=== PATIENT | female | born 1940 | race Caucasian/White ===

== ENCOUNTER 2018-07-13 19:51 | Inpatient (IN) | payer MEDICAID, OTHER ==
[~2018-07-13] VITALS: Ht 157.5 cm; Wt 61.7 kg
[2018-07-13] MEDS ORDERED: ONDANSETRON 4 MG INJ IV STA (20:16)
[2018-07-13] MEDS ORDERED: morphine 4 MG/ML VIAL IV STA (20:16)
[2018-07-13] MEDS ORDERED: SODIUM POLYSTYRENE 15 GM KIT (POWDER + SORBITOL) PO ONE ×2 (21:00→23:30)
--- NOTE | 2018-07-13 21:41 | ERD ---
ER Documentation Chief Complaint Chief Complaint NV W/ COOPER X 3 DAYS; X3 MISSED HD SESSIONS D/T TRANSPORTATION ISSUES HPI 78-year-old female history of end-stage renal disease on dialysis who is now missed the last 3 dialysis sessions. There is an issue because the last transport apparently dropped the patient who suffered a tib-fib fracture on the right and a stump contusion on the left treated at an outside hospital. The family has not been able to arrange transfer to dialysis center. The patient is complaining of a mild headache, generalized malaise weakness and discomfort. During the patient's encounter translation services were utilized Language: Yi Source: In person ROS All systems reviewed and are negative except as per history of present illness. Allergies Allergies: Coded Allergies: No Known Allergy (Unverified , 07/13/18) PMhx/Soc History of Surgery: Yes (BTK,BYPASS) Hx Cardiac Disorders: Yes (HTN) Hx Miscellaneous Medical Probl: Yes (DM,CKF) Hx Alcohol Use: No Hx Substance Use: No Hx Tobacco Use: No Smoking Status: Never smoker FmHx Family History: No diabetes Physical Exam Vitals Vital Signs Date Temp Pulse Resp B/P (MAP) Pulse Ox O2 O2 Flow FiO2 Time Delivery Rate 07/13/18 98.0 63 18 164/63 100 Room Air 20:25 (96) 07/13/18 98.0 75 12 162/78 99 19:58 (106) Physical Exam General: Well developed, well nourished, no acute distress Head: Normocephalic, atraumatic. Eyes: Pupils equally reactive, EOM intact ENT: Moist mucous membranes Neck: Supple, no lymphadenopathy Respiratory: Lungs clear bilaterally, no distress Cardiovascular: RRR, no murmurs, rubs, or gallops Abdominal: Soft, non-tender, non-distended, no peritoneal signs : Deferred MSK: Right lower extremity in a splint appropriately perfused distally. Contusion to the left stump of the lower extremity. Neurologic: Alert and oriented, moving all extremities, normal speech, no focal weakness, no cerebellar signs Skin: No rash Psych: Normal mood Result Diagram: 07/13/18200907/13/182009 Results 24 hrs Laboratory Tests Test 07/13/18 20:10 07/13/18 20:14 White Blood Count 6.6 10^3/ul Red Blood Count 3.54 10^6/ul Hemoglobin 10.9 g/dl Hematocrit 34.1 % Mean Corpuscular Volume 96.3 fl Mean Corpuscular Hemoglobin 30.8 pg Mean Corpuscular Hemoglobin Concent 32.0 g/dl Red Cell Distribution Width 14.9 % Platelet Count 344 10^3/UL Mean Platelet Volume 9.7 fl Immature Granulocytes % 0.500 % Neutrophils % 70.3 % Lymphocytes % 19.2 % Monocytes % 8.5 % Eosinophils % 1.2 % Basophils % 0.3 % Nucleated Red Blood Cells % 0.0 /100WBC Immature Granulocytes # 0.030 10^3/ul Neutrophils # 4.7 10^3/ul Lymphocytes # 1.3 10^3/ul Monocytes # 0.6 10^3/ul Eosinophils # 0.1 10^3/ul Basophils # 0.0 10^3/ul Nucleated Red Blood Cells # 0.0 10^3/ul Prothrombin Time 13.6 Sec Prothrombin Time Ratio 1.1 INR International Normalized Ratio 1.03 Activated Partial Thromboplast Time 41.2 Sec Sodium Level 130 mmol/L Potassium Level 5.6 mmol/L Chloride Level 96 mmol/L Carbon Dioxide Level 17 mmol/L Anion Gap 17 Blood Urea Nitrogen 66 mg/dl Creatinine 5.66 mg/dl Est Glomerular Filtrat Rate mL/min mL/min Glucose Level 93 mg/dl Calcium Level 8.2 mg/dl Troponin I < 0.012 ng/ml POC Venous Lactate 1.6 mmol/L Current Medications Medications Dose Sig/Tamera Start Time Status Last (Trade) Ordered Route PRN Stop Time Admin Dose Reason Admin Morphine 4 mg ONCE STAT 07/13/18 DC 07/13/18 Sulfate IV 20:16 07/13/18 20:20 (morphine) 20:17 Ondansetron 4 mg ONCE STAT 07/13/18 DC 07/13/18 HCl (Zofran IV 20:16 07/13/18 20:20 Inj) 20:17 Sodium 15 gm ONCE ONCE 07/13/18 DC 07/13/18 Polystyrene PO 21:00 07/13/18 21:15 Sulfonate 21:01 (Kayexelate 15 Gm Kit (Powder+Sorbi steven)) Ondansetron 4 mg ER BRIDGE 07/13/18 HCl (Zofran PRN IV 22:00 07/14/18 Inj) NAUSEA/VOMITI 21:59 NG 650 mg ER BRIDGE 07/13/18 Acetaminophen PRN PO 22:00 07/14/18 (Tylenol .MILD PAIN 21:59 Tab) 1-3 OR TEMP Procedures/MDM EKG, MONITORS, & DIAGNOSTIC IMAGING: EKG: I reviewed and interpreted a 12-lead EKG. Rhythm: Normal sinus rhythm ST Changes: No contiguous ST segment elevations T waves: No contiguous T wave inversions Impression: [No evidence of acute cardiac ischemia] CXR IMPRESSION: 1. Cardiomegaly and pulmonary edema with right pleural effusion. 2. Aortic atherosclerosis. 3. Previous median sternotomy. RPTAT:AAJJ CT brain IMPRESSION: 1. No acute intracranial pathology. 2. Mild to moderate diffuse volume loss and mild chronic microvascular ischemic changes. 3. Small right posterior frontal cortical infarct near the vertex. 4. Air-fluid levels in the bilateral sphenoid sinuses which may represent acute sinusitis in the correct clinical setting. RPTAT: HPNM LAB INTERPRETATION: * No evidence of infection with a normal hemoglobin and normal white count * Chemistry with only subtle hyper kalemia 5.6. BUN 66 creatinine 5.66, normal lactate, negative troponin MEDICAL DECISION MAKING: Patient presents with generalized malaise and weakness. She has missed 3 episodes of dialysis. The patient needs to be evaluated for Location such as volume overload and hyperkalemia. She is complaining of a mild headache and warrant CT imaging of the brain. ER COURSE: * Slight hyperkalemia without EKG changes. Written for Kayexalate. The patient vomited the Kayexalate. No indication to rapidly lower the potassium. Dialysis will be appropriate. * Patient was given pain control medication and will be admitted for further management. CONSULTATION: [None] DISPOSITION PLAN: Telemetry admission Accepting care team and consultations: I discussed the current laboratory data, diagnostic imaging and emergency care provided. Admitting team: Dr. Guy Parada Diagnosis: Primary Impression: Hyperkalemia Additional Impressions: End stage renal disease on dialysis Hyponatremia Condition: Stable FADUMO SUE MD Jul 13, 2018 21:41
[2018-07-13] MEDS ORDERED: ASPI81TA50 PO (22:00)
[2018-07-13] MEDS ORDERED: ACETAMINOPHEN 325 MG TAB PO PRN ×2 (22:00→23:30)
[2018-07-13] MEDS ORDERED: ONDANSETRON 4 MG INJ IV PRN (22:00)
[2018-07-13] MEDS ORDERED: CARV3.1260 PO (22:03)
[2018-07-13] MEDS ORDERED: ATOR40TA68 PO (22:03)
[2018-07-13] MEDS ORDERED: PANT20TA2 PO (22:03)
[2018-07-13] MEDS ORDERED: TRAM50TA2 PO (22:03)
[2018-07-13] MEDS ORDERED: NEPH PO (22:03)
[2018-07-13] MEDS ORDERED: CLON-379 PO (22:03)
[2018-07-13] MEDS ORDERED: ISOS60TA PO (22:03)
[2018-07-13 22:16] VITALS: PULSE 80
[2018-07-13 22:27] VITALS: Ht 157.5 cm; Wt 61.7 kg
[2018-07-13] MEDS ORDERED: GLUCOSE GEL 15 GRAM TUBE BUCCAL PRN (23:30)
[2018-07-13] MEDS ORDERED: DEXTROSE 50% 50 ML SYRINGE IV PRN (23:30)
[2018-07-13] MEDS ORDERED: GLUCOSE GEL 15 GRAM TUBE PO PRN ×2 (23:30)
[2018-07-13] MEDS ORDERED: GLUCAGON 1 MG INJ IM PRN (23:30)
[2018-07-14] VITALS (25 sets, daily range): BP systolic 119–197; BP diastolic 50–85; PULSE 62–137; RESP 18–20
[2018-07-14] MEDS: ONDANSETRON 4 MG INJ IV PRN ×4 (00:41→23:30)
[2018-07-14] MEDS: traMADol 50 MG TAB PO PRN (02:00)
[2018-07-14] MEDS ORDERED: PENDING SANTYL ORDER FOR WOUND CARE XX PRN (04:30)
[2018-07-14] MEDS: PANTOPRAZOLE SODIUM 20 MG TABEC PO SCH (05:50)
[2018-07-14] MEDS: HYDROCODONE/APAP (5/325) TAB PO PRN ×2 (06:34→13:03)
[2018-07-14] MEDS ORDERED: HYDROmorphONE 0.5 MG/0.5 ML SYG IV PRN ×2 (07:30→15:30)
[2018-07-14] MEDS: INSULIN ASPART [NOVOLOG] 3 ML PEN SC SCH ×3 (07:48→17:36)
[2018-07-14] MEDS: MULTIVIT/CA CARB/B CMPLX/FA TAB PO SCH (08:08)
[2018-07-14] MEDS: ISOSORBIDE MONONITRATE(SR)60 MG TAB PO SCH (08:08)
[2018-07-14] MEDS: ASPIRIN (EC) 81 MG TAB PO SCH (08:08)
[2018-07-14] MEDS: hydrALAzine 20 MG INJ IV PRN (11:56)
[2018-07-14] MEDS: HYDROmorphONE 0.5 MG/0.5 ML SYG IV PRN (14:25)
--- NOTE | 2018-07-14 14:44 | QN ---
Documentation Comment [id number] SAM KRUEGER MD Jul 14, 2018 14:44
--- NOTE | 2018-07-14 15:12 | HP ---
DATE OF ADMISSION: 07/13/2018 HISTORY OF PRESENT ILLNESS: The patient is with history of ESRD, hypertension, diabetes mellitus, CA D, CHF. The patient has diabetic neuropathy, left eye blindness, has a left below the knee amputatio n. The patient is a poor historian. Denies any fall, but has missed dialysis because of transportat ion issue. She has right lower extremity brace. It is not clear which hospital it was placed in. T he patient does not remember. She presented to this hospital with missing dialysis. The patient was also complaining of pain. The patient's blood pressure was 164/63 in the ER. Potassium was 5.6, BU N 66 and creatinine 5.66. The patient's chest x-ray shows cardiomegaly and pulmonary edema, right pl eural effusion, aortic atherosclerosis, previous median sternotomy. CT brain: No acute intracranial pathology, mild to moderate diffuse volume loss and mild chronic microvascular ischemic changes, sma ll right posterior frontal cortical infarct in the vertex, air fluid levels in the bilateral sphenoid sinuses which may represent acute sinusitis in the correct clinical setting. The patient is complai dustin of pain. Denies any fall or trauma recently. PAST MEDICAL HISTORY: ESRD, hypertension, diabetes mellitus, left BKA, left eye blindness, diabetic retinopathy, CHF, CAD as per patient, history of heart surgery. ALLERGY HISTORY: NEGATIVE. FAMILY HISTORY: Noncontributory. SOCIAL HISTORY: Negative. MEDICATION HISTORY OF PATIENT AT HOME: Listed as: 1. Aspirin. 2. Lipitor. 3. Coreg. 4. Clonidine. 5. Isosorbide. 6. Multiple vitamins. 7. Protonix. 8. Tramadol. 9. Tylenol. 10. Aspirin. 11. Catapres. 12. Hydralazine. 13. Insulin. 14. Zofran. 15. Dilaudid. REVIEW OF SYSTEMS HEENT: Diabetic retinopathy. RESPIRATORY: No shortness of breath or chest pain. ABDOMEN: Unremarkable. EXTREMITIES: Pain in the left stump area. CENTRAL NERVOUS SYSTEM: Unremarkable. PHYSICAL EXAMINATION: GENERAL: The patient is anxious looking female, awake, alert. VITAL SIGNS: Pulse 87, blood pressure 196/85. HEENT: Head is atraumatic, normocephalic. Pupils: Left eye is cloudy, mild conjunctival icterus. NECK: Supple. No JVD. LUNGS: Clear with few basilar rales bilaterally. HEART: The patient has a systolic murmur noted, III/. Component of diastolic murmur also noted at the apex and left sternal border. ABDOMEN: Soft. Bowel sounds are present. No palpable mass or hepatosplenomegaly. Bowel sounds are heard. No palpable. EXTREMITIES: No cyanosis, clubbing. The patient has right lower extremity brace noted. Left stump has bruise. Range of motion is restricted because of the pain. IMPRESSION: 1. Hyperkalemia due to missed hemodialysis. 2. Hyponatremia. 3. Metabolic acidosis. 4. Cardiomegaly and pulmonary edema. 5. Aortic atherosclerosis. 6. History of congestive heart failure. 7. History of diabetic retinopathy, nephropathy. 8. Hypoalbuminemia. 9. The patient has right lower extremity brace. 10. Left stump bruise. PLAN: To obtain x-ray of the right ankle as well as left stump. Continue blood pressure control. C ontinue on Kayexalate, diabetic renal diet, sliding scale, pain medication, hemodialysis. Orders wer e done. Dictated By: SAM KRUEGER MD BS/NTS Conf#: [id number] DID#: [id number]
[2018-07-14] MEDS ORDERED: HEPARIN 1000 UNITS/ML 10 ML INJ CATHETER SCH (20:30)
[2018-07-14] MEDS: ATORVASTATIN 40 MG TAB PO SCH (23:30)
[2018-07-14] MEDS: LOSARTAN 25 MG TAB PO SCH (23:30)
[2018-07-15] VITALS (9 sets, daily range): BP systolic 111–161; BP diastolic 53–84; PULSE 72–101; RESP 16–19
[2018-07-15] MEDS: HYDROmorphONE 0.5 MG/0.5 ML SYG IV PRN ×3 (00:16→20:57)
[2018-07-15] MEDS: INSULIN ASPART [NOVOLOG] 3 ML PEN SC SCH ×3 (08:00→17:18)
[2018-07-15] MEDS: ONDANSETRON 4 MG INJ IV PRN (08:34)
[2018-07-15] MEDS: MULTIVIT/CA CARB/B CMPLX/FA TAB PO SCH (09:27)
[2018-07-15] MEDS: ASPIRIN (EC) 81 MG TAB PO SCH (09:28)
[2018-07-15] MEDS: LOSARTAN 25 MG TAB PO SCH ×2 (09:28→20:56)
[2018-07-15] MEDS: ISOSORBIDE MONONITRATE(SR)60 MG TAB PO SCH (09:28)
[2018-07-15] MEDS: PANTOPRAZOLE SODIUM 20 MG TABEC PO SCH (09:29)
--- NOTE | 2018-07-15 11:12 | PN ---
Date/Time of Note Date/Time of Note DATE: 07/15/18 TIME: 11:12 Assessment/Plan VTE Prophylaxis Risk score (from [facility])>0 risk: 8 SCD applied (from [place]): No SCD contraindicated: low risk/ambulating Pharmacological prophylaxis: NA/contraindicated Pharm contraindication: low risk/ambulating Lines/Catheters IV [facility]from [facility] Urinary Cath still in place: No Assessment/Plan Hospital Course 78 y/o with IMPRESSION: 1. Hyperkalemia due to missed hemodialysis.due to fall 2. Hyponatremia. 3. Metabolic acidosis. 4. Cardiomegaly and pulmonary edema. 5. Aortic atherosclerosis. 6. History of congestive heart failure. 7. History of diabetic retinopathy, nephropathy. 8. Hypoalbuminemia. 9. The patient has right lower extremity brace.with fracture 10. Left stump bruise 11 ? AFIB. Plan - ortho consult - Pain control - cards consult - ASA? - Monitor for afib - CW Coreg/losartan - Pain control Result Diagram: 07/15/18 0456 07/15/18 0456 Results 24hrs Laboratory Tests Test 07/14/18 11:51 07/14/18 17:32 07/15/18 04:56 07/15/18 07:54 Bedside Glucose 90 109 97 White Blood Count 7.5 Red Blood Count 3.27 L Hemoglobin 10.2 L Hematocrit 31.1 L Mean Corpuscular Volume 95.1 Mean Corpuscular 31.2 Hemoglobin Mean Corpuscular 32.8 Hemoglobin Concent Red Cell Distribution 15.6 H Width Platelet Count 293 Mean Platelet Volume 9.7 Immature Granulocytes % 0.500 H Neutrophils % 79.2 H Lymphocytes % 10.1 L Monocytes % 9.9 Eosinophils % 0.0 Basophils % 0.3 Nucleated Red Blood 0.0 Cells % Immature Granulocytes # 0.040 H Neutrophils # 5.9 Lymphocytes # 0.8 Monocytes # 0.7 Eosinophils # 0.0 Basophils # 0.0 Nucleated Red Blood 0.0 Cells # Sodium Level 140 Potassium Level 3.9 Chloride Level 103 Carbon Dioxide Level 27 # Anion Gap 10 # Blood Urea Nitrogen 23 #H Creatinine 3.20 #H Est Glomerular Filtrat Rate mL/min Glucose Level 94 Calcium Level 8.7 Total Bilirubin 0.3 Direct Bilirubin 0.00 Indirect Bilirubin 0.3 Aspartate Amino 35 Transf (AST/SGOT) Alanine 24 Aminotransferase (ALT/SG PT) Alkaline Phosphatase 185 H Total Protein 6.7 Albumin 2.8 L Globulin 3.90 H Albumin/Globulin Ratio 0.71 Subjective 24 Hr Interval Summary Free Text/Dictation AFIB ? Pain in rt ankle Exam/Review of Systems Exam Vitals Vital Signs Date Temp Pulse Resp B/P (MAP) Pulse Ox O2 O2 Flow FiO2 Time Delivery Rate 07/15/18 87 08:00 07/15/18 98.1 16 146/65 98 Room Air 07:59 (92) Intake and Output 07/14/18 07/14/18 07/15/18 1515:00 23:00 07:00 IntakeIntake Total 310 ml 100 ml OutputOutput Total 200 ml 961 ml BalanceBalance 110 ml -861 ml Exam HEENT: Head is atraumatic, normocephalic. Pupils: Left eye is cloudy, mild conjunctival icterus. NECK: Supple. No JVD. LUNGS: Clear with few basilar rales bilaterally. HEART: The patient has a systolic murmur noted, III/. Component of diastolic murmur also noted at the apex and left sternal border. ABDOMEN: Soft. Bowel sounds are present. No palpable mass or hepatosplenomegaly. Bowel sounds are heard. No palpable. EXTREMITIES: No cyanosis, clubbing. The patient has right lower extremity brace noted. Left stump has bruise. Range of motion is restricted because of the pain. Results Results 24hrs Laboratory Tests Test 07/14/18 11:51 07/14/18 17:32 07/15/18 04:56 07/15/18 07:54 Bedside Glucose 90 109 97 White Blood Count 7.5 Red Blood Count 3.27 L Hemoglobin 10.2 L Hematocrit 31.1 L Mean Corpuscular Volume 95.1 Mean Corpuscular 31.2 Hemoglobin Mean Corpuscular 32.8 Hemoglobin Concent Red Cell Distribution 15.6 H Width Platelet Count 293 Mean Platelet Volume 9.7 Immature Granulocytes % 0.500 H Neutrophils % 79.2 H Lymphocytes % 10.1 L Monocytes % 9.9 Eosinophils % 0.0 Basophils % 0.3 Nucleated Red Blood 0.0 Cells % Immature Granulocytes # 0.040 H Neutrophils # 5.9 Lymphocytes # 0.8 Monocytes # 0.7 Eosinophils # 0.0 Basophils # 0.0 Nucleated Red Blood 0.0 Cells # Sodium Level 140 Potassium Level 3.9 Chloride Level 103 Carbon Dioxide Level 27 # Anion Gap 10 # Blood Urea Nitrogen 23 #H Creatinine 3.20 #H Est Glomerular Filtrat Rate mL/min Glucose Level 94 Calcium Level 8.7 Total Bilirubin 0.3 Direct Bilirubin 0.00 Indirect Bilirubin 0.3 Aspartate Amino 35 Transf (AST/SGOT) Alanine 24 Aminotransferase (ALT/SG PT) Alkaline Phosphatase 185 H Total Protein 6.7 Albumin 2.8 L Globulin 3.90 H Albumin/Globulin Ratio 0.71 Medications Medication Current Medications Atorvastatin Calcium (Lipitor) 40 mg QHS PO Last administered on 07/14/18 23:30; Admin Dose 40 MG; Start 07/14/18 at 21:00 Isosorbide Mononitrate (Imdur) 60 mg DAILY PO Last administered on 07/15/18 09:28; Admin Dose 60 MG; Start 07/14/18 at 09:00 Multivit/Ca Carb/ B Cmplx/FA/Prenat (Shyann-Raj) 1 tab DAILY PO Last administered on 07/15/18 09:27; Admin Dose 1 TAB; Start 07/14/18 at 09:00 Pantoprazole Sodium (Protonix) 20 mg DAILY@0600 PO Last administered on 07/15/18 09:29; Admin Dose 20 MG; Start 07/14/18 at 06:00 Tramadol HCl (Ultram) 50 mg TID PRN PO PAIN LEVEL 6-10 Last administered on 07/14/18 02:00; Admin Dose 50 MG; Start 07/13/18 at 23:30 Acetaminophen (Tylenol Tab) 650 mg Q6H PRN PO MILD PAIN(1-3)OR ELEVATED TEMP; Start 07/13/18 at 23:30 Clonidine (Catapres) 0.1 mg Q6H PRN PO sbp over 170; Start 07/13/18 at 23:30 Hydralazine HCl (Apresoline) 20 mg Q6H PRN IV sbp over 170 Last administered on 07/14/18 11:56; Admin Dose 20 MG; Start 07/13/18 at 23:30 Insulin Aspart (Novolog Insulin Pen) 3 unit WITH MEALS SC Last administered on 07/14/18 17:36; Admin Dose 3 UNIT; Start 07/14/18 at 08:00 Miscellaneous Information 1 ea NOTE XX ; Start 07/13/18 at 23:30 Glucose (Glutose) 15 gm Q15M PRN PO DECREASED GLUCOSE; Start 07/13/18 at 23:30 Glucose (Glutose) 22.5 gm Q15M PRN PO DECREASED GLUCOSE; Start 07/13/18 at 23:30 Dextrose (D50w Syringe) 25 ml Q15M PRN IV DECREASED GLUCOSE; Start 07/13/18 at 23:30 Dextrose (D50w Syringe) 50 ml Q15M PRN IV DECREASED GLUCOSE; Start 07/13/18 at 23:30 Glucagon (Glucagen) 1 mg Q15M PRN IM DECREASED GLUCOSE; Start 07/13/18 at 23:30 Glucose (Glutose) 15 gm Q15M PRN BUCCAL DECREASED GLUCOSE; Start 07/13/18 at 23:30 Ondansetron HCl (Zofran Inj) 4 mg Q4H PRN IV NAUSEA AND/OR VOMITING Last administered on 07/15/18at 08:34; Admin Dose 4 MG; Start 07/14/18 at 00:30 Miscellaneous Information (Pending Santyl Order For Wound Care) This patient easley... PRN PRN XX WOUND CARE; Start 07/14/18 at 04:30 Hydromorphone HCl (Dilaudid) 1 mg Q4H PRN IV SEVERE PAIN LEVEL 7-10 Last administered on 07/15/18at 00:16; Admin Dose 1 MG; Start 07/14/18 at 14:15 Clonidine (Catapres) 0.2 mg TID PO Last administered on 07/15/18 09:28; Admin Dose 0.2 MG; Start 07/14/18 at 15:00 Losartan Potassium (Cozaar) 25 mg BID PO Last administered on 07/15/18at 09:28; Admin Dose 25 MG; Start 07/14/18 at 21:00 Heparin Sodium (Porcine) (Heparin (1000 Units/ml)) 3,400 unit ONCE CATHETER Last administered on 07/14/18at 23:36; Admin Dose 3,400 UNIT; Start 07/14/18 at 20:30; Stop 07/15/18 at 20:29 Heparin Sodium (Porcine) (Heparin (5000 Units/1ml)) 5,000 unit BID SC ; Start 07/15/18 at 09:00 Aspirin (Ecotrin) 325 mg DAILY PO ; Start 07/16/18 at 09:00 Carvedilol (Coreg) 6.25 mg BID PO ; Start 07/15/18 at 21:00 ADAM DUARTE MD Jul 15, 2018 11:12
[2018-07-15] MEDS ORDERED: METOPROLOL 5 MG INJ IV PRN (11:30)
--- NOTE | 2018-07-15 13:11 | CONS ---
DATE OF ADMISSION: 07/13/2018 DATE OF CONSULTATION: 07/15/2018 TYPE OF CONSULTATION: Cardiology. REASON FOR CONSULTATION: Cardiac arrhythmia. REQUESTING PHYSICIAN: Pro Krueger MD HISTORY OF PRESENT ILLNESS: Ms. Lanza is a 78-year-old female with history of end-stage renal dise ase on hemodialysis, hypertension, diabetes mellitus, coronary artery disease, congestive heart failu re, left BKA, who presented after missing dialysis. Upon arrival, temperature of 98, blood pressure 162/78, pulse 75, respiratory rate 12, satting 99%. The patient's labs showed white blood cell count 6.6, hemoglobin 10.9, platelet count 344. Sodium 138, potassium 5.6, creatinine 5.66, BUN 66. Trop onin negative. INR of 1.0. The patient underwent a chest x-ray revealing cardiomegaly and pulmonary edema with right pleural effusion, previous median sternotomy. A head CT that revealed no acute int racranial pathology, mild to moderate diffuse volume loss and mild chronic microvascular ischemic lorrie nges and ankle x-ray that revealed slightly displaced fracture in distal tibia and fibula. The patie nt was subsequently admitted to the floor and since admit to the floor, has undergone hemodialysis an d was monitored on telemetry. During telemetry monitoring, the patient was noted to have a cardiac a rrhythmia concerning for possible atrial fibrillation. Given these findings, cardiac consultation easley s been requested. The patient at this time denies chest pain, shortness of breath, palpitations. PAST MEDICAL HISTORY: As above in HPI. MEDICATIONS CURRENTLY IN HOSPITAL: 1. Heparin 5000 subcutaneous b.i.d. 2. Lipitor 40 mg at bedtime. 3. Losartan 25 mg q.i.d. 4. Clonidine 0.2 mg t.i.d. 5. Aspirin 81 mg daily. 6. Imdur 60 mg daily. 7. Shyann-Raj. 8. Insulin. 9. Carvedilol 3.125 mg p.o. b.i.d. 10. Ultram p.r.n. 11. Tylenol p.r.n. 12. Clonidine p.r.n. 13. Hydralazine p.r.n. ALLERGIES: NO KNOWN DRUG ALLERGIES. SOCIAL HISTORY: No current tobacco, EtOH or illicit drug use. FAMILY HISTORY: No history of sudden cardiac or early CAD. REVIEW OF SYSTEMS: As above in HPI. CONSTITUTIONAL: No fevers, chills. PULMONARY: No current shortness of breath. CARDIOVASCULAR: No current chest pain. Possible atrial fibrillation. GASTROINTESTINAL: No vomiting. GENITOURINARY: No hematuria. End-stage renal disease. PSYCHIATRIC: No documented psych history. NEUROLOGIC: No documented history of CVA. ENDOCRINE: Diabetes mellitus. PHYSICAL EXAMINATION: VITAL SIGNS: Temperature of 98.1, blood pressure 146/65, pulse 93, respiratory rate 16, satting 98%. GENERAL: The patient is alert, awake, in no acute distress. NECK: JVP is approximately 8 to 9 cm of water. CHEST: Fair air movement throughout. HEART: Regular rate and rhythm. Normal S1, S2, I/ systolic murmur, frequent PACs. ABDOMEN: Positive bowel sounds, soft. EXTREMITIES: Left lower extremity status post BKA. Right lower extremity trace edema. LABORATORY DATA: Most recently from today, sodium 140, potassium 3.9, creatinine 3.2, BUN of 23. T 35, ALT 24. INR 1.0. White blood cell count 7.5, hemoglobin 10.2, platelet count 293. IMAGING STUDIES: As above in HPI. No further imaging studies for my review at this time. ELECTROCARDIOGRAM: As above in HPI. No further electrocardiogram for my review at this time. IMPRESSION: 1. Cardiac arrhythmia concerning for possible atrial fibrillation but on review of screen likely mor e consistent with sinus rhythm with frequent premature atrial contractions, possible very short run o f paroxysmal atrial fibrillation. We will follow. 2. Abnormal electrocardiogram, assess for acute coronary syndrome. 3. Hypertension, uncontrolled. 4. History of open heart surgery. 5. End-stage renal disease on hemodialysis. 6. Shortness of breath. 7. Congestive heart failure by x-ray, question systolic versus diastolic, likely acute on chronic gi nora presentation. 8. Diabetes mellitus. 9. Ankle fracture. 10. Anemia. RECOMMENDATIONS: 1. At this time, we would maintain the patient on telemetry monitoring to follow rhythm and rates cl osely. 2. Continue the patient's current carvedilol for future bouts of cardiac rhythm, but we will increas e dose and then follow blood pressure. 3. We will continue the patient's subcutaneous heparin and aspirin at this time for prophylaxis agai nst possible thromboembolic events in setting of questionable atrial fibrillation versus sinus rhythm , PACs. 4. Check TSH to be sure subclinical hyperthyroidism is not contributing to any bouts of cardiac arrh ythmia. 5. Continue the patient's clonidine and losartan additionally for blood pressure control with furthe r up titration as necessary to improve overall systolic blood pressure control along with carvedilol. 6. Continue hemodialysis for volume removal. 7. Continue the patient's statin and adjust it according to a fasting lipid panel checked and we eda l check a 2D echo to further assess patient's ejection fraction, wall motion, rule any major valve ab normalities. Thank you for allowing me to take part in the care of this patient. I will continue to follow very c losely with you with further recommendations to be made as the patient progresses through her [facility] clinical course. Dictated By: JUSTICE MOSLEY/NTS Conf#: [id number] DID#: [id number] CC: PRO KRUEGER MD; ADAM DUARTE; SCHUYLER DARNELL MD;*EndCC*
--- NOTE | 2018-07-15 13:57 | RADRPT ---
Echocardiogram Report Patient Name: Lauryn GUSMAN ID: [id number] : 1940 (78y 5m)Study Date: 07/15/2018 11:03:30 AM Gender: FAccession #: [id number] Tech: Luis A [facility] Location: [facility] Ref.Physician: JUSTICE VILLANUEVA Height(Cm): BSA: Weight(Kg): Quality: Technically Difficult StudyAccount #: Procedures: Echocardiographic Report: Transthoracic echocardiogram with complete 2D, M-Mode, and doppler examination. Indications: Atrial Flutter. Measurements: 2D/M Mode Doppler Measurement Value Normal Range Measurement Value Normal Range LVIDd 2D 4.1 [ 3.8 - 5.2 ] cm REUBEN Vmax 1.8 [ 2.0 - 4.0 ] cm2 LVIDs 2D 2.5 [ 2.2 - 3.5 ] cm AV Mean Jameson 1.2 [ 70.0 - 90.0 ] cm/sec LVPWd 2D 1.0 [ 0.6 - 0.9 ] cm AV Mean PG 8.0 [ 2.0 - 4.0 ] mmHg IVSd 2D 1.2 [ 0.6 - 0.9 ] cm AV Peak Jameson 2.0 [ 100.0 - 170.0 ] cm/sec IVS/LVPW 2D 1.2 ratio AV Peak PG 17.0 [ 2.0 - 9.0 ] mmHg AoR Diam 2D 2.6 [ 2.3 - 3.1 ] cm AV VTI 39.3 cm LA/Ao 2D 2 ratio LVOT Peak Jameson 1.3 [ 70.0 - 110.0 ] cm/sec LA Dimen 2D 4.1 [ 2.7 - 3.8 ] cm LVOT Peak PG 7.0 [ 2.0 - 6.0 ] mmHg LVOT Diam 1.9 [ 2.1 - 2.5 ] cm MV E Peak Jameson 1.2 [ 60.0 - 130.0 ] cm/sec LVOT Area 2.8 cm2 MV A Peak Jameson 0.7 [ 100.0 - 120.0 ] cm/sec MV E/A 1.7 [ 0.8 - 1.5 ] ratio MV Decel Time 243 [ 104 - 258 ] msec Lat E` Jameson 0.1 [ 10.0 - 15.0 ] cm/sec Med E` Jameson 0.0 cm/sec MV E/A 1.7 [ 0.8 - 1.5 ] ratio TR Peak Jameson 4.9 [ 100.0 - 280.0 ] cm/sec TR Peak PG 96.0 mmHg RVSP 99.0 [ 10.0 - 36.0 ] mmHg Findings: Left Ventricle: Normal left ventricular systolic function. Normal left ventricular cavity size. Sigmoid septum. Ejection fraction is visually estimated at 55-60 %. Tissue Doppler/Mitral Doppler indices are consistent with impaired relaxation (Stage I diastolic dysfunction). Right Ventricle: Normal right ventricular size. Normal right ventricular systolic function. Left Atrium: There is mild enlargement of left atrium. Right Atrium: The right atrium is normal in size. Mitral Valve: Mild mitral leaflet calcification. Mild mitral annular calcification. Mild to moderate mitral valve regurgitation. The regurgitation jet is eccentrically directed which may underestimate the severity of mitral regurgitation. Aortic Valve: Mild aortic stenosis. Aortic valve Max velocity 2.05 m/sec. Max PG 17.00 mmHg. Mean PG 8.00 mmHg. Aortic valve area 1.80 cm2. Aortic cusps appear mildly calcified. Tricuspid Valve: Normal appearance of the tricuspid valve. Estimated peak PA systolic pressure 99 mmHg. There is moderate to severe tricuspid regurgitation. Pericardium: Normal pericardium with no significant pericardial effusion. Aorta: Normal aortic root. IVC: Normal size and normal respiratory collapse consistent with normal right atrial pressure. Conclusions: Normal left ventricular systolic function. Normal left ventricular cavity size. Sigmoid septum. Ejection fraction is visually estimated at 55-60 %. Tissue Doppler/Mitral Doppler indices are consistent with impaired relaxation (Stage I diastolic dysfunction). There is mild enlargement of left atrium. Mild mitral leaflet calcification. Mild mitral annular calcification. Mild to moderate mitral valve regurgitation. The regurgitation jet is eccentrically directed which may underestimate the severity of mitral regurgitation. Mild aortic stenosis. Aortic valve Max velocity 2.05 m/sec. Max PG 17.00 mmHg. Mean PG 8.00 mmHg. Aortic valve area 1.80 cm2. Aortic cusps appear mildly calcified. Normal appearance of the tricuspid valve. Estimated peak PA systolic pressure 99 mmHg. There is moderate to severe tricuspid regurgitation. Electronically Signed By: Justice Villanueva 2018-07-15 13:56:45 PST
[2018-07-15] MEDS: traMADol 50 MG TAB PO PRN ×2 (14:33→23:07)
--- NOTE | 2018-07-15 16:14 | CONS ---
DATE OF ADMISSION: 07/13/2018 DATE OF CONSULTATION: 07/15/2018 TYPE OF CONSULTATION: Orthopedic surgery. 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 She obviously had a ground-level fall about 2 weeks ago and was initially taken to [facility]. She obviously was evaluated in the emergency room and she was found to have a fracture inv olving the right ankle and was discharged following the immobilization of the right ankle in a short leg cast. She was advised to seek further care as an outpatient from an orthopedic surgeon; however she was not able to see an orthopedic surgeon because of her social condition. PHYSICAL EXAMINATION: My examination revealed a 78-year-old female who was not in any acute distress . Her right lower extremity was immobilized in a short leg posterior splint. There was no obvious n eurovascular compromise in the limited examination because of the splint. DIAGNOSTIC STUDIES: X-rays of the right ankle revealed a tibial plafond fracture of the right ankle which is displaced. It was also noted that there is an extensive osteopenia because of her kidney co ndition. DIAGNOSTIC IMPRESSION: Tibial plafond fracture, 2 weeks' old, initially treated nonsurgically with t he splint immobilization. TREATMENT PLAN: 1. Obtain CT scan of the right ankle to assess the fracture better. 2. Possible manipulative reduction under anesthesia and under fluoroscopic monitoring followed by im mobilization in a short leg cast. It may be better to avoid open reduction and internal fixation at this time because of the delay in proper treatment and because of the severe osteoporosis arising fro m her kidney condition. Dictated By: SCHUYLER DARNELL MD IK/NTS Conf#: [id number] DID#: [id number] CC: SAM KRUEGER MD;*EndCC*
[2018-07-15] MEDS ORDERED: HEPARIN 1000 UNITS/ML 10 ML INJ CATHETER SCH (17:00)
[2018-07-15] MEDS: HEPARIN 5,000 UNIT/1 ML VIAL SC SCH ×2 (20:19→21:01)
[2018-07-15] MEDS: ATORVASTATIN 40 MG TAB PO SCH (20:55)
[2018-07-16] VITALS (26 sets, daily range): BP systolic 108–140; BP diastolic 44–70; PULSE 63–82; RESP 16–18
[2018-07-16] MEDS: HYDROmorphONE 0.5 MG/0.5 ML SYG IV PRN ×4 (01:03→21:26)
[2018-07-16] MEDS: PANTOPRAZOLE SODIUM 20 MG TABEC PO SCH (07:45)
[2018-07-16] MEDS: MULTIVIT/CA CARB/B CMPLX/FA TAB PO SCH (08:15)
[2018-07-16] MEDS: ASPIRIN (EC) 325 MG TAB PO SCH (08:16)
[2018-07-16] MEDS: ISOSORBIDE MONONITRATE(SR)60 MG TAB PO SCH (08:17)
[2018-07-16] MEDS: LOSARTAN 25 MG TAB PO SCH ×2 (08:17→21:25)
[2018-07-16] MEDS: INSULIN ASPART [NOVOLOG] 3 ML PEN SC SCH ×3 (08:37→17:21)
[2018-07-16] MEDS: HEPARIN 5,000 UNIT/1 ML VIAL SC SCH ×2 (08:37→21:36)
--- NOTE | 2018-07-16 09:03 | CONS ---
Consult Date/Type/Reason Admit Date/Time Jul 13, 2018 at 21:32 Initial Consult Date Date/Time of Note DATE: 07/16/18 TIME: 09:00 Subjective No acute events - no significant ectopy on telemetry. ROS: No fever, no chills, no nausea, no vomiting, no diarrhea/constipation No recent weight changes No chest pain, no PND, no orthopnea - mild SOB No dizziness, blurred vision No thirst, no heat or cold intolerance Objective Vitals Vital Signs Date Temp Pulse Resp B/P (MAP) Pulse Ox O2 O2 Flow FiO2 Time Delivery Rate 07/16/18 81 08:54 07/16/18 97.8 16 134/56 98 07:37 (82) 07/15/18 Room Air 15:15 Intake and Output 07/15/18 07/15/18 07/16/18 1414:59 22:59 06:59 IntakeIntake Total 360 ml 200 ml OutputOutput Total 50 ml BalanceBalance 310 ml 200 ml Exam General: WN/WD/NAD, AOx comfortbale, sleepy HEENT: Unicetric/atraumatic/EOMI (does not follow commands) NECK: JVD elevated, no thyromegaly Lymph: no lymphadenopathy HEART: regular with no S3, II/ systolic murmur at apex, PMI L LUNGS: Coarse sounds, HD catheter on right chest ABD: soft, NT, ND, +BS : Intact Neuro: non focal SKIN: chronic changes EXT: amput Results/Medications Result Diagram: 07/15/18 0456 07/16/18 0641 Results 24 hrs Laboratory Tests Test 07/15/18 10:45 07/15/18 11:46 07/15/18 12:15 07/15/18 17:09 Creatine Kinase 82 73 Creatine Kinase Index 3.5 3.6 Creatinine Kinase MB 2.91 H 2.60 H (Mass) Troponin I 0.229 *H 0.274 *H Bedside Glucose 106 141 Test 07/15/18 18:27 07/16/18 00:41 07/16/18 06:41 07/16/18 08:13 Troponin I 0.307 *H 0.273 *H Creatine Kinase 74 Creatine Kinase Index 2.5 Creatinine Kinase MB 1.88 (Mass) Sodium Level 137 Potassium Level 3.3 L Chloride Level 102 Carbon Dioxide Level 26 Anion Gap 9 Blood Urea Nitrogen 29 H Creatinine 3.98 H Est Glomerular Filtrat Rate mL/min Glucose Level 115 Calcium Level 8.4 Triglycerides Level 103 Cholesterol Level 71 L LDL Cholesterol, 19 Calculated HDL Cholesterol 31 L Cholesterol/HDL Ratio 2.2 Bedside Glucose 210 Home Meds Reported Medications Atorvastatin* (Atorvastatin*) 40 Mg Tablet, 40 MG PO QHS, #30 TAB 07/13/18 Carvedilol* (Carvedilol*) 3.125 Mg Tablet, 3.125 MG PO BID, #60 TAB 07/13/18 Tramadol HCl (Tramadol HCl) 50 Mg Tablet, 50 MG PO TID PRN for PAIN LEVEL 6-10, #90 TAB 07/13/18 Multivit/Ca Carb/B Cmplx/Fa* (Shyann-Raj*) 1 Tab Tab, 1 TAB PO DAILY, TAB 07/13/18 Isosorbide Mononitrate* (Isosorbide Mononitrate*) 60 Mg Tab.er.24h, 60 MG PO DAILY, TAB 07/13/18 Pantoprazole* (Protonix*) 20 Mg Tablet.dr, 20 MG PO DAILY, TAB 07/13/18 Clonidine Hcl* (Clonidine Hcl*) 0.1 Mg Tab, 0.1 MG PO BID, TAB 07/13/18 Aspirin (Aspir-Low) 81 Mg Tablet.dr, 81 MG PO DAILY 07/13/18 Medications Current Medications Atorvastatin Calcium (Lipitor) 40 mg QHS PO Last administered on 07/15/18at 20:55; Admin Dose 40 MG; Start 07/14/18 at 21:00 Isosorbide Mononitrate (Imdur) 60 mg DAILY PO Last administered on 07/15/18at 09:28; Admin Dose 60 MG; Start 07/14/18 at 09:00 Multivit/Ca Carb/ B Cmplx/FA/Prenat (Shyann-Raj) 1 tab DAILY PO Last administered on 07/16/18at 08:15; Admin Dose 1 TAB; Start 07/14/18 at 09:00 Pantoprazole Sodium (Protonix) 20 mg DAILY@0600 PO Last administered on 07/15/18at 09:29; Admin Dose 20 MG; Start 07/14/18 at 06:00 Tramadol HCl (Ultram) 50 mg TID PRN PO PAIN LEVEL 6-10 Last administered on 07/15/18at 23:07; Admin Dose 50 MG; Start 07/13/18 at 23:30 Acetaminophen (Tylenol Tab) 650 mg Q6H PRN PO MILD PAIN(1-3)OR ELEVATED TEMP; Start 07/13/18 at 23:30 Clonidine (Catapres) 0.1 mg Q6H PRN PO sbp over 170; Start 07/13/18 at 23:30 Hydralazine HCl (Apresoline) 20 mg Q6H PRN IV sbp over 170 Last administered on 07/14/18at 11:56; Admin Dose 20 MG; Start 07/13/18 at 23:30 Insulin Aspart (Novolog Insulin Pen) 3 unit WITH MEALS SC Last administered on 07/16/18at 08:37; Admin Dose 3 UNIT; Start 07/14/18 at 08:00 Miscellaneous Information 1 ea NOTE XX ; Start 07/13/18 at 23:30 Glucose (Glutose) 15 gm Q15M PRN PO DECREASED GLUCOSE; Start 07/13/18 at 23:30 Glucose (Glutose) 22.5 gm Q15M PRN PO DECREASED GLUCOSE; Start 07/13/18 at 23:30 Dextrose (D50w Syringe) 25 ml Q15M PRN IV DECREASED GLUCOSE; Start 07/13/18 at 23:30 Dextrose (D50w Syringe) 50 ml Q15M PRN IV DECREASED GLUCOSE; Start 07/13/18 at 23:30 Glucagon (Glucagen) 1 mg Q15M PRN IM DECREASED GLUCOSE; Start 07/13/18 at 23:30 Glucose (Glutose) 15 gm Q15M PRN BUCCAL DECREASED GLUCOSE; Start 07/13/18 at 23:30 Ondansetron HCl (Zofran Inj) 4 mg Q4H PRN IV NAUSEA AND/OR VOMITING Last administered on 07/15/18at 08:34; Admin Dose 4 MG; Start 07/14/18 at 00:30 Miscellaneous Information (Pending [facility] Order For Wound Care) This patient easley... PRN PRN XX WOUND CARE; Start 07/14/18 at 04:30 Hydromorphone HCl (Dilaudid) 1 mg Q4H PRN IV SEVERE PAIN LEVEL 7-10 Last administered on 07/16/18at 06:10; Admin Dose 1 MG; Start 07/14/18 at 14:15 Clonidine (Catapres) 0.2 mg TID PO Last administered on 07/15/18 20:57; Admin Dose 0.2 MG; Start 07/14/18 at 15:00 Losartan Potassium (Cozaar) 25 mg BID PO Last administered on 07/15/18 20:56; Admin Dose 25 MG; Start 07/14/18 at 21:00 Heparin Sodium (Porcine) (Heparin (5000 Units/1ml)) 5,000 unit BID SC Last administered on 07/16/18 08:37; Admin Dose 5,000 UNIT; Start 07/15/18 at 09:00 Aspirin (Ecotrin) 325 mg DAILY PO Last administered on 07/16/18 08:16; Admin Dose 325 MG; Start 07/16/18 at 09:00 Carvedilol (Coreg) 6.25 mg BID PO Last administered on 07/16/18 08:17; Admin Dose 6.25 MG; Start 07/15/18 at 21:00 Metoprolol Tartrate (Lopressor) 5 mg Q4H PRN IV HR>110 Hold SBP<100; Start 07/15/18 at 11:30 Heparin Sodium (Porcine) (Heparin (1000 Units/ml)) 4,000 unit AFTER DIALYSIS CATHETER ; Start 07/15/18 at 17:00 Assessment/Plan Hospital Course (Demo Recall) 1. Cardiac arrhythmia concerning for possible atrial fibrillation but on review of screen likely more consistent with sinus rhythm with frequent premature atrial contractions, possible very short run of paroxysmal atrial fibrillation. We will follow. Pt had a short episode of a. fib - bach to sinus now. 2. Abnormal electrocardiogram, assess for acute coronary syndrome - r/o Mi. 3. Hypertension, uncontrolled - con't to adjust Rx and HD. 4. History of open heart surgery - no CP now. 5. End-stage renal disease on hemodialysis. 6. Shortness of breath. 7. Congestive heart failure by x-ray, question systolic versus diastolic, likely acute on chronic given presentation. Con't to remove fluid as tolerated. 8. Diabetes mellitus- on meds, keep euglycemic. 9. Ankle fracture.- awaiting CT results. 10. Anemia. AMY GRIDER MD Jul 16, 2018 09:03
[2018-07-16] MEDS ORDERED: POTASSIUM CHLORIDE (SR) 20 MEQ TAB PO STA (11:08)
[2018-07-16] MEDS: ONDANSETRON 4 MG INJ IV PRN (11:09)
--- NOTE | 2018-07-16 11:16 | PN ---
Date/Time of Note Date/Time of Note DATE: 07/16/18 TIME: 11:10 Assessment/Plan VTE Prophylaxis Risk score (from Ns)>0 risk: 13 SCD applied (from Ns): No SCD contraindicated: low risk/ambulating Pharmacological prophylaxis: NA/contraindicated Pharm contraindication: low risk/ambulating Lines/Catheters IV [facility] Urinary Cath still in place: No Assessment/Plan Hospital Course 78 y/o with IMPRESSION: 1. Hyperkalemia due to missed hemodialysis.due to fall 2 Acute comminuted fractures of the distal tibia and fibula that involve the distal tibiofibular joint. Distal tibia fracture extends to within 0.3 cm of the tibial plafond but does not involve the articular surface. The appearance is in keeping with an extra-articular Pilon fracture. 2. Hyponatremia. resolved 3. Metabolic acidosis. 4. Cardiomegaly and pulmonary edema. 5. Aortic atherosclerosis. 6. History of congestive heart failure. 7. History of diabetic retinopathy, nephropathy. 8. Hypoalbuminemia. 9. The patient has right lower extremity brace.with fracture 10. Left stump bruise 11 ? AFIB. 12 Congestive heart failure by x-ray, question systolic versus diastolic, likely acute on chronic given presentation. 13 elevated troponin in the setting of end-stage kidney disease Plan -Patient has elevated troponin echo reviewed spoke to Dr. Boston, she will need possible manipulative reduction under anesthesia and under fluoroscopic monitoring followed by immobilization in a short leg cast, spoke to Dr Cruz will do cardiac clearance - Pain control, dilaudid/[place] -Potassium repletion -hd today - Monitor for afib - CW Coreg/losartan/imdur - Pain control Result Diagram: 07/15/18 0456 07/16/18 0641 Results 24hrs Laboratory Tests Test 07/15/18 11:46 07/15/18 12:15 07/15/18 17:09 07/15/18 18:27 Bedside Glucose 106 141 Creatine Kinase 73 Creatine Kinase Index 3.6 Creatinine Kinase MB 2.60 H (Mass) Troponin I 0.274 *H 0.307 *H Test 07/16/18 00:41 07/16/18 06:41 07/16/18 08:13 Creatine Kinase 74 Creatine Kinase Index 2.5 Creatinine Kinase MB 1.88 (Mass) Troponin I 0.273 *H Sodium Level 137 Potassium Level 3.3 L Chloride Level 102 Carbon Dioxide Level 26 Anion Gap 9 Blood Urea Nitrogen 29 H Creatinine 3.98 H Est Glomerular Filtrat Rate mL/min Glucose Level 115 Calcium Level 8.4 Triglycerides Level 103 Cholesterol Level 71 L LDL Cholesterol, 19 Calculated HDL Cholesterol 31 L Cholesterol/HDL Ratio 2.2 Bedside Glucose 210 Subjective 24 Hr Interval Summary Free Text/Dictation Pain in the left stump site Potassium 3.2 Exam/Review of Systems Exam Vitals Vital Signs Date Temp Pulse Resp B/P (MAP) Pulse Ox O2 O2 Flow FiO2 Time Delivery Rate 07/16/18 81 08:54 07/16/18 97.8 16 134/56 98 07:37 (82) 07/15/18 Room Air 15:15 Intake and Output 07/15/18 07/15/18 07/16/18 1515:00 23:00 07:00 IntakeIntake Total 360 ml 200 ml OutputOutput Total 50 ml BalanceBalance 310 ml 200 ml Exam HEENT: Head is atraumatic, normocephalic. Pupils: Left eye is cloudy, mild conjunctival icterus. NECK: Supple. No JVD. LUNGS: Clear with few basilar rales bilaterally. HEART: The patient has a systolic murmur noted, III/. Component of diastolic murmur also noted at the apex and left sternal border. ABDOMEN: Soft. Bowel sounds are present. No palpable mass or hepatosplenomegaly. Bowel sounds are heard. No palpable. EXTREMITIES: No cyanosis, clubbing. The patient has right lower extremity brace noted. Left stump has bruise. Range of motion is restricted because of the pain. Results Results 24hrs Laboratory Tests Test 07/15/18 11:46 07/15/18 12:15 07/15/18 17:09 07/15/18 18:27 Bedside Glucose 106 141 Creatine Kinase 73 Creatine Kinase Index 3.6 Creatinine Kinase MB 2.60 H (Mass) Troponin I 0.274 *H 0.307 *H Test 07/16/18 00:41 07/16/18 06:41 07/16/18 08:13 Creatine Kinase 74 Creatine Kinase Index 2.5 Creatinine Kinase MB 1.88 (Mass) Troponin I 0.273 *H Sodium Level 137 Potassium Level 3.3 L Chloride Level 102 Carbon Dioxide Level 26 Anion Gap 9 Blood Urea Nitrogen 29 H Creatinine 3.98 H Est Glomerular Filtrat Rate mL/min Glucose Level 115 Calcium Level 8.4 Triglycerides Level 103 Cholesterol Level 71 L LDL Cholesterol, 19 Calculated HDL Cholesterol 31 L Cholesterol/HDL Ratio 2.2 Bedside Glucose 210 Medications Medication Current Medications Atorvastatin Calcium (Lipitor) 40 mg QHS PO Last administered on 07/15/18 20:55; Admin Dose 40 MG; Start 07/14/18 at 21:00 Isosorbide Mononitrate (Imdur) 60 mg DAILY PO Last administered on 07/15/18 09:28; Admin Dose 60 MG; Start 07/14/18 at 09:00 Multivit/Ca Carb/ B Cmplx/FA/Prenat (Shyann-Raj) 1 tab DAILY PO Last administered on 07/16/18 08:15; Admin Dose 1 TAB; Start 07/14/18 at 09:00 Pantoprazole Sodium (Protonix) 20 mg DAILY@0600 PO Last administered on 07/15/18 09:29; Admin Dose 20 MG; Start 07/14/18 at 06:00 Tramadol HCl (Ultram) 50 mg TID PRN PO PAIN LEVEL 6-10 Last administered on 07/15/18 23:07; Admin Dose 50 MG; Start 07/13/18 at 23:30 Acetaminophen (Tylenol Tab) 650 mg Q6H PRN PO MILD PAIN(1-3)OR ELEVATED TEMP; Start 07/13/18 at 23:30 Clonidine (Catapres) 0.1 mg Q6H PRN PO sbp over 170; Start 07/13/18 at 23:30 Hydralazine HCl (Apresoline) 20 mg Q6H PRN IV sbp over 170 Last administered on 07/14/18 11:56; Admin Dose 20 MG; Start 07/13/18 at 23:30 Insulin Aspart (Novolog Insulin Pen) 3 unit WITH MEALS SC Last administered on 07/16/18 08:37; Admin Dose 3 UNIT; Start 07/14/18 at 08:00 Miscellaneous Information 1 ea NOTE XX ; Start 07/13/18 at 23:30 Glucose (Glutose) 15 gm Q15M PRN PO DECREASED GLUCOSE; Start 07/13/18 at 23:30 Glucose (Glutose) 22.5 gm Q15M PRN PO DECREASED GLUCOSE; Start 07/13/18 at 23:30 Dextrose (D50w Syringe) 25 ml Q15M PRN IV DECREASED GLUCOSE; Start 07/13/18 at 23:30 Dextrose (D50w Syringe) 50 ml Q15M PRN IV DECREASED GLUCOSE; Start 07/13/18 at 23:30 Glucagon (Glucagen) 1 mg Q15M PRN IM DECREASED GLUCOSE; Start 07/13/18 at 23:30 Glucose (Glutose) 15 gm Q15M PRN BUCCAL DECREASED GLUCOSE; Start 07/13/18 at 23:30 Ondansetron HCl (Zofran Inj) 4 mg Q4H PRN IV NAUSEA AND/OR VOMITING Last administered on 07/16/18 11:09; Admin Dose 4 MG; Start 07/14/18 at 00:30 Miscellaneous Information (Pending [facility] Order For Wound Care) This patient easley... PRN PRN XX WOUND CARE; Start 07/14/18 at 04:30 Hydromorphone HCl (Dilaudid) 1 mg Q4H PRN IV SEVERE PAIN LEVEL 7-10 Last administered on 07/16/18 11:09; Admin Dose 1 MG; Start 07/14/18 at 14:15 Clonidine (Catapres) 0.2 mg TID PO Last administered on 07/15/18 20:57; Admin Dose 0.2 MG; Start 07/14/18 at 15:00 Losartan Potassium (Cozaar) 25 mg BID PO Last administered on 07/15/18 20:56; Admin Dose 25 MG; Start 07/14/18 at 21:00 Heparin Sodium (Porcine) (Heparin (5000 Units/1ml)) 5,000 unit BID SC Last administered on 07/16/18 08:37; Admin Dose 5,000 UNIT; Start 07/15/18 at 09:00 Aspirin (Ecotrin) 325 mg DAILY PO Last administered on 07/16/18 08:16; Admin Dose 325 MG; Start 07/16/18 at 09:00 Carvedilol (Coreg) 6.25 mg BID PO Last administered on 07/16/18 08:17; Admin Dose 6.25 MG; Start 07/15/18 at 21:00 Metoprolol Tartrate (Lopressor) 5 mg Q4H PRN IV HR>110 Hold SBP<100; Start 07/15/18 at 11:30 Heparin Sodium (Porcine) (Heparin (1000 Units/ml)) 4,000 unit AFTER DIALYSIS CATHETER ; Start 07/15/18 at 17:00 Potassium Chloride (Klor-Con 20) 20 meq ONCE STAT PO ; Start 07/16/18 at 11:08; Stop 07/16/18 at 11:09; Status UNV ADAM DUARTE MD Jul 16, 2018 11:16
[2018-07-16] MEDS: traMADol 50 MG TAB PO PRN (17:39)
[2018-07-16] MEDS: HYDROCODONE/APAP (5/325) TAB PO PRN (19:48)
[2018-07-16] MEDS: ATORVASTATIN 40 MG TAB PO SCH (21:24)
[2018-07-16] MEDS: BALSAM PERU/CASTOR OIL 60 GM TUBE TOP SCH (21:26)
[2018-07-16] MEDS: MUPIROCIN 2% 22 GM OINT TOP SCH (21:26)
[2018-07-17] VITALS (10 sets, daily range): BP systolic 116–167; BP diastolic 51–68; PULSE 47–119; RESP 16–18
[2018-07-17] MEDS: HYDROCODONE/APAP (5/325) TAB PO PRN ×3 (06:56→21:18)
[2018-07-17] MEDS: PANTOPRAZOLE SODIUM 20 MG TABEC PO SCH (06:56)
[2018-07-17] MEDS: INSULIN ASPART [NOVOLOG] 3 ML PEN SC SCH ×3 (07:47→17:07)
[2018-07-17] MEDS: MULTIVIT/CA CARB/B CMPLX/FA TAB PO SCH (08:34)
[2018-07-17] MEDS: ASPIRIN (EC) 325 MG TAB PO SCH (08:34)
[2018-07-17] MEDS: ISOSORBIDE MONONITRATE(SR)60 MG TAB PO SCH (08:37)
[2018-07-17] MEDS: LOSARTAN 25 MG TAB PO SCH ×2 (08:37→21:18)
[2018-07-17] MEDS: MUPIROCIN 2% 22 GM OINT TOP SCH ×2 (08:38→21:18)
[2018-07-17] MEDS: BALSAM PERU/CASTOR OIL 60 GM TUBE TOP SCH ×2 (08:38→21:18)
[2018-07-17] MEDS: HEPARIN 5,000 UNIT/1 ML VIAL SC SCH ×2 (08:45→21:25)
--- NOTE | 2018-07-17 12:05 | PN ---
Date/Time of Note Date/Time of Note DATE: 07/17/18 TIME: 11:59 Assessment/Plan VTE Prophylaxis Risk score (from Ns)>0 risk: 14 SCD applied (from Ns): No SCD contraindicated: low risk/ambulating Pharmacological prophylaxis: NA/contraindicated Pharm contraindication: low risk/ambulating Lines/Catheters [facility]from [facility] Saline Lock Urinary Cath still in place: No Assessment/Plan Hospital Course 78 y/o with IMPRESSION: 1. Hyperkalemia due to missed hemodialysis.due to fall 2 Acute comminuted fractures of the distal tibia and fibula that involve the distal tibiofibular joint. Distal tibia fracture extends to within 0.3 cm of the tibial plafond but does not involve the articular surface. The appearance is in keeping with an extra-articular Pilon fracture. 2. Hyponatremia. resolved 3. Metabolic acidosis. 4. Cardiomegaly and pulmonary edema. 5. Aortic atherosclerosis. 6. History of congestive heart failure. 7. History of diabetic retinopathy, nephropathy. 8. Hypoalbuminemia. 9. The patient has right lower extremity brace.with fracture 10. Left stump bruise 11 ? AFIB. 12 Congestive heart failure by x-ray, question systolic versus diastolic, likely acute on chronic given presentation. 13 elevated troponin in the setting of end-stage kidney disease Plan -Patient has elevated troponin echo reviewed spoke to Dr. Boston, she will need possible manipulative reduction under anesthesia and under fluoroscopic monitoring followed by immobilization in a short leg cast, heart rate was in 40s last night hold beta-mario titrate down the doseof clonidine -We will start on low-dose hydralazine for BP control -Spoke to Dr. Villanueva will wait for cardiac clearance - Pain control, dilaudid/ -hd TTS, Next HD tomorrow - Monitor for afib - CW /losartan/imdur - Pain control -GI/DVT prophylaxis Result Diagram: 07/15/18 0456 07/17/18 0521 Results 24hrs Laboratory Tests Test 07/16/18 16:50 07/17/18 05:21 07/17/18 07:38 07/17/18 11:48 Bedside Glucose 115 98 140 Sodium Level 137 Potassium Level 4.3 Chloride Level 105 Carbon Dioxide Level 28 Anion Gap 4 L Blood Urea Nitrogen 11 # Creatinine 2.22 #H Est Glomerular Filtrat Rate mL/min Glucose Level 92 Calcium Level 8.2 L Phosphorus Level 3.4 Magnesium Level 1.9 Subjective 24 Hr Interval Summary Free Text/Dictation Heart rate in 40s last night pain is pain still there in the right leg waiting For cardiac clearance. Exam/Review of Systems Exam Vitals Vital Signs Date Temp Pulse Resp B/P (MAP) Pulse Ox O2 O2 Flow FiO2 Time Delivery Rate 07/17/18 97.8 53 17 118/51 100 11:58 (73) 07/16/18 Room Air 21:22 Intake and Output 07/16/18 07/16/18 07/17/18 1515:00 23:00 07:00 IntakeIntake Total 350 ml 200 ml OutputOutput Total 1400 ml BalanceBalance -1050 ml 200 ml Exam Exam HEENT: Head is atraumatic, normocephalic. Pupils: Left eye is cloudy, mild c onjunctival icterus. NECK: Supple. No JVD. LUNGS: Clear with few basilar rales bilaterally. HEART: The patient has a systolic murmur noted, III/. Component of diastolic murmur also noted at the apex and left sternal border. ABDOMEN: Soft. Bowel sounds are present. No palpable mass or hepat osplenomegaly. Bowel sounds are heard. No palpable. EXTREMITIES: No cyanosis, clubbing. The patient has right lower extremity brace noted. Left stump has bruise. Range of motion is restricted because of the pain. Results Results 24hrs Laboratory Tests Test 07/16/18 16:50 07/17/18 05:21 07/17/18 07:38 07/17/18 11:48 Bedside Glucose 115 98 140 Sodium Level 137 Potassium Level 4.3 Chloride Level 105 Carbon Dioxide Level 28 Anion Gap 4 L Blood Urea Nitrogen 11 # Creatinine 2.22 #H Est Glomerular Filtrat Rate mL/min Glucose Level 92 Calcium Level 8.2 L Phosphorus Level 3.4 Magnesium Level 1.9 Medications Medication Current Medications Atorvastatin Calcium (Lipitor) 40 mg QHS PO Last administered on 07/16/18at 21:24; Admin Dose 40 MG; Start 07/14/18 at 21:00 Isosorbide Mononitrate (Imdur) 60 mg DAILY PO Last administered on 07/17/18at 08:37; Admin Dose 60 MG; Start 07/14/18 at 09:00 Multivit/Ca Carb/ B Cmplx/FA/Prenat (Shyann-Raj) 1 tab DAILY PO Last administered on 07/17/18at 08:34; Admin Dose 1 TAB; Start 07/14/18 at 09:00 Pantoprazole Sodium (Protonix) 20 mg DAILY@0600 PO Last administered on 07/17/18at 06:56; Admin Dose 20 MG; Start 07/14/18 at 06:00 Tramadol HCl (Ultram) 50 mg TID PRN PO PAIN LEVEL 6-10 Last administered on 07/16/18at 17:39; Admin Dose 50 MG; Start 07/13/18 at 23:30 Acetaminophen (Tylenol Tab) 650 mg Q6H PRN PO MILD PAIN(1-3)OR ELEVATED TEMP; Start 07/13/18 at 23:30 Clonidine (Catapres) 0.1 mg Q6H PRN PO sbp over 170; Start 07/13/18 at 23:30 Hydralazine HCl (Apresoline) 20 mg Q6H PRN IV sbp over 170 Last administered on 07/14/18at 11:56; Admin Dose 20 MG; Start 07/13/18 at 23:30 Insulin Aspart (Novolog Insulin Pen) 3 unit WITH MEALS SC Last administered on 07/17/18at 11:52; Admin Dose 3 UNIT; Start 07/14/18 at 08:00 Miscellaneous Information 1 ea NOTE XX ; Start 07/13/18 at 23:30 Glucose (Glutose) 15 gm Q15M PRN PO DECREASED GLUCOSE; Start 07/13/18 at 23:30 Glucose (Glutose) 22.5 gm Q15M PRN PO DECREASED GLUCOSE; Start 07/13/18 at 23:30 Dextrose (D50w Syringe) 25 ml Q15M PRN IV DECREASED GLUCOSE; Start 07/13/18 at 23:30 Dextrose (D50w Syringe) 50 ml Q15M PRN IV DECREASED GLUCOSE; Start 07/13/18 at 23:30 Glucagon (Glucagen) 1 mg Q15M PRN IM DECREASED GLUCOSE; Start 07/13/18 at 23:30 Glucose (Glutose) 15 gm Q15M PRN BUCCAL DECREASED GLUCOSE; Start 07/13/18 at 23:30 Ondansetron HCl (Zofran Inj) 4 mg Q4H PRN IV NAUSEA AND/OR VOMITING Last administered on 07/16/18 11:09; Admin Dose 4 MG; Start 07/14/18 at 00:30 Miscellaneous Information (Pending [facility] Order For Wound Care) This patient easley... PRN PRN XX WOUND CARE; Start 07/14/18 at 04:30 Hydromorphone HCl (Dilaudid) 1 mg Q4H PRN IV SEVERE PAIN LEVEL 7-10 Last administered on 07/16/18 21:26; Admin Dose 1 MG; Start 07/14/18 at 14:15 Clonidine (Catapres) 0.2 mg TID PO Last administered on 07/17/18 08:38; Admin Dose 0.2 MG; Start 07/14/18 at 15:00; Status Hold Losartan Potassium (Cozaar) 25 mg BID PO Last administered on 07/17/18 08:37; Admin Dose 25 MG; Start 07/14/18 at 21:00 Heparin Sodium (Porcine) (Heparin (5000 Units/1ml)) 5,000 unit BID SC Last administered on 07/17/18 08:45; Admin Dose 5,000 UNIT; Start 07/15/18 at 09:00 Aspirin (Ecotrin) 325 mg DAILY PO Last administered on 07/17/18 08:34; Admin Dose 325 MG; Start 07/16/18 at 09:00 Carvedilol (Coreg) 6.25 mg BID PO Last administered on 07/17/18 08:37; Admin Dose 6.25 MG; Start 07/15/18 at 21:00; Status Hold Metoprolol Tartrate (Lopressor) 5 mg Q4H PRN IV HR>110 Hold SBP<100; Start 07/15/18 at 11:30 Heparin Sodium (Porcine) (Heparin (1000 Units/ml)) 4,000 unit AFTER DIALYSIS CATHETER Last administered on 07/16/18 21:38; Admin Dose 3,400 UNIT; Start 07/15/18 at 17:00 Acetaminophen/ Hydrocodone Bitart ([place] (5/325)) 1 tab Q3H PRN PO MODERATE PAIN LEVEL 4-6 Last administered on 07/17/18 06:56; Admin Dose 1 TAB; Start 07/16/18 at 11:30 Mupirocin (Bactroban) 1 applic BID TOP Last administered on 07/17/18at 08:38; Admin Dose 1 APPLIC; Start 07/16/18 at 21:00; Stop 07/23/18 at 09:01 Hydralazine HCl (Apresoline) 25 mg TID PO ; Start 07/17/18 at 13:00; Status UNADAM WALKER MD Jul 17, 2018 12:04
--- NOTE | 2018-07-17 14:53 | CONS ---
Assessment/Plan Assessment/Plan Hospital Course (Demo Recall) IMP: 1. Preoperative for LE ORIF-NL EF by echo with mod-sev TR 2.Positive troponin 3.BRadycardia to 40's/stable BP. S Misael 4.HTN-currently borderline hypotension 5.ankle fracture 6.ESRD on HD 7. TR-mod-sev Recc -check FRee T4 -trend cardiac enzymes -Continue losartan/imdur/hydralazine as tolerated -coreg held due to bradycardia -wean clonidine off as possible as possible contributer to bradycardia -AM lexiscan to assess significance of positive troponins. Consultation Date/Type/Reason Admit Date/Time Jul 13, 2018 at 21:32 Initial Consult Date 07/16/18 Type of Consult Cardiology Reason for Consultation Bradycardia Date/Time of Note DATE: 07/17/18 TIME: 14:45 Exam/Review of Systems Vital Signs Vitals Vital Signs Date Temp Pulse Resp B/P (MAP) Pulse Ox O2 O2 Flow FiO2 Time Delivery Rate 07/17/18 53 12:21 07/17/18 97.8 17 118/51 100 11:58 (73) 07/16/18 Room Air 21:22 Intake and Output 07/16/18 07/16/18 07/17/18 1515:00 23:00 07:00 IntakeIntake Total 350 ml 200 ml OutputOutput Total 1400 ml BalanceBalance -1050 ml 200 ml Exam Exam Review of Systems: CONSTITUTIONAL: No fevers, chills. PULMONARY: No sob CARDIOVASCULAR: No chest pain/palpitations GASTROINTESTINAL: No nausea/vomiting. GENITOURINARY: No hematuria/dysuria. MUSCULOSKELETAL: No myagias/arthalgias. PSYCHIATRIC: The patient denies depression. NEUROLOGIC: No weakness Constitutional: alert Psych: no complaints Head: normocephalic ENMT: mucosa pink and moist Neck: supple, jvd (9 cm water) Respiratory: diminished breath sounds Cardiovascular: other (bradycardia, RR) Gastrointestinal: soft, non-tender Musculoskeletal: muscle weakness (generalized) Extremities: edema Labs Result Diagram: 07/15/18 0456 07/17/18 0521 Results 24hrs Laboratory Tests Test 07/16/18 16:50 07/17/18 05:21 07/17/18 07:38 07/17/18 11:48 Bedside Glucose 115 98 140 Sodium Level 137 Potassium Level 4.3 Chloride Level 105 Carbon Dioxide Level 28 Anion Gap 4 L Blood Urea Nitrogen 11 # Creatinine 2.22 #H Est Glomerular Filtrat Rate mL/min Glucose Level 92 Calcium Level 8.2 L Phosphorus Level 3.4 Magnesium Level 1.9 Medications Medications Current Medications Atorvastatin Calcium (Lipitor) 40 mg QHS PO Last administered on 07/16/18 21:24; Admin Dose 40 MG; Start 07/14/18 at 21:00 Isosorbide Mononitrate (Imdur) 60 mg DAILY PO Last administered on 07/17/18 08:37; Admin Dose 60 MG; Start 07/14/18 at 09:00 Multivit/Ca Carb/ B Cmplx/FA/Prenat (Shyann-Raj) 1 tab DAILY PO Last administered on 07/17/18 08:34; Admin Dose 1 TAB; Start 07/14/18 at 09:00 Pantoprazole Sodium (Protonix) 20 mg DAILY@0600 PO Last administered on 07/17/18 06:56; Admin Dose 20 MG; Start 07/14/18 at 06:00 Tramadol HCl (Ultram) 50 mg TID PRN PO PAIN LEVEL 6-10 Last administered on 07/16/18 17:39; Admin Dose 50 MG; Start 07/13/18 at 23:30 Acetaminophen (Tylenol Tab) 650 mg Q6H PRN PO MILD PAIN(1-3)OR ELEVATED TEMP; Start 07/13/18 at 23:30 Clonidine (Catapres) 0.1 mg Q6H PRN PO sbp over 170; Start 07/13/18 at 23:30 Hydralazine HCl (Apresoline) 20 mg Q6H PRN IV sbp over 170 Last administered on 07/14/18 11:56; Admin Dose 20 MG; Start 07/13/18 at 23:30 Insulin Aspart (Novolog Insulin Pen) 3 unit WITH MEALS SC Last administered on 07/17/18 11:52; Admin Dose 3 UNIT; Start 07/14/18 at 08:00 Miscellaneous Information 1 ea NOTE XX ; Start 07/13/18 at 23:30 Glucose (Glutose) 15 gm Q15M PRN PO DECREASED GLUCOSE; Start 07/13/18 at 23:30 Glucose (Glutose) 22.5 gm Q15M PRN PO DECREASED GLUCOSE; Start 07/13/18 at 23:30 Dextrose (D50w Syringe) 25 ml Q15M PRN IV DECREASED GLUCOSE; Start 07/13/18 at 23:30 Dextrose (D50w Syringe) 50 ml Q15M PRN IV DECREASED GLUCOSE; Start 07/13/18 at 23:30 Glucagon (Glucagen) 1 mg Q15M PRN IM DECREASED GLUCOSE; Start 07/13/18 at 23:30 Glucose (Glutose) 15 gm Q15M PRN BUCCAL DECREASED GLUCOSE; Start 07/13/18 at 23:30 Ondansetron HCl (Zofran Inj) 4 mg Q4H PRN IV NAUSEA AND/OR VOMITING Last administered on 07/16/18 11:09; Admin Dose 4 MG; Start 07/14/18 at 00:30 Miscellaneous Information ([facility] This patient easley... PRN PRN XX WOUND CARE; Start 07/14/18 at 04:30 Hydromorphone HCl (Dilaudid) 1 mg Q4H PRN IV SEVERE PAIN LEVEL 7-10 Last administered on 07/16/18 21:26; Admin Dose 1 MG; Start 07/14/18 at 14:15 Losartan Potassium (Cozaar) 25 mg BID PO Last administered on 07/17/18 08:37; Admin Dose 25 MG; Start 07/14/18 at 21:00 Heparin Sodium (Porcine) (Heparin (5000 Units/1ml)) 5,000 unit BID SC Last administered on 07/17/18 08:45; Admin Dose 5,000 UNIT; Start 07/15/18 at 09:00 Aspirin (Ecotrin) 325 mg DAILY PO Last administered on 07/17/18 08:34; Admin Dose 325 MG; Start 07/16/18 at 09:00 Carvedilol (Coreg) 6.25 mg BID PO Last administered on 07/17/18 08:37; Admin Dose 6.25 MG; Start 07/15/18 at 21:00; Status Hold Metoprolol Tartrate (Lopressor) 5 mg Q4H PRN IV HR>110 Hold SBP<100; Start 07/15/18 at 11:30 Acetaminophen/ Hydrocodone Bitart ([place] (5/325)) 1 tab Q3H PRN PO MODERATE PAIN LEVEL 4-6 Last administered on 2/6/19at 12:45; Admin Dose 1 TAB; Start 07/16/18 at 11:30 Mupirocin (Bactroban) 1 applic BID TOP Last administered on 07/17/18at 08:38; Admin Dose 1 APPLIC; Start 07/16/18 at 21:00; Stop 07/23/18 at 09:01 Hydralazine HCl (Apresoline) 25 mg TID PO ; Start 07/17/18 at 13:00 Clonidine (Catapres) 0.1 mg BID PO ; Start 07/17/18 at 21:00 Heparin Sodium (Porcine) (Heparin (1000 Units/ml)) 4,000 unit AFTER DIALYSIS CATHETER ; Start 07/17/18 at 12:30 JUSTICE HARRISON Jul 17, 2018 14:53
[2018-07-17] MEDS: HYDROmorphONE 0.5 MG/0.5 ML SYG IV PRN (15:09)
[2018-07-17] MEDS: ATORVASTATIN 40 MG TAB PO SCH (21:16)
[2018-07-18] VITALS (27 sets, daily range): BP systolic 113–198; BP diastolic 47–79; PULSE 46–88; RESP 17–19
[2018-07-18] MEDS ORDERED: DEXTROSE 5%-0.45% NACL 1,000 ML IV SCH (00:05)
[2018-07-18] MEDS ORDERED: ACCU-CHEK XX SCH (02:00)
[2018-07-18] MEDS: traMADol 50 MG TAB PO PRN (02:17)
[2018-07-18] MEDS: INSULIN ASPART [NOVOLOG] 3 ML PEN SC SCH ×6 (05:00→18:21)
[2018-07-18] MEDS: PANTOPRAZOLE SODIUM 20 MG TABEC PO SCH ×2 (06:00→06:55)
[2018-07-18] MEDS: HYDROCODONE/APAP (5/325) TAB PO PRN ×3 (06:55→21:00)
[2018-07-18] MEDS: MUPIROCIN 2% 22 GM OINT TOP SCH ×2 (08:48→20:51)
[2018-07-18] MEDS: BALSAM PERU/CASTOR OIL 60 GM TUBE TOP SCH ×2 (08:48→20:51)
[2018-07-18] MEDS: HEPARIN 5,000 UNIT/1 ML VIAL SC SCH ×2 (08:58→20:50)
[2018-07-18] MEDS: ASPIRIN (EC) 325 MG TAB PO SCH (08:59)
[2018-07-18] MEDS: LOSARTAN 25 MG TAB PO SCH ×2 (08:59→20:50)
[2018-07-18] MEDS: ISOSORBIDE MONONITRATE(SR)30 MG TAB PO SCH (09:00)
[2018-07-18] MEDS: MULTIVIT/CA CARB/B CMPLX/FA TAB PO SCH (09:00)
--- NOTE | 2018-07-18 10:33 | PN ---
Date/Time of Note Date/Time of Note DATE: 07/18/18 TIME: 10:33 Assessment/Plan VTE Prophylaxis Risk score (from Ns)>0 risk: 14 SCD applied (from Ns): No SCD contraindicated: low risk/ambulating Pharmacological prophylaxis: NA/contraindicated Pharm contraindication: low risk/ambulating Lines/Catheters IV [facility] (from [facility] Saline Lock Urinary Cath still in place: No Assessment/Plan Hospital Course 78 y/o with IMPRESSION: 1. Hyperkalemia due to missed hemodialysis.due to fall 2 Acute comminuted fractures of the distal tibia and fibula that involve the distal tibiofibular joint. Distal tibia fracture extends to within 0.3 cm of the tibial plafond but does not involve the articular surface. The appearance is in keeping with an extra-articular Pilon fracture. 2. Hyponatremia. resolved 3. Metabolic acidosis. 4. Cardiomegaly and pulmonary edema. 5. Aortic atherosclerosis. 6. History of congestive heart failure. 7. History of diabetic retinopathy, nephropathy. 8. Hypoalbuminemia. 9. The patient has right lower extremity brace.with fracture 10. Left stump bruise 11 ? AFIB. 12 Congestive heart failure by x-ray, question systolic versus diastolic, likely acute on chronic given presentation. 13 elevated troponin in the setting of end-stage kidney disease Plan -Patient has elevated troponin echo reviewed spoke to Dr. Boston, she will need possible manipulative reduction under anesthesia and under fluoroscopic monitoring followed by immobilization in a short leg cast, pt needs cardiac clearence, stress test today - titrate down clonidine - hd today - Pain control, dilaudid/ -hd TTS, - Monitor for afib - CW /losartan/imdur - Pain control -GI/DVT prophylaxis Result Diagram: 07/18/1852607/18/18526 Results 24hrs Laboratory Tests Test 07/17/18 11:48 07/17/18 17:02 07/18/18 02:10 07/18/18 05:27 Bedside Glucose 140 129 80 White Blood Count 5.5 # Red Blood Count 2.79 L Hemoglobin 9.0 L Hematocrit 27.8 L Mean Corpuscular Volume 99.6 Mean Corpuscular 32.3 Hemoglobin Mean Corpuscular 32.4 Hemoglobin Concent Red Cell Distribution 16.0 H Width Platelet Count 207 # Mean Platelet Volume 10.1 Immature Granulocytes % 0.400 Neutrophils % 68.9 Lymphocytes % 17.8 Monocytes % 10.0 Eosinophils % 2.5 Basophils % 0.4 Nucleated Red Blood 0.0 Cells % Immature Granulocytes # 0.020 Neutrophils # 3.8 Lymphocytes # 1.0 Monocytes # 0.6 Eosinophils # 0.1 Basophils # 0.0 Nucleated Red Blood 0.0 Cells # Sodium Level 135 Potassium Level 4.3 Chloride Level 102 Carbon Dioxide Level 26 Anion Gap 7 Blood Urea Nitrogen 20 Creatinine 3.07 H Est Glomerular Filtrat Rate mL/min Glucose Level 103 Calcium Level 8.0 L Phosphorus Level 4.2 Magnesium Level 1.8 Test 07/18/18 05:31 07/18/18 08:46 Bedside Glucose 99 113 Subjective 24 Hr Interval Summary Free Text/Dictation stress test scheduled today pain is better Exam/Review of Systems Exam Vitals Vital Signs Date Temp Pulse Resp B/P (MAP) Pulse Ox O2 O2 Flow FiO2 Time Delivery Rate 07/18/18 53 08:29 07/18/18 97.8 18 167/70 100 07:11 (102) 07/16/18 Room Air 21:22 Intake and Output 07/17/18 07/17/18 07/18/18 1515:00 23:00 07:00 IntakeIntake Total 450 ml 300 ml BalanceBalance 450 ml 300 ml Exam Exam HEENT: Head is atraumatic, normocephalic. Pupils: Left eye is cloudy NECK: Supple. No JVD. LUNGS: Clear HEART: The patient has a systolic murmur noted, III/. Component of diastolic murmur also noted at the apex and left sternal border. ABDOMEN: Soft. Bowel sounds are present. No palpable mass or hepatosplenomegaly. Bowel sounds are heard. No palpable. EXTREMITIES: No cyanosis, clubbing. The patient has right lower extremity brace noted. Left stump has bruise. Range of motion is restricted because of the pain. Results Results 24hrs Laboratory Tests Test 07/17/18 11:48 07/17/18 17:02 07/18/18 02:10 07/18/18 05:27 Bedside Glucose 140 129 80 White Blood Count 5.5 # Red Blood Count 2.79 L Hemoglobin 9.0 L Hematocrit 27.8 L Mean Corpuscular Volume 99.6 Mean Corpuscular 32.3 Hemoglobin Mean Corpuscular 32.4 Hemoglobin Concent Red Cell Distribution 16.0 H Width Platelet Count 207 # Mean Platelet Volume 10.1 Immature Granulocytes % 0.400 Neutrophils % 68.9 Lymphocytes % 17.8 Monocytes % 10.0 Eosinophils % 2.5 Basophils % 0.4 Nucleated Red Blood 0.0 Cells % Immature Granulocytes # 0.020 Neutrophils # 3.8 Lymphocytes # 1.0 Monocytes # 0.6 Eosinophils # 0.1 Basophils # 0.0 Nucleated Red Blood 0.0 Cells # Sodium Level 135 Potassium Level 4.3 Chloride Level 102 Carbon Dioxide Level 26 Anion Gap 7 Blood Urea Nitrogen 20 Creatinine 3.07 H Est Glomerular Filtrat Rate mL/min Glucose Level 103 Calcium Level 8.0 L Phosphorus Level 4.2 Magnesium Level 1.8 Test 07/18/18 05:31 07/18/18 08:46 Bedside Glucose 99 113 Medications Medication Current Medications Atorvastatin Calcium (Lipitor) 40 mg QHS PO Last administered on 07/17/18at 21:16; Admin Dose 40 MG; Start 07/14/18 at 21:00 Multivit/Ca Carb/ B Cmplx/FA/Prenat (Shyann-Raj) 1 tab DAILY PO Last administered on 07/17/18at 08:34; Admin Dose 1 TAB; Start 07/14/18 at 09:00 Pantoprazole Sodium (Protonix) 20 mg DAILY@0600 PO Last administered on 07/17/18at 06:56; Admin Dose 20 MG; Start 07/14/18 at 06:00 Tramadol HCl (Ultram) 50 mg TID PRN PO PAIN LEVEL 6-10 Last administered on 07/18/18at 02:17; Admin Dose 50 MG; Start 07/13/18 at 23:30 Acetaminophen (Tylenol Tab) 650 mg Q6H PRN PO MILD PAIN(1-3)OR ELEVATED TEMP; Start 07/13/18 at 23:30 Clonidine (Catapres) 0.1 mg Q6H PRN PO sbp over 170; Start 07/13/18 at 23:30 Hydralazine HCl (Apresoline) 20 mg Q6H PRN IV sbp over 170 Last administered on 07/14/18at 11:56; Admin Dose 20 MG; Start 07/13/18 at 23:30 Insulin Aspart (Novolog Insulin Pen) 3 unit WITH MEALS SC Last administered on 07/17/18 17:07; Admin Dose 3 UNIT; Start 07/14/18 at 08:00 Miscellaneous Information 1 ea NOTE XX ; Start 07/13/18 at 23:30 Glucose (Glutose) 15 gm Q15M PRN PO DECREASED GLUCOSE; Start 07/13/18 at 23:30 Glucose (Glutose) 22.5 gm Q15M PRN PO DECREASED GLUCOSE; Start 07/13/18 at 23:30 Dextrose (D50w Syringe) 25 ml Q15M PRN IV DECREASED GLUCOSE; Start 07/13/18 at 23:30 Dextrose (D50w Syringe) 50 ml Q15M PRN IV DECREASED GLUCOSE; Start 07/13/18 at 23:30 Glucagon (Glucagen) 1 mg Q15M PRN IM DECREASED GLUCOSE; Start 07/13/18 at 23:30 Glucose (Glutose) 15 gm Q15M PRN BUCCAL DECREASED GLUCOSE; Start 07/13/18 at 23:30 Ondansetron HCl (Zofran Inj) 4 mg Q4H PRN IV NAUSEA AND/OR VOMITING Last administered on 07/16/18 11:09; Admin Dose 4 MG; Start 07/14/18 at 00:30 Miscellaneous Information (Pending [facility] Order For Wound Care) This patient easley... PRN PRN XX WOUND CARE; Start 07/14/18 at 04:30 Hydromorphone HCl (Dilaudid) 1 mg Q4H PRN IV SEVERE PAIN LEVEL 7-10 Last administered on 07/17/18 15:09; Admin Dose 1 MG; Start 07/14/18 at 14:15 Losartan Potassium (Cozaar) 25 mg BID PO Last administered on 07/17/18 21:18; Admin Dose 25 MG; Start 07/14/18 at 21:00 Heparin Sodium (Porcine) (Heparin (5000 Units/1ml)) 5,000 unit BID SC Last administered on 07/18/18 08:58; Admin Dose 5,000 UNIT; Start 07/15/18 at 09:00 Aspirin (Ecotrin) 325 mg DAILY PO Last administered on 07/17/18 08:34; Admin Dose 325 MG; Start 07/16/18 at 09:00 Carvedilol (Coreg) 6.25 mg BID PO Last administered on 2/6/19at 08:37; Admin Dose 6.25 MG; Start 07/15/18 at 21:00; Status Hold Metoprolol Tartrate (Lopressor) 5 mg Q4H PRN IV HR>110 Hold SBP<100; Start 07/15/18 at 11:30 Acetaminophen/ Hydrocodone Bitart ([place] (5/325)) 1 tab Q3H PRN PO MODERATE PAIN LEVEL 4-6 Last administered on 07/17/18at 21:18; Admin Dose 1 TAB; Start 07/16/18 at 11:30 Mupirocin (Bactroban) 1 applic BID TOP Last administered on 07/18/18at 08:48; Admin Dose 1 APPLIC; Start 07/16/18 at 21:00; Stop 07/23/18 at 09:01 Hydralazine HCl (Apresoline) 25 mg TID PO Last administered on 07/17/18at 21:17; Admin Dose 25 MG; Start 07/17/18 at 13:00 Clonidine (Catapres) 0.1 mg BID PO ; Start 07/17/18 at 21:00 Heparin Sodium (Porcine) (Heparin (1000 Units/ml)) 4,000 unit AFTER DIALYSIS CATHETER ; Start 07/17/18 at 12:30 Isosorbide Mononitrate (Imdur) 30 mg DAILY PO ; Start 07/18/18 at 09:00 Dextrose/Sodium Chloride 1,000 ml @ 40 mls/hr Q24H IV Last administered on 07/18/18at 00:49; Admin Dose 40 MLS/HR; Start 07/18/18 at 00:05 Insulin Aspart (Novolog Insulin Pen) NOVOLOG *MILD* ALGORI... Q4 SC ; Start 07/18/18 at 05:00 ADAM DUARTE MD Jul 18, 2018 10:33
[2018-07-18] MEDS: HYDROmorphONE 0.5 MG/0.5 ML SYG IV PRN ×2 (11:25→18:45)
[2018-07-18] MEDS ORDERED: REGADENOSON 0.4 MG/5 ML SYG ONE (12:29)
--- NOTE | 2018-07-18 12:40 | CONS ---
Assessment/Plan Assessment/Plan Hospital Course (Demo Recall) IMP: 1. Preoperative for LE ORIF-NL EF by echo with mod-sev TR 2.Positive troponin 3.BRadycardia to 40's/stable BP. S Misael 4.HTN-currently borderline hypotension 5.ankle fracture 6.ESRD on HD 7. TR-mod-sev 8. ? sick euthyroid-elevated TSH and Free t4 Recc -trend cardiac enzymes -Continue losartan/imdur/hydralazine as tolerated -coreg held due to bradycardia -wean clonidine off as possible as possible contributer to bradycardia -Lexiscan to assess significance of positive troponins today Consultation Date/Type/Reason Admit Date/Time Jul 13, 2018 at 21:32 Initial Consult Date 07/16/18 Type of Consult Cardiology Reason for Consultation preop/positive troponin Requesting Provider: ADAM DUARTE MD Date/Time of Note DATE: 07/18/18 TIME: 12:37 Exam/Review of Systems Vital Signs Vitals Vital Signs Date Temp Pulse Resp B/P (MAP) Pulse Ox O2 O2 Flow FiO2 Time Delivery Rate 07/18/18 98.1 61 18 198/79 100 11:05 (118) 07/16/18 Room Air 21:22 Intake and Output 07/17/18 07/17/18 07/18/18 1515:00 23:00 07:00 IntakeIntake Total 450 ml 300 ml BalanceBalance 450 ml 300 ml Exam Exam Review of Systems: CONSTITUTIONAL: No fevers, chills. PULMONARY: No sob CARDIOVASCULAR: No chest pain/palpitations GASTROINTESTINAL: No nausea/vomiting. GENITOURINARY: No hematuria/dysuria. MUSCULOSKELETAL: No myagias/arthalgias. PSYCHIATRIC: The patient denies depression. NEUROLOGIC: No weakness Constitutional: alert Psych: no complaints Head: normocephalic ENMT: mucosa pink and moist Neck: supple, jvd (9 cm water) Respiratory: clear to auscultation Cardiovascular: regular rate and rhythm Gastrointestinal: soft, non-tender Musculoskeletal: muscle tone (normal) Extremities: edema (none) Neurological: other (No focal deficits) Labs Result Diagram: 07/18/1827 07/18/1827 Results 24hrs Laboratory Tests Test 07/17/18 17:02 07/18/18 02:10 07/18/18 05:27 07/18/18 05:31 Bedside Glucose 129 80 99 White Blood Count 5.5 # Red Blood Count 2.79 L Hemoglobin 9.0 L Hematocrit 27.8 L Mean Corpuscular Volume 99.6 Mean Corpuscular 32.3 Hemoglobin Mean Corpuscular 32.4 Hemoglobin Concent Red Cell Distribution 16.0 H Width Platelet Count 207 # Mean Platelet Volume 10.1 Immature Granulocytes % 0.400 Neutrophils % 68.9 Lymphocytes % 17.8 Monocytes % 10.0 Eosinophils % 2.5 Basophils % 0.4 Nucleated Red Blood 0.0 Cells % Immature Granulocytes # 0.020 Neutrophils # 3.8 Lymphocytes # 1.0 Monocytes # 0.6 Eosinophils # 0.1 Basophils # 0.0 Nucleated Red Blood 0.0 Cells # Sodium Level 135 Potassium Level 4.3 Chloride Level 102 Carbon Dioxide Level 26 Anion Gap 7 Blood Urea Nitrogen 20 Creatinine 3.07 H Est Glomerular Filtrat Rate mL/min Glucose Level 103 Calcium Level 8.0 L Phosphorus Level 4.2 Magnesium Level 1.8 Test 07/18/18 08:46 Bedside Glucose 113 Medications Medications Current Medications Atorvastatin Calcium (Lipitor) 40 mg QHS PO Last administered on 07/17/18at 21:16; Admin Dose 40 MG; Start 07/14/18 at 21:00 Multivit/Ca Carb/ B Cmplx/FA/Prenat (Shyann-Raj) 1 tab DAILY PO Last ad ministered on 07/17/18at 08:34; Admin Dose 1 TAB; Start 07/14/18 at 09:00 Pantoprazole Sodium (Protonix) 20 mg DAILY@0600 PO Last administered on 07/17/18at 06:56; Admin Dose 20 MG; Start 07/14/18 at 06:00 Tramadol HCl (Ultram) 50 mg TID PRN PO PAIN LEVEL 6-10 Last administered on 07/18/18at 02:17; Admin Dose 50 MG; Start 07/13/18 at 23:30 Acetaminophen (Tylenol Tab) 650 mg Q6H PRN PO MILD PAIN(1-3)OR ELEVATED TEMP; Start 07/13/18 at 23:30 Clonidine (Catapres) 0.1 mg Q6H PRN PO sbp over 170; Start 07/13/18 at 23:30 Hydralazine HCl (Apresoline) 20 mg Q6H PRN IV sbp over 170 Last administered on 07/14/18 11:56; Admin Dose 20 MG; Start 07/13/18 at 23:30 Insulin Aspart (Novolog Insulin Pen) 3 unit WITH MEALS SC Last administered on 07/17/18 17:07; Admin Dose 3 UNIT; Start 07/14/18 at 08:00 Miscellaneous Information 1 ea NOTE XX ; Start 07/13/18 at 23:30 Glucose (Glutose) 15 gm Q15M PRN PO DECREASED GLUCOSE; Start 07/13/18 at 23:30 Glucose (Glutose) 22.5 gm Q15M PRN PO DECREASED GLUCOSE; Start 07/13/18 at 23:30 Dextrose (D50w Syringe) 25 ml Q15M PRN IV DECREASED GLUCOSE; Start 07/13/18 at 23:30 Dextrose (D50w Syringe) 50 ml Q15M PRN IV DECREASED GLUCOSE; Start 07/13/18 at 23:30 Glucagon (Glucagen) 1 mg Q15M PRN IM DECREASED GLUCOSE; Start 07/13/18 at 23:30 Glucose (Glutose) 15 gm Q15M PRN BUCCAL DECREASED GLUCOSE; Start 07/13/18 at 23:30 Ondansetron HCl (Zofran Inj) 4 mg Q4H PRN IV NAUSEA AND/OR VOMITING Last administered on 07/16/18 11:09; Admin Dose 4 MG; Start 07/14/18 at 00:30 Miscellaneous Information (Pending [facility] Order For Wound Care) This patient easley... PRN PRN XX WOUND CARE; Start 07/14/18 at 04:30 Hydromorphone HCl (Dilaudid) 1 mg Q4H PRN IV SEVERE PAIN LEVEL 7-10 Last ad ministered on 07/18/18 11:25; Admin Dose 1 MG; Start 07/14/18 at 14:15 Losartan Potassium (Cozaar) 25 mg BID PO Last administered on 07/17/18 21:18; Admin Dose 25 MG; Start 07/14/18 at 21:00 Heparin Sodium (Porcine) (Heparin (5000 Units/1ml)) 5,000 unit BID SC Last administered on 07/18/18 08:58; Admin Dose 5,000 UNIT; Start 07/15/18 at 09:00 Aspirin (Ecotrin) 325 mg DAILY PO Last administered on 07/17/18 08:34; Admin Dose 325 MG; Start 07/16/18 at 09:00 Carvedilol (Coreg) 6.25 mg BID PO Last administered on 07/17/18 08:37; Admin Dose 6.25 MG; Start 07/15/18 at 21:00; Status Hold Metoprolol Tartrate (Lopressor) 5 mg Q4H PRN IV HR>110 Hold SBP<100; Start 07/15/18 at 11:30 Acetaminophen/ Hydrocodone Bitart ([place] (5/325)) 1 tab Q3H PRN PO MODERATE PAIN LEVEL 4-6 Last administered on 07/17/18 21:18; Admin Dose 1 TAB; Start 07/16/18 at 11:30 Mupirocin (Bactroban) 1 applic BID TOP Last administered on 07/18/18 08:48; Admin Dose 1 APPLIC; Start 07/16/18 at 21:00; Stop 07/23/18 at 09:01 Hydralazine HCl (Apresoline) 25 mg TID PO Last administered on 07/17/18 21:17; Admin Dose 25 MG; Start 07/17/18 at 13:00 Clonidine (Catapres) 0.1 mg BID PO ; Start 07/17/18 at 21:00 Heparin Sodium (Porcine) (Heparin (1000 Units/ml)) 4,000 unit AFTER DIALYSIS CATHETER ; Start 07/17/18 at 12:30 Isosorbide Mononitrate (Imdur) 30 mg DAILY PO ; Start 07/18/18 at 09:00 Dextrose/Sodium Chloride 1,000 ml @ 40 mls/hr Q24H IV Last administered on 07/18/18 00:49; Admin Dose 40 MLS/HR; Start 07/18/18 at 00:05 Insulin Aspart (Novolog Insulin Pen) NOVOLOG *MILD* ALGORI... Q4 SC ; Start 07/18/18 at 05:00 JUSTICE HARRISON Jul 18, 2018 12:40
--- NOTE | 2018-07-18 15:17 | CARRPT ---
DATE OF PROCEDURE: 07/18/2018 TYPE OF PROCEDURE: Lexiscan Cardiolite stress test, electrocardiogram portion. BASELINE VITAL SIGNS AND ELECTROCARDIOGRAM: Pulse 60, blood pressure 164/60. Electrocardiogram reve als normal sinus rhythm, rate 77, normal axis, normal intervals, inferior and anterior T-wave inversi on. PROCEDURE IN DETAILS: The patient underwent standard Lexiscan infusion over 10 seconds followed by a radiolabeled tracer. The patient's test was stopped due to completion of protocol. Maximal achieve d blood pressure during the test was 164/60. Maximal heart rate during the test was 87. ELECTROCARDIOGRAM FINDINGS: The patient did not develop any new Lexiscan-induced ST or T-wave change s from baseline abnormalities. No documented PVCs. SYMPTOMS: The patient had slight complaints of chest pain during stress test that resolved in recove ry. IMPRESSION: 1. No Lexiscan-induced ST or T-wave changes from baseline abnormalities diagnostic for ischemia. 2. Complaints of chest pain which resolved in recovery. 3. No documented premature ventricular contractions during stress testing. 4. Report of nuclear images to follow in a separate dictation. Dictated By: JUSTICE MOSLEY/RENETTA Conf#: [id number] DID#: [id number] CC: SCHUYLER DARNELL MD; SAM KRUEGER MD; ADAM DUARTE;*End*
[2018-07-18] MEDS: HEPARIN 1000 UNITS/ML 10 ML INJ CATHETER SCH (20:17)
[2018-07-18] MEDS: ATORVASTATIN 40 MG TAB PO SCH (20:50)
[2018-07-19] VITALS (11 sets, daily range): BP systolic 120–197; BP diastolic 56–78; PULSE 66–91; RESP 17–19
[2018-07-19] MEDS: HYDROmorphONE 0.5 MG/0.5 ML SYG IV PRN ×4 (01:11→21:06)
[2018-07-19] MEDS: ACCU-CHEK XX SCH (02:00)
[2018-07-19] MEDS: PANTOPRAZOLE SODIUM 20 MG TABEC PO SCH (06:00)
[2018-07-19] MEDS: INSULIN ASPART [NOVOLOG] 3 ML PEN SC SCH ×3 (08:53→18:00)
[2018-07-19] MEDS: ISOSORBIDE MONONITRATE(SR)30 MG TAB PO SCH (09:07)
[2018-07-19] MEDS: ASPIRIN (EC) 325 MG TAB PO SCH (09:07)
[2018-07-19] MEDS: LOSARTAN 25 MG TAB PO SCH ×2 (09:08→20:14)
[2018-07-19] MEDS: MULTIVIT/CA CARB/B CMPLX/FA TAB PO SCH (09:08)
[2018-07-19] MEDS: MUPIROCIN 2% 22 GM OINT TOP SCH ×2 (09:09→20:18)
[2018-07-19] MEDS: BALSAM PERU/CASTOR OIL 60 GM TUBE TOP SCH ×2 (09:10→20:20)
[2018-07-19] MEDS: HEPARIN 5,000 UNIT/1 ML VIAL SC SCH ×2 (09:19→21:05)
--- NOTE | 2018-07-19 12:07 | PN ---
Date/Time of Note Date/Time of Note DATE: 07/19/18 TIME: 12:05 Assessment/Plan VTE Prophylaxis Risk score (from Ns)>0 risk: 11 SCD applied (from Ns): No SCD contraindicated: bilateral amputee Pharmacological prophylaxis: NA/contraindicated Pharm contraindication: surgical contra Lines/Catheters IV Catheter Type (from [facility] [place] Urinary Cath still in place: No Assessment/Plan Hospital Course 1. Hyperkalemia due to missed hemodialysis.due to fall 2 Acute comminuted fractures of the distal tibia and fibula that involve the distal tibiofibular joint. Distal tibia fracture extends to within 0.3 cm of the tibial plafond but does not involve the articular surface. The appearance is in keeping with an extra-articular Pilon fracture. 2. Hyponatremia. resolved 3. Metabolic acidosis. 4. Cardiomegaly and pulmonary edema. 5. Aortic atherosclerosis. 6. History of congestive heart failure. 7. History of diabetic retinopathy, nephropathy. 8. Hypoalbuminemia. 9. The patient has right lower extremity brace.with fracture 10. Left stump bruise 11 ? AFIB. 12 Congestive heart failure by x-ray, question systolic versus diastolic, likely acute on chronic given presentation. 13 elevated troponin in the setting of end-stage kidney disease 14. Anemia Assessment/Plan -Patient has elevated troponin, echo reviewed spoke to Dr. [place], she will need possible manipulative reduction under anesthesia and under fluoroscopic monitoring followed by immobilization in a short leg cast, pt needs cardiac clearance, stress test done - titrate down clonidine - HD - Pain control, dilaudid -hd TTS, - Monitor for afib - CW /losartan/imdur - Pain control -GI/DVT prophylaxis Result Diagram: 07/19/18 0539 07/19/18 0539 Results 24hrs Laboratory Tests Test 07/18/18 17:02 07/18/18 20:45 07/19/18 05:39 07/19/18 08:32 Bedside Glucose 111 70 93 White Blood Count 7.9 # Red Blood Count 3.37 #L Hemoglobin 10.7 L Hematocrit 33.4 #L Mean Corpuscular Volume 99.1 Mean Corpuscular 31.8 Hemoglobin Mean Corpuscular 32.0 Hemoglobin Concent Red Cell Distribution 16.2 H Width Platelet Count 283 # Mean Platelet Volume 9.9 Immature Granulocytes % 0.400 Neutrophils % 73.2 Lymphocytes % 14.4 L Monocytes % 10.4 Eosinophils % 1.3 Basophils % 0.3 Nucleated Red Blood 0.0 Cells % Immature Granulocytes # 0.030 Neutrophils # 5.8 Lymphocytes # 1.1 Monocytes # 0.8 Eosinophils # 0.1 Basophils # 0.0 Nucleated Red Blood 0.0 Cells # Sodium Level 137 Potassium Level 4.0 Chloride Level 101 Carbon Dioxide Level 30 Anion Gap 6 Blood Urea Nitrogen 10 # Creatinine 1.88 #H Est Glomerular Filtrat Rate mL/min Glucose Level 93 Calcium Level 8.5 Phosphorus Level 3.3 Magnesium Level 1.9 Subjective 24 Hr Interval Summary Musculoskeletal: bone/joint pain Exam/Review of Systems Exam Vitals Vital Signs Date Temp Pulse Resp B/P (MAP) Pulse Ox O2 O2 Flow FiO2 Time Delivery Rate 07/19/18 98.1 80 18 120/56 98 11:35 (77) 07/18/18 Room Air 20:44 Intake and Output 07/18/18 07/18/18 07/19/18 1414:59 22:59 06:59 IntakeIntake Total 300 ml OutputOutput Total 1400 ml BalanceBalance -1100 ml Exam right Permchest Constitutional: alert, oriented Head: normocephalic Eyes: other (left eye cataract) Respiratory: clear to auscultation Cardiovascular: regular rate and rhythm Gastrointestinal: soft Extremities: other (BKA left) Results Results 24hrs Laboratory Tests Test 07/18/18 17:02 07/18/18 20:45 07/19/18 05:39 07/19/18 08:32 Bedside Glucose 111 70 93 White Blood Count 7.9 # Red Blood Count 3.37 #L Hemoglobin 10.7 L Hematocrit 33.4 #L Mean Corpuscular Volume 99.1 Mean Corpuscular 31.8 Hemoglobin Mean Corpuscular 32.0 Hemoglobin Concent Red Cell Distribution 16.2 H Width Platelet Count 283 # Mean Platelet Volume 9.9 Immature Granulocytes % 0.400 Neutrophils % 73.2 Lymphocytes % 14.4 L Monocytes % 10.4 Eosinophils % 1.3 Basophils % 0.3 Nucleated Red Blood 0.0 Cells % Immature Granulocytes # 0.030 Neutrophils # 5.8 Lymphocytes # 1.1 Monocytes # 0.8 Eosinophils # 0.1 Basophils # 0.0 Nucleated Red Blood 0.0 Cells # Sodium Level 137 Potassium Level 4.0 Chloride Level 101 Carbon Dioxide Level 30 Anion Gap 6 Blood Urea Nitrogen 10 # Creatinine 1.88 #H Est Glomerular Filtrat Rate mL/min Glucose Level 93 Calcium Level 8.5 Phosphorus Level 3.3 Magnesium Level 1.9 Medications Medication Current Medications Atorvastatin Calcium (Lipitor) 40 mg QHS PO Last administered on 07/18/18 20:50; Admin Dose 40 MG; Start 07/14/18 at 21:00 Multivit/Ca Carb/ B Cmplx/FA/Prenat (Shyann-Raj) 1 tab DAILY PO Last administered on 07/19/18 09:08; Admin Dose 1 TAB; Start 07/14/18 at 09:00 Pantoprazole Sodium (Protonix) 20 mg DAILY@0600 PO Last administered on 07/17/18 06:56; Admin Dose 20 MG; Start 07/14/18 at 06:00 Tramadol HCl (Ultram) 50 mg TID PRN PO PAIN LEVEL 6-10 Last administered on 07/18/18 02:17; Admin Dose 50 MG; Start 07/13/18 at 23:30 Acetaminophen (Tylenol Tab) 650 mg Q6H PRN PO MILD PAIN(1-3)OR ELEVATED TEMP; Start 07/13/18 at 23:30 Hydralazine HCl (Apresoline) 20 mg Q6H PRN IV sbp over 170 Last administered on 07/14/18 11:56; Admin Dose 20 MG; Start 07/13/18 at 23:30 Insulin Aspart (Novolog Insulin Pen) 3 unit WITH MEALS SC Last administered on 07/19/18 08:53; Admin Dose 3 UNIT; Start 07/14/18 at 08:00 Miscellaneous Information 1 ea NOTE XX ; Start 07/13/18 at 23:30 Glucose (Glutose) 15 gm Q15M PRN PO DECREASED GLUCOSE; Start 07/13/18 at 23:30 Glucose (Glutose) 22.5 gm Q15M PRN PO DECREASED GLUCOSE; Start 07/13/18 at 23:30 Dextrose (D50w Syringe) 25 ml Q15M PRN IV DECREASED GLUCOSE; Start 07/13/18 at 23:30 Dextrose (D50w Syringe) 50 ml Q15M PRN IV DECREASED GLUCOSE; Start 07/13/18 at 23:30 Glucagon (Glucagen) 1 mg Q15M PRN IM DECREASED GLUCOSE; Start 07/13/18 at 23:30 Glucose (Glutose) 15 gm Q15M PRN BUCCAL DECREASED GLUCOSE; Start 07/13/18 at 23:30 Ondansetron HCl (Zofran Inj) 4 mg Q4H PRN IV NAUSEA AND/OR VOMITING Last administered on 07/16/18 11:09; Admin Dose 4 MG; Start 07/14/18 at 00:30 Miscellaneous Information (Pending [facility] Order For Wound Care) This patient easley... PRN PRN XX WOUND CARE; Start 07/14/18 at 04:30 Hydromorphone HCl (Dilaudid) 1 mg Q4H PRN IV SEVERE PAIN LEVEL 7-10 Last administered on 07/19/18 01:11; Admin Dose 1 MG; Start 07/14/18 at 14:15 Losartan Potassium (Cozaar) 25 mg BID PO Last administered on 07/19/18 09:08; Admin Dose 25 MG; Start 07/14/18 at 21:00 Heparin Sodium (Porcine) (Heparin (5000 Units/1ml)) 5,000 unit BID SC Last administered on 07/19/18 09:19; Admin Dose 5,000 UNIT; Start 07/15/18 at 09:00 Aspirin (Ecotrin) 325 mg DAILY PO Last administered on 07/19/18 09:07; Admin Dose 325 MG; Start 07/16/18 at 09:00 Carvedilol (Coreg) 6.25 mg BID PO Last administered on 07/17/18 08:37; Admin Dose 6.25 MG; Start 07/15/18 at 21:00; Status Hold Acetaminophen/ Hydrocodone Bitart ([place] (5/325)) 1 tab Q3H PRN PO MODERATE PAIN LEVEL 4-6 Last administered on 07/18/18 21:00; Admin Dose 1 TAB; Start 07/16/18 at 11:30 Mupirocin (Bactroban) 1 applic BID TOP Last administered on 07/19/18 09:09; Admin Dose 1 APPLIC; Start 07/16/18 at 21:00; Stop 07/23/18 at 09:01 Hydralazine HCl (Apresoline) 25 mg TID PO Last administered on 07/19/18 09:08; Admin Dose 25 MG; Start 07/17/18 at 13:00 Heparin Sodium (Porcine) (Heparin (1000 Units/ml)) 4,000 unit AFTER DIALYSIS CATHETER Last administered on 07/18/18at 20:17; Admin Dose 3,400 UNIT; Start 07/17/18 at 12:30 Isosorbide Mononitrate (Imdur) 30 mg DAILY PO Last administered on 07/19/18at 09:07; Admin Dose 30 MG; Start 07/18/18 at 09:00 Diagnostic Test (Pha) (Accu-Chek) 1 ea 02 XX ; Start 07/19/18 at 02:00 Clonidine (Catapres) 0.1 mg DAILY PO Last administered on 07/19/18 09:08; Admin Dose 0.1 MG; Start 07/19/18 at 09:00 ANAYELI KEYES Jul 19, 2018 12:07
--- NOTE | 2018-07-19 13:18 | CONS ---
Assessment/Plan Assessment/Plan Hospital Course (Demo Recall) IMP: 1. Preoperative for LE ORIF-NL EF by echo with mod-sev TR. Lexiscan with NL EF and partially reversible inferior wall defect. Thus patient has no cardiac contraindication to proceeding to OR on current medications but at moderate to high risk 2.Positive troponin 3.BRadycardia to 40's/stable BP. S Misael- now improved with decrease in dose of clonidine 4.HTN-currently borderline hypotension 5.ankle fracture 6.ESRD on HD 7. TR-mod-sev 8. ? sick euthyroid-elevated TSH and Free t4 Recc -trend cardiac enzymes -Continue losartan/imdur/hydralazine as tolerated -coreg held due to bradycardia -Clonidine dose reduced with improved HR overall and reasonable BP control Consultation Date/Type/Reason Admit Date/Time Jul 13, 2018 at 21:32 Initial Consult Date 07/16/18 Type of Consult Cardiology Reason for Consultation positive troponin/preop Requesting Provider: ADAM DUARTE MD Date/Time of Note DATE: 07/19/18 TIME: 13:13 Exam/Review of Systems Vital Signs Vitals Vital Signs Date Temp Pulse Resp B/P (MAP) Pulse Ox O2 O2 Flow FiO2 Time Delivery Rate 07/19/18 98.1 80 18 120/56 98 11:35 (77) 07/18/18 Room Air 20:44 Intake and Output 07/18/18 07/18/18 07/19/18 1515:00 23:00 07:00 IntakeIntake Total 300 ml OutputOutput Total 1400 ml BalanceBalance -1100 ml Exam Exam Review of Systems: CONSTITUTIONAL: No fevers, chills. PULMONARY: No sob CARDIOVASCULAR: No chest pain/palpitations GASTROINTESTINAL: No nausea/vomiting. GENITOURINARY: No hematuria/dysuria. MUSCULOSKELETAL: No myagias/arthalgias. PSYCHIATRIC: The patient denies depression. NEUROLOGIC: No weakness Constitutional: alert, oriented Psych: no complaints Head: normocephalic ENMT: mucosa pink and moist Neck: supple, jvd (9 cm water) Respiratory: diminished breath sounds (at bases/B) Cardiovascular: regular rate and rhythm Gastrointestinal: soft, non-tender Musculoskeletal: muscle weakness (mild generalized) Extremities: edema (none) Neurological: other (No focal deficits) Labs Result Diagram: 07/19/1839 07/19/1839 Results 24hrs Laboratory Tests Test 07/18/18 17:02 07/18/18 20:45 07/19/18 05:39 07/19/18 08:32 Bedside Glucose 111 70 93 White Blood Count 7.9 # Red Blood Count 3.37 #L Hemoglobin 10.7 L Hematocrit 33.4 #L Mean Corpuscular Volume 99.1 Mean Corpuscular 31.8 Hemoglobin Mean Corpuscular 32.0 Hemoglobin Concent Red Cell Distribution 16.2 H Width Platelet Count 283 # Mean Platelet Volume 9.9 Immature Granulocytes % 0.400 Neutrophils % 73.2 Lymphocytes % 14.4 L Monocytes % 10.4 Eosinophils % 1.3 Basophils % 0.3 Nucleated Red Blood 0.0 Cells % Immature Granulocytes # 0.030 Neutrophils # 5.8 Lymphocytes # 1.1 Monocytes # 0.8 Eosinophils # 0.1 Basophils # 0.0 Nucleated Red Blood 0.0 Cells # Sodium Level 137 Potassium Level 4.0 Chloride Level 101 Carbon Dioxide Level 30 Anion Gap 6 Blood Urea Nitrogen 10 # Creatinine 1.88 #H Est Glomerular Filtrat Rate mL/min Glucose Level 93 Calcium Level 8.5 Phosphorus Level 3.3 Magnesium Level 1.9 Test 07/19/18 12:13 Bedside Glucose 94 Medications Medications Current Medications Atorvastatin Calcium (Lipitor) 40 mg QHS PO Last administered on 07/18/18at 20:50; Admin Dose 40 MG; Start 07/14/18 at 21:00 Multivit/Ca Carb/ B Cmplx/FA/Prenat (Shyann-Raj) 1 tab DAILY PO Last administered on 07/19/18at 09:08; Admin Dose 1 TAB; Start 07/14/18 at 09:00 Pantoprazole Sodium (Protonix) 20 mg DAILY@0600 PO Last administered on 07/17/18at 06:56; Admin Dose 20 MG; Start 07/14/18 at 06:00 Tramadol HCl (Ultram) 50 mg TID PRN PO PAIN LEVEL 6-10 Last administered on 07/18/18at 02:17; Admin Dose 50 MG; Start 07/13/18 at 23:30 Acetaminophen (Tylenol Tab) 650 mg Q6H PRN PO MILD PAIN(1-3)OR ELEVATED TEMP; Start 07/13/18 at 23:30 Hydralazine HCl (Apresoline) 20 mg Q6H PRN IV sbp over 170 Last administered on 07/14/18 11:56; Admin Dose 20 MG; Start 07/13/18 at 23:30 Insulin Aspart (Novolog Insulin Pen) 3 unit WITH MEALS SC Last administered on 07/19/18 12:18; Admin Dose 3 UNIT; Start 07/14/18 at 08:00 Miscellaneous Information 1 ea NOTE XX ; Start 07/13/18 at 23:30 Glucose (Glutose) 15 gm Q15M PRN PO DECREASED GLUCOSE; Start 07/13/18 at 23:30 Glucose (Glutose) 22.5 gm Q15M PRN PO DECREASED GLUCOSE; Start 07/13/18 at 23:30 Dextrose (D50w Syringe) 25 ml Q15M PRN IV DECREASED GLUCOSE; Start 07/13/18 at 23:30 Dextrose (D50w Syringe) 50 ml Q15M PRN IV DECREASED GLUCOSE; Start 07/13/18 at 23:30 Glucagon (Glucagen) 1 mg Q15M PRN IM DECREASED GLUCOSE; Start 07/13/18 at 23:30 Glucose (Glutose) 15 gm Q15M PRN BUCCAL DECREASED GLUCOSE; Start 07/13/18 at 23: 30 Ondansetron HCl (Zofran Inj) 4 mg Q4H PRN IV NAUSEA AND/OR VOMITING Last administered on 07/16/18 11:09; Admin Dose 4 MG; Start 07/14/18 at 00:30 Miscellaneous Information (Pending [facility] Order For Wound Care) This patient easley... PRN PRN XX WOUND CARE; Start 07/14/18 at 04:30 Hydromorphone HCl (Dilaudid) 1 mg Q4H PRN IV SEVERE PAIN LEVEL 7-10 Last administered on 07/19/18 12:06; Admin Dose 1 MG; Start 07/14/18 at 14:15 Losartan Potassium (Cozaar) 25 mg BID PO Last administered on 07/19/18 09:08; Admin Dose 25 MG; Start 07/14/18 at 21:00 Heparin Sodium (Porcine) (Heparin (5000 Units/1ml)) 5,000 unit BID SC Last administered on 07/19/18 09:19; Admin Dose 5,000 UNIT; Start 07/15/18 at 09:00 Aspirin (Ecotrin) 325 mg DAILY PO Last administered on 07/19/18 09:07; Admin Dose 325 MG; Start 07/16/18 at 09:00 Carvedilol (Coreg) 6.25 mg BID PO Last administered on 07/17/18 08:37; Admin Dose 6.25 MG; Start 07/15/18 at 21:00; Status Hold Acetaminophen/ Hydrocodone Bitart ([place] (5/325)) 1 tab Q3H PRN PO MODERATE PAIN LEVEL 4-6 Last administered on 07/18/18 21:00; Admin Dose 1 TAB; Start 07/16 at 11:30 Mupirocin (Bactroban) 1 applic BID TOP Last administered on 07/19/18 09:09; Admin Dose 1 APPLIC; Start 07/16/18 at 21:00; Stop 07/23/18 at 09:01 Hydralazine HCl (Apresoline) 25 mg TID PO Last administered on 07/19/18 12:06; Admin Dose 25 MG; Start 07/17/18 at 13:00 Heparin Sodium (Porcine) (Heparin (1000 Units/ml)) 4,000 unit AFTER DIALYSIS CATHETER Last administered on 07/18/18 20:17; Admin Dose 3,400 UNIT; Start 07/17/18 at 12:30 Isosorbide Mononitrate (Imdur) 30 mg DAILY PO Last administered on 07/19/18 09:07; Admin Dose 30 MG; Start 07/18/18 at 09:00 Diagnostic Test (Pha) (Accu-Chek) 1 ea 02 XX ; Start 07/19/18 at 02:00 Clonidine (Catapres) 0.1 mg DAILY PO Last administered on 07/19/18 09:08; Admin Dose 0.1 MG; Start 07/19/18 at 09:00 JUSTICE HARRISON Jul 19, 2018 13:18
[2018-07-19] MEDS: ATORVASTATIN 40 MG TAB PO SCH (20:15)
[2018-07-19] MEDS: HYDROCODONE/APAP (5/325) TAB PO PRN (22:47)
[2018-07-19] MEDS: ONDANSETRON 4 MG INJ IV PRN (22:52)
[2018-07-20] VITALS (42 sets, daily range): BP systolic 111–174; BP diastolic 54–85; PULSE 65–113; RESP 16–25
[2018-07-20] MEDS: ACCU-CHEK XX SCH (02:20)
[2018-07-20] MEDS: HYDROmorphONE 0.5 MG/0.5 ML SYG IV PRN ×3 (03:07→20:47)
[2018-07-20] MEDS: HYDROCODONE/APAP (5/325) TAB PO PRN (05:34)
[2018-07-20] MEDS: PANTOPRAZOLE SODIUM 20 MG TABEC PO SCH (06:00)
[2018-07-20] MEDS ORDERED: CLINDAMYCIN 600 MG/50 ML D5W IVPB IVPB ONE (07:00)
[2018-07-20] MEDS: INSULIN ASPART [NOVOLOG] 3 ML PEN SC SCH ×3 (08:00→17:30)
[2018-07-20] MEDS: MULTIVIT/CA CARB/B CMPLX/FA TAB PO SCH (08:01)
[2018-07-20] MEDS: ISOSORBIDE MONONITRATE(SR)30 MG TAB PO SCH (08:01)
[2018-07-20] MEDS: LOSARTAN 25 MG TAB PO SCH ×2 (08:01→20:46)
[2018-07-20] MEDS: ASPIRIN (EC) 325 MG TAB PO SCH (08:01)
--- NOTE | 2018-07-20 09:33 | PREAC ---
Date/Time of Note Date/Time of Note DATE: 07/20/18 TIME: 09:31 Anesthesia Eval and Record Evaluation Time Pre-Procedure Interview DATE: 07/20/18 TIME: 09:31 Age 78 Sex female NPO: 8 hrs Preoperative diagnosis left ankle fracture Planned procedure closed reduction Past Medical History Past Medical History: Includes Cardio: HTN, CAD, CABG, CHF Endo: Diabetes Renal: ESRD on dialysis Surgery & Anesthesia Issues No known issue Meds Anticoagulation: No Beta Kaitlin within 24 hr: Yes Reported Medications Atorvastatin* (Atorvastatin*) 40 Mg Tablet, 40 MG PO QHS, #30 TAB 07/13/18 Carvedilol* (Carvedilol*) 3.125 Mg Tablet, 3.125 MG PO BID, #60 TAB 07/13/18 Tramadol HCl (Tramadol HCl) 50 Mg Tablet, 50 MG PO TID PRN for PAIN LEVEL 6-10, #90 TAB 07/13/18 Multivit/Ca Carb/B Cmplx/Fa* (Shyann-Raj*) 1 Tab Tab, 1 TAB PO DAILY, TAB 07/13/18 Isosorbide Mononitrate* (Isosorbide Mononitrate*) 60 Mg Tab.er.24h, 60 MG PO DAILY, TAB 07/13/18 Pantoprazole* (Protonix*) 20 Mg Tablet.dr, 20 MG PO DAILY, TAB 07/13/18 Clonidine Hcl* (Clonidine Hcl*) 0.1 Mg Tab, 0.1 MG PO BID, TAB 07/13/18 Aspirin (Aspir-Low) 81 Mg Tablet.dr, 81 MG PO DAILY 07/13/18 Current Medications Atorvastatin Calcium (Lipitor) 40 mg QHS PO Last administered on 07/19/18at 20:15; Admin Dose 40 MG; Start 07/14/18 at 21:00 Multivit/Ca Carb/ B Cmplx/FA/Prenat (Shyann-Raj) 1 tab DAILY PO Last admini stered on 07/19/18at 09:08; Admin Dose 1 TAB; Start 07/14/18 at 09:00 Pantoprazole Sodium (Protonix) 20 mg DAILY@0600 PO Last administered on 07/17/18at 06:56; Admin Dose 20 MG; Start 07/14/18 at 06:00 Tramadol HCl (Ultram) 50 mg TID PRN PO PAIN LEVEL 6-10 Last administered on 07/18/18 02:17; Admin Dose 50 MG; Start 07/13/18 at 23:30 Acetaminophen (Tylenol Tab) 650 mg Q6H PRN PO MILD PAIN(1-3)OR ELEVATED TEMP; Start 07/13/18 at 23:30 Hydralazine HCl (Apresoline) 20 mg Q6H PRN IV sbp over 170 Last administered on 07/14/18at 11:56; Admin Dose 20 MG; Start 07/13/18 at 23:30 Insulin Aspart (Novolog Insulin Pen) 3 unit WITH MEALS SC Last administered on 07/19/18 18:00; Admin Dose 3 UNIT; Start 07/14/18 at 08:00 Miscellaneous Information 1 ea NOTE XX ; Start 07/13/18 at 23:30 Glucose (Glutose) 15 gm Q15M PRN PO DECREASED GLUCOSE; Start 07/13/18 at 23:30 Glucose (Glutose) 22.5 gm Q15M PRN PO DECREASED GLUCOSE; Start 07/13/18 at 23:30 Dextrose (D50w Syringe) 25 ml Q15M PRN IV DECREASED GLUCOSE; Start 07/13/18 at 23:30 Dextrose (D50w Syringe) 50 ml Q15M PRN IV DECREASED GLUCOSE; Start 07/13/18 at 23:30 Glucagon (Glucagen) 1 mg Q15M PRN IM DECREASED GLUCOSE; Start 07/13/18 at 23:30 Glucose (Glutose) 15 gm Q15M PRN BUCCAL DECREASED GLUCOSE; Start 07/13/18 at 23:30 Ondansetron HCl (Zofran Inj) 4 mg Q4H PRN IV NAUSEA AND/OR VOMITING Last administered on 07/19/18at 22:52; Admin Dose 4 MG; Start 07/14/18 at 00:30 Miscellaneous Information [facility] This patient easley... PRN PRN XX WOUND CARE; Start 07/14/18 at 04:30 Hydromorphone HCl (Dilaudid) 1 mg Q4H PRN IV SEVERE PAIN LEVEL 7-10 Last administered on 07/20/18 09:22; Admin Dose 1 MG; Start 07/14/18 at 14:15 Losartan Potassium (Cozaar) 25 mg BID PO Last administered on 2/8/19at 20:14; Admin Dose 25 MG; Start 07/14/18 at 21:00 Heparin Sodium (Porcine) (Heparin (5000 Units/1ml)) 5,000 unit BID SC Last administered on 07/19/18 21:05; Admin Dose 5,000 UNIT; Start 07/15/18 at 09:00 Aspirin (Ecotrin) 325 mg DAILY PO Last administered on 07/19/18 09:07; Admin Dose 325 MG; Start 07/16/18 at 09:00 Carvedilol (Coreg) 6.25 mg BID PO Last administered on 07/17/18 08:37; Admin Dose 6.25 MG; Start 07/15/18 at 21:00; Status Hold Acetaminophen/ Hydrocodone Bitart ([place] (5/325)) 1 tab Q3H PRN PO MODERATE PAIN LEVEL 4-6 Last administered on 07/20/18 05:34; Admin Dose 1 TAB; Start 07/16/18 at 11:30 Mupirocin (Bactroban) 1 applic BID TOP Last administered on 07/19/18 20:18; Admin Dose 1 APPLIC; Start 07/16/18 at 21:00; Stop 07/23/18 at 09:01 Hydralazine HCl (Apresoline) 25 mg TID PO Last administered on 07/19/18 20:15; Admin Dose 25 MG; Start 07/17/18 at 13:00 Heparin Sodium (Porcine) (Heparin (1000 Units/ml)) 4,000 unit AFTER DIALYSIS CATHETER Last administered on 07/18/18 20:17; Admin Dose 3,400 UNIT; Start 07/17/18 at 12:30 Isosorbide Mononitrate (Imdur) 30 mg DAILY PO Last administered on 07/19/18 09:07; Admin Dose 30 MG; Start 07/18/18 at 09:00 Diagnostic Test (Pha) (Accu-Chek) 1 ea 02 XX Last administered on 07/20/18 02:20; Admin Dose 1 EA; Start 07/19/18 at 02:00 Clonidine (Catapres) 0.1 mg DAILY PO Last administered on 07/19/18 09:08; Admin Dose 0.1 MG; Start 07/19/18 at 09:00 Meds reviewed: Yes Allergies Coded Allergies: No Known Allergy (Unverified , 07/13/18) Allergies Reviewed: Yes Labs/Studies Labs Reviewed: Reviewed by anesthesiologist Result Diagram: 07/19/18 0539 07/19/18 0539 Blood Bank Test 07/19/18 19:42 Antibody Screen NEGATIVE Blood Product Summary Counts Blood Type AB POSITIVE Crossmatch Red Blood Cells test: N/A Pre-procedure Exam Last vitals Vital Signs Date Temp Pulse Resp B/P (MAP) Pulse Ox O2 O2 Flow FiO2 Time Delivery Rate 07/20/18 84 08:01 07/20/18 97.6 16 164/72 100 Room Air 07:40 (102) Airway: Adequate mouth opening, Adequate thyromental dist Mallampati: Mallampati IV Teeth: Normal Lung: Normal Heart: Normal ASA Physical Status ASA physical status: 4 Emergency: None Pre-operative Attestations Prior to commencing anesthesia and surgery, the patient was re-evaluated, there was verification of: *The patient's identity *The results of appropriate recent lab work and preoperative vital signs *The above evaluation not changing prior to induction *Anesthetic plan, risk benefits, alternative and complications discussed with patient/family; questions answered; patient/family understands, accepts and wishes to proceed. BECCA ANDERSON DO Jul 20, 2018 09:33
[2018-07-20] MEDS ORDERED: FENTAnyl 50 MCG/ML VIAL ONE (09:57)
[2018-07-20] MEDS ORDERED: MIDAZOLAM 1 MG/ML 2 ML INJ ONE (09:57)
[2018-07-20] MEDS ORDERED: ETOMIDATE 20 MG INJ ONE (09:58)
[2018-07-20] MEDS ORDERED: ROPIVACAINE 0.5 % 30 ML VIAL ONE (10:00)
--- NOTE | 2018-07-20 10:32 | HPN ---
Date/Time of Note Date/Time of Note DATE: 07/20/18 TIME: 10:31 Interval H&P Admission Note Pt. seen H&P reviewed: No system changes HOME DARNELL MD Jul 20, 2018 10:32
--- NOTE | 2018-07-20 11:26 | CONS ---
Assessment/Plan Assessment/Plan Hospital Course (Demo Recall) IMP: 1. Preoperative for LE ORIF-NL EF by echo with mod-sev TR. Lexiscan with NL EF and partially reversible inferior wall defect. Thus patient has no cardiac contraindication to proceeding to OR on current medications but at moderate to high risk 2.Positive troponin 3.BRadycardia to 40's/stable BP. S Misael- now improved with decrease in dose of clonidine 4.HTN-currently borderline hypotension 5.ankle fracture 6.ESRD on HD 7. TR-mod-sev 8. ? sick euthyroid-elevated TSH and Free t4 Recc -Continue losartan/imdur/hydralazine as tolerated -coreg held due to bradycardia -Clonidine dose reduced with improved HR overall and reasonable BP control -to OR today Consultation Date/Type/Reason Admit Date/Time Jul 13, 2018 at 21:32 Initial Consult Date 07/16/18 Type of Consult Cardiology Reason for Consultation arrythmia Requesting Provider: ADAM DUARTE MD Date/Time of Note DATE: 07/20/18 TIME: 11:25 Exam/Review of Systems Vital Signs Vitals Vital Signs Date Temp Pulse Resp B/P (MAP) Pulse Ox O2 O2 Flow FiO2 Time Delivery Rate 07/20/18 84 08:01 07/20/18 97.6 16 164/72 100 Room Air 07:40 (102) Intake and Output 07/19/18 07/19/18 07/20/18 1515:00 23:00 07:00 IntakeIntake Total 360 ml 50 ml BalanceBalance 360 ml 50 ml Exam Exam Review of Systems: CONSTITUTIONAL: No fevers, chills. PULMONARY: No sob CARDIOVASCULAR: No chest pain/palpitations GASTROINTESTINAL: No nausea/vomiting. GENITOURINARY: No hematuria/dysuria. MUSCULOSKELETAL: No myagias/arthalgias. PSYCHIATRIC: The patient denies depression. NEUROLOGIC: No weakness Constitutional: alert, oriented Psych: no complaints Head: normocephalic Eyes: nl conjunctiva ENMT: mucosa pink and moist Neck: supple, jvd (9 cm water) Respiratory: clear to auscultation Cardiovascular: regular rate and rhythm Gastrointestinal: soft, non-tender Musculoskeletal: muscle tone Extremities: edema (none) Neurological: other (No focal deficits) Labs Result Diagram: 07/19/1839 07/19/1839 Results 24hrs Laboratory Tests Test 07/19/18 12:13 07/19/18 18:06 07/20/18 02:19 07/20/18 07:58 Bedside Glucose 94 115 85 100 Medications Medications Current Medications Atorvastatin Calcium (Lipitor) 40 mg QHS PO Last administered on 07/19/18at 20:15; Admin Dose 40 MG; Start 07/14/18 at 21:00 Multivit/Ca Carb/ B Cmplx/FA/Prenat (Shyann-Raj) 1 tab DAILY PO Last administered on 07/19/18 09:08; Admin Dose 1 TAB; Start 07/14/18 at 09:00 Pantoprazole Sodium (Protonix) 20 mg DAILY@0600 PO Last administered on 07/17/18 06:56; Admin Dose 20 MG; Start 07/14/18 at 06:00 Tramadol HCl (Ultram) 50 mg TID PRN PO PAIN LEVEL 6-10 Last administered on 07/18/18 02:17; Admin Dose 50 MG; Start 07/13/18 at 23:30 Acetaminophen (Tylenol Tab) 650 mg Q6H PRN PO MILD PAIN(1-3)OR ELEVATED TEMP; Start 07/13/18 at 23:30 Hydralazine HCl (Apresoline) 20 mg Q6H PRN IV sbp over 170 Last administered on 07/14/18at 11:56; Admin Dose 20 MG; Start 07/13/18 at 23:30 Insulin Aspart (Novolog Insulin Pen) 3 unit WITH MEALS SC Last administered on 07/19/18at 18:00; Admin Dose 3 UNIT; Start 07/14/18 at 08:00 Miscellaneous Information 1 ea NOTE XX ; Start 07/13/18 at 23:30 Glucose (Glutose) 15 gm Q15M PRN PO DECREASED GLUCOSE; Start 07/13/18 at 23:30 Glucose (Glutose) 22.5 gm Q15M PRN PO DECREASED GLUCOSE; Start 07/13/18 at 23:30 Dextrose (D50w Syringe) 25 ml Q15M PRN IV DECREASED GLUCOSE; Start 07/13/18 at 23:30 Dextrose (D50w Syringe) 50 ml Q15M PRN IV DECREASED GLUCOSE; Start 07/13/18 at 23:30 Glucagon (Glucagen) 1 mg Q15M PRN IM DECREASED GLUCOSE; Start 07/13/18 at 23:30 Glucose (Glutose) 15 gm Q15M PRN BUCCAL DECREASED GLUCOSE; Start 07/13/18 at 23:30 Ondansetron HCl (Zofran Inj) 4 mg Q4H PRN IV NAUSEA AND/OR VOMITING Last administered on 07/19/18 22:52; Admin Dose 4 MG; Start 07/14/18 at 00:30 Miscellaneous Information [facility] This patient easley... PRN PRN XX WOUND CARE; Start 07/14/18 at 04:30 Hydromorphone HCl (Dilaudid) 1 mg Q4H PRN IV SEVERE PAIN LEVEL 7-10 Last administered on 07/20/18 09:22; Admin Dose 1 MG; Start 07/14/18 at 14:15 Losartan Potassium (Cozaar) 25 mg BID PO Last administered on 07/19/18 20:14; Admin Dose 25 MG; Start 07/14/18 at 21:00 Heparin Sodium (Porcine) (Heparin (5000 Units/1ml)) 5,000 unit BID SC Last administered on 07/19/18 21:05; Admin Dose 5,000 UNIT; Start 07/15/18 at 09:00 Aspirin (Ecotrin) 325 mg DAILY PO Last administered on 07/19/18 09:07; Admin Dose 325 MG; Start 07/16/18 at 09:00 Carvedilol (Coreg) 6.25 mg BID PO Last administered on 07/17/18 08:37; Admin Dose 6.25 MG; Start 07/15/18 at 21:00; Status Hold Acetaminophen/ Hydrocodone Bitart ([place] (5/325)) 1 tab Q3H PRN PO MODERATE PAIN LEVEL 4-6 Last administered on 07/20/18 05:34; Admin Dose 1 TAB; Start 07/16/18 at 11:30 Mupirocin (Bactroban) 1 applic BID TOP Last administered on 07/19/18 20:18; Admin Dose 1 APPLIC; Start 07/16/18 at 21:00; Stop 07/23/18 at 09:01 Hydralazine HCl (Apresoline) 25 mg TID PO Last administered on 07/19/18 20:15; Admin Dose 25 MG; Start 07/17/18 at 13:00 Heparin Sodium (Porcine) (Heparin (1000 Units/ml)) 4,000 unit AFTER DIALYSIS CATHETER Last administered on 07/18/18at 20:17; Admin Dose 3,400 UNIT; Start 07/17/18 at 12:30 Isosorbide Mononitrate (Imdur) 30 mg DAILY PO Last administered on 07/19/18at 09:07; Admin Dose 30 MG; Start 07/18/18 at 09:00 Diagnostic Test (Pha) (Accu-Chek) 1 ea 02 XX Last administered on 07/20/18at 0 2:20; Admin Dose 1 EA; Start 07/19/18 at 02:00 Clonidine (Catapres) 0.1 mg DAILY PO Last administered on 07/19/18at 09:08; Admin Dose 0.1 MG; Start 07/19/18 at 09:00 Hydromorphone HCl (Dilaudid) 0.2 mg PACU PRN IV MILD PAIN 1-3; Start 07/20/18 at 11:30; Stop 07/20/18 at 18:00 Hydromorphone HCl (Dilaudid) 0.4 mg PACU PRN IV MOD PAIN 4-6; Start 07/20/18 at 11:30; Stop 07/20/18 at 18:00 Ondansetron HCl (Zofran Inj) 4 mg PACU ORDER PRN IV NAUSEA/VOMITING; Start 07/20/18 at 11:30; Stop 07/20/18 at 18:00 Labetalol HCl (Labetalol) 5 mg PACU ORDER PRN IV HIGH BLOOD PRESSURE; Start 07/20/18 at 11:30; Stop 07/20/18 at 18:00 Hydralazine HCl (Apresoline) 5 mg PACU ORDER PRN IV HIGH BLOOD PRESSURE; Start 07/20/18 at 11:30; Stop 07/20/18 at 18:00 JUSTICE HARRISON Jul 20, 2018 11:26
[2018-07-20] MEDS ORDERED: ONDANSETRON 4 MG INJ IV PRN (11:30)
[2018-07-20] MEDS ORDERED: LABETALOL HCL 20MG INJ IV PRN (11:30)
[2018-07-20] MEDS ORDERED: HYDROmorphONE 1 MG/5 ML IV SYRINGE IV PRN ×2 (11:30)
[2018-07-20] MEDS ORDERED: hydrALAzine 20 MG INJ IV PRN (11:30)
[2018-07-20] MEDS ORDERED: NACL 0.9% 3 ML SYG IV SCH (11:30)
[2018-07-20] MEDS ORDERED: HYDROCODONE/APAP (5/325) TAB PO PRN (11:30)
--- NOTE | 2018-07-20 11:35 | PAC ---
Date/Time of Note Date/Time of Note DATE: 07/20/18 TIME: 11:34 Post-Anesthesia Notes Post-Anesthesia Note Last documented vital signs Vital Signs Date Temp Pulse Resp B/P (MAP) Pulse Ox O2 O2 Flow FiO2 Time Delivery Rate 07/20/18 98 65 16 150/65 100 1135 07/20/18 97.6 16 164/72 100 Room Air 07:40 (102) Activity: WNL Respiratory function: WNL Cardiovascular function: WNL Mental status: Baseline Pain reasonably controlled: Yes Hydration appropriate: Yes Nausea/Vomiting absent: Yes BECCA ANDERSON DO Jul 20, 2018 11:35
--- NOTE | 2018-07-20 11:53 | SIPON ---
Date/Time of Note Date/Time of Note DATE: 07/20/18 TIME: 11:47 Operative Report Preoperative Diagnosis pylon fracture of right ankle Postoperative Diagnosis same Operation/Procedure Performed manipulative reduction under anethesia & immobilization in a short leg cast Surgeon see signature line assistant editor none Anesthesia: general Estimated blood loss: none Transfusion Required none Specimen none Grafts/Implants none Complications none HOME DARNELL MD Jul 20, 2018 11:53
[2018-07-20] MEDS: hydrALAzine 20 MG INJ IV PRN (12:15)
[2018-07-20] MEDS: BALSAM PERU/CASTOR OIL 60 GM TUBE TOP SCH ×2 (13:11→21:00)
[2018-07-20] MEDS: MUPIROCIN 2% 22 GM OINT TOP SCH ×2 (13:11→20:47)
--- NOTE | 2018-07-20 13:14 | PN ---
Date/Time of Note Date/Time of Note DATE: 07/20/18 TIME: 13:13 Assessment/Plan VTE Prophylaxis Risk score (from Ns)>0 risk: 12 SCD applied (from Ns): No SCD contraindicated: bilateral amputee Pharmacological prophylaxis: NA/contraindicated Pharm contraindication: surgical contra Lines/Catheters IV Catheter Type (from Nrs): Peripheral IV Urinary Cath still in place: No Assessment/Plan Hospital Course 1. Hyperkalemia due to missed hemodialysis.due to fall 2 Acute comminuted fractures of the distal tibia and fibula that involve the distal tibiofibular joint. Distal tibia fracture extends to within 0.3 cm of the tibial plafond but does not involve the articular surface. The appearance is in keeping with an extra-articular Pilon fracture. S/p manipulative reduction under anesthesia & immobilization in a short leg cast by dr Stafford 07/20/2018 2. Hyponatremia. resolved 3. Metabolic acidosis. 4. Cardiomegaly and pulmonary edema. 5. Aortic atherosclerosis. 6. History of congestive heart failure. 7. History of diabetic retinopathy, nephropathy. 8. Hypoalbuminemia. 9. The patient has right lower extremity brace.with fracture 10. Left stump bruise 11 ? AFIB. 12 Congestive heart failure by x-ray, question systolic versus diastolic, likely acute on chronic given presentation. 13 elevated troponin in the setting of end-stage kidney disease 14. Anemia 15. Osteoporosis Assessment/Plan - titrate down clonidine - HD -calcium supplements fro osteoporosis - Pain control, dilaudid HD TTS, one today - Monitor for afib - CW /losartan/imdur - Pain control -GI/DVT prophylaxis Result Diagram: 07/19/18 0539 07/19/18 0539 Results 24hrs Laboratory Tests Test 07/19/18 18:06 07/20/18 02:19 07/20/18 07:58 Bedside Glucose 115 85 100 Subjective 24 Hr Interval Summary Free Text/Dictation in PACU Musculoskeletal: bone/joint pain Exam/Review of Systems Exam Vitals Vital Signs Date Temp Pulse Resp B/P (MAP) Pulse Ox O2 O2 Flow FiO2 Time Delivery Rate 07/20/18 81 12:35 07/20/18 21 172/77 99 Room Air 11:59 (108) 07/20/18 98.0 11:29 Intake and Output 2/01/2707/19/18 07/20/18 1515:00 23:00 07:00 IntakeIntake Total 360 ml 50 ml BalanceBalance 360 ml 50 ml Exam right chest Permcath Head: normocephalic Neck: supple Respiratory: clear to auscultation Cardiovascular: regular rate and rhythm Gastrointestinal: soft Musculoskeletal: other (right ) Results Results 24hrs Laboratory Tests Test 07/19/18 18:06 07/20/18 02:19 07/20/18 07:58 Bedside Glucose 115 85 100 Medications Medication Current Medications Atorvastatin Calcium (Lipitor) 40 mg QHS PO Last administered on 07/19/18 20:1 5; Admin Dose 40 MG; Start 07/14/18 at 21:00 Multivit/Ca Carb/ B Cmplx/FA/Prenat (Shyann-Raj) 1 tab DAILY PO Last administered on 07/19/18 09:08; Admin Dose 1 TAB; Start 07/14/18 at 09:00 Pantoprazole Sodium (Protonix) 20 mg DAILY@0600 PO Last administered on 07/17/18 06:56; Admin Dose 20 MG; Start 07/14/18 at 06:00 Tramadol HCl (Ultram) 50 mg TID PRN PO PAIN LEVEL 6-10 Last administered on 07/18/18 02:17; Admin Dose 50 MG; Start 07/13/18 at 23:30 Acetaminophen (Tylenol Tab) 650 mg Q6H PRN PO MILD PAIN(1-3)OR ELEVATED TEMP; Start 07/13/18 at 23:30 Hydralazine HCl (Apresoline) 20 mg Q6H PRN IV sbp over 170 Last administered on 07/14/18at 11:56; Admin Dose 20 MG; Start 07/13/18 at 23:30 Insulin Aspart (Novolog Insulin Pen) 3 unit WITH MEALS SC Last administered on 07/19/18 18:00; Admin Dose 3 UNIT; Start 07/14/18 at 08:00 Miscellaneous Information 1 ea NOTE XX ; Start 07/13/18 at 23:30 Glucose (Glutose) 15 gm Q15M PRN PO DECREASED GLUCOSE; Start 07/13/18 at 23:30 Glucose (Glutose) 22.5 gm Q15M PRN PO DECREASED GLUCOSE; Start 07/13/18 at 23:30 Dextrose (D50w Syringe) 25 ml Q15M PRN IV DECREASED GLUCOSE; Start 07/13/18 at 23:30 Dextrose (D50w Syringe) 50 ml Q15M PRN IV DECREASED GLUCOSE; Start 07/13/18 at 23:30 Glucagon (Glucagen) 1 mg Q15M PRN IM DECREASED GLUCOSE; Start 07/13/18 at 23:30 Glucose (Glutose) 15 gm Q15M PRN BUCCAL DECREASED GLUCOSE; Start 07/13/18 at 23:30 Ondansetron HCl (Zofran Inj) 4 mg Q4H PRN IV NAUSEA AND/OR VOMITING Last administered on 07/19/18 22:52; Admin Dose 4 MG; Start 07/14/18 at 00:30 Miscellaneous Information (Pending [facility] Order For Wound Care) This patient easley... PRN PRN XX WOUND CARE; Start 07/14/18 at 04:30 Hydromorphone HCl (Dilaudid) 1 mg Q4H PRN IV SEVERE PAIN LEVEL 7-10 Last administered on 07/20/18 09:22; Admin Dose 1 MG; Start 07/14/18 at 14:15 Losartan Potassium (Cozaar) 25 mg BID PO Last administered on 07/19/18 20:14; Admin Dose 25 MG; Start 07/14/18 at 21:00 Heparin Sodium (Porcine) (Heparin (5000 Units/1ml)) 5,000 unit BID SC Last administered on 07/19/18 21:05; Admin Dose 5,000 UNIT; Start 07/15/18 at 09:00 Aspirin (Ecotrin) 325 mg DAILY PO Last administered on 07/19/18 09:07; Admin Dose 325 MG; Start 07/16/18 at 09:00 Carvedilol (Coreg) 6.25 mg BID PO Last administered on 07/17/18 08:37; Admin Dose 6.25 MG; Start 07/15/18 at 21:00; Status Hold Mupirocin (Bactroban) 1 applic BID TOP Last administered on 07/19/18 20:18; Admin Dose 1 APPLIC; Start 07/16/18 at 21:00; Stop 07/23/18 at 09:01 Hydralazine HCl (Apresoline) 25 mg TID PO Last administered on 07/19/18 20:15; Admin Dose 25 MG; Start 07/17/18 at 13:00 Heparin Sodium (Porcine) (Heparin (1000 Units/ml)) 4,000 unit AFTER DIALYSIS CATHETER Last administered on 07/18/18at 20:17; Admin Dose 3,400 UNIT; Start 07/17/18 at 12:30 Isosorbide Mononitrate (Imdur) 30 mg DAILY PO Last administered on 07/19/18at 09:07; Admin Dose 30 MG; Start 07/18/18 at 09:00 Diagnostic Test (Pha) (Accu-Chek) 1 ea 02 XX Last administered on 07/20/18at 02:20; Admin Dose 1 EA; Start 07/19/18 at 02:00 Clonidine (Catapres) 0.1 mg DAILY PO Last administered on 07/19/18at 09:08; Admin Dose 0.1 MG; Start 07/19/18 at 09:00 Hydromorphone HCl (Dilaudid) 0.2 mg PACU PRN IV MILD PAIN 1-3; Start 07/20/18 at 11:30; Stop 07/20/18 at 18:00 Hydromorphone HCl (Dilaudid) 0.4 mg PACU PRN IV MOD PAIN 4-6; Start 07/20/18 at 11:30; Stop 07/20/18 at 18:00 Ondansetron HCl (Zofran Inj) 4 mg PACU ORDER PRN IV NAUSEA/VOMITING; Start 07/20/18 at 11:30; Stop 07/20/18 at 18:00 Labetalol HCl (Labetalol) 5 mg PACU ORDER PRN IV HIGH BLOOD PRESSURE; Start 07/20/18 at 11:30; Stop 07/20/18 at 18:00 Hydralazine HCl (Apresoline) 5 mg PACU ORDER PRN IV HIGH BLOOD PRESSURE Last administered on 07/20/18at 12:16; Admin Dose 5 MG; Start 07/20/18 at 11:30; Stop 07/20/18 at 18:00 Cefazolin Sodium 50 ml @ 100 mls/hr Q12H IVPB ; Start 07/20/18 at 11:30; Stop 07/20/18 at 23:59 IV Flush (NS 3 ml) 3 ml PER PROTOCOL IV ; Start 07/20/18 at 11:30 Sodium Chloride 1,000 ml @ 100 mls/hr Q10H IV ; Start 07/20/18 at 11:16 Morphine Sulfate (morphine) 2 mg Q2H PRN IV SEVERE PAIN LEVEL 7-10; Start 07/20/18 at 11:30 Acetaminophen/ Hydrocodone Bitart ([place] (5/325)) 1 tab Q3H PRN PO MODERATE PAIN LEVEL 4-6; Start 07/20/18 at 11:30 ANAYELI KEYES Jul 20, 2018 13:14
[2018-07-20] MEDS: SOD CHLORIDE 0.9% 1,000 ML IV SCH ×2 (13:32→21:16)
[2018-07-20] MEDS: CEFAZOLIN 1 GM/50 ML (PMX) 50 ML IVPB SCH (13:32)
[2018-07-20] MEDS: HEPARIN 5,000 UNIT/1 ML VIAL SC SCH ×2 (13:46→22:25)
--- NOTE | 2018-07-20 15:10 | OPR ---
DATE OF OPERATION: 07/20/2018 PREOPERATIVE DIAGNOSIS: Pilon fracture of the right ankle, severely comminuted and osteoporotic. POSTOPERATIVE DIAGNOSES: Pilon fracture of the right ankle, severely comminuted and osteoporotic plu s extensive soft tissue injuries with extensive edema and blister formation around the right ankle. PROCEDURE PERFORMED: Manipulative reduction of the pilon fracture of the right ankle under general a nesthesia and immobilization in a short leg cast plus initial care of the soft tissue damages with th e application of the dressings. ANESTHESIA: General anesthesia. SURGEON: Schuyler Darnell MD PROCEDURE AND FINDINGS: Under anesthesia, the splint around the right ankle was removed and the cond ition was assessed. It was noted that there was an extensive soft tissue damages around the right an kle with extensive blister formation. There are some signs of superficial soft tissue necrosis. Bec ause of these findings and because of the severe comminution and poor quality of bony structures incl uding osteoporosis, it was decided to carry out the manipulative reduction under anesthesia followed by application of dressings around the right ankle and immobilization in a short leg cast. First, limited debridement was carried out and wound dressings around the right ankle was applied. N ext, under the anesthesia, manipulative reduction was carried out lining up the bone as best as possi ble. Finally, right lower extremity was immobilized in a short leg cast and while the cast is gettin g solidified, further adjustment was achieved lining up the bone as much as possible. The patient tolerated the entire procedure very well and was sent to the recovery room in good condit ion. Dictated By: SCHUYLER DARNELL MD IK/NTS Conf#: [id number] DID#: [id number]
[2018-07-20] MEDS: HEPARIN 1000 UNITS/ML 10 ML INJ CATHETER SCH (17:15)
[2018-07-20] MEDS: CALCIUM/VITAMIN D (500/200) TAB PO SCH (20:46)
[2018-07-20] MEDS: ATORVASTATIN 40 MG TAB PO SCH (20:46)
[2018-07-21] VITALS (13 sets, daily range): BP systolic 115–180; BP diastolic 53–70; PULSE 69–104; RESP 15–20
[2018-07-21] MEDS: ONDANSETRON 4 MG INJ IV PRN ×2 (00:18→09:07)
[2018-07-21] MEDS: CEFAZOLIN 1 GM/50 ML (PMX) 50 ML IVPB SCH (00:48)
[2018-07-21] MEDS: ACCU-CHEK XX SCH (01:54)
[2018-07-21] MEDS ORDERED: METOPROLOL 5 MG INJ IV PRN (02:00)
[2018-07-21] MEDS: morphine 2 MG INJ IV PRN ×3 (04:24→09:07)
[2018-07-21] MEDS: PANTOPRAZOLE SODIUM 20 MG TABEC PO SCH (06:43)
[2018-07-21] MEDS: SOD CHLORIDE 0.9% 1,000 ML IV SCH ×2 (07:52→17:48)
[2018-07-21] MEDS: MULTIVIT/CA CARB/B CMPLX/FA TAB PO SCH (08:20)
[2018-07-21] MEDS: CALCIUM/VITAMIN D (500/200) TAB PO SCH ×2 (08:20→20:41)
[2018-07-21] MEDS: ASPIRIN (EC) 325 MG TAB PO SCH (08:20)
[2018-07-21] MEDS: ISOSORBIDE MONONITRATE(SR)30 MG TAB PO SCH (08:21)
[2018-07-21] MEDS: LOSARTAN 25 MG TAB PO SCH ×2 (08:21→20:40)
[2018-07-21] MEDS: BALSAM PERU/CASTOR OIL 60 GM TUBE TOP SCH ×2 (08:22→20:41)
[2018-07-21] MEDS: MUPIROCIN 2% 22 GM OINT TOP SCH ×2 (08:22→20:41)
[2018-07-21] MEDS: INSULIN ASPART [NOVOLOG] 3 ML PEN SC SCH ×3 (08:24→17:52)
[2018-07-21] MEDS: HEPARIN 5,000 UNIT/1 ML VIAL SC SCH ×2 (08:25→20:48)
[2018-07-21] MEDS ORDERED: ENOXAPARIN 40 MG/0.4 ML SYG SC SCH (09:00)
[2018-07-21] MEDS ORDERED: KETOROLAC 15 MG INJ IV STA (09:30)
[2018-07-21] MEDS: traMADol 50 MG TAB PO PRN ×2 (09:31→16:19)
--- NOTE | 2018-07-21 09:34 | PN ---
Date/Time of Note Date/Time of Note DATE: 07/21/18 TIME: 09:31 Assessment/Plan VTE Prophylaxis Risk score (from Nsg)>0 risk: 11 SCD applied (from Ns): No SCD contraindicated: bilateral amputee Pharmacological prophylaxis: heparin Lines/Catheters IV Catheter Type (from Nrs): Peripheral IV Urinary Cath still in place: No Assessment/Plan Hospital Course 1. Hyperkalemia due to missed hemodialysis.due to fall 2 Acute comminuted fractures of the distal tibia and fibula that involve the distal tibiofibular joint. Distal tibia fracture extends to within 0.3 cm of the tibial plafond but does not involve the articular surface. The appearance is in keeping with an extra-articular Pilon fracture. S/p manipulative reduction under anesthesia & immobilization in a short leg cast by dr Stafford 07/20/2018 2. Hyponatremia. resolved 3. Metabolic acidosis. 4. Cardiomegaly and pulmonary edema. 5. Aortic atherosclerosis. 6. History of congestive heart failure. 7. History of diabetic retinopathy, nephropathy. 8. Hypoalbuminemia. 9. The patient has right lower extremity brace.with fracture 10. Left stump bruise, resolving 11 ? AFIB. 12 Congestive heart failure by x-ray, question systolic versus diastolic, likely acute on chronic given presentation. 13 elevated troponin in the setting of end-stage kidney disease 14. Anemia 15. Osteoporosis Assessment/Plan -PT eval - c/w clonidine -titrate down Hydromorphone - HD -calcium supplements fro osteoporosis - Pain control, [place]/dilaudid -HD TTS, - Monitor for afib - CW /losartan/imdur - Pain control -GI/DVT prophylaxis Result Diagram: 07/19/18 0539 07/19/18 0539 Results 24hrs Laboratory Tests Test 07/20/18 13:09 07/20/18 17:22 07/21/18 01:55 07/21/18 07:50 Bedside Glucose 105 78 101 105 Subjective 24 Hr Interval Summary Musculoskeletal: bone/joint pain (right foot severer pain) Exam/Review of Systems Exam Vitals Vital Signs Date Temp Pulse Resp B/P (MAP) Pulse Ox O2 O2 Flow FiO2 Time Delivery Rate 07/21/18 86 08:01 07/21/18 98.7 16 180/70 98 Room Air 07:56 (106) Intake and Output 07/20/18 07/20/18 07/21/18 1515:00 23:00 07:00 IntakeIntake Total 100 ml 240 ml OutputOutput Total 2400 ml BalanceBalance 100 ml -2160 ml Constitutional: alert Head: normocephalic Eyes: nl conjunctiva, other (left eye defect) Neck: supple Respiratory: clear to auscultation Gastrointestinal: soft Results Results 24hrs Laboratory Tests Test 07/20/18 13:09 07/20/18 17:22 07/21/18 01:55 07/21/18 07:50 Bedside Glucose 105 78 101 105 Medications Medication Current Medications Atorvastatin Calcium (Lipitor) 40 mg QHS PO Last administered on 07/20/18at 20:46; Admin Dose 40 MG; Start 07/14/18 at 21:00 Multivit/Ca Carb/ B Cmplx/FA/Prenat (Shyann-Raj) 1 tab DAILY PO Last administered on 07/21/18at 08:20; Admin Dose 1 TAB; Start 07/14/18 at 09:00 Pantoprazole Sodium (Protonix) 20 mg DAILY@0600 PO Last administered on 07/21/18 06:43; Admin Dose 20 MG; Start 07/14/18 at 06:00 Tramadol HCl (Ultram) 50 mg TID PRN PO PAIN LEVEL 6-10 Last administered on 07/18/18at 02:17; Admin Dose 50 MG; Start 07/13/18 at 23:30 Acetaminophen (Tylenol Tab) 650 mg Q6H PRN PO MILD PAIN(1-3)OR ELEVATED TEMP; Start 07/13/18 at 23:30 Hydralazine HCl (Apresoline) 20 mg Q6H PRN IV sbp over 170 Last administered on 07/14/18at 11:56; Admin Dose 20 MG; Start 07/13/18 at 23:30 Insulin Aspart (Novolog Insulin Pen) 3 unit WITH MEALS SC Last administered on 07/21/18at 08:24; Admin Dose 3 UNIT; Start 07/14/18 at 08:00 Miscellaneous Information 1 ea NOTE XX ; Start 07/13/18 at 23:30 Glucose (Glutose) 15 gm Q15M PRN PO DECREASED GLUCOSE; Start 07/13/18 at 23:30 Glucose (Glutose) 22.5 gm Q15M PRN PO DECREASED GLUCOSE; Start 07/13/18 at 23:30 Dextrose (D50w Syringe) 25 ml Q15M PRN IV DECREASED GLUCOSE; Start 07/13/18 at 23:30 Dextrose (D50w Syringe) 50 ml Q15M PRN IV DECREASED GLUCOSE; Start 07/13/18 at 23:30 Glucagon (Glucagen) 1 mg Q15M PRN IM DECREASED GLUCOSE; Start 07/13/18 at 23:30 Glucose (Glutose) 15 gm Q15M PRN BUCCAL DECREASED GLUCOSE; Start 07/13/18 at 23:30 Ondansetron HCl (Zofran Inj) 4 mg Q4H PRN IV NAUSEA AND/OR VOMITING Last administered on 07/21/18 09:07; Admin Dose 4 MG; Start 07/14/18 at 00:30 Miscellaneous Information ([facility]) This patient easley... PRN PRN XX WOUND CARE; Start 07/14/18 at 04:30 Hydromorphone HCl (Dilaudid) 1 mg Q4H PRN IV SEVERE PAIN LEVEL 7-10 Last administered on 07/20/18 20:47; Admin Dose 1 MG; Start 07/14/18 at 14:15 Losartan Potassium (Cozaar) 25 mg BID PO Last administered on 07/21/18 08:21; Admin Dose 25 MG; Start 07/14/18 at 21:00 Heparin Sodium (Porcine) (Heparin (5000 Units/1ml)) 5,000 unit BID SC Last administered on 07/21/18 08:25; Admin Dose 5,000 UNIT; Start 07/15/18 at 09:00 Aspirin (Ecotrin) 325 mg DAILY PO Last administered on 07/21/18 08:20; Admin Dose 325 MG; Start 07/16/18 at 09:00 Carvedilol (Coreg) 6.25 mg BID PO Last administered on 07/17/18 08:37; Admin Dose 6.25 MG; Start 07/15/18 at 21:00; Status Hold Mupirocin (Bactroban) 1 applic BID TOP Last administered on 07/21/18 08:22; Admin Dose 1 APPLIC; Start 07/16/18 at 21:00; Stop 07/23/18 at 09:01 Hydralazine HCl (Apresoline) 25 mg TID PO Last administered on 07/21/18 08:21; Admin Dose 25 MG; Start 07/17/18 at 13:00 Heparin Sodium (Porcine) (Heparin (1000 Units/ml)) 4,000 unit AFTER DIALYSIS CATHETER Last administered on 07/20/18 17:15; Admin Dose 3,400 UNIT; Start at 12:30 Isosorbide Mononitrate (Imdur) 30 mg DAILY PO Last administered on 07/21/18 08:21; Admin Dose 30 MG; Start 07/18/18 at 09:00 Diagnostic Test (Pha) (Accu-Chek) 1 ea 02 XX Last administered on 07/21/18 01:54; Admin Dose 1 EA; Start 07/19/18 at 02:00 Clonidine (Catapres) 0.1 mg DAILY PO Last administered on 07/21/18 08:21; Admin Dose 0.1 MG; Start 07/19/18 at 09:00 IV Flush (NS 3 ml) 3 ml PER PROTOCOL IV ; Start 07/20/18 at 11:30 Sodium Chloride 1,000 ml @ 100 mls/hr Q10H IV Last administered on 07/21/18 07:52; Admin Dose 100 MLS/HR; Start 07/20/18 at 11:16 Morphine Sulfate (morphine) 2 mg Q2H PRN IV SEVERE PAIN LEVEL 7-10 Last administered on 07/21/18 09:07; Admin Dose 2 MG; Start 07/20/18 at 11:30 Acetaminophen/ Hydrocodone Bitart ([place] (5/325)) 1 tab Q3H PRN PO MODERATE PAIN LEVEL 4-6; Start 07/20/18 at 11:30 Calcium/Vitamin D (Oyster Shell/ Vit-D (500/200)) 1 tab BID PO Last administered on 07/21/18 08:20; Admin Dose 1 TAB; Start 07/20/18 at 21:00 Metoprolol Tartrate (Lopressor) 5 mg Q4H PRN IV HR > 110; Hold if SBP < 100 Last administered on 07/21/18 01:52; Admin Dose 5 MG; Start 07/21/18 at 02:00 ANAYELI KEYES Jul 21, 2018 09:34
--- NOTE | 2018-07-21 11:22 | CONS ---
Assessment/Plan Assessment/Plan Hospital Course (Demo Recall) IMP: 1. Preoperative for LE ORIF-NL EF by echo with mod-sev TR. Lexiscan with NL EF and partially reversible inferior wall defect. Thus patient has no cardiac contraindication to proceeding to OR on current medications but at moderate to high risk. Now post-op s/p ORIF 2.Positive troponin 3.BRadycardia to 40's/stable BP. S Misael- now improved with decrease in dose of clonidine and having short runs of tachycardia/SVT. ? SSS/tachy-misael 4.HTN-uncontrolled at this time 5.ankle fracture 6.ESRD on HD 7. TR-mod-sev 8. ? sick euthyroid-elevated TSH and Free t4 Recc -Continue losartan/imdur/hydralazine as tolerated -will resume low dose coreg and follow HR/rhythm clsoely -HD for volume removal -pain control Consultation Date/Type/Reason Admit Date/Time Jul 13, 2018 at 21:32 Initial Consult Date 07/16/18 Type of Consult Cardiology Reason for Consultation tachycardia Requesting Provider: ADAM DUARTE MD Date/Time of Note DATE: 07/21/18 TIME: 11:19 Exam/Review of Systems Vital Signs Vitals Vital Signs Date Temp Pulse Resp B/P (MAP) Pulse Ox O2 O2 Flow FiO2 Time Delivery Rate 07/21/18 86 08:01 07/21/18 98.7 16 180/70 98 Room Air 07:56 (106) Intake and Output 07/20/18 07/20/18 07/21/18 1515:00 23:00 07:00 IntakeIntake Total 100 ml 240 ml OutputOutput Total 2400 ml BalanceBalance 100 ml -2160 ml Exam Exam Review of Systems: CONSTITUTIONAL: No fevers, chills. PULMONARY: No sob CARDIOVASCULAR: No chest pain/palpitations GASTROINTESTINAL: No nausea/vomiting. GENITOURINARY: No hematuria/dysuria. MUSCULOSKELETAL: No myagias/arthalgias. PSYCHIATRIC: The patient denies depression. NEUROLOGIC: No weakness Constitutional: alert Psych: no complaints Head: normocephalic ENMT: mucosa pink and moist Neck: supple, jvd (9 cm water) Respiratory: clear to auscultation Cardiovascular: regular rate and rhythm Gastrointestinal: soft, non-tender Musculoskeletal: muscle weakness (generalized) Extremities: edema (none) Neurological: other (No focal defiicts) Labs Result Diagram: 07/19/18 0539 07/19/18 0539 Results 24hrs Laboratory Tests Test 07/20/18 13:09 07/20/18 17:22 07/21/18 01:55 07/21/18 07:50 Bedside Glucose 105 78 101 105 Medications Medications Current Medications Atorvastatin Calcium (Lipitor) 40 mg QHS PO Last administered on 07/20/18at 20:46; Admin Dose 40 MG; Start 07/14/18 at 21:00 Multivit/Ca Carb/ B Cmplx/FA/Prenat (Shyann-Raj) 1 tab DAILY PO Last administered on 07/21/18 08:20; Admin Dose 1 TAB; Start 07/14/18 at 09:00 Pantoprazole Sodium (Protonix) 20 mg DAILY@0600 PO Last administered on 07/21/18at 06:43; Admin Dose 20 MG; Start 07/14/18 at 06:00 Tramadol HCl (Ultram) 50 mg TID PRN PO PAIN LEVEL 6-10 Last administered on 07/21/18at 09:31; Admin Dose 50 MG; Start 07/13/18 at 23:30 Acetaminophen (Tylenol Tab) 650 mg Q6H PRN PO MILD PAIN(1-3)OR ELEVATED TEMP; Start 07/13/18 at 23:30 Hydralazine HCl (Apresoline) 20 mg Q6H PRN IV sbp over 170 Last administered on 07/14/18at 11:56; Admin Dose 20 MG; Start 07/13/18 at 23:30 Insulin Aspart (Novolog Insulin Pen) 3 unit WITH MEALS SC Last administered on 07/21/18at 08:24; Admin Dose 3 UNIT; Start 07/14/18 at 08:00 Miscellaneous Information 1 ea NOTE XX ; Start 07/13/18 at 23:30 Glucose (Glutose) 15 gm Q15M PRN PO DECREASED GLUCOSE; Start 07/13/18 at 23:30 Glucose (Glutose) 22.5 gm Q15M PRN PO DECREASED GLUCOSE; Start 07/13/18 at 23:30 Dextrose (D50w Syringe) 25 ml Q15M PRN IV DECREASED GLUCOSE; Start 07/13/18 at 23:30 Dextrose (D50w Syringe) 50 ml Q15M PRN IV DECREASED GLUCOSE; Start 07/13/18 at 23:30 Glucagon (Glucagen) 1 mg Q15M PRN IM DECREASED GLUCOSE; Start 07/13/18 at 23:30 Glucose (Glutose) 15 gm Q15M PRN BUCCAL DECREASED GLUCOSE; Start 07/13/18 at 23:30 Ondansetron HCl (Zofran Inj) 4 mg Q4H PRN IV NAUSEA AND/OR VOMITING Last administered on 07/21/18 09:07; Admin Dose 4 MG; Start 07/14/18 at 00:30 Miscellaneous Information (Pending [facility]yl Order For Wound Care) This patient easley... PRN PRN XX WOUND CARE; Start 07/14/18 at 04:30 Losartan Potassium (Cozaar) 25 mg BID PO Last administered on 07/21/18 08:21; Admin Dose 25 MG; Start 07/14/18 at 21:00 Heparin Sodium (Porcine) (Heparin (5000 Units/1ml)) 5,000 unit BID SC Last administered on 07/21/18 08:25; Admin Dose 5,000 UNIT; Start 07/15/18 at 09:00 Aspirin (Ecotrin) 325 mg DAILY PO Last administered on 07/21/18 08:20; Admin Dose 325 MG; Start 07/16/18 at 09:00 Carvedilol (Coreg) 6.25 mg BID PO Last administered on 07/17/18 08:37; Admin Dose 6.25 MG; Start 07/15/18 at 21:00; Status Hold Mupirocin (Bactroban) 1 applic BID TOP Last administered on 07/21/18 08:22; Admin Dose 1 APPLIC; Start 07/16/18 at 21:00; Stop 07/23/18 at 09:01 Hydralazine HCl (Apresoline) 25 mg TID PO Last administered on 07/21/18 08:21; Admin Dose 25 MG; Start 07/17/18 at 13:00 Heparin Sodium (Porcine) (Heparin (1000 Units/ml)) 4,000 unit AFTER DIALYSIS CATHETER Last administered on 07/20/18 17:15; Admin Dose 3,400 UNIT; Start 07/17/18 at 12:30 Isosorbide Mononitrate (Imdur) 30 mg DAILY PO Last administered on 07/21/18 08:21; Admin Dose 30 MG; Start 07/18/18 at 09:00 Diagnostic Test (Pha) (Accu-Chek) 1 ea 02 XX Last administered on 07/21/18 01:54; Admin Dose 1 EA; Start 07/19/18 at 02:00 Clonidine (Catapres) 0.1 mg DAILY PO Last administered on 07/21/18 08:21; Admin Dose 0.1 MG; Start 07/19/18 at 09:00 IV Flush (NS 3 ml) 3 ml PER PROTOCOL IV ; Start 07/20/18 at 11:30 Sodium Chloride 1,000 ml @ 100 mls/hr Q10H IV Last administered on 07/21/18 07:52; Admin Dose 100 MLS/HR; Start 07/20/18 at 11:16 Morphine Sulfate (morphine) 2 mg Q2H PRN IV SEVERE PAIN LEVEL 7-10 Last administered on 07/21/18 09:07; Admin Dose 2 MG; Start 07/20/18 at 11:30 Acetaminophen/ Hydrocodone Bitart ([place] (5/325)) 1 tab Q3H PRN PO MODERATE PAIN LEVEL 4-6; Start 07/20/18 at 11:30 Calcium/Vitamin D (Oyster Shell/ Vit-D (500/200)) 1 tab BID PO Last administered on 07/21/18 08:20; Admin Dose 1 TAB; Start 07/20/18 at 21:00 Metoprolol Tartrate (Lopressor) 5 mg Q4H PRN IV HR > 110; Hold if SBP < 100 Last administered on 07/21/18 01:52; Admin Dose 5 MG; Start 07/21/18 at 02:00 Hydromorphone HCl (Dilaudid) 1 mg Q6H PRN IV SEVERE PAIN LEVEL 7-10; Start 07/21/18 at 10:00 JUSTICE HARRISON Jul 21, 2018 11:22
[2018-07-21] MEDS: ATORVASTATIN 40 MG TAB PO SCH (20:40)
[2018-07-22] VITALS (13 sets, daily range): BP systolic 136–145; BP diastolic 63–78; PULSE 70–95; RESP 17–18
[2018-07-22] MEDS: ACCU-CHEK XX SCH (02:17)
[2018-07-22] MEDS: SOD CHLORIDE 0.9% 1,000 ML IV SCH ×2 (02:53→12:17)
[2018-07-22] MEDS: PANTOPRAZOLE SODIUM 20 MG TABEC PO SCH (06:00)
[2018-07-22] MEDS: BALSAM PERU/CASTOR OIL 60 GM TUBE TOP SCH ×2 (08:07→21:08)
[2018-07-22] MEDS: ASPIRIN (EC) 325 MG TAB PO SCH (08:08)
[2018-07-22] MEDS: MUPIROCIN 2% 22 GM OINT TOP SCH ×2 (08:08→21:08)
[2018-07-22] MEDS: ISOSORBIDE MONONITRATE(SR)30 MG TAB PO SCH (08:08)
[2018-07-22] MEDS: LOSARTAN 25 MG TAB PO SCH ×2 (08:09→21:06)
[2018-07-22] MEDS: CALCIUM/VITAMIN D (500/200) TAB PO SCH ×2 (08:09→21:13)
[2018-07-22] MEDS: MULTIVIT/CA CARB/B CMPLX/FA TAB PO SCH (08:09)
[2018-07-22] MEDS: INSULIN ASPART [NOVOLOG] 3 ML PEN SC SCH ×3 (08:15→17:22)
[2018-07-22] MEDS: traMADol 50 MG TAB PO PRN (08:22)
[2018-07-22] MEDS: HEPARIN 5,000 UNIT/1 ML VIAL SC SCH ×2 (08:26→21:20)
--- NOTE | 2018-07-22 11:04 | CONS ---
Assessment/Plan Assessment/Plan Hospital Course (Demo Recall) IMP: 1. Preoperative for LE ORIF-NL EF by echo with mod-sev TR. Lexiscan with NL EF and partially reversible inferior wall defect. Thus patient has no cardiac contraindication to proceeding to OR on current medications but at moderate to high risk. Now post-op s/p ORIF 2.Positive troponin 3.BRadycardia to 40's/stable BP. S Misael- now improved with decrease in dose of clonidine and having short runs of tachycardia/SVT. ? SSS/tachy-misael, xurrently stable HR 4.HTN-uncontrolled at this time 5.ankle fracture 6.ESRD on HD 7. TR-mod-sev 8. ? sick euthyroid-elevated TSH and Free t4 Recc -Continue losartan/imdur/hydralazine as tolerated -Continue coreg -HD for volume removal -pain control Consultation Date/Type/Reason Admit Date/Time Jul 13, 2018 at 21:32 Initial Consult Date 07/16/18 Type of Consult Cardiology Reason for Consultation HTN Requesting Provider: ADAM DUARTE MD Date/Time of Note DATE: 07/22/18 TIME: 11:01 Exam/Review of Systems Vital Signs Vitals Vital Signs Date Temp Pulse Resp B/P (MAP) Pulse Ox O2 O2 Flow FiO2 Time Delivery Rate 07/22/18 85 08:01 07/22/18 98.3 18 136/63 98 07:44 (87) 07/21/18 Room Air 19:20 Intake and Output 07/21/18 07/21/18 07/22/18 1515:00 23:00 07:00 IntakeIntake Total 1150 ml 1700 ml 650 ml OutputOutput Total 1 ml BalanceBalance 1150 ml 1699 ml 650 ml Exam Exam Review of Systems: CONSTITUTIONAL: No fevers, chills. PULMONARY: No sob CARDIOVASCULAR: No chest pain/palpitations GASTROINTESTINAL: No nausea/vomiting. GENITOURINARY: No hematuria/dysuria. MUSCULOSKELETAL: No myagias/arthalgias. PSYCHIATRIC: The patient denies depression. NEUROLOGIC: No weakness Constitutional: alert Psych: no complaints Head: normocephalic ENMT: mucosa pink and moist Neck: supple, jvd (9 cm water) Respiratory: clear to auscultation Cardiovascular: regular rate and rhythm Gastrointestinal: soft, non-tender Musculoskeletal: muscle tone (normAL) Extremities: edema (NONE) Labs Result Diagram: 07/19/1839 07/19/1839 Results 24hrs Laboratory Tests Test 07/21/18 12:04 07/21/18 17:45 07/22/18 02:12 07/22/18 07:52 Bedside Glucose 87 172 144 86 Medications Medications Current Medications Atorvastatin Calcium (Lipitor) 40 mg QHS PO Last administered on 07/21/18at 20:40; Admin Dose 40 MG; Start 07/14/18 at 21:00 Multivit/Ca Carb/ B Cmplx/FA/Prenat (Shyann-Raj) 1 tab DAILY PO Last administered on 07/22/18at 08:09; Admin Dose 1 TAB; Start 07/14/18 at 09:00 Pantoprazole Sodium (Protonix) 20 mg DAILY@0600 PO Last administered on 07/21/18at 06:43; Admin Dose 20 MG; Start 07/14/18 at 06:00 Tramadol HCl (Ultram) 50 mg TID PRN PO PAIN LEVEL 6-10 Last administered on 07/22/18at 08:22; Admin Dose 50 MG; Start 07/13/18 at 23:30 Acetaminophen (Tylenol Tab) 650 mg Q6H PRN PO MILD PAIN(1-3)OR ELEVATED TEMP; Start 07/13/18 at 23:30 Hydralazine HCl (Apresoline) 20 mg Q6H PRN IV sbp over 170 Last administered on 07/14/18at 11:56; Admin Dose 20 MG; Start 07/13/18 at 23:30 Insulin Aspart (Novolog Insulin Pen) 3 unit WITH MEALS SC Last administered on 07/22/18at 08:15; Admin Dose 3 UNIT; Start 07/14/18 at 08:00 Miscellaneous Information 1 ea NOTE XX ; Start 07/13/18 at 23:30 Glucose (Glutose) 15 gm Q15M PRN PO DECREASED GLUCOSE; Start 07/13/18 at 23:30 Glucose (Glutose) 22.5 gm Q15M PRN PO DECREASED GLUCOSE; Start 07/13/18 at 23:30 Dextrose (D50w Syringe) 25 ml Q15M PRN IV DECREASED GLUCOSE; Start 07/13/18 at 23:30 Dextrose (D50w Syringe) 50 ml Q15M PRN IV DECREASED GLUCOSE; Start 07/13/18 at 23:30 Glucagon (Glucagen) 1 mg Q15M PRN IM DECREASED GLUCOSE; Start 07/13/18 at 23:30 Glucose (Glutose) 15 gm Q15M PRN BUCCAL DECREASED GLUCOSE; Start 07/13/18 at 23:30 Ondansetron HCl (Zofran Inj) 4 mg Q4H PRN IV NAUSEA AND/OR VOMITING Last administered on 07/21/18 09:07; Admin Dose 4 MG; Start 07/14/18 at 00:30 Miscellaneous Information (Pending [facility] Order For Wound Care) This patient easley... PRN PRN XX WOUND CARE; Start 07/14/18 at 04:30 Losartan Potassium (Cozaar) 25 mg BID PO Last administered on 07/22/18 08:09; Admin Dose 25 MG; Start 07/14/18 at 21:00 Heparin Sodium (Porcine) (Heparin (5000 Units/1ml)) 5,000 unit BID SC Last administered on 07/22/18 08:26; Admin Dose 5,000 UNIT; Start 07/15/18 at 09:00 Aspirin (Ecotrin) 325 mg DAILY PO Last administered on 07/22/18 08:08; Admin Dose 325 MG; Start 07/16/18 at 09:00 Mupirocin (Bactroban) 1 applic BID TOP Last administered on 07/22/18 08:08; Admin Dose 1 APPLIC; Start 07/16/18 at 21:00; Stop 07/23/18 at 09:01 Heparin Sodium (Porcine) (Heparin (1000 Units/ml)) 4,000 unit AFTER DIALYSIS CATHETER Last administered on 07/20/18 17:15; Admin Dose 3,400 UNIT; Start 07/17/18 at 12:30 Isosorbide Mononitrate (Imdur) 30 mg DAILY PO Last administered on 07/22/18 08:08; Admin Dose 30 MG; Start 07/18/18 at 09:00 Diagnostic Test (Pha) (Accu-Chek) 1 ea 02 XX Last administered on 07/22/18 02:17; Admin Dose 1 EA; Start 07/19/18 at 02:00 Clonidine (Catapres) 0.1 mg DAILY PO Last administered on 07/22/18 08:08; Admin Dose 0.1 MG; Start 07/19/18 at 09:00 IV Flush (NS 3 ml) 3 ml PER PROTOCOL IV ; Start 07/20/18 at 11:30 Sodium Chloride 1,000 ml @ 100 mls/hr Q10H IV Last administered on 07/22/18 02:53; Admin Dose 100 MLS/HR; Start 07/20/18 at 11:16 Morphine Sulfate (morphine) 2 mg Q2H PRN IV SEVERE PAIN LEVEL 7-10 Last administered on 07/21/18 09:07; Admin Dose 2 MG; Start 07/20/18 at 11:30 Acetaminophen/ Hydrocodone Bitart ([place] (5/325)) 1 tab Q3H PRN PO MODERATE PAIN LEVEL 4-6 Last administered on 07/21/18 12:47; Admin Dose 1 TAB; Start 07/20/18 at 11:30 Calcium/Vitamin D (Oyster Shell/ Vit-D (500/200)) 1 tab BID PO Last administered on 07/22/18 08:09; Admin Dose 1 TAB; Start 07/20/18 at 21:00 Metoprolol Tartrate (Lopressor) 5 mg Q4H PRN IV HR > 110; Hold if SBP < 100 Last administered on 07/21/18 01:52; Admin Dose 5 MG; Start 07/21/18 at 02:00 Hydromorphone HCl (Dilaudid) 1 mg Q6H PRN IV SEVERE PAIN LEVEL 7-10; Start 07/21/18 at 10:00 Carvedilol (Coreg) 3.125 mg BID PO Last administered on 07/22/18 08:09; Admin Dose 3.125 MG; Start 07/21/18 at 21:00 Hydralazine HCl (Apresoline) 50 mg TID PO Last administered on 07/22/18 08:09; Admin Dose 50 MG; Start 07/21/18 at 13:00 JUSTICE HARRISON Jul 22, 2018 11:04
--- NOTE | 2018-07-22 11:30 | CONS ---
DATE OF ADMISSION: 07/13/2018 DATE OF CONSULTATION: 07/22/2018 REFERRING PHYSICIAN: Dr. Ramila Duarte REASON FOR CONSULTATION: To evaluate left stump pain. HISTORY OF PRESENT ILLNESS: This is a 78-year-old woman. She has end-stage renal disease, diabetes, hypertension, cardiomegaly. She was admitted with a right distal tibia-fibula fracture. She is now in a cast. She was taken to the operating room by Dr. Boston and had a reduction and casting. No surg laure was done. She is having pain in the left BKA stump. It looks like she probably fell on it when she broke her right ankle, and I was asked to evaluate the stump for pain. PAST MEDICAL HISTORY: Significant for end-stage renal disease, CHF, diabetes, peripheral arterial di sease, AFib, osteoporosis. PAST SURGICAL HISTORY: Significant for left BKA. She has had a CABG. She has a right IJ Perm-A-Cat h. It does not look like she has ever had any arm accesses. MEDICATIONS: Consist of: 1. Atorvastatin. 2. Vitamins. 3. Protonix. 4. Ultram. 5. Tylenol. 6. Apresoline. 7. NovoLog. 8. Zofran. 9. Dilaudid. 10. Cozaar. 11. Subcutaneous heparin. 12. Losartan. 13. Aspirin. 14. Coreg. 15. [place]. 16. Bactroban. 17. Apresoline. 18. Imdur. 19. Clonidine. ALLERGIES: SHE HAS NO KNOWN DRUG ALLERGIES. SOCIAL HISTORY: She is a nonsmoker. She does not drink or use any illicit drugs. REVIEW OF SYSTEMS: Currently, she complains of pain in the left BKA stump and in the right ankle. S he denies any chest pain, shortness of breath, nausea, vomiting or diarrhea. No fevers, no chills, n o recent weight gain or weight loss. PHYSICAL EXAMINATION GENERAL: She is an elderly woman. She appears comfortable. She is not in any distress. VITAL SIGNS: She has been afebrile. Blood pressure is 136/63, heart rate 74, respiratory rate is 18 . She is 98% sat on room air. NECK: She has 2+ carotid, radial and brachial pulses bilaterally. she has got some moderate arm aneudy ma bilaterally. She has 2+ radial and brachial pulses bilaterally. ABDOMEN: Soft, nontender, nondistended. EXTREMITIES: She has 2+ femoral pulses bilaterally. There is a left below-knee amputation that is w ell healed. There is ecchymosis all over the stump. It looks like she fell on it. There are no ulc erations or breakdown. It is not ischemic. It is warm, and there are no signs of ischemia. The righ t leg, she has got the knee contracted. She is keeping it that way. She has a cast from the knee al l the way down to covering the toes. You can see the distal toes. The toes have good color. There are no ulcerations on the toes. They do not appear ischemic, and she underwent a recent reduction an d casting just 2 days ago of that right ankle. LABORATORY DATA: Hemoglobin is stable at 10.7. Creatinine today is 1.8. When she came in, it was 5. 6. She has not had any imaging studies of the lower extremities to check the circulation, so I am go ing to order an arterial duplex of bilateral lower extremities. I am also going to order a vein ange ing. She is going to stay on dialysis. She should have an access at some point, so I am going to ch rupert and see if she has decent upper extremity veins, and I will follow her along with you. The pain in the stump is clearly traumatic. It is not ischemic. She probably has some ischemia in the right lower extremity, but the leg is casted presently and I cannot really examine it very well. I will fo llow her along with you. Dictated By: JUSTICE JEFFREY/RENETTA Conf#: [id number] DID#: [id number] CC: RAMILA DUARTE; SAM KRUEGER MD; SCHUYLER BOSTON MD;*EndCC*
--- NOTE | 2018-07-22 12:16 | CONS ---
Assessment/Plan Assessment/Plan Hospital Course (Demo Recall) IMP: 1. Preoperative for LE ORIF-NL EF by echo with mod-sev TR. Lexiscan with NL EF and partially reversible inferior wall defect. Thus patient has no cardiac contraindication to proceeding to OR on current medications but at moderate to high risk. Now post-op s/p ORIF 2.Positive troponin 3.BRadycardia to 40's/stable BP. S Misael- now improved with decrease in dose of clonidine and having short runs of tachycardia/SVT. ? SSS/tachy-misael, xurrently stable HR 4.HTN-uncontrolled at this time 5.ankle fracture 6.ESRD on HD 7. TR-mod-sev 8. ? sick euthyroid-elevated TSH and Free t4 Recc -Continue losartan/imdur/hydralazine and change clonidine to BID and follow-up- BP closely -Continue coreg -HD for volume removal -pain control Consultation Date/Type/Reason Admit Date/Time Jul 13, 2018 at 21:32 Initial Consult Date 07/16/18 Type of Consult Cardiology Reason for Consultation HTN Requesting Provider: ADAM DUARTE MD Date/Time of Note DATE: 07/22/18 TIME: 12:12 Exam/Review of Systems Vital Signs Vitals Vital Signs Date Temp Pulse Resp B/P (MAP) Pulse Ox O2 O2 Flow FiO2 Time Delivery Rate 07/22/18 98.3 77 18 145/65 100 11:26 (91) 07/21/18 Room Air 19:20 Intake and Output 07/21/18 07/21/18 07/22/18 1515:00 23:00 07:00 IntakeIntake Total 1150 ml 1700 ml 650 ml OutputOutput Total 1 ml BalanceBalance 1150 ml 1699 ml 650 ml Exam Exam Review of Systems: CONSTITUTIONAL: No fevers, chills. PULMONARY: No sob CARDIOVASCULAR: No chest pain/palpitations GASTROINTESTINAL: No nausea/vomiting. GENITOURINARY: No hematuria/dysuria. MUSCULOSKELETAL: No myagias/arthalgias. PSYCHIATRIC: The patient denies depression. NEUROLOGIC: No weakness Constitutional: alert, oriented Psych: no complaints Head: normocephalic ENMT: mucosa pink and moist Neck: supple, jvd (9 cm water) Respiratory: diminished breath sounds (at bases/B) Cardiovascular: regular rate and rhythm Gastrointestinal: soft, non-tender Musculoskeletal: muscle tone (normal) Extremities: edema (none) Neurological: other (No focal deficits) Labs Result Diagram: 07/19/1839 07/19/18 0539 Results 24hrs Laboratory Tests Test 07/21/18 17:45 07/22/18 02:12 07/22/18 07:52 07/22/18 11:57 Bedside Glucose 172 144 86 96 Medications Medications Current Medications Atorvastatin Calcium (Lipitor) 40 mg QHS PO Last administered on 07/21/18 20:40; Admin Dose 40 MG; Start 07/14/18 at 21:00 Multivit/Ca Carb/ B Cmplx/FA/Prenat (Shyann-Raj) 1 tab DAILY PO Last administered on 07/22/18 08:09; Admin Dose 1 TAB; Start 07/14/18 at 09:00 Pantoprazole Sodium (Protonix) 20 mg DAILY@0600 PO Last administered on 07/21/18 06:43; Admin Dose 20 MG; Start 07/14/18 at 06:00 Tramadol HCl (Ultram) 50 mg TID PRN PO PAIN LEVEL 6-10 Last administered on 07/22/18 08:22; Admin Dose 50 MG; Start 07/13/18 at 23:30 Acetaminophen (Tylenol Tab) 650 mg Q6H PRN PO MILD PAIN(1-3)OR ELEVATED TEMP; Start 07/13/18 at 23:30 Hydralazine HCl (Apresoline) 20 mg Q6H PRN IV sbp over 170 Last administered on 07/14/18at 11:56; Admin Dose 20 MG; Start 07/13/18 at 23:30 Insulin Aspart (Novolog Insulin Pen) 3 unit WITH MEALS SC Last administered on 07/22/18 08:15; Admin Dose 3 UNIT; Start 07/14/18 at 08:00 Miscellaneous Information 1 ea NOTE XX ; Start 07/13/18 at 23:30 Glucose (Glutose) 15 gm Q15M PRN PO DECREASED GLUCOSE; Start 07/13/18 at 23:30 Glucose (Glutose) 22.5 gm Q15M PRN PO DECREASED GLUCOSE; Start 07/13/18 at 23:30 Dextrose (D50w Syringe) 25 ml Q15M PRN IV DECREASED GLUCOSE; Start 07/13/18 at 23:30 Dextrose (D50w Syringe) 50 ml Q15M PRN IV DECREASED GLUCOSE; Start 07/13/18 at 23:30 Glucagon (Glucagen) 1 mg Q15M PRN IM DECREASED GLUCOSE; Start 07/13/18 at 23:30 Glucose (Glutose) 15 gm Q15M PRN BUCCAL DECREASED GLUCOSE; Start 07/13/18 at 23:30 Ondansetron HCl (Zofran Inj) 4 mg Q4H PRN IV NAUSEA AND/OR VOMITING Last administered on 07/21/18 09:07; Admin Dose 4 MG; Start 07/14/18 at 00:30 Miscellaneous Information (Pending Santyl Order For Wound Care) This patient easley... PRN PRN XX WOUND CARE; Start 07/14/18 at 04:30 Losartan Potassium (Cozaar) 25 mg BID PO Last administered on 07/22/18 08:09; Admin Dose 25 MG; Start 07/14/18 at 21:00 Heparin Sodium (Porcine) (Heparin (5000 Units/1ml)) 5,000 unit BID SC Last administered on 07/22/18 08:26; Admin Dose 5,000 UNIT; Start 07/15/18 at 09:00 Aspirin (Ecotrin) 325 mg DAILY PO Last administered on 07/22/18 08:08; Admin Dose 325 MG; Start 07/16/18 at 09:00 Mupirocin (Bactroban) 1 applic BID TOP Last administered on 07/22/18 08:08; A dmin Dose 1 APPLIC; Start 07/16/18 at 21:00; Stop 07/23/18 at 09:01 Heparin Sodium (Porcine) (Heparin (1000 Units/ml)) 4,000 unit AFTER DIALYSIS CATHETER Last administered on 07/20/18 17:15; Admin Dose 3,400 UNIT; Start 07/17/18 at 12:30 Isosorbide Mononitrate (Imdur) 30 mg DAILY PO Last administered on 07/22/18 08:08; Admin Dose 30 MG; Start 07/18/18 at 09:00 Diagnostic Test (Pha) (Accu-Chek) 1 ea 02 XX Last administered on 07/22/18 02:17; Admin Dose 1 EA; Start 07/19/18 at 02:00 Clonidine (Catapres) 0.1 mg DAILY PO Last administered on 07/22/18 08:08; Admin Dose 0.1 MG; Start 07/19/18 at 09:00 IV Flush (NS 3 ml) 3 ml PER PROTOCOL IV ; Start 07/20/18 at 11:30 Sodium Chloride 1,000 ml @ 100 mls/hr Q10H IV Last administered on 07/22/18 02:53; Admin Dose 100 MLS/HR; Start 07/20/18 at 11:16 Morphine Sulfate (morphine) 2 mg Q2H PRN IV SEVERE PAIN LEVEL 7-10 Last administered on 07/21/18 09:07; Admin Dose 2 MG; Start 07/20/18 at 11:30 Acetaminophen/ Hydrocodone Bitart ([place] (5/325)) 1 tab Q3H PRN PO MODERATE PAIN LEVEL 4-6 Last administered on 07/21/18 12:47; Admin Dose 1 TAB; Start 07/20/18 at 11:30 Calcium/Vitamin D (Oyster Shell/ Vit-D (500/200)) 1 tab BID PO Last administere d on 07/22/18 08:09; Admin Dose 1 TAB; Start 07/20/18 at 21:00 Metoprolol Tartrate (Lopressor) 5 mg Q4H PRN IV HR > 110; Hold if SBP < 100 Last administered on 07/21/18 01:52; Admin Dose 5 MG; Start 07/21/18 at 02:00 Hydromorphone HCl (Dilaudid) 1 mg Q6H PRN IV SEVERE PAIN LEVEL 7-10; Start 07/21/18 at 10:00 Carvedilol (Coreg) 3.125 mg BID PO Last administered on 07/22/18 08:09; Admin Dose 3.125 MG; Start 07/21/18 at 21:00 Hydralazine HCl (Apresoline) 50 mg TID PO Last administered on 07/22/18 08:09; Admin Dose 50 MG; Start 07/21/18 at 13:00 JUSTICE HARRISON Jul 22, 2018 12:16
--- NOTE | 2018-07-22 12:50 | PN ---
Date/Time of Note Date/Time of Note DATE: 07/22/18 TIME: 12:48 Assessment/Plan VTE Prophylaxis Risk score (from Nsg)>0 risk: 14 SCD applied (from Ns): No SCD contraindicated: low risk/ambulating Pharmacological prophylaxis: NA/contraindicated Pharm contraindication: low risk/ambulating Lines/Catheters IV Catheter Type (from Nrs): Peripheral IV Urinary Cath still in place: No Assessment/Plan Hospital Course 78 y/o with IMPRESSION: 1. Hyperkalemia due to missed hemodialysis.due to fall 2 Acute comminuted fractures of the distal tibia and fibula that involve the distal tibiofibular joint. Distal tibia fracture extends to within 0.3 cm of the tibial plafond but does not involve the articular surface. The appearance is in keeping with an extra-articular Pilon fracture. 2. Hyponatremia. resolved 3. Metabolic acidosis. 4. Cardiomegaly and pulmonary edema. 5. Aortic atherosclerosis. 6. History of congestive heart failure. 7. History of diabetic retinopathy, nephropathy. 8. Hypoalbuminemia. 9. The patient has right lower extremity brace.with fracture 10. Left stump bruise 11 ? AFIB. 12 Congestive heart failure by x-ray, question systolic versus diastolic, likely acute on chronic given presentation. 13 elevated troponin in the setting of end-stage kidney disease Plan -Vascular studies ordered by Dr. Kowalski - hd tts - Pain control, dilaudid/- Monitor for afib - CW /losartan/imdur/clonidine and beta-mario - Pain control -GI/DVT prophylaxis Transferred [facility]. 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 Pain is better controlled. Patient was seen by Dr. Kowalski. Exam/Review of Systems Exam Vitals Vital Signs Date Temp Pulse Resp B/P (MAP) Pulse Ox O2 O2 Flow FiO2 Time Delivery Rate 07/22/18 98.3 77 18 145/65 100 11:26 (91) 07/21/18 Room Air 19:20 Intake and Output 07/21/18 07/21/18 07/22/18 1515:00 23:00 07:00 IntakeIntake Total 1150 ml 1700 ml 650 ml OutputOutput Total 1 ml BalanceBalance 1150 ml 1699 ml 650 ml Exam Constitutional: alert Head: normocephalic Eyes: nl conjunctiva, other (left eye defect) Neck: supple Respiratory: clear to auscultation Gastrointestinal: soft Right leg status post fracture Left amputation Results Results 24hrs Laboratory Tests Test 07/21/18 17:45 07/22/18 02:12 07/22/18 07:52 07/22/18 11:57 Bedside Glucose 172 144 86 96 Medications Medication Current Medications Atorvastatin Calcium (Lipitor) 40 mg QHS PO Last administered on 07/21/18at 20:40; Admin Dose 40 MG; Start 07/14/18 at 21:00 Multivit/Ca Carb/ B Cmplx/FA/Prenat (Shyann-Raj) 1 tab DAILY PO Last administered on 07/22/18 08:09; Admin Dose 1 TAB; Start 07/14/18 at 09:00 Pantoprazole Sodium (Protonix) 20 mg DAILY@0600 PO Last administered on 07/21/18at 06:43; Admin Dose 20 MG; Start 07/14/18 at 06:00 Tramadol HCl (Ultram) 50 mg TID PRN PO PAIN LEVEL 6-10 Last administered on 07/22/18at 08:22; Admin Dose 50 MG; Start 07/13/18 at 23:30 Acetaminophen (Tylenol Tab) 650 mg Q6H PRN PO MILD PAIN(1-3)OR ELEVATED TEMP; Start 07/13/18 at 23:30 Hydralazine HCl (Apresoline) 20 mg Q6H PRN IV sbp over 170 Last administered on 07/14/18at 11:56; Admin Dose 20 MG; Start 07/13/18 at 23:30 Insulin Aspart (Novolog Insulin Pen) 3 unit WITH MEALS SC Last administered on 07/22/18at 12:07; Admin Dose 3 UNIT; Start 07/14/18 at 08:00 Miscellaneous Information 1 ea NOTE XX ; Start 07/13/18 at 23:30 Glucose (Glutose) 15 gm Q15M PRN PO DECREASED GLUCOSE; Start 07/13/18 at 23:30 Glucose (Glutose) 22.5 gm Q15M PRN PO DECREASED GLUCOSE; Start 07/13/18 at 23:30 Dextrose (D50w Syringe) 25 ml Q15M PRN IV DECREASED GLUCOSE; Start 07/13/18 at 23:30 Dextrose (D50w Syringe) 50 ml Q15M PRN IV DECREASED GLUCOSE; Start 07/13/18 at 23:30 Glucagon (Glucagen) 1 mg Q15M PRN IM DECREASED GLUCOSE; Start 07/13/18 at 23:30 Glucose (Glutose) 15 gm Q15M PRN BUCCAL DECREASED GLUCOSE; Start 07/13/18 at 23:30 Ondansetron HCl (Zofran Inj) 4 mg Q4H PRN IV NAUSEA AND/OR VOMITING Last administered on 07/21/18at 09:07; Admin Dose 4 MG; Start 07/14/18 at 00:30 Miscellaneous Information (Pending Santyl Order For Wound Care) This patient easley... PRN PRN XX WOUND CARE; Start 07/14/18 at 04:30 Losartan Potassium (Cozaar) 25 mg BID PO Last administered on 07/22/18 08:09; Admin Dose 25 MG; Start 07/14/18 at 21:00 Heparin Sodium (Porcine) (Heparin (5000 Units/1ml)) 5,000 unit BID SC Last administered on 07/22/18 08:26; Admin Dose 5,000 UNIT; Start 07/15/18 at 09:00 Aspirin (Ecotrin) 325 mg DAILY PO Last administered on 07/22/18 08:08; Admin Dose 325 MG; Start 07/16/18 at 09:00 Mupirocin (Bactroban) 1 applic BID TOP Last administered on 07/22/18 08:08; Admin Dose 1 APPLIC; Start 07/16/18 at 21:00; Stop 07/23/18 at 09:01 Heparin Sodium (Porcine) (Heparin (1000 Units/ml)) 4,000 unit AFTER DIALYSIS CATHETER Last administered on 07/20/18at 17:15; Admin Dose 3,400 UNIT; Start 07/17/18 at 12:30 Isosorbide Mononitrate (Imdur) 30 mg DAILY PO Last administered on 07/22/18 08:08; Admin Dose 30 MG; Start 07/18/18 at 09:00 Diagnostic Test (Pha) (Accu-Chek) 1 ea 02 XX Last administered on 07/22/18 02:17; Admin Dose 1 EA; Start 07/19/18 at 02:00 IV Flush (NS 3 ml) 3 ml PER PROTOCOL IV ; Start 07/20/18 at 11:30 Morphine Sulfate (morphine) 2 mg Q2H PRN IV SEVERE PAIN LEVEL 7-10 Last administered on 07/21/18 09:07; Admin Dose 2 MG; Start 07/20/18 at 11:30 Acetaminophen/ Hydrocodone Bitart ([place] (5/325)) 1 tab Q3H PRN PO MODERATE PAIN LEVEL 4-6 Last administered on 07/21/18 12:47; Admin Dose 1 TAB; Start 07/20/18 at 11:30 Calcium/Vitamin D (Oyster Shell/ Vit-D (500/200)) 1 tab BID PO Last administered on 07/22/18 08:09; Admin Dose 1 TAB; Start 07/20/18 at 21:00 Metoprolol Tartrate (Lopressor) 5 mg Q4H PRN IV HR > 110; Hold if SBP < 100 Last administered on 07/21/18 01:52; Admin Dose 5 MG; Start 07/21/18 at 02:00 Hydromorphone HCl (Dilaudid) 1 mg Q6H PRN IV SEVERE PAIN LEVEL 7-10; Start 07/21/18 at 10:00 Carvedilol (Coreg) 3.125 mg BID PO Last administered on 07/22/18 08:09; Admin Dose 3.125 MG; Start 07/21/18 at 21:00 Hydralazine HCl (Apresoline) 50 mg TID PO Last administered on 07/22/18 12:16; Admin Dose 50 MG; Start 07/21/18 at 13:00 Clonidine (Catapres) 0.1 mg BID PO ; Start 07/22/18 at 21:00 ADAM DUARTE MD Jul 22, 2018 12:50
[2018-07-22] MEDS: morphine 2 MG INJ IV PRN ×2 (13:48→22:25)
[2018-07-22] MEDS: ATORVASTATIN 40 MG TAB PO SCH (21:04)
[2018-07-23] VITALS (20 sets, daily range): BP systolic 96–157; BP diastolic 37–89; PULSE 64–111; RESP 17–20
[2018-07-23] MEDS: ACCU-CHEK XX SCH (02:00)
[2018-07-23] MEDS: morphine LIQ (10 MG/5 ML) CUP PO PRN ×2 (03:32→11:21)
[2018-07-23] MEDS: PANTOPRAZOLE SODIUM 20 MG TABEC PO SCH (05:36)
[2018-07-23] MEDS: INSULIN ASPART [NOVOLOG] 3 ML PEN SC SCH ×4 (07:35→17:35)
[2018-07-23] MEDS: HEPARIN 5,000 UNIT/1 ML VIAL SC SCH ×2 (08:38→22:44)
[2018-07-23] MEDS: MULTIVIT/CA CARB/B CMPLX/FA TAB PO SCH (08:39)
[2018-07-23] MEDS: CALCIUM/VITAMIN D (500/200) TAB PO SCH ×2 (08:39→22:42)
[2018-07-23] MEDS: ASPIRIN (EC) 325 MG TAB PO SCH (08:39)
[2018-07-23] MEDS: BALSAM PERU/CASTOR OIL 60 GM TUBE TOP SCH ×2 (08:40→21:00)
[2018-07-23] MEDS: MUPIROCIN 2% 22 GM OINT TOP SCH (08:40)
[2018-07-23] MEDS: HYDROmorphONE 1 MG/ML SYG IV PRN ×2 (08:45→18:33)
[2018-07-23] MEDS: ISOSORBIDE MONONITRATE(SR)30 MG TAB PO SCH (09:00)
[2018-07-23] MEDS: LOSARTAN 25 MG TAB PO SCH ×2 (09:00→21:00)
--- NOTE | 2018-07-23 10:46 | CONS ---
Consult Date/Type/Reason Admit Date/Time Jul 13, 2018 at 21:32 Initial Consult Date Requesting Provider: ADAM DUARTE MD Date/Time of Note DATE: 07/23/18 TIME: 10:45 Subjective NO acute events - con't to recover - off tele - no CP now - feels better now. ROS: No fever, no chills, no nausea, no vomiting, no diarrhea/constipation No recent weight changes No chest pain, no PND, no orthopnea + fatigue, better now No dizziness, blurred vision No thirst, no heat or cold intolerance Objective Vitals Vital Signs Date Temp Pulse Resp B/P (MAP) Pulse Ox O2 O2 Flow FiO2 Time Delivery Rate 07/23/18 98.1 89 18 127/71 99 07:59 (89) 07/21/18 Room Air 19:20 Intake and Output 07/22/18 07/22/18 07/23/18 1515:00 23:00 07:00 IntakeIntake Total 320 ml 240 ml BalanceBalance 320 ml 240 ml Exam General: WN/WD/NAD, AOx 2-3 HEENT: Unicetric/atraumatic/EOMI (follows commands) NECK: JVD elevated, no thyromegaly Lymph: no lymphadenopathy HEART: regular with no S3, II/ systolic murmur at apex, PMI L LUNGS: Coarse sounds ABD: soft, NT, ND, +BS : Intact Neuro: non focal SKIN: chronic changes EXT: trace edema Results/Medications Result Diagram: 07/19/18 0539 07/23/18 0558 Results 24 hrs Laboratory Tests Test 07/22/18 11:57 07/22/18 17:20 07/23/18 05:58 07/23/18 07:49 Bedside Glucose 96 85 110 Sodium Level 138 Potassium Level 3.9 Chloride Level 106 Carbon Dioxide Level 26 Anion Gap 6 Blood Urea Nitrogen 28 H Creatinine 3.04 H Est Glomerular Filtrat Rate mL/min Glucose Level 102 Calcium Level 8.2 L Home Meds Reported Medications Atorvastatin* (Atorvastatin*) 40 Mg Tablet, 40 MG PO QHS, #30 TAB 07/13/18 Carvedilol* (Carvedilol*) 3.125 Mg Tablet, 3.125 MG PO BID, #60 TAB 07/13/18 Tramadol HCl (Tramadol HCl) 50 Mg Tablet, 50 MG PO TID PRN for PAIN LEVEL 6-10, #90 TAB 07/13/18 Multivit/Ca Carb/B Cmplx/Fa* (Shyann-Raj*) 1 Tab Tab, 1 TAB PO DAILY, TAB 07/13/18 Isosorbide Mononitrate* (Isosorbide Mononitrate*) 60 Mg Tab.er.24h, 60 MG PO DAILY, TAB 07/13/18 Pantoprazole* (Protonix*) 20 Mg Tablet.dr, 20 MG PO DAILY, TAB 07/13/18 Clonidine Hcl* (Clonidine Hcl*) 0.1 Mg Tab, 0.1 MG PO BID, TAB 07/13/18 Aspirin (Aspir-Low) 81 Mg Tablet.dr, 81 MG PO DAILY 07/13/18 Medications Current Medications Atorvastatin Calcium (Lipitor) 40 mg QHS PO Last administered on 07/22/18at 21:04; Admin Dose 40 MG; Start 07/14/18 at 21:00 Multivit/Ca Carb/ B Cmplx/FA/Prenat (Shyann-Raj) 1 tab DAILY PO Last administered on 07/23/18at 08:39; Admin Dose 1 TAB; Start 07/14/18 at 09:00 Pantoprazole Sodium (Protonix) 20 mg DAILY@0600 PO Last administered on 07/23/18at 05:36; Admin Dose 20 MG; Start 07/14/18 at 06:00 Tramadol HCl (Ultram) 50 mg TID PRN PO PAIN LEVEL 6-10 Last administered on 07/22/18at 08:22; Admin Dose 50 MG; Start 07/13/18 at 23:30 Acetaminophen (Tylenol Tab) 650 mg Q6H PRN PO MILD PAIN(1-3)OR ELEVATED TEMP; Start 07/13/18 at 23:30 Hydralazine HCl (Apresoline) 20 mg Q6H PRN IV sbp over 170 Last administered on 07/14/18at 11:56; Admin Dose 20 MG; Start 07/13/18 at 23:30 Insulin Aspart (Novolog Insulin Pen) 3 unit WITH MEALS SC Last administered on 07/22/18at 12:07; Admin Dose 3 UNIT; Start 07/14/18 at 08:00 Miscellaneous Information 1 ea NOTE XX ; Start 07/13/18 at 23:30 Glucose (Glutose) 15 gm Q15M PRN PO DECREASED GLUCOSE; Start 07/13/18 at 23:30 Glucose (Glutose) 22.5 gm Q15M PRN PO DECREASED GLUCOSE; Start 07/13/18 at 23:30 Dextrose (D50w Syringe) 25 ml Q15M PRN IV DECREASED GLUCOSE; Start 07/13/18 at 23:30 Dextrose (D50w Syringe) 50 ml Q15M PRN IV DECREASED GLUCOSE; Start 07/13/18 at 23:30 Glucagon (Glucagen) 1 mg Q15M PRN IM DECREASED GLUCOSE; Start 07/13/18 at 23:30 Glucose (Glutose) 15 gm Q15M PRN BUCCAL DECREASED GLUCOSE; Start 07/13/18 at 23:30 Ondansetron HCl (Zofran Inj) 4 mg Q4H PRN IV NAUSEA AND/OR VOMITING Last administered on 07/21/18 09:07; Admin Dose 4 MG; Start 07/14/18 at 00:30 Miscellaneous Information (Pending [facility] Order For Wound Care) This patient easley... PRN PRN XX WOUND CARE; Start 07/14/18 at 04:30 Losartan Potassium (Cozaar) 25 mg BID PO Last administered on 07/22/18 21:06; Admin Dose 25 MG; Start 07/14/18 at 21:00 Heparin Sodium (Porcine) (Heparin (5000 Units/1ml)) 5,000 unit BID SC Last administered on 07/23/18 08:38; Admin Dose 5,000 UNIT; Start 07/15/18 at 09:00 Aspirin (Ecotrin) 325 mg DAILY PO Last administered on 07/23/18 08:39; Admin Dose 325 MG; Start 07/16/18 at 09:00 Heparin Sodium (Porcine) (Heparin (1000 Units/ml)) 4,000 unit AFTER DIALYSIS CATHETER Last administered on 07/20/18 17:15; Admin Dose 3,400 UNIT; Start 07/17/18 at 12:30 Isosorbide Mononitrate (Imdur) 30 mg DAILY PO Last administered on 07/22/18 08 :08; Admin Dose 30 MG; Start 07/18/18 at 09:00 Diagnostic Test (Pha) (Accu-Chek) 1 ea 02 XX Last administered on 07/22/18 02:17; Admin Dose 1 EA; Start 07/19/18 at 02:00 IV Flush (NS 3 ml) 3 ml PER PROTOCOL IV ; Start 07/20/18 at 11:30 Acetaminophen/ Hydrocodone Bitart ([place] (5/325)) 1 tab Q3H PRN PO MODERATE PAIN LEVEL 4-6 Last administered on 07/21/18 12:47; Admin Dose 1 TAB; Start 07/20/18 at 11:30 Calcium/Vitamin D (Oyster Shell/ Vit-D (500/200)) 1 tab BID PO Last administered on 07/23/18 08:39; Admin Dose 1 TAB; Start 07/20/18 at 21:00 Metoprolol Tartrate (Lopressor) 5 mg Q4H PRN IV HR > 110; Hold if SBP < 100 Last administered on 07/21/18 01:52; Admin Dose 5 MG; Start 07/21/18 at 02:00 Hydromorphone HCl (Dilaudid) 1 mg Q6H PRN IV SEVERE PAIN LEVEL 7-10 Last administered on 07/23/18 08:45; Admin Dose 1 MG; Start 07/21/18 at 10:00 Carvedilol (Coreg) 3.125 mg BID PO Last administered on 07/22/18 21:05; Admin Dose 3.125 MG; Start 07/21/18 at 21:00 Hydralazine HCl (Apresoline) 50 mg TID PO Last administered on 07/22/18 21:06; Admin Dose 50 MG; Start 07/21/18 at 13:00 Clonidine (Catapres) 0.1 mg BID PO Last administered on 07/22/18 21:05; Admin Dose 0.1 MG; Start 07/22/18 at 21:00 Morphine Sulfate (morphine) 6 mg Q2H PRN PO SEVERE PAIN LEVEL 7-10 Last administered on 07/23/18 03:32; Admin Dose 6 MG; Start 07/22/18 at 23:30 Assessment/Plan Hospital Course (Demo Recall) 1. Cardiac arrhythmia concerning for possible atrial fibrillation but on review of screen likely more consistent with sinus rhythm with frequent premature atrial contractions, possible very short run of paroxysmal atrial fibrillation. We will follow. Pt had a short episode of a. fib - bach to sinus now. 2. Abnormal electrocardiogram, assess for acute coronary syndrome - r/o Mi. 3. Hypertension, uncontrolled - con't to adjust Rx and HD. 4. History of open heart surgery - no CP now. 5. End-stage renal disease on hemodialysis. 6. Shortness of breath. 7. Congestive heart failure by x-ray, question systolic versus diastolic, likely acute on chronic given presentation. Con't to remove fluid as tolerated. 8. Diabetes mellitus- on meds, keep euglycemic. 9. Ankle fracture.- awaiting CT results. 10. Anemia. AMY GRIDER MD Jul 23, 2018 10:46
[2018-07-23] MEDS: ONDANSETRON 4 MG INJ IV PRN ×2 (10:51→16:30)
[2018-07-23] MEDS: traMADol 50 MG TAB PO PRN (14:00)
--- NOTE | 2018-07-23 16:45 | PN ---
Date/Time of Note Date/Time of Note DATE: 07/23/18 TIME: 16:45 Assessment/Plan VTE Prophylaxis Risk score (from Nsg)>0 risk: 12 SCD applied (from Ns): No SCD contraindicated: low risk/ambulating Pharmacological prophylaxis: NA/contraindicated Pharm contraindication: low risk/ambulating Lines/Catheters IV Catheter Type (from Nrs): Peripheral IV Urinary Cath still in place: No Assessment/Plan Hospital Course 78 y/o with IMPRESSION: 1. Hyperkalemia due to missed hemodialysis.due to fall 2 Acute comminuted fractures of the distal tibia and fibula that involve the distal tibiofibular joint. Distal tibia fracture extends to within 0.3 cm of the tibial plafond but does not involve the articular surface. The appearance is in keeping with an extra-articular Pilon fracture. 2. Hyponatremia. resolved 3. Metabolic acidosis. 4. Cardiomegaly and pulmonary edema. 5. Aortic atherosclerosis. 6. History of congestive heart failure. 7. History of diabetic retinopathy, nephropathy. 8. Hypoalbuminemia. 9. The patient has right lower extremity brace.with fracture 10. Left stump bruise 11 ? AFIB. 12 Congestive heart failure by x-ray, question systolic versus diastolic, likely acute on chronic given presentation. 13 elevated troponin in the setting of end-stage kidney disease 14 Epigastric pain r/o gastritis/ GB disease Plan - ct a+p - CLD - IV Protonix - Antiemetics - hd tts - Pain control, dilaudid/- Monitor for afib - CW /losartan/imdur/clonidine and beta-mario - Pain control -GI/DVT prophylaxis Result Diagram: 07/19/18 0539 07/23/18 0558 Results 24hrs Laboratory Tests Test 07/22/18 17:20 07/23/18 05:58 07/23/18 07:49 07/23/18 12:07 Bedside Glucose 85 110 154 Sodium Level 138 Potassium Level 3.9 Chloride Level 106 Carbon Dioxide Level 26 Anion Gap 6 Blood Urea Nitrogen 28 H Creatinine 3.04 H Est Glomerular Filtrat Rate mL/min Glucose Level 102 Calcium Level 8.2 L Subjective 24 Hr Interval Summary Free Text/Dictation Patient had 2 episodes of vomiting. Gastric pain Exam/Review of Systems Exam Vitals Vital Signs Date Temp Pulse Resp B/P (MAP) Pulse Ox O2 O2 Flow FiO2 Time Delivery Rate 2/12/19 92 17 123/54 96 Room Air 16:35 (77) 07/23/18 98.1 07:59 Intake and Output 07/22/18 07/22/18 07/23/18 1515:00 23:00 07:00 IntakeIntake Total 320 ml 240 ml BalanceBalance 320 ml 240 ml Exam Constitutional: alert Head: normocephalic Eyes: nl conjunctiva, other (left eye defect) Neck: supple Respiratory: clear to auscultation Gastrointestinal: soft Right leg status post fracture Left amputation Results Results 24hrs Laboratory Tests Test 07/22/18 17:20 07/23/18 05:58 07/23/18 07:49 07/23/18 12:07 Bedside Glucose 85 110 154 Sodium Level 138 Potassium Level 3.9 Chloride Level 106 Carbon Dioxide Level 26 Anion Gap 6 Blood Urea Nitrogen 28 H Creatinine 3.04 H Est Glomerular Filtrat Rate mL/min Glucose Level 102 Calcium Level 8.2 L Medications Medication Current Medications Atorvastatin Calcium (Lipitor) 40 mg QHS PO Last administered on 07/22/18at 21:04; Admin Dose 40 MG; Start 07/14/18 at 21:00 Multivit/Ca Carb/ B Cmplx/FA/Prenat (Shyann-Raj) 1 tab DAILY PO Last administered on 07/23/18at 08:39; Admin Dose 1 TAB; Start 07/14/18 at 09:00 Pantoprazole Sodium (Protonix) 20 mg DAILY@0600 PO Last administered on 07/23/18at 05:36; Admin Dose 20 MG; Start 07/14/18 at 06:00 Tramadol HCl (Ultram) 50 mg TID PRN PO PAIN LEVEL 6-10 Last administered on 07/23/18at 14:00; Admin Dose 50 MG; Start 07/13/18 at 23:30 Acetaminophen (Tylenol Tab) 650 mg Q6H PRN PO MILD PAIN(1-3)OR ELEVATED TEMP; Start 07/13/18 at 23:30 Hydralazine HCl (Apresoline) 20 mg Q6H PRN IV sbp over 170 Last administered on 07/14/18at 11:56; Admin Dose 20 MG; Start 07/13/18 at 23:30 Insulin Aspart (Novolog Insulin Pen) 3 unit WITH MEALS SC Last administered on 07/22/18 12:07; Admin Dose 3 UNIT; Start 07/14/18 at 08:00 Miscellaneous Information 1 ea NOTE XX ; Start 07/13/18 at 23:30 Glucose (Glutose) 15 gm Q15M PRN PO DECREASED GLUCOSE; Start 07/13/18 at 23:30 Glucose (Glutose) 22.5 gm Q15M PRN PO DECREASED GLUCOSE; Start 07/13/18 at 23:30 Dextrose (D50w Syringe) 25 ml Q15M PRN IV DECREASED GLUCOSE; Start 07/13/18 at 23:30 Dextrose (D50w Syringe) 50 ml Q15M PRN IV DECREASED GLUCOSE; Start 07/13/18 at 23:30 Glucagon (Glucagen) 1 mg Q15M PRN IM DECREASED GLUCOSE; Start 07/13/18 at 23:30 Glucose (Glutose) 15 gm Q15M PRN BUCCAL DECREASED GLUCOSE; Start 07/13/18 at 23:30 Ondansetron HCl (Zofran Inj) 4 mg Q4H PRN IV NAUSEA AND/OR VOMITING Last administered on 07/23/18 16:30; Admin Dose 4 MG; Start 07/14/18 at 00:30 Miscellaneous Information (Pending [facility] Order For Wound Care) This patient easley... PRN PRN XX WOUND CARE; Start 07/14/18 at 04:30 Losartan Potassium (Cozaar) 25 mg BID PO Last administered on 07/22/18 21:06; Admin Dose 25 MG; Start 07/14/18 at 21:00 Heparin Sodium (Porcine) (Heparin (5000 Units/1ml)) 5,000 unit BID SC Last administered on 07/23/18 08:38; Admin Dose 5,000 UNIT; Start 07/15/18 at 09:00 Aspirin (Ecotrin) 325 mg DAILY PO Last administered on 07/23/18 08:39; Admin Dose 325 MG; Start 07/16/18 at 09:00 Heparin Sodium (Porcine) (Heparin (1000 Units/ml)) 4,000 unit AFTER DIALYSIS CATHETER Last administered on 07/20/18 17:15; Admin Dose 3,400 UNIT; Start 07/17/18 at 12:30 Isosorbide Mononitrate (Imdur) 30 mg DAILY PO Last administered on 07/22/18 08:08; Admin Dose 30 MG; Start 07/18/18 at 09:00 Diagnostic Test (Pha) (Accu-Chek) 1 ea 02 XX Last administered on 07/22/18 02:17; Admin Dose 1 EA; Start 07/19/18 at 02:00 IV Flush (NS 3 ml) 3 ml PER PROTOCOL IV ; Start 07/20/18 at 11:30 Acetaminophen/ Hydrocodone Bitart ([place] (5/325)) 1 tab Q3H PRN PO MODERATE PAIN LEVEL 4-6 Last administered on 07/21/18 12:47; Admin Dose 1 TAB; Start 07/20/18 at 11:30 Calcium/Vitamin D (Oyster Shell/ Vit-D (500/200)) 1 tab BID PO Last administered on 07/23/18 08:39; Admin Dose 1 TAB; Start 07/20/18 at 21:00 Metoprolol Tartrate (Lopressor) 5 mg Q4H PRN IV HR > 110; Hold if SBP < 100 Last administered on 07/21/18 01:52; Admin Dose 5 MG; Start 07/21/18 at 02:00 Hydromorphone HCl (Dilaudid) 1 mg Q6H PRN IV SEVERE PAIN LEVEL 7-10 Last administered on 07/23/18 08:45; Admin Dose 1 MG; Start 07/21/18 at 10:00 Carvedilol (Coreg) 3.125 mg BID PO Last administered on 07/22/18 21:05; Admin Dose 3.125 MG; Start 07/21/18 at 21:00 Hydralazine HCl (Apresoline) 50 mg TID PO Last administered on 07/22/18 21:06; Admin Dose 50 MG; Start 07/21/18 at 13:00 Clonidine (Catapres) 0.1 mg BID PO Last administered on 07/22/18 21:05; Admin Dose 0.1 MG; Start 07/22/18 at 21:00 Morphine Sulfate (morphine) 6 mg Q2H PRN PO SEVERE PAIN LEVEL 7-10 Last administered on 07/23/18 11:21; Admin Dose 6 MG; Start 07/22/18 at 23:30 ADAM DUARTE MD Jul 23, 2018 16:45
[2018-07-23] MEDS: PANTOPRAZOLE 40 MG INJ IV SCH (18:33)
[2018-07-23] MEDS: ATORVASTATIN 40 MG TAB PO SCH (21:00)
[2018-07-23] MEDS: METOCLOPRAMIDE 10 MG INJ IV PRN (21:37)
[2018-07-23] MEDS ORDERED: HYDROmorphONE 1 MG/ML SYG IV PRN (22:00)
[2018-07-24] VITALS (72 sets, daily range): BP systolic 70–142; BP diastolic 11–76; PULSE 42–141; RESP 18–36
[2018-07-24] MEDS: ACCU-CHEK XX SCH (01:15)
[2018-07-24] MEDS: traMADol 50 MG TAB PO PRN (03:35)
[2018-07-24] MEDS: PANTOPRAZOLE 40 MG INJ IV SCH ×2 (05:22→18:00)
[2018-07-24] MEDS ORDERED: ATROPINE 1 MG/10 ML SYRINGE ONE (07:00)
[2018-07-24] MEDS ORDERED: AMIODARONE 150 MG INJ ONE (07:00)
[2018-07-24] MEDS ORDERED: EPINEPHrine 0.1 MG/ML SYG ONE ×3 (07:00)
[2018-07-24] MEDS ORDERED: CA CHLORIDE 10% 10 ML SYRINGE ONE (07:00)
[2018-07-24] MEDS ORDERED: NA BICARBONATE 8.4% 50 ML SYG ONE ×2 (07:00)
[2018-07-24] MEDS ORDERED: DEXTROSE 50% 50 ML SYRINGE ONE (07:00)
[2018-07-24] MEDS: INSULIN ASPART [NOVOLOG] 3 ML PEN SC SCH ×4 (07:35→21:55)
[2018-07-24] MEDS: ISOSORBIDE MONONITRATE(SR)30 MG TAB PO SCH (08:00)
[2018-07-24] MEDS: MULTIVIT/CA CARB/B CMPLX/FA TAB PO SCH (08:00)
[2018-07-24] MEDS: CALCIUM/VITAMIN D (500/200) TAB PO SCH ×2 (08:00→21:45)
[2018-07-24] MEDS: LOSARTAN 25 MG TAB PO SCH (08:00)
[2018-07-24] MEDS: ASPIRIN (EC) 325 MG TAB PO SCH (08:00)
[2018-07-24] MEDS: DEXTROSE 50% 50 ML SYRINGE IV PRN (08:19)
[2018-07-24] MEDS: BALSAM PERU/CASTOR OIL 60 GM TUBE TOP SCH ×2 (09:00→21:00)
[2018-07-24] MEDS ORDERED: AMIODARONE 900 MG in DEXTROSE 5% 482 ML IV STA (09:31)
--- NOTE | 2018-07-24 09:46 | QN ---
Documentation Comment I was called out of the emergency department to room 2255 for a CODE BLUE event. The patient was receiving high-quality CPR and being bagged by respiratory therapy. I immediately took over as the CODE BLUE leader and ran the code. Please see the code sheet for full details. The patient received defibrillation x2, intubation, epinephrine multiple doses, bicarb x2, amiodarone 300 mg IV, and calcium chloride. The final results of the CODE BLUE was return of spontaneous circulation. HPI: Please note the history and physical exam is limited as the patient is receiving CPR at this time. The patient is in full cardiac arrest. Physical exam: The patient is being bagged by respiratory therapy. There is no movement. GCS is 3. Endotracheal Intubation by me: Pre assessment performed. Pre-oxygenation performed with 100% oxygen RSI: Performed w/o complication or hypoxic events. Medications as ordered. Blade: MAC 4 video laryngoscope ET Tube: 7.5 cm Depth: 23 cm at the lip Intubation confirmed by colorimetric CO2, equal breath sounds, quiet over the stomach. Chest x-ray pending. Defibrillation #1: Patient required defibrillation during the CODE BLUE Technique: Biphasic defibrillation at 200 J for ventricular fibrillation Defibrillation #2: Patient required defibrillation during the CODE BLUE Technique: Biphasic defibrillation at 200 J for ventricular fibrillation JOSE C LINTON MD Jul 24, 2018 09:46
[2018-07-24] MEDS ORDERED: DOPamine-D5W 1.6 MG/ML 250 ML ONE (09:54)
[2018-07-24] MEDS ORDERED: NORepinephrine 8MG/250 ML (PMX 250 ML ONE ×2 (09:55→14:57)
--- NOTE | 2018-07-24 09:58 | QN ---
Documentation Comment I was called out of the emergency department to room 109 for a CODE BLUE. When I arrived Dr. Medina was at the bedside running the code. He relieved me of the duty at that time and said he would run this code. JOSE C LINTON MD Jul 24, 2018 09:58
[2018-07-24] MEDS ORDERED: EPINEPHRINE 4 MG in D5W 250 ML IV SCH (10:21)
--- NOTE | 2018-07-24 10:49 | PN ---
Date/Time of Note Date/Time of Note DATE: 07/24/18 TIME: 10:38 Assessment/Plan VTE Prophylaxis Risk score (from Ns)>0 risk: 17 SCD applied (from Ns): No SCD contraindicated: low risk/ambulating Pharmacological prophylaxis: NA/contraindicated Pharm contraindication: low risk/ambulating Lines/Catheters IV [facility] (from [facility]): Peripheral IV Urinary Cath still in place: No Assessment/Plan Hospital Course 78 y/o with IMPRESSION: # Cardiac arrest s/p vfib # Respiratory failure s/p intubation # Hypotension s/p shock? cardiac vs septic # Hyperkalemia due to missed hemodialysis.due to fall # Acute comminuted fractures of the distal tibia and fibula that involve the distal tibiofibular joint. Distal tibia fracture extends to within 0.3 cm of the tibial plafond but does not involve the articular surface. The appearance is in keeping with an extra-articular Pilon fracture. #. Hyponatremia. resolved #. Metabolic acidosis. # Cardiomegaly and pulmonary edema. #. Aortic atherosclerosis. #. History of congestive heart failure. # History of diabetic retinopathy, nephropathy. #. Hypoalbuminemia. # The patient has right lower extremity brace.with fracture #. Left stump bruise # ? AFIB. # Congestive heart failure by x-ray, question systolic versus diastolic, likely acute on chronic given presentation. # elevated troponin in the setting of end-stage kidney disease # Epigastric pain r/o gastritis/ GB disease> CT scan was pending Plan - S/P Code blue - IV fluids - iv abx - Cards to follow - stat labs and ABG - F/u Cardiac and pul recs - IV Protonix - FS monitoring - cw Pressor support with Levophed/ epi Result Diagram: 07/23/18 0558 Results 24hrs Laboratory Tests Test 07/23/18 12:07 07/23/18 17:24 07/23/18 17:53 07/24/18 07:48 Bedside Glucose 154 76 58 L Lipase 52 Test 07/24/18 07:50 07/24/18 07:51 07/24/18 08:12 07/24/18 08:13 Bedside Glucose 71 60 L 62 L 64 L Test 07/24/18 08:41 07/24/18 09:00 07/24/18 09:13 Bedside Glucose 111 90 86 Blood Gas Blood arterial Specimen Source Arterial Blood 07/24/2018 10:22: Date Drawn 14 AM Arterial Blood pH 7.399 (Temp corrected) Arterial Blood 38.1 pCO2 (Temp correct) Arterial Blood 123.1 H pO2 (Temp corrected) Arterial Blood 23.0 HCO3 Arterial Blood -1.6 Base Excess Arterial Blood 97.5 Oxygen Saturation Low Test N/A Arterial Blood A-Line Gas Puncture Site Arterial 0.4 Blood Carboxyhemo globin Arterial Blood 0.5 Methemoglobin Blood Gas A-a O2 551.8 H Differential Oxyhemoglobin 96.6 Percent Blood Gas 37.0 Temperature Blood Gas 20.0 Respiration Rate Blood Gas Actual 20 Respiration Rate Blood Gas VENT - AC Modality FiO2 100.0 Blood Gas Tidal 450.0 Volume Blood Gas Low 5.0 PEEP Setting Blood Gas TM Notified Whom Blood Gas 07/24/2018 10:29: Notified Time 02 AM Subjective 24 Hr Interval Summary Free Text/Dictation Called by RN for code blue, Dr Dasilva was called , pt was Vfib arrest he patient received defibrillation x2, intubation, epinephrine multiple doses, bicarb x2, amiodarone 300 mg IV, and calcium chloride. Transferred to ICU S/P Code again > spoke to family at bedside Exam/Review of Systems Exam Vitals Vital Signs Date Temp Pulse Resp B/P (MAP) Pulse Ox O2 O2 Flow FiO2 Time Delivery Rate 07/24/18 42 09:46 07/24/18 20 93/56 (68) 98 Nasal 2.0 08:52 Cannula 07/24/18 97.4 07:52 Intake and Output 07/23/18 07/23/18 07/24/18 1515:00 23:00 07:00 IntakeIntake Total 200 ml 200 ml OutputOutput Total 0 ml 1700 ml BalanceBalance 200 ml -1500 ml Exam Exam Constitutional: intubated , on pressors Head: normocephalic Eyes: nl conjunctiva, other (left eye defect) Neck: supple Respiratory: clear to auscultation Gastrointestinal: soft Right leg status post fracture Left amputation rt permcath Results Results 24hrs Laboratory Tests Test 07/23/18 12:07 07/23/18 17:24 07/23/18 17:53 07/24/18 07:48 Bedside Glucose 154 76 58 L Lipase 52 Test 07/24/18 07:50 07/24/18 07:51 07/24/18 08:12 07/24/18 08:13 Bedside Glucose 71 60 L 62 L 64 L Test 07/24/18 08:41 07/24/18 09:00 07/24/18 09:13 Bedside Glucose 111 90 86 Blood Gas Blood arterial Specimen Source Arterial Blood 07/24/2018 10:22: Date Drawn 14 AM Arterial Blood pH 7.399 (Temp corrected) Arterial Blood 38.1 pCO2 (Temp correct) Arterial Blood 123.1 H pO2 (Temp corrected) Arterial Blood 23.0 HCO3 Arterial Blood -1.6 Base Excess Arterial Blood 97.5 Oxygen Saturation Low Test N/A Arterial Blood A-Line Gas Puncture Site Arterial 0.4 Blood Carboxyhemo globin Arterial Blood 0.5 Methemoglobin Blood Gas A-a O2 551.8 H Differential Oxyhemoglobin 96.6 Percent Blood Gas 37.0 Temperature Blood Gas 20.0 Respiration Rate Blood Gas Actual 20 Respiration Rate Blood Gas VENT - AC Modality FiO2 100.0 Blood Gas Tidal 450.0 Volume Blood Gas Low 5.0 PEEP Setting Blood Gas TM Notified Whom Blood Gas 07/24/2018 10:29: Notified Time 02 AM Medications Medication Current Medications Atorvastatin Calcium (Lipitor) 40 mg QHS PO Last administered on 07/22/18 21:04; Admin Dose 40 MG; Start 07/14/18 at 21:00 Multivit/Ca Carb/ B Cmplx/FA/Prenat (Shyann-Raj) 1 tab DAILY PO Last administered on 07/23/18 08:39; Admin Dose 1 TAB; Start 07/14/18 at 09:00 Tramadol HCl (Ultram) 50 mg TID PRN PO PAIN LEVEL 6-10 Last administered on 07/24/18 03:35; Admin Dose 50 MG; Start 07/13/18 at 23:30 Acetaminophen (Tylenol Tab) 650 mg Q6H PRN PO MILD PAIN(1-3)OR ELEVATED TEMP; Start 07/13/18 at 23:30 Hydralazine HCl (Apresoline) 20 mg Q6H PRN IV sbp over 170 Last administered on 07/14/18 11:56; Admin Dose 20 MG; Start 07/13/18 at 23:30 Insulin Aspart (Novolog Insulin Pen) 3 unit WITH MEALS SC Last administered on 07/22/18 12:07; Admin Dose 3 UNIT; Start 07/14/18 at 08:00 Miscellaneous Information 1 ea NOTE XX ; Start 07/13/18 at 23:30 Glucose (Glutose) 15 gm Q15M PRN PO DECREASED GLUCOSE; Start 07/13/18 at 23:30 Glucose (Glutose) 22.5 gm Q15M PRN PO DECREASED GLUCOSE; Start 07/13/18 at 23:30 Dextrose (D50w Syringe) 25 ml Q15M PRN IV DECREASED GLUCOSE Last administered on 07/24/18 08:19; Admin Dose 25 ML; Start 07/13/18 at 23:30 Dextrose (D50w Syringe) 50 ml Q15M PRN IV DECREASED GLUCOSE; Start 07/13/18 at 23:30 Glucagon (Glucagen) 1 mg Q15M PRN IM DECREASED GLUCOSE; Start 07/13/18 at 23:30 Glucose (Glutose) 15 gm Q15M PRN BUCCAL DECREASED GLUCOSE; Start 07/13/18 at 23:30 Ondansetron HCl (Zofran Inj) 4 mg Q4H PRN IV NAUSEA AND/OR VOMITING Last administered on 07/23/18 16:30; Admin Dose 4 MG; Start 07/14/18 at 00:30 Miscellaneous Information (Pending [facility] Order For Wound Care) This patient easley... PRN PRN XX WOUND CARE; Start 07/14/18 at 04:30 Losartan Potassium (Cozaar) 25 mg BID PO Last administered on 07/22/18 21:06; Admin Dose 25 MG; Start 07/14/18 at 21:00 Heparin Sodium (Porcine) (Heparin (5000 Units/1ml)) 5,000 unit BID SC Last administered on 07/23/18 22:44; Admin Dose 5,000 UNIT; Start 07/15/18 at 09:00 Aspirin (Ecotrin) 325 mg DAILY PO Last administered on 07/23/18 08:39; Admin Dose 325 MG; Start 07/16/18 at 09:00 Heparin Sodium (Porcine) (Heparin (1000 Units/ml)) 4,000 unit AFTER DIALYSIS CATHETER Last administered on 07/20/18at 17:15; Admin Dose 3,400 UNIT; Start 07/17/18 at 12:30 Isosorbide Mononitrate (Imdur) 30 mg DAILY PO Last administered on 07/22/18 08:08; Admin Dose 30 MG; Start 07/18/18 at 09:00 Diagnostic Test (Pha) (Accu-Chek) 1 ea 02 XX Last administered on 07/22/18 02:17; Admin Dose 1 EA; Start 07/19/18 at 02:00 IV Flush (NS 3 ml) 3 ml PER PROTOCOL IV ; Start 07/20/18 at 11:30 Acetaminophen/ Hydrocodone Bitart ([place] (5/325)) 1 tab Q3H PRN PO MODERATE PAIN LEVEL 4-6 Last administered on 07/21/18 12:47; Admin Dose 1 TAB; Start 07/20/18 at 11:30 Calcium/Vitamin D (Oyster Shell/ Vit-D (500/200)) 1 tab BID PO Last admi nistered on 07/23/18 22:42; Admin Dose 1 TAB; Start 07/20/18 at 21:00 Metoprolol Tartrate (Lopressor) 5 mg Q4H PRN IV HR > 110; Hold if SBP < 100 Last administered on 07/21/18 01:52; Admin Dose 5 MG; Start 07/21/18 at 02:00 Carvedilol (Coreg) 3.125 mg BID PO Last administered on 07/22/18 21:05; Admin Dose 3.125 MG; Start 07/21/18 at 21:00 Hydralazine HCl (Apresoline) 50 mg TID PO Last administered on 07/22/18 21:06; Admin Dose 50 MG; Start 07/21/18 at 13:00 Clonidine (Catapres) 0.1 mg BID PO Last administered on 07/22/18 21:05; Admin Dose 0.1 MG; Start 07/22/18 at 21:00 Pantoprazole (Protonix Iv) 40 mg BID@,18 IV Last administered on 07/23/18 18:33; Admin Dose 40 MG; Start 07/23/18 at 18:00 Hydromorphone HCl (Dilaudid) 1 mg Q4H PRN IV SEVERE PAIN LEVEL 7-10 Last administered on 07/23/18 21:37; Admin Dose 1 MG; Start 07/23/18 at 22:00 Metoclopramide HCl (Reglan) 10 mg Q6H PRN IV NAUSEA AND/OR VOMITING Last administered on 07/23/18at 21:37; Admin Dose 10 MG; Start 07/23/18 at 20:30 Epinephrine 4 mg/ Dextrose 250 ml @ 0 mls/hr TITRATE IV ; Start 07/24/18 at 10:21 ADAM DUARTE MD Jul 24, 2018 10:48
[2018-07-24] MEDS ORDERED: SOD CHLORIDE 0.9% 1,000 ML IV ONE (11:00)
[2018-07-24] MEDS: HEPARIN 5,000 UNIT/1 ML VIAL SC SCH ×2 (11:00→20:09)
[2018-07-24] MEDS: NORepinephrine 8MG/250 ML (PMX 250 ML IV SCH ×2 (11:00→15:00)
[2018-07-24] MEDS ORDERED: DEXTROSE 5%-0.9% NACL 1,000 ML IV SCH (11:00)
[2018-07-24] MEDS: CEFTRIAXONE 1 GM/50 ML (PMX) 50 ML IVPB SCH (11:30)
[2018-07-24] MEDS: DEXTROSE 5%-0.9% NACL 1,000 ML IV SCH (11:30)
[2018-07-24] MEDS ORDERED: SOD CHLORIDE 0.9% 250 ML IV* ONE (12:13)
--- NOTE | 2018-07-24 12:42 | CONS ---
Assessment/Plan Assessment/Plan Hospital Course (Demo Recall) IMP: 1. Preoperative for LE ORIF-NL EF by echo with mod-sev TR. Lexiscan with NL EF and partially reversible inferior wall defect. Thus patient has no cardiac contraindication to proceeding to OR on current medications but at moderate to high risk. Now post-op s/p ORIF 2.Positive troponin 3.BRadycardia to 40's/stable BP. S Misael- now improved with decrease in dose of clonidine and having short runs of tachycardia/SVT. ? SSS/tachy-misael, xurrently stable HR 4.HTN-uncontrolled at this time 5.ankle fracture 6.ESRD on HD 7. TR-mod-sev 8. ? sick euthyroid-elevated TSH and Free t4 9. Patient with PEA and VFA this am requiring ACLS and intubation protocol on onset during HD 10. anemia-acute drop. ? where bleeding,internal given abd pain Recc -ICU -Continue levophed -Contnue amiodarone -continue vent support -Hold ASA -transfuse PRBC's Consultation Date/Type/Reason Admit Date/Time Jul 13, 2018 at 21:32 Initial Consult Date 07/16/18 Type of Consult Cardiology Reason for Consultation positive troponin/cardiac arrest Requesting Provider: ADAM DUARTE MD Date/Time of Note DATE: 07/24/18 TIME: 12:36 Exam/Review of Systems Vital Signs Vitals Vital Signs Date Temp Pulse Resp B/P (MAP) Pulse Ox O2 O2 Flow FiO2 Time Delivery Rate 07/24/18 42 09:46 07/24/18 20 93/56 (68) 98 Nasal 2.0 08:52 Cannula 07/24/18 97.4 07:52 Intake and Output 07/23/18 07/23/18 07/24/18 1414:59 22:59 06:59 IntakeIntake Total 200 ml 200 ml OutputOutput Total 0 ml 1700 ml BalanceBalance 200 ml -1500 ml Exam Exam Review of Systems: CONSTITUTIONAL: No fevers, chills. PULMONARY: No sob CARDIOVASCULAR: No chest pain/palpitations GASTROINTESTINAL: No nausea/vomiting. GENITOURINARY: No hematuria/dysuria. MUSCULOSKELETAL: No myagias/arthalgias. PSYCHIATRIC: The patient denies depression. NEUROLOGIC: No weakness Constitutional: other (intubated) Psych: no complaints Head: normocephalic ENMT: mucosa pink and moist Neck: supple, jvd (9 cm water) Respiratory: diminished breath sounds Cardiovascular: regular rate and rhythm Gastrointestinal: soft, non-tender Musculoskeletal: muscle weakness (generalized) Extremities: other (s/p LE amputtaion) Neurological: other (encephalopathic) Labs Result Diagram: 07/24/18 1105 07/24/18 1105 Results 24hrs Laboratory Tests Test 07/23/18 17:24 07/23/18 17:53 07/24/18 07:48 07/24/18 07:50 Lipase 52 Bedside Glucose 76 58 L 71 Test 07/24/18 07:51 07/24/18 08:12 07/24/18 08:13 07/24/18 08:41 Bedside Glucose 60 L 62 L 64 L 111 Test 07/24/18 09:00 07/24/18 09:13 07/24/18 10:15 07/24/18 10:24 Blood Gas Blood arterial Specimen Source Arterial Blood 07/24/2018 10:22: Date Drawn 14 AM Arterial Blood pH 7.399 (Temp corrected) Arterial Blood 38.1 pCO2 (Temp correct) Arterial Blood 123.1 H pO2 (Temp corrected) Arterial Blood 23.0 HCO3 Arterial Blood -1.6 Base Excess Arterial Blood 97.5 Oxygen Saturation Low Test N/A Arterial Blood A-Line Gas Puncture Site Arterial 0.4 Blood Carboxyhemo globin Arterial Blood 0.5 Methemoglobin Blood Gas A-a O2 551.8 H Differential Oxyhemoglobin 96.6 Percent Blood Gas 37.0 Temperature Blood Gas 20.0 Respiration Rate Blood Gas Actual 20 Respiration Rate Blood Gas VENT - AC Modality FiO2 100.0 Blood Gas Tidal 450.0 Volume Blood Gas Low 5.0 PEEP Setting Blood Gas TM Notified Whom Blood Gas 07/24/2018 10:29: Notified Time 02 AM Bedside Glucose 90 86 53 L 105 Test 07/24/18 11:05 07/24/18 11:39 White Blood Count 19.9 #H Red Blood Count 2.01 #L Hemoglobin 6.5 #*L Hematocrit 21.2 #L Mean Corpuscular 105.5 H Volume Mean Corpuscular 32.3 Hemoglobin Mean Corpuscular 30.7 L Hemoglobin Concen t Red Cell 18.2 H Distribution Width Platelet Count 173 # Mean Platelet 11.2 H Volume Immature 1.200 H Granulocytes % Segmented 72 Neutrophils % (Manual) Band Neutrophils 24 H % (Manual) Lymphocytes % 2 L (Manual) Eosinophils % 1 (Manual) Metamyelocytes % 1 H (manual) Nucleated Red 1 H Blood Cells % Immature 0.240 H Granulocytes # Neutrophils # 15.3 H (Manual) Band Neutrophils 4.7 H # Lymphocytes 0.3 L (Manual) Metamyelocytes # 0.1 H Platelet Estimate NORMAL Polychromasia 2+ Poikilocytosis 2+ Anisocytosis 1+ Macrocytosis 1+ Ovalocytes 1+ Sodium Level 144 Potassium Level 3.7 Chloride Level 107 Carbon Dioxide 21 Level Anion Gap 16 #H Blood Urea 13 # Nitrogen Creatinine 1.53 #H Est Glomerular Filtrat Rate mL/min Glucose Level 116 Calcium Level 8.1 L Bedside Glucose 118 Medications Medications Current Medications Atorvastatin Calcium (Lipitor) 40 mg QHS PO Last administered on 07/22/18 21:04; Admin Dose 40 MG; Start 07/14/18 at 21:00 Multivit/Ca Carb/ B Cmplx/FA/Prenat (Shyann-Raj) 1 tab DAILY PO Last administered on 07/23/18at 08:39; Admin Dose 1 TAB; Start 07/14/18 at 09:00 Tramadol HCl (Ultram) 50 mg TID PRN PO PAIN LEVEL 6-10 Last administered on 07/24/18at 03:35; Admin Dose 50 MG; Start 07/13/18 at 23:30 Acetaminophen (Tylenol Tab) 650 mg Q6H PRN PO MILD PAIN(1-3)OR ELEVATED TEMP; Start 07/13/18 at 23:30 Hydralazine HCl (Apresoline) 20 mg Q6H PRN IV sbp over 170 Last administered on 07/14/18at 11:56; Admin Dose 20 MG; Start 07/13/18 at 23:30 Insulin Aspart (Novolog Insulin Pen) 3 unit WITH MEALS SC Last administered on 07/22/18at 12:07; Admin Dose 3 UNIT; Start 07/14/18 at 08:00 Miscellaneous Information 1 ea NOTE XX ; Start 07/13/18 at 23:30 Glucose (Glutose) 15 gm Q15M PRN PO DECREASED GLUCOSE; Start 07/13/18 at 23:30 Glucose (Glutose) 22.5 gm Q15M PRN PO DECREASED GLUCOSE; Start 07/13/18 at 23:30 Dextrose (D50w Syringe) 25 ml Q15M PRN IV DECREASED GLUCOSE Last administered on 07/24/18 08:19; Admin Dose 25 ML; Start 07/13/18 at 23:30 Dextrose (D50w Syringe) 50 ml Q15M PRN IV DECREASED GLUCOSE; Start 07/13/18 at 23:30 Glucagon (Glucagen) 1 mg Q15M PRN IM DECREASED GLUCOSE; Start 07/13/18 at 23:30 Glucose (Glutose) 15 gm Q15M PRN BUCCAL DECREASED GLUCOSE; Start 07/13/18 at 23:30 Ondansetron HCl (Zofran Inj) 4 mg Q4H PRN IV NAUSEA AND/OR VOMITING Last administered on 07/23/18 16:30; Admin Dose 4 MG; Start 07/14/18 at 00:30 Miscellaneous Information (Pending Santyl Order For Wound Care) This patient easley... PRN PRN XX WOUND CARE; Start 07/14/18 at 04:30 Losartan Potassium (Cozaar) 25 mg BID PO Last administered on 07/22/18 21:06; Admin Dose 25 MG; Start 07/14/18 at 21:00 Heparin Sodium (Porcine) (Heparin (5000 Units/1ml)) 5,000 unit BID SC Last administered on 07/23/18 22:44; Admin Dose 5,000 UNIT; Start 07/15/18 at 09:00 Aspirin (Ecotrin) 325 mg DAILY PO Last administered on 07/23/18 08:39; Admin Dose 325 MG; Start 07/16/18 at 09:00 Heparin Sodium (Porcine) (Heparin (1000 Units/ml)) 4,000 unit AFTER DIALYSIS CATHETER Last administered on 07/20/18 17:15; Admin Dose 3,400 UNIT; Start 07/17/18 at 12:30 Isosorbide Mononitrate (Imdur) 30 mg DAILY PO Last administered on 07/22/18 08:08; Admin Dose 30 MG; Start 07/18/18 at 09:00 Diagnostic Test (Pha) (Accu-Chek) 1 ea 02 XX Last administered on 07/22/18 02:17; Admin Dose 1 EA; Start 07/19/18 at 02:00 IV Flush (NS 3 ml) 3 ml PER PROTOCOL IV ; Start 07/20/18 at 11:30 Acetaminophen/ Hydrocodone Bitart (Jackson (5/325)) 1 tab Q3H PRN PO MODERATE PAIN LEVEL 4-6 Last administered on 07/21/18 12:47; Admin Dose 1 TAB; Start 07/20/18 at 11:30 Calcium/Vitamin D (Oyster Shell/ Vit-D (500/200)) 1 tab BID PO Last administered on 07/23/18 22:42; Admin Dose 1 TAB; Start 07/20/18 at 21:00 Metoprolol Tartrate (Lopressor) 5 mg Q4H PRN IV HR > 110; Hold if SBP < 100 Last administered on 07/21/18 01:52; Admin Dose 5 MG; Start 07/21/18 at 02:00 Carvedilol (Coreg) 3.125 mg BID PO Last administered on 07/22/18 21:05; Admin Dose 3.125 MG; Start 07/21/18 at 21:00 Hydralazine HCl (Apresoline) 50 mg TID PO Last administered on 07/22/18 21:06; Admin Dose 50 MG; Start 07/21/18 at 13:00 Clonidine (Catapres) 0.1 mg BID PO Last administered on 07/22/18 21:05; Admin Dose 0.1 MG; Start 07/22/18 at 21:00 Pantoprazole (Protonix Iv) 40 mg BID@06,18 IV Last administered on 07/23/18 18:33; Admin Dose 40 MG; Start 07/23/18 at 18:00 Hydromorphone HCl (Dilaudid) 1 mg Q4H PRN IV SEVERE PAIN LEVEL 7-10 Last administered on 07/23/18 21:37; Admin Dose 1 MG; Start 07/23/18 at 22:00 Metoclopramide HCl (Reglan) 10 mg Q6H PRN IV NAUSEA AND/OR VOMITING Last administered on 07/23/18 21:37; Admin Dose 10 MG; Start 07/23/18 at 20:30 Epinephrine 4 mg/ Dextrose 250 ml @ 0 mls/hr TITRATE IV ; Start 07/24/18 at 10:21 Dextrose/Sodium Chloride 1,000 ml @ 70 mls/hr [id number] IV Last administered on 07/24/18at 11:31; Admin Dose 70 MLS/HR; Start 07/24/18 at 11:00 Ceftriaxone Sodium 50 ml @ 100 mls/hr Q24H IVPB Last administered on 07/24/18at 11:30; Admin Dose 100 MLS/HR; Start 07/24/18 at 11:00 Sodium Chloride 250 ml @ 0 mls/hr Q0M ONCE IV* ; Start 07/24/18 at 12:13; Stop 07/24/18 at 12:14; Status UNV Sodium Chloride 1,000 ml @ 1,000 mls/hr Q1H ONCE IV ; Start 07/24/18 at 11:00; Stop 07/24/18 at 11:59; Status UNV JUSTICE HARRISON Jul 24, 2018 12:42
--- NOTE | 2018-07-24 13:08 | CONS ---
DATE OF ADMISSION: 07/13/2018 DATE OF CONSULTATION: TYPE OF CONSULTATION: REASON FOR CONSULTATION: Cardiopulmonary arrest, respiratory and critical care management. HISTORY OF PRESENT ILLNESS: This is a 78-year-old lady with significant vascular disease, coronary a rtery disease. She was undergoing hemodialysis this morning prior to transfer to [facility], became unresponsive, found to be in cardiopulmonary arrest, underwent defibrillation and epine phrine push per ACLS protocol with return of circulation and transferred to the intensive care unit. Here she had further 2 episodes of cardiopulmonary arrest. Continue ACS protocol requiring continue d epinephrine push and now epinephrine drip. Central line and arterial line were placed. Patient no w has return of circulation. Continue supportive care. Family considering goals of care. PAST MEDICAL HISTORY: 1. Peripheral vascular disease status post amputation. 2. Coronary artery disease. 3. End-stage renal failure on hemodialysis. 4. Prior remote history of alcohol abuse per chart. SYSTEMS REVIEW: A 12-point review of systems unable to perform. PHYSICAL EXAMINATION: GENERAL: Chronically ill appearing lady on mechanical ventilation. VITAL SIGNS: Temperature 98, pulse is 100, blood pressure 100/50, and O2 saturation 96%, FIO2 of 100 %. NECK: Supple. No JVD or lymphadenopathy. CARDIAC: S1, S2, no added sounds or murmurs. CHEST: Diminished air entry bilaterally. ABDOMEN: Soft, nontender. No guarding or rebound. EXTREMITIES: No cyanosis, clubbing or edema. NEUROLOGIC: Unable to assess. LABORATORIES: White count post-arrest 19.9, hemoglobin 6.5, platelets of 173. BUN and creatinine pe nding. INR was 1.03 on admission. Arterial blood gas this morning on post-arrest, pH 7.39, pCO2 38, pO2 123, chest x-ray post-intubation is pending. IMPRESSION AND PLAN: 1. Cardiopulmonary arrest. 2. Multiple cardiopulmonary arrests and prolonged hypotension with likely significant ischemic brain injury. 3. End-stage renal failure on hemodialysis. 4. Possible aspiration pneumonia. 5. History of severe peripheral vascular disease. The patient will require: 1. Vasopressor. 2. Mechanical ventilation. 3. Broad-spectrum antibiotic coverage for possible aspiration. 4. Discuss goals of care with family at bedside which I did do. Currently, they wish to continue al l current measures. 5. DVT and GI prophylaxis. Dictated By: DEVAN ROME/NTS Conf#: [id number] DID#: [id number] CC: SAM KRUEGER MD;*End*
--- NOTE | 2018-07-24 13:10 | SP ---
DATE OF PROCEDURE: PROCEDURE: Arterial line placement. INDICATION: Hypotension, cardiopulmonary arrest. DESCRIPTION OF PROCEDURE: Right femoral site was cleaned and prepped in usual sterile manner. Using large bore needle, femoral artery was located. Following passage of wire, catheter passed over guid ewire into the femoral artery without complication. The patient had adequate waveform. Blood return was pulsatile. She tolerated the procedure without complication. Dictated By: DEVNA MIDDLETON MD SV/NTS Conf#: [id number] DID#: [id number] CC: GLORIA TURNER MD; SAM KRUEGER MD;*EndCC*
--- NOTE | 2018-07-24 13:10 | SP ---
DATE OF PROCEDURE: PROCEDURE: Central line placement. INDICATION: Septic shock. No IV access. DESCRIPTION OF PROCEDURE: Right femoral site was cleaned and prepped in usual sterile manner. Using ultrasound guidance, femoral vein was located. Femoral line was placed using Seldinger technique wi thout complication. Dictated By: DEVAN MIDDLETON MD SV/NTS Conf#: [id number] DID#: [id number] CC: SAM KRUEGER MD;*EndCC*
[2018-07-24] MEDS: PANTOPRAZOLE IV 80 MG in SOD CHLORIDE 0.9% 100 ML IV SCH (16:30)
--- NOTE | 2018-07-24 18:36 | CONS ---
DATE OF ADMISSION: 07/13/2018 DATE OF CONSULTATION: HISTORY OF PRESENT ILLNESS: The patient is a 78-year-old female with end-stage renal disease, hypert ension, diabetes mellitus, coronary artery disease, CHF, diabetic neuropathy, left-sided blindness, l eft below-knee amputation, had a right ankle comminuted fracture, was seen by Dr. Boston. However, rika ent, when she was on the floor, about to go home, found to be bradycardic, had a PEA and VF requiring ACLS, intubation and transferred to intensive care unit. The hemoglobin had significantly dropped f rom 10 to 6. Repeat hemoglobin also was the same so GI consult was called in for possible GI bleedin g. She had one episode of hematemesis. There was no evidence of aspiration. The patient is intubat ed and no further information could be obtained from her. PAST MEDICAL HISTORY: End-stage renal disease, diabetes mellitus, left below-knee amputation, left e ye blindness, diabetic neuropathy, coronary artery disease and now cardiac arrest secondary to bradyc ardia and PEA. ALLERGIES: NEGATIVE. FAMILY HISTORY: Nothing contributory. SOCIAL HISTORY: Negative. MEDICATIONS: All the medications reviewed. REVIEW OF SYSTEMS: Unable to do it. PHYSICAL EXAMINATION: GENERAL: Is uncomfortable, not in distress. VITAL SIGNS: Stable. HEENT: The patient is intubated. CARDIOVASCULAR SYSTEM: No murmur. LUNGS: Air entry good. ABDOMEN: Benign. EXTREMITIES: No edema. CENTRAL NERVOUS SYSTEM: The patient is sedated. LABORATORY DATA: Her hematocrit which was 33 dropped down to 21.4. BUN is 13, creatinine is 1.53. INR is 1.1. Hepatitis surface antigen negative. IMPRESSION: 1. Anemia, rule out gastrointestinal bleeding. 2. Status post pulseless electrical activity period and cardiac arrest. 3. Ventilator-dependent respiratory failure. 4. End-stage renal disease, on dialysis. 5. 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 6. Left stump bruises. 7. Ankle fracture. PLAN: To continue PPI. Transfuse 1 unit of packed RBC. We will pass the NG tube connected to inter mittent suction, and if patient is stable, then we will proceed with EGD. Dictated By: GLORIA ALLEN/RENETTA Conf#: [id number] DID#: [id number] CC: SAM KRUEGER MD;*End*
[2018-07-24] MEDS ORDERED: AMIODARONE 900 MG in DEXTROSE 5% 482 ML IV SCH (19:30)
[2018-07-24] MEDS ORDERED: DIGOXIN 500 MCG INJ IV ONE (19:30)
[2018-07-24] MEDS ORDERED: PHENYLephrine 80 MG in DEXTROSE 5% 242 ML IV SCH (20:00)
[2018-07-24] MEDS ORDERED: PHENYLephrine 20MG IN 250 ML 250 ML IV SCH (20:00)
[2018-07-24] MEDS: ATORVASTATIN 40 MG TAB PO SCH (21:45)
[2018-07-24] MEDS: PHENYLephrine 80 MG in DEXTROSE 5% 242 ML IV SCH (22:31)
[2018-07-25] VITALS (104 sets, daily range): BP systolic 56–139; BP diastolic 26–73; PULSE 65–119; RESP 10–34
[2018-07-25] MEDS: NORepinephrine 8MG/250 ML (PMX 250 ML IV SCH (00:42)
[2018-07-25] MEDS: INSULIN ASPART [NOVOLOG] 3 ML PEN SC SCH ×6 (01:06→21:30)
[2018-07-25] MEDS: morphine 2 MG INJ IV PRN ×2 (01:40→03:55)
[2018-07-25] MEDS: ACCU-CHEK XX SCH (02:00)
[2018-07-25] MEDS: DEXTROSE 5%-0.9% NACL 1,000 ML IV SCH (02:15)
[2018-07-25] MEDS: PANTOPRAZOLE IV 80 MG in SOD CHLORIDE 0.9% 100 ML IV SCH ×3 (02:15→22:57)
--- NOTE | 2018-07-25 09:28 | PN ---
Date/Time of Note Date/Time of Note DATE: 07/25/18 TIME: 09:27 Assessment/Plan VTE Prophylaxis Risk score (from Ns)>0 risk: 20 [place] [facility] [place] contraindicated: low risk/ambulating Pharmacological prophylaxis: NA/contraindicated Pharm contraindication: low risk/ambulating Lines/Catheters IV Catheter Type (from [facility]): medial central Urinary Cath still in place: Yes Reason Cath still needed: urinary retention Assessment/Plan Hospital Course 78 y/o with IMPRESSION: # Cardiac pulmonary arrest s/p vfib # Respiratory failure s/p intubation # Hypotension s/p shock? cardiac vs septic #LE me anemia likely to secondary to GI bleed H&H stable status post unit 2 units of blood # Hyperkalemia due to missed hemodialysis.due to fall # Acute comminuted fractures of the distal tibia and fibula that involve the distal tibiofibular joint. Distal tibia fracture extends to within 0.3 cm of the tibial plafond but does not involve the articular surface. The appearance is in keeping with an extra-articular Pilon fracture. #. Hyponatremia. resolved #. Metabolic acidosis. # Cardiomegaly and pulmonary edema. #. Aortic atherosclerosis. #. History of congestive heart failure. # History of diabetic retinopathy, nephropathy. #. Hypoalbuminemia. # The patient has right lower extremity brace.with fracture #. Left stump bruise now noticed to have a fracture on the left hip on the x- rays # ? AFIB. # Congestive heart failure by x-ray, question systolic versus diastolic, likely acute on chronic given presentation. # elevated troponin in the setting of end-stage kidney disease # Epigastric pain r/o gastritis/ GB disease> CT scan was pending Plan - S/P Code blue multiple CPR -Neurological status seems intact since patient is following basic commands -Weaning as per pulmonary -H&H stable status post 2 units of blood -Dr. [place] was also called for fracture of the left hip -Hold anticoagulation due to bleeding - IV fluids - iv rocephin - ? Feeding for GI - F/u Cardiac and pul recs - IV Protonix - FS monitoring - cw Pressor support with Levophed/ epi Result Diagram: 07/25/18 0516 07/25/18 0516 Results 24hrs Laboratory Tests Test 07/24/18 10:15 07/24/18 10:24 07/24/18 11:05 07/24/18 11:39 Bedside Glucose 53 L 105 118 White Blood 19.9 #H Count Red Blood Count 2.01 #L Hemoglobin 6.5 #*L Hematocrit 21.2 #L Mean 105.5 H Corpuscular Volume Mean 32.3 Corpuscular Hemoglobin Mean 30.7 L Corpuscular Hemoglobin Conc ent Red Cell 18.2 H Distribution Width Platelet Count 173 # Mean Platelet 11.2 H Volume Immature 1.200 H Granulocytes % Segmented 72 Neutrophils % (Manual) Band 24 H Neutrophils % (Manual) Lymphocytes % 2 L (Manual) Eosinophils % 1 (Manual) Metamyelocytes 1 H % (manual) Nucleated Red 1 H Blood Cells % Immature 0.240 H Granulocytes # Neutrophils # 15.3 H (Manual) Band 4.7 H Neutrophils # Lymphocytes 0.3 L (Manual) Metamyelocytes 0.1 H # Platelet NORMAL Estimate Polychromasia 2+ Poikilocytosis 2+ Anisocytosis 1+ Macrocytosis 1+ Ovalocytes 1+ Sodium Level 144 Potassium Level 3.7 Chloride Level 107 Carbon Dioxide 21 Level Anion Gap 16 #H Blood Urea 13 # Nitrogen Creatinine 1.53 #H Est Glomerular Filtrat Rate mL/min Glucose Level 116 Calcium Level 8.1 L Test 07/24/18 17:56 07/24/18 18:42 07/24/18 19:27 07/24/18 21:21 Creatine Kinase 421 H Creatine Kinase 7.2 Index Creatinine 30.40 H Kinase MB (Mass) Troponin I 12.400 *H Bedside Glucose 180 139 Hemoglobin 9.8 #L Hematocrit 30.7 #L Test 07/24/18 21:52 07/25/18 00:49 07/25/18 01:05 07/25/18 04:43 Bedside Glucose 153 209 150 Creatine Kinase 519 H Creatine Kinase 3.7 Index Creatinine 19.30 H Kinase MB (Mass) Troponin I 19.100 *H Test 07/25/18 05:00 07/25/18 05:02 07/25/18 05:16 07/25/18 07:00 Blood Gas Blood arterial Blood Specimen arterial Source Arterial Blood 07/25/2018 4:40: 07/25/2018 7:59 Date Drawn 47 AM :29 AM Arterial Blood 7.545 H 7.625 *H pH (Temp corrected ) Arterial Blood 27.7 L 27.1 L pCO2 (Temp correct) Arterial Blood 296.5 H 85.7 pO2 (Temp corrected ) Arterial Blood 23.4 27.5 H HCO3 Arterial Blood 1.7 6.7 H Base Excess Arterial Blood 99.1 97.2 Oxygen Saturati on Low Test N/A ACCEPTAB Arterial Blood A-Line Right Radial Gas Puncture Site Arterial 0.3 0.3 Blood Carboxyhe moglobin Arterial Blood 0.2 0.2 Methemoglobin Blood Gas A-a 388.8 H 240.3 H O2 Differential Oxyhemoglobin 98.6 96.7 Percent Blood Gas 37.0 37.0 Temperature Blood Gas 20.0 20.0 Respiration Rate Blood Gas 21 24 Actual Respiration Rat e Blood Gas VENT - AC VENT - AC Modality FiO2 100.0 50.0 Blood Gas Tidal 450.0 450.0 Volume Blood Gas Low 5.0 5.0 PEEP Setting Blood Gas 25.0 Inspiratory Pressure Blood Gas S.H. DT Notified Whom Blood Gas 07/25/2018 4:53: 07/25/2018 8:28 Notified Time 03 AM :53 AM Lab Scanned BLOOD TRANSFUSI Report ON White Blood 21.5 H Count Red Blood Count 3.03 #L Hemoglobin 9.4 L Hematocrit 28.5 L Mean 94.1 Corpuscular Volume Mean 31.0 Corpuscular Hemoglobin Mean 33.0 Corpuscular Hemoglobin Conc ent Red Cell 19.2 H Distribution Width Platelet Count 150 Mean Platelet 11.6 H Volume Immature 0.900 H Granulocytes % Neutrophils % Segmented 56 Neutrophils % (Manual) Band 26 H Neutrophils % (Manual) Lymphocytes % Lymphocytes % 13 L (Manual) Monocytes % Monocytes % 5 (Manual) Eosinophils % Basophils % Nucleated Red 0.7 H Blood Cells % Immature 0.200 H Granulocytes # Neutrophils # Neutrophils # 13.2 H (Manual) Band 5.5 H Neutrophils # Lymphocytes 2.7 (Manual) Lymphocytes # Monocytes # Monocytes # 1.0 H (Manual) Eosinophils # Basophils # Nucleated Red Blood Cells # Platelet NORMAL Estimate Giant Platelets 4 H Hypochromasia 1+ Poikilocytosis 2+ Anisocytosis 1+ Macrocytosis 1+ Target Cells 1+ Elliptocytes 1+ Sodium Level 143 Potassium Level 3.3 L Chloride Level 106 Carbon Dioxide 26 Level Anion Gap 11 Blood Urea 20 Nitrogen Creatinine 1.98 H Est Glomerular Filtrat Rate mL/min Glucose Level 165 Calcium Level 8.1 L Creatine Kinase 747 H Creatine Kinase 2.0 Index Creatinine 14.90 H Kinase MB (Mass) Troponin I 19.800 *H Blood Gas Y KODY VRN Critical Value Read Back Subjective 24 Hr Interval Summary Free Text/Dictation Opens eyes follows simple commands On lower doses of Levophed Exam/Review of Systems Exam Vitals Vital Signs Date Temp Pulse Resp B/P (MAP) Pulse Ox O2 O2 Flow FiO2 Time Delivery Rate 07/25/18 87 25 95 50 08:42 07/25/18 110/49 Mechanical 07:45 (69) Ventilator 07/25/18 98.3 04:00 07/24/18 2.0 08:52 Intake and Output 07/24/18 07/24/18 07/25/18 1515:00 23:00 07:00 IntakeIntake Total 1356.10 ml 1565.463 ml 1069.84 ml OutputOutput Total 660 ml 60 ml 15 ml BalanceBalance 696.10 ml 1505.463 ml 1054.84 ml Exam Constitutional: intubated , on pressors Head: normocephalic Eyes: nl conjunctiva, other (left eye defect) Neck: supple Respiratory: clear to auscultation Gastrointestinal: soft Right leg status post fracture Left amputation rt permcath Results Results 24hrs Laboratory Tests Test 07/24/18 10:15 07/24/18 10:24 07/24/18 11:05 07/24/18 11:39 Bedside Glucose 53 L 105 118 White Blood 19.9 #H Count Red Blood Count 2.01 #L Hemoglobin 6.5 #*L Hematocrit 21.2 #L Mean 105.5 H Corpuscular Volume Mean 32.3 Corpuscular Hemoglobin Mean 30.7 L Corpuscular Hemoglobin Conc ent Red Cell 18.2 H Distribution Width Platelet Count 173 # Mean Platelet 11.2 H Volume Immature 1.200 H Granulocytes % Segmented 72 Neutrophils % (Manual) Band 24 H Neutrophils % (Manual) Lymphocytes % 2 L (Manual) Eosinophils % 1 (Manual) Metamyelocytes 1 H % (manual) Nucleated Red 1 H Blood Cells % Immature 0.240 H Granulocytes # Neutrophils # 15.3 H (Manual) Band 4.7 H Neutrophils # Lymphocytes 0.3 L (Manual) Metamyelocytes 0.1 H # Platelet NORMAL Estimate Polychromasia 2+ Poikilocytosis 2+ Anisocytosis 1+ Macrocytosis 1+ Ovalocytes 1+ Sodium Level 144 Potassium Level 3.7 Chloride Level 107 Carbon Dioxide 21 Level Anion Gap 16 #H Blood Urea 13 # Nitrogen Creatinine 1.53 #H Est Glomerular Filtrat Rate mL/min Glucose Level 116 Calcium Level 8.1 L Test 07/24/18 17:56 07/24/18 18:42 07/24/18 19:27 07/24/18 21:21 Creatine Kinase 421 H Creatine Kinase 7.2 Index Creatinine 30.40 H Kinase MB (Mass) Troponin I 12.400 *H Bedside Glucose 180 139 Hemoglobin 9.8 #L Hematocrit 30.7 #L Test 07/24/18 21:52 07/25/18 00:49 07/25/18 01:05 07/25/18 04:43 Bedside Glucose 153 209 150 Creatine Kinase 519 H Creatine Kinase 3.7 Index Creatinine 19.30 H Kinase MB (Mass) Troponin I 19.100 *H Test 07/25/18 05:00 07/25/18 05:02 07/25/18 05:16 07/25/18 07:00 Blood Gas Blood arterial Blood Specimen arterial Source Arterial Blood 07/25/2018 4:40: 07/25/2018 7:59 Date Drawn 47 AM :29 AM Arterial Blood 7.545 H 7.625 *H pH (Temp corrected ) Arterial Blood 27.7 L 27.1 L pCO2 (Temp correct) Arterial Blood 296.5 H 85.7 pO2 (Temp corrected ) Arterial Blood 23.4 27.5 H HCO3 Arterial Blood 1.7 6.7 H Base Excess Arterial Blood 99.1 97.2 Oxygen Saturati on Low Test N/A ACCEPTAB Arterial Blood A-Line Right Radial Gas Puncture Site Arterial 0.3 0.3 Blood Carboxyhe moglobin Arterial Blood 0.2 0.2 Methemoglobin Blood Gas A-a 388.8 H 240.3 H O2 Differential Oxyhemoglobin 98.6 96.7 Percent Blood Gas 37.0 37.0 Temperature Blood Gas 20.0 20.0 Respiration Rate Blood Gas 21 24 Actual Respiration Rat e Blood Gas VENT - AC VENT - AC Modality FiO2 100.0 50.0 Blood Gas Tidal 450.0 450.0 Volume Blood Gas Low 5.0 5.0 PEEP Setting Blood Gas 25.0 Inspiratory Pressure Blood Gas S.H. DT Notified Whom Blood Gas 07/25/2018 4:53: 07/25/2018 8:28 Notified Time 03 AM :53 AM Lab Scanned BLOOD TRANSFUSI Report ON White Blood 21.5 H Count Red Blood Count 3.03 #L Hemoglobin 9.4 L Hematocrit 28.5 L Mean 94.1 Corpuscular Volume Mean 31.0 Corpuscular Hemoglobin Mean 33.0 Corpuscular Hemoglobin Conc ent Red Cell 19.2 H Distribution Width Platelet Count 150 Mean Platelet 11.6 H Volume Immature 0.900 H Granulocytes % Neutrophils % Segmented 56 Neutrophils % (Manual) Band 26 H Neutrophils % (Manual) Lymphocytes % Lymphocytes % 13 L (Manual) Monocytes % Monocytes % 5 (Manual) Eosinophils % Basophils % Nucleated Red 0.7 H Blood Cells % Immature 0.200 H Granulocytes # Neutrophils # Neutrophils # 13.2 H (Manual) Band 5.5 H Neutrophils # Lymphocytes 2.7 (Manual) Lymphocytes # Monocytes # Monocytes # 1.0 H (Manual) Eosinophils # Basophils # Nucleated Red Blood Cells # Platelet NORMAL Estimate Giant Platelets 4 H Hypochromasia 1+ Poikilocytosis 2+ Anisocytosis 1+ Macrocytosis 1+ Target Cells 1+ Elliptocytes 1+ Sodium Level 143 Potassium Level 3.3 L Chloride Level 106 Carbon Dioxide 26 Level Anion Gap 11 Blood Urea 20 Nitrogen Creatinine 1.98 H Est Glomerular Filtrat Rate mL/min Glucose Level 165 Calcium Level 8.1 L Creatine Kinase 747 H Creatine Kinase 2.0 Index Creatinine 14.90 H Kinase MB (Mass) Troponin I 19.800 *H Blood Gas Y KODY VRN Critical Value Read Back Medications Medication Current Medications Atorvastatin Calcium (Lipitor) 40 mg QHS PO Last administered on 07/24/18at 21:45; Admin Dose 40 MG; Start 07/14/18 at 21:00 Multivit/Ca Carb/ B Cmplx/FA/Prenat (Shyann-Raj) 1 tab DAILY PO Last administered on 07/23/18at 08:39; Admin Dose 1 TAB; Start 07/14/18 at 09:00 Tramadol HCl (Ultram) 50 mg TID PRN PO PAIN LEVEL 6-10 Last administered on 07/24/18 03:35; Admin Dose 50 MG; Start 07/13/18 at 23:30 Acetaminophen (Tylenol Tab) 650 mg Q6H PRN PO MILD PAIN(1-3)OR ELEVATED TEMP; Start 07/13/18 at 23:30 Hydralazine HCl (Apresoline) 20 mg Q6H PRN IV sbp over 170 Last administered on 07/14/18at 11:56; Admin Dose 20 MG; Start 07/13/18 at 23:30 Miscellaneous Information 1 ea NOTE XX ; Start 07/13/18 at 23:30 Glucose (Glutose) 15 gm Q15M PRN PO DECREASED GLUCOSE; Start 07/13/18 at 23:30 Glucose (Glutose) 22.5 gm Q15M PRN PO DECREASED GLUCOSE; Start 07/13/18 at 23:30 Dextrose (D50w Syringe) 25 ml Q15M PRN IV DECREASED GLUCOSE Last administered on 07/24/18at 08:19; Admin Dose 25 ML; Start 07/13/18 at 23:30 Dextrose (D50w Syringe) 50 ml Q15M PRN IV DECREASED GLUCOSE; Start 07/13/18 at 23:30 Glucagon (Glucagen) 1 mg Q15M PRN IM DECREASED GLUCOSE; Start 07/13/18 at 23:30 Glucose (Glutose) 15 gm Q15M PRN BUCCAL DECREASED GLUCOSE; Start 07/13/18 at 23:30 Ondansetron HCl (Zofran Inj) 4 mg Q4H PRN IV NAUSEA AND/OR VOMITING Last administered on 07/23/18at 16:30; Admin Dose 4 MG; Start 07/14/18 at 00:30 Miscellaneous Information (Pending [facility] Order For Wound Care) This patient easley... PRN PRN XX WOUND CARE; Start 07/14/18 at 04:30 Heparin Sodium (Porcine) (Heparin (1000 Units/ml)) 4,000 unit AFTER DIALYSIS CATHETER Last administered on 07/20/18at 17:15; Admin Dose 3,400 UNIT; Start 07/17/18 at 12:30 Diagnostic Test (Pha) (Accu-Chek) 1 ea 02 XX Last administered on 07/22/18at 02:17; Admin Dose 1 EA; Start 07/19/18 at 02:00 IV Flush (NS 3 ml) 3 ml PER PROTOCOL IV ; Start 07/20/18 at 11:30 Acetaminophen/ Hydrocodone Bitart ([place] (5/325)) 1 tab Q3H PRN PO MODERATE PAIN LEVEL 4-6 Last administered on 07/21/18 12:47; Admin Dose 1 TAB; Start 07/20/18 at 11:30 Calcium/Vitamin D (Oyster Shell/ Vit-D (500/200)) 1 tab BID PO Last administered on 07/24/18 21:45; Admin Dose 1 TAB; Start 07/20/18 at 21:00 Metoprolol Tartrate (Lopressor) 5 mg Q4H PRN IV HR > 110; Hold if SBP < 100 Last administered on 07/21/18 01:52; Admin Dose 5 MG; Start 07/21/18 at 02:00 Hydromorphone HCl (Dilaudid) 1 mg Q4H PRN IV SEVERE PAIN LEVEL 7-10 Last administered on 07/23/18 21:37; Admin Dose 1 MG; Start 07/23/18 at 22:00 Metoclopramide HCl (Reglan) 10 mg Q6H PRN IV NAUSEA AND/OR VOMITING Last administered on 07/23/18 21:37; Admin Dose 10 MG; Start 07/23/18 at 20:30 Ceftriaxone Sodium 50 ml @ 100 mls/hr Q24H IVPB Last administered on 07/24/18 11:30; Admin Dose 100 MLS/HR; Start 07/24/18 at 11:00 Pantoprazole 80 mg/Sodium Chloride 100 ml @ 10 mls/hr Q10H IV Last administered on 07/25/18 02:15; Admin Dose 10 MLS/HR; Start 07/24/18 at 16:00 Norepinephrine 250 ml @ 1.875 mls/ hr TITRATE IV Last administered on 07/25/18 00:42; Admin Dose 37.5 MLS/HR; Start 07/24/18 at 11:00 Dextrose/Sodium Chloride 1,000 ml @ 20 mls/hr Q24H IV Last administered on 07/25/18 02:15; Admin Dose 70 MLS/HR; Start 07/24/18 at 11:30 Amiodarone HCl 900 mg/Dextrose 500 ml @ 0 mls/hr Q0M IV Last administered on 07/24/18 19:00; Admin Dose 33.33 MLS/HR; Start 07/24/18 at 19:30; Stop 07/25/18 at 19:29 Collagenase (Santyl) 1 applic DAILY TOP ; Start 07/25/18 at 09:00 Morphine Sulfate (morphine) 2 mg Q2H PRN IV SEVERE PAIN LEVEL 7-10 Last administered on 07/25/18at 03:55; Admin Dose 2 MG; Start 07/24/18 at 20:30; Stop 07/26/18 at 23:00 Phenylephrine HCl 80 mg/Dextrose 250 ml @ 18.75 mls/ hr TITRATE IV Last administered on 07/24/18at 22:31; Admin Dose 3.75 MLS/HR; Start 07/24/18 at 20:30 Insulin Aspart (Novolog Insulin Pen) NOVOLOG *MILD* ALGORI... Q4 SC Last administered on 07/25/18at 04:48; Admin Dose 1 UNIT; Start 07/24/18 at 21:00 ADAM DUARTE MD Jul 25, 2018 09:27
[2018-07-25] MEDS ORDERED: POTASSIUM CHLORIDE 100 ML IVPB ONE (09:30)
[2018-07-25] MEDS: COLLAGENASE 5 GM (UD JAR) TOP SCH (09:31)
[2018-07-25] MEDS: BALSAM PERU/CASTOR OIL 60 GM TUBE TOP SCH ×2 (09:32→21:27)
[2018-07-25] MEDS: MULTIVIT/CA CARB/B CMPLX/FA TAB PO SCH (09:32)
[2018-07-25] MEDS: CALCIUM/VITAMIN D (500/200) TAB PO SCH ×2 (09:32→21:22)
--- NOTE | 2018-07-25 09:58 | CONS ---
Consult Date/Type/Reason Admit Date/Time Jul 13, 2018 at 21:32 Initial Consult Date Type of Consult Pulmonary Requesting Provider: ADAM DUARTE MD Date/Time of Note DATE: 07/25/18 TIME: 09:55 Subjective Opens eyes and follows simple commands. Continues vasopressor support however decreased doses compared to yesterday. Initiated on amiodarone yesterday. Objective Vital Signs Date Temp Pulse Resp B/P (MAP) Pulse Ox O2 O2 Flow FiO2 Time Delivery Rate 07/25/18 87 25 95 50 08:42 07/25/18 110/49 Mechanical 07:45 (69) Ventilator 07/25/18 98.3 04:00 07/24/18 2.0 08:52 Intake and Output 07/24/18 07/24/18 07/25/18 1515:00 23:00 07:00 IntakeIntake Total 1356.10 ml 1565.463 ml 1069.84 ml OutputOutput Total 660 ml 60 ml 15 ml BalanceBalance 696.10 ml 1505.463 ml 1054.84 ml Exam PHYSICAL EXAMINATION: GENERAL: Chronically ill appearing lady on mechanical ventilation. VITAL SIGNS: Opens eyes attempting to communicate. NECK: Supple. No JVD or lymphadenopathy. CARDIAC: S1, S2, no added sounds or murmurs. CHEST: Diminished air entry bilaterally. ABDOMEN: Soft, nontender. No guarding or rebound. EXTREMITIES: No cyanosis, clubbing or edema. NEUROLOGIC: Unable to assess. Vent Setting Ventilator Support Mode: AC Fraction of Inspired Oxygen pe: 50 Positive End Expiratory Pressu: 5.0 Results/Medications Result Diagram: 07/25/1816 07/25/18 0516 Results 24 hrs Laboratory Tests Test 07/24/18 10:15 07/24/18 10:24 07/24/18 11:05 07/24/18 11:39 Bedside Glucose 53 L 105 118 White Blood 19.9 #H Count Red Blood Count 2.01 #L Hemoglobin 6.5 #*L Hematocrit 21.2 #L Mean 105.5 H Corpuscular Volume Mean 32.3 Corpuscular Hemoglobin Mean 30.7 L Corpuscular Hemoglobin Conc ent Red Cell 18.2 H Distribution Width Platelet Count 173 # Mean Platelet 11.2 H Volume Immature 1.200 H Granulocytes % Segmented 72 Neutrophils % (Manual) Band 24 H Neutrophils % (Manual) Lymphocytes % 2 L (Manual) Eosinophils % 1 (Manual) Metamyelocytes 1 H % (manual) Nucleated Red 1 H Blood Cells % Immature 0.240 H Granulocytes # Neutrophils # 15.3 H (Manual) Band 4.7 H Neutrophils # Lymphocytes 0.3 L (Manual) Metamyelocytes 0.1 H # Platelet NORMAL Estimate Polychromasia 2+ Poikilocytosis 2+ Anisocytosis 1+ Macrocytosis 1+ Ovalocytes 1+ Sodium Level 144 Potassium Level 3.7 Chloride Level 107 Carbon Dioxide 21 Level Anion Gap 16 #H Blood Urea 13 # Nitrogen Creatinine 1.53 #H Est Glomerular Filtrat Rate mL/min Glucose Level 116 Calcium Level 8.1 L Test 07/24/18 17:56 07/24/18 18:42 07/24/18 19:27 07/24/18 21:21 Creatine Kinase 421 H Creatine Kinase 7.2 Index Creatinine 30.40 H Kinase MB (Mass) Troponin I 12.400 *H Bedside Glucose 180 139 Hemoglobin 9.8 #L Hematocrit 30.7 #L Test 07/24/18 21:52 07/25/18 00:49 07/25/18 01:05 07/25/18 04:43 Bedside Glucose 153 209 150 Creatine Kinase 519 H Creatine Kinase 3.7 Index Creatinine 19.30 H Kinase MB (Mass) Troponin I 19.100 *H Test 07/25/18 05:00 07/25/18 05:02 07/25/18 05:16 07/25/18 07:00 Blood Gas Blood arterial Blood Specimen arterial Source Arterial Blood 07/25/2018 4:40: 07/25/2018 7:59 Date Drawn 47 AM :29 AM Arterial Blood 7.545 H 7.625 *H pH (Temp corrected ) Arterial Blood 27.7 L 27.1 L pCO2 (Temp correct) Arterial Blood 296.5 H 85.7 pO2 (Temp corrected ) Arterial Blood 23.4 27.5 H HCO3 Arterial Blood 1.7 6.7 H Base Excess Arterial Blood 99.1 97.2 Oxygen Saturati on Low Test N/A ACCEPTAB Arterial Blood A-Line Right Radial Gas Puncture Site Arterial 0.3 0.3 Blood Carboxyhe moglobin Arterial Blood 0.2 0.2 Methemoglobin Blood Gas A-a 388.8 H 240.3 H O2 Differential Oxyhemoglobin 98.6 96.7 Percent Blood Gas 37.0 37.0 Temperature Blood Gas 20.0 20.0 Respiration Rate Blood Gas 21 24 Actual Respiration Rat e Blood Gas VENT - AC VENT - AC Modality FiO2 100.0 50.0 Blood Gas Tidal 450.0 450.0 Volume Blood Gas Low 5.0 5.0 PEEP Setting Blood Gas 25.0 Inspiratory Pressure Blood Gas S.H. DT Notified Whom Blood Gas 07/25/2018 4:53: 07/25/2018 8:28 Notified Time 03 AM :53 AM Lab Scanned BLOOD TRANSFUSI Report ON White Blood 21.5 H Count Red Blood Count 3.03 #L Hemoglobin 9.4 L Hematocrit 28.5 L Mean 94.1 Corpuscular Volume Mean 31.0 Corpuscular Hemoglobin Mean 33.0 Corpuscular Hemoglobin Conc ent Red Cell 19.2 H Distribution Width Platelet Count 150 Mean Platelet 11.6 H Volume Immature 0.900 H Granulocytes % Neutrophils % Segmented 56 Neutrophils % (Manual) Band 26 H Neutrophils % (Manual) Lymphocytes % Lymphocytes % 13 L (Manual) Monocytes % Monocytes % 5 (Manual) Eosinophils % Basophils % Nucleated Red 0.7 H Blood Cells % Immature 0.200 H Granulocytes # Neutrophils # Neutrophils # 13.2 H (Manual) Band 5.5 H Neutrophils # Lymphocytes 2.7 (Manual) Lymphocytes # Monocytes # Monocytes # 1.0 H (Manual) Eosinophils # Basophils # Nucleated Red Blood Cells # Platelet NORMAL Estimate Giant Platelets 4 H Hypochromasia 1+ Poikilocytosis 2+ Anisocytosis 1+ Macrocytosis 1+ Target Cells 1+ Elliptocytes 1+ Sodium Level 143 Potassium Level 3.3 L Chloride Level 106 Carbon Dioxide 26 Level Anion Gap 11 Blood Urea 20 Nitrogen Creatinine 1.98 H Est Glomerular Filtrat Rate mL/min Glucose Level 165 Calcium Level 8.1 L Creatine Kinase 747 H Creatine Kinase 2.0 Index Creatinine 14.90 H Kinase MB (Mass) Troponin I 19.800 *H Blood Gas Y KODY VRN Critical Value Read Back Test 07/25/18 09:30 Bedside Glucose 214 Medications Current Medications Atorvastatin Calcium (Lipitor) 40 mg QHS PO Last administered on 07/24/18at 21:45; Admin Dose 40 MG; Start 07/14/18 at 21:00 Multivit/Ca Carb/ B Cmplx/FA/Prenat (Shyann-Raj) 1 tab DAILY PO Last administered on 07/25/18at 09:32; Admin Dose 1 TAB; Start 07/14/18 at 09:00 Tramadol HCl (Ultram) 50 mg TID PRN PO PAIN LEVEL 6-10 Last administered on 07/24/18at 03:35; Admin Dose 50 MG; Start 07/13/18 at 23:30 Acetaminophen (Tylenol Tab) 650 mg Q6H PRN PO MILD PAIN(1-3)OR ELEVATED TEMP; Start 07/13/18 at 23:30 Hydralazine HCl (Apresoline) 20 mg Q6H PRN IV sbp over 170 Last administered on 07/14/18at 11:56; Admin Dose 20 MG; Start 07/13/18 at 23:30 Miscellaneous Information 1 ea NOTE XX ; Start 07/13/18 at 23:30 Glucose (Glutose) 15 gm Q15M PRN PO DECREASED GLUCOSE; Start 07/13/18 at 23:30 Glucose (Glutose) 22.5 gm Q15M PRN PO DECREASED GLUCOSE; Start 07/13/18 at 23:30 Dextrose (D50w Syringe) 25 ml Q15M PRN IV DECREASED GLUCOSE Last administered on 07/24/18at 08:19; Admin Dose 25 ML; Start 07/13/18 at 23:30 Dextrose (D50w Syringe) 50 ml Q15M PRN IV DECREASED GLUCOSE; Start 07/13/18 at 23:30 Glucagon (Glucagen) 1 mg Q15M PRN IM DECREASED GLUCOSE; Start 07/13/18 at 23:30 Glucose (Glutose) 15 gm Q15M PRN BUCCAL DECREASED GLUCOSE; Start 07/13/18 at 23:30 Ondansetron HCl (Zofran Inj) 4 mg Q4H PRN IV NAUSEA AND/OR VOMITING Last administered on 07/23/18at 16:30; Admin Dose 4 MG; Start 07/14/18 at 00:30 Miscellaneous Information (Pending [facility] Order For Wound Care) This patient easley... PRN PRN XX WOUND CARE; Start 07/14/18 at 04:30 Heparin Sodium (Porcine) (Heparin (1000 Units/ml)) 4,000 unit AFTER DIALYSIS CA THETER Last administered on 07/20/18at 17:15; Admin Dose 3,400 UNIT; Start 07/17/18 at 12:30 Diagnostic Test (Pha) (Accu-Chek) 1 ea 02 XX Last administered on 07/22/18 02:17; Admin Dose 1 EA; Start 07/19/18 at 02:00 IV Flush (NS 3 ml) 3 ml PER PROTOCOL IV ; Start 07/20/18 at 11:30 Acetaminophen/ Hydrocodone Bitart ([place] (5/325)) 1 tab Q3H PRN PO MODERATE PAIN LEVEL 4-6 Last administered on 07/21/18 12:47; Admin Dose 1 TAB; Start 07/20/18 at 11:30 Calcium/Vitamin D (Oyster Shell/ Vit-D (500/200)) 1 tab BID PO Last administered on 07/25/18 09:32; Admin Dose 1 TAB; Start 07/20/18 at 21:00 Metoprolol Tartrate (Lopressor) 5 mg Q4H PRN IV HR > 110; Hold if SBP < 100 Last administered on 07/21/18 01:52; Admin Dose 5 MG; Start 07/21/18 at 02:00 Hydromorphone HCl (Dilaudid) 1 mg Q4H PRN IV SEVERE PAIN LEVEL 7-10 Last administered on 07/23/18 21:37; Admin Dose 1 MG; Start 07/23/18 at 22:00 Metoclopramide HCl (Reglan) 10 mg Q6H PRN IV NAUSEA AND/OR VOMITING Last administered on 07/23/18 21:37; Admin Dose 10 MG; Start 07/23/18 at 20:30 Ceftriaxone Sodium 50 ml @ 100 mls/hr Q24H IVPB Last administered on 07/24/18 11:30; Admin Dose 100 MLS/HR; Start 07/24/18 at 11:00 Pantoprazole 80 mg/Sodium Chloride 100 ml @ 10 mls/hr Q10H IV Last administered on 07/25/18 02:15; Admin Dose 10 MLS/HR; Start 07/24/18 at 16:00 Norepinephrine 250 ml @ 1.875 mls/ hr TITRATE IV Last administered on 07/25/18 00:42; Admin Dose 37.5 MLS/HR; Start 07/24/18 at 11:00 Dextrose/Sodium Chloride 1,000 ml @ 20 mls/hr Q24H IV Last administered on 07/25/18 02:15; Admin Dose 70 MLS/HR; Start 07/24/18 at 11:30 Amiodarone HCl 900 mg/Dextrose 500 ml @ 0 mls/hr Q0M IV Last administered on 07/24/18 19:00; Admin Dose 33.33 MLS/HR; Start 07/24/18 at 19:30; Stop 07/25/18 at 19:29 Collagenase (Santyl) 1 applic DAILY TOP Last administered on 07/25/18 09:31; Admin Dose 1 APPLIC; Start 07/25/18 at 09:00 Morphine Sulfate (morphine) 2 mg Q2H PRN IV SEVERE PAIN LEVEL 7-10 Last administered on 07/25/18 03:55; Admin Dose 2 MG; Start 07/24/18 at 20:30; Stop 07/26/18 at 23:00 Phenylephrine HCl 80 mg/Dextrose 250 ml @ 18.75 mls/ hr TITRATE IV Last administered on 07/24/18 22:31; Admin Dose 3.75 MLS/HR; Start 07/24/18 at 20:30 Insulin Aspart (Novolog Insulin Pen) NOVOLOG *MILD* ALGORI... Q4 SC Last a dministered on 07/25/18 09:39; Admin Dose 2 UNIT; Start 07/24/18 at 21:00 Potassium Chloride 100 ml @ 50 mls/hr ONCE ONCE IVPB ; Start 07/25/18 at 09:30; Stop 07/25/18 at 11:29 Insulin Glargine (Lantus) 6 units DAILY@0800 SC ; Start 07/26/18 at 08:00 Assessment/Plan Hospital Course (Demo Recall) IMPRESSION AND PLAN: 1. Cardiopulmonary arrest. Prolonged CPR with ACLS protocol. 2. Multiple cardiopulmonary arrests and prolonged hypotension, despite this pa tient seems to be neurologically intact 3. End-stage renal failure on hemodialysis. 4. Possible aspiration pneumonia. 5. History of severe peripheral vascular disease. 6. Possible acute GI bleed given acute drop in hemoglobin prior to cardiac arrest Plan 1. Vasopressor support as needed. 2. Mechanical ventilation adjust minute ventilation is required. 3. Broad-spectrum antibiotic coverage for possible aspiration. 4. GI evaluation consider EGD and/or colonoscopy 5. DVT and GI prophylaxis. Critical care time 40 minutes. DEVAN MIDDLETON MD, [facility] Jul 25, 2018 09:58
--- NOTE | 2018-07-25 10:18 | CONS ---
Assessment/Plan Assessment/Plan Hospital Course (Demo Recall) IMP: 1. Preoperative for LE ORIF-NL EF by echo with mod-sev TR. Lexiscan with NL EF and partially reversible inferior wall defect. Thus patient has no cardiac contraindication to proceeding to OR on current medications but at moderate to high risk. Now post-op s/p ORIF 2.Positive troponin 3.BRadycardia to 40's/stable BP. S Misael- now improved with decrease in dose of clonidine and having short runs of tachycardia/SVT. ? Now in AF s/p code yesterday 4.HTN-uncontrolled at this time 5.ankle fracture 6.ESRD on HD 7. TR-mod-sev 8. ? sick euthyroid-elevated TSH and Free t4 9. Patient with PEA and VFA this am requiring ACLS and intubation protocol on onset during HD 10. anemia-acute drop. ? where bleeding,internal given abd pain. Now s/p transfusion PRBC's with stable Hgb today 11.PAF- in AF at this time. Reasonable rates on amiodarone 12. Nstemi Recc -ICU -Continue levophed/Jake with weaning as tolerated -Contnue amiodarone -continue vent support -Hold ASA/systemic anticoag for AF given anemia requiring transfusions -transfuse PRBC's as necessary -holding HD today given instability -trend cardiac enzymes with CKMB already peaking Troponin may continue to rise in the setting of renal failure Consultation Date/Type/Reason Admit Date/Time Jul 13, 2018 at 21:32 Initial Consult Date 07/16/18 Type of Consult Cardiology Reason for Consultation hypotension/cardiac arrest Requesting Provider: ADAM DUARTE MD Date/Time of Note DATE: 07/25/18 TIME: 10:11 Exam/Review of Systems Vital Signs Vitals Vital Signs Date Temp Pulse Resp B/P (MAP) Pulse Ox O2 O2 Flow FiO2 Time Delivery Rate 07/25/18 87 25 95 50 08:42 07/25/18 110/49 Mechanical 07:45 (69) Ventilator 07/25/18 98.3 04:00 07/24/18 2.0 08:52 Intake and Output 07/24/18 07/24/18 07/25/18 1515:00 23:00 07:00 IntakeIntake Total 1356.10 ml 1565.463 ml 1069.84 ml OutputOutput Total 660 ml 60 ml 15 ml BalanceBalance 696.10 ml 1505.463 ml 1054.84 ml Exam Exam Review of Systems: CONSTITUTIONAL: No fevers, chills. PULMONARY: intubated CARDIOVASCULAR: No chest pain/palpitations GASTROINTESTINAL: No nausea/vomiting. GENITOURINARY: No hematuria/dysuria. MUSCULOSKELETAL: No myagias/arthalgias. PSYCHIATRIC: The patient denies depression. NEUROLOGIC: awake Constitutional: alert Psych: no complaints Head: normocephalic ENMT: mucosa pink and moist Neck: supple, jvd (9 cm water) Respiratory: diminished breath sounds (at bases/B) Cardiovascular: irregular rhythm Gastrointestinal: soft, non-tender Musculoskeletal: muscle tone (normal) Extremities: edema (none) Neurological: other (no focal deficits) Labs Result Diagram: 07/25/18 0516 07/25/18 0516 Results 24hrs Laboratory Tests Test 07/24/18 10:15 07/24/18 10:24 07/24/18 11:05 07/24/18 11:39 Bedside Glucose 53 L 105 118 White Blood 19.9 #H Count Red Blood Count 2.01 #L Hemoglobin 6.5 #*L Hematocrit 21.2 #L Mean 105.5 H Corpuscular Volume Mean 32.3 Corpuscular Hemoglobin Mean 30.7 L Corpuscular Hemoglobin Conc ent Red Cell 18.2 H Distribution Width Platelet Count 173 # Mean Platelet 11.2 H Volume Immature 1.200 H Granulocytes % Segmented 72 Neutrophils % (Manual) Band 24 H Neutrophils % (Manual) Lymphocytes % 2 L (Manual) Eosinophils % 1 (Manual) Metamyelocytes 1 H % (manual) Nucleated Red 1 H Blood Cells % Immature 0.240 H Granulocytes # Neutrophils # 15.3 H (Manual) Band 4.7 H Neutrophils # Lymphocytes 0.3 L (Manual) Metamyelocytes 0.1 H # Platelet NORMAL Estimate Polychromasia 2+ Poikilocytosis 2+ Anisocytosis 1+ Macrocytosis 1+ Ovalocytes 1+ Sodium Level 144 Potassium Level 3.7 Chloride Level 107 Carbon Dioxide 21 Level Anion Gap 16 #H Blood Urea 13 # Nitrogen Creatinine 1.53 #H Est Glomerular Filtrat Rate mL/min Glucose Level 116 Calcium Level 8.1 L Test 07/24/18 17:56 07/24/18 18:42 07/24/18 19:27 07/24/18 21:21 Creatine Kinase 421 H Creatine Kinase 7.2 Index Creatinine 30.40 H Kinase MB (Mass) Troponin I 12.400 *H Bedside Glucose 180 139 Hemoglobin 9.8 #L Hematocrit 30.7 #L Test 07/24/18 21:52 07/25/18 00:49 07/25/18 01:05 07/25/18 04:43 Bedside Glucose 153 209 150 Creatine Kinase 519 H Creatine Kinase 3.7 Index Creatinine 19.30 H Kinase MB (Mass) Troponin I 19.100 *H Test 07/25/18 05:00 07/25/18 05:02 07/25/18 05:16 07/25/18 07:00 Blood Gas Blood arterial Blood Specimen arterial Source Arterial Blood 07/25/2018 4:40: 07/25/2018 7:59 Date Drawn 47 AM :29 AM Arterial Blood 7.545 H 7.625 *H pH (Temp corrected ) Arterial Blood 27.7 L 27.1 L pCO2 (Temp correct) Arterial Blood 296.5 H 85.7 pO2 (Temp corrected ) Arterial Blood 23.4 27.5 H HCO3 Arterial Blood 1.7 6.7 H Base Excess Arterial Blood 99.1 97.2 Oxygen Saturati on Low Test N/A ACCEPTAB Arterial Blood A-Line Right Radial Gas Puncture Site Arterial 0.3 0.3 Blood Carboxyhe moglobin Arterial Blood 0.2 0.2 Methemoglobin Blood Gas A-a 388.8 H 240.3 H O2 Differential Oxyhemoglobin 98.6 96.7 Percent Blood Gas 37.0 37.0 Temperature Blood Gas 20.0 20.0 Respiration Rate Blood Gas 21 24 Actual Respiration Rat e Blood Gas VENT - AC VENT - AC Modality FiO2 100.0 50.0 Blood Gas Tidal 450.0 450.0 Volume Blood Gas Low 5.0 5.0 PEEP Setting Blood Gas 25.0 Inspiratory Pressure Blood Gas S.H. DT Notified Whom Blood Gas 07/25/2018 4:53: 07/25/2018 8:28 Notified Time 03 AM :53 AM Lab Scanned BLOOD TRANSFUSI Report ON White Blood 21.5 H Count Red Blood Count 3.03 #L Hemoglobin 9.4 L Hematocrit 28.5 L Mean 94.1 Corpuscular Volume Mean 31.0 Corpuscular Hemoglobin Mean 33.0 Corpuscular Hemoglobin Conc ent Red Cell 19.2 H Distribution Width Platelet Count 150 Mean Platelet 11.6 H Volume Immature 0.900 H Granulocytes % Neutrophils % Segmented 56 Neutrophils % (Manual) Band 26 H Neutrophils % (Manual) Lymphocytes % Lymphocytes % 13 L (Manual) Monocytes % Monocytes % 5 (Manual) Eosinophils % Basophils % Nucleated Red 0.7 H Blood Cells % Immature 0.200 H Granulocytes # Neutrophils # Neutrophils # 13.2 H (Manual) Band 5.5 H Neutrophils # Lymphocytes 2.7 (Manual) Lymphocytes # Monocytes # Monocytes # 1.0 H (Manual) Eosinophils # Basophils # Nucleated Red Blood Cells # Platelet NORMAL Estimate Giant Platelets 4 H Hypochromasia 1+ Poikilocytosis 2+ Anisocytosis 1+ Macrocytosis 1+ Target Cells 1+ Elliptocytes 1+ Sodium Level 143 Potassium Level 3.3 L Chloride Level 106 Carbon Dioxide 26 Level Anion Gap 11 Blood Urea 20 Nitrogen Creatinine 1.98 H Est Glomerular Filtrat Rate mL/min Glucose Level 165 Calcium Level 8.1 L Creatine Kinase 747 H Creatine Kinase 2.0 Index Creatinine 14.90 H Kinase MB (Mass) Troponin I 19.800 *H Blood Gas Y KODY VRN Critical Value Read Back Test 07/25/18 09:30 Bedside Glucose 214 Medications Medications Current Medications Atorvastatin Calcium (Lipitor) 40 mg QHS PO Last administered on 07/24/18 21:45; Admin Dose 40 MG; Start 07/14/18 at 21:00 Multivit/Ca Carb/ B Cmplx/FA/Prenat (Shyann-Raj) 1 tab DAILY PO Last administered on 07/25/18 09:32; Admin Dose 1 TAB; Start 07/14/18 at 09:00 Tramadol HCl (Ultram) 50 mg TID PRN PO PAIN LEVEL 6-10 Last administered on 07/24/18 03:35; Admin Dose 50 MG; Start 07/13/18 at 23:30 Acetaminophen (Tylenol Tab) 650 mg Q6H PRN PO MILD PAIN(1-3)OR ELEVATED TEMP; Start 07/13/18 at 23:30 Hydralazine HCl (Apresoline) 20 mg Q6H PRN IV sbp over 170 Last administered on 07/14/18 11:56; Admin Dose 20 MG; Start 07/13/18 at 23:30 Miscellaneous Information 1 ea NOTE XX ; Start 07/13/18 at 23:30 Glucose (Glutose) 15 gm Q15M PRN PO DECREASED GLUCOSE; Start 07/13/18 at 23:30 Glucose (Glutose) 22.5 gm Q15M PRN PO DECREASED GLUCOSE; Start 07/13/18 at 23:30 Dextrose (D50w Syringe) 25 ml Q15M PRN IV DECREASED GLUCOSE Last administered on 07/24/18at 08:19; Admin Dose 25 ML; Start 07/13/18 at 23:30 Dextrose (D50w Syringe) 50 ml Q15M PRN IV DECREASED GLUCOSE; Start 07/13/18 at 23:30 Glucagon (Glucagen) 1 mg Q15M PRN IM DECREASED GLUCOSE; Start 07/13/18 at 23:30 Glucose (Glutose) 15 gm Q15M PRN BUCCAL DECREASED GLUCOSE; Start 07/13/18 at 23:30 Ondansetron HCl (Zofran Inj) 4 mg Q4H PRN IV NAUSEA AND/OR VOMITING Last administered on 07/23/18at 16:30; Admin Dose 4 MG; Start 07/14/18 at 00:30 Miscellaneous Information (Pending Santyl Order For Wound Care) This patient easley... PRN PRN XX WOUND CARE; Start 07/14/18 at 04:30 Heparin Sodium (Porcine) (Heparin (1000 Units/ml)) 4,000 unit AFTER DIALYSIS CATHETER Last administered on 07/20/18at 17:15; Admin Dose 3,400 UNIT; Start 07/17/18 at 12:30 Diagnostic Test (Pha) (Accu-Chek) 1 ea 02 XX Last administered on 07/22/18at 02:17; Admin Dose 1 EA; Start 07/19/18 at 02:00 IV Flush (NS 3 ml) 3 ml PER PROTOCOL IV ; Start 07/20/18 at 11:30 Acetaminophen/ Hydrocodone Bitart ([place] (5/325)) 1 tab Q3H PRN PO MODERATE PAIN LEVEL 4-6 Last administered on 07/21/18at 12:47; Admin Dose 1 TAB; Start 07/20/18 at 11:30 Calcium/Vitamin D (Oyster Shell/ Vit-D (500/200)) 1 tab BID PO Last administered on 07/25/18at 09:32; Admin Dose 1 TAB; Start 07/20/18 at 21:00 Metoprolol Tartrate (Lopressor) 5 mg Q4H PRN IV HR > 110; Hold if SBP < 100 Last administered on 07/21/18 01:52; Admin Dose 5 MG; Start 07/21/18 at 02:00 Hydromorphone HCl (Dilaudid) 1 mg Q4H PRN IV SEVERE PAIN LEVEL 7-10 Last administered on 07/23/18 21:37; Admin Dose 1 MG; Start 07/23/18 at 22:00 Metoclopramide HCl (Reglan) 10 mg Q6H PRN IV NAUSEA AND/OR VOMITING Last administered on 07/23/18 21:37; Admin Dose 10 MG; Start 07/23/18 at 20:30 Ceftriaxone Sodium 50 ml @ 100 mls/hr Q24H IVPB Last administered on 07/24/18 11:30; Admin Dose 100 MLS/HR; Start 07/24/18 at 11:00 Pantoprazole 80 mg/Sodium Chloride 100 ml @ 10 mls/hr Q10H IV Last administered on 07/25/18 02:15; Admin Dose 10 MLS/HR; Start 07/24/18 at 16:00 Norepinephrine 250 ml @ 1.875 mls/ hr TITRATE IV Last administered on 07/25/18 00:42; Admin Dose 37.5 MLS/HR; Start 07/24/18 at 11:00 Dextrose/Sodium Chloride 1,000 ml @ 20 mls/hr Q24H IV Last administered on 07/25/18 02:15; Admin Dose 70 MLS/HR; Start 07/24/18 at 11:30 Amiodarone HCl 900 mg/Dextrose 500 ml @ 0 mls/hr Q0M IV Last administered on 07/24/18 19:00; Admin Dose 33.33 MLS/HR; Start 07/24/18 at 19:30; Stop 07/25/18 at 19:29 Collagenase (Santyl) 1 applic DAILY TOP Last administered on 07/25/18 09:31; Admin Dose 1 APPLIC; Start 07/25/18 at 09:00 Morphine Sulfate (morphine) 2 mg Q2H PRN IV SEVERE PAIN LEVEL 7-10 Last administered on 07/25/18 03:55; Admin Dose 2 MG; Start 07/24/18 at 20:30; Stop 07/26/18 at 23:00 Phenylephrine HCl 80 mg/Dextrose 250 ml @ 18.75 mls/ hr TITRATE IV Last administered on 07/24/18at 22:31; Admin Dose 3.75 MLS/HR; Start 07/24/18 at 20:30 Insulin Aspart (Novolog Insulin Pen) NOVOLOG *MILD* ALGORI... Q4 SC Last administered on 07/25/18at 09:39; Admin Dose 2 UNIT; Start 07/24/18 at 21:00 Potassium Chloride 100 ml @ 50 mls/hr ONCE ONCE IVPB ; Start 07/25/18 at 09:30; Stop 07/25/18 at 11:29 Insulin Glargine (Lantus) 6 units DAILY@0800 SC ; Start 07/26/18 at 08:00 JUSTICE HARRISON Jul 25, 2018 10:18
[2018-07-25] MEDS: CEFTRIAXONE 1 GM/50 ML (PMX) 50 ML IVPB SCH (10:23)
--- NOTE | 2018-07-25 12:24 | CONS ---
Assessment/Plan Assessment/Plan Assessment/Plan (Daily) IMPRESSION: 1. Anemia, rule out gastrointestinal bleeding. 2. Status post pulseless electrical activity period and cardiac arrest. 3. Ventilator-dependent respiratory failure. 4. End-stage renal disease, on dialysis. 5. 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 6. Left stump bruises. 7. Ankle fracture. Plan Continue present care Resume feeding through the NG tube Patient is unstable for any endoscopy procedures and there is no active GI bleeding at this point Consultation Date/Type/Reason Admit Date/Time Jul 13, 2018 at 21:32 Initial Consult Date Requesting Provider: ADAM DUARTE MD Date/Time of Note DATE: 07/25/18 TIME: 12:23 24 HR Interval Summary Free Text/Dictation Patient awake follows commands No further bleeding as per the staff, NG tube aspirate is negative for blood Exam/Review of Systems Exam Vitals Vital Signs Date Temp Pulse Resp B/P (MAP) Pulse Ox O2 O2 Flow FiO2 Time Delivery Rate 07/25/18 87 25 95 50 08:42 07/25/18 110/49 Mechanical 07:45 (69) Ventilator 07/25/18 98.3 04:00 07/24/18 2.0 08:52 Intake and Output 07/24/18 07/24/18 07/25/18 1414:59 22:59 06:59 IntakeIntake Total 926.45 ml 1847.80 ml 1077.563 ml OutputOutput Total 600 ml 115 ml 15 ml BalanceBalance 326.45 ml 1732.80 ml 1062.563 ml Constitutional: alert Head: normocephalic ENMT: nl external ears & nose, nl lips & teeth, nl nasal mucosa & septum Extremities: normal pulses Results Result Diagram: 07/25/18 0516 07/25/1816 Results 24hrs Laboratory Tests Test 07/24/18 17:56 07/24/18 18:42 07/24/18 19:27 07/24/18 21:21 Creatine Kinase 421 H Creatine Kinase 7.2 Index Creatinine 30.40 H Kinase MB (Mass) Troponin I 12.400 *H Bedside Glucose 180 139 Hemoglobin 9.8 #L Hematocrit 30.7 #L Test 07/24/18 21:52 07/25/18 00:49 07/25/18 01:05 07/25/18 04:43 Bedside Glucose 153 209 150 Creatine Kinase 519 H Creatine Kinase 3.7 Index Creatinine 19.30 H Kinase MB (Mass) Troponin I 19.100 *H Test 07/25/18 05:00 07/25/18 05:02 07/25/18 05:16 07/25/18 07:00 Blood Gas Blood arterial Blood Specimen arterial Source Arterial Blood 07/25/2018 4:40: 07/25/2018 7:59 Date Drawn 47 AM :29 AM Arterial Blood 7.545 H 7.625 *H pH (Temp corrected ) Arterial Blood 27.7 L 27.1 L pCO2 (Temp correct) Arterial Blood 296.5 H 85.7 pO2 (Temp corrected ) Arterial Blood 23.4 27.5 H HCO3 Arterial Blood 1.7 6.7 H Base Excess Arterial Blood 99.1 97.2 Oxygen Saturati on Low Test N/A ACCEPTAB Arterial Blood A-Line Right Radial Gas Puncture Site Arterial 0.3 0.3 Blood Carboxyhe moglobin Arterial Blood 0.2 0.2 Methemoglobin Blood Gas A-a 388.8 H 240.3 H O2 Differential Oxyhemoglobin 98.6 96.7 Percent Blood Gas 37.0 37.0 Temperature Blood Gas 20.0 20.0 Respiration Rate Blood Gas 21 24 Actual Respiration Rat e Blood Gas VENT - AC VENT - AC Modality FiO2 100.0 50.0 Blood Gas Tidal 450.0 450.0 Volume Blood Gas Low 5.0 5.0 PEEP Setting Blood Gas 25.0 Inspiratory Pressure Blood Gas S.H. DT Notified Whom Blood Gas 07/25/2018 4:53: 07/25/2018 8:28 Notified Time 03 AM :53 AM Lab Scanned BLOOD TRANSFUSI Report ON White Blood 21.5 H Count Red Blood Count 3.03 #L Hemoglobin 9.4 L Hematocrit 28.5 L Mean 94.1 Corpuscular Volume Mean 31.0 Corpuscular Hemoglobin Mean 33.0 Corpuscular Hemoglobin Conc ent Red Cell 19.2 H Distribution Width Platelet Count 150 Mean Platelet 11.6 H Volume Immature 0.900 H Granulocytes % Neutrophils % Segmented 56 Neutrophils % (Manual) Band 26 H Neutrophils % (Manual) Lymphocytes % Lymphocytes % 13 L (Manual) Monocytes % Monocytes % 5 (Manual) Eosinophils % Basophils % Nucleated Red 0.7 H Blood Cells % Immature 0.200 H Granulocytes # Neutrophils # Neutrophils # 13.2 H (Manual) Band 5.5 H Neutrophils # Lymphocytes 2.7 (Manual) Lymphocytes # Monocytes # Monocytes # 1.0 H (Manual) Eosinophils # Basophils # Nucleated Red Blood Cells # Platelet NORMAL Estimate Giant Platelets 4 H Hypochromasia 1+ Poikilocytosis 2+ Anisocytosis 1+ Macrocytosis 1+ Target Cells 1+ Elliptocytes 1+ Sodium Level 143 Potassium Level 3.3 L Chloride Level 106 Carbon Dioxide 26 Level Anion Gap 11 Blood Urea 20 Nitrogen Creatinine 1.98 H Est Glomerular Filtrat Rate mL/min Glucose Level 165 Calcium Level 8.1 L Creatine Kinase 747 H Creatine Kinase 2.0 Index Creatinine 14.90 H Kinase MB (Mass) Troponin I 19.800 *H Blood Gas Y KODY VRN Critical Value Read Back Test 07/25/18 09:30 Bedside Glucose 214 Medications Medication Current Medications Atorvastatin Calcium (Lipitor) 40 mg QHS PO Last administered on 07/24/18at 21:45; Admin Dose 40 MG; Start 07/14/18 at 21:00 Multivit/Ca Carb/ B Cmplx/FA/Prenat (Shyann-Raj) 1 tab DAILY PO Last admi nistered on 07/25/18at 09:32; Admin Dose 1 TAB; Start 07/14/18 at 09:00 Tramadol HCl (Ultram) 50 mg TID PRN PO PAIN LEVEL 6-10 Last administered on 07/24/18at 03:35; Admin Dose 50 MG; Start 07/13/18 at 23:30 Acetaminophen (Tylenol Tab) 650 mg Q6H PRN PO MILD PAIN(1-3)OR ELEVATED TEMP; Start 07/13/18 at 23:30 Hydralazine HCl (Apresoline) 20 mg Q6H PRN IV sbp over 170 Last administered on 07/14/18at 11:56; Admin Dose 20 MG; Start 07/13/18 at 23:30 Miscellaneous Information 1 ea NOTE XX ; Start 07/13/18 at 23:30 Glucose (Glutose) 15 gm Q15M PRN PO DECREASED GLUCOSE; Start 07/13/18 at 23:30 Glucose (Glutose) 22.5 gm Q15M PRN PO DECREASED GLUCOSE; Start 07/13/18 at 23:30 Dextrose (D50w Syringe) 25 ml Q15M PRN IV DECREASED GLUCOSE Last administered on 07/24/18 08:19; Admin Dose 25 ML; Start 07/13/18 at 23:30 Dextrose (D50w Syringe) 50 ml Q15M PRN IV DECREASED GLUCOSE; Start 07/13/18 at 23:30 Glucagon (Glucagen) 1 mg Q15M PRN IM DECREASED GLUCOSE; Start 07/13/18 at 23:30 Glucose (Glutose) 15 gm Q15M PRN BUCCAL DECREASED GLUCOSE; Start 07/13/18 at 23:30 Ondansetron HCl (Zofran Inj) 4 mg Q4H PRN IV NAUSEA AND/OR VOMITING Last administered on 07/23/18 16:30; Admin Dose 4 MG; Start 07/14/18 at 00:30 Miscellaneous Information (Pending [facility] Order For Wound Care) This patient easley... PRN PRN XX WOUND CARE; Start 07/14/18 at 04:30 Heparin Sodium (Porcine) (Heparin (1000 Units/ml)) 4,000 unit AFTER DIALYSIS CATHETER Last administered on 07/20/18 17:15; Admin Dose 3,400 UNIT; Start 07/17/18 at 12:30 Diagnostic Test (Pha) (Accu-Chek) 1 ea 02 XX Last administered on 07/22/18 02:17; Admin Dose 1 EA; Start 07/19/18 at 02:00 IV Flush (NS 3 ml) 3 ml PER PROTOCOL IV ; Start 07/20/18 at 11:30 Acetaminophen/ Hydrocodone Bitart ([place] (5/325)) 1 tab Q3H PRN PO MODERATE PAIN LEVEL 4-6 Last administered on 07/21/18 12:47; Admin Dose 1 TAB; Start 07/20/18 at 11:30 Calcium/Vitamin D (Oyster Shell/ Vit-D (500/200)) 1 tab BID PO Last administered on 07/25/18 09:32; Admin Dose 1 TAB; Start 07/20/18 at 21:00 Metoprolol Tartrate (Lopressor) 5 mg Q4H PRN IV HR > 110; Hold if SBP < 100 Last administered on 07/21/18 01:52; Admin Dose 5 MG; Start 07/21/18 at 02:00 Hydromorphone HCl (Dilaudid) 1 mg Q4H PRN IV SEVERE PAIN LEVEL 7-10 Last administered on 07/23/18 21:37; Admin Dose 1 MG; Start 07/23/18 at 22:00 Metoclopramide HCl (Reglan) 10 mg Q6H PRN IV NAUSEA AND/OR VOMITING Last administered on 07/23/18 21:37; Admin Dose 10 MG; Start 07/23/18 at 20:30 Ceftriaxone Sodium 50 ml @ 100 mls/hr Q24H IVPB Last administered on 07/25/18 10:23; Admin Dose 100 MLS/HR; Start 07/24/18 at 11:00 Pantoprazole 80 mg/Sodium Chloride 100 ml @ 10 mls/hr Q10H IV Last administered on 07/25/18 11:38; Admin Dose 10 MLS/HR; Start 07/24/18 at 16:00 Norepinephrine 250 ml @ 1.875 mls/ hr TITRATE IV Last administered on 07/25/18 00:42; Admin Dose 37.5 MLS/HR; Start 07/24/18 at 11:00 Dextrose/Sodium Chloride 1,000 ml @ 20 mls/hr Q24H IV Last administered on 07/25/18 02:15; Admin Dose 70 MLS/HR; Start 07/24/18 at 11:30 Amiodarone HCl 900 mg/Dextrose 500 ml @ 0 mls/hr Q0M IV Last administered on 19:00; Admin Dose 33.33 MLS/HR; Start 07/24/18 at 19:30; Stop 07/25/18 at 19:29 Collagenase (Santyl) 1 applic DAILY TOP Last administered on 07/25/18 09:31; Admin Dose 1 APPLIC; Start 07/25/18 at 09:00 Morphine Sulfate (morphine) 2 mg Q2H PRN IV SEVERE PAIN LEVEL 7-10 Last administered on 07/25/18 03:55; Admin Dose 2 MG; Start 07/24/18 at 20:30; Stop 07/26/18 at 23:00 Phenylephrine HCl 80 mg/Dextrose 250 ml @ 18.75 mls/ hr TITRATE IV Last administered on 07/24/18 22:31; Admin Dose 3.75 MLS/HR; Start 07/24/18 at 20:30 Insulin Aspart (Novolog Insulin Pen) NOVOLOG *MILD* ALGORI... Q4 SC Last administered on 07/25/18at 09:39; Admin Dose 2 UNIT; Start 07/24/18 at 21:00 Insulin Glargine (Lantus) 6 units DAILY@0800 SC ; Start 07/26/18 at 08:00 GLORIA TURNER MD Jul 25, 2018 12:24
[2018-07-25] MEDS: PROPOFOL 100 ML IV SCH (13:54)
[2018-07-25] MEDS: PHENYLephrine 80 MG in DEXTROSE 5% 242 ML IV SCH ×2 (17:01→23:05)
[2018-07-25] MEDS: METOCLOPRAMIDE 10 MG INJ IV PRN (17:41)
[2018-07-25] MEDS ORDERED: AMIODARONE 900 MG in DEXTROSE 5% 482 ML IV SCH (21:00)
[2018-07-25] MEDS: ATORVASTATIN 40 MG TAB PO SCH (21:22)
--- NOTE | 2018-07-25 22:39 | PN ---
DATE: 07/25/2018 The patient obviously had a cardiac arrest on 07/24/2018, and the patient had to be intubated and had to be put on respirator and transferred down to ICU. The radiology evaluation of the left hip. At this time, revealed the presence of intertrochanteric fracture of the left hip at this time. Judging from the appearance the fracture seems to be almost like an insufficiency fracture from the extensiv e osteoporosis, and she will need surgical management of problems in the form of an open reduction an d internal fixation probably using gamma nail. However, because of her present medical condition the procedure have to be delayed until her overall condition is stable enough to tolerate the general an esthesia and surgical procedure. Dictated By: SCHUYLER DARNELL MD IK/NTS Conf#: [id number] DID#: [id number] CC: SAM KRUEGER MD;*EndCC*
[2018-07-26] VITALS (100 sets, daily range): BP systolic 86–137; BP diastolic 20–91; PULSE 61–78; RESP 11–29
[2018-07-26] MEDS: PROPOFOL 100 ML IV SCH ×3 (00:47→22:32)
[2018-07-26] MEDS: INSULIN ASPART [NOVOLOG] 3 ML PEN SC SCH ×6 (00:52→20:58)
[2018-07-26] MEDS: ACCU-CHEK XX SCH (02:00)
[2018-07-26] MEDS: DEXTROSE 5%-0.9% NACL 1,000 ML IV SCH (02:53)
[2018-07-26] MEDS: PHENYLephrine 80 MG in DEXTROSE 5% 242 ML IV SCH ×4 (05:02→20:57)
[2018-07-26] MEDS ORDERED: MAGNESIUM SULFATE 2 GM/50 ML 50 ML IVPB ONE (08:00)
[2018-07-26] MEDS ORDERED: INSULIN GLARGINE [LANTus] (100 UNITS/ML) SYG SC SCH (08:00)
[2018-07-26] MEDS: CALCIUM/VITAMIN D (500/200) TAB PO SCH ×2 (08:41→20:52)
[2018-07-26] MEDS: MULTIVIT/CA CARB/B CMPLX/FA TAB PO SCH (08:41)
[2018-07-26] MEDS: BALSAM PERU/CASTOR OIL 60 GM TUBE TOP SCH ×2 (08:41→21:39)
[2018-07-26] MEDS: COLLAGENASE 5 GM (UD JAR) TOP SCH (08:41)
[2018-07-26] MEDS ORDERED: POTASSIUM PHOSPHATE 10 MM in SOD CHLORIDE 0.9% 250 ML IVPB ONE (09:00)
[2018-07-26] MEDS: PANTOPRAZOLE IV 80 MG in SOD CHLORIDE 0.9% 100 ML IV SCH (09:41)
--- NOTE | 2018-07-26 10:10 | PN ---
Date/Time of Note Date/Time of Note DATE: 07/26/18 TIME: 10:10 Assessment/Plan VTE Prophylaxis Risk score (from Ns)>0 risk: 22 SCD applied (from [facility]): No SCD contraindicated: low risk/ambulating Pharmacological prophylaxis: NA/contraindicated Pharm contraindication: low risk/ambulating Lines/Catheters [facility] C[facility]ter Type (from [facility] A Line Urinary Cath still in place: Yes Reason Cath still needed: urinary retention Assessment/Plan Hospital Course 78 y/o with IMPRESSION: # Cardiac pulmonary arrest s/p vfib # Respiratory failure s/p intubation # Hypotension s/p shock? cardiac vs hypovolemic #LE me anemia likely to secondary to GI bleed H&H stable status post unit 2 units of blood # Hyperkalemia due to missed hemodialysis.due to fall # Acute comminuted fractures of the distal tibia and fibula that involve the distal tibiofibular joint. Distal tibia fracture extends to within 0.3 cm of the tibial plafond but does not involve the articular surface. The appearance is in keeping with an extra-articular Pilon fracture. #. Hyponatremia. resolved #. Metabolic acidosis. # Cardiomegaly and pulmonary edema. #. Aortic atherosclerosis. #. History of congestive heart failure. # History of diabetic retinopathy, nephropathy. #. Hypoalbuminemia. # The patient has right lower extremity brace.with fracture #. Left stump bruise now noticed to have a fracture on the left hip on the x-r ays # ? AFIB. # Congestive heart failure by x-ray, question systolic versus diastolic, l ikely acute on chronic given presentation. # elevated troponin in the setting of end-stage kidney disease # Epigastric pain r/o gastritis/ GB disease> CT scan was pending # elevated troponin in the setting of cardiac arrest downtrending Plan - S/P Code blue multiple CPR -Neurological status seems intact -decrease sedation - dc iv fkuids -Feeding as tolerated -DC the Protonix drip and change her to Protonix twice daily -Weaning as per pulmonary -H&H stable status post 2 units of blood -Dr. [place] was also called for fracture of the left hip> intervention currently as patient is unstable -Hold anticoagulation due to bleeding -HD tomorrow likely secondary to volume overload -Trop down trending - fu cardiac/pul recs Result Diagram: 07/26/18 0400 07/26/18 0400 Results 24hrs Laboratory Tests Test 07/25/18 13:48 07/25/18 17:03 07/25/18 21:27 07/26/18 00:45 Bedside Glucose 181 155 180 174 Test 07/26/18 04:00 07/26/18 04:59 07/26/18 07:00 07/26/18 08:20 White Blood Count 20.2 H Red Blood Count 2.87 L Hemoglobin 9.1 L Hematocrit 26.9 L Mean Corpuscular 93.7 Volume Mean Corpuscular 31.7 Hemoglobin Mean Corpuscular 33.8 Hemoglobin Concen t Red Cell 19.7 H Distribution Width Platelet Count 142 Mean Platelet 12.4 H Volume Immature 1.200 H Granulocytes % Neutrophils % Segmented 80 H Neutrophils % (Manual) Band Neutrophils 12 H % (Manual) Lymphocytes % Lymphocytes % 4 L (Manual) Monocytes % Monocytes % 4 (Manual) Eosinophils % Basophils % Nucleated Red 2 H Blood Cells % Immature 0.250 H Granulocytes # Neutrophils # Neutrophils # 16.6 H (Manual) Band Neutrophils 2.4 H # Lymphocytes 0.8 (Manual) Lymphocytes # Monocytes # Monocytes # 0.8 (Manual) Eosinophils # Basophils # Nucleated Red Blood Cells # Platelet Estimate NORMAL Giant Platelets 2 H Polychromasia 3+ Poikilocytosis 3+ Anisocytosis 2+ Microcytosis 1+ Macrocytosis 1+ Sodium Level 139 Potassium Level 3.6 Chloride Level 103 Carbon Dioxide 25 Level Anion Gap 11 Blood Urea 24 H Nitrogen Creatinine 2.46 H Est Glomerular Filtrat Rate mL/min Glucose Level 211 Calcium Level 8.0 L Phosphorus Level 1.6 L Magnesium Level 1.6 L Bedside Glucose 233 H Blood Gas Blood arterial Specimen Source Arterial Blood 07/26/2018 7:35:0 Date Drawn 2 AM Arterial Blood pH 7.474 H (Temp corrected) Arterial Blood 33.7 L pCO2 (Temp correct) Arterial Blood 95.5 H pO2 (Temp corrected) Arterial Blood 24.2 HCO3 Arterial Blood 0.9 Base Excess Arterial Blood 97.1 Oxygen Saturation Low Test N/A Arterial Blood A-Line Gas Puncture Site Arterial 0.1 Blood Carboxyhemo globin Arterial Blood 0.2 Methemoglobin Blood Gas A-a O2 150.9 H Differential Oxyhemoglobin 96.8 Percent Blood Gas 37.0 Temperature Blood Gas 14.0 Respiration Rate Blood Gas Actual 14 Respiration Rate Blood Gas VENT - AC Modality FiO2 40.0 Blood Gas Tidal 450.0 Volume Blood Gas Low 5.0 PEEP Setting Blood Gas TM Notified Whom Blood Gas 07/26/2018 7:59:5 Notified Time 8 AM Creatine Kinase 341 #H Creatine Kinase 1.3 Index Creatinine Kinase 4.49 H MB (Mass) Troponin I 10.000 *H Test 07/26/18 08:47 Bedside Glucose 238 H Subjective 24 Hr Interval Summary Free Text/Dictation cw low-dose Jake-Synephrine. Opens eyes however is little lethargic hb Globin is stable Exam/Review of Systems Exam Vitals Vital Signs Date Temp Pulse Resp B/P (MAP) Pulse Ox O2 O2 Flow FiO2 Time Delivery Rate 07/26/18 67 08:00 07/26/18 12 97/35 (55) 100 Mechanical 06:00 Ventilator 07/26/18 40 05:00 07/26/18 98.0 04:00 07/24/18 2.0 08:52 Intake and Output 07/25/18 07/25/18 07/26/18 1515:00 23:00 07:00 IntakeIntake Total 529.24 ml 1010.8 ml 750.90 ml OutputOutput Total 28 ml 25 ml 0 ml BalanceBalance 501.24 ml 985.8 ml 750.90 ml Exam Constitutional: intubated , on pressors Head: normocephalic Eyes: nl conjunctiva, other (left eye defect) Neck: supple Respiratory: clear to auscultation Gastrointestinal: soft Right leg status post fracture Left amputation rt permcath edema_ Results Results 24hrs Laboratory Tests Test 07/25/18 13:48 07/25/18 17:03 07/25/18 21:27 07/26/18 00:45 Bedside Glucose 181 155 180 174 Test 07/26/18 04:00 07/26/18 04:59 07/26/18 07:00 07/26/18 08:20 White Blood Count 20.2 H Red Blood Count 2.87 L Hemoglobin 9.1 L Hematocrit 26.9 L Mean Corpuscular 93.7 Volume Mean Corpuscular 31.7 Hemoglobin Mean Corpuscular 33.8 Hemoglobin Concen t Red Cell 19.7 H Distribution Width Platelet Count 142 Mean Platelet 12.4 H Volume Immature 1.200 H Granulocytes % Neutrophils % Segmented 80 H Neutrophils % (Manual) Band Neutrophils 12 H % (Manual) Lymphocytes % Lymphocytes % 4 L (Manual) Monocytes % Monocytes % 4 (Manual) Eosinophils % Basophils % Nucleated Red 2 H Blood Cells % Immature 0.250 H Granulocytes # Neutrophils # Neutrophils # 16.6 H (Manual) Band Neutrophils 2.4 H # Lymphocytes 0.8 (Manual) Lymphocytes # Monocytes # Monocytes # 0.8 (Manual) Eosinophils # Basophils # Nucleated Red Blood Cells # Platelet Estimate NORMAL Giant Platelets 2 H Polychromasia 3+ Poikilocytosis 3+ Anisocytosis 2+ Microcytosis 1+ Macrocytosis 1+ Sodium Level 139 Potassium Level 3.6 Chloride Level 103 Carbon Dioxide 25 Level Anion Gap 11 Blood Urea 24 H Nitrogen Creatinine 2.46 H Est Glomerular Filtrat Rate mL/min Glucose Level 211 Calcium Level 8.0 L Phosphorus Level 1.6 L Magnesium Level 1.6 L Bedside Glucose 233 H Blood Gas Blood arterial Specimen Source Arterial Blood 07/26/2018 7:35:0 Date Drawn 2 AM Arterial Blood pH 7.474 H (Temp corrected) Arterial Blood 33.7 L pCO2 (Temp correct) Arterial Blood 95.5 H pO2 (Temp corrected) Arterial Blood 24.2 HCO3 Arterial Blood 0.9 Base Excess Arterial Blood 97.1 Oxygen Saturation Low Test N/A Arterial Blood A-Line Gas Puncture Site Arterial 0.1 Blood Carboxyhemo globin Arterial Blood 0.2 Methemoglobin Blood Gas A-a O2 150.9 H Differential Oxyhemoglobin 96.8 Percent Blood Gas 37.0 Temperature Blood Gas 14.0 Respiration Rate Blood Gas Actual 14 Respiration Rate Blood Gas VENT - AC Modality FiO2 40.0 Blood Gas Tidal 450.0 Volume Blood Gas Low 5.0 PEEP Setting Blood Gas TM Notified Whom Blood Gas 07/26/2018 7:59:5 Notified Time 8 AM Creatine Kinase 341 #H Creatine Kinase 1.3 Index Creatinine Kinase 4.49 H MB (Mass) Troponin I 10.000 *H Test 07/26/18 08:47 Bedside Glucose 238 H Medications Medication Current Medications Atorvastatin Calcium (Lipitor) 40 mg QHS PO Last administered on 07/25/18at 21:22; Admin Dose 40 MG; Start 07/14/18 at 21:00 Multivit/Ca Carb/ B Cmplx/FA/Prenat (Shyann-Raj) 1 tab DAILY PO Last administered on 07/26/18at 08:41; Admin Dose 1 TAB; Start 07/14/18 at 09:00 Tramadol HCl (Ultram) 50 mg TID PRN PO PAIN LEVEL 6-10 Last administered on 07/24/18at 03:35; Admin Dose 50 MG; Start 07/13/18 at 23:30 Acetaminophen (Tylenol Tab) 650 mg Q6H PRN PO MILD PAIN(1-3)OR ELEVATED TEMP; Start 07/13/18 at 23:30 Hydralazine HCl (Apresoline) 20 mg Q6H PRN IV sbp over 170 Last administered on 07/14/18at 11:56; Admin Dose 20 MG; Start 07/13/18 at 23:30 Miscellaneous Information 1 ea NOTE XX ; Start 07/13/18 at 23:30 Glucose (Glutose) 15 gm Q15M PRN PO DECREASED GLUCOSE; Start 07/13/18 at 23:30 Glucose (Glutose) 22.5 gm Q15M PRN PO DECREASED GLUCOSE; Start 07/13/18 at 23:30 Dextrose (D50w Syringe) 25 ml Q15M PRN IV DECREASED GLUCOSE Last administered on 07/24/18at 08:19; Admin Dose 25 ML; Start 07/13/18 at 23:30 Dextrose (D50w Syringe) 50 ml Q15M PRN IV DECREASED GLUCOSE; Start 07/13/18 at 23:30 Glucagon (Glucagen) 1 mg Q15M PRN IM DECREASED GLUCOSE; Start 07/13/18 at 23:30 Glucose (Glutose) 15 gm Q15M PRN BUCCAL DECREASED GLUCOSE; Start 07/13/18 at 23:30 Ondansetron HCl (Zofran Inj) 4 mg Q4H PRN IV NAUSEA AND/OR VOMITING Last administered on 07/23/18at 16:30; Admin Dose 4 MG; Start 07/14/18 at 00:30 Miscellaneous Information [facility] This patient easley... PRN PRN XX WOUND CARE; Start 07/14/18 at 04:30 Heparin Sodium (Porcine) (Heparin (1000 Units/ml)) 4,000 unit AFTER DIALYSIS CATHETER Last administered on 07/20/18at 17:15; Admin Dose 3,400 UNIT; Start 07/17/18 at 12:30 Diagnostic Test (Pha) (Accu-Chek) 1 ea 02 XX Last administered on 07/22/18 02:17; Admin Dose 1 EA; Start 07/19/18 at 02:00 IV Flush (NS 3 ml) 3 ml PER PROTOCOL IV ; Start 07/20/18 at 11:30 Acetaminophen/ Hydrocodone Bitart ([place] (5/325)) 1 tab Q3H PRN PO MODERATE PAIN LEVEL 4-6 Last administered on 07/21/18 12:47; Admin Dose 1 TAB; Start 07/20/18 at 11:30 Calcium/Vitamin D (Oyster Shell/ Vit-D (500/200)) 1 tab BID PO Last adminis tered on 07/26/18 08:41; Admin Dose 1 TAB; Start 07/20/18 at 21:00 Metoprolol Tartrate (Lopressor) 5 mg Q4H PRN IV HR > 110; Hold if SBP < 100 Last administered on 07/21/18 01:52; Admin Dose 5 MG; Start 07/21/18 at 02:00 Hydromorphone HCl (Dilaudid) 1 mg Q4H PRN IV SEVERE PAIN LEVEL 7-10 Last adm inistered on 07/23/18 21:37; Admin Dose 1 MG; Start 07/23/18 at 22:00 Metoclopramide HCl (Reglan) 10 mg Q6H PRN IV NAUSEA AND/OR VOMITING Last administered on 07/25/18 17:41; Admin Dose 10 MG; Start 07/23/18 at 20:30 Ceftriaxone Sodium 50 ml @ 100 mls/hr Q24H IVPB Last administered on 07/25/18 10:23; Admin Dose 100 MLS/HR; Start 07/24/18 at 11:00 Pantoprazole 80 mg/Sodium Chloride 100 ml @ 10 mls/hr Q10H IV Last administered on 07/26/18 09:41; Admin Dose 10 MLS/HR; Start 07/24/18 at 16:00 Norepinephrine 250 ml @ 1.875 mls/ hr TITRATE IV Last administered on 07/25/18 00:42; Admin Dose 37.5 MLS/HR; Start 07/24/18 at 11:00 Dextrose/Sodium Chloride 1,000 ml @ 20 mls/hr Q24H IV Last administered on 07/26/18 02:53; Admin Dose 20 MLS/HR; Start 07/24/18 at 11:30 Collagenase (Santyl) 1 applic DAILY TOP Last administered on 07/26/18 08:41; Admin Dose 1 APPLIC; Start 07/25/18 at 09:00 Morphine Sulfate (morphine) 2 mg Q2H PRN IV SEVERE PAIN LEVEL 7-10 Last administered on 07/25/18 03:55; Admin Dose 2 MG; Start 07/24/18 at 20:30; Stop 07/26/18 at 23:00 Phenylephrine HCl 80 mg/Dextrose 250 ml @ 18.75 mls/ hr TITRATE IV Last administered on 07/26/18 05:02; Admin Dose 44.06 MLS/HR; Start 07/24/18 at 20:30 Insulin Aspart (Novolog Insulin Pen) NOVOLOG *MILD* ALGORI... Q4 SC Last administered on 07/26/18 08:50; Admin Dose 3 UNIT; Start 07/24/18 at 21:00 Insulin Glargine (Lantus) 6 units DAILY@0800 SC Last administered on 07/26/18 08:49; Admin Dose 6 UNITS; Start 07/26/18 at 08:00 Propofol 100 ml @ 1.851 mls/ hr Q12H IV Last administered on 07/26/18 00:47; Admin Dose 1.851 MLS/HR; Start 07/25/18 at 13:00 Amiodarone HCl 900 mg/Dextrose 500 ml @ 0 mls/hr Q0M IV Last administered on 07/26/18 07:08; Admin Dose 16.7 MLS/HR; Start 07/25/18 at 21:00; Stop 07/26/18 at 20:59 Potassium Phosphate 10 mm/ Sodium Chloride 253.3333 ml @ 63.333 m... ONCE ONCE IVPB Last administered on 07/26/18 08:42; Admin Dose 63.333 MLS/HR; Start 07/26/18 at 09:00; Stop 07/26/18 at 12:59 ADAM DUARTE MD Jul 26, 2018 10:10
--- NOTE | 2018-07-26 11:04 | CONS ---
Consult Date/Type/Reason Admit Date/Time Jul 13, 2018 at 21:32 Initial Consult Date Type of Consult Pulmonary Requesting Provider: ADAM DUARTE MD Date/Time of Note DATE: 07/26/18 TIME: 11:03 Subjective Patient continues mechanical ventilation. Grimaces to painful stimuli but not consistently opening eyes or following commands. Still on vasopressor support. Objective Vital Signs Date Temp Pulse Resp B/P (MAP) Pulse Ox O2 O2 Flow FiO2 Time Delivery Rate 07/26/18 63 14 99/33 (55) 100 10:30 07/26/18 Mechanical 10:00 Ventilator 07/26/18 40 08:00 07/26/18 98.5 08:00 07/24/18 2.0 08:52 Intake and Output 07/25/18 07/25/18 07/26/18 1515:00 23:00 07:00 IntakeIntake Total 529.24 ml 1010.8 ml 750.90 ml OutputOutput Total 28 ml 25 ml 0 ml BalanceBalance 501.24 ml 985.8 ml 750.90 ml Exam PHYSICAL EXAMINATION: GENERAL: Chronically ill appearing lady on mechanical ventilation. VITAL SIGNS: Opens eyes attempting to communicate. NECK: Supple. No JVD or lymphadenopathy. CARDIAC: S1, S2, no added sounds or murmurs. CHEST: Diminished air entry bilaterally. ABDOMEN: Soft, nontender. No guarding or rebound. EXTREMITIES: No cyanosis, clubbing or edema. NEUROLOGIC: Unable to assess. Vent Setting Ventilator Support Mode: AC Fraction of Inspired Oxygen pe: 40 Positive End Expiratory Pressu: 5.0 Results/Medications Result Diagram: 07/26/18 0400 07/26/18 0400 Results 24 hrs Laboratory Tests Test 07/25/18 13:48 07/25/18 17:03 07/25/18 21:27 07/26/18 00:45 Bedside Glucose 181 155 180 174 Test 07/26/18 04:00 07/26/18 04:59 07/26/18 07:00 07/26/18 08:20 White Blood Count 20.2 H Red Blood Count 2.87 L Hemoglobin 9.1 L Hematocrit 26.9 L Mean Corpuscular 93.7 Volume Mean Corpuscular 31.7 Hemoglobin Mean Corpuscular 33.8 Hemoglobin Concen t Red Cell 19.7 H Distribution Width Platelet Count 142 Mean Platelet 12.4 H Volume Immature 1.200 H Granulocytes % Neutrophils % Segmented 80 H Neutrophils % (Manual) Band Neutrophils 12 H % (Manual) Lymphocytes % Lymphocytes % 4 L (Manual) Monocytes % Monocytes % 4 (Manual) Eosinophils % Basophils % Nucleated Red 2 H Blood Cells % Immature 0.250 H Granulocytes # Neutrophils # Neutrophils # 16.6 H (Manual) Band Neutrophils 2.4 H # Lymphocytes 0.8 (Manual) Lymphocytes # Monocytes # Monocytes # 0.8 (Manual) Eosinophils # Basophils # Nucleated Red Blood Cells # Platelet Estimate NORMAL Giant Platelets 2 H Polychromasia 3+ Poikilocytosis 3+ Anisocytosis 2+ Microcytosis 1+ Macrocytosis 1+ Sodium Level 139 Potassium Level 3.6 Chloride Level 103 Carbon Dioxide 25 Level Anion Gap 11 Blood Urea 24 H Nitrogen Creatinine 2.46 H Est Glomerular Filtrat Rate mL/min Glucose Level 211 Calcium Level 8.0 L Phosphorus Level 1.6 L Magnesium Level 1.6 L Bedside Glucose 233 H Blood Gas Blood arterial Specimen Source Arterial Blood 07/26/2018 7:35:0 Date Drawn 2 AM Arterial Blood pH 7.474 H (Temp corrected) Arterial Blood 33.7 L pCO2 (Temp correct) Arterial Blood 95.5 H pO2 (Temp corrected) Arterial Blood 24.2 HCO3 Arterial Blood 0.9 Base Excess Arterial Blood 97.1 Oxygen Saturation Low Test N/A Arterial Blood A-Line Gas Puncture Site Arterial 0.1 Blood Carboxyhemo globin Arterial Blood 0.2 Methemoglobin Blood Gas A-a O2 150.9 H Differential Oxyhemoglobin 96.8 Percent Blood Gas 37.0 Temperature Blood Gas 14.0 Respiration Rate Blood Gas Actual 14 Respiration Rate Blood Gas VENT - AC Modality FiO2 40.0 Blood Gas Tidal 450.0 Volume Blood Gas Low 5.0 PEEP Setting Blood Gas TM Notified Whom Blood Gas 07/26/2018 7:59:5 Notified Time 8 AM Creatine Kinase 341 #H Creatine Kinase 1.3 Index Creatinine Kinase 4.49 H MB (Mass) Troponin I 10.000 *H Test 07/26/18 08:47 Bedside Glucose 238 H Medications Current Medications Atorvastatin Calcium (Lipitor) 40 mg QHS PO Last administered on 07/25/18at 21:22; Admin Dose 40 MG; Start 07/14/18 at 21:00 Multivit/Ca Carb/ B Cmplx/FA/Prenat (Shyann-Raj) 1 tab DAILY PO Last administered on 07/26/18at 08:41; Admin Dose 1 TAB; Start 07/14/18 at 09:00 Tramadol HCl (Ultram) 50 mg TID PRN PO PAIN LEVEL 6-10 Last administered on 07/24/18at 03:35; Admin Dose 50 MG; Start 07/13/18 at 23:30 Acetaminophen (Tylenol Tab) 650 mg Q6H PRN PO MILD PAIN(1-3)OR ELEVATED TEMP; Start 07/13/18 at 23:30 Hydralazine HCl (Apresoline) 20 mg Q6H PRN IV sbp over 170 Last administered on 07/14/18at 11:56; Admin Dose 20 MG; Start 07/13/18 at 23:30 Miscellaneous Information 1 ea NOTE XX ; Start 07/13/18 at 23:30 Glucose (Glutose) 15 gm Q15M PRN PO DECREASED GLUCOSE; Start 07/13/18 at 23:30 Glucose (Glutose) 22.5 gm Q15M PRN PO DECREASED GLUCOSE; Start 07/13/18 at 23:30 Dextrose (D50w Syringe) 25 ml Q15M PRN IV DECREASED GLUCOSE Last administered on 07/24/18at 08:19; Admin Dose 25 ML; Start 07/13/18 at 23:30 Dextrose (D50w Syringe) 50 ml Q15M PRN IV DECREASED GLUCOSE; Start 07/13/18 at 23:30 Glucagon (Glucagen) 1 mg Q15M PRN IM DECREASED GLUCOSE; Start 07/13/18 at 23:30 Glucose (Glutose) 15 gm Q15M PRN BUCCAL DECREASED GLUCOSE; Start 07/13/18 at 23:30 Ondansetron HCl (Zofran Inj) 4 mg Q4H PRN IV NAUSEA AND/OR VOMITING Last administered on 07/23/18at 16:30; Admin Dose 4 MG; Start 07/14/18 at 00:30 Miscellaneous Information (Pending [facility] Order For Wound Care) This patient easley. .. PRN PRN XX WOUND CARE; Start 07/14/18 at 04:30 Heparin Sodium (Porcine) (Heparin (1000 Units/ml)) 4,000 unit AFTER DIALYSIS CATHETER Last administered on 07/20/18at 17:15; Admin Dose 3,400 UNIT; Start 07/17/18 at 12:30 Diagnostic Test (Pha) (Accu-Chek) 1 ea 02 XX Last administered on 07/22/18 02 :17; Admin Dose 1 EA; Start 07/19/18 at 02:00 IV Flush (NS 3 ml) 3 ml PER PROTOCOL IV ; Start 07/20/18 at 11:30 Calcium/Vitamin D (Oyster Shell/ Vit-D (500/200)) 1 tab BID PO Last administered on 07/26/18 08:41; Admin Dose 1 TAB; Start 07/20/18 at 21:00 Metoprolol Tartrate (Lopressor) 5 mg Q4H PRN IV HR > 110; Hold if SBP < 100 Last administered on 07/21/18 01:52; Admin Dose 5 MG; Start 07/21/18 at 02:00 Hydromorphone HCl (Dilaudid) 1 mg Q4H PRN IV SEVERE PAIN LEVEL 7-10 Last administered on 07/23/18 21:37; Admin Dose 1 MG; Start 07/23/18 at 22:00 Metoclopramide HCl (Reglan) 10 mg Q6H PRN IV NAUSEA AND/OR VOMITING Last administered on 07/25/18 17:41; Admin Dose 10 MG; Start 07/23/18 at 20:30 Ceftriaxone Sodium 50 ml @ 100 mls/hr Q24H IVPB Last administered on 07/25/18 10:23; Admin Dose 100 MLS/HR; Start 07/24/18 at 11:00 Norepinephrine 250 ml @ 1.875 mls/ hr TITRATE IV Last administered on 07/25/18 00:42; Admin Dose 37.5 MLS/HR; Start 07/24/18 at 11:00 Collagenase (Santyl) 1 applic DAILY TOP Last administered on 07/26/18 08:41; Admin Dose 1 APPLIC; Start 07/25/18 at 09:00 Phenylephrine HCl 80 mg/Dextrose 250 ml @ 18.75 mls/ hr TITRATE IV Last administered on 07/26/18 10:56; Admin Dose 43.13 MLS/HR; Start 07/24/18 at 20:30 Insulin Aspart (Novolog Insulin Pen) NOVOLOG *MILD* ALGORI... Q4 SC Last administered on 2/15/19at 08:50; Admin Dose 3 UNIT; Start 07/24/18 at 21:00 Propofol 100 ml @ 1.851 mls/ hr Q12H IV Last administered on 07/26/18at 00:47; Admin Dose 1.851 MLS/HR; Start 07/25/18 at 13:00 Amiodarone HCl 900 mg/Dextrose 500 ml @ 0 mls/hr Q0M IV Last administered on 07/26/18at 07:08; Admin Dose 16.7 MLS/HR; Start 07/25/18 at 21:00; Stop 07/26/18 at 20:59 Potassium Phosphate 10 mm/ Sodium Chloride 253.3333 ml @ 63.333 m... ONCE ONCE IVPB Last administered on 07/26/18at 08:42; Admin Dose 63.333 MLS/HR; Start 07/26/18 at 09:00; Stop 07/26/18 at 12:59 Pantoprazole (Protonix Iv) 40 mg BID@06,18 IV ; Start 07/26/18 at 18:00 Insulin Glargine (Lantus) 10 units DAILY@0800 SC ; Start 07/27/18 at 08:00 Fentanyl 100 ml @ 2.5 mls/hr TITRATE IV ; Start 07/26/18 at 11:00 Assessment/Plan Hospital Course (Demo Recall) IMPRESSION 1. Cardiopulmonary arrest. Prolonged CPR with ACLS protocol. 2. Multiple cardiopulmonary arrests and prolonged hypotension, despite this patient seems to be neurologically intact 3. End-stage renal failure on hemodialysis. 4. Possible aspiration pneumonia. 5. History of severe peripheral vascular disease. 6. Possible acute GI bleed given acute drop in hemoglobin prior to cardiac arrest Plan 1. Vasopressor support as needed. 2. Mechanical ventilation currently not stable for CPAP trials 3. Broad-spectrum antibiotic coverage for possible aspiration. 4. GI evaluation consider EGD and/or colonoscopy 5. DVT and GI prophylaxis. Critical care time 40 minutes. Prognosis guarded. DEVAN MIDDLETON MD, [facility] Jul 26, 2018 11:04
--- NOTE | 2018-07-26 11:50 | CONS ---
Assessment/Plan Assessment/Plan Assessment/Plan (Daily) Assessment/Plan (Daily) IMPRESSION: 1. Anemia, rule out gastrointestinal bleeding. 2. Status post pulseless electrical activity period and cardiac arrest. 3. Ventilator-dependent respiratory failure. 4. End-stage renal disease, on dialysis. 5. 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 6. Left stump bruises. 7. Ankle fracture. Plan Continue present care Resume feeding through the NG tube. Patient is tolerating feeding will increase to 35 cc/h Patient is unstable for any endoscopy procedures and there is no active GI bleeding at this point Consultation Date/Type/Reason Admit Date/Time Jul 13, 2018 at 21:32 Initial Consult Date Requesting Provider: ADAM DUARTE MD Date/Time of Note DATE: 07/26/18 TIME: 11:50 24 HR Interval Summary Subjective hx not possible: pt non-verbal, pt critical Constitutional: improved Exam/Review of Systems Exam Vitals Vital Signs Date Temp Pulse Resp B/P (MAP) Pulse Ox O2 O2 Flow FiO2 Time Delivery Rate 07/26/18 63 14 99/33 (55) 100 10:30 07/26/18 Mechanical 10:00 Ventilator 07/26/18 40 08:00 07/26/18 98.5 08:00 07/24/18 2.0 08:52 Intake and Output 07/25/18 07/25/18 07/26/18 1515:00 23:00 07:00 IntakeIntake Total 529.24 ml 1010.8 ml 855.062 ml OutputOutput Total 28 ml 25 ml 0 ml BalanceBalance 501.24 ml 985.8 ml 855.062 ml Respiratory: diminished breath sounds Cardiovascular: regular rate and rhythm, nl pulses Gastrointestinal: soft, nl liver, spleen, non-tender Musculoskeletal: nl extremities to inspection, nl gait and stance Results Result Diagram: 07/26/18 0400 07/26/18 0400 Results 24hrs Laboratory Tests Test 07/25/18 13:48 07/25/18 17:03 07/25/18 21:27 07/26/18 00:45 Bedside Glucose 181 155 180 174 Test 07/26/18 04:00 07/26/18 04:59 07/26/18 07:00 07/26/18 08:20 White Blood Count 20.2 H Red Blood Count 2.87 L Hemoglobin 9.1 L Hematocrit 26.9 L Mean Corpuscular 93.7 Volume Mean Corpuscular 31.7 Hemoglobin Mean Corpuscular 33.8 Hemoglobin Concen t Red Cell 19.7 H Distribution Width Platelet Count 142 Mean Platelet 12.4 H Volume Immature 1.200 H Granulocytes % Neutrophils % Segmented 80 H Neutrophils % (Manual) Band Neutrophils 12 H % (Manual) Lymphocytes % Lymphocytes % 4 L (Manual) Monocytes % Monocytes % 4 (Manual) Eosinophils % Basophils % Nucleated Red 2 H Blood Cells % Immature 0.250 H Granulocytes # Neutrophils # Neutrophils # 16.6 H (Manual) Band Neutrophils 2.4 H # Lymphocytes 0.8 (Manual) Lymphocytes # Monocytes # Monocytes # 0.8 (Manual) Eosinophils # Basophils # Nucleated Red Blood Cells # Platelet Estimate NORMAL Giant Platelets 2 H Polychromasia 3+ Poikilocytosis 3+ Anisocytosis 2+ Microcytosis 1+ Macrocytosis 1+ Sodium Level 139 Potassium Level 3.6 Chloride Level 103 Carbon Dioxide 25 Level Anion Gap 11 Blood Urea 24 H Nitrogen Creatinine 2.46 H Est Glomerular Filtrat Rate mL/min Glucose Level 211 Calcium Level 8.0 L Phosphorus Level 1.6 L Magnesium Level 1.6 L Bedside Glucose 233 H Blood Gas Blood arterial Specimen Source Arterial Blood 07/26/2018 7:35:0 Date Drawn 2 AM Arterial Blood pH 7.474 H (Temp corrected) Arterial Blood 33.7 L pCO2 (Temp correct) Arterial Blood 95.5 H pO2 (Temp corrected) Arterial Blood 24.2 HCO3 Arterial Blood 0.9 Base Excess Arterial Blood 97.1 Oxygen Saturation Low Test N/A Arterial Blood A-Line Gas Puncture Site Arterial 0.1 Blood Carboxyhemo globin Arterial Blood 0.2 Methemoglobin Blood Gas A-a O2 150.9 H Differential Oxyhemoglobin 96.8 Percent Blood Gas 37.0 Temperature Blood Gas 14.0 Respiration Rate Blood Gas Actual 14 Respiration Rate Blood Gas VENT - AC Modality FiO2 40.0 Blood Gas Tidal 450.0 Volume Blood Gas Low 5.0 PEEP Setting Blood Gas TM Notified Whom Blood Gas 07/26/2018 7:59:5 Notified Time 8 AM Creatine Kinase 341 #H Creatine Kinase 1.3 Index Creatinine Kinase 4.49 H MB (Mass) Troponin I 10.000 *H Test 07/26/18 08:47 Bedside Glucose 238 H Medications Medication Current Medications Atorvastatin Calcium (Lipitor) 40 mg QHS PO Last administered on 07/25/18at 21:22; Admin Dose 40 MG; Start 07/14/18 at 21:00 Multivit/Ca Carb/ B Cmplx/FA/Prenat (Shyann-Raj) 1 tab DAILY PO Last administered on 07/26/18at 08:41; Admin Dose 1 TAB; Start 07/14/18 at 09:00 Tramadol HCl (Ultram) 50 mg TID PRN PO PAIN LEVEL 6-10 Last administered on 07/24/18at 03:35; Admin Dose 50 MG; Start 07/13/18 at 23:30 Acetaminophen (Tylenol Tab) 650 mg Q6H PRN PO MILD PAIN(1-3)OR ELEVATED TEMP; Start 07/13/18 at 23:30 Hydralazine HCl (Apresoline) 20 mg Q6H PRN IV sbp over 170 Last administered on 07/14/18at 11:56; Admin Dose 20 MG; Start 07/13/18 at 23:30 Miscellaneous Information 1 ea NOTE XX ; Start 07/13/18 at 23:30 Glucose (Glutose) 15 gm Q15M PRN PO DECREASED GLUCOSE; Start 07/13/18 at 23:30 Glucose (Glutose) 22.5 gm Q15M PRN PO DECREASED GLUCOSE; Start 07/13/18 at 23:30 Dextrose (D50w Syringe) 25 ml Q15M PRN IV DECREASED GLUCOSE Last administered on 07/24/18at 08:19; Admin Dose 25 ML; Start 07/13/18 at 23:30 Dextrose (D50w Syringe) 50 ml Q15M PRN IV DECREASED GLUCOSE; Start 07/13/18 at 23:30 Glucagon (Glucagen) 1 mg Q15M PRN IM DECREASED GLUCOSE; Start 07/13/18 at 23:30 Glucose (Glutose) 15 gm Q15M PRN BUCCAL DECREASED GLUCOSE; Start 07/13/18 at 23:30 Ondansetron HCl (Zofran Inj) 4 mg Q4H PRN IV NAUSEA AND/OR VOMITING Last administered on 07/23/18at 16:30; Admin Dose 4 MG; Start 07/14/18 at 00:30 Miscellaneous Information (Pending [facility] Order For Wound Care) This patient easley... PRN PRN XX WOUND CARE; Start 07/14/18 at 04:30 Heparin Sodium (Porcine) (Heparin (1000 Units/ml)) 4,000 unit AFTER DIALYSIS CATHETER Last administered on 07/20/18 17:15; Admin Dose 3,400 UNIT; Start 07/17/18 at 12:30 Diagnostic Test (Pha) (Accu-Chek) 1 ea 02 XX Last administered on 07/22/18 02:17; Admin Dose 1 EA; Start 07/19/18 at 02:00 IV Flush (NS 3 ml) 3 ml PER PROTOCOL IV ; Start 07/20/18 at 11:30 Calcium/Vitamin D (Oyster Shell/ Vit-D (500/200)) 1 tab BID PO Last administered on 07/26/18 08:41; Admin Dose 1 TAB; Start 07/20/18 at 21:00 Metoprolol Tartrate (Lopressor) 5 mg Q4H PRN IV HR > 110; Hold if SBP < 100 Last administered on 07/21/18 01:52; Admin Dose 5 MG; Start 07/21/18 at 02:00 Hydromorphone HCl (Dilaudid) 1 mg Q4H PRN IV SEVERE PAIN LEVEL 7-10 Last administered on 07/23/18 21:37; Admin Dose 1 MG; Start 07/23/18 at 22:00 Metoclopramide HCl (Reglan) 10 mg Q6H PRN IV NAUSEA AND/OR VOMITING Last administered on 07/25/18 17:41; Admin Dose 10 MG; Start 07/23/18 at 20:30 Ceftriaxone Sodium 50 ml @ 100 mls/hr Q24H IVPB Last administered on 07/25/18 10:23; Admin Dose 100 MLS/HR; Start 07/24/18 at 11:00 Norepinephrine 250 ml @ 1.875 mls/ hr TITRATE IV Last administered on 07/25/18 00:42; Admin Dose 37.5 MLS/HR; Start 07/24/18 at 11:00 Collagenase (Santyl) 1 applic DAILY TOP Last administered on 07/26/18 08:41; Admin Dose 1 APPLIC; Start 07/25/18 at 09:00 Phenylephrine HCl 80 mg/Dextrose 250 ml @ 18.75 mls/ hr TITRATE IV Last administered on 2/15/19at 10:56; Admin Dose 43.13 MLS/HR; Start 07/24/18 at 20:30 Insulin Aspart (Novolog Insulin Pen) NOVOLOG *MILD* ALGORI... Q4 SC Last administered on 07/26/18at 08:50; Admin Dose 3 UNIT; Start 07/24/18 at 21:00 Propofol 100 ml @ 1.851 mls/ hr Q12H IV Last administered on 07/26/18at 00:47; Admin Dose 1.851 MLS/HR; Start 07/25/18 at 13:00 Amiodarone HCl 900 mg/Dextrose 500 ml @ 0 mls/hr Q0M IV Last administered on 07/26/18at 07:08; Admin Dose 16.7 MLS/HR; Start 07/25/18 at 21:00; Stop 07/26/18 at 20:59 Potassium Phosphate 10 mm/ Sodium Chloride 253.3333 ml @ 63.333 m... ONCE ONCE IVPB Last administered on 07/26/18at 08:42; Admin Dose 63.333 MLS/HR; Start 07/26/18 at 09:00; Stop 07/26/18 at 12:59 Pantoprazole (Protonix Iv) 40 mg BID@06,18 IV ; Start 07/26/18 at 18:00 Insulin Glargine (Lantus) 10 units DAILY@0800 SC ; Start 07/27/18 at 08:00 Fentanyl 100 ml @ 2.5 mls/hr TITRATE IV ; Start 07/26/18 at 11:00 GLORIA TURNER MD Jul 26, 2018 11:50
[2018-07-26] MEDS: CEFTRIAXONE 1 GM/50 ML (PMX) 50 ML IVPB SCH (11:57)
[2018-07-26] MEDS: FENTAnyl (DRIP) 1000 mcg/100mL 100 ML IV SCH (12:26)
--- NOTE | 2018-07-26 12:54 | CONS ---
Assessment/Plan Assessment/Plan Hospital Course (Demo Recall) IMP: 1. Preoperative for LE ORIF-NL EF by echo with mod-sev TR. Lexiscan with NL EF and partially reversible inferior wall defect. Thus patient has no cardiac contraindication to proceeding to OR on current medications but at moderate to high risk. Now post-op s/p ORIF 2.Positive troponin 3.BRadycardia to 40's/stable BP. S Misael- now improved with decrease in dose of clonidine and having short runs of tachycardia/SVT. ? Now in AF s/p code yesterday 4.HTN-uncontrolled at this time 5.ankle fracture 6.ESRD on HD 7. TR-mod-sev 8. ? sick euthyroid-elevated TSH and Free t4 9. Patient with PEA and VFA this am requiring ACLS and intubation protocol on onset during HD 10. anemia-acute drop. ? where bleeding,internal given abd pain. Now s/p transfusion PRBC's with stable Hgb today 11.PAF- in AF at this time. Reasonable rates on amiodarone 12. Nstemi- downtrending cardiac enzymes Recc -ICU -Continue Jake with weaning as tolerated -Contnue amiodarone -continue vent support -Hold ASA/systemic anticoag for AF given anemia requiring transfusions -transfuse PRBC's as necessary -HD as tolearted only -trend cardiac enzymes which are now downtrending Consultation Date/Type/Reason Admit Date/Time Jul 13, 2018 at 21:32 Initial Consult Date 07/16/18 Type of Consult Cardiology Reason for Consultation cardiac arrest Requesting Provider: ADAM DUARTE MD Date/Time of Note DATE: 07/26/18 TIME: 12:51 Exam/Review of Systems Vital Signs Vitals Vital Signs Date Temp Pulse Resp B/P (MAP) Pulse Ox O2 O2 Flow FiO2 Time Delivery Rate 07/26/18 63 14 99/33 (55) 100 10:30 07/26/18 Mechanical 10:00 Ventilator 07/26/18 40 08:00 07/26/18 98.5 08:00 07/24/18 2.0 08:52 Intake and Output 07/25/18 07/25/18 07/26/18 1515:00 23:00 07:00 IntakeIntake Total 529.24 ml 1010.8 ml 855.062 ml OutputOutput Total 28 ml 25 ml 0 ml BalanceBalance 501.24 ml 985.8 ml 855.062 ml Exam Exam Review of Systems: CONSTITUTIONAL: No fevers, chills. PULMONARY: No sob CARDIOVASCULAR: No chest pain/palpitations GASTROINTESTINAL: No nausea/vomiting. GENITOURINARY: No hematuria/dysuria. MUSCULOSKELETAL: No myagias/arthalgias. PSYCHIATRIC: The patient denies depression. NEUROLOGIC: No weakness Constitutional: other (sedated) Psych: no complaints Head: normocephalic ENMT: mucosa pink and moist, intubated Neck: supple, jvd (9 cm water) Respiratory: diminished breath sounds Cardiovascular: regular rate and rhythm Gastrointestinal: soft, non-tender Musculoskeletal: muscle weakness (generalized) Extremities: edema (trace/B) Neurological: other (No focal deficits) Labs Result Diagram: 07/26/18 0400 07/26/18 0400 Results 24hrs Laboratory Tests Test 07/25/18 13:48 07/25/18 17:03 07/25/18 21:27 07/26/18 00:45 Bedside Glucose 181 155 180 174 Test 07/26/18 04:00 07/26/18 04:59 07/26/18 07:00 07/26/18 08:20 White Blood Count 20.2 H Red Blood Count 2.87 L Hemoglobin 9.1 L Hematocrit 26.9 L Mean Corpuscular 93.7 Volume Mean Corpuscular 31.7 Hemoglobin Mean Corpuscular 33.8 Hemoglobin Concen t Red Cell 19.7 H Distribution Width Platelet Count 142 Mean Platelet 12.4 H Volume Immature 1.200 H Granulocytes % Neutrophils % Segmented 80 H Neutrophils % (Manual) Band Neutrophils 12 H % (Manual) Lymphocytes % Lymphocytes % 4 L (Manual) Monocytes % Monocytes % 4 (Manual) Eosinophils % Basophils % Nucleated Red 2 H Blood Cells % Immature 0.250 H Granulocytes # Neutrophils # Neutrophils # 16.6 H (Manual) Band Neutrophils 2.4 H # Lymphocytes 0.8 (Manual) Lymphocytes # Monocytes # Monocytes # 0.8 (Manual) Eosinophils # Basophils # Nucleated Red Blood Cells # Platelet Estimate NORMAL Giant Platelets 2 H Polychromasia 3+ Poikilocytosis 3+ Anisocytosis 2+ Microcytosis 1+ Macrocytosis 1+ Sodium Level 139 Potassium Level 3.6 Chloride Level 103 Carbon Dioxide 25 Level Anion Gap 11 Blood Urea 24 H Nitrogen Creatinine 2.46 H Est Glomerular Filtrat Rate mL/min Glucose Level 211 Calcium Level 8.0 L Phosphorus Level 1.6 L Magnesium Level 1.6 L Bedside Glucose 233 H Blood Gas Blood arterial Specimen Source Arterial Blood 07/26/2018 7:35:0 Date Drawn 2 AM Arterial Blood pH 7.474 H (Temp corrected) Arterial Blood 33.7 L pCO2 (Temp correct) Arterial Blood 95.5 H pO2 (Temp corrected) Arterial Blood 24.2 HCO3 Arterial Blood 0.9 Base Excess Arterial Blood 97.1 Oxygen Saturation Low Test N/A Arterial Blood A-Line Gas Puncture Site Arterial 0.1 Blood Carboxyhemo globin Arterial Blood 0.2 Methemoglobin Blood Gas A-a O2 150.9 H Differential Oxyhemoglobin 96.8 Percent Blood Gas 37.0 Temperature Blood Gas 14.0 Respiration Rate Blood Gas Actual 14 Respiration Rate Blood Gas VENT - AC Modality FiO2 40.0 Blood Gas Tidal 450.0 Volume Blood Gas Low 5.0 PEEP Setting Blood Gas TM Notified Whom Blood Gas 07/26/2018 7:59:5 Notified Time 8 AM Creatine Kinase 341 #H Creatine Kinase 1.3 Index Creatinine Kinase 4.49 H MB (Mass) Troponin I 10.000 *H Test 07/26/18 08:47 Bedside Glucose 238 H Medications Medications Current Medications Atorvastatin Calcium (Lipitor) 40 mg QHS PO Last administered on 07/25/18 21:22; Admin Dose 40 MG; Start 07/14/18 at 21:00 Multivit/Ca Carb/ B Cmplx/FA/Prenat (Shyann-Raj) 1 tab DAILY PO Last administered on 07/26/18at 08:41; Admin Dose 1 TAB; Start 07/14/18 at 09:00 Tramadol HCl (Ultram) 50 mg TID PRN PO PAIN LEVEL 6-10 Last administered on 07/24/18 03:35; Admin Dose 50 MG; Start 07/13/18 at 23:30 Acetaminophen (Tylenol Tab) 650 mg Q6H PRN PO MILD PAIN(1-3)OR ELEVATED TEMP; Start 07/13/18 at 23:30 Hydralazine HCl (Apresoline) 20 mg Q6H PRN IV sbp over 170 Last administered on 07/14/18at 11:56; Admin Dose 20 MG; Start 07/13/18 at 23:30 Miscellaneous Information 1 ea NOTE XX ; Start 07/13/18 at 23:30 Glucose (Glutose) 15 gm Q15M PRN PO DECREASED GLUCOSE; Start 07/13/18 at 23:30 Glucose (Glutose) 22.5 gm Q15M PRN PO DECREASED GLUCOSE; Start 07/13/18 at 23:30 Dextrose (D50w Syringe) 25 ml Q15M PRN IV DECREASED GLUCOSE Last administered on 07/24/18at 08:19; Admin Dose 25 ML; Start 07/13/18 at 23:30 Dextrose (D50w Syringe) 50 ml Q15M PRN IV DECREASED GLUCOSE; Start 07/13/18 at 23:30 Glucagon (Glucagen) 1 mg Q15M PRN IM DECREASED GLUCOSE; Start 07/13/18 at 23:30 Glucose (Glutose) 15 gm Q15M PRN BUCCAL DECREASED GLUCOSE; Start 07/13/18 at 23:30 Ondansetron HCl (Zofran Inj) 4 mg Q4H PRN IV NAUSEA AND/OR VOMITING Last adm inistered on 07/23/18at 16:30; Admin Dose 4 MG; Start 07/14/18 at 00:30 Miscellaneous Information ([facility]) This patient easley... PRN PRN XX WOUND CARE; Start 07/14/18 at 04:30 Heparin Sodium (Porcine) (Heparin (1000 Units/ml)) 4,000 unit AFTER DIALYSIS CATHETER Last administered on 07/20/18at 17:15; Admin Dose 3,400 UNIT; Start 07/17/18 at 12:30 Diagnostic Test (Pha) (Accu-Chek) 1 ea 02 XX Last administered on 07/22/18at 02:17; Admin Dose 1 EA; Start 07/19/18 at 02:00 IV Flush (NS 3 ml) 3 ml PER PROTOCOL IV ; Start 07/20/18 at 11:30 Calcium/Vitamin D (Oyster Shell/ Vit-D (500/200)) 1 tab BID PO Last administered on 07/26/18at 08:41; Admin Dose 1 TAB; Start 07/20/18 at 21:00 Metoprolol Tartrate (Lopressor) 5 mg Q4H PRN IV HR > 110; Hold if SBP < 100 Last administered on 07/21/18 01:52; Admin Dose 5 MG; Start 07/21/18 at 02:00 Hydromorphone HCl (Dilaudid) 1 mg Q4H PRN IV SEVERE PAIN LEVEL 7-10 Last administered on 07/23/18 21:37; Admin Dose 1 MG; Start 07/23/18 at 22:00 Metoclopramide HCl (Reglan) 10 mg Q6H PRN IV NAUSEA AND/OR VOMITING Last administered on 07/25/18 17:41; Admin Dose 10 MG; Start 07/23/18 at 20:30 Ceftriaxone Sodium 50 ml @ 100 mls/hr Q24H IVPB Last administered on 07/26/18 11:57; Admin Dose 100 MLS/HR; Start 07/24/18 at 11:00 Norepinephrine 250 ml @ 1.875 mls/ hr TITRATE IV Last administered on 07/25/18 00:42; Admin Dose 37.5 MLS/HR; Start 07/24/18 at 11:00 Collagenase (Santyl) 1 applic DAILY TOP Last administered on 07/26/18 08:41; Admin Dose 1 APPLIC; Start 07/25/18 at 09:00 Phenylephrine HCl 80 mg/Dextrose 250 ml @ 18.75 mls/ hr TITRATE IV Last administered on 07/26/18 10:56; Admin Dose 43.13 MLS/HR; Start 07/24/18 at 20:30 Insulin Aspart (Novolog Insulin Pen) NOVOLOG *MILD* ALGORI... Q4 SC Last administered on 07/26/18 08:50; Admin Dose 3 UNIT; Start 07/24/18 at 21:00 Propofol 100 ml @ 1.851 mls/ hr Q12H IV Last administered on 07/26/18 00:47; Admin Dose 1.851 MLS/HR; Start 07/25/18 at 13:00 Amiodarone HCl 900 mg/Dextrose 500 ml @ 0 mls/hr Q0M IV Last administered on 07/26/18 07:08; Admin Dose 16.7 MLS/HR; Start 07/25/18 at 21:00; Stop 07/26/18 at 20:59 Potassium Phosphate 10 mm/ Sodium Chloride 253.3333 ml @ 63.333 m... ONCE ONCE IVPB Last administered on 2/15/19at 08:42; Admin Dose 63.333 MLS/HR; Start 07/26/18 at 09:00; Stop 07/26/18 at 12:59 Pantoprazole (Protonix Iv) 40 mg BID@06,18 IV ; Start 07/26/18 at 18:00 Insulin Glargine (Lantus) 10 units DAILY@0800 SC ; Start 07/27/18 at 08:00 Fentanyl 100 ml @ 2.5 mls/hr TITRATE IV Last administered on 07/26/18at 12:26; Admin Dose 2.5 MLS/HR; Start 07/26/18 at 11:00 JUSTICE HARRISON Jul 26, 2018 12:54
[2018-07-26] MEDS: PANTOPRAZOLE 40 MG INJ IV SCH (17:49)
[2018-07-26] MEDS: ATORVASTATIN 40 MG TAB PO SCH (20:52)
[2018-07-26] MEDS: METOCLOPRAMIDE 10 MG INJ IV PRN (22:31)
[2018-07-27] VITALS (113 sets, daily range): BP systolic 69–140; BP diastolic 28–83; PULSE 55–100; RESP 6–33
[2018-07-27] MEDS: INSULIN ASPART [NOVOLOG] 3 ML PEN SC SCH ×6 (01:15→21:00)
[2018-07-27] MEDS: PHENYLephrine 80 MG in DEXTROSE 5% 242 ML IV SCH ×4 (01:17→19:01)
[2018-07-27] MEDS: ACCU-CHEK XX SCH (02:05)
[2018-07-27] MEDS: FENTAnyl (DRIP) 1000 mcg/100mL 100 ML IV SCH ×2 (02:27→22:10)
[2018-07-27] MEDS: PANTOPRAZOLE 40 MG INJ IV SCH ×2 (05:14→18:12)
[2018-07-27] MEDS: COLLAGENASE 5 GM (UD JAR) TOP SCH (08:27)
[2018-07-27] MEDS: MULTIVIT/CA CARB/B CMPLX/FA TAB PO SCH (08:27)
[2018-07-27] MEDS: CALCIUM/VITAMIN D (500/200) TAB PO SCH ×2 (08:27→21:44)
[2018-07-27] MEDS: BALSAM PERU/CASTOR OIL 60 GM TUBE TOP SCH ×2 (08:27→20:19)
[2018-07-27] MEDS: INSULIN GLARGINE [LANTus] (100 UNITS/ML) SYG SC SCH (08:31)
--- NOTE | 2018-07-27 09:56 | CONS ---
Consult Date/Type/Reason Admit Date/Time Jul 13, 2018 at 21:32 Initial Consult Date Type of Consult Pulmonary Requesting Provider: ADAM DUARTE MD Date/Time of Note DATE: 07/27/18 TIME: 09:55 Subjective Agitated off sedation. Continues mechanical ventilation currently still requiring vasopressor support. Continues fentanyl and propofol. Scheduled for hemodialysis today. Objective Vital Signs Date Temp Pulse Resp B/P (MAP) Pulse Ox O2 O2 Flow FiO2 Time Delivery Rate 07/27/18 61 8 121/41 100 Mechanical 09:00 (67) Ventilator 07/27/18 40 08:00 07/27/18 98.1 08:00 07/24/18 2.0 08:52 Intake and Output 07/26/18 07/26/18 07/27/18 1515:00 23:00 07:00 IntakeIntake Total 1191.538 ml 697.309 ml 469.117 ml OutputOutput Total 0 ml 0 ml 0 ml BalanceBalance 1191.538 ml 697.309 ml 469.117 ml Exam PHYSICAL EXAMINATION: GENERAL: Chronically ill appearing lady on mechanical ventilation. VITAL SIGNS: Opens eyes attempting to communicate. NECK: Supple. No JVD or lymphadenopathy. CARDIAC: S1, S2, no added sounds or murmurs. CHEST: Diminished air entry bilaterally. ABDOMEN: Soft, nontender. No guarding or rebound. EXTREMITIES: No cyanosis, clubbing or edema. NEUROLOGIC: Unable to assess. Vent Setting Ventilator Support Mode: AC Fraction of Inspired Oxygen pe: 40 Positive End Expiratory Pressu: 5.0 Results/Medications Result Diagram: 07/27/18 0450 07/27/18 0450 Results 24 hrs Laboratory Tests Test 07/26/18 13:20 07/26/18 17:24 07/26/18 20:51 07/27/18 01:10 Bedside Glucose 218 218 221 H 219 Test 07/27/18 02:03 07/27/18 04:50 07/27/18 05:16 07/27/18 07:00 Bedside Glucose 210 208 White Blood Count 21.1 H Red Blood Count 2.79 L Hemoglobin 9.0 L Hematocrit 26.9 L Mean Corpuscular 96.4 Volume Mean Corpuscular 32.3 Hemoglobin Mean Corpuscular 33.5 Hemoglobin Concen t Red Cell 19.4 H Distribution Width Platelet Count 115 L Mean Platelet 12.5 H Volume Immature 1.000 H Granulocytes % Neutrophils % 87.0 H Lymphocytes % 6.2 L Monocytes % 4.4 Eosinophils % 1.1 Basophils % 0.3 Nucleated Red 2.0 H Blood Cells % Immature 0.210 H Granulocytes # Neutrophils # 18.4 H Lymphocytes # 1.3 Monocytes # 0.9 Eosinophils # 0.2 Basophils # 0.1 Nucleated Red 0.4 H Blood Cells # Sodium Level 134 L Potassium Level 3.5 Chloride Level 100 Carbon Dioxide 24 Level Anion Gap 10 Blood Urea 28 H Nitrogen Creatinine 2.66 H Est Glomerular Filtrat Rate mL/min Glucose Level 208 Calcium Level 8.0 L Phosphorus Level 1.2 L Magnesium Level 2.1 Blood Gas Blood arterial Specimen Source Arterial Blood 07/27/2018 8:10:3 Date Drawn 9 AM Arterial Blood pH 7.475 H (Temp corrected) Arterial Blood 32.3 L pCO2 (Temp correct) Arterial Blood 96.0 H pO2 (Temp corrected) Arterial Blood 23.2 HCO3 Arterial Blood 0.1 Base Excess Arterial Blood 97.2 Oxygen Saturation Low Test N/A Arterial Blood A-Line Gas Puncture Site Arterial 0.3 Blood Carboxyhemo globin Arterial Blood 0.2 Methemoglobin Blood Gas A-a O2 152.1 H Differential Oxyhemoglobin 96.7 Percent Blood Gas 37.0 Temperature Blood Gas 14.0 Respiration Rate Blood Gas Actual 19 Respiration Rate Blood Gas VENT - AC Modality FiO2 40.0 Blood Gas Tidal 450.0 Volume Blood Gas Low 5.0 PEEP Setting Blood Gas Estefanía GARC[facility] Notified Whom Blood Gas 07/27/2018 8:30:2 Notified Time 1 AM Test 07/27/18 08:26 Bedside Glucose 185 Medications Current Medications Atorvastatin Calcium (Lipitor) 40 mg QHS PO Last administered on 07/26/18 20:52; Admin Dose 40 MG; Start 07/14/18 at 21:00 Multivit/Ca Carb/ B Cmplx/FA/Prenat (Shyann-Raj) 1 tab DAILY PO Last administered on 07/27/18 08:27; Admin Dose 1 TAB; Start 07/14/18 at 09:00 Tramadol HCl (Ultram) 50 mg TID PRN PO PAIN LEVEL 6-10 Last administered on 07/24/18 03:35; Admin Dose 50 MG; Start 07/13/18 at 23:30 Acetaminophen (Tylenol Tab) 650 mg Q6H PRN PO MILD PAIN(1-3)OR ELEVATED TEMP; Start 07/13/18 at 23:30 Hydralazine HCl (Apresoline) 20 mg Q6H PRN IV sbp over 170 Last administered on 07/14/18at 11:56; Admin Dose 20 MG; Start 07/13/18 at 23:30 Miscellaneous Information 1 ea NOTE XX ; Start 07/13/18 at 23:30 Glucose (Glutose) 15 gm Q15M PRN PO DECREASED GLUCOSE; Start 07/13/18 at 23:30 Glucose (Glutose) 22.5 gm Q15M PRN PO DECREASED GLUCOSE; Start 07/13/18 at 23:30 Dextrose (D50w Syringe) 25 ml Q15M PRN IV DECREASED GLUCOSE Last administered on 07/24/18at 08:19; Admin Dose 25 ML; Start 07/13/18 at 23:30 Dextrose (D50w Syringe) 50 ml Q15M PRN IV DECREASED GLUCOSE; Start 07/13/18 at 23:30 Glucagon (Glucagen) 1 mg Q15M PRN IM DECREASED GLUCOSE; Start 07/13/18 at 23:30 Glucose (Glutose) 15 gm Q15M PRN BUCCAL DECREASED GLUCOSE; Start 07/13/18 at 23:30 Ondansetron HCl (Zofran Inj) 4 mg Q4H PRN IV NAUSEA AND/OR VOMITING Last administered on 07/23/18at 16:30; Admin Dose 4 MG; Start 07/14/18 at 00:30 Miscellaneous Information (Pending [facility] Order For Wound Care) This patient easley... PRN PRN XX WOUND CARE; Start 07/14/18 at 04:30 Heparin Sodium (Porcine) (Heparin (1000 Units/ml)) 4,000 unit AFTER DIALYSIS CATHETER Last administered on 07/20/18at 17:15; Admin Dose 3,400 UNIT; Start 07/17/18 at 12:30 Diagnostic Test (Pha) (Accu-Chek) 1 ea 02 XX Last administered on 07/27/18at 02:05; Admin Dose 1 EA; Start 07/19/18 at 02:00 IV Flush (NS 3 ml) 3 ml PER PROTOCOL IV ; Start 07/20/18 at 11:30 Calcium/Vitamin D (Oyster Shell/ Vit-D (500/200)) 1 tab BID PO Last administered on 07/27/18 08:27; Admin Dose 1 TAB; Start 07/20/18 at 21:00 Metoprolol Tartrate (Lopressor) 5 mg Q4H PRN IV HR > 110; Hold if SBP < 100 Las t administered on 07/21/18 01:52; Admin Dose 5 MG; Start 07/21/18 at 02:00 Hydromorphone HCl (Dilaudid) 1 mg Q4H PRN IV SEVERE PAIN LEVEL 7-10 Last administered on 07/23/18 21:37; Admin Dose 1 MG; Start 07/23/18 at 22:00 Metoclopramide HCl (Reglan) 10 mg Q6H PRN IV NAUSEA AND/OR VOMITING Last ad ministered on 07/26/18 22:31; Admin Dose 10 MG; Start 07/23/18 at 20:30 Ceftriaxone Sodium 50 ml @ 100 mls/hr Q24H IVPB Last administered on 07/26/18 11:57; Admin Dose 100 MLS/HR; Start 07/24/18 at 11:00 Norepinephrine 250 ml @ 1.875 mls/ hr TITRATE IV Last administered on 07/25/18 00:42; Admin Dose 37.5 MLS/HR; Start 07/24/18 at 11:00 Collagenase (Santyl) 1 applic DAILY TOP Last administered on 07/27/18 08:27; Admin Dose 1 APPLIC; Start 07/25/18 at 09:00 Phenylephrine HCl 80 mg/Dextrose 250 ml @ 18.75 mls/ hr TITRATE IV Last administered on 07/27/18 06:21; Admin Dose 50.63 MLS/HR; Start 07/24/18 at 20:30 Insulin Aspart (Novolog Insulin Pen) NOVOLOG *MILD* ALGORI... Q4 SC Last a dministered on 07/27/18 08:29; Admin Dose 2 UNIT; Start 07/24/18 at 21:00 Propofol 100 ml @ 1.851 mls/ hr Q12H IV Last administered on 07/26/18 22:32; Admin Dose 1.851 MLS/HR; Start 07/25/18 at 13:00 Pantoprazole (Protonix Iv) 40 mg BID@06,18 IV Last administered on 07/27/18at 05:14; Admin Dose 40 MG; Start 07/26/18 at 18:00 Insulin Glargine (Lantus) 10 units DAILY@0800 SC Last administered on 07/27/18at 08:31; Admin Dose 10 UNITS; Start 07/27/18 at 08:00 Fentanyl 100 ml @ 2.5 mls/hr TITRATE IV Last administered on 07/27/18at 02:27; Admin Dose 8 MLS/HR; Start 07/26/18 at 11:00 Assessment/Plan Hospital Course (Demo Recall) IMPRESSION 1. Cardiopulmonary arrest. Prolonged CPR with ACLS protocol. 2. Multiple cardiopulmonary arrests and prolonged hypotension, despite this patient seems to be somewhat neurologically intact. 3. End-stage renal failure on hemodialysis. 4. Possible aspiration pneumonia. Septic shock. 5. History of severe peripheral vascular disease. 6. Possible acute GI bleed given acute drop in hemoglobin prior to cardiac arre st Plan 1. Vasopressor support as needed. 2. Mechanical ventilation currently not stable for CPAP trials 3. Broad-spectrum antibiotic coverage for possible aspiration. 4. GI evaluation consider EGD and/or colonoscopy 5. DVT and GI prophylaxis. Critical care time 40 minutes. Prognosis guarded. DEVAN MIDDLETON [facility] Jul 27, 2018 09:56
[2018-07-27] MEDS: PROPOFOL 100 ML IV SCH (12:49)
[2018-07-27] MEDS: CEFTRIAXONE 1 GM/50 ML (PMX) 50 ML IVPB SCH (12:49)
--- NOTE | 2018-07-27 13:43 | CONS ---
Consult Date/Type/Reason Admit Date/Time Jul 13, 2018 at 21:32 Initial Consult Date Requesting Provider: ADAM DUARTE MD Date/Time of Note DATE: 07/27/18 TIME: 13:39 Subjective NO acute events - completed amio gtt - remains in a. fib - rate controlled. Upper Extremity Edema - not anti-coagulated with bleeding - check US r/o DVT. ROS: No fever, no chills, no nausea, no vomiting, no diarrhea/constipation - per nurse Objective Vitals Vital Signs Date Temp Pulse Resp B/P (MAP) Pulse Ox O2 O2 Flow FiO2 Time Delivery Rate 07/27/18 64 12:00 07/27/18 8 121/41 100 Mechanical 09:00 (67) Ventilator 07/27/18 40 08:00 07/27/18 98.1 08:00 07/24/18 2.0 08:52 Intake and Output 07/26/18 07/26/18 07/27/18 1515:00 23:00 07:00 IntakeIntake Total 1191.538 ml 697.309 ml 469.117 ml OutputOutput Total 0 ml 0 ml 0 ml BalanceBalance 1191.538 ml 697.309 ml 469.117 ml Exam General: WN/WD/NAD, AOx 0 HEENT: Unicetric/atraumatic/EOMI (does not follow commands) NECK: JVD elevated, no thyromegaly - intubated Lymph: no lymphadenopathy HEART: irregular with no S3, II/ systolic murmur at apex LUNGS: Coarse sounds ABD: soft, NT, ND, +BS : Intact Neuro: non focal SKIN: chronic changes EXT: trace edema, UE edema Results/Medications Result Diagram: 07/27/1844907/27/180 Results 24 hrs Laboratory Tests Test 07/26/18 17:24 07/26/18 20:51 07/27/18 01:10 07/27/18 02:03 Bedside Glucose 218 221 H 219 210 Test 07/27/18 04:50 07/27/18 05:16 07/27/18 07:00 07/27/18 08:26 White Blood Count 21.1 H Red Blood Count 2.79 L Hemoglobin 9.0 L Hematocrit 26.9 L Mean Corpuscular 96.4 Volume Mean Corpuscular 32.3 Hemoglobin Mean Corpuscular 33.5 Hemoglobin Concen t Red Cell 19.4 H Distribution Width Platelet Count 115 L Mean Platelet 12.5 H Volume Immature 1.000 H Granulocytes % Neutrophils % 87.0 H Lymphocytes % 6.2 L Monocytes % 4.4 Eosinophils % 1.1 Basophils % 0.3 Nucleated Red 2.0 H Blood Cells % Immature 0.210 H Granulocytes # Neutrophils # 18.4 H Lymphocytes # 1.3 Monocytes # 0.9 Eosinophils # 0.2 Basophils # 0.1 Nucleated Red 0.4 H Blood Cells # Sodium Level 134 L Potassium Level 3.5 Chloride Level 100 Carbon Dioxide 24 Level Anion Gap 10 Blood Urea 28 H Nitrogen Creatinine 2.66 H Est Glomerular Filtrat Rate mL/min Glucose Level 208 Calcium Level 8.0 L Phosphorus Level 1.2 L Magnesium Level 2.1 Bedside Glucose 208 185 Blood Gas Blood arterial Specimen Source Arterial Blood 07/27/2018 8:10:3 Date Drawn 9 AM Arterial Blood pH 7.475 H (Temp corrected) Arterial Blood 32.3 L pCO2 (Temp correct) Arterial Blood 96.0 H pO2 (Temp corrected) Arterial Blood 23.2 HCO3 Arterial Blood 0.1 Base Excess Arterial Blood 97.2 Oxygen Saturation Low Test N/A Arterial Blood A-Line Gas Puncture Site Arterial 0.3 Blood Carboxyhemo globin Arterial Blood 0.2 Methemoglobin Blood Gas A-a O2 152.1 H Differential Oxyhemoglobin 96.7 Percent Blood Gas 37.0 Temperature Blood Gas 14.0 Respiration Rate Blood Gas Actual 19 Respiration Rate Blood Gas VENT - AC Modality FiO2 40.0 Blood Gas Tidal 450.0 Volume Blood Gas Low 5.0 PEEP Setting Blood Gas Estefanía GARCIA [facility] Notified Whom Blood Gas 07/27/2018 8:30:2 Notified Time 1 AM Home Meds Reported Medications Atorvastatin* (Atorvastatin*) 40 Mg Tablet, 40 MG PO QHS, #30 TAB 07/13/18 Carvedilol* (Carvedilol*) 3.125 Mg Tablet, 3.125 MG PO BID, #60 TAB 07/13/18 Tramadol HCl (Tramadol HCl) 50 Mg Tablet, 50 MG PO TID PRN for PAIN LEVEL 6-10, #90 TAB 07/13/18 Multivit/Ca Carb/B Cmplx/Fa* (Shyann-Raj*) 1 Tab Tab, 1 TAB PO DAILY, TAB 07/13/18 Isosorbide Mononitrate* (Isosorbide Mononitrate*) 60 Mg Tab.er.24h, 60 MG PO DAILY, TAB 07/13/18 Pantoprazole* (Protonix*) 20 Mg Tablet.dr, 20 MG PO DAILY, TAB 07/13/18 Clonidine Hcl* (Clonidine Hcl*) 0.1 Mg Tab, 0.1 MG PO BID, TAB 07/13/18 Aspirin (Aspir-Low) 81 Mg Tablet.dr, 81 MG PO DAILY 07/13/18 Medications Current Medications Atorvastatin Calcium (Lipitor) 40 mg QHS PO Last administered on 07/26/18at 20:52; Admin Dose 40 MG; Start 07/14/18 at 21:00 Multivit/Ca Carb/ B Cmplx/FA/Prenat (Shyann-Raj) 1 tab DAILY PO Last administered on 07/27/18at 08:27; Admin Dose 1 TAB; Start 07/14/18 at 09:00 Tramadol HCl (Ultram) 50 mg TID PRN PO PAIN LEVEL 6-10 Last administered on 07/24/18at 03:35; Admin Dose 50 MG; Start 07/13/18 at 23:30 Acetaminophen (Tylenol Tab) 650 mg Q6H PRN PO MILD PAIN(1-3)OR ELEVATED TEMP; Start 07/13/18 at 23:30 Hydralazine HCl (Apresoline) 20 mg Q6H PRN IV sbp over 170 Last administered on 07/14/18at 11:56; Admin Dose 20 MG; Start 07/13/18 at 23:30 Miscellaneous Information 1 ea NOTE XX ; Start 07/13/18 at 23:30 Glucose (Glutose) 15 gm Q15M PRN PO DECREASED GLUCOSE; Start 07/13/18 at 23:30 Glucose (Glutose) 22.5 gm Q15M PRN PO DECREASED GLUCOSE; Start 07/13/18 at 23:30 Dextrose (D50w Syringe) 25 ml Q15M PRN IV DECREASED GLUCOSE Last administered on 07/24/18at 08:19; Admin Dose 25 ML; Start 07/13/18 at 23:30 Dextrose (D50w Syringe) 50 ml Q15M PRN IV DECREASED GLUCOSE; Start 07/13/18 at 23:30 Glucagon (Glucagen) 1 mg Q15M PRN IM DECREASED GLUCOSE; Start 07/13/18 at 23:30 Glucose (Glutose) 15 gm Q15M PRN BUCCAL DECREASED GLUCOSE; Start 07/13/18 at 23:30 Ondansetron HCl (Zofran Inj) 4 mg Q4H PRN IV NAUSEA AND/OR VOMITING Last adm inistered on 07/23/18 16:30; Admin Dose 4 MG; Start 07/14/18 at 00:30 Miscellaneous Information (Pending Santyl Order For Wound Care) This patient aesley... PRN PRN XX WOUND CARE; Start 07/14/18 at 04:30 Heparin Sodium (Porcine) (Heparin (1000 Units/ml)) 4,000 unit AFTER DIALYSIS CATHETER Last administered on 07/20/18 17:15; Admin Dose 3,400 UNIT; Start 07/17/18 at 12:30 Diagnostic Test (Pha) (Accu-Chek) 1 ea 02 XX Last administered on 07/27/18 02:05; Admin Dose 1 EA; Start 07/19/18 at 02:00 IV Flush (NS 3 ml) 3 ml PER PROTOCOL IV ; Start 07/20/18 at 11:30 Calcium/Vitamin D (Oyster Shell/ Vit-D (500/200)) 1 tab BID PO Last administered on 07/27/18 08:27; Admin Dose 1 TAB; Start 07/20/18 at 21:00 Metoprolol Tartrate (Lopressor) 5 mg Q4H PRN IV HR > 110; Hold if SBP < 100 Last administered on 07/21/18 01:52; Admin Dose 5 MG; Start 07/21/18 at 02:00 Hydromorphone HCl (Dilaudid) 1 mg Q4H PRN IV SEVERE PAIN LEVEL 7-10 Last administered on 07/23/18 21:37; Admin Dose 1 MG; Start 07/23/18 at 22:00 Metoclopramide HCl (Reglan) 10 mg Q6H PRN IV NAUSEA AND/OR VOMITING Last administered on 07/26/18 22:31; Admin Dose 10 MG; Start 07/23/18 at 20:30 Ceftriaxone Sodium 50 ml @ 100 mls/hr Q24H IVPB Last administered on 07/27/18 12:49; Admin Dose 100 MLS/HR; Start 07/24/18 at 11:00 Norepinephrine 250 ml @ 1.875 mls/ hr TITRATE IV Last administered on 07/25/18 00:42; Admin Dose 37.5 MLS/HR; Start 07/24/18 at 11:00 Collagenase (Santyl) 1 applic DAILY TOP Last administered on 07/27/18 08:27; Admin Dose 1 APPLIC; Start 07/25/18 at 09:00 Phenylephrine HCl 80 mg/Dextrose 250 ml @ 18.75 mls/ hr TITRATE IV Last administered on 07/27/18 12:51; Admin Dose 37.5 MLS/HR; Start 07/24/18 at 20:30 Insulin Aspart (Novolog Insulin Pen) NOVOLOG *MILD* ALGORI... Q4 SC Last administered on 07/27/18 08:29; Admin Dose 2 UNIT; Start 07/24/18 at 21:00 Propofol 100 ml @ 1.851 mls/ hr Q12H IV Last administered on 07/27/18 12:49; Admin Dose 5.553 MLS/HR; Start 07/25/18 at 13:00 Pantoprazole (Protonix Iv) 40 mg BID@06,18 IV Last administered on 07/27/18 05:14; Admin Dose 40 MG; Start 07/26/18 at 18:00 Insulin Glargine (Lantus) 10 units DAILY@0800 SC Last administered on 07/27/18 08:31; Admin Dose 10 UNITS; Start 07/27/18 at 08:00 Fentanyl 100 ml @ 2.5 mls/hr TITRATE IV Last administered on 07/27/18 02:27; Admin Dose 8 MLS/HR; Start 07/26/18 at 11:00 Assessment/Plan Hospital Course (Demo Recall) 1. Cardiac arrhythmia concerning for possible atrial fibrillation but on review of screen likely more consistent with sinus rhythm with frequent premature atrial contractions, possible very short run of paroxysmal atrial fibrillation. We will follow. Pt had a short episode of a. fib - bach to sinus now. Did not convert with amio - will stop now. 2. Abnormal electrocardiogram, assess for acute coronary syndrome - r/o Mi. 3. Hypertension, uncontrolled - con't to adjust Rx and HD. BP stable. 4. History of open heart surgery - no CP now. 5. End-stage renal disease on hemodialysis. 6. Shortness of breath. 7. Congestive heart failure by x-ray, question systolic versus diastolic, likely acute on chronic given presentation. Con't to remove fluid as tolerated. Now intubated. 8. Diabetes mellitus- on meds, keep euglycemic. 9. Anemia.- h/o bleeding. AMY GRIDER MD Jul 27, 2018 13:43
--- NOTE | 2018-07-27 14:29 | CONS ---
Assessment/Plan Assessment/Plan Assessment/Plan (Daily) Assessment/Plan (Daily) IMPRESSION: 1. Anemia, rule out gastrointestinal bleeding. 2. Status post pulseless electrical activity period and cardiac arrest. 3. Ventilator-dependent respiratory failure. 4. End-stage renal disease, on dialysis. 5. 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 6. Left stump bruises. 7. Ankle fracture. 8. Cirrhosis of liver 9. Gastroparesis Plan Continue present care Resume feeding through the NG tube. Patient is tolerating feeding will increase to 35 cc/h Patient is unstable for any endoscopy procedures and there is no active GI bleeding at this point Patient will be placed on lactulose and Reglan Consultation Date/Type/Reason Admit Date/Time Jul 13, 2018 at 21:32 Initial Consult Date Requesting Provider: ADAM DUARTE MD Date/Time of Note DATE: 07/27/18 TIME: 14:28 24 HR Interval Summary Free Text/Dictation High gastric residual Exam/Review of Systems Exam Vitals Vital Signs Date Temp Pulse Resp B/P (MAP) Pulse Ox O2 O2 Flow FiO2 Time Delivery Rate 07/27/18 61 16 119/64 100 Mechanical 13:45 (82) Ventilator 07/27/18 97.1 12:00 07/27/18 40 08:00 07/24/18 2.0 08:52 Intake and Output 07/26/18 07/26/18 07/27/18 1515:00 23:00 07:00 IntakeIntake Total 1191.538 ml 697.309 ml 469.117 ml OutputOutput Total 0 ml 0 ml 0 ml BalanceBalance 1191.538 ml 697.309 ml 469.117 ml Neck: supple, non-tender Musculoskeletal: nl extremities to inspection, nl gait and stance Results Result Diagram: 07/27/18 0450 07/27/18 0450 Results 24hrs Laboratory Tests Test 07/26/18 17:24 07/26/18 20:51 07/27/18 01:10 07/27/18 02:03 Bedside Glucose 218 221 H 219 210 Test 07/27/18 04:50 07/27/18 05:16 07/27/18 07:00 07/27/18 08:26 White Blood Count 21.1 H Red Blood Count 2.79 L Hemoglobin 9.0 L Hematocrit 26.9 L Mean Corpuscular 96.4 Volume Mean Corpuscular 32.3 Hemoglobin Mean Corpuscular 33.5 Hemoglobin Concen t Red Cell 19.4 H Distribution Width Platelet Count 115 L Mean Platelet 12.5 H Volume Immature 1.000 H Granulocytes % Neutrophils % 87.0 H Lymphocytes % 6.2 L Monocytes % 4.4 Eosinophils % 1.1 Basophils % 0.3 Nucleated Red 2.0 H Blood Cells % Immature 0.210 H Granulocytes # Neutrophils # 18.4 H Lymphocytes # 1.3 Monocytes # 0.9 Eosinophils # 0.2 Basophils # 0.1 Nucleated Red 0.4 H Blood Cells # Sodium Level 134 L Potassium Level 3.5 Chloride Level 100 Carbon Dioxide 24 Level Anion Gap 10 Blood Urea 28 H Nitrogen Creatinine 2.66 H Est Glomerular Filtrat Rate mL/min Glucose Level 208 Calcium Level 8.0 L Phosphorus Level 1.2 L Magnesium Level 2.1 Bedside Glucose 208 185 Blood Gas Blood arterial Specimen Source Arterial Blood 07/27/2018 8:10:3 Date Drawn 9 AM Arterial Blood pH 7.475 H (Temp corrected) Arterial Blood 32.3 L pCO2 (Temp correct) Arterial Blood 96.0 H pO2 (Temp corrected) Arterial Blood 23.2 HCO3 Arterial Blood 0.1 Base Excess Arterial Blood 97.2 Oxygen Saturation Low Test N/A Arterial Blood A-Line Gas Puncture Site Arterial 0.3 Blood Carboxyhemo globin Arterial Blood 0.2 Methemoglobin Blood Gas A-a O2 152.1 H Differential Oxyhemoglobin 96.7 Percent Blood Gas 37.0 Temperature Blood Gas 14.0 Respiration Rate Blood Gas Actual 19 Respiration Rate Blood Gas VENT - AC Modality FiO2 40.0 Blood Gas Tidal 450.0 Volume Blood Gas Low 5.0 PEEP Setting Blood Gas Estefanía GARCIA [facility] Notified Whom Blood Gas 07/27/2018 8:30:2 Notified Time 1 AM Test 07/27/18 14:01 Bedside Glucose 167 Medications Medication Current Medications Atorvastatin Calcium (Lipitor) 40 mg QHS PO Last administered on 07/26/18at 20:52; Admin Dose 40 MG; Start 07/14/18 at 21:00 Multivit/Ca Carb/ B Cmplx/FA/Prenat (Shyann-Raj) 1 tab DAILY PO Last administered on 07/27/18at 08:27; Admin Dose 1 TAB; Start 07/14/18 at 09:00 Tramadol HCl (Ultram) 50 mg TID PRN PO PAIN LEVEL 6-10 Last administered on 07/24/18at 03:35; Admin Dose 50 MG; Start 07/13/18 at 23:30 Acetaminophen (Tylenol Tab) 650 mg Q6H PRN PO MILD PAIN(1-3)OR ELEVATED TEMP; Start 07/13/18 at 23:30 Hydralazine HCl (Apresoline) 20 mg Q6H PRN IV sbp over 170 Last administered on 07/14/18at 11:56; Admin Dose 20 MG; Start 07/13/18 at 23:30 Miscellaneous Information 1 ea NOTE XX ; Start 07/13/18 at 23:30 Glucose (Glutose) 15 gm Q15M PRN PO DECREASED GLUCOSE; Start 07/13/18 at 23:30 Glucose (Glutose) 22.5 gm Q15M PRN PO DECREASED GLUCOSE; Start 07/13/18 at 23:30 Dextrose (D50w Syringe) 25 ml Q15M PRN IV DECREASED GLUCOSE Last administered on 07/24/18at 08:19; Admin Dose 25 ML; Start 07/13/18 at 23:30 Dextrose (D50w Syringe) 50 ml Q15M PRN IV DECREASED GLUCOSE; Start 07/13/18 at 23:30 Glucagon (Glucagen) 1 mg Q15M PRN IM DECREASED GLUCOSE; Start 07/13/18 at 23:30 Glucose (Glutose) 15 gm Q15M PRN BUCCAL DECREASED GLUCOSE; Start 07/13/18 at 23:30 Ondansetron HCl (Zofran Inj) 4 mg Q4H PRN IV NAUSEA AND/OR VOMITING Last administered on 07/23/18at 16:30; Admin Dose 4 MG; Start 07/14/18 at 00:30 Miscellaneous Information (Pending Santyl Order For Wound Care) This patient easley... PRN PRN XX WOUND CARE; Start 07/14/18 at 04:30 Heparin Sodium (Porcine) (Heparin (1000 Units/ml)) 4,000 unit AFTER DIALYSIS CATHETER Last administered on 07/20/18at 17:15; Admin Dose 3,400 UNIT; Start 07/17/18 at 12:30 Diagnostic Test (Pha) (Accu-Chek) 1 ea 02 XX Last administered on 07/27/18at 02:05; Admin Dose 1 EA; Start 07/19/18 at 02:00 IV Flush (NS 3 ml) 3 ml PER PROTOCOL IV ; Start 07/20/18 at 11:30 Calcium/Vitamin D (Oyster Shell/ Vit-D (500/200)) 1 tab BID PO Last administered on 07/27/18 08:27; Admin Dose 1 TAB; Start 07/20/18 at 21:00 Metoprolol Tartrate (Lopressor) 5 mg Q4H PRN IV HR > 110; Hold if SBP < 100 Last administered on 07/21/18 01:52; Admin Dose 5 MG; Start 07/21/18 at 02:00 Hydromorphone HCl (Dilaudid) 1 mg Q4H PRN IV SEVERE PAIN LEVEL 7-10 Last administered on 07/23/18 21:37; Admin Dose 1 MG; Start 07/23/18 at 22:00 Metoclopramide HCl (Reglan) 10 mg Q6H PRN IV NAUSEA AND/OR VOMITING Last administered on 07/26/18 22:31; Admin Dose 10 MG; Start 07/23/18 at 20:30 Ceftriaxone Sodium 50 ml @ 100 mls/hr Q24H IVPB Last administered on 07/27/18 12:49; Admin Dose 100 MLS/HR; Start 07/24/18 at 11:00 Norepinephrine 250 ml @ 1.875 mls/ hr TITRATE IV Last administered on 07/25/18 00:42; Admin Dose 37.5 MLS/HR; Start 07/24/18 at 11:00 Collagenase (Santyl) 1 applic DAILY TOP Last administered on 07/27/18 08:27; Admin Dose 1 APPLIC; Start 07/25/18 at 09:00 Phenylephrine HCl 80 mg/Dextrose 250 ml @ 18.75 mls/ hr TITRATE IV Last administered on 07/27/18 12:51; Admin Dose 37.5 MLS/HR; Start 07/24/18 at 20:30 Insulin Aspart (Novolog Insulin Pen) NOVOLOG *MILD* ALGORI... Q4 SC Last administered on 07/27/18 14:04; Admin Dose 1 UNIT; Start 07/24/18 at 21:00 Propofol 100 ml @ 1.851 mls/ hr Q12H IV Last administered on 2/16/19at 12:49; Admin Dose 5.553 MLS/HR; Start 07/25/18 at 13:00 Pantoprazole (Protonix Iv) 40 mg BID@06,18 IV Last administered on 07/27/18at 05:14; Admin Dose 40 MG; Start 07/26/18 at 18:00 Insulin Glargine (Lantus) 10 units DAILY@0800 SC Last administered on 07/27/18at 08:31; Admin Dose 10 UNITS; Start 07/27/18 at 08:00 Fentanyl 100 ml @ 2.5 mls/hr TITRATE IV Last administered on 07/27/18at 02:27; Admin Dose 8 MLS/HR; Start 07/26/18 at 11:00 GLORIA TURNER MD Jul 27, 2018 14:29
--- NOTE | 2018-07-27 14:52 | PN ---
Date/Time of Note Date/Time of Note DATE: 07/27/18 TIME: 14:47 Assessment/Plan VTE Prophylaxis Risk score (from [facility])>0 risk: 22 SCD applied (from [facility] [place]): No SCD contraindicated: bilateral LE trauma, other (amputee) Pharmacological prophylaxis: NA/contraindicated Pharm contraindication: anticoag not tolerated Lines/Catheters IV Catheter Type (from [facility]): A Line Urinary Cath still in place: Yes Reason Cath still needed: urinary retention Assessment/Plan Hospital Course 1. s/p cardiopulmonary arrest. 2 Acute comminuted fractures of the distal tibia and fibula that involve the distal tibiofibular joint.. S/p manipulative reduction under anesthesia & immobilization in a short leg cast by dr Boston 07/20/2018. Left hip fracture 2. Hyperkalemia due to missed hemodialysis.due to fall 3. Metabolic acidosis. 4. Cardiomegaly and pulmonary edema. 5. Aortic atherosclerosis. 6. History of congestive heart failure. 7. History of diabetic retinopathy, nephropathy. 8. Hypoalbuminemia. 9. The patient has right lower extremity brace, Left BKA 10. Left stump bruise, resolving 11 ? AFIB. 12 Congestive heart failure by x-ray, question systolic versus diastolic, likely acute on chronic given presentation. 13 elevated troponin in the setting of end-stage kidney disease 14. Anemia 15. Osteoporosis 16. Hyponatremia. resolved 17. Hypothyroidism Assessment/Plan -S/P Code blue multiple CPR -start thyroid supplements -Neurological status seems intact -pt might be extubated after HD -on propofol and fentanyl drips -Feeding as tolerated -c/w Protonix twice daily -Weaning as per pulmonary -H&H stable status post 2 units of blood, per ICU nurse stool tinged blood -Dr. Boston was also called for fracture of the left hip> intervention currently as patient is unstable -Hold anticoagulation due to bleeding -HD today -Trop down trending - fu cardiac/pul recs Result Diagram: 07/27/1844907/27/18449 Results 24hrs Laboratory Tests Test 07/26/18 17:24 07/26/18 20:51 07/27/18 01:10 07/27/18 02:03 Bedside Glucose 218 221 H 219 210 Test 07/27/18 04:50 07/27/18 05:16 07/27/18 07:00 07/27/18 08:26 White Blood Count 21.1 H Red Blood Count 2.79 L Hemoglobin 9.0 L Hematocrit 26.9 L Mean Corpuscular 96.4 Volume Mean Corpuscular 32.3 Hemoglobin Mean Corpuscular 33.5 Hemoglobin Concen t Red Cell 19.4 H Distribution Width Platelet Count 115 L Mean Platelet 12.5 H Volume Immature 1.000 H Granulocytes % Neutrophils % 87.0 H Lymphocytes % 6.2 L Monocytes % 4.4 Eosinophils % 1.1 Basophils % 0.3 Nucleated Red 2.0 H Blood Cells % Immature 0.210 H Granulocytes # Neutrophils # 18.4 H Lymphocytes # 1.3 Monocytes # 0.9 Eosinophils # 0.2 Basophils # 0.1 Nucleated Red 0.4 H Blood Cells # Sodium Level 134 L Potassium Level 3.5 Chloride Level 100 Carbon Dioxide 24 Level Anion Gap 10 Blood Urea 28 H Nitrogen Creatinine 2.66 H Est Glomerular Filtrat Rate mL/min Glucose Level 208 Calcium Level 8.0 L Phosphorus Level 1.2 L Magnesium Level 2.1 Bedside Glucose 208 185 Blood Gas Blood arterial Specimen Source Arterial Blood 07/27/2018 8:10:3 Date Drawn 9 AM Arterial Blood pH 7.475 H (Temp corrected) Arterial Blood 32.3 L pCO2 (Temp correct) Arterial Blood 96.0 H pO2 (Temp corrected) Arterial Blood 23.2 HCO3 Arterial Blood 0.1 Base Excess Arterial Blood 97.2 Oxygen Saturation Low Test N/A Arterial Blood A-Line Gas Puncture Site Arterial 0.3 Blood Carboxyhemo globin Arterial Blood 0.2 Methemoglobin Blood Gas A-a O2 152.1 H Differential Oxyhemoglobin 96.7 Percent Blood Gas 37.0 Temperature Blood Gas 14.0 Respiration Rate Blood Gas Actual 19 Respiration Rate Blood Gas VENT - AC Modality FiO2 40.0 Blood Gas Tidal 450.0 Volume Blood Gas Low 5.0 PEEP Setting Blood Gas Estefanía GARCIA [facility] Notified Whom Blood Gas 07/27/2018 8:30:2 Notified Time 1 AM Test 07/27/18 14:01 Bedside Glucose 167 Subjective 24 Hr Interval Summary Free Text/Dictation orally intubated Subjective hx not possible: pt non-verbal Exam/Review of Systems Exam Vitals Vital Signs Date Temp Pulse Resp B/P (MAP) Pulse Ox O2 O2 Flow FiO2 Time Delivery Rate 07/27/18 61 16 119/64 100 Mechanical 13:45 (82) Ventilator 07/27/18 97.1 12:00 07/27/18 40 08:00 07/24/18 2.0 08:52 Intake and Output 07/26/18 07/26/18 07/27/18 1515:00 23:00 07:00 IntakeIntake Total 1191.538 ml 697.309 ml 479.117 ml OutputOutput Total 0 ml 0 ml 0 ml BalanceBalance 1191.538 ml 697.309 ml 479.117 ml Exam right chest Permcath Constitutional: non-verbal Neck: supple Respiratory: diminished breath sounds Cardiovascular: regular rate and rhythm Gastrointestinal: soft Musculoskeletal: other (left BKA, right leg cast) Skin: ecchymosis Results Results 24hrs Laboratory Tests Test 07/26/18 17:24 07/26/18 20:51 07/27/18 01:10 07/27/18 02:03 Bedside Glucose 218 221 H 219 210 Test 07/27/18 04:50 07/27/18 05:16 07/27/18 07:00 07/27/18 08:26 White Blood Count 21.1 H Red Blood Count 2.79 L Hemoglobin 9.0 L Hematocrit 26.9 L Mean Corpuscular 96.4 Volume Mean Corpuscular 32.3 Hemoglobin Mean Corpuscular 33.5 Hemoglobin Concen t Red Cell 19.4 H Distribution Width Platelet Count 115 L Mean Platelet 12.5 H Volume Immature 1.000 H Granulocytes % Neutrophils % 87.0 H Lymphocytes % 6.2 L Monocytes % 4.4 Eosinophils % 1.1 Basophils % 0.3 Nucleated Red 2.0 H Blood Cells % Immature 0.210 H Granulocytes # Neutrophils # 18.4 H Lymphocytes # 1.3 Monocytes # 0.9 Eosinophils # 0.2 Basophils # 0.1 Nucleated Red 0.4 H Blood Cells # Sodium Level 134 L Potassium Level 3.5 Chloride Level 100 Carbon Dioxide 24 Level Anion Gap 10 Blood Urea 28 H Nitrogen Creatinine 2.66 H Est Glomerular Filtrat Rate mL/min Glucose Level 208 Calcium Level 8.0 L Phosphorus Level 1.2 L Magnesium Level 2.1 Bedside Glucose 208 185 Blood Gas Blood arterial Specimen Source Arterial Blood 07/27/2018 8:10:3 Date Drawn 9 AM Arterial Blood pH 7.475 H (Temp corrected) Arterial Blood 32.3 L pCO2 (Temp correct) Arterial Blood 96.0 H pO2 (Temp corrected) Arterial Blood 23.2 HCO3 Arterial Blood 0.1 Base Excess Arterial Blood 97.2 Oxygen Saturation Low Test N/A Arterial Blood A-Line Gas Puncture Site Arterial 0.3 Blood Carboxyhemo globin Arterial Blood 0.2 Methemoglobin Blood Gas A-a O2 152.1 H Differential Oxyhemoglobin 96.7 Percent Blood Gas 37.0 Temperature Blood Gas 14.0 Respiration Rate Blood Gas Actual 19 Respiration Rate Blood Gas VENT - AC Modality FiO2 40.0 Blood Gas Tidal 450.0 Volume Blood Gas Low 5.0 PEEP Setting Blood Gas Estefanía GARCIA [employer] Notified Whom Blood Gas 07/27/2018 8:30:2 Notified Time 1 AM Test 07/27/18 14:01 Bedside Glucose 167 Medications Medication Current Medications Atorvastatin Calcium (Lipitor) 40 mg QHS PO Last administered on 07/26/18at 20:52; Admin Dose 40 MG; Start 07/14/18 at 21:00 Multivit/Ca Carb/ B Cmplx/FA/Prenat (Shyann-Raj) 1 tab DAILY PO Last administered on 07/27/18at 08:27; Admin Dose 1 TAB; Start 07/14/18 at 09:00 Tramadol HCl (Ultram) 50 mg TID PRN PO PAIN LEVEL 6-10 Last administered on 07/24/18at 03:35; Admin Dose 50 MG; Start 07/13/18 at 23:30 Acetaminophen (Tylenol Tab) 650 mg Q6H PRN PO MILD PAIN(1-3)OR ELEVATED TEMP; Start 07/13/18 at 23:30 Hydralazine HCl (Apresoline) 20 mg Q6H PRN IV sbp over 170 Last administered on 07/14/18at 11:56; Admin Dose 20 MG; Start 07/13/18 at 23:30 Miscellaneous Information 1 ea NOTE XX ; Start 07/13/18 at 23:30 Glucose (Glutose) 15 gm Q15M PRN PO DECREASED GLUCOSE; Start 07/13/18 at 23:30 Glucose (Glutose) 22.5 gm Q15M PRN PO DECREASED GLUCOSE; Start 07/13/18 at 23:30 Dextrose (D50w Syringe) 25 ml Q15M PRN IV DECREASED GLUCOSE Last administered on 07/24/18at 08:19; Admin Dose 25 ML; Start 07/13/18 at 23:30 Dextrose (D50w Syringe) 50 ml Q15M PRN IV DECREASED GLUCOSE; Start 07/13/18 at 23:30 Glucagon (Glucagen) 1 mg Q15M PRN IM DECREASED GLUCOSE; Start 07/13/18 at 23:30 Glucose (Glutose) 15 gm Q15M PRN BUCCAL DECREASED GLUCOSE; Start 07/13/18 at 23:30 Ondansetron HCl (Zofran Inj) 4 mg Q4H PRN IV NAUSEA AND/OR VOMITING Last admin istered on 07/23/18 16:30; Admin Dose 4 MG; Start 07/14/18 at 00:30 [facility] This patient easley... PRN PRN XX WOUND CARE; Start 07/14/18 at 04:30 Heparin Sodium (Porcine) (Heparin (1000 Units/ml)) 4,000 unit AFTER DIALYSIS CATHETER Last administered on 07/20/18 17:15; Admin Dose 3,400 UNIT; Start 07/17/18 at 12:30 Diagnostic Test (Pha) (Accu-Chek) 1 ea 02 XX Last administered on 07/27/18 02:05; Admin Dose 1 EA; Start 07/19/18 at 02:00 IV Flush (NS 3 ml) 3 ml PER PROTOCOL IV ; Start 07/20/18 at 11:30 Calcium/Vitamin D (Oyster Shell/ Vit-D (500/200)) 1 tab BID PO Last administered on 07/27/18 08:27; Admin Dose 1 TAB; Start 07/20/18 at 21:00 Metoprolol Tartrate (Lopressor) 5 mg Q4H PRN IV HR > 110; Hold if SBP < 100 Last administered on 07/21/18 01:52; Admin Dose 5 MG; Start 07/21/18 at 02:00 Hydromorphone HCl (Dilaudid) 1 mg Q4H PRN IV SEVERE PAIN LEVEL 7-10 Last administered on 07/23/18 21:37; Admin Dose 1 MG; Start 07/23/18 at 22:00 Metoclopramide HCl (Reglan) 10 mg Q6H PRN IV NAUSEA AND/OR VOMITING Last administered on 07/26/18 22:31; Admin Dose 10 MG; Start 07/23/18 at 20:30 Ceftriaxone Sodium 50 ml @ 100 mls/hr Q24H IVPB Last administered on 07/27/18 12:49; Admin Dose 100 MLS/HR; Start 07/24/18 at 11:00 Norepinephrine 250 ml @ 1.875 mls/ hr TITRATE IV Last administered on 07/25/18 00:42; Admin Dose 37.5 MLS/HR; Start 07/24/18 at 11:00 Collagenase (Santyl) 1 applic DAILY TOP Last administered on 07/27/18 08:27; Admin Dose 1 APPLIC; Start 07/25/18 at 09:00 Phenylephrine HCl 80 mg/Dextrose 250 ml @ 18.75 mls/ hr TITRATE IV Last administered on 07/27/18 12:51; Admin Dose 37.5 MLS/HR; Start 07/24/18 at 20:30 Insulin Aspart (Novolog Insulin Pen) NOVOLOG *MILD* ALGORI... Q4 SC Last administered on 07/27/18 14:04; Admin Dose 1 UNIT; Start 07/24/18 at 21:00 Propofol 100 ml @ 1.851 mls/ hr Q12H IV Last administered on 07/27/18 12:49; Admin Dose 5.553 MLS/HR; Start 07/25/18 at 13:00 Pantoprazole (Protonix Iv) 40 mg BID@06,18 IV Last administered on 07/27/18 05:14; Admin Dose 40 MG; Start 07/26/18 at 18:00 Insulin Glargine (Lantus) 10 units DAILY@0800 SC Last administered on 07/27/18 08:31; Admin Dose 10 UNITS; Start 07/27/18 at 08:00 Fentanyl 100 ml @ 2.5 mls/hr TITRATE IV Last administered on 07/27/18 02:27; Admin Dose 8 MLS/HR; Start 07/26/18 at 11:00 Metoclopramide HCl (Reglan) 5 mg Q6 IV ; Start 07/27/18 at 18:00 Sodium Phosphate 20 meq/Sodium Chloride 255 ml @ 63.75 mls/ hr ONCE ONCE IVPB ; Start 07/27/18 at 16:00; Stop 2/16/19 at 19:59 Levothyroxine Sodium (Synthroid Iv) 50 mcg DAILY@06 IV ; Start 07/28/18 at 06:00 ANAYELI KEYES Jul 27, 2018 14:52
[2018-07-27] MEDS ORDERED: SODIUM PHOSPHATE 20 MEQ in SOD CHLORIDE 0.9% 250 ML IVPB ONE (16:00)
[2018-07-27] MEDS: METOCLOPRAMIDE 10 MG INJ IV SCH ×2 (18:12→23:59)
[2018-07-27] MEDS: HEPARIN 1000 UNITS/ML 10 ML INJ CATHETER SCH (20:16)
[2018-07-27] MEDS: ATORVASTATIN 40 MG TAB PO SCH (21:44)
[2018-07-28] VITALS (96 sets, daily range): BP systolic 54–146; BP diastolic 25–82; PULSE 60–105; RESP 5–30
[2018-07-28] MEDS: INSULIN ASPART [NOVOLOG] 3 ML PEN SC SCH ×6 (01:00→20:32)
[2018-07-28] MEDS: ACCU-CHEK XX SCH (02:43)
[2018-07-28] MEDS: PHENYLephrine 80 MG in DEXTROSE 5% 242 ML IV SCH ×4 (03:35→21:07)
[2018-07-28] MEDS: PROPOFOL 100 ML IV SCH ×3 (03:36→20:30)
[2018-07-28] MEDS: METOCLOPRAMIDE 10 MG INJ IV SCH ×3 (05:19→17:57)
[2018-07-28] MEDS: PANTOPRAZOLE 40 MG INJ IV SCH ×2 (05:19→17:57)
[2018-07-28] MEDS: LEVOTHYROXINE 100 MCG VIAL IV SCH (05:19)
[2018-07-28] MEDS: FENTAnyl (DRIP) 1000 mcg/100mL 100 ML IV SCH ×2 (08:38→17:59)
[2018-07-28] MEDS: MULTIVIT/CA CARB/B CMPLX/FA TAB PO SCH (09:08)
[2018-07-28] MEDS: COLLAGENASE 5 GM (UD JAR) TOP SCH (09:08)
[2018-07-28] MEDS: BALSAM PERU/CASTOR OIL 60 GM TUBE TOP SCH ×2 (09:09→20:30)
[2018-07-28] MEDS: CALCIUM/VITAMIN D (500/200) TAB PO SCH ×2 (09:09→20:30)
[2018-07-28] MEDS: INSULIN GLARGINE [LANTus] (100 UNITS/ML) SYG SC SCH (09:15)
--- NOTE | 2018-07-28 10:07 | CONS ---
Consult Date/Type/Reason Admit Date/Time Jul 13, 2018 at 21:32 Initial Consult Date Type of Consult Pulmonary Requesting Provider: ADAM DUARTE MD Date/Time of Note DATE: 07/28/18 TIME: 10:06 Subjective Intubated sedated on mechanical ventilation. Continues vasopressor support. Per nursing staff patient follows simple commands off sedation. Objective Vital Signs Date Temp Pulse Resp B/P (MAP) Pulse Ox O2 O2 Flow FiO2 Time Delivery Rate 07/28/18 86 25 99/39 (59) 100 Mechanical 08:45 Ventilator 07/28/18 40 08:00 07/28/18 97.8 08:00 07/24/18 2.0 08:52 Intake and Output 07/27/18 07/27/18 07/28/18 1515:00 23:00 07:00 IntakeIntake Total 423.2 ml 584.869 ml 623.232 ml OutputOutput Total 30 ml 1730 ml 11 ml BalanceBalance 393.2 ml -1145.131 ml 612.232 ml Exam PHYSICAL EXAMINATION: GENERAL: Chronically ill appearing lady on mechanical ventilation. VITAL SIGNS: Opens eyes attempting to communicate. NECK: Supple. No JVD or lymphadenopathy. CARDIAC: S1, S2, no added sounds or murmurs. CHEST: Diminished air entry bilaterally. ABDOMEN: Soft, nontender. No guarding or rebound. EXTREMITIES: No cyanosis, clubbing or edema. NEUROLOGIC: Unable to assess. Vent Setting Ventilator Support Mode: AC Fraction of Inspired Oxygen pe: 40 Positive End Expiratory Pressu: 5.0 Results/Medications Result Diagram: 07/28/18 0415 07/28/18 0415 Results 24 hrs Chest x-ray demonstrating dense right lower lobe infiltrate versus effusion Laboratory Tests Test 07/27/18 14:01 07/27/18 18:11 07/27/18 21:40 07/27/18 23:56 Bedside Glucose 167 151 112 114 Test 07/28/18 04:15 07/28/18 05:18 07/28/18 07:00 07/28/18 09:01 White Blood Count 18.6 H Red Blood Count 2.98 L Hemoglobin 9.6 L Hematocrit 28.9 L Mean Corpuscular 97.0 Volume Mean Corpuscular 32.2 Hemoglobin Mean Corpuscular 33.2 Hemoglobin Concen t Red Cell 19.3 H Distribution Width Platelet Count 107 L Mean Platelet 13.0 H Volume Immature 1.200 H Granulocytes % Neutrophils % 89.9 H Lymphocytes % 4.2 L Monocytes % 3.2 Eosinophils % 1.2 Basophils % 0.3 Nucleated Red 1.6 H Blood Cells % Immature 0.230 H Granulocytes # Neutrophils # 16.7 H Lymphocytes # 0.8 Monocytes # 0.6 Eosinophils # 0.2 Basophils # 0.1 Nucleated Red 0.3 H Blood Cells # Sodium Level 134 L Potassium Level 3.7 Chloride Level 96 L Carbon Dioxide 29 Level Anion Gap 9 Blood Urea 16 # Nitrogen Creatinine 1.81 H Est Glomerular Filtrat Rate mL/min Glucose Level 113 # Calcium Level 7.7 L Phosphorus Level 2.3 #L Magnesium Level 1.7 Bedside Glucose 127 137 Blood Gas Blood arterial Specimen Source Arterial Blood 07/28/2018 9:20:4 Date Drawn 8 AM Arterial Blood pH 7.563 *H (Temp corrected) Arterial Blood 25.3 L pCO2 (Temp correct) Arterial Blood 55.7 L pO2 (Temp corrected) Arterial Blood 22.3 HCO3 Arterial Blood 0.9 Base Excess Arterial Blood 93.1 L Oxygen Saturation Low Test N/A Arterial Blood A-Line Gas Puncture Site Arterial 0.4 Blood Carboxyhemo globin Arterial Blood 0.2 Methemoglobin Blood Gas A-a O2 128.5 H Differential Oxyhemoglobin 92.5 L Percent Blood Gas 37.0 Temperature Blood Gas 14.0 Respiration Rate Blood Gas Actual 33 Respiration Rate Blood Gas VENT - AC Modality FiO2 30.0 Blood Gas Tidal 450.0 Volume Blood Gas Low 5.0 PEEP Setting Blood Gas Nellie GATES RN Critical Value Read Back Blood Gas Carolyn GARCIA [employer] Notified Whom Blood Gas 07/28/2018 9:39:0 Notified Time 4 AM Medications Current Medications Atorvastatin Calcium (Lipitor) 40 mg QHS PO Last administered on 07/27/18 21:44; Admin Dose 40 MG; Start 07/14/18 at 21:00 Multivit/Ca Carb/ B Cmplx/FA/Prenat (Shyann-Raj) 1 tab DAILY PO Last administered on 07/28/18 09:08; Admin Dose 1 TAB; Start 07/14/18 at 09:00 Tramadol HCl (Ultram) 50 mg TID PRN PO PAIN LEVEL 6-10 Last administered on 2/13/19at 03:35; Admin Dose 50 MG; Start 07/13/18 at 23:30 Acetaminophen (Tylenol Tab) 650 mg Q6H PRN PO MILD PAIN(1-3)OR ELEVATED TEMP; Start 07/13/18 at 23:30 Hydralazine HCl (Apresoline) 20 mg Q6H PRN IV sbp over 170 Last administered on 07/14/18at 11:56; Admin Dose 20 MG; Start 07/13/18 at 23:30 Miscellaneous Information 1 ea NOTE XX ; Start 07/13/18 at 23:30 Glucose (Glutose) 15 gm Q15M PRN PO DECREASED GLUCOSE; Start 07/13/18 at 23:30 Glucose (Glutose) 22.5 gm Q15M PRN PO DECREASED GLUCOSE; Start 07/13/18 at 23:30 Dextrose (D50w Syringe) 25 ml Q15M PRN IV DECREASED GLUCOSE Last administered on 07/24/18at 08:19; Admin Dose 25 ML; Start 07/13/18 at 23:30 Dextrose (D50w Syringe) 50 ml Q15M PRN IV DECREASED GLUCOSE; Start 07/13/18 at 23:30 Glucagon (Glucagen) 1 mg Q15M PRN IM DECREASED GLUCOSE; Start 07/13/18 at 23:30 Glucose (Glutose) 15 gm Q15M PRN BUCCAL DECREASED GLUCOSE; Start 07/13/18 at 23:30 Ondansetron HCl (Zofran Inj) 4 mg Q4H PRN IV NAUSEA AND/OR VOMITING Last administered on 07/23/18at 16:30; Admin Dose 4 MG; Start 07/14/18 at 00:30 Miscellaneous Information (Pending Santyl Order For Wound Care) This patient easley... PRN PRN XX WOUND CARE; Start 07/14/18 at 04:30 Heparin Sodium (Porcine) (Heparin (1000 Units/ml)) 4,000 unit AFTER DIALYSIS CATHETER Last administered on 07/27/18at 20:16; Admin Dose 4,000 UNIT; Start 07/17/18 at 12:30 Diagnostic Test (Pha) (Accu-Chek) 1 ea 02 XX Last administered on 07/28/18at 02:43; Admin Dose 1 EA; Start 07/19/18 at 02:00 IV Flush (NS 3 ml) 3 ml PER PROTOCOL IV ; Start 07/20/18 at 11:30 Calcium/Vitamin D (Oyster Shell/ Vit-D (500/200)) 1 tab BID PO Last ad ministered on 07/28/18 09:09; Admin Dose 1 TAB; Start 07/20/18 at 21:00 Metoprolol Tartrate (Lopressor) 5 mg Q4H PRN IV HR > 110; Hold if SBP < 100 Last administered on 07/21/18 01:52; Admin Dose 5 MG; Start 07/21/18 at 02:00 Hydromorphone HCl (Dilaudid) 1 mg Q4H PRN IV SEVERE PAIN LEVEL 7-10 Last administered on 07/23/18 21:37; Admin Dose 1 MG; Start 07/23/18 at 22:00 Metoclopramide HCl (Reglan) 10 mg Q6H PRN IV NAUSEA AND/OR VOMITING Last administered on 07/26/18 22:31; Admin Dose 10 MG; Start 07/23/18 at 20:30 Ceftriaxone Sodium 50 ml @ 100 mls/hr Q24H IVPB Last administered on 07/27/18 12:49; Admin Dose 100 MLS/HR; Start 07/24/18 at 11:00 Norepinephrine 250 ml @ 1.875 mls/ hr TITRATE IV Last administered on 07/25/18 00:42; Admin Dose 37.5 MLS/HR; Start 07/24/18 at 11:00 Collagenase (Santyl) 1 applic DAILY TOP Last administered on 07/28/18 09:08; Admin Dose 1 APPLIC; Start 07/25/18 at 09:00 Phenylephrine HCl 80 mg/Dextrose 250 ml @ 18.75 mls/ hr TITRATE IV Last admin istered on 07/28/18 08:35; Admin Dose 52.5 MLS/HR; Start 07/24/18 at 20:30 Insulin Aspart (Novolog Insulin Pen) NOVOLOG *MILD* ALGORI... Q4 SC Last administered on 07/27/18 18:14; Admin Dose 1 UNIT; Start 07/24/18 at 21:00 Propofol 100 ml @ 1.851 mls/ hr Q12H IV Last administered on 07/28/18 03:36; Admin Dose 9.255 MLS/HR; Start 07/25/18 at 13:00 Pantoprazole (Protonix Iv) 40 mg BID@06,18 IV Last administered on 07/28/18at 05:19; Admin Dose 40 MG; Start 07/26/18 at 18:00 Insulin Glargine (Lantus) 10 units DAILY@0800 SC Last administered on 07/28/18at 09:15; Admin Dose 10 UNITS; Start 07/27/18 at 08:00 Fentanyl 100 ml @ 2.5 mls/hr TITRATE IV Last administered on 07/28/18at 08:38; Admin Dose 2.5 MLS/HR; Start 07/26/18 at 11:00 Metoclopramide HCl (Reglan) 5 mg Q6 IV Last administered on 07/28/18at 05:19; Admin Dose 5 MG; Start 07/27/18 at 18:00 Levothyroxine Sodium (Synthroid Iv) 50 mcg DAILY@06 IV Last administered on 07/28/18at 05:19; Admin Dose 50 MCG; Start 07/28/18 at 06:00 Assessment/Plan Hospital Course (Demo Recall) IMPRESSION 1. Cardiopulmonary arrest. Prolonged CPR with ACLS protocol. 2. Multiple cardiopulmonary arrests and prolonged hypotension, despite this patient seems to be somewhat neurologically intact. 3. End-stage renal failure on hemodialysis. 4. Possible aspiration pneumonia. Septic shock. Requiring vasopressor support 5. History of severe peripheral vascular disease. 6. Possible acute GI bleed given acute drop in hemoglobin prior to cardiac arrest Plan 1. Vasopressor support as needed. 2. Mechanical ventilation currently not stable for CPAP trials. CT chest to evaluate effusion versus pneumonia. If significant effusion patient will require thoracentesis 3. Broad-spectrum antibiotic coverage for possible aspiration. 4. GI evaluation consider EGD and/or colonoscopy when more stable 5. DVT and GI prophylaxis. Critical care time 40 minutes. Prognosis guarded. DEVAN MIDDLETON MD, [facility] Jul 28, 2018 10:07
[2018-07-28] MEDS ORDERED: CEFEPIME 2GM/50 ML (PMX) 50 ML IVPB SCH ×2 (10:30→21:00)
[2018-07-28] MEDS ORDERED: VANCOMYCIN IV PER PHARMACY XX SCH (10:30)
[2018-07-28] MEDS: CEFEPIME 2GM/50 ML (PMX) 50 ML IVPB SCH (12:13)
[2018-07-28] MEDS ORDERED: VANCOMYCIN HCL 1.25 GM in SOD CHLORIDE 0.9% 250 ML IVPB SCH (13:00)
--- NOTE | 2018-07-28 13:22 | CONS ---
Consult Date/Type/Reason Admit Date/Time Jul 13, 2018 at 21:32 Initial Consult Date Requesting Provider: ADAM DUARTE MD Date/Time of Note DATE: 07/28/18 TIME: 13:19 Subjective Pt again with low BP - will initiate levo gtt now- family at bedside - conference planned for tomorrow to address goal of care.l ROS: No fever, no chills, no nausea, no vomiting, no diarrhea/constipation - per nurse + SOB / low BP Objective Vitals Vital Signs Date Temp Pulse Resp B/P (MAP) Pulse Ox O2 O2 Flow FiO2 Time Delivery Rate 07/28/18 45 11:00 07/28/18 86 25 99/39 (59) 100 Mechanical 08:45 Ventilator 07/28/18 97.8 08:00 07/24/18 2.0 08:52 Intake and Output 07/27/18 07/27/18 07/28/18 1515:00 23:00 07:00 IntakeIntake Total 423.2 ml 584.869 ml 623.232 ml OutputOutput Total 30 ml 1730 ml 11 ml BalanceBalance 393.2 ml -1145.131 ml 612.232 ml Exam General: WN/WD/NAD, AOx 0 HEENT: Unicetric/atraumatic/EOMI (does not follow commands) NECK: JVD elevated, no thyromegaly - intubated Lymph: no lymphadenopathy HEART: regular with no S3, II/ systolic murmur at apex LUNGS: Coarse sounds ABD: soft, NT, ND, +BS : Intact Neuro: non focal SKIN: chronic changes EXT: edema Results/Medications Result Diagram: 07/28/18 0415 07/28/18 0415 Results 24 hrs Laboratory Tests Test 07/27/18 14:01 07/27/18 18:11 07/27/18 21:40 07/27/18 23:56 Bedside Glucose 167 151 112 114 Test 07/28/18 04:15 07/28/18 05:18 07/28/18 07:00 07/28/18 09:01 White Blood Count 18.6 H Red Blood Count 2.98 L Hemoglobin 9.6 L Hematocrit 28.9 L Mean Corpuscular 97.0 Volume Mean Corpuscular 32.2 Hemoglobin Mean Corpuscular 33.2 Hemoglobin Concen t Red Cell 19.3 H Distribution Width Platelet Count 107 L Mean Platelet 13.0 H Volume Immature 1.200 H Granulocytes % Neutrophils % 89.9 H Lymphocytes % 4.2 L Monocytes % 3.2 Eosinophils % 1.2 Basophils % 0.3 Nucleated Red 1.6 H Blood Cells % Immature 0.230 H Granulocytes # Neutrophils # 16.7 H Lymphocytes # 0.8 Monocytes # 0.6 Eosinophils # 0.2 Basophils # 0.1 Nucleated Red 0.3 H Blood Cells # Sodium Level 134 L Potassium Level 3.7 Chloride Level 96 L Carbon Dioxide 29 Level Anion Gap 9 Blood Urea 16 # Nitrogen Creatinine 1.81 H Est Glomerular Filtrat Rate mL/min Glucose Level 113 # Calcium Level 7.7 L Phosphorus Level 2.3 #L Magnesium Level 1.7 Bedside Glucose 127 137 Blood Gas Blood arterial Specimen Source Arterial Blood 07/28/2018 9:20:4 Date Drawn 8 AM Arterial Blood pH 7.563 *H (Temp corrected) Arterial Blood 25.3 L pCO2 (Temp correct) Arterial Blood 55.7 L pO2 (Temp corrected) Arterial Blood 22.3 HCO3 Arterial Blood 0.9 Base Excess Arterial Blood 93.1 L Oxygen Saturation Low Test N/A Arterial Blood A-Line Gas Puncture Site Arterial 0.4 Blood Carboxyhemo globin Arterial Blood 0.2 Methemoglobin Blood Gas A-a O2 128.5 H Differential Oxyhemoglobin 92.5 L Percent Blood Gas 37.0 Temperature Blood Gas 14.0 Respiration Rate Blood Gas Actual 33 Respiration Rate Blood Gas VENT - AC Modality FiO2 30.0 Blood Gas Tidal 450.0 Volume Blood Gas Low 5.0 PEEP Setting Blood Gas Nellie GATES RN Critical Value Read Back Blood Gas Carolyn GARCIA [facility] [employer] Notified Whom Blood Gas 07/28/2018 9:39:0 Notified Time 4 AM Home Meds Reported Medications Atorvastatin* (Atorvastatin*) 40 Mg Tablet, 40 MG PO QHS, #30 TAB 07/13/18 Carvedilol* (Carvedilol*) 3.125 Mg Tablet, 3.125 MG PO BID, #60 TAB 07/13/18 Tramadol HCl (Tramadol HCl) 50 Mg Tablet, 50 MG PO TID PRN for PAIN LEVEL 6-10, #90 TAB 07/13/18 Multivit/Ca Carb/B Cmplx/Fa* (Shyann-Raj*) 1 Tab Tab, 1 TAB PO DAILY, TAB 07/13/18 Isosorbide Mononitrate* (Isosorbide Mononitrate*) 60 Mg Tab.er.24h, 60 MG PO DAILY, TAB 07/13/18 Pantoprazole* (Protonix*) 20 Mg Tablet.dr, 20 MG PO DAILY, TAB 07/13/18 Clonidine Hcl* (Clonidine Hcl*) 0.1 Mg Tab, 0.1 MG PO BID, TAB 07/13/18 Aspirin (Aspir-Low) 81 Mg Tablet.dr, 81 MG PO DAILY 07/13/18 Medications Current Medications Atorvastatin Calcium (Lipitor) 40 mg QHS PO Last administered on 07/27/18at 21:44; Admin Dose 40 MG; Start 07/14/18 at 21:00 Multivit/Ca Carb/ B Cmplx/FA/Prenat (Shyann-Raj) 1 tab DAILY PO Last administered on 07/28/18at 09:08; Admin Dose 1 TAB; Start 07/14/18 at 09:00 Tramadol HCl (Ultram) 50 mg TID PRN PO PAIN LEVEL 6-10 Last administered on 07/24/18at 03:35; Admin Dose 50 MG; Start 07/13/18 at 23:30 Acetaminophen (Tylenol Tab) 650 mg Q6H PRN PO MILD PAIN(1-3)OR ELEVATED TEMP; Start 07/13/18 at 23:30 Hydralazine HCl (Apresoline) 20 mg Q6H PRN IV sbp over 170 Last administered on 07/14/18at 11:56; Admin Dose 20 MG; Start 07/13/18 at 23:30 Miscellaneous Information 1 ea NOTE XX ; Start 07/13/18 at 23:30 Glucose (Glutose) 15 gm Q15M PRN PO DECREASED GLUCOSE; Start 07/13/18 at 23:30 Glucose (Glutose) 22.5 gm Q15M PRN PO DECREASED GLUCOSE; Start 07/13/18 at 23:30 Dextrose (D50w Syringe) 25 ml Q15M PRN IV DECREASED GLUCOSE Last administered on 07/24/18at 08:19; Admin Dose 25 ML; Start 07/13/18 at 23:30 Dextrose (D50w Syringe) 50 ml Q15M PRN IV DECREASED GLUCOSE; Start 07/13/18 at 23:30 Glucagon (Glucagen) 1 mg Q15M PRN IM DECREASED GLUCOSE; Start 07/13/18 at 23:30 Glucose (Glutose) 15 gm Q15M PRN BUCCAL DECREASED GLUCOSE; Start 07/13/18 at 23:30 Ondansetron HCl (Zofran Inj) 4 mg Q4H PRN IV NAUSEA AND/OR VOMITING Last administered on 07/23/18 16:30; Admin Dose 4 MG; Start 07/14/18 at 00:30 Miscellaneous Information (Pending Santyl Order For Wound Care) This patient easley... PRN PRN XX WOUND CARE; Start 07/14/18 at 04:30 Heparin Sodium (Porcine) (Heparin (1000 Units/ml)) 4,000 unit AFTER DIALYSIS CATHETER Last administered on 07/27/18 20:16; Admin Dose 4,000 UNIT; Start 07/17/18 at 12:30 Diagnostic Test (Pha) (Accu-Chek) 1 ea 02 XX Last administered on 07/28/18 02:43; Admin Dose 1 EA; Start 07/19/18 at 02:00 IV Flush (NS 3 ml) 3 ml PER PROTOCOL IV ; Start 07/20/18 at 11:30 Calcium/Vitamin D (Oyster Shell/ Vit-D (500/200)) 1 tab BID PO Last administered on 07/28/18 09:09; Admin Dose 1 TAB; Start 07/20/18 at 21:00 Metoprolol Tartrate (Lopressor) 5 mg Q4H PRN IV HR > 110; Hold if SBP < 100 Last administered on 07/21/18 01:52; Admin Dose 5 MG; Start 07/21/18 at 02:00 Hydromorphone HCl (Dilaudid) 1 mg Q4H PRN IV SEVERE PAIN LEVEL 7-10 Last administered on 07/23/18 21:37; Admin Dose 1 MG; Start 07/23/18 at 22:00 Metoclopramide HCl (Reglan) 10 mg Q6H PRN IV NAUSEA AND/OR VOMITING Last administered on 07/26/18 22:31; Admin Dose 10 MG; Start 07/23/18 at 20:30 Norepinephrine 250 ml @ 1.875 mls/ hr TITRATE IV Last administered on 07/25/18 00:42; Admin Dose 37.5 MLS/HR; Start 07/24/18 at 11:00 Collagenase (Santyl) 1 applic DAILY TOP Last administered on 07/28/18at 09:08; Admin Dose 1 APPLIC; Start 07/25/18 at 09:00 Phenylephrine HCl 80 mg/Dextrose 250 ml @ 18.75 mls/ hr TITRATE IV Last administered on 07/28/18at 12:24; Admin Dose 33.75 MLS/HR; Start 07/24/18 at 20:30 Insulin Aspart (Novolog Insulin Pen) NOVOLOG *MILD* ALGORI... Q4 SC Last administered on 07/27/18 18:14; Admin Dose 1 UNIT; Start 07/24/18 at 21:00 Propofol 100 ml @ 1.851 mls/ hr Q12H IV Last administered on 07/28/18at 03:36; Admin Dose 9.255 MLS/HR; Start 07/25/18 at 13:00 Pantoprazole (Protonix Iv) 40 mg BID@06,18 IV Last administered on 07/28/18 05:19; Admin Dose 40 MG; Start 07/26/18 at 18:00 Insulin Glargine (Lantus) 10 units DAILY@0800 SC Last administered on 07/28/18 09:15; Admin Dose 10 UNITS; Start 07/27/18 at 08:00 Fentanyl 100 ml @ 2.5 mls/hr TITRATE IV Last administered on 07/28/18 08:38; Admin Dose 2.5 MLS/HR; Start 07/26/18 at 11:00 Metoclopramide HCl (Reglan) 5 mg Q6 IV Last administered on 07/28/18at 12:13; Admin Dose 5 MG; Start 07/27/18 at 18:00 Levothyroxine Sodium (Synthroid Iv) 50 mcg DAILY@06 IV Last administered on 07/28/18 05:19; Admin Dose 50 MCG; Start 07/28/18 at 06:00 Vancomycin HCl (Vanco Iv Per Pharmacy) VANCOMYCIN PER PHARMACY PER PROTOCOL XX ; Start 07/28/18 at 10:30 Cefepime HCl 50 ml @ 100 mls/hr Q24H IVPB Last administered on 07/28/18at 12:13; Admin Dose 100 MLS/HR; Start 07/28/18 at 12:00 Vancomycin HCl 1.25 gm/Sodium Chloride 250 ml @ 83.333 mls/ hr ONCE IVPB Last administered on 07/28/18at 12:14; Admin Dose 83.333 MLS/HR; Start 07/28/18 at 13:00; Stop 07/28/18 at 15:59 Assessment/Plan Hospital Course (Demo Recall) 1. Cardiac arrhythmia concerning for possible atrial fibrillation but on review of screen likely more consistent with sinus rhythm with frequent premature atrial contractions, possible very short run of paroxysmal atrial fibrillation. We will follow. Pt had a short episode of a. fib - bach to sinus now. Did not convert with amio - will stop now. Rate controlled. 2. Abnormal electrocardiogram, assess for acute coronary syndrome - r/o Mi. 3. Hypertension, uncontrolled - con't to adjust Rx and HD. BP stable. 4. History of open heart surgery - no CP now. 5. End-stage renal disease on hemodialysis- done day prior - BP low now. 6. Shortness of breath - intubated now. 7. Congestive heart failure by x-ray, question systolic versus diastolic, likely acute on chronic given presentation. Con't to remove fluid as tolerated. Now intubated. Remove fluid with HD. 8. Diabetes mellitus- on meds, keep euglycemic. 9. Anemia.- h/o bleeding. 10. Hypotension - restart levo gtt. AMY GRIDER MD Jul 28, 2018 13:22
--- NOTE | 2018-07-28 17:38 | PN ---
Date/Time of Note Date/Time of Note DATE: 07/28/18 TIME: 17:35 Assessment/Plan VTE Prophylaxis Risk score (from [facility] [place]0 risk: 25 SCD applied (from [facility] [place]): No SCD contraindicated: other Pharmacological prophylaxis: other Pharm contraindication: other Lines/Catheters IV Catheter Type (from [facility]): A Line Urinary Cath still in place: Yes Reason Cath still needed: other (indicate) Assessment/Plan Hospital Course 1. s/p cardiopulmonary arrest. 2 Acute comminuted fractures of the distal tibia and fibula that involve the distal tibiofibular joint.. S/p manipulative reduction under anesthesia & immobilization in a short leg cast by dr Stafford 07/20/2018. Left hip fracture 2. VDRF 3. Metabolic acidosis. 4. Cardiomegaly and pulmonary edema. 5. Aortic atherosclerosis. 6. History of congestive heart failure. 7. History of diabetic retinopathy, nephropathy. 8. Hypoalbuminemia. 9. The patient has right lower extremity brace, Left BKA 10. Left stump bruise, 11 LING INFILTERATE 12 PLEURAL EFFUSION 13 elevated troponin in the setting of end-stage kidney disease 14. Anemia 15. Osteoporosis 16. Hyponatremia. resolved 17. Hypothyroidism PLAN HD THORACENTESIS Result Diagram: 07/28/18 0415 07/28/18 0415 Results 24hrs Laboratory Tests Test 07/27/18 18:11 07/27/18 21:40 07/27/18 23:56 07/28/18 04:15 Bedside Glucose 151 112 114 White Blood Count 18.6 H Red Blood Count 2.98 L Hemoglobin 9.6 L Hematocrit 28.9 L Mean Corpuscular 97.0 Volume Mean Corpuscular 32.2 Hemoglobin Mean Corpuscular 33.2 Hemoglobin Concen t Red Cell 19.3 H Distribution Width Platelet Count 107 L Mean Platelet 13.0 H Volume Immature 1.200 H Granulocytes % Neutrophils % 89.9 H Lymphocytes % 4.2 L Monocytes % 3.2 Eosinophils % 1.2 Basophils % 0.3 Nucleated Red 1.6 H Blood Cells % Immature 0.230 H Granulocytes # Neutrophils # 16.7 H Lymphocytes # 0.8 Monocytes # 0.6 Eosinophils # 0.2 Basophils # 0.1 Nucleated Red 0.3 H Blood Cells # Sodium Level 134 L Potassium Level 3.7 Chloride Level 96 L Carbon Dioxide 29 Level Anion Gap 9 Blood Urea 16 # Nitrogen Creatinine 1.81 H Est Glomerular Filtrat Rate mL/min Glucose Level 113 # Calcium Level 7.7 L Phosphorus Level 2.3 #L Magnesium Level 1.7 Test 07/28/18 05:18 07/28/18 07:00 07/28/18 09:01 Bedside Glucose 127 137 Blood Gas Blood arterial Specimen Source Arterial Blood 07/28/2018 9:20:4 Date Drawn 8 AM Arterial Blood pH 7.563 *H (Temp corrected) Arterial Blood 25.3 L pCO2 (Temp correct) Arterial Blood 55.7 L pO2 (Temp corrected) Arterial Blood 22.3 HCO3 Arterial Blood 0.9 Base Excess Arterial Blood 93.1 L Oxygen Saturation Low Test N/A Arterial Blood A-Line Gas Puncture Site Arterial 0.4 Blood Carboxyhemo globin Arterial Blood 0.2 Methemoglobin Blood Gas A-a O2 128.5 H Differential Oxyhemoglobin 92.5 L Percent Blood Gas 37.0 Temperature Blood Gas 14.0 Respiration Rate Blood Gas Actual 33 Respiration Rate Blood Gas VENT - AC Modality FiO2 30.0 Blood Gas Tidal 450.0 Volume Blood Gas Low 5.0 PEEP Setting Blood Gas Nellie GATES RN Critical Value Read Back Blood Gas Carolyn GARCIA [facility] Notified Whom Blood Gas 07/28/2018 9:39:0 Notified Time 4 AM Subjective 24 Hr Interval Summary Subjective hx not possible: other (ON VENT) Exam/Review of Systems Exam Vitals Vital Signs Date Temp Pulse Resp B/P (MAP) Pulse Ox O2 O2 Flow FiO2 Time Delivery Rate 07/28/18 89 26 100 45 16:55 07/28/18 86/46 (59) Mechanical 16:30 Ventilator 07/28/18 97.8 16:00 07/24/18 2.0 08:52 Intake and Output 07/27/18 07/27/18 07/28/18 1515:00 23:00 07:00 IntakeIntake Total 423.2 ml 584.869 ml 623.232 ml OutputOutput Total 30 ml 1730 ml 11 ml BalanceBalance 393.2 ml -1145.131 ml 612.232 ml Respiratory: diminished breath sounds Cardiovascular: regular rate and rhythm Gastrointestinal: soft, bowel sounds (+) Extremities: edema (+) Results Results 24hrs Laboratory Tests Test 07/27/18 18:11 07/27/18 21:40 07/27/18 23:56 07/28/18 04:15 Bedside Glucose 151 112 114 White Blood Count 18.6 H Red Blood Count 2.98 L Hemoglobin 9.6 L Hematocrit 28.9 L Mean Corpuscular 97.0 Volume Mean Corpuscular 32.2 Hemoglobin Mean Corpuscular 33.2 Hemoglobin Concen t Red Cell 19.3 H Distribution Width Platelet Count 107 L Mean Platelet 13.0 H Volume Immature 1.200 H Granulocytes % Neutrophils % 89.9 H Lymphocytes % 4.2 L Monocytes % 3.2 Eosinophils % 1.2 Basophils % 0.3 Nucleated Red 1.6 H Blood Cells % Immature 0.230 H Granulocytes # Neutrophils # 16.7 H Lymphocytes # 0.8 Monocytes # 0.6 Eosinophils # 0.2 Basophils # 0.1 Nucleated Red 0.3 H Blood Cells # Sodium Level 134 L Potassium Level 3.7 Chloride Level 96 L Carbon Dioxide 29 Level Anion Gap 9 Blood Urea 16 # Nitrogen Creatinine 1.81 H Est Glomerular Filtrat Rate mL/min Glucose Level 113 # Calcium Level 7.7 L Phosphorus Level 2.3 #L Magnesium Level 1.7 Test 07/28/18 05:18 07/28/18 07:00 07/28/18 09:01 Bedside Glucose 127 137 Blood Gas Blood arterial Specimen Source Arterial Blood 07/28/2018 9:20:4 Date Drawn 8 AM Arterial Blood pH 7.563 *H (Temp corrected) Arterial Blood 25.3 L pCO2 (Temp correct) Arterial Blood 55.7 L pO2 (Temp corrected) Arterial Blood 22.3 HCO3 Arterial Blood 0.9 Base Excess Arterial Blood 93.1 L Oxygen Saturation Low Test N/A Arterial Blood A-Line Gas Puncture Site Arterial 0.4 Blood Carboxyhemo globin Arterial Blood 0.2 Methemoglobin Blood Gas A-a O2 128.5 H Differential Oxyhemoglobin 92.5 L Percent Blood Gas 37.0 Temperature Blood Gas 14.0 Respiration Rate Blood Gas Actual 33 Respiration Rate Blood Gas VENT - AC Modality FiO2 30.0 Blood Gas Tidal 450.0 Volume Blood Gas Low 5.0 PEEP Setting Blood Gas Nellie GATES RN Critical Value Read Back Blood Gas Carolyn GARCIA RCP Notified Whom Blood Gas 07/28/2018 9:39:0 Notified Time 4 AM Medications Medication Current Medications Atorvastatin Calcium (Lipitor) 40 mg QHS PO Last administered on 07/27/18at 21:44; Admin Dose 40 MG; Start 07/14/18 at 21:00 Multivit/Ca Carb/ B Cmplx/FA/Prenat (Shyann-Raj) 1 tab DAILY PO Last administered on 07/28/18at 09:08; Admin Dose 1 TAB; Start 07/14/18 at 09:00 Tramadol HCl (Ultram) 50 mg TID PRN PO PAIN LEVEL 6-10 Last administered on 07/24/18at 03:35; Admin Dose 50 MG; Start 07/13/18 at 23:30 Acetaminophen (Tylenol Tab) 650 mg Q6H PRN PO MILD PAIN(1-3)OR ELEVATED TEMP; Start 07/13/18 at 23:30 Hydralazine HCl (Apresoline) 20 mg Q6H PRN IV sbp over 170 Last administered on 07/14/18at 11:56; Admin Dose 20 MG; Start 07/13/18 at 23:30 Miscellaneous Information 1 ea NOTE XX ; Start 07/13/18 at 23:30 Glucose (Glutose) 15 gm Q15M PRN PO DECREASED GLUCOSE; Start 07/13/18 at 23:30 Glucose (Glutose) 22.5 gm Q15M PRN PO DECREASED GLUCOSE; Start 07/13/18 at 23:30 Dextrose (D50w Syringe) 25 ml Q15M PRN IV DECREASED GLUCOSE Last administered on 07/24/18at 08:19; Admin Dose 25 ML; Start 07/13/18 at 23:30 Dextrose (D50w Syringe) 50 ml Q15M PRN IV DECREASED GLUCOSE; Start 07/13/18 at 23:30 Glucagon (Glucagen) 1 mg Q15M PRN IM DECREASED GLUCOSE; Start 07/13/18 at 23:30 Glucose (Glutose) 15 gm Q15M PRN BUCCAL DECREASED GLUCOSE; Start 07/13/18 at 23:30 Ondansetron HCl (Zofran Inj) 4 mg Q4H PRN IV NAUSEA AND/OR VOMITING Last administered on 07/23/18at 16:30; Admin Dose 4 MG; Start 07/14/18 at 00:30 Miscellaneous Information (Pending [facility] Order For Wound Care) This patient easley... PRN PRN XX WOUND CARE; Start 07/14/18 at 04:30 Heparin Sodium (Porcine) (Heparin (1000 Units/ml)) 4,000 unit AFTER DIALYSIS CATHETER Last administered on 07/27/18 20:16; Admin Dose 4,000 UNIT; Start 07/17/18 at 12:30 Diagnostic Test (Pha) (Accu-Chek) 1 ea 02 XX Last administered on 07/28/18 02:43; Admin Dose 1 EA; Start 07/19/18 at 02:00 IV Flush (NS 3 ml) 3 ml PER PROTOCOL IV ; Start 07/20/18 at 11:30 Calcium/Vitamin D (Oyster Shell/ Vit-D (500/200)) 1 tab BID PO Last administered on 07/28/18 09:09; Admin Dose 1 TAB; Start 07/20/18 at 21:00 Metoprolol Tartrate (Lopressor) 5 mg Q4H PRN IV HR > 110; Hold if SBP < 100 Last administered on 07/21/18 01:52; Admin Dose 5 MG; Start 07/21/18 at 02:00 Hydromorphone HCl (Dilaudid) 1 mg Q4H PRN IV SEVERE PAIN LEVEL 7-10 Last administered on 07/23/18 21:37; Admin Dose 1 MG; Start 07/23/18 at 22:00 Metoclopramide HCl (Reglan) 10 mg Q6H PRN IV NAUSEA AND/OR VOMITING Last administered on 07/26/18 22:31; Admin Dose 10 MG; Start 07/23/18 at 20:30 Norepinephrine 250 ml @ 1.875 mls/ hr TITRATE IV Last administered on 07/25/18 00:42; Admin Dose 37.5 MLS/HR; Start 07/24/18 at 11:00 Collagenase (Santyl) 1 applic DAILY TOP Last administered on 07/28/18 09:08; Admin Dose 1 APPLIC; Start 07/25/18 at 09:00 Phenylephrine HCl 80 mg/Dextrose 250 ml @ 18.75 mls/ hr TITRATE IV Last administered on 07/28/18 12:24; Admin Dose 33.75 MLS/HR; Start 07/24/18 at 20:30 Insulin Aspart (Novolog Insulin Pen) NOVOLOG *MILD* ALGORI... Q4 SC Last administered on 07/27/18 18:14; Admin Dose 1 UNIT; Start 07/24/18 at 21:00 Propofol 100 ml @ 1.851 mls/ hr Q12H IV Last administered on 07/28/18at 03:36; Admin Dose 9.255 MLS/HR; Start 07/25/18 at 13:00 Pantoprazole (Protonix Iv) 40 mg BID@06,18 IV Last administered on 07/28/18at 05:19; Admin Dose 40 MG; Start 07/26/18 at 18:00 Insulin Glargine (Lantus) 10 units DAILY@0800 SC Last administered on 07/28/18at 09:15; Admin Dose 10 UNITS; Start 07/27/18 at 08:00 Fentanyl 100 ml @ 2.5 mls/hr TITRATE IV Last administered on 07/28/18at 08:38; Admin Dose 2.5 MLS/HR; Start 07/26/18 at 11:00 Metoclopramide HCl (Reglan) 5 mg Q6 IV Last administered on 07/28/18at 12:13; Admin Dose 5 MG; Start 07/27/18 at 18:00 Levothyroxine Sodium (Synthroid Iv) 50 mcg DAILY@06 IV Last administered on 07/28/18at 05:19; Admin Dose 50 MCG; Start 07/28/18 at 06:00 Vancomycin HCl (Vanco Iv Per Pharmacy) VANCOMYCIN PER PHARMACY PER PROTOCOL XX ; Start 07/28/18 at 10:30 Cefepime HCl 50 ml @ 100 mls/hr Q24H IVPB Last administered on 07/28/18at 12:13 ; Admin Dose 100 MLS/HR; Start 07/28/18 at 12:00 Midodrine (Proamatine) 5 mg TID@,13,17 PO ; Start 07/28/18 at 17:00 Hydrocortisone (Solu-Cortef) 50 mg DAILY IV ; Start 07/29/18 at 09:00 Sodium Phosphate 15 mmol/Sodium Chloride 255 ml @ 63.75 mls/ hr ONCE ONCE IVPB ; Start 07/28/18 at 18:30; Stop 07/28/18 at 22:29 SAM KRUEGER MD Jul 28, 2018 17:38
[2018-07-28] MEDS: MIDODRINE 5 MG TAB PO SCH (17:58)
[2018-07-28] MEDS ORDERED: SODIUM PHOSPHATE 15 MMOL in SOD CHLORIDE 0.9% 250 ML IVPB ONE (18:30)
--- NOTE | 2018-07-28 18:40 | CONS ---
Assessment/Plan Assessment/Plan Assessment/Plan (Daily) Assessment/Plan (Daily) IMPRESSION: 1. Anemia, rule out gastrointestinal bleeding. 2. Status post pulseless electrical activity period and cardiac arrest. 3. Ventilator-dependent respiratory failure. 4. End-stage renal disease, on dialysis. 5. 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 6. Left stump bruises. 7. Ankle fracture. 8. Cirrhosis of liver 9. Gastroparesis Plan Continue present care Resume feeding through the NG tube. Patient is tolerating feeding will increase to 35 cc/h Patient is unstable for any endoscopy procedures and there is no active GI bleeding at this point Patient will be placed on lactulose and Reglan Consultation Date/Type/Reason Admit Date/Time Jul 13, 2018 at 21:32 Initial Consult Date Requesting Provider: ADAM DUARTE MD Date/Time of Note DATE: 07/28/18 TIME: 18:39 24 HR Interval Summary Constitutional: improved Exam/Review of Systems Exam Vitals Vital Signs Date Temp Pulse Resp B/P (MAP) Pulse Ox O2 O2 Flow FiO2 Time Delivery Rate 07/28/18 89 26 100 45 16:55 07/28/18 86/46 (59) Mechanical 16:30 Ventilator 07/28/18 97.8 16:00 07/24/18 2.0 08:52 Intake and Output 07/27/18 07/27/18 07/28/18 1515:00 23:00 07:00 IntakeIntake Total 423.2 ml 584.869 ml 623.232 ml OutputOutput Total 30 ml 1730 ml 11 ml BalanceBalance 393.2 ml -1145.131 ml 612.232 ml Constitutional: alert, oriented ENMT: nl external ears & nose Neck: jvd Gastrointestinal: soft, nl liver, spleen, non-tender Results Result Diagram: 07/28/18 0415 07/28/18 0415 Results 24hrs Laboratory Tests Test 07/27/18 21:40 07/27/18 23:56 07/28/18 04:15 07/28/18 05:18 Bedside Glucose 112 114 127 White Blood Count 18.6 H Red Blood Count 2.98 L Hemoglobin 9.6 L Hematocrit 28.9 L Mean Corpuscular 97.0 Volume Mean Corpuscular 32.2 Hemoglobin Mean Corpuscular 33.2 Hemoglobin Concen t Red Cell 19.3 H Distribution Width Platelet Count 107 L Mean Platelet 13.0 H Volume Immature 1.200 H Granulocytes % Neutrophils % 89.9 H Lymphocytes % 4.2 L Monocytes % 3.2 Eosinophils % 1.2 Basophils % 0.3 Nucleated Red 1.6 H Blood Cells % Immature 0.230 H Granulocytes # Neutrophils # 16.7 H Lymphocytes # 0.8 Monocytes # 0.6 Eosinophils # 0.2 Basophils # 0.1 Nucleated Red 0.3 H Blood Cells # Sodium Level 134 L Potassium Level 3.7 Chloride Level 96 L Carbon Dioxide 29 Level Anion Gap 9 Blood Urea 16 # Nitrogen Creatinine 1.81 H Est Glomerular Filtrat Rate mL/min Glucose Level 113 # Calcium Level 7.7 L Phosphorus Level 2.3 #L Magnesium Level 1.7 Test 07/28/18 07:00 07/28/18 09:01 07/28/18 18:08 Blood Gas Blood arterial Specimen Source Arterial Blood 07/28/2018 9:20:4 Date Drawn 8 AM Arterial Blood pH 7.563 *H (Temp corrected) Arterial Blood 25.3 L pCO2 (Temp correct) Arterial Blood 55.7 L pO2 (Temp corrected) Arterial Blood 22.3 HCO3 Arterial Blood 0.9 Base Excess Arterial Blood 93.1 L Oxygen Saturation Low Test N/A Arterial Blood A-Line Gas Puncture Site Arterial 0.4 Blood Carboxyhemo globin Arterial Blood 0.2 Methemoglobin Blood Gas A-a O2 128.5 H Differential Oxyhemoglobin 92.5 L Percent Blood Gas 37.0 Temperature Blood Gas 14.0 Respiration Rate Blood Gas Actual 33 Respiration Rate Blood Gas VENT - AC Modality FiO2 30.0 Blood Gas Tidal 450.0 Volume Blood Gas Low 5.0 PEEP Setting Blood Gas Nellie GATES RN Critical Value Read Back Blood Gas Carolyn GARCIA RCP Notified Whom Blood Gas 07/28/2018 9:39:0 Notified Time 4 AM Bedside Glucose 137 139 Medications Medication Current Medications Atorvastatin Calcium (Lipitor) 40 mg QHS PO Last administered on 07/27/18at 21:44; Admin Dose 40 MG; Start 07/14/18 at 21:00 Multivit/Ca Carb/ B Cmplx/FA/Prenat (Shyann-Raj) 1 tab DAILY PO Last administered on 07/28/18at 09:08; Admin Dose 1 TAB; Start 07/14/18 at 09:00 Tramadol HCl (Ultram) 50 mg TID PRN PO PAIN LEVEL 6-10 Last administered on 07/24/18at 03:35; Admin Dose 50 MG; Start 07/13/18 at 23:30 Acetaminophen (Tylenol Tab) 650 mg Q6H PRN PO MILD PAIN(1-3)OR ELEVATED TEMP; Start 07/13/18 at 23:30 Hydralazine HCl (Apresoline) 20 mg Q6H PRN IV sbp over 170 Last administered on 07/14/18at 11:56; Admin Dose 20 MG; Start 07/13/18 at 23:30 Miscellaneous Information 1 ea NOTE XX ; Start 07/13/18 at 23:30 Glucose (Glutose) 15 gm Q15M PRN PO DECREASED GLUCOSE; Start 07/13/18 at 23:30 Glucose (Glutose) 22.5 gm Q15M PRN PO DECREASED GLUCOSE; Start 07/13/18 at 23:30 Dextrose (D50w Syringe) 25 ml Q15M PRN IV DECREASED GLUCOSE Last administered on 07/24/18at 08:19; Admin Dose 25 ML; Start 07/13/18 at 23:30 Dextrose (D50w Syringe) 50 ml Q15M PRN IV DECREASED GLUCOSE; Start 07/13/18 at 23:30 Glucagon (Glucagen) 1 mg Q15M PRN IM DECREASED GLUCOSE; Start 07/13/18 at 23:30 Glucose (Glutose) 15 gm Q15M PRN BUCCAL DECREASED GLUCOSE; Start 07/13/18 at 23:30 Ondansetron HCl (Zofran Inj) 4 mg Q4H PRN IV NAUSEA AND/OR VOMITING Last administered on 07/23/18at 16:30; Admin Dose 4 MG; Start 07/14/18 at 00:30 Miscellaneous Information ([facility]) This patient easley... PRN PRN XX WOUND CARE; Start 07/14/18 at 04:30 Heparin Sodium (Porcine) (Heparin (1000 Units/ml)) 4,000 unit AFTER DIALYSIS CATHETER Last administered on 07/27/18at 20:16; Admin Dose 4,000 UNIT; Start 07/17/18 at 12:30 Diagnostic Test (Pha) (Accu-Chek) 1 ea 02 XX Last administered on 2/17/19at 02:43; Admin Dose 1 EA; Start 07/19/18 at 02:00 IV Flush (NS 3 ml) 3 ml PER PROTOCOL IV ; Start 07/20/18 at 11:30 Calcium/Vitamin D (Oyster Shell/ Vit-D (500/200)) 1 tab BID PO Last administered on 07/28/18 09:09; Admin Dose 1 TAB; Start 07/20/18 at 21:00 Metoprolol Tartrate (Lopressor) 5 mg Q4H PRN IV HR > 110; Hold if SBP < 100 Last administered on 07/21/18 01:52; Admin Dose 5 MG; Start 07/21/18 at 02:00 Hydromorphone HCl (Dilaudid) 1 mg Q4H PRN IV SEVERE PAIN LEVEL 7-10 Last administered on 07/23/18 21:37; Admin Dose 1 MG; Start 07/23/18 at 22:00 Metoclopramide HCl (Reglan) 10 mg Q6H PRN IV NAUSEA AND/OR VOMITING Last administered on 07/26/18 22:31; Admin Dose 10 MG; Start 07/23/18 at 20:30 Norepinephrine 250 ml @ 1.875 mls/ hr TITRATE IV Last administered on 07/25/18 00:42; Admin Dose 37.5 MLS/HR; Start 07/24/18 at 11:00 Collagenase (Santyl) 1 applic DAILY TOP Last administered on 07/28/18 09:08; Admin Dose 1 APPLIC; Start 07/25/18 at 09:00 Phenylephrine HCl 80 mg/Dextrose 250 ml @ 18.75 mls/ hr TITRATE IV Last administered on 07/28/18 12:24; Admin Dose 33.75 MLS/HR; Start 07/24/18 at 20:30 Insulin Aspart (Novolog Insulin Pen) NOVOLOG *MILD* ALGORI... Q4 SC Last administered on 07/27/18 18:14; Admin Dose 1 UNIT; Start 07/24/18 at 21:00 Propofol 100 ml @ 1.851 mls/ hr Q12H IV Last administered on 07/28/18 03:36; Admin Dose 9.255 MLS/HR; Start 07/25/18 at 13:00 Pantoprazole (Protonix Iv) 40 mg BID@06,18 IV Last administered on 07/28/18 17:57; Admin Dose 40 MG; Start 07/26/18 at 18:00 Insulin Glargine (Lantus) 10 units DAILY@0800 SC Last administered on 07/28/18at 09:15; Admin Dose 10 UNITS; Start 07/27/18 at 08:00 Fentanyl 100 ml @ 2.5 mls/hr TITRATE IV Last administered on 07/28/18at 17:59; Admin Dose 10 MLS/HR; Start 07/26/18 at 11:00 Metoclopramide HCl (Reglan) 5 mg Q6 IV Last administered on 07/28/18at 17:57; Admin Dose 5 MG; Start 07/27/18 at 18:00 Levothyroxine Sodium (Synthroid Iv) 50 mcg DAILY@06 IV Last administered on 07/28/18at 05:19; Admin Dose 50 MCG; Start 07/28/18 at 06:00 Vancomycin HCl (Vanco Iv Per Pharmacy) VANCOMYCIN PER PHARMACY PER PROTOCOL XX ; Start 07/28/18 at 10:30 Cefepime HCl 50 ml @ 100 mls/hr Q24H IVPB Last administered on 07/28/18at 12:13; Admin Dose 100 MLS/HR; Start 07/28/18 at 12:00 Midodrine (Proamatine) 5 mg TID@,,17 PO Last administered on 07/28/18at 17:58; Admin Dose 5 MG; Start 07/28/18 at 17:00 Hydrocortisone (Solu-Cortef) 50 mg DAILY IV ; Start 07/29/18 at 09:00 Sodium Phosphate 15 mmol/Sodium Chloride 255 ml @ 63.75 mls/ hr ONCE ONCE IVPB Last administered on 07/28/18at 17:57; Admin Dose 63.75 MLS/HR; Start 07/28/18 at 18:30; Stop 07/28/18 at 22:29 GLORIA TURNER MD Jul 28, 2018 18:40
[2018-07-28] MEDS: ATORVASTATIN 40 MG TAB PO SCH (20:30)
[2018-07-29] VITALS (100 sets, daily range): BP systolic 77–159; BP diastolic 25–81; PULSE 62–113; RESP 9–37
[2018-07-29] MEDS: METOCLOPRAMIDE 10 MG INJ IV SCH ×5 (00:07→23:54)
[2018-07-29] MEDS: INSULIN ASPART [NOVOLOG] 3 ML PEN SC SCH ×6 (00:10→21:00)
[2018-07-29] MEDS: PHENYLephrine 80 MG in DEXTROSE 5% 242 ML IV SCH ×4 (01:19→19:39)
[2018-07-29] MEDS: NORepinephrine 8MG/250 ML (PMX 250 ML IV SCH (01:20)
[2018-07-29] MEDS: ACCU-CHEK XX SCH (02:23)
[2018-07-29] MEDS: FENTAnyl (DRIP) 1000 mcg/100mL 100 ML IV SCH (05:29)
[2018-07-29] MEDS: PANTOPRAZOLE 40 MG INJ IV SCH ×2 (05:30→17:17)
[2018-07-29] MEDS: LEVOTHYROXINE 100 MCG VIAL IV SCH (05:30)
[2018-07-29] MEDS: INSULIN GLARGINE [LANTus] (100 UNITS/ML) SYG SC SCH (08:02)
[2018-07-29] MEDS: BALSAM PERU/CASTOR OIL 60 GM TUBE TOP SCH ×2 (08:04→21:08)
[2018-07-29] MEDS: MULTIVIT/CA CARB/B CMPLX/FA TAB PO SCH (08:04)
[2018-07-29] MEDS: MIDODRINE 5 MG TAB PO SCH ×3 (08:04→17:17)
[2018-07-29] MEDS: COLLAGENASE 5 GM (UD JAR) TOP SCH (08:04)
[2018-07-29] MEDS: CALCIUM/VITAMIN D (500/200) TAB PO SCH ×2 (08:04→21:08)
--- NOTE | 2018-07-29 08:48 | PN ---
Date/Time of Note Date/Time of Note DATE: 07/29/18 TIME: 08:42 Assessment/Plan VTE Prophylaxis Risk score (from Ns)>0 risk: 25 SCD applied (from [facility]): No SCD contraindicated: low risk/ambulating Pharmacological prophylaxis: NA/contraindicated Pharm contraindication: low risk/ambulating Lines/Catheters [facility]from [facility] A Line Urinary Cath still in place: Yes Reason Cath still needed: urinary retention Assessment/Plan Hospital Course 78 y/o with IMPRESSION: # Cardiac pulmonary arrest s/p vfib # Respiratory failure s/p intubation # Hypotension s/p shock? cardiac vs hypovolemic/septic #LE me anemia likely to secondary to GI bleed H&H stable status post unit 2 units of blood # Hyperkalemia due to missed hemodialysis.due to fall # Acute comminuted fractures of the distal tibia and fibula that involve the distal tibiofibular joint. Distal tibia fracture extends to within 0.3 cm of the tibial plafond but does not involve the articular surface. The appearance is in keeping with an extra-articular Pilon fracture. #. Hyponatremia. resolved #. Metabolic acidosis. # Cardiomegaly and pulmonary edema. #. Aortic atherosclerosis. #. History of congestive heart failure. # History of diabetic retinopathy, nephropathy. #. Hypoalbuminemia. # The patient has right lower extremity brace.with fracture #. Left stump bruise now noticed to have a fracture on the left hip on the x- rays # ? AFIB. # Congestive heart failure by x-ray, question systolic versus diastolic, likely acute on chronic given presentation. # elevated troponin in the setting of end-stage kidney disease # Epigastric pain r/o gastritis/ GB disease> CT scan was pending # elevated troponin in the setting of cardiac arrest downtrending # Leukocytosis # AMS ? sedation vs s/p cpr arrest with encephalopathy vs stroke vs sepsis Plan -decrease sedation, spoke to nurse and mental status need to be assessed - Neuro consult with Dr Rodgers - CT head - f/u midodrine and hydrocortisone - cw vancomycin/cefepime - iv K and Mg today - HD on hold today due to vasporessor needs -Feeding as tolerated - Hb 8.8 , no evidence of bleeding -H&H stable status post 2 units of blood -Dr. [place] was also called for fracture of the left hip> intervention currently as patient is unstable -Hold anticoagulation due to bleeding - fu cardiac/pul recs Result Diagram: 07/29/18 0330 07/29/18 0330 Results 24hrs Laboratory Tests Test 07/28/18 09:01 07/28/18 18:08 07/28/18 20:32 07/28/18 23:56 Bedside Glucose 137 139 139 147 Test 07/29/18 03:30 07/29/18 05:55 07/29/18 07:46 White Blood Count 14.6 #H Red Blood Count 2.71 L Hemoglobin 8.8 L Hematocrit 26.5 L Mean Corpuscular 97.8 Volume Mean Corpuscular 32.5 Hemoglobin Mean Corpuscular 33.2 Hemoglobin Concent Red Cell 19.2 H Distribution Width Platelet Count 103 L Mean Platelet Volume 12.9 H Immature 1.900 H Granulocytes % Neutrophils % Segmented 77 Neutrophils % (Manual) Band Neutrophils % 7 H (Manual) Lymphocytes % Lymphocytes % 11 L (Manual) Monocytes % Monocytes % (Manual) 3 Eosinophils % Eosinophils % 1 (Manual) Basophils % Myelocytes % 1 H (Manual) Nucleated Red Blood 2 H Cells % Immature 0.280 H Granulocytes # Neutrophils # Neutrophils # 11.4 H (Manual) Band Neutrophils # 1.0 H Lymphocytes (Manual) 1.6 Lymphocytes # Monocytes # Monocytes # (Manual) 0.4 Eosinophils # Basophils # Myelocytes # 0.1 H Nucleated Red Blood Cells # Platelet Estimate DECREASED Giant Platelets 4 H Polychromasia 3+ Poikilocytosis 3+ Anisocytosis 2+ Microcytosis 1+ Macrocytosis 1+ Sodium Level 132 L Potassium Level 3.4 L Chloride Level 94 L Carbon Dioxide Level 24 Anion Gap 14 H Blood Urea Nitrogen 20 Creatinine 2.16 H Est Glomerular Filtrat Rate mL/min Glucose Level 165 Lactic Acid Level 1.8 Calcium Level 7.1 L Phosphorus Level 3.0 Magnesium Level 1.6 L Bedside Glucose 178 174 Subjective 24 Hr Interval Summary Free Text/Dictation sbp in 90-100'S on max phenylnephrine and levophed currently on sedation with propofol/fentanyl Exam/Review of Systems Exam Vitals Vital Signs Date Temp Pulse Resp B/P (MAP) Pulse Ox O2 O2 Flow FiO2 Time Delivery Rate 07/29/18 45 08:00 07/29/18 97.2 82 16 99/34 (55) 94 Mechanical 08:00 Ventilator Intake and Output 2/17/19 2/17/19 2/18/19 1515:00 23:00 07:00 IntakeIntake Total 661.9 ml 1038.710 ml 756.121 ml OutputOutput Total 19 ml 21 ml 10 ml BalanceBalance 642.9 ml 1017.710 ml 746.121 ml Exam Respiratory: diminished breath sounds Cardiovascular: regular rate and rhythm Gastrointestinal: soft, bowel sounds (+) Extremities: edema (+) 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 sedated currently Results Results 24hrs Laboratory Tests Test 07/28/18 09:01 07/28/18 18:08 07/28/18 20:32 07/28/18 23:56 Bedside Glucose 137 139 139 147 Test 07/29/18 03:30 07/29/18 05:55 07/29/18 07:46 White Blood Count 14.6 #H Red Blood Count 2.71 L Hemoglobin 8.8 L Hematocrit 26.5 L Mean Corpuscular 97.8 Volume Mean Corpuscular 32.5 Hemoglobin Mean Corpuscular 33.2 Hemoglobin Concent Red Cell 19.2 H Distribution Width Platelet Count 103 L Mean Platelet Volume 12.9 H Immature 1.900 H Granulocytes % Neutrophils % Segmented 77 Neutrophils % (Manual) Band Neutrophils % 7 H (Manual) Lymphocytes % Lymphocytes % 11 L (Manual) Monocytes % Monocytes % (Manual) 3 Eosinophils % Eosinophils % 1 (Manual) Basophils % Myelocytes % 1 H (Manual) Nucleated Red Blood 2 H Cells % Immature 0.280 H Granulocytes # Neutrophils # Neutrophils # 11.4 H (Manual) Band Neutrophils # 1.0 H Lymphocytes (Manual) 1.6 Lymphocytes # Monocytes # Monocytes # (Manual) 0.4 Eosinophils # Basophils # Myelocytes # 0.1 H Nucleated Red Blood Cells # Platelet Estimate DECREASED Giant Platelets 4 H Polychromasia 3+ Poikilocytosis 3+ Anisocytosis 2+ Microcytosis 1+ Macrocytosis 1+ Sodium Level 132 L Potassium Level 3.4 L Chloride Level 94 L Carbon Dioxide Level 24 Anion Gap 14 H Blood Urea Nitrogen 20 Creatinine 2.16 H Est Glomerular Filtrat Rate mL/min Glucose Level 165 Lactic Acid Level 1.8 Calcium Level 7.1 L Phosphorus Level 3.0 Magnesium Level 1.6 L Bedside Glucose 178 174 Medications Medication Current Medications Atorvastatin Calcium (Lipitor) 40 mg QHS PO Last administered on 07/28/18at 20:30; Admin Dose 40 MG; Start 07/14/18 at 21:00 Multivit/Ca Carb/ B Cmplx/FA/Prenat (Shyann-Raj) 1 tab DAILY PO Last adm inistered on 07/29/18at 08:04; Admin Dose 1 TAB; Start 07/14/18 at 09:00 Tramadol HCl (Ultram) 50 mg TID PRN PO PAIN LEVEL 6-10 Last administered on 07/24/18at 03:35; Admin Dose 50 MG; Start 07/13/18 at 23:30 Acetaminophen (Tylenol Tab) 650 mg Q6H PRN PO MILD PAIN(1-3)OR ELEVATED TEMP; Start 07/13/18 at 23:30 Hydralazine HCl (Apresoline) 20 mg Q6H PRN IV sbp over 170 Last administered on 07/14/18at 11:56; Admin Dose 20 MG; Start 07/13/18 at 23:30 Miscellaneous Information 1 ea NOTE XX ; Start 07/13/18 at 23:30 Glucose (Glutose) 15 gm Q15M PRN PO DECREASED GLUCOSE; Start 07/13/18 at 23:30 Glucose (Glutose) 22.5 gm Q15M PRN PO DECREASED GLUCOSE; Start 07/13/18 at 23:30 Dextrose (D50w Syringe) 25 ml Q15M PRN IV DECREASED GLUCOSE Last administered on 07/24/18at 08:19; Admin Dose 25 ML; Start 07/13/18 at 23:30 Dextrose (D50w Syringe) 50 ml Q15M PRN IV DECREASED GLUCOSE; Start 07/13/18 at 23:30 Glucagon (Glucagen) 1 mg Q15M PRN IM DECREASED GLUCOSE; Start 07/13/18 at 23:30 Glucose (Glutose) 15 gm Q15M PRN BUCCAL DECREASED GLUCOSE; Start 07/13/18 at 23:30 Ondansetron HCl (Zofran Inj) 4 mg Q4H PRN IV NAUSEA AND/OR VOMITING Last administered on 07/23/18at 16:30; Admin Dose 4 MG; Start 07/14/18 at 00:30 Miscellaneous Information (Pending [facility] Order For Wound Care) This patient easley... PRN PRN XX WOUND CARE; Start 07/14/18 at 04:30 Heparin Sodium (Porcine) (Heparin (1000 Units/ml)) 4,000 unit AFTER DIALYSIS CATHETER Last administered on 07/27/18 20:16; Admin Dose 4,000 UNIT; Start 07/17/18 at 12:30 Diagnostic Test (Pha) (Accu-Chek) 1 ea 02 XX Last administered on 07/29/18 02:23; Admin Dose 1 EA; Start 07/19/18 at 02:00 IV Flush (NS 3 ml) 3 ml PER PROTOCOL IV ; Start 07/20/18 at 11:30 Calcium/Vitamin D (Oyster Shell/ Vit-D (500/200)) 1 tab BID PO Last administered on 07/29/18 08:04; Admin Dose 1 TAB; Start 07/20/18 at 21:00 Metoprolol Tartrate (Lopressor) 5 mg Q4H PRN IV HR > 110; Hold if SBP < 100 Last administered on 07/21/18 01:52; Admin Dose 5 MG; Start 07/21/18 at 02:00 Hydromorphone HCl (Dilaudid) 1 mg Q4H PRN IV SEVERE PAIN LEVEL 7-10 Last administered on 07/23/18 21:37; Admin Dose 1 MG; Start 07/23/18 at 22:00 Metoclopramide HCl (Reglan) 10 mg Q6H PRN IV NAUSEA AND/OR VOMITING Last administered on 07/26/18 22:31; Admin Dose 10 MG; Start 07/23/18 at 20:30 Norepinephrine 250 ml @ 1.875 mls/ hr TITRATE IV Last administered on 07/29/18 01:20; Admin Dose 3.75 MLS/HR; Start 07/24/18 at 11:00 Collagenase (Santyl) 1 applic DAILY TOP Last administered on 07/29/18 08:04; Admin Dose 1 APPLIC; Start 07/25/18 at 09:00 Phenylephrine HCl 80 mg/Dextrose 250 ml @ 18.75 mls/ hr TITRATE IV Last administered on 07/29/18 05:29; Admin Dose 56.25 MLS/HR; Start 07/24/18 at 20:30 Insulin Aspart (Novolog Insulin Pen) NOVOLOG *MILD* ALGORI... Q4 SC Last administered on 07/29/18 08:03; Admin Dose 1 UNIT; Start 07/24/18 at 21:00 Propofol 100 ml @ 1.851 mls/ hr Q12H IV Last administered on 07/28/18 20:30; Admin Dose 5.553 MLS/HR; Start 07/25/18 at 13:00 Pantoprazole (Protonix Iv) 40 mg BID@06,18 IV Last administered on 07/29/18 05:30; Admin Dose 40 MG; Start 07/26/18 at 18:00 Insulin Glargine (Lantus) 10 units DAILY@0800 SC Last administered on 07/29/18 08:02; Admin Dose 10 UNITS; Start 07/27/18 at 08:00 Fentanyl 100 ml @ 2.5 mls/hr TITRATE IV Last administered on 07/29/18 05:29; Admin Dose 10 MLS/HR; Start 07/26/18 at 11:00 Metoclopramide HCl (Reglan) 5 mg Q6 IV Last administered on 07/29/18 05:30; Admin Dose 5 MG; Start 07/27/18 at 18:00 Levothyroxine Sodium (Synthroid Iv) 50 mcg DAILY@06 IV Last administered on 07/29/18 05:30; Admin Dose 50 MCG; Start 07/28/18 at 06:00 Vancomycin HCl (Vanco Iv Per Pharmacy) VANCOMYCIN PER PHARMACY PER PROTOCOL XX ; Start 07/28/18 at 10:30 Cefepime HCl 50 ml @ 100 mls/hr Q24H IVPB Last administered on 07/28/18at 12:13; Admin Dose 100 MLS/HR; Start 07/28/18 at 12:00 Midodrine (Proamatine) 5 mg TID@,13,17 PO Last administered on 07/29/18at 08:04; Admin Dose 5 MG; Start 07/28/18 at 17:00 Hydrocortisone (Solu-Cortef) 50 mg DAILY IV ; Start 07/29/18 at 09:00 Magnesium Sulfate/ Dextrose 100 ml @ 100 mls/hr ONCE ONCE IVPB ; Start 07/29/18 at 09:00; Stop 07/29/18 at 09:59; Status UNV Potassium Chloride 100 ml @ 50 mls/hr ONCE ONCE IVPB ; Start 07/29/18 at 09:00; Stop 07/29/18 at 10:59; Status UNV ADAM DUARTE MD Jul 29, 2018 08:48
[2018-07-29] MEDS ORDERED: MAGNESIUM SULFATE 1 GM/D5W 100 ML IVPB ONE (09:00)
[2018-07-29] MEDS ORDERED: POTASSIUM CHLORIDE 100 ML IVPB ONE (09:00)
--- NOTE | 2018-07-29 09:19 | CONS ---
Assessment/Plan Assessment/Plan Hospital Course (Demo Recall) 78 yo female presented in cardiac arrest with prolonged ACLS 1. Anemia, rule out gastrointestinal bleeding. -concern for GI bleed due to drop in H/H prior to cardiac arrest. -per RN bm was brown with potentially old melena, no active bleeding 2. Status post pulseless electrical activity period and cardiac arrest. 3. Ventilator-dependent respiratory failure. 4. End-stage renal disease, on dialysis. 5. 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 6. Left stump bruises. 7. Ankle fracture. 8. Cirrhosis of liver 9. Gastroparesis Plan Family meeting today to discuss goals of care, RN not sure Monitor HH and replace as necessary. Anemia work up Continue present care Continue tube feeds as tolerated Aspiration precautions Patient is unstable for any endoscopy procedures and there is no active GI bleeding at this point Continue on lactulose and Reglan and PPI BID. Pt examined and plan of care discussed with Dr. Hoskins Consultation Date/Type/Reason Admit Date/Time Jul 13, 2018 at 21:32 Initial Consult Date Requesting Provider: ADAM DUARTE MD Date/Time of Note DATE: 07/29/18 TIME: 09:15 24 HR Interval Summary Free Text/Dictation Pt is on propofol, fentanyl, levophed, phenylnephrine gtts. RN states bm yesterday was brown with potentially old melena. No active GI bleeding. Tolerating tube feeds. Exam/Review of Systems Exam Vitals Vital Signs Date Temp Pulse Resp B/P (MAP) Pulse Ox O2 O2 Flow FiO2 Time Delivery Rate 07/29/18 45 08:00 07/29/18 97.2 82 16 99/34 (55) 94 Mechanical 08:00 Ventilator Intake and Output 07/28/18 07/28/18 07/29/18 1515:00 23:00 07:00 IntakeIntake Total 661.9 ml 1038.710 ml 756.121 ml OutputOutput Total 19 ml 21 ml 10 ml BalanceBalance 642.9 ml 1017.710 ml 746.121 ml Eyes: other (left eye cataract over entire pupil and iris) ENMT: intubated Respiratory: crackles/rales Cardiovascular: irregular rhythm Gastrointestinal: soft, bowel sounds, distended Musculoskeletal: other (Left AKA, RLE cast) Extremities: edema (BUE) Neurological: other (sedated) Results Result Diagram: 07/29/18 0330 07/29/18 0330 Results 24hrs Laboratory Tests Test 07/28/18 18:08 07/28/18 20:32 07/28/18 23:56 07/29/18 03:30 Bedside Glucose 139 139 147 White Blood Count 14.6 #H Red Blood Count 2.71 L Hemoglobin 8.8 L Hematocrit 26.5 L Mean Corpuscular 97.8 Volume Mean Corpuscular 32.5 Hemoglobin Mean Corpuscular 33.2 Hemoglobin Concent Red Cell 19.2 H Distribution Width Platelet Count 103 L Mean Platelet Volume 12.9 H Immature 1.900 H Granulocytes % Neutrophils % Segmented 77 Neutrophils % (Manual) Band Neutrophils % 7 H (Manual) Lymphocytes % Lymphocytes % 11 L (Manual) Monocytes % Monocytes % (Manual) 3 Eosinophils % Eosinophils % 1 (Manual) Basophils % Myelocytes % 1 H (Manual) Nucleated Red Blood 2 H Cells % Immature 0.280 H Granulocytes # Neutrophils # Neutrophils # 11.4 H (Manual) Band Neutrophils # 1.0 H Lymphocytes (Manual) 1.6 Lymphocytes # Monocytes # Monocytes # (Manual) 0.4 Eosinophils # Basophils # Myelocytes # 0.1 H Nucleated Red Blood Cells # Platelet Estimate DECREASED Giant Platelets 4 H Polychromasia 3+ Poikilocytosis 3+ Anisocytosis 2+ Microcytosis 1+ Macrocytosis 1+ Sodium Level 132 L Potassium Level 3.4 L Chloride Level 94 L Carbon Dioxide Level 24 Anion Gap 14 H Blood Urea Nitrogen 20 Creatinine 2.16 H Est Glomerular Filtrat Rate mL/min Glucose Level 165 Lactic Acid Level 1.8 Calcium Level 7.1 L Phosphorus Level 3.0 Magnesium Level 1.6 L Test 07/29/18 05:55 07/29/18 07:46 Bedside Glucose 178 174 Medications Medication Current Medications Atorvastatin Calcium (Lipitor) 40 mg QHS PO Last administered on 07/28/18at 20:30; Admin Dose 40 MG; Start 07/14/18 at 21:00 Multivit/Ca Carb/ B Cmplx/FA/Prenat (Shyann-Raj) 1 tab DAILY PO Last administered on 07/29/18at 08:04; Admin Dose 1 TAB; Start 07/14/18 at 09:00 Tramadol HCl (Ultram) 50 mg TID PRN PO PAIN LEVEL 6-10 Last administered on 07/24/18at 03:35; Admin Dose 50 MG; Start 07/13/18 at 23:30 Acetaminophen (Tylenol Tab) 650 mg Q6H PRN PO MILD PAIN(1-3)OR ELEVATED TEMP; Start 07/13/18 at 23:30 Hydralazine HCl (Apresoline) 20 mg Q6H PRN IV sbp over 170 Last administered on 07/14/18at 11:56; Admin Dose 20 MG; Start 07/13/18 at 23:30 Miscellaneous Information 1 ea NOTE XX ; Start 07/13/18 at 23:30 Glucose (Glutose) 15 gm Q15M PRN PO DECREASED GLUCOSE; Start 07/13/18 at 23:30 Glucose (Glutose) 22.5 gm Q15M PRN PO DECREASED GLUCOSE; Start 07/13/18 at 23:30 Dextrose (D50w Syringe) 25 ml Q15M PRN IV DECREASED GLUCOSE Last administered on 07/24/18at 08:19; Admin Dose 25 ML; Start 07/13/18 at 23:30 Dextrose (D50w Syringe) 50 ml Q15M PRN IV DECREASED GLUCOSE; Start 07/13/18 at 23:30 Glucagon (Glucagen) 1 mg Q15M PRN IM DECREASED GLUCOSE; Start 07/13/18 at 23:30 Glucose (Glutose) 15 gm Q15M PRN BUCCAL DECREASED GLUCOSE; Start 07/13/18 at 23:30 Ondansetron HCl (Zofran Inj) 4 mg Q4H PRN IV NAUSEA AND/OR VOMITING Last administered on 07/23/18at 16:30; Admin Dose 4 MG; Start 07/14/18 at 00:30 Miscellaneous Information (Pending Santyl Order For Wound Care) This patient easley... PRN PRN XX WOUND CARE; Start 07/14/18 at 04:30 Heparin Sodium (Porcine) (Heparin (1000 Units/ml)) 4,000 unit AFTER DIALYSIS CATHETER Last administered on 07/27/18at 20:16; Admin Dose 4,000 UNIT; Start 07/17/18 at 12:30 Diagnostic Test (Pha) (Accu-Chek) 1 ea 02 XX Last administered on 07/29/18at 02:23; Admin Dose 1 EA; Start 07/19/18 at 02:00 IV Flush (NS 3 ml) 3 ml PER PROTOCOL IV ; Start 07/20/18 at 11:30 Calcium/Vitamin D (Oyster Shell/ Vit-D (500/200)) 1 tab BID PO Last administered on 07/29/18 08:04; Admin Dose 1 TAB; Start 07/20/18 at 21:00 Metoprolol Tartrate (Lopressor) 5 mg Q4H PRN IV HR > 110; Hold if SBP < 100 Last administered on 07/21/18 01:52; Admin Dose 5 MG; Start 07/21/18 at 02:00 Hydromorphone HCl (Dilaudid) 1 mg Q4H PRN IV SEVERE PAIN LEVEL 7-10 Last administered on 07/23/18 21:37; Admin Dose 1 MG; Start 07/23/18 at 22:00 Metoclopramide HCl (Reglan) 10 mg Q6H PRN IV NAUSEA AND/OR VOMITING Last administered on 07/26/18 22:31; Admin Dose 10 MG; Start 07/23/18 at 20:30 Norepinephrine 250 ml @ 1.875 mls/ hr TITRATE IV Last administered on 07/29/18 01:20; Admin Dose 3.75 MLS/HR; Start 07/24/18 at 11:00 Collagenase (Santyl) 1 applic DAILY TOP Last administered on 07/29/18 08:04; Admin Dose 1 APPLIC; Start 07/25/18 at 09:00 Phenylephrine HCl 80 mg/Dextrose 250 ml @ 18.75 mls/ hr TITRATE IV Last administered on 07/29/18 05:29; Admin Dose 56.25 MLS/HR; Start 07/24/18 at 20:30 Insulin Aspart (Novolog Insulin Pen) NOVOLOG *MILD* ALGORI... Q4 SC Last administered on 07/29/18 08:03; Admin Dose 1 UNIT; Start 07/24/18 at 21:00 Propofol 100 ml @ 1.851 mls/ hr Q12H IV Last administered on 07/28/18 20:30; Admin Dose 5.553 MLS/HR; Start 07/25/18 at 13:00 Pantoprazole (Protonix Iv) 40 mg BID@06,18 IV Last administered on 07/29/18 05:30; Admin Dose 40 MG; Start 07/26/18 at 18:00 Insulin Glargine (Lantus) 10 units DAILY@0800 SC Last administered on 07/29/18at 08:02; Admin Dose 10 UNITS; Start 07/27/18 at 08:00 Fentanyl 100 ml @ 2.5 mls/hr TITRATE IV Last administered on 07/29/18at 05:29; Admin Dose 10 MLS/HR; Start 07/26/18 at 11:00 Metoclopramide HCl (Reglan) 5 mg Q6 IV Last administered on 07/29/18at 05:30; Admin Dose 5 MG; Start 07/27/18 at 18:00 Levothyroxine Sodium (Synthroid Iv) 50 mcg DAILY@06 IV Last administered on 07/29/18at 05:30; Admin Dose 50 MCG; Start 07/28/18 at 06:00 Vancomycin HCl (Vanco Iv Per Pharmacy) VANCOMYCIN PER PHARMACY PER PROTOCOL XX ; Start 07/28/18 at 10:30 Cefepime HCl 50 ml @ 100 mls/hr Q24H IVPB Last administered on 07/28/18at 12:13; Admin Dose 100 MLS/HR; Start 07/28/18 at 12:00 Midodrine (Proamatine) 5 mg TID@09,13,17 PO Last administered on 07/29/18at 08:04; Admin Dose 5 MG; Start 07/28/18 at 17:00 Hydrocortisone (Solu-Cortef) 50 mg DAILY IV ; Start 07/29/18 at 09:00 Magnesium Sulfate/ Dextrose 100 ml @ 100 mls/hr ONCE ONCE IVPB ; Start 07/29/18 at 09:00; Stop 07/29/18 at 09:59 Potassium Chloride 100 ml @ 50 mls/hr ONCE ONCE IVPB ; Start 07/29/18 at 09:00; Stop 07/29/18 at 10:59 PATRICIA ALLEN Jul 29, 2018 09:19
--- NOTE | 2018-07-29 10:26 | CONS ---
Assessment/Plan Assessment/Plan Hospital Course (Demo Recall) IMP: 1. Preoperative for LE ORIF-NL EF by echo with mod-sev TR. Lexiscan with NL EF and partially reversible inferior wall defect. Thus patient has no cardiac contraindication to proceeding to OR on current medications but at moderate to high risk. Now post-op s/p ORIF 2.Positive troponin 3.BRadycardia to 40's/stable BP. S Misael- now improved with decrease in dose of clonidine and having short runs of tachycardia/SVT. ? Now in AF s/p code yesterday 4.HTN-uncontrolled at this time 5.ankle fracture 6.ESRD on HD 7. TR-mod-sev 8. ? sick euthyroid-elevated TSH and Free t4 9. Patient with PEA and VFA this am requiring ACLS and intubation protocol on onset during HD 10. anemia-acute drop. ? where bleeding,internal given abd pain. Now s/p transfusion PRBC's/possible melena overnight 11.PAF- in AF at this time. Reasonable rates on amiodarone 12. Nstemi- downtrending cardiac enzymes Recc -ICU -Continue Jake/Levo with weaning as tolerated -continue vent support -Hold ASA/systemic anticoag for AF given anemia requiring transfusions -transfuse PRBC's as necessary -HD as tolearted only -trend cardiac enzymes which are now downtrending Consultation Date/Type/Reason Admit Date/Time Jul 13, 2018 at 21:32 Initial Consult Date 07/16/18 Type of Consult Cardiology Reason for Consultation Nstemi Requesting Provider: ADAM DUARTE MD Date/Time of Note DATE: 07/29/18 TIME: 10:22 Exam/Review of Systems Vital Signs Vitals Vital Signs Date Temp Pulse Resp B/P (MAP) Pulse Ox O2 O2 Flow FiO2 Time Delivery Rate 07/29/18 45 08:00 07/29/18 97.2 82 16 99/34 (55) 94 Mechanical 08:00 Ventilator Intake and Output 07/28/18 07/28/18 07/29/18 1515:00 23:00 07:00 IntakeIntake Total 661.9 ml 1038.710 ml 756.121 ml OutputOutput Total 19 ml 21 ml 10 ml BalanceBalance 642.9 ml 1017.710 ml 746.121 ml Exam Exam Review of Systems: CONSTITUTIONAL: No fevers, chills. PULMONARY: intubated CARDIOVASCULAR: No chest pain/palpitations GASTROINTESTINAL: No nausea/vomiting. GENITOURINARY: No hematuria/dysuria. MUSCULOSKELETAL: No myagias/arthalgias. PSYCHIATRIC: The patient denies depression. NEUROLOGIC: No weakness Constitutional: other (sedated) Psych: no complaints Head: normocephalic ENMT: mucosa pink and moist, intubated Neck: supple, jvd (9 cm water) Respiratory: diminished breath sounds (at bases/B) Cardiovascular: regular rate and rhythm Gastrointestinal: soft, non-tender Musculoskeletal: muscle tone (normal) Extremities: edema (none) Neurological: other (sedated) Labs Result Diagram: 07/29/18 0330 07/29/18 0330 Results 24hrs Laboratory Tests Test 07/28/18 18:08 07/28/18 20:32 07/28/18 23:56 07/29/18 03:30 Bedside Glucose 139 139 147 White Blood Count 14.6 #H Red Blood Count 2.71 L Hemoglobin 8.8 L Hematocrit 26.5 L Mean Corpuscular 97.8 Volume Mean Corpuscular 32.5 Hemoglobin Mean Corpuscular 33.2 Hemoglobin Concent Red Cell 19.2 H Distribution Width Platelet Count 103 L Mean Platelet Volume 12.9 H Immature 1.900 H Granulocytes % Neutrophils % Segmented 77 Neutrophils % (Manual) Band Neutrophils % 7 H (Manual) Lymphocytes % Lymphocytes % 11 L (Manual) Monocytes % Monocytes % (Manual) 3 Eosinophils % Eosinophils % 1 (Manual) Basophils % Myelocytes % 1 H (Manual) Nucleated Red Blood 2 H Cells % Immature 0.280 H Granulocytes # Neutrophils # Neutrophils # 11.4 H (Manual) Band Neutrophils # 1.0 H Lymphocytes (Manual) 1.6 Lymphocytes # Monocytes # Monocytes # (Manual) 0.4 Eosinophils # Basophils # Myelocytes # 0.1 H Nucleated Red Blood Cells # Platelet Estimate DECREASED Giant Platelets 4 H Polychromasia 3+ Poikilocytosis 3+ Anisocytosis 2+ Microcytosis 1+ Macrocytosis 1+ Sodium Level 132 L Potassium Level 3.4 L Chloride Level 94 L Carbon Dioxide Level 24 Anion Gap 14 H Blood Urea Nitrogen 20 Creatinine 2.16 H Est Glomerular Filtrat Rate mL/min Glucose Level 165 Lactic Acid Level 1.8 Calcium Level 7.1 L Phosphorus Level 3.0 Magnesium Level 1.6 L Test 07/29/18 05:55 07/29/18 07:46 Bedside Glucose 178 174 Medications Medications Current Medications Atorvastatin Calcium (Lipitor) 40 mg QHS PO Last administered on 07/28/18 20:30; Admin Dose 40 MG; Start 07/14/18 at 21:00 Multivit/Ca Carb/ B Cmplx/FA/Prenat (Shyann-Raj) 1 tab DAILY PO Last administered on 07/29/18at 08:04; Admin Dose 1 TAB; Start 07/14/18 at 09:00 Tramadol HCl (Ultram) 50 mg TID PRN PO PAIN LEVEL 6-10 Last administered on 07/24/18 03:35; Admin Dose 50 MG; Start 07/13/18 at 23:30 Acetaminophen (Tylenol Tab) 650 mg Q6H PRN PO MILD PAIN(1-3)OR ELEVATED TEMP; Start 07/13/18 at 23:30 Hydralazine HCl (Apresoline) 20 mg Q6H PRN IV sbp over 170 Last administered on 07/14/18at 11:56; Admin Dose 20 MG; Start 07/13/18 at 23:30 Miscellaneous Information 1 ea NOTE XX ; Start 07/13/18 at 23:30 Glucose (Glutose) 15 gm Q15M PRN PO DECREASED GLUCOSE; Start 07/13/18 at 23:30 Glucose (Glutose) 22.5 gm Q15M PRN PO DECREASED GLUCOSE; Start 07/13/18 at 23:30 Dextrose (D50w Syringe) 25 ml Q15M PRN IV DECREASED GLUCOSE Last administered on 07/24/18at 08:19; Admin Dose 25 ML; Start 07/13/18 at 23:30 Dextrose (D50w Syringe) 50 ml Q15M PRN IV DECREASED GLUCOSE; Start 07/13/18 at 23:30 Glucagon (Glucagen) 1 mg Q15M PRN IM DECREASED GLUCOSE; Start 07/13/18 at 23:30 Glucose (Glutose) 15 gm Q15M PRN BUCCAL DECREASED GLUCOSE; Start 07/13/18 at 23:30 Ondansetron HCl (Zofran Inj) 4 mg Q4H PRN IV NAUSEA AND/OR VOMITING Last administered on 07/23/18 16:30; Admin Dose 4 MG; Start 07/14/18 at 00:30 Miscellaneous Information (Pending Santyl Order For Wound Care) This patient easley... PRN PRN XX WOUND CARE; Start 07/14/18 at 04:30 Heparin Sodium (Porcine) (Heparin (1000 Units/ml)) 4,000 unit AFTER DIALYSIS CATHETER Last administered on 07/27/18 20:16; Admin Dose 4,000 UNIT; Start 07/17/18 at 12:30 Diagnostic Test (Pha) (Accu-Chek) 1 ea 02 XX Last administered on 07/29/18 02:23; Admin Dose 1 EA; Start 07/19/18 at 02:00 IV Flush (NS 3 ml) 3 ml PER PROTOCOL IV ; Start 07/20/18 at 11:30 Calcium/Vitamin D (Oyster Shell/ Vit-D (500/200)) 1 tab BID PO Last administered on 07/29/18 08:04; Admin Dose 1 TAB; Start 07/20/18 at 21:00 Metoprolol Tartrate (Lopressor) 5 mg Q4H PRN IV HR > 110; Hold if SBP < 100 Last administered on 07/21/18 01:52; Admin Dose 5 MG; Start 07/21/18 at 02:00 Hydromorphone HCl (Dilaudid) 1 mg Q4H PRN IV SEVERE PAIN LEVEL 7-10 Last administered on 07/23/18 21:37; Admin Dose 1 MG; Start 07/23/18 at 22:00 Metoclopramide HCl (Reglan) 10 mg Q6H PRN IV NAUSEA AND/OR VOMITING Last administered on 07/26/18 22:31; Admin Dose 10 MG; Start 07/23/18 at 20:30 Norepinephrine 250 ml @ 1.875 mls/ hr TITRATE IV Last administered on 07/29/18 01:20; Admin Dose 3.75 MLS/HR; Start 07/24/18 at 11:00 Collagenase (Santyl) 1 applic DAILY TOP Last administered on 07/29/18 08:04; Admin Dose 1 APPLIC; Start 07/25/18 at 09:00 Phenylephrine HCl 80 mg/Dextrose 250 ml @ 18.75 mls/ hr TITRATE IV Last administered on 07/29/18 05:29; Admin Dose 56.25 MLS/HR; Start 07/24/18 at 20:30 Insulin Aspart (Novolog Insulin Pen) NOVOLOG *MILD* ALGORI... Q4 SC Last administered on 07/29/18 08:03; Admin Dose 1 UNIT; Start 07/24/18 at 21:00 Propofol 100 ml @ 1.851 mls/ hr Q12H IV Last administered on 07/28/18 20:30; Admin Dose 5.553 MLS/HR; Start 07/25/18 at 13:00 Pantoprazole (Protonix Iv) 40 mg BID@06,18 IV Last administered on 07/29/18 05:30; Admin Dose 40 MG; Start 07/26/18 at 18:00 Insulin Glargine (Lantus) 10 units DAILY@0800 SC Last administered on 07/29/18 08:02; Admin Dose 10 UNITS; Start 07/27/18 at 08:00 Fentanyl 100 ml @ 2.5 mls/hr TITRATE IV Last administered on 07/29/18 05:29; Admin Dose 10 MLS/HR; Start 07/26/18 at 11:00 Metoclopramide HCl (Reglan) 5 mg Q6 IV Last administered on 07/29/18 05:30; Admin Dose 5 MG; Start 07/27/18 at 18:00 Levothyroxine Sodium (Synthroid Iv) 50 mcg DAILY@06 IV Last administered on 07/29/18at 05:30; Admin Dose 50 MCG; Start 07/28/18 at 06:00 Vancomycin HCl (Vanco Iv Per Pharmacy) VANCOMYCIN PER PHARMACY PER PROTOCOL XX ; Start 07/28/18 at 10:30 Cefepime HCl 50 ml @ 100 mls/hr Q24H IVPB Last administered on 07/28/18at 12:13; Admin Dose 100 MLS/HR; Start 07/28/18 at 12:00 Midodrine (Proamatine) 5 mg TID@,13,17 PO Last administered on 07/29/18at 08:04; Admin Dose 5 MG; Start 07/28/18 at 17:00 Hydrocortisone (Solu-Cortef) 50 mg DAILY IV ; Start 07/29/18 at 09:00 Potassium Chloride 100 ml @ 50 mls/hr ONCE ONCE IVPB ; Start 07/29/18 at 09:00; Stop 07/29/18 at 10:59 JUSTICE HARRISON Jul 29, 2018 10:26
--- NOTE | 2018-07-29 11:21 | CONS ---
Consult Date/Type/Reason Admit Date/Time Jul 13, 2018 at 21:32 Initial Consult Date Type of Consult Pulmonary Requesting Provider: ADAM DUARTE MD Date/Time of Note DATE: 07/29/18 TIME: 11:20 Subjective Patient remains on mechanical ventilation opens eyes but not consistently following commands. Chest CT demonstrates dense right lower lobe infiltrate wit h not enough effusion for thoracentesis. She has escalating vasopressor requirements. Objective Vital Signs Date Temp Pulse Resp B/P (MAP) Pulse Ox O2 O2 Flow FiO2 Time Delivery Rate 07/29/18 45 08:00 07/29/18 97.2 82 16 99/34 (55) 94 Mechanical 08:00 Ventilator Intake and Output 07/28/18 07/28/18 07/29/18 1515:00 23:00 07:00 IntakeIntake Total 661.9 ml 1038.710 ml 756.121 ml OutputOutput Total 19 ml 21 ml 10 ml BalanceBalance 642.9 ml 1017.710 ml 746.121 ml Exam PHYSICAL EXAMINATION: GENERAL: Chronically ill appearing lady on mechanical ventilation. VITAL SIGNS: Opens eyes attempting to communicate. NECK: Supple. No JVD or lymphadenopathy. CARDIAC: S1, S2, no added sounds or murmurs. CHEST: Diminished air entry bilaterally. ABDOMEN: Soft, nontender. No guarding or rebound. EXTREMITIES: No cyanosis, clubbing or edema. NEUROLOGIC: Unable to assess. Vent Setting Ventilator Support Mode: AC Fraction of Inspired Oxygen pe: 45 Positive End Expiratory Pressu: 5.0 Results/Medications Result Diagram: 07/29/18 0330 07/29/18 0330 Results 24 hrs Laboratory Tests Test 07/28/18 18:08 07/28/18 20:32 07/28/18 23:56 07/29/18 03:30 Bedside Glucose 139 139 147 White Blood Count 14.6 #H Red Blood Count 2.71 L Hemoglobin 8.8 L Hematocrit 26.5 L Mean Corpuscular 97.8 Volume Mean Corpuscular 32.5 Hemoglobin Mean Corpuscular 33.2 Hemoglobin Concent Red Cell 19.2 H Distribution Width Platelet Count 103 L Mean Platelet Volume 12.9 H Immature 1.900 H Granulocytes % Neutrophils % Segmented 77 Neutrophils % (Manual) Band Neutrophils % 7 H (Manual) Lymphocytes % Lymphocytes % 11 L (Manual) Monocytes % Monocytes % (Manual) 3 Eosinophils % Eosinophils % 1 (Manual) Basophils % Myelocytes % 1 H (Manual) Nucleated Red Blood 2 H Cells % Immature 0.280 H Granulocytes # Neutrophils # Neutrophils # 11.4 H (Manual) Band Neutrophils # 1.0 H Lymphocytes (Manual) 1.6 Lymphocytes # Monocytes # Monocytes # (Manual) 0.4 Eosinophils # Basophils # Myelocytes # 0.1 H Nucleated Red Blood Cells # Platelet Estimate DECREASED Giant Platelets 4 H Polychromasia 3+ Poikilocytosis 3+ Anisocytosis 2+ Microcytosis 1+ Macrocytosis 1+ Sodium Level 132 L Potassium Level 3.4 L Chloride Level 94 L Carbon Dioxide Level 24 Anion Gap 14 H Blood Urea Nitrogen 20 Creatinine 2.16 H Est Glomerular Filtrat Rate mL/min Glucose Level 165 Lactic Acid Level 1.8 Calcium Level 7.1 L Phosphorus Level 3.0 Magnesium Level 1.6 L Test 07/29/18 05:55 07/29/18 07:46 Bedside Glucose 178 174 Medications Current Medications Atorvastatin Calcium (Lipitor) 40 mg QHS PO Last administered on 07/28/18at 20:30; Admin Dose 40 MG; Start 07/14/18 at 21:00 Multivit/Ca Carb/ B Cmplx/FA/Prenat (Shyann-Raj) 1 tab DAILY PO Last administered on 07/29/18at 08:04; Admin Dose 1 TAB; Start 07/14/18 at 09:00 Tramadol HCl (Ultram) 50 mg TID PRN PO PAIN LEVEL 6-10 Last administered on 07/24/18at 03:35; Admin Dose 50 MG; Start 07/13/18 at 23:30 Acetaminophen (Tylenol Tab) 650 mg Q6H PRN PO MILD PAIN(1-3)OR ELEVATED TEMP; Start 07/13/18 at 23:30 Hydralazine HCl (Apresoline) 20 mg Q6H PRN IV sbp over 170 Last administered on 07/14/18at 11:56; Admin Dose 20 MG; Start 07/13/18 at 23:30 Miscellaneous Information 1 ea NOTE XX ; Start 07/13/18 at 23:30 Glucose (Glutose) 15 gm Q15M PRN PO DECREASED GLUCOSE; Start 07/13/18 at 23:30 Glucose (Glutose) 22.5 gm Q15M PRN PO DECREASED GLUCOSE; Start 07/13/18 at 23:30 Dextrose (D50w Syringe) 25 ml Q15M PRN IV DECREASED GLUCOSE Last administered on 07/24/18 08:19; Admin Dose 25 ML; Start 07/13/18 at 23:30 Dextrose (D50w Syringe) 50 ml Q15M PRN IV DECREASED GLUCOSE; Start 07/13/18 at 23:30 Glucagon (Glucagen) 1 mg Q15M PRN IM DECREASED GLUCOSE; Start 07/13/18 at 23:30 Glucose (Glutose) 15 gm Q15M PRN BUCCAL DECREASED GLUCOSE; Start 07/13/18 at 23:30 Ondansetron HCl (Zofran Inj) 4 mg Q4H PRN IV NAUSEA AND/OR VOMITING Last administered on 07/23/18 16:30; Admin Dose 4 MG; Start 07/14/18 at 00:30 Miscellaneous Information [facility] This patient easley... PRN PRN XX WOUND CARE; Start 07/14/18 at 04:30 Heparin Sodium (Porcine) (Heparin (1000 Units/ml)) 4,000 unit AFTER DIALYSIS CATHETER Last administered on 07/27/18 20:16; Admin Dose 4,000 UNIT; Start 07/17/18 at 12:30 Diagnostic Test (Pha) (Accu-Chek) 1 ea 02 XX Last administered on 07/29/18at 02:23; Admin Dose 1 EA; Start 07/19/18 at 02:00 IV Flush (NS 3 ml) 3 ml PER PROTOCOL IV ; Start 07/20/18 at 11:30 Calcium/Vitamin D (Oyster Shell/ Vit-D (500/200)) 1 tab BID PO Last administered on 07/29/18 08:04; Admin Dose 1 TAB; Start 07/20/18 at 21:00 Metoprolol Tartrate (Lopressor) 5 mg Q4H PRN IV HR > 110; Hold if SBP < 100 Last administered on 07/21/18at 01:52; Admin Dose 5 MG; Start 07/21/18 at 02:00 Hydromorphone HCl (Dilaudid) 1 mg Q4H PRN IV SEVERE PAIN LEVEL 7-10 Last administered on 07/23/18at 21:37; Admin Dose 1 MG; Start 07/23/18 at 22:00 Metoclopramide HCl (Reglan) 10 mg Q6H PRN IV NAUSEA AND/OR VOMITING Last adm inistered on 07/26/18 22:31; Admin Dose 10 MG; Start 07/23/18 at 20:30 Norepinephrine 250 ml @ 1.875 mls/ hr TITRATE IV Last administered on 07/29/18 01:20; Admin Dose 3.75 MLS/HR; Start 07/24/18 at 11:00 Collagenase (Santyl) 1 applic DAILY TOP Last administered on 07/29/18 08:04; Admin Dose 1 APPLIC; Start 07/25/18 at 09:00 Phenylephrine HCl 80 mg/Dextrose 250 ml @ 18.75 mls/ hr TITRATE IV Last administered on 07/29/18 05:29; Admin Dose 56.25 MLS/HR; Start 07/24/18 at 20:30 Insulin Aspart (Novolog Insulin Pen) NOVOLOG *MILD* ALGORI... Q4 SC Last administered on 07/29/18 08:03; Admin Dose 1 UNIT; Start 07/24/18 at 21:00 Propofol 100 ml @ 1.851 mls/ hr Q12H IV Last administered on 07/28/18 20:30; Admin Dose 5.553 MLS/HR; Start 07/25/18 at 13:00 Pantoprazole (Protonix Iv) 40 mg BID@06,18 IV Last administered on 07/29/18 05:30; Admin Dose 40 MG; Start 07/26/18 at 18:00 Insulin Glargine (Lantus) 10 units DAILY@0800 SC Last administered on 07/29/18 08:02; Admin Dose 10 UNITS; Start 07/27/18 at 08:00 Fentanyl 100 ml @ 2.5 mls/hr TITRATE IV Last administered on 07/29/18 05:29; Admin Dose 10 MLS/HR; Start 07/26/18 at 11:00 Metoclopramide HCl (Reglan) 5 mg Q6 IV Last administered on 07/29/18 05:30; Admin Dose 5 MG; Start 07/27/18 at 18:00 Levothyroxine Sodium (Synthroid Iv) 50 mcg DAILY@06 IV Last administered on 07/29/18 05:30; Admin Dose 50 MCG; Start 07/28/18 at 06:00 Vancomycin HCl (Vanco Iv Per Pharmacy) VANCOMYCIN PER PHARMACY PER PROTOCOL XX ; Start 07/28/18 at 10:30 Cefepime HCl 50 ml @ 100 mls/hr Q24H IVPB Last administered on 07/28/18at 12:13; Admin Dose 100 MLS/HR; Start 07/28/18 at 12:00 Midodrine (Proamatine) 5 mg TID@09,13,17 PO Last administered on 07/29/18at 08:04; Admin Dose 5 MG; Start 07/28/18 at 17:00 Hydrocortisone (Solu-Cortef) 50 mg DAILY IV ; Start 07/29/18 at 09:00 Assessment/Plan Hospital Course (Demo Recall) IMPRESSION 1. Cardiopulmonary arrest. Prolonged CPR with ACLS protocol. 2. Multiple cardiopulmonary arrests and prolonged hypotension, despite this patient seems to be somewhat neurologically intact. 3. End-stage renal failure on hemodialysis. 4. Possible aspiration pneumonia. Septic shock. Requiring vasopressor support, increasing pressor requirements 5. History of severe peripheral vascular disease. 6. Possible acute GI bleed given acute drop in hemoglobin prior to cardiac arrest Plan 1. Vasopressor support as needed. 2. Mechanical ventilation currently not stable for CPAP trials. 3. Broad-spectrum antibiotic coverage for possible aspiration. 4. GI recommendations 5. DVT and GI prophylaxis. Critical care time 40 minutes. Prognosis guarded. Family conference regarding goals of care. Very poor prognosis. DEVAN MIDDLETON MD, [facility] Jul 29, 2018 11:21
[2018-07-29] MEDS: HYDROCORTISONE 100 MG INJ IV SCH (11:28)
[2018-07-29] MEDS: PROPOFOL 100 ML IV SCH ×2 (13:00→23:44)
[2018-07-29] MEDS: CEFEPIME 2GM/50 ML (PMX) 50 ML IVPB SCH (13:18)
--- NOTE | 2018-07-29 15:37 | QN ---
Documentation Comment spoke to family at bedside, son jignesh, two daughters with help of disaster recovery analyst Pts family wishes chemical code only, no chest compressions and no shocks. ADAM DUARTE MD Jul 29, 2018 15:37
--- NOTE | 2018-07-29 17:14 | RADRPT ---
Report amended on 2018-07-29 at 5:20 PM: Added/Modified: Left Ventricle: [ADDED] Lower limits of normal function: Lower limits of normal systolic function. [MODIFIED] Ejection fraction is visually estimated at : 50-55 % [MODIFIED] Ejection fraction is visually estimated at : 50-55 % Conclusions: [MODIFIED TEXT] Left Ventricular Findings: Normal left ventricular cavity size. Normal left ventricular wall thickness. Ejection fraction is visually estimated at 50-55 %. Tissue Doppler/Mitral Doppler indices are consistent with pseudonormalization with mildly elevated left atrial pressure (Stage II diastolic dysfunction). Deleted: Left Ventricle: [REMOVED] Normal function: Normal left ventricular systolic function. Electronically Signed by: Eloy Villanueva 2018-07-29 17:20:14 PST
[2018-07-29] MEDS: ATORVASTATIN 40 MG TAB PO SCH (21:08)
[2018-07-30] VITALS (106 sets, daily range): BP systolic 80–135; BP diastolic 26–92; PULSE 59–101; RESP 11–30
[2018-07-30] MEDS: PHENYLephrine 80 MG in DEXTROSE 5% 242 ML IV SCH ×5 (00:18→23:14)
[2018-07-30] MEDS: INSULIN ASPART [NOVOLOG] 3 ML PEN SC SCH ×6 (00:47→21:34)
[2018-07-30] MEDS: ACCU-CHEK XX SCH (01:10)
[2018-07-30] MEDS: METOCLOPRAMIDE 10 MG INJ IV SCH ×3 (05:14→18:00)
[2018-07-30] MEDS: LEVOTHYROXINE 100 MCG VIAL IV SCH (05:14)
[2018-07-30] MEDS: PANTOPRAZOLE 40 MG INJ IV SCH (05:14)
[2018-07-30] MEDS: FENTAnyl (DRIP) 1000 mcg/100mL 100 ML IV SCH (06:29)
[2018-07-30] MEDS ORDERED: VANCOMYCIN 1 GM 250 ML IVPB SCH (08:00)
--- NOTE | 2018-07-30 09:07 | CONS ---
Consult Date/Type/Reason Admit Date/Time Jul 13, 2018 at 21:32 Initial Consult Date Requesting Provider: ADAM DUARTE MD Date/Time of Note DATE: 07/30/18 TIME: 09:04 Subjective NO acute events - pt very debilitated - per family code status changed to DNR - con't supportive rX now. ROS: No fever, no chills, no nausea, no vomiting, no diarrhea/constipation + SOB per nurse - pt non-verbal Objective Vitals Vital Signs Date Temp Pulse Resp B/P (MAP) Pulse Ox O2 O2 Flow FiO2 Time Delivery Rate 07/30/18 76 08:00 07/30/18 17 111/34 98 06:45 (59) 07/30/18 Mechanical 06:00 Ventilator 07/30/18 60 05:00 07/30/18 98.4 04:00 Intake and Output 07/29/18 07/29/18 07/30/18 1515:00 23:00 07:00 IntakeIntake Total 691.053 ml 704.75 ml 548.50 ml OutputOutput Total 0 ml 10 ml 0 ml BalanceBalance 691.053 ml 694.75 ml 548.50 ml Exam General: WN/WD/NAD, AOx 0 HEENT: Unicetric/atraumatic/EOMI (does not follow commands) NECK: JVD elevated, no thyromegaly - intubated Lymph: no lymphadenopathy HEART: regular with no S3, II/ systolic murmur at apex, PMI LUNGS: Coarse sounds ABD: soft, NT, ND, +BS : Intact Neuro: non focal SKIN: chronic changes EXT: trace edema Results/Medications Result Diagram: 07/30/1844907/30/18 0450 Results 24 hrs Laboratory Tests Test 07/29/18 10:45 07/29/18 13:43 07/29/18 17:15 07/29/18 21:12 Creatine Kinase 64 Creatine Kinase 2.3 Index Creatinine Kinase MB 1.49 (Mass) Troponin I 1.830 *H Bedside Glucose 145 104 96 Test 07/29/18 23:53 07/30/18 04:30 07/30/18 04:50 07/30/18 05:18 Bedside Glucose 139 167 Ammonia < 9 L White Blood Count 22.2 #H Red Blood Count 2.84 L Hemoglobin 9.1 L Hematocrit 27.2 L Mean Corpuscular 95.8 Volume Mean Corpuscular 32.0 Hemoglobin Mean Corpuscular 33.5 Hemoglobin Concent Red Cell 19.3 H Distribution Width Platelet Count 92 L Mean Platelet Volume 13.0 H Immature 0.700 H Granulocytes % Neutrophils % Lymphocytes % Monocytes % Eosinophils % Basophils % Nucleated Red Blood 0.4 H Cells % Immature 0.160 H Granulocytes # Neutrophils # Lymphocytes # Monocytes # Eosinophils # Basophils # Nucleated Red Blood Cells # Absolute 0.105 Reticulocyte Count Percent Reticulocyte 3.8 H Count Sodium Level 127 L Potassium Level 4.1 Chloride Level 91 L Carbon Dioxide Level 21 Anion Gap 15 H Blood Urea Nitrogen 27 H Creatinine 2.55 H Est Glomerular Filtrat Rate mL/min Glucose Level 180 Calcium Level 7.3 L Iron Level 27 L Total Iron Binding 61 L Capacity Percent Iron 44 Saturation Total Bilirubin 0.2 Direct Bilirubin 0.00 Indirect Bilirubin 0.2 Aspartate Amino 52 H Transf (AST/SGOT) Alanine 16 Aminotransferase (AL T/SGPT) Alkaline Phosphatase 270 H Total Protein 4.7 L Albumin 1.7 L Random Vancomycin < 5.0 Level Test 07/30/18 08:54 Bedside Glucose 225 H Home Meds Reported Medications Atorvastatin* (Atorvastatin*) 40 Mg Tablet, 40 MG PO QHS, #30 TAB 07/13/18 Carvedilol* (Carvedilol*) 3.125 Mg Tablet, 3.125 MG PO BID, #60 TAB 07/13/18 Tramadol HCl (Tramadol HCl) 50 Mg Tablet, 50 MG PO TID PRN for PAIN LEVEL 6-10, #90 TAB 07/13/18 Multivit/Ca Carb/B Cmplx/Fa* (Shyann-Raj*) 1 Tab Tab, 1 TAB PO DAILY, TAB 07/13/18 Isosorbide Mononitrate* (Isosorbide Mononitrate*) 60 Mg Tab.er.24h, 60 MG PO DAILY, TAB 07/13/18 Pantoprazole* (Protonix*) 20 Mg Tablet.dr, 20 MG PO DAILY, TAB 07/13/18 Clonidine Hcl* (Clonidine Hcl*) 0.1 Mg Tab, 0.1 MG PO BID, TAB 07/13/18 Aspirin (Aspir-Low) 81 Mg Tablet.dr, 81 MG PO DAILY 07/13/18 Medications Current Medications Atorvastatin Calcium (Lipitor) 40 mg QHS PO Last administered on 07/29/18 21:08; Admin Dose 40 MG; Start 07/14/18 at 21:00 Multivit/Ca Carb/ B Cmplx/FA/Prenat (Shyann-Raj) 1 tab DAILY PO Last administered on 07/29/18 08:04; Admin Dose 1 TAB; Start 07/14/18 at 09:00 Tramadol HCl (Ultram) 50 mg TID PRN PO PAIN LEVEL 6-10 Last administered on 07/24/18at 03:35; Admin Dose 50 MG; Start 07/13/18 at 23:30 Acetaminophen (Tylenol Tab) 650 mg Q6H PRN PO MILD PAIN(1-3)OR ELEVATED TEMP; Start 07/13/18 at 23:30 Hydralazine HCl (Apresoline) 20 mg Q6H PRN IV sbp over 170 Last administered on 07/14/18at 11:56; Admin Dose 20 MG; Start 07/13/18 at 23:30 Miscellaneous Information 1 ea NOTE XX ; Start 07/13/18 at 23:30 Glucose (Glutose) 15 gm Q15M PRN PO DECREASED GLUCOSE; Start 07/13/18 at 23:30 Glucose (Glutose) 22.5 gm Q15M PRN PO DECREASED GLUCOSE; Start 07/13/18 at 23:30 Dextrose (D50w Syringe) 25 ml Q15M PRN IV DECREASED GLUCOSE Last administered on 07/24/18at 08:19; Admin Dose 25 ML; Start 07/13/18 at 23:30 Dextrose (D50w Syringe) 50 ml Q15M PRN IV DECREASED GLUCOSE; Start 07/13/18 at 23:30 Glucagon (Glucagen) 1 mg Q15M PRN IM DECREASED GLUCOSE; Start 07/13/18 at 23:30 Glucose (Glutose) 15 gm Q15M PRN BUCCAL DECREASED GLUCOSE; Start 07/13/18 at 23:30 Ondansetron HCl (Zofran Inj) 4 mg Q4H PRN IV NAUSEA AND/OR VOMITING Last administered on 07/23/18at 16:30; Admin Dose 4 MG; Start 07/14/18 at 00:30 Miscellaneous Information (Pending [facility] Order For Wound Care) This patient easley... PRN PRN XX WOUND CARE; Start 07/14/18 at 04:30 Heparin Sodium (Porcine) (Heparin (1000 Units/ml)) 4,000 unit AFTER DIALYSIS CATHETER Last administered on 07/27/18 20:16; Admin Dose 4,000 UNIT; Start 07/17/18 at 12:30 Diagnostic Test (Pha) (Accu-Chek) 1 ea 02 XX Last administered on 07/30/18 01:10; Admin Dose 1 EA; Start 07/19/18 at 02:00 IV Flush (NS 3 ml) 3 ml PER PROTOCOL IV ; Start 07/20/18 at 11:30 Calcium/Vitamin D (Oyster Shell/ Vit-D (500/200)) 1 tab BID PO Last admin istered on 07/29/18 21:08; Admin Dose 1 TAB; Start 07/20/18 at 21:00 Metoprolol Tartrate (Lopressor) 5 mg Q4H PRN IV HR > 110; Hold if SBP < 100 Last administered on 07/21/18 01:52; Admin Dose 5 MG; Start 07/21/18 at 02:00 Hydromorphone HCl (Dilaudid) 1 mg Q4H PRN IV SEVERE PAIN LEVEL 7-10 Last a dministered on 07/23/18 21:37; Admin Dose 1 MG; Start 07/23/18 at 22:00 Metoclopramide HCl (Reglan) 10 mg Q6H PRN IV NAUSEA AND/OR VOMITING Last administered on 07/26/18 22:31; Admin Dose 10 MG; Start 07/23/18 at 20:30 Norepinephrine 250 ml @ 1.875 mls/ hr TITRATE IV Last administered on 9at 01:20; Admin Dose 3.75 MLS/HR; Start 07/24/18 at 11:00 Collagenase (Santyl) 1 applic DAILY TOP Last administered on 07/29/18 08:04; Admin Dose 1 APPLIC; Start 07/25/18 at 09:00 Phenylephrine HCl 80 mg/Dextrose 250 ml @ 18.75 mls/ hr TITRATE IV Last administered on 07/30/18 04:28; Admin Dose 56.25 MLS/HR; Start 07/24/18 at 20:30 Insulin Aspart (Novolog Insulin Pen) NOVOLOG *MILD* ALGORI... Q4 SC Last administered on 07/30/18 05:19; Admin Dose 167 UNIT; Start 07/24/18 at 21:00 Propofol 100 ml @ 1.851 mls/ hr Q12H IV Last administered on 07/28/18 20:30; Admin Dose 5.553 MLS/HR; Start 07/25/18 at 13:00 Pantoprazole (Protonix Iv) 40 mg BID@06,18 IV Last administered on 07/30/18 05 :14; Admin Dose 40 MG; Start 07/26/18 at 18:00 Insulin Glargine (Lantus) 10 units DAILY@0800 SC Last administered on 07/29/18 08:02; Admin Dose 10 UNITS; Start 07/27/18 at 08:00 Fentanyl 100 ml @ 2.5 mls/hr TITRATE IV Last administered on 07/30/18 06:29; Admin Dose 10 MLS/HR; Start 07/26/18 at 11:00 Metoclopramide HCl (Reglan) 5 mg Q6 IV Last administered on 07/30/18 05:14; Admin Dose 5 MG; Start 07/27/18 at 18:00 Levothyroxine Sodium (Synthroid Iv) 50 mcg DAILY@06 IV Last administered on 07/30/18 05:14; Admin Dose 50 MCG; Start 07/28/18 at 06:00 Vancomycin HCl (Vanco Iv Per Pharmacy) VANCOMYCIN PER PHARMACY PER PROTOCOL XX ; Start 07/28/18 at 10:30 Midodrine (Proamatine) 5 mg TID@09,13,17 PO Last administered on 07/29/18at 17:17; Admin Dose 5 MG; Start 07/28/18 at 17:00 Hydrocortisone (Solu-Cortef) 50 mg DAILY IV Last administered on 07/29/18at 11:28; Admin Dose 50 MG; Start 07/29/18 at 09:00 Cefepime HCl 50 ml @ 100 mls/hr Q24H IVPB ; Start 07/30/18 at 12:00 Vancomycin HCl 250 ml @ 125 mls/hr ONCE IVPB ; Start 07/30/18 at 08:00; Stop 07/30/18 at 09:59 Assessment/Plan Hospital Course (Demo Recall) 1. Cardiac arrhythmia concerning for possible atrial fibrillation but on review of screen likely more consistent with sinus rhythm with frequent premature atrial contractions, possible very short run of paroxysmal atrial fibrillation. We will follow. Pt had a short episode of a. fib - bach to sinus now. Did not convert with amio - will stop now. Rate controlled. NO interventions planned. 2. Abnormal electrocardiogram, assess for acute coronary syndrome - r/o Mi. 3. Hypertension, uncontrolled - con't to adjust Rx and HD. BP stable. 4. History of open heart surgery - no CP now. 5. End-stage renal disease on hemodialysis- done day prior - BP low now. 6. Shortness of breath - intubated now. 7. Congestive heart failure by x-ray, question systolic versus diastolic, likely acute on chronic given presentation. Con't to remove fluid as tolerated. Now intubated. Remove fluid with HD. Con't to keep euvolemic. 8. Diabetes mellitus- on meds, keep euglycemic. 9. Anemia.- h/o bleeding. 10. Hypotension - restart levo gtt. Con''t to maintain BP. AMY GRIDER MD Jul 30, 2018 09:07
[2018-07-30] MEDS: HYDROCORTISONE 100 MG INJ IV SCH (09:10)
--- NOTE | 2018-07-30 09:10 | CONS ---
Assessment/Plan Assessment/Plan Hospital Course (Demo Recall) 78 yo female presented in cardiac arrest with prolonged ACLS Interval hx: WBC up to 22. HH 9.1/27.2 which is higher than yesterday. Retic 3.8. Iron and TIBC low. Ferritin, B12, and Folate pending. Alk phos has gone up to 270 and AST which was wnl has gone up to 52. BM yesterday. Occult blood not collected yet. She is off fentanyl, sedation, and levophed. She is on phenylephrine gtt. Pt is not tracking or responding to commands. She moves her left arm to noxious stimuli, although RN states she does move left arm independently. Pt still unstable. Needs HD. Tolerating tube feeds. Last bm yesterday morning. 1. Anemia, rule out gastrointestinal bleeding. -concern for GI bleed due to drop in H/H prior to cardiac arrest. -per RN bm was brown with potentially old melena, no active bleeding 2. Status post pulseless electrical activity period and cardiac arrest. 3. Ventilator-dependent respiratory failure. 4. End-stage renal disease, on dialysis. 5. 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 6. Left stump bruises. 7. Ankle fracture. 8. Cirrhosis of liver 9. Gastroparesis Plan Family spoke with Dr. Duarte, chemical code only. Monitor HH and replace as necessary. Anemia work up, FOB pending. Iron and TIBC low, ferritin folate b 12 pending Continue present care Continue tube feeds as tolerated Aspiration precautions Patient is unstable for any endoscopy procedures and there is no active GI bleeding at this point Continue on lactulose and Reglan and PPI BID. Pt examined and plan of care discussed with Dr. Hoskins Consultation Date/Type/Reason Admit Date/Time Jul 13, 2018 at 21:32 Initial Consult Date Requesting Provider: ADAM DUARTE MD Date/Time of Note DATE: 07/30/18 TIME: 09:06 Exam/Review of Systems Exam Vitals Vital Signs Date Temp Pulse Resp B/P (MAP) Pulse Ox O2 O2 Flow FiO2 Time Delivery Rate 07/30/18 76 08:00 07/30/18 17 111/34 98 06:45 (59) 07/30/18 Mechanical 06:00 Ventilator 07/30/18 60 05:00 07/30/18 98.4 04:00 Intake and Output 07/29/18 07/29/18 07/30/18 1515:00 23:00 07:00 IntakeIntake Total 691.053 ml 704.75 ml 548.50 ml OutputOutput Total 0 ml 10 ml 0 ml BalanceBalance 691.053 ml 694.75 ml 548.50 ml Results Result Diagram: 07/30/18 0450 07/30/18 0450 Results 24hrs Laboratory Tests Test 07/29/18 10:45 07/29/18 13:43 07/29/18 17:15 07/29/18 21:12 Creatine Kinase 64 Creatine Kinase 2.3 Index Creatinine Kinase MB 1.49 (Mass) Troponin I 1.830 *H Bedside Glucose 145 104 96 Test 07/29/18 23:53 07/30/18 04:30 07/30/18 04:50 07/30/18 05:18 Bedside Glucose 139 167 Ammonia < 9 L White Blood Count 22.2 #H Red Blood Count 2.84 L Hemoglobin 9.1 L Hematocrit 27.2 L Mean Corpuscular 95.8 Volume Mean Corpuscular 32.0 Hemoglobin Mean Corpuscular 33.5 Hemoglobin Concent Red Cell 19.3 H Distribution Width Platelet Count 92 L Mean Platelet Volume 13.0 H Immature 0.700 H Granulocytes % Neutrophils % Lymphocytes % Monocytes % Eosinophils % Basophils % Nucleated Red Blood 0.4 H Cells % Immature 0.160 H Granulocytes # Neutrophils # Lymphocytes # Monocytes # Eosinophils # Basophils # Nucleated Red Blood Cells # Absolute 0.105 Reticulocyte Count Percent Reticulocyte 3.8 H Count Sodium Level 127 L Potassium Level 4.1 Chloride Level 91 L Carbon Dioxide Level 21 Anion Gap 15 H Blood Urea Nitrogen 27 H Creatinine 2.55 H Est Glomerular Filtrat Rate mL/min Glucose Level 180 Calcium Level 7.3 L Iron Level 27 L Total Iron Binding 61 L Capacity Percent Iron 44 Saturation Total Bilirubin 0.2 Direct Bilirubin 0.00 Indirect Bilirubin 0.2 Aspartate Amino 52 H Transf (AST/SGOT) Alanine 16 Aminotransferase (AL T/SGPT) Alkaline Phosphatase 270 H Total Protein 4.7 L Albumin 1.7 L Random Vancomycin < 5.0 Level Test 07/30/18 08:54 Bedside Glucose 225 H Medications Medication Current Medications Atorvastatin Calcium (Lipitor) 40 mg QHS PO Last administered on 07/29/18at 21:08; Admin Dose 40 MG; Start 07/14/18 at 21:00 Multivit/Ca Carb/ B Cmplx/FA/Prenat (Shyann-Raj) 1 tab DAILY PO Last administered on 07/29/18at 08:04; Admin Dose 1 TAB; Start 07/14/18 at 09:00 Tramadol HCl (Ultram) 50 mg TID PRN PO PAIN LEVEL 6-10 Last administered on 07/24/18at 03:35; Admin Dose 50 MG; Start 07/13/18 at 23:30 Acetaminophen (Tylenol Tab) 650 mg Q6H PRN PO MILD PAIN(1-3)OR ELEVATED TEMP; Start 07/13/18 at 23:30 Hydralazine HCl (Apresoline) 20 mg Q6H PRN IV sbp over 170 Last administered on 07/14/18at 11:56; Admin Dose 20 MG; Start 07/13/18 at 23:30 Miscellaneous Information 1 ea NOTE XX ; Start 07/13/18 at 23:30 Glucose (Glutose) 15 gm Q15M PRN PO DECREASED GLUCOSE; Start 07/13/18 at 23:30 Glucose (Glutose) 22.5 gm Q15M PRN PO DECREASED GLUCOSE; Start 07/13/18 at 23:30 Dextrose (D50w Syringe) 25 ml Q15M PRN IV DECREASED GLUCOSE Last administered on 07/24/18at 08:19; Admin Dose 25 ML; Start 07/13/18 at 23:30 Dextrose (D50w Syringe) 50 ml Q15M PRN IV DECREASED GLUCOSE; Start 07/13/18 at 23:30 Glucagon (Glucagen) 1 mg Q15M PRN IM DECREASED GLUCOSE; Start 07/13/18 at 23:30 Glucose (Glutose) 15 gm Q15M PRN BUCCAL DECREASED GLUCOSE; Start 07/13/18 at 23:30 Ondansetron HCl (Zofran Inj) 4 mg Q4H PRN IV NAUSEA AND/OR VOMITING Last administered on 07/23/18at 16:30; Admin Dose 4 MG; Start 07/14/18 at 00:30 Miscellaneous Information (Pending Santyl Order For Wound Care) This patient easley... PRN PRN XX WOUND CARE; Start 07/14/18 at 04:30 Heparin Sodium (Porcine) (Heparin (1000 Units/ml)) 4,000 unit AFTER DIALYSIS CATHETER Last administered on 07/27/18 20:16; Admin Dose 4,000 UNIT; Start 07/17/18 at 12:30 Diagnostic Test (Pha) (Accu-Chek) 1 ea 02 XX Last administered on 07/30/18 01:10; Admin Dose 1 EA; Start 07/19/18 at 02:00 IV Flush (NS 3 ml) 3 ml PER PROTOCOL IV ; Start 07/20/18 at 11:30 Calcium/Vitamin D (Oyster Shell/ Vit-D (500/200)) 1 tab BID PO Last adminis tered on 07/29/18 21:08; Admin Dose 1 TAB; Start 07/20/18 at 21:00 Metoprolol Tartrate (Lopressor) 5 mg Q4H PRN IV HR > 110; Hold if SBP < 100 Last administered on 07/21/18 01:52; Admin Dose 5 MG; Start 07/21/18 at 02:00 Hydromorphone HCl (Dilaudid) 1 mg Q4H PRN IV SEVERE PAIN LEVEL 7-10 Last adm inistered on 07/23/18 21:37; Admin Dose 1 MG; Start 07/23/18 at 22:00 Metoclopramide HCl (Reglan) 10 mg Q6H PRN IV NAUSEA AND/OR VOMITING Last administered on 07/26/18 22:31; Admin Dose 10 MG; Start 07/23/18 at 20:30 Norepinephrine 250 ml @ 1.875 mls/ hr TITRATE IV Last administered on 07/29/18 t 01:20; Admin Dose 3.75 MLS/HR; Start 07/24/18 at 11:00 Collagenase (Santyl) 1 applic DAILY TOP Last administered on 07/29/18 08:04; Admin Dose 1 APPLIC; Start 07/25/18 at 09:00 Phenylephrine HCl 80 mg/Dextrose 250 ml @ 18.75 mls/ hr TITRATE IV Last administered on 07/30/18 04:28; Admin Dose 56.25 MLS/HR; Start 07/24/18 at 20:30 Insulin Aspart (Novolog Insulin Pen) NOVOLOG *MILD* ALGORI... Q4 SC Last administered on 07/30/18 05:19; Admin Dose 167 UNIT; Start 07/24/18 at 21:00 Propofol 100 ml @ 1.851 mls/ hr Q12H IV Last administered on 07/28/18at 20:30; Admin Dose 5.553 MLS/HR; Start 07/25/18 at 13:00 Pantoprazole (Protonix Iv) 40 mg BID@06,18 IV Last administered on 07/30/18at 05:14; Admin Dose 40 MG; Start 07/26/18 at 18:00 Insulin Glargine (Lantus) 10 units DAILY@0800 SC Last administered on 07/29/18at 08:02; Admin Dose 10 UNITS; Start 07/27/18 at 08:00 Fentanyl 100 ml @ 2.5 mls/hr TITRATE IV Last administered on 07/30/18 06:29; Admin Dose 10 MLS/HR; Start 07/26/18 at 11:00 Metoclopramide HCl (Reglan) 5 mg Q6 IV Last administered on 07/30/18at 05:14; Admin Dose 5 MG; Start 07/27/18 at 18:00 Levothyroxine Sodium (Synthroid Iv) 50 mcg DAILY@06 IV Last administered on 07/30/18 05:14; Admin Dose 50 MCG; Start 07/28/18 at 06:00 Vancomycin HCl (Vanco Iv Per Pharmacy) VANCOMYCIN PER PHARMACY PER PROTOCOL XX ; Start 07/28/18 at 10:30 Midodrine (Proamatine) 5 mg TID@09,13,17 PO Last administered on 07/29/18at 17:17; Admin Dose 5 MG; Start 07/28/18 at 17:00 Hydrocortisone (Solu-Cortef) 50 mg DAILY IV Last administered on 07/29/18at 11:28; Admin Dose 50 MG; Start 07/29/18 at 09:00 Cefepime HCl 50 ml @ 100 mls/hr Q24H IVPB ; Start 07/30/18 at 12:00 Vancomycin HCl 250 ml @ 125 mls/hr ONCE IVPB ; Start 07/30/18 at 08:00; Stop 07/30/18 at 09:59 PATRICIA ALLEN Jul 30, 2018 09:10
[2018-07-30] MEDS: CALCIUM/VITAMIN D (500/200) TAB PO SCH ×2 (09:11→21:28)
[2018-07-30] MEDS: MULTIVIT/CA CARB/B CMPLX/FA TAB PO SCH (09:11)
[2018-07-30] MEDS: MIDODRINE 5 MG TAB PO SCH ×3 (09:11→17:00)
[2018-07-30] MEDS: INSULIN GLARGINE [LANTus] (100 UNITS/ML) SYG SC SCH (09:13)
[2018-07-30] MEDS: BALSAM PERU/CASTOR OIL 60 GM TUBE TOP SCH ×2 (09:14→21:28)
[2018-07-30] MEDS: COLLAGENASE 5 GM (UD JAR) TOP SCH (09:14)
--- NOTE | 2018-07-30 10:32 | CONS ---
Consult Date/Type/Reason Admit Date/Time Jul 13, 2018 at 21:32 Initial Consult Date Type of Consult Pulmonary Requesting Provider: ADAM DUARTE MD Date/Time of Note DATE: 07/30/18 TIME: 10:31 Subjective Remains somnolent on mechanical ventilation. Objective Vital Signs Date Temp Pulse Resp B/P (MAP) Pulse Ox O2 O2 Flow FiO2 Time Delivery Rate 07/30/18 76 08:00 07/30/18 17 111/34 98 06:45 (59) 07/30/18 Mechanical 06:00 Ventilator 07/30/18 60 05:00 07/30/18 98.4 04:00 Intake and Output 07/29/18 07/29/18 07/30/18 1515:00 23:00 07:00 IntakeIntake Total 691.053 ml 704.75 ml 548.50 ml OutputOutput Total 0 ml 10 ml 0 ml BalanceBalance 691.053 ml 694.75 ml 548.50 ml Exam PHYSICAL EXAMINATION: GENERAL: Chronically ill appearing lady on mechanical ventilation. VITAL SIGNS: Opens eyes attempting to communicate. NECK: Supple. No JVD or lymphadenopathy. CARDIAC: S1, S2, no added sounds or murmurs. CHEST: Diminished air entry bilaterally. ABDOMEN: Soft, nontender. No guarding or rebound. EXTREMITIES: No cyanosis, clubbing or edema. NEUROLOGIC: Unable to assess. Vent Setting Ventilator Support Mode: AC Fraction of Inspired Oxygen pe: 60 Positive End Expiratory Pressu: 5.0 Results/Medications Result Diagram: 07/30/18 0450 07/30/18 0450 Results 24 hrs Laboratory Tests Test 07/29/18 10:45 07/29/18 13:43 07/29/18 17:15 07/29/18 21:12 Creatine Kinase 64 Creatine Kinase 2.3 Index Creatinine Kinase MB 1.49 (Mass) Troponin I 1.830 *H Bedside Glucose 145 104 96 Test 07/29/18 23:53 07/30/18 04:30 07/30/18 04:50 07/30/18 05:18 Bedside Glucose 139 167 Ammonia < 9 L White Blood Count 22.2 #H Red Blood Count 2.84 L Hemoglobin 9.1 L Hematocrit 27.2 L Mean Corpuscular 95.8 Volume Mean Corpuscular 32.0 Hemoglobin Mean Corpuscular 33.5 Hemoglobin Concent Red Cell 19.3 H Distribution Width Platelet Count 92 L Mean Platelet Volume 13.0 H Immature 0.700 H Granulocytes % Neutrophils % Segmented 59 Neutrophils % (Manual) Band Neutrophils % 35 H (Manual) Lymphocytes % Lymphocytes % 3 L (Manual) Monocytes % Monocytes % (Manual) 2 Eosinophils % Basophils % Metamyelocytes % 1 H (manual) Nucleated Red Blood 0.4 H Cells % Immature 0.160 H Granulocytes # Neutrophils # Neutrophils # 14.8 H (Manual) Band Neutrophils # 7.7 H Lymphocytes (Manual) 0.6 L Lymphocytes # Monocytes # Monocytes # (Manual) 0.4 Eosinophils # Basophils # Metamyelocytes # 0.2 H Nucleated Red Blood Cells # Platelet Estimate DECREASED Polychromasia 1+ Hypochromasia 1+ Poikilocytosis 3+ Anisocytosis 2+ Macrocytosis 2+ Absolute 0.105 Reticulocyte Count Percent Reticulocyte 3.8 H Count Sodium Level 127 L Potassium Level 4.1 Chloride Level 91 L Carbon Dioxide Level 21 Anion Gap 15 H Blood Urea Nitrogen 27 H Creatinine 2.55 H Est Glomerular Filtrat Rate mL/min Glucose Level 180 Calcium Level 7.3 L Phosphorus Level 2.4 L Magnesium Level 1.8 Iron Level 27 L Total Iron Binding 61 L Capacity Percent Iron 44 Saturation Ferritin Pending Total Bilirubin 0.2 Direct Bilirubin 0.00 Indirect Bilirubin 0.2 Aspartate Amino 52 H Transf (AST/SGOT) Alanine 16 Aminotransferase (AL T/SGPT) Alkaline Phosphatase 270 H Total Protein 4.7 L Albumin 1.7 L Vitamin B12 Level > 1000 H Folate > 20.0 H Random Vancomycin < 5.0 Level Test 07/30/18 08:54 Bedside Glucose 225 H Medications Current Medications Atorvastatin Calcium (Lipitor) 40 mg QHS PO Last administered on 07/29/18 21:08; Admin Dose 40 MG; Start 07/14/18 at 21:00 Multivit/Ca Carb/ B Cmplx/FA/Prenat (Shyann-Raj) 1 tab DAILY PO Last administered on 07/30/18 09:11; Admin Dose 1 TAB; Start 07/14/18 at 09:00 Tramadol HCl (Ultram) 50 mg TID PRN PO PAIN LEVEL 6-10 Last administered on 07/24/18 03:35; Admin Dose 50 MG; Start 07/13/18 at 23:30 Acetaminophen (Tylenol Tab) 650 mg Q6H PRN PO MILD PAIN(1-3)OR ELEVATED TEMP; Start 07/13/18 at 23:30 Hydralazine HCl (Apresoline) 20 mg Q6H PRN IV sbp over 170 Last administered on 07/14/18at 11:56; Admin Dose 20 MG; Start 07/13/18 at 23:30 Miscellaneous Information 1 ea NOTE XX ; Start 07/13/18 at 23:30 Glucose (Glutose) 15 gm Q15M PRN PO DECREASED GLUCOSE; Start 07/13/18 at 23:30 Glucose (Glutose) 22.5 gm Q15M PRN PO DECREASED GLUCOSE; Start 07/13/18 at 23:30 Dextrose (D50w Syringe) 25 ml Q15M PRN IV DECREASED GLUCOSE Last administered on 07/24/18at 08:19; Admin Dose 25 ML; Start 07/13/18 at 23:30 Dextrose (D50w Syringe) 50 ml Q15M PRN IV DECREASED GLUCOSE; Start 07/13/18 at 23:30 Glucagon (Glucagen) 1 mg Q15M PRN IM DECREASED GLUCOSE; Start 07/13/18 at 23:30 Glucose (Glutose) 15 gm Q15M PRN BUCCAL DECREASED GLUCOSE; Start 07/13/18 at 23:30 Ondansetron HCl (Zofran Inj) 4 mg Q4H PRN IV NAUSEA AND/OR VOMITING Last administered on 07/23/18at 16:30; Admin Dose 4 MG; Start 07/14/18 at 00:30 Miscellaneous Information (Pending [facility] Order For Wound Care) This patient easley... PRN PRN XX WOUND CARE; Start 07/14/18 at 04:30 Heparin Sodium (Porcine) (Heparin (1000 Units/ml)) 4,000 unit AFTER DIALYSIS CATHETER Last administered on 07/27/18at 20:16; Admin Dose 4,000 UNIT; Start 07/17/18 at 12:30 Diagnostic Test (Pha) (Accu-Chek) 1 ea 02 XX Last administered on 07/30/18at 01:10; Admin Dose 1 EA; Start 07/19/18 at 02:00 IV Flush (NS 3 ml) 3 ml PER PROTOCOL IV ; Start 07/20/18 at 11:30 Calcium/Vitamin D (Oyster Shell/ Vit-D (500/200)) 1 tab BID PO Last administered on 07/30/18 09:11; Admin Dose 1 TAB; Start 07/20/18 at 21:00 Metoprolol Tartrate (Lopressor) 5 mg Q4H PRN IV HR > 110; Hold if SBP < 100 Last administered on 07/21/18 01:52; Admin Dose 5 MG; Start 07/21/18 at 02:00 Hydromorphone HCl (Dilaudid) 1 mg Q4H PRN IV SEVERE PAIN LEVEL 7-10 Last administered on 07/23/18 21:37; Admin Dose 1 MG; Start 07/23/18 at 22:00 Metoclopramide HCl (Reglan) 10 mg Q6H PRN IV NAUSEA AND/OR VOMITING Last administered on 07/26/18 22:31; Admin Dose 10 MG; Start 07/23/18 at 20:30 Norepinephrine 250 ml @ 1.875 mls/ hr TITRATE IV Last administered on 07/29/18 01:20; Admin Dose 3.75 MLS/HR; Start 07/24/18 at 11:00 Collagenase (Santyl) 1 applic DAILY TOP Last administered on 07/30/18 09:14; Admin Dose 1 APPLIC; Start 07/25/18 at 09:00 Phenylephrine HCl 80 mg/Dextrose 250 ml @ 18.75 mls/ hr TITRATE IV Last administered on 07/30/18 09:26; Admin Dose 46.88 MLS/HR; Start 07/24/18 at 20:30 Insulin Aspart (Novolog Insulin Pen) NOVOLOG *MILD* ALGORI... Q4 SC Last administered on 07/30/18 09:13; Admin Dose 3 UNIT; Start 07/24/18 at 21:00 Propofol 100 ml @ 1.851 mls/ hr Q12H IV Last administered on 07/28/18 20:30; Admin Dose 5.553 MLS/HR; Start 07/25/18 at 13:00 Pantoprazole (Protonix Iv) 40 mg BID@06,18 IV Last administered on 07/30/18 05:14; Admin Dose 40 MG; Start 07/26/18 at 18:00 Insulin Glargine (Lantus) 10 units DAILY@0800 SC Last administered on 07/30/18 09:13; Admin Dose 10 UNITS; Start 07/27/18 at 08:00 Fentanyl 100 ml @ 2.5 mls/hr TITRATE IV Last administered on 07/30/18 06:29; Admin Dose 10 MLS/HR; Start 07/26/18 at 11:00 Metoclopramide HCl (Reglan) 5 mg Q6 IV Last administered on 07/30/18 05:14; Admin Dose 5 MG; Start 07/27/18 at 18:00 Levothyroxine Sodium (Synthroid Iv) 50 mcg DAILY@06 IV Last administered on 07/30/18 05:14; Admin Dose 50 MCG; Start 07/28/18 at 06:00 Vancomycin HCl (Vanco Iv Per Pharmacy) VANCOMYCIN PER PHARMACY PER PROTOCOL XX ; Start 07/28/18 at 10:30 Midodrine (Proamatine) 5 mg TID@09,13,17 PO Last administered on 07/30/18 09:11; Admin Dose 5 MG; Start 07/28/18 at 17:00 Hydrocortisone (Solu-Cortef) 50 mg DAILY IV Last administered on 07/30/18 09:10; Admin Dose 50 MG; Start 07/29/18 at 09:00 Cefepime HCl 50 ml @ 100 mls/hr Q24H IVPB ; Start 07/30/18 at 12:00 Assessment/Plan Hospital Course (Demo Recall) IMPRESSION 1. Cardiopulmonary arrest. Prolonged CPR with ACLS protocol. 2. Multiple cardiopulmonary arrests and prolonged hypotension, despite this patient seems to be somewhat neurologically intact. 3. End-stage renal failure on hemodialysis. 4. Possible aspiration pneumonia. Septic shock. Requiring vasopressor support, increasing pressor requirements 5. History of severe peripheral vascular disease. 6. Possible acute GI bleed given acute drop in hemoglobin prior to cardiac arrest 7. 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 Vasopressor support as needed. 2. Mechanical ventilation currently not stable for CPAP trials. Unlikely to be liberated from mechanical ventilation 3. Broad-spectrum antibiotic coverage for possible aspiration. 4. GI recommendations 5. DVT and GI prophylaxis. Critical care time 40 minutes. Prognosis guarded. Family conference regarding goals of care. Very poor prognosis. DEVAN MIDDLETON MD, [facility] Jul 30, 2018 10:32
--- NOTE | 2018-07-30 11:12 | PN ---
Date/Time of Note Date/Time of Note DATE: 07/30/18 TIME: 11:08 Assessment/Plan VTE Prophylaxis Risk score (from Ns)>0 risk: 24 SCD applied (from [facility]): No SCD contraindicated: low risk/ambulating Pharmacological prophylaxis: NA/contraindicated Pharm contraindication: low risk/ambulating Lines/Catheters IV Catheter Type (from [facility]): A Line Urinary Cath still in place: Yes Reason Cath still needed: urinary retention Assessment/Plan Hospital Course 78 y/o with IMPRESSION: # Cardiac pulmonary arrest s/p vfib # Respiratory failure s/p intubation # Hypotension s/p shock? cardiac vs hypovolemic/septic #LE me anemia likely to secondary to GI bleed H&H stable status post unit 2 units of blood # Hyperkalemia due to missed hemodialysis.due to fall # Acute comminuted fractures of the distal tibia and fibula that involve the distal tibiofibular joint. Distal tibia fracture extends to within 0.3 cm of the tibial plafond but does not involve the articular surface. The appearance is in keeping with an extra-articular Pilon fracture. #. Hyponatremia. resolved #. Metabolic acidosis. # Cardiomegaly and pulmonary edema. #. Aortic atherosclerosis. #. History of congestive heart failure. # History of diabetic retinopathy, nephropathy. #. Hypoalbuminemia. # The patient has right lower extremity brace.with fracture #. Left stump bruise now noticed to have a fracture on the left hip on the x- rays # ? AFIB. # Congestive heart failure by x-ray, question systolic versus diastolic, likely acute on chronic given presentation. # elevated troponin in the setting of end-stage kidney disease # Epigastric pain r/o gastritis/ GB disease> CT scan was pending # elevated troponin in the setting of cardiac arrest downtrending # Leukocytosis # AMS ? sedation vs s/p cpr arrest with encephalopathy , now with new cerebellar infarcts Plan - MRI Of the brain pending -Dr Pham to see the patient today - Start Low-dose aspirin statins/statin - Hd today for volume overload - f/u midodrine and hydrocortisone - cw vancomycin/cefepime -Feeding as tolerated - Hb stable , no evidence of bleeding -Dr. Boston was also called for fracture of the left hip> intervention currently as patient is unstable -Hold anticoagulation due to bleeding - fu cardiac/pul recs Is chemical code now however overall prognosis is guarded will wait for neuro logy recommendations Result Diagram: 07/30/18 0450 07/30/18 0450 Results 24hrs Laboratory Tests Test 07/29/18 13:43 07/29/18 17:15 07/29/18 21:12 07/29/18 23:53 Bedside Glucose 145 104 96 139 Test 07/30/18 04:30 07/30/18 04:50 07/30/18 05:18 07/30/18 08:54 Ammonia < 9 L White Blood Count 22.2 #H Red Blood Count 2.84 L Hemoglobin 9.1 L Hematocrit 27.2 L Mean Corpuscular 95.8 Volume Mean Corpuscular 32.0 Hemoglobin Mean Corpuscular 33.5 Hemoglobin Concent Red Cell 19.3 H Distribution Width Platelet Count 92 L Mean Platelet Volume 13.0 H Immature 0.700 H Granulocytes % Neutrophils % Segmented 59 Neutrophils % (Manual) Band Neutrophils % 35 H (Manual) Lymphocytes % Lymphocytes % 3 L (Manual) Monocytes % Monocytes % (Manual) 2 Eosinophils % Basophils % Metamyelocytes % 1 H (manual) Nucleated Red Blood 0.4 H Cells % Immature 0.160 H Granulocytes # Neutrophils # Neutrophils # 14.8 H (Manual) Band Neutrophils # 7.7 H Lymphocytes (Manual) 0.6 L Lymphocytes # Monocytes # Monocytes # (Manual) 0.4 Eosinophils # Basophils # Metamyelocytes # 0.2 H Nucleated Red Blood Cells # Platelet Estimate DECREASED Polychromasia 1+ Hypochromasia 1+ Poikilocytosis 3+ Anisocytosis 2+ Macrocytosis 2+ Absolute 0.105 Reticulocyte Count Percent Reticulocyte 3.8 H Count Sodium Level 127 L Potassium Level 4.1 Chloride Level 91 L Carbon Dioxide Level 21 Anion Gap 15 H Blood Urea Nitrogen 27 H Creatinine 2.55 H Est Glomerular Filtrat Rate mL/min Glucose Level 180 Calcium Level 7.3 L Phosphorus Level 2.4 L Magnesium Level 1.8 Iron Level 27 L Total Iron Binding 61 L Capacity Percent Iron 44 Saturation Ferritin 1370.0 H Total Bilirubin 0.2 Direct Bilirubin 0.00 Indirect Bilirubin 0.2 Aspartate Amino 52 H Transf (AST/SGOT) Alanine 16 Aminotransferase (AL T/SGPT) Alkaline Phosphatase 270 H Total Protein 4.7 L Albumin 1.7 L Vitamin B12 Level > 1000 H Folate > 20.0 H Random Vancomycin < 5.0 Level Bedside Glucose 167 225 H Test 07/30/18 10:05 Creatine Kinase 41 Creatine Kinase 3.2 Index Creatinine Kinase MB 1.32 (Mass) Troponin I 1.240 *H Subjective 24 Hr Interval Summary Free Text/Dictation And is currently on Jake-Synephrine 250 SBP ranging between 90s-100 Is getting more swollen Of sedation the patient just opens her eyes does not follow any commands ct of the head shows new cerebellar infarcts Exam/Review of Systems Exam Vitals Vital Signs Date Temp Pulse Resp B/P (MAP) Pulse Ox O2 O2 Flow FiO2 Time Delivery Rate 07/30/18 76 08:00 07/30/18 60 08:00 07/30/18 17 111/34 98 06:45 (59) 07/30/18 Mechanical 06:00 Ventilator 07/30/18 98.4 04:00 Intake and Output 07/29/18 07/29/18 07/30/18 1515:00 23:00 07:00 IntakeIntake Total 691.053 ml 704.75 ml 607.25 ml OutputOutput Total 0 ml 10 ml 0 ml BalanceBalance 691.053 ml 694.75 ml 607.25 ml Exam espiratory: diminished breath sounds Cardiovascular: regular rate and rhythm Gastrointestinal: soft, bowel sounds (+) Extremities: edema (+) 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 open eyes does not follow any commands Results Results 24hrs Laboratory Tests Test 07/29/18 13:43 07/29/18 17:15 07/29/18 21:12 07/29/18 23:53 Bedside Glucose 145 104 96 139 Test 07/30/18 04:30 07/30/18 04:50 07/30/18 05:18 07/30/18 08:54 Ammonia < 9 L White Blood Count 22.2 #H Red Blood Count 2.84 L Hemoglobin 9.1 L Hematocrit 27.2 L Mean Corpuscular 95.8 Volume Mean Corpuscular 32.0 Hemoglobin Mean Corpuscular 33.5 Hemoglobin Concent Red Cell 19.3 H Distribution Width Platelet Count 92 L Mean Platelet Volume 13.0 H Immature 0.700 H Granulocytes % Neutrophils % Segmented 59 Neutrophils % (Manual) Band Neutrophils % 35 H (Manual) Lymphocytes % Lymphocytes % 3 L (Manual) Monocytes % Monocytes % (Manual) 2 Eosinophils % Basophils % Metamyelocytes % 1 H (manual) Nucleated Red Blood 0.4 H Cells % Immature 0.160 H Granulocytes # Neutrophils # Neutrophils # 14.8 H (Manual) Band Neutrophils # 7.7 H Lymphocytes (Manual) 0.6 L Lymphocytes # Monocytes # Monocytes # (Manual) 0.4 Eosinophils # Basophils # Metamyelocytes # 0.2 H Nucleated Red Blood Cells # Platelet Estimate DECREASED Polychromasia 1+ Hypochromasia 1+ Poikilocytosis 3+ Anisocytosis 2+ Macrocytosis 2+ Absolute 0.105 Reticulocyte Count Percent Reticulocyte 3.8 H Count Sodium Level 127 L Potassium Level 4.1 Chloride Level 91 L Carbon Dioxide Level 21 Anion Gap 15 H Blood Urea Nitrogen 27 H Creatinine 2.55 H Est Glomerular Filtrat Rate mL/min Glucose Level 180 Calcium Level 7.3 L Phosphorus Level 2.4 L Magnesium Level 1.8 Iron Level 27 L Total Iron Binding 61 L Capacity Percent Iron 44 Saturation Ferritin 1370.0 H Total Bilirubin 0.2 Direct Bilirubin 0.00 Indirect Bilirubin 0.2 Aspartate Amino 52 H Transf (AST/SGOT) Alanine 16 Aminotransferase (AL T/SGPT) Alkaline Phosphatase 270 H Total Protein 4.7 L Albumin 1.7 L Vitamin B12 Level > 1000 H Folate > 20.0 H Random Vancomycin < 5.0 Level Bedside Glucose 167 225 H Test 07/30/18 10:05 Creatine Kinase 41 Creatine Kinase 3.2 Index Creatinine Kinase MB 1.32 (Mass) Troponin I 1.240 *H Medications Medication Current Medications Atorvastatin Calcium (Lipitor) 40 mg QHS PO Last administered on 07/29/18at 21:08; Admin Dose 40 MG; Start 07/14/18 at 21:00 Multivit/Ca Carb/ B Cmplx/FA/Prenat (Shyann-Raj) 1 tab DAILY PO Last administered on 07/30/18at 09:11; Admin Dose 1 TAB; Start 07/14/18 at 09:00 Tramadol HCl (Ultram) 50 mg TID PRN PO PAIN LEVEL 6-10 Last administered on 07/24/18at 03:35; Admin Dose 50 MG; Start 07/13/18 at 23:30 Acetaminophen (Tylenol Tab) 650 mg Q6H PRN PO MILD PAIN(1-3)OR ELEVATED TEMP; Start 07/13/18 at 23:30 Hydralazine HCl (Apresoline) 20 mg Q6H PRN IV sbp over 170 Last administered on 07/14/18at 11:56; Admin Dose 20 MG; Start 07/13/18 at 23:30 Miscellaneous Information 1 ea NOTE XX ; Start 07/13/18 at 23:30 Glucose (Glutose) 15 gm Q15M PRN PO DECREASED GLUCOSE; Start 07/13/18 at 23:30 Glucose (Glutose) 22.5 gm Q15M PRN PO DECREASED GLUCOSE; Start 07/13/18 at 23:30 Dextrose (D50w Syringe) 25 ml Q15M PRN IV DECREASED GLUCOSE Last administered on 07/24/18at 08:19; Admin Dose 25 ML; Start 07/13/18 at 23:30 Dextrose (D50w Syringe) 50 ml Q15M PRN IV DECREASED GLUCOSE; Start 07/13/18 at 23:30 Glucagon (Glucagen) 1 mg Q15M PRN IM DECREASED GLUCOSE; Start 07/13/18 at 23:30 Glucose (Glutose) 15 gm Q15M PRN BUCCAL DECREASED GLUCOSE; Start 07/13/18 at 23:30 Ondansetron HCl (Zofran Inj) 4 mg Q4H PRN IV NAUSEA AND/OR VOMITING Last administered on 07/23/18at 16:30; Admin Dose 4 MG; Start 07/14/18 at 00:30 Miscellaneous Information [facility] This patient easley... PRN PRN XX WOUND CARE; Start 07/14/18 at 04:30 Heparin Sodium (Porcine) (Heparin (1000 Units/ml)) 4,000 unit AFTER DIALYSIS CATHETER Last administered on 07/27/18at 20:16; Admin Dose 4,000 UNIT; Start 07/17/18 at 12:30 Diagnostic Test (Pha) (Accu-Chek) 1 ea 02 XX Last administered on 07/30/18at 01:10; Admin Dose 1 EA; Start 07/19/18 at 02:00 IV Flush (NS 3 ml) 3 ml PER PROTOCOL IV ; Start 07/20/18 at 11:30 Calcium/Vitamin D (Oyster Shell/ Vit-D (500/200)) 1 tab BID PO Last administered on 07/30/18at 09:11; Admin Dose 1 TAB; Start 07/20/18 at 21:00 Metoprolol Tartrate (Lopressor) 5 mg Q4H PRN IV HR > 110; Hold if SBP < 100 Last administered on 07/21/18 01:52; Admin Dose 5 MG; Start 07/21/18 at 02:00 Hydromorphone HCl (Dilaudid) 1 mg Q4H PRN IV SEVERE PAIN LEVEL 7-10 Last administered on 07/23/18 21:37; Admin Dose 1 MG; Start 07/23/18 at 22:00 Metoclopramide HCl (Reglan) 10 mg Q6H PRN IV NAUSEA AND/OR VOMITING Last administered on 07/26/18 22:31; Admin Dose 10 MG; Start 07/23/18 at 20:30 Norepinephrine 250 ml @ 1.875 mls/ hr TITRATE IV Last administered on 07/29/18 01:20; Admin Dose 3.75 MLS/HR; Start 07/24/18 at 11:00 Collagenase (Santyl) 1 applic DAILY TOP Last administered on 07/30/18 09:14; Admin Dose 1 APPLIC; Start 07/25/18 at 09:00 Phenylephrine HCl 80 mg/Dextrose 250 ml @ 18.75 mls/ hr TITRATE IV Last administered on 07/30/18 09:26; Admin Dose 46.88 MLS/HR; Start 07/24/18 at 20:30 Insulin Aspart (Novolog Insulin Pen) NOVOLOG *MILD* ALGORI... Q4 SC Last administered on 07/30/18 09:13; Admin Dose 3 UNIT; Start 07/24/18 at 21:00 Propofol 100 ml @ 1.851 mls/ hr Q12H IV Last administered on 07/28/18 20:30; Admin Dose 5.553 MLS/HR; Start 07/25/18 at 13:00 Insulin Glargine (Lantus) 10 units DAILY@0800 SC Last administered on 07/30/18 09:13; Admin Dose 10 UNITS; Start 07/27/18 at 08:00 Fentanyl 100 ml @ 2.5 mls/hr TITRATE IV Last administered on 07/30/18 06:29; Admin Dose 10 MLS/HR; Start 07/26/18 at 11:00 Metoclopramide HCl (Reglan) 5 mg Q6 IV Last administered on 07/30/18at 05:14; Admin Dose 5 MG; Start 07/27/18 at 18:00 Levothyroxine Sodium (Synthroid Iv) 50 mcg DAILY@06 IV Last administered on 07/30/18at 05:14; Admin Dose 50 MCG; Start 07/28/18 at 06:00 Vancomycin HCl (Vanco Iv Per Pharmacy) VANCOMYCIN PER PHARMACY PER PROTOCOL XX ; Start 07/28/18 at 10:30 Midodrine (Proamatine) 5 mg TID@09,13,17 PO Last administered on 07/30/18at 09:11; Admin Dose 5 MG; Start 07/28/18 at 17:00 Hydrocortisone (Solu-Cortef) 50 mg DAILY IV Last administered on 07/30/18at 09 :10; Admin Dose 50 MG; Start 07/29/18 at 09:00 Cefepime HCl 50 ml @ 100 mls/hr Q24H IVPB ; Start 07/30/18 at 12:00 Lansoprazole (Prevacid) 30 mg BID@0600,1800 PO ; Start 07/30/18 at 18:00 ADAM DUARTE MD Jul 30, 2018 11:12
[2018-07-30] MEDS: PROPOFOL 100 ML IV SCH (13:00)
[2018-07-30] MEDS: CEFEPIME 1GM/50 ML IVPB SCH (13:18)
[2018-07-30] MEDS: ASPIRIN 81 MG TAB PO SCH (13:19)
[2018-07-30] MEDS: LANSOPRAZOLE 30 MG CAP PO SCH (18:00)
--- NOTE | 2018-07-30 19:14 | CONS ---
DATE OF ADMISSION: 07/13/2018 DATE OF CONSULTATION: 07/30/2018 TYPE OF CONSULTATION: Neurology. Thank you, Dr. Hernandez, for your kind referral for evaluation of stroke and encephalopathy. HISTORY OF PRESENT ILLNESS: The patient was admitted in the beginning of the month after she was missing dialysis, complaining of pain, had a right ankle fracture. Apparently throughout hospitalization, she suffered several episodes of cardiopulmonary arrest on 07/14/2018 which was about 6 days ago. It was episode of PEA. According to the nurse, the patient continues to be minimally responsive/unresponsive. CAT scan of the head was done showing development of new cerebellar hypodensities likely reflecting ischemic infarcts bilaterally. Current medical problems are multiple hypotensive, septic versus cardiac stroke, anemia, comminuted fracture of the distal tibia and fibula on the right, status post cast placement, cardiomegaly and pulmonary edema, congestive heart failure, diabetic retinopathy, left-sided blindness, status post left below knee amputation. CAT scan as I mentioned was done yesterday and suggested further evaluation with MRI for bilateral cerebellar infarcts but atrophy was seen and compensatory ventricular enlargement. No mass effect. Chest x-ray: Right basilar infiltrates, moderate pleural effusion. CURRENT MEDICATIONS: 1. Lipitor 20. 2. Prevacid. 3. Midodrine. 4. Cefepime. 5. Aspirin 81. 6. Hydrocortisone. 7. Vancomycin. 8. L-thyroxine. 9. Reglan. 10. Insulin. 11. She is off sedation currently. SOCIAL HISTORY: No alcohol, tobacco, drug use. FAMILY HISTORY: Noncontributory. PHYSICAL EXAMINATION: VITAL SIGNS: Today, 98.8 temperature, 77 pulse, respirations 21, 125/37 blood pressure. GENERAL: Not in acute distress, lying in bed. HEENT: Normocephalic head. Intubated orally. LUNGS: Scattered rhonchi. CARDIAC: Normal cardiac rhythm and sounds. ABDOMEN: Soft. EXTREMITIES: Right distal foreleg and ankle covered with cast, status post below knee amputation on the left. NEUROLOGIC: The patient keeps her eyes open. No response to voice or command. No response to visual threat. Pupils: Right-sided about 2 mm, sluggishly borderline reactive to light, opacified left pupil. Extraocular movements are intact on oculocephalic maneuver. No spontaneous movements. Corneal reflexes are present bilaterally. Left palpebral fissure is smaller. Gag is present. Flaccid extremities. No withdrawal to pain. Deep tendon reflexes are 2+ upper extremities, absent knee jerks. No resting tremor observed. LABORATORY DATA: The patient's labs show a WBC count 22.2, hemoglobin 9.1, hematocrit 27.2, platelets were 92, bands 35. PT 13, PTT 41. Chemistry: Sodium 127, potassium 4.1, chloride 91, BUN 27, creatinine 2.5. AST 52, alkaline phosphatase 270, albumin 1.7, total protein 4.7. IMPRESSION: Severe encephalopathy in a 78-year-old lady with multiple medical problems, currently shock with hypotension, respiratory failure, status post several episodes of cardiopulmonary arrest on 07/24/2018, also renal insufficiency, electrolyte imbalance. Repeated CAT scan shows presence of new cerebellar infarcts but no mass effect. Radiologist suggested MRI for better visualization, but she is too unstable to go for MRI. Her encephalopathy is likely multifactorial and at times it is impossible to differentiate post-anoxic encephalopathy from toxic metabolic encephalopathy related to ongoing medical problems. Overall, she is very poor prognosis for functional recovery. The patient was made DNR with exception of chemical code. I do not think she needs MRI. I do not think it will make any difference in terms of further treatment even if we confirm presence of strokes on MRI or more extensive strokes on MRI. I would recommend to continue current treatment and also given multiple ongoing medical problems and poor prognosis for recovery, she may benefit to get a instructional support specialist on board. Most likely stroke was related to anoxia and hypotension during cardiac arrest, but given her risk factors, I think it is okay to continue antiplatelet therapy. Try to keep her normotensive and euglycemic. Thank you very much for this consultation. Dictated By: MELLO DIAZ/NTS Conf#: [id number] DID#: [id number] CC: SAM KRUEGER MD; GLORIA TURNER MD;*EndCC* MTDD
[2018-07-30] MEDS: ATORVASTATIN 20 MG TAB PO SCH (21:28)
[2018-07-31] VITALS (101 sets, daily range): BP systolic 91–132; BP diastolic 22–57; PULSE 47–100; RESP 13–44
[2018-07-31] MEDS: INSULIN ASPART [NOVOLOG] 3 ML PEN SC SCH ×6 (00:04→20:18)
[2018-07-31] MEDS: PROPOFOL 100 ML IV SCH ×3 (00:05→23:43)
[2018-07-31] MEDS: ACCU-CHEK XX SCH (01:54)
[2018-07-31] MEDS: PHENYLephrine 80 MG in DEXTROSE 5% 242 ML IV SCH ×2 (05:03→12:18)
[2018-07-31] MEDS: LEVOTHYROXINE 100 MCG VIAL IV SCH (05:22)
[2018-07-31] MEDS: METOCLOPRAMIDE 10 MG INJ IV SCH ×5 (05:22→23:38)
[2018-07-31] MEDS: LANSOPRAZOLE 30 MG CAP PO SCH ×2 (05:22→17:14)
--- NOTE | 2018-07-31 08:02 | PN ---
Date/Time of Note Date/Time of Note DATE: 07/31/18 TIME: 07:59 Assessment/Plan VTE Prophylaxis Risk score (from Ns)>0 risk: 25 SCD applied (from [facility] [place]): No SCD contraindicated: low risk/ambulating Pharmacological prophylaxis: NA/contraindicated Pharm contraindication: low risk/ambulating Lines/Catheters IV C[facility]ter Type (from [facility]): A Line Urinary Cath still in place: Yes Reason Cath still needed: urinary retention Assessment/Plan Hospital Course 78 y/o with IMPRESSION: # Cardiac pulmonary arrest s/p vfib # Respiratory failure s/p intubation # Hypotension s/p shock? cardiac vs hypovolemic/septic #LE me anemia likely to secondary to GI bleed H&H stable status post unit 2 units of blood # Hyperkalemia due to missed hemodialysis.due to fall # Acute comminuted fractures of the distal tibia and fibula that involve the distal tibiofibular joint. Distal tibia fracture extends to within 0.3 cm of the tibial plafond but does not involve the articular surface. The appearance is in keeping with an extra-articular Pilon fracture. #. Hyponatremia. resolved #. Metabolic acidosis. # Cardiomegaly and pulmonary edema. #. Aortic atherosclerosis. #. History of congestive heart failure. # History of diabetic retinopathy, nephropathy. #. Hypoalbuminemia. # The patient has right lower extremity brace.with fracture #. Left stump bruise now noticed to have a fracture on the left hip on the x- rays # ? AFIB. # Congestive heart failure by x-ray, question systolic versus diastolic, likely acute on chronic given presentation. # elevated troponin in the setting of end-stage kidney disease # Epigastric pain r/o gastritis/ GB disease> CT scan was pending # elevated troponin in the setting of cardiac arrest downtrending # Leukocytosis # AMS ? sedation vs s/p cpr arrest with encephalopathy , now with new cerebellar infarcts Plan - MRI Of the brain pending too unstable - Seen by neurology > poor prognosis - cw Low-dose aspirin statins/statin - Hd today tmw - increase lantus - try to decrease sedation and assess mental status - f/u midodrine with parametes anddec hydrocortisone - cw vancomycin/cefepime - replete lytes -Feeding as tolerated - Hb stable , no evidence of bleeding -Dr. [place] was also called for fracture of the left hip> intervention currently as patient is unstable -Hold anticoagulation due to bleeding - fu cardiac/pul recs Overall porr prognosis> will talk to family again today Is chemical code now however overall prognosis is guarded will wait for neurology recommendations Result Diagram: 07/31/18 0400 07/31/18 0400 Results 24hrs Laboratory Tests Test 07/30/18 08:54 07/30/18 10:05 07/30/18 13:24 07/30/18 17:55 Bedside Glucose 225 H 255 H 260 H Creatine Kinase 41 Creatine Kinase 3.2 Index Creatinine Kinase MB 1.32 (Mass) Troponin I 1.240 *H Test 07/30/18 21:27 07/30/18 23:59 07/31/18 04:00 07/31/18 04:35 Bedside Glucose 167 208 202 White Blood Count 19.1 H Red Blood Count 2.63 L Hemoglobin 8.6 L Hematocrit 24.9 L Mean Corpuscular 94.7 Volume Mean Corpuscular 32.7 Hemoglobin Mean Corpuscular 34.5 Hemoglobin Concent Red Cell 19.2 H Distribution Width Platelet Count 102 L Mean Platelet Volume 12.1 H Immature 1.200 H Granulocytes % Neutrophils % Lymphocytes % Monocytes % Eosinophils % Basophils % Nucleated Red Blood 0.3 H Cells % Immature 0.230 H Granulocytes # Neutrophils # Lymphocytes # Monocytes # Eosinophils # Basophils # Nucleated Red Blood Cells # Sodium Level 130 L Potassium Level 3.2 L Chloride Level 93 L Carbon Dioxide Level 25 Anion Gap 12 Blood Urea Nitrogen 21 H Creatinine 1.79 H Est Glomerular Filtrat Rate mL/min Glucose Level 190 Calcium Level 7.4 L Phosphorus Level 1.4 #L Magnesium Level 1.7 Subjective 24 Hr Interval Summary Free Text/Dictation s/p HD yesterday with removal of 2 L pt does not follow commands Exam/Review of Systems Exam Vitals Vital Signs Date Temp Pulse Resp B/P (MAP) Pulse Ox O2 O2 Flow FiO2 Time Delivery Rate 07/31/18 91 26 126/40 97 06:45 (68) 07/31/18 Mechanical 06:00 Ventilator 07/31/18 60 05:40 07/31/18 98.9 04:00 Intake and Output 07/30/18 07/30/18 07/31/18 1515:00 23:00 07:00 IntakeIntake Total 1162.51 ml 799.25 ml 646.00 ml OutputOutput Total 0 ml 210 ml 10 ml BalanceBalance 1162.51 ml 589.25 ml 636.00 ml Exam espiratory: diminished breath sounds Cardiovascular: regular rate and rhythm Gastrointestinal: soft, bowel sounds (+) Extremities: edema (+) 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 open eyes does not follow any commands Results Results 24hrs Laboratory Tests Test 07/30/18 08:54 07/30/18 10:05 07/30/18 13:24 07/30/18 17:55 Bedside Glucose 225 H 255 H 260 H Creatine Kinase 41 Creatine Kinase 3.2 Index Creatinine Kinase MB 1.32 (Mass) Troponin I 1.240 *H Test 07/30/18 21:27 07/30/18 23:59 07/31/18 04:00 07/31/18 04:35 Bedside Glucose 167 208 202 White Blood Count 19.1 H Red Blood Count 2.63 L Hemoglobin 8.6 L Hematocrit 24.9 L Mean Corpuscular 94.7 Volume Mean Corpuscular 32.7 Hemoglobin Mean Corpuscular 34.5 Hemoglobin Concent Red Cell 19.2 H Distribution Width Platelet Count 102 L Mean Platelet Volume 12.1 H Immature 1.200 H Granulocytes % Neutrophils % Lymphocytes % Monocytes % Eosinophils % Basophils % Nucleated Red Blood 0.3 H Cells % Immature 0.230 H Granulocytes # Neutrophils # Lymphocytes # Monocytes # Eosinophils # Basophils # Nucleated Red Blood Cells # Sodium Level 130 L Potassium Level 3.2 L Chloride Level 93 L Carbon Dioxide Level 25 Anion Gap 12 Blood Urea Nitrogen 21 H Creatinine 1.79 H Est Glomerular Filtrat Rate mL/min Glucose Level 190 Calcium Level 7.4 L Phosphorus Level 1.4 #L Magnesium Level 1.7 Medications Medication Current Medications Multivit/Ca Carb/ B Cmplx/FA/Prenat (Shyann-Raj) 1 tab DAILY PO Last administered on 07/30/18at 09:11; Admin Dose 1 TAB; Start 07/14/18 at 09:00 Tramadol HCl (Ultram) 50 mg TID PRN PO PAIN LEVEL 6-10 Last administered on 07/24/18at 03:35; Admin Dose 50 MG; Start 07/13/18 at 23:30 Acetaminophen (Tylenol Tab) 650 mg Q6H PRN PO MILD PAIN(1-3)OR ELEVATED TEMP; Start 07/13/18 at 23:30 Hydralazine HCl (Apresoline) 20 mg Q6H PRN IV sbp over 170 Last administered on 07/14/18at 11:56; Admin Dose 20 MG; Start 07/13/18 at 23:30 Miscellaneous Information 1 ea NOTE XX ; Start 07/13/18 at 23:30 Glucose (Glutose) 15 gm Q15M PRN PO DECREASED GLUCOSE; Start 07/13/18 at 23:30 Glucose (Glutose) 22.5 gm Q15M PRN PO DECREASED GLUCOSE; Start 07/13/18 at 23:30 Dextrose (D50w Syringe) 25 ml Q15M PRN IV DECREASED GLUCOSE Last administered on 07/24/18at 08:19; Admin Dose 25 ML; Start 07/13/18 at 23:30 Dextrose (D50w Syringe) 50 ml Q15M PRN IV DECREASED GLUCOSE; Start 07/13/18 at 23:30 Glucagon (Glucagen) 1 mg Q15M PRN IM DECREASED GLUCOSE; Start 07/13/18 at 23:30 Glucose (Glutose) 15 gm Q15M PRN BUCCAL DECREASED GLUCOSE; Start 07/13/18 at 23:30 Ondansetron HCl (Zofran Inj) 4 mg Q4H PRN IV NAUSEA AND/OR VOMITING Last administered on 07/23/18at 16:30; Admin Dose 4 MG; Start 07/14/18 at 00:30 Miscellaneous Information (Pending Santyl Order For Wound Care) This patient easley... PRN PRN XX WOUND CARE; Start 07/14/18 at 04:30 Heparin Sodium (Porcine) (Heparin (1000 Units/ml)) 4,000 unit AFTER DIALYSIS CATHETER Last administered on 07/27/18at 20:16; Admin Dose 4,000 UNIT; Start 07/17/18 at 12:30 Diagnostic Test (Pha) (Accu-Chek) 1 ea 02 XX Last administered on 07/31/18at 01:54; Admin Dose 1 EA; Start 07/19/18 at 02:00 IV Flush (NS 3 ml) 3 ml PER PROTOCOL IV ; Start 07/20/18 at 11:30 Calcium/Vitamin D (Oyster Shell/ Vit-D (500/200)) 1 tab BID PO Last administered on 07/30/18 21:28; Admin Dose 1 TAB; Start 07/20/18 at 21:00 Metoprolol Tartrate (Lopressor) 5 mg Q4H PRN IV HR > 110; Hold if SBP < 100 Last administered on 07/21/18 01:52; Admin Dose 5 MG; Start 07/21/18 at 02:00 Hydromorphone HCl (Dilaudid) 1 mg Q4H PRN IV SEVERE PAIN LEVEL 7-10 Last administered on 07/23/18 21:37; Admin Dose 1 MG; Start 07/23/18 at 22:00 Metoclopramide HCl (Reglan) 10 mg Q6H PRN IV NAUSEA AND/OR VOMITING Last administered on 07/26/18 22:31; Admin Dose 10 MG; Start 07/23/18 at 20:30 Norepinephrine 250 ml @ 1.875 mls/ hr TITRATE IV Last administered on 07/29/18 01:20; Admin Dose 3.75 MLS/HR; Start 07/24/18 at 11:00 Collagenase (Santyl) 1 applic DAILY TOP Last administered on 07/30/18 09:14; Admin Dose 1 APPLIC; Start 07/25/18 at 09:00 Phenylephrine HCl 80 mg/Dextrose 250 ml @ 18.75 mls/ hr TITRATE IV Last administered on 07/31/18 05:03; Admin Dose 41.25 MLS/HR; Start 07/24/18 at 20:30 Insulin Aspart (Novolog Insulin Pen) NOVOLOG *MILD* ALGORI... Q4 SC Last administered on 07/31/18 05:26; Admin Dose 2 UNIT; Start 07/24/18 at 21:00 Propofol 100 ml @ 1.851 mls/ hr Q12H IV Last administered on 07/28/18 20:30; Admin Dose 5.553 MLS/HR; Start 07/25/18 at 13:00 Fentanyl 100 ml @ 2.5 mls/hr TITRATE IV Last administered on 07/30/18 06:29; Admin Dose 10 MLS/HR; Start 07/26/18 at 11:00 Metoclopramide HCl (Reglan) 5 mg Q6 IV Last administered on 07/31/18 05:22; Admin Dose 5 MG; Start 07/27/18 at 18:00 Levothyroxine Sodium (Synthroid Iv) 50 mcg DAILY@06 IV Last administered on 07/31/18at 05:22; Admin Dose 50 MCG; Start 07/28/18 at 06:00 Vancomycin HCl (Vanco Iv Per Pharmacy) VANCOMYCIN PER PHARMACY PER PROTOCOL XX ; Start 07/28/18 at 10:30 Cefepime HCl 50 ml @ 100 mls/hr Q24H IVPB Last administered on 07/30/18at 13:18; Admin Dose 100 MLS/HR; Start 07/30/18 at 12:00 Lansoprazole (Prevacid) 30 mg BID@0600,1800 PO Last administered on 07/31/18at 05:22; Admin Dose 30 MG; Start 07/30/18 at 18:00 Aspirin (Aspirin) 81 mg DAILY PO Last administered on 07/30/18at 13:19; Admin Dose 81 MG; Start 07/30/18 at 11:30 Atorvastatin Calcium (Lipitor) 20 mg HS PO Last administered on 07/30/18at 21:28; Admin Dose 20 MG; Start 07/30/18 at 21:00 Midodrine (Proamatine) 10 mg TID@09,13,17 PO Last administered on 07/30/18at 13:19; Admin Dose 10 MG; Start 07/30/18 at 13:00 Potassium Phosphate 30 mm/ Sodium Chloride 260 ml @ 65 mls/hr ONCE ONCE IVPB ; Start 07/31/18 at 09:00; Stop 07/31/18 at 12:59 Hydrocortisone (Solu-Cortef) 25 mg DAILY IV ; Start 07/31/18 at 09:00 Insulin Glargine (Lantus) 15 units DAILY@0800 SC ; Start 07/31/18 at 08:00; Status ADAM ESQUEDA MD Jul 31, 2018 08:02
[2018-07-31] MEDS: HYDROCORTISONE 100 MG INJ IV SCH (08:27)
[2018-07-31] MEDS: MULTIVIT/CA CARB/B CMPLX/FA TAB PO SCH (08:30)
[2018-07-31] MEDS: CALCIUM/VITAMIN D (500/200) TAB PO SCH ×2 (08:30→20:14)
[2018-07-31] MEDS: ASPIRIN 81 MG TAB PO SCH (08:30)
[2018-07-31] MEDS: MIDODRINE 5 MG TAB PO SCH ×3 (08:32→16:43)
[2018-07-31] MEDS: COLLAGENASE 5 GM (UD JAR) TOP SCH (08:33)
[2018-07-31] MEDS: BALSAM PERU/CASTOR OIL 60 GM TUBE TOP SCH ×2 (08:33→20:15)
[2018-07-31] MEDS ORDERED: POTASSIUM PHOSPHATE 30 MM in SOD CHLORIDE 0.9% 250 ML IVPB ONE (09:00)
[2018-07-31] MEDS: INSULIN GLARGINE [LANTus] (100 UNITS/ML) SYG SC SCH (09:33)
[2018-07-31] MEDS: CEFEPIME 1GM/50 ML IVPB SCH (12:02)
--- NOTE | 2018-07-31 12:51 | CONS ---
Assessment/Plan Assessment/Plan Hospital Course (Demo Recall) IMP: 1. Preoperative for LE ORIF-NL EF by echo with mod-sev TR. Lexiscan with NL EF and partially reversible inferior wall defect. Thus patient has no cardiac contraindication to proceeding to OR on current medications but at moderate to high risk. Now post-op s/p ORIF 2.Positive troponin 3.BRadycardia to 40's/stable BP. S Misael- now improved with decrease in dose of clonidine and having short runs of tachycardia/SVT. ? Now in AF s/p code yesterday 4.HTN-uncontrolled at this time 5.ankle fracture 6.ESRD on HD 7. TR-mod-sev 8. ? sick euthyroid-elevated TSH and Free t4 9. Patient with PEA and VFA this am requiring ACLS and intubation protocol on onset during HD 10. anemia-acute drop. ? where bleeding,internal given abd pain. Now s/p transfusion PRBC's/possible melena overnight 11.PAF- in AF at this time. Reasonable rates on amiodarone 12. Nstemi- downtrending cardiac enzymes 14. hypotension-on jake- s/p repeat echo 07/29 with EF slightly lower but still wnl 50% 15. UTI Recc -ICU -Continue Jake with weaning as tolerated -continue vent support -Continue ASA as tolerated. Not on systemic anticoagulation secondary to anemia/GIB -transfuse PRBC's as necessary -HD as tolearted only -trend cardiac enzymes -Contineu abx's and f/u cx data Consultation Date/Type/Reason Admit Date/Time Jul 13, 2018 at 21:32 Initial Consult Date 07/16/18 Type of Consult Cardiology Reason for Consultation arrythmia Requesting Provider: ADAM DUARTE MD Date/Time of Note DATE: 07/31/18 TIME: 12:45 Exam/Review of Systems Vital Signs Vitals Vital Signs Date Temp Pulse Resp B/P (MAP) Pulse Ox O2 O2 Flow FiO2 Time Delivery Rate 07/31/18 95 17 124/37 97 12:30 (66) 07/31/18 98.7 12:00 07/31/18 Mechanical 11:30 Ventilator 07/31/18 60 11:20 Intake and Output 07/30/18 07/30/18 07/31/18 1515:00 23:00 07:00 IntakeIntake Total 1162.51 ml 799.25 ml 681.00 ml OutputOutput Total 0 ml 210 ml 10 ml BalanceBalance 1162.51 ml 589.25 ml 671.00 ml Exam Exam Review of Systems: CONSTITUTIONAL: No fevers, chills. PULMONARY: No sob CARDIOVASCULAR: No chest pain/palpitations GASTROINTESTINAL: No nausea/vomiting. GENITOURINARY: No hematuria/dysuria. MUSCULOSKELETAL: No myagias/arthalgias. PSYCHIATRIC: The patient denies depression. NEUROLOGIC: No weakness Constitutional: alert Psych: no complaints Head: normocephalic ENMT: mucosa pink and moist Neck: supple, jvd (9 cm water) Respiratory: diminished breath sounds Cardiovascular: regular rate and rhythm Gastrointestinal: soft, non-tender Musculoskeletal: muscle weakness (generalized) Extremities: other (encephlopathic) Labs Result Diagram: 07/31/18 0400 07/31/18 0400 Results 24hrs Laboratory Tests Test 07/30/18 13:24 07/30/18 17:55 07/30/18 21:27 07/30/18 23:59 Bedside Glucose 255 H 260 H 167 208 Test 07/31/18 04:00 07/31/18 04:35 07/31/18 08:41 07/31/18 12:01 White Blood Count 19.1 H Red Blood Count 2.63 L Hemoglobin 8.6 L Hematocrit 24.9 L Mean Corpuscular 94.7 Volume Mean Corpuscular 32.7 Hemoglobin Mean Corpuscular 34.5 Hemoglobin Concent Red Cell 19.2 H Distribution Width Platelet Count 102 L Mean Platelet Volume 12.1 H Immature 1.200 H Granulocytes % Neutrophils % Segmented 76 Neutrophils % (Manual) Band Neutrophils % 17 H (Manual) Lymphocytes % Reactive Lymphocytes 1 H % (Manual) Monocytes % Monocytes % (Manual) 3 Eosinophils % Basophils % Basophils % (Manual) 2 Promyelocytes % 1 H (Manual) Nucleated Red Blood 0.3 H Cells % Immature 0.230 H Granulocytes # Neutrophils # Neutrophils # 15.1 H (Manual) Band Neutrophils # 3.2 H Lymphocytes # Reactive Lymphocytes 0.1 H # Monocytes # Monocytes # (Manual) 0.5 Eosinophils # Basophils # Basophils # (Manual) 0.3 H Promyelocytes # 0.1 H Nucleated Red Blood Cells # Platelet Estimate DECREASED Giant Platelets 7 H Poikilocytosis 2+ Anisocytosis 2+ Macrocytosis 2+ Sodium Level 130 L Potassium Level 3.2 L Chloride Level 93 L Carbon Dioxide Level 25 Anion Gap 12 Blood Urea Nitrogen 21 H Creatinine 1.79 H Est Glomerular Filtrat Rate mL/min Glucose Level 190 Calcium Level 7.4 L Phosphorus Level 1.4 #L Magnesium Level 1.7 Bedside Glucose 202 227 H 234 H Medications Medications Current Medications Multivit/Ca Carb/ B Cmplx/FA/Prenat (Shyann-Raj) 1 tab DAILY PO Last ad ministered on 07/31/18at 08:30; Admin Dose 1 TAB; Start 07/14/18 at 09:00 Tramadol HCl (Ultram) 50 mg TID PRN PO PAIN LEVEL 6-10 Last administered on 07/24/18at 03:35; Admin Dose 50 MG; Start 07/13/18 at 23:30 Acetaminophen (Tylenol Tab) 650 mg Q6H PRN PO MILD PAIN(1-3)OR ELEVATED TEMP; Start 07/13/18 at 23:30 Hydralazine HCl (Apresoline) 20 mg Q6H PRN IV sbp over 170 Last administered on 07/14/18at 11:56; Admin Dose 20 MG; Start 07/13/18 at 23:30 Miscellaneous Information 1 ea NOTE XX ; Start 07/13/18 at 23:30 Glucose (Glutose) 15 gm Q15M PRN PO DECREASED GLUCOSE; Start 07/13/18 at 23:30 Glucose (Glutose) 22.5 gm Q15M PRN PO DECREASED GLUCOSE; Start 07/13/18 at 23:30 Dextrose (D50w Syringe) 25 ml Q15M PRN IV DECREASED GLUCOSE Last administered on 07/24/18at 08:19; Admin Dose 25 ML; Start 07/13/18 at 23:30 Dextrose (D50w Syringe) 50 ml Q15M PRN IV DECREASED GLUCOSE; Start 07/13/18 at 23:30 Glucagon (Glucagen) 1 mg Q15M PRN IM DECREASED GLUCOSE; Start 07/13/18 at 23:30 Glucose (Glutose) 15 gm Q15M PRN BUCCAL DECREASED GLUCOSE; Start 07/13/18 at 23:30 Ondansetron HCl (Zofran Inj) 4 mg Q4H PRN IV NAUSEA AND/OR VOMITING Last administered on 07/23/18 16:30; Admin Dose 4 MG; Start 07/14/18 at 00:30 Miscellaneous Information (Pending Santyl Order For Wound Care) This patient easley... PRN PRN XX WOUND CARE; Start 07/14/18 at 04:30 Heparin Sodium (Porcine) (Heparin (1000 Units/ml)) 4,000 unit AFTER DIALYSIS CATHETER Last administered on 07/27/18 20:16; Admin Dose 4,000 UNIT; Start 07/17/18 at 12:30 Diagnostic Test (Pha) (Accu-Chek) 1 ea 02 XX Last administered on 07/31/18 01:54; Admin Dose 1 EA; Start 07/19/18 at 02:00 IV Flush (NS 3 ml) 3 ml PER PROTOCOL IV ; Start 07/20/18 at 11:30 Calcium/Vitamin D (Oyster Shell/ Vit-D (500/200)) 1 tab BID PO Last administered on 07/31/18 08:30; Admin Dose 1 TAB; Start 07/20/18 at 21:00 Metoprolol Tartrate (Lopressor) 5 mg Q4H PRN IV HR > 110; Hold if SBP < 100 Last administered on 07/21/18 01:52; Admin Dose 5 MG; Start 07/21/18 at 02:00 Hydromorphone HCl (Dilaudid) 1 mg Q4H PRN IV SEVERE PAIN LEVEL 7-10 Last administered on 07/23/18 21:37; Admin Dose 1 MG; Start 07/23/18 at 22:00 Metoclopramide HCl (Reglan) 10 mg Q6H PRN IV NAUSEA AND/OR VOMITING Last administered on 07/26/18 22:31; Admin Dose 10 MG; Start 07/23/18 at 20:30 Norepinephrine 250 ml @ 1.875 mls/ hr TITRATE IV Last administered on 07/29/18 01:20; Admin Dose 3.75 MLS/HR; Start 07/24/18 at 11:00 Collagenase (Santyl) 1 applic DAILY TOP Last administered on 07/31/18 08:33; Admin Dose 1 APPLIC; Start 07/25/18 at 09:00 Phenylephrine HCl 80 mg/Dextrose 250 ml @ 18.75 mls/ hr TITRATE IV Last administered on 07/31/18 12:18; Admin Dose 31.88 MLS/HR; Start 07/24/18 at 20:30 Insulin Aspart (Novolog Insulin Pen) NOVOLOG *MILD* ALGORI... Q4 SC Last administered on 07/31/18 12:12; Admin Dose 3 UNIT; Start 07/24/18 at 21:00 Propofol 100 ml @ 1.851 mls/ hr Q12H IV Last administered on 07/28/18 20:30; Admin Dose 5.553 MLS/HR; Start 07/25/18 at 13:00 Fentanyl 100 ml @ 2.5 mls/hr TITRATE IV Last administered on 07/30/18 06:29; Admin Dose 10 MLS/HR; Start 07/26/18 at 11:00 Metoclopramide HCl (Reglan) 5 mg Q6 IV Last administered on 07/31/18 12:01; Admin Dose 5 MG; Start 07/27/18 at 18:00 Levothyroxine Sodium (Synthroid Iv) 50 mcg DAILY@06 IV Last administered on 07/31/18 05:22; Admin Dose 50 MCG; Start 07/28/18 at 06:00 Vancomycin HCl (Vanco Iv Per Pharmacy) VANCOMYCIN PER PHARMACY PER PROTOCOL XX ; Start 07/28/18 at 10:30 Cefepime HCl 50 ml @ 100 mls/hr Q24H IVPB Last administered on 07/31/18 12:02; Admin Dose 100 MLS/HR; Start 07/30/18 at 12:00 Lansoprazole (Prevacid) 30 mg BID@0600,1800 PO Last administered on 07/31/18 05:22; Admin Dose 30 MG; Start 07/30/18 at 18:00 Aspirin (Aspirin) 81 mg DAILY PO Last administered on 07/31/18 08:30; Admin Dose 81 MG; Start 07/30/18 at 11:30 Atorvastatin Calcium (Lipitor) 20 mg HS PO Last administered on 07/30/18 21:28; Admin Dose 20 MG; Start 07/30/18 at 21:00 Midodrine (Proamatine) 10 mg TID@09,13,17 PO Last administered on 07/30/18 13:19; Admin Dose 10 MG; Start 07/30/18 at 13:00 Potassium Phosphate 30 mm/ Sodium Chloride 260 ml @ 65 mls/hr ONCE ONCE IVPB Last administered on 07/31/18at 08:28; Admin Dose 65 MLS/HR; Start 07/31/18 at 09:00; Stop 07/31/18 at 12:59 Hydrocortisone (Solu-Cortef) 25 mg DAILY IV Last administered on 07/31/18at 08:27; Admin Dose 25 MG; Start 07/31/18 at 09:00 Insulin Glargine (Lantus) 15 units DAILY@0800 SC Last administered on 07/31/18at 09:33; Admin Dose 15 UNITS; Start 07/31/18 at 09:00 Miscellaneous Information (*Rx Drug Level Order Reminder*) VANCO RANDOM W/ AM LABS... ONCE ONCE XX ; Start 08/01/18 at 05:00; Stop 08/01/18 at 05:01 JUSTICE HARRISON Jul 31, 2018 12:50
--- NOTE | 2018-07-31 14:22 | CONS ---
Consult Date/Type/Reason Admit Date/Time Jul 13, 2018 at 21:32 Initial Consult Date Type of Consult Pulmonary Requesting Provider: ADAM DUARTE MD Date/Time of Note DATE: 07/31/18 TIME: 14:21 Subjective Patient remains somnolent on mechanical ventilation. Objective Vital Signs Date Temp Pulse Resp B/P (MAP) Pulse Ox O2 O2 Flow FiO2 Time Delivery Rate 07/31/18 85 21 98 40 13:27 07/31/18 124/37 12:30 (66) 07/31/18 98.7 12:00 07/31/18 Mechanical 11:30 Ventilator Intake and Output 07/30/18 07/30/18 07/31/18 1414:59 22:59 06:59 IntakeIntake Total 1165.01 ml 794.25 ml 699.75 ml OutputOutput Total 0 ml 210 ml 10 ml BalanceBalance 1165.01 ml 584.25 ml 689.75 ml Exam PHYSICAL EXAMINATION: GENERAL: Chronically ill appearing lady on mechanical ventilation. VITAL SIGNS: Opens eyes attempting to communicate. NECK: Supple. No JVD or lymphadenopathy. CARDIAC: S1, S2, no added sounds or murmurs. CHEST: Diminished air entry bilaterally. ABDOMEN: Soft, nontender. No guarding or rebound. EXTREMITIES: No cyanosis, clubbing or edema. NEUROLOGIC: Unable to assess. Vent Setting Ventilator Support Mode: AC Fraction of Inspired Oxygen pe: 40 Positive End Expiratory Pressu: 5.0 Results/Medications Result Diagram: 07/31/18 0400 07/31/18 0400 Results 24 hrs Laboratory Tests Test 07/30/18 17:55 07/30/18 21:27 07/30/18 23:59 07/31/18 04:00 Bedside Glucose 260 H 167 208 White Blood Count 19.1 H Red Blood Count 2.63 L Hemoglobin 8.6 L Hematocrit 24.9 L Mean Corpuscular 94.7 Volume Mean Corpuscular 32.7 Hemoglobin Mean Corpuscular 34.5 Hemoglobin Concent Red Cell 19.2 H Distribution Width Platelet Count 102 L Mean Platelet Volume 12.1 H Immature 1.200 H Granulocytes % Neutrophils % Segmented 76 Neutrophils % (Manual) Band Neutrophils % 17 H (Manual) Lymphocytes % Reactive Lymphocytes 1 H % (Manual) Monocytes % Monocytes % (Manual) 3 Eosinophils % Basophils % Basophils % (Manual) 2 Promyelocytes % 1 H (Manual) Nucleated Red Blood 0.3 H Cells % Immature 0.230 H Granulocytes # Neutrophils # Neutrophils # 15.1 H (Manual) Band Neutrophils # 3.2 H Lymphocytes # Reactive Lymphocytes 0.1 H # Monocytes # Monocytes # (Manual) 0.5 Eosinophils # Basophils # Basophils # (Manual) 0.3 H Promyelocytes # 0.1 H Nucleated Red Blood Cells # Platelet Estimate DECREASED Giant Platelets 7 H Poikilocytosis 2+ Anisocytosis 2+ Macrocytosis 2+ Sodium Level 130 L Potassium Level 3.2 L Chloride Level 93 L Carbon Dioxide Level 25 Anion Gap 12 Blood Urea Nitrogen 21 H Creatinine 1.79 H Est Glomerular Filtrat Rate mL/min Glucose Level 190 Calcium Level 7.4 L Phosphorus Level 1.4 #L Magnesium Level 1.7 Test 07/31/18 04:35 07/31/18 08:41 07/31/18 12:01 Bedside Glucose 202 227 H 234 H Medications Current Medications Multivit/Ca Carb/ B Cmplx/FA/Prenat (Shyann-Raj) 1 tab DAILY PO Last administered on 07/31/18at 08:30; Admin Dose 1 TAB; Start 07/14/18 at 09:00 Tramadol HCl (Ultram) 50 mg TID PRN PO PAIN LEVEL 6-10 Last administered on 07/24/18at 03:35; Admin Dose 50 MG; Start 07/13/18 at 23:30 Acetaminophen (Tylenol Tab) 650 mg Q6H PRN PO MILD PAIN(1-3)OR ELEVATED TEMP; Start 07/13/18 at 23:30 Hydralazine HCl (Apresoline) 20 mg Q6H PRN IV sbp over 170 Last administered on 07/14/18at 11:56; Admin Dose 20 MG; Start 07/13/18 at 23:30 Miscellaneous Information 1 ea NOTE XX ; Start 07/13/18 at 23:30 Glucose (Glutose) 15 gm Q15M PRN PO DECREASED GLUCOSE; Start 07/13/18 at 23:30 Glucose (Glutose) 22.5 gm Q15M PRN PO DECREASED GLUCOSE; Start 07/13/18 at 23:30 Dextrose (D50w Syringe) 25 ml Q15M PRN IV DECREASED GLUCOSE Last administered on 07/24/18at 08:19; Admin Dose 25 ML; Start 07/13/18 at 23:30 Dextrose (D50w Syringe) 50 ml Q15M PRN IV DECREASED GLUCOSE; Start 07/13/18 at 23:30 Glucagon (Glucagen) 1 mg Q15M PRN IM DECREASED GLUCOSE; Start 07/13/18 at 23:30 Glucose (Glutose) 15 gm Q15M PRN BUCCAL DECREASED GLUCOSE; Start 07/13/18 at 23:30 Ondansetron HCl (Zofran Inj) 4 mg Q4H PRN IV NAUSEA AND/OR VOMITING Last administered on 07/23/18at 16:30; Admin Dose 4 MG; Start 07/14/18 at 00:30 [facility]iscellaneous Information [facility] This patient easley... PRN PRN XX WOUND CARE; Start 07/14/18 at 04:30 Heparin Sodium (Porcine) (Heparin (1000 Units/ml)) 4,000 unit AFTER DIALYSIS CATHETER Last administered on 07/27/18at 20:16; Admin Dose 4,000 UNIT; Start 07/17/18 at 12:30 Diagnostic Test (Pha) (Accu-Chek) 1 ea 02 XX Last administered on 07/31/18at 01 :54; Admin Dose 1 EA; Start 07/19/18 at 02:00 IV Flush (NS 3 ml) 3 ml PER PROTOCOL IV ; Start 07/20/18 at 11:30 Calcium/Vitamin D (Oyster Shell/ Vit-D (500/200)) 1 tab BID PO Last administered on 07/31/18at 08:30; Admin Dose 1 TAB; Start 07/20/18 at 21:00 Metoprolol Tartrate (Lopressor) 5 mg Q4H PRN IV HR > 110; Hold if SBP < 100 Last administered on 07/21/18at 01:52; Admin Dose 5 MG; Start 07/21/18 at 02:00 Hydromorphone HCl (Dilaudid) 1 mg Q4H PRN IV SEVERE PAIN LEVEL 7-10 Last administered on 07/23/18at 21:37; Admin Dose 1 MG; Start 07/23/18 at 22:00 Metoclopramide HCl (Reglan) 10 mg Q6H PRN IV NAUSEA AND/OR VOMITING Last administered on 07/26/18at 22:31; Admin Dose 10 MG; Start 07/23/18 at 20:30 Norepinephrine 250 ml @ 1.875 mls/ hr TITRATE IV Last administered on 07/29/18 01:20; Admin Dose 3.75 MLS/HR; Start 07/24/18 at 11:00 Collagenase (Santyl) 1 applic DAILY TOP Last administered on 07/31/18 08:33; Admin Dose 1 APPLIC; Start 07/25/18 at 09:00 Phenylephrine HCl 80 mg/Dextrose 250 ml @ 18.75 mls/ hr TITRATE IV Last administered on 07/31/18 12:18; Admin Dose 31.88 MLS/HR; Start 07/24/18 at 20:30 Insulin Aspart (Novolog Insulin Pen) NOVOLOG *MILD* ALGORI... Q4 SC Last adm inistered on 07/31/18 12:12; Admin Dose 3 UNIT; Start 07/24/18 at 21:00 Propofol 100 ml @ 1.851 mls/ hr Q12H IV Last administered on 07/28/18 20:30; Admin Dose 5.553 MLS/HR; Start 07/25/18 at 13:00 Fentanyl 100 ml @ 2.5 mls/hr TITRATE IV Last administered on 07/30/18 06:29; Admin Dose 10 MLS/HR; Start 07/26/18 at 11:00 Metoclopramide HCl (Reglan) 5 mg Q6 IV Last administered on 07/31/18 12:01; Admin Dose 5 MG; Start 07/27/18 at 18:00 Levothyroxine Sodium (Synthroid Iv) 50 mcg DAILY@06 IV Last administered on 07/31/18 05:22; Admin Dose 50 MCG; Start 07/28/18 at 06:00 Vancomycin HCl (Vanco Iv Per Pharmacy) VANCOMYCIN PER PHARMACY PER PROTOCOL XX ; Start 07/28/18 at 10:30 Cefepime HCl 50 ml @ 100 mls/hr Q24H IVPB Last administered on 07/31/18 12:02; Admin Dose 100 MLS/HR; Start 07/30/18 at 12:00 Lansoprazole (Prevacid) 30 mg BID@0600,1800 PO Last administered on 07/31/18 05:22; Admin Dose 30 MG; Start 07/30/18 at 18:00 Aspirin (Aspirin) 81 mg DAILY PO Last administered on 07/31/18at 08:30; Admin Dose 81 MG; Start 07/30/18 at 11:30 Atorvastatin Calcium (Lipitor) 20 mg HS PO Last administered on 07/30/18at 21:28; Admin Dose 20 MG; Start 07/30/18 at 21:00 Midodrine (Proamatine) 10 mg TID@09,13,17 PO Last administered on 07/30/18at 13:19; Admin Dose 10 MG; Start 07/30/18 at 13:00 Hydrocortisone (Solu-Cortef) 25 mg DAILY IV Last administered on 07/31/18at 08:27; Admin Dose 25 MG; Start 07/31/18 at 09:00 Insulin Glargine (Lantus) 15 units DAILY@0800 SC Last administered on 07/31/18at 09:33; Admin Dose 15 UNITS; Start 07/31/18 at 09:00 Miscellaneous Information (*Rx Drug Level Order Reminder*) VANCO RANDOM W/ AM LABS... ONCE ONCE XX ; Start 08/01/18 at 05:00; Stop 08/01/18 at 05:01 Assessment/Plan Hospital Course (Demo Recall) IMPRESSION 1. Cardiopulmonary arrest. Prolonged CPR with ACLS protocol. Significant encephalopathy 2. Multiple cardiopulmonary arrests and prolonged hypotension, despite this patient seems to be somewhat neurologically intact. 3. End-stage renal failure on hemodialysis. 4. Possible aspiration pneumonia. Septic shock. Requiring vasopressor support, increasing pressor requirements 5. History of severe peripheral vascular disease. 6. Possible acute GI bleed given acute drop in hemoglobin prior to cardiac arrest 7. refractory septic shock Plan 1. Vasopressor support as needed. 2. Mechanical ventilation currently not stable for CPAP trials. Unlikely to be liberated from mechanical ventilation 3. Broad-spectrum antibiotic coverage for possible aspiration. 4. GI recommendations 5. DVT and GI prophylaxis. Critical care time 40 minutes. Prognosis guarded. Family conference regarding goals of care. Very poor prognosis. DEVAN MIDDLETON MD, [facility] Jul 31, 2018 14:22
--- NOTE | 2018-07-31 14:31 | CONS ---
Assessment/Plan Assessment/Plan Assessment/Plan (Daily) 1. Anemia, rule out gastrointestinal bleeding. -concern for GI bleed due to drop in H/H prior to cardiac arrest. -per RN bm was brown with potentially old melena, no active bleeding 2. Status post pulseless electrical activity period and cardiac arrest. 3. Ventilator-dependent respiratory failure. 4. End-stage renal disease, on dialysis. 5. 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 6. Left stump bruises. 7. Ankle fracture. 8. Cirrhosis of liver 9. Gastroparesis 10 bilateral cerebellar infarct Plan Family spoke with Dr. Hernandez, chemical code only. Monitor HH and replace as necessary. Anemia work up, FOB pending. Iron and TIBC low, ferritin folate b 12 pending Continue present care Continue tube feeds as tolerated Aspiration precautions Patient is unstable for any endoscopy procedures and there is no active GI bleeding at this point Continue on lactulose and Reglan and PPI BID. Consultation Date/Type/Reason Admit Date/Time Jul 13, 2018 at 21:32 Initial Consult Date Requesting Provider: ADAM HERNANDEZ MD Date/Time of Note DATE: 07/31/18 TIME: 14:30 24 HR Interval Summary Free Text/Dictation No bleeding noted., Patient is tolerating feeding Subjective hx not possible: pt non-verbal, pt critical Exam/Review of Systems Exam Vitals Vital Signs Date Temp Pulse Resp B/P (MAP) Pulse Ox O2 O2 Flow FiO2 Time Delivery Rate 07/31/18 85 21 98 40 13:27 07/31/18 124/37 12:30 (66) 07/31/18 98.7 12:00 07/31/18 Mechanical 11:30 Ventilator Intake and Output 07/30/18 07/30/18 07/31/18 1414:59 22:59 06:59 IntakeIntake Total 1165.01 ml 794.25 ml 699.75 ml OutputOutput Total 0 ml 210 ml 10 ml BalanceBalance 1165.01 ml 584.25 ml 689.75 ml Eyes: nl conjunctiva, EOMI, nl lids, nl sclera, PERRL Respiratory: diminished breath sounds Cardiovascular: regular rate and rhythm, nl pulses Gastrointestinal: soft, nl liver, spleen, non-tender Musculoskeletal: nl extremities to inspection, nl gait and stance Extremities: normal pulses Results Result Diagram: 07/31/18 0400 07/31/18 0400 Results 24hrs Laboratory Tests Test 07/30/18 17:55 07/30/18 21:27 07/30/18 23:59 07/31/18 04:00 Bedside Glucose 260 H 167 208 White Blood Count 19.1 H Red Blood Count 2.63 L Hemoglobin 8.6 L Hematocrit 24.9 L Mean Corpuscular 94.7 Volume Mean Corpuscular 32.7 Hemoglobin Mean Corpuscular 34.5 Hemoglobin Concent Red Cell 19.2 H Distribution Width Platelet Count 102 L Mean Platelet Volume 12.1 H Immature 1.200 H Granulocytes % Neutrophils % Segmented 76 Neutrophils % (Manual) Band Neutrophils % 17 H (Manual) Lymphocytes % Reactive Lymphocytes 1 H % (Manual) Monocytes % Monocytes % (Manual) 3 Eosinophils % Basophils % Basophils % (Manual) 2 Promyelocytes % 1 H (Manual) Nucleated Red Blood 0.3 H Cells % Immature 0.230 H Granulocytes # Neutrophils # Neutrophils # 15.1 H (Manual) Band Neutrophils # 3.2 H Lymphocytes # Reactive Lymphocytes 0.1 H # Monocytes # Monocytes # (Manual) 0.5 Eosinophils # Basophils # Basophils # (Manual) 0.3 H Promyelocytes # 0.1 H Nucleated Red Blood Cells # Platelet Estimate DECREASED Giant Platelets 7 H Poikilocytosis 2+ Anisocytosis 2+ Macrocytosis 2+ Sodium Level 130 L Potassium Level 3.2 L Chloride Level 93 L Carbon Dioxide Level 25 Anion Gap 12 Blood Urea Nitrogen 21 H Creatinine 1.79 H Est Glomerular Filtrat Rate mL/min Glucose Level 190 Calcium Level 7.4 L Phosphorus Level 1.4 #L Magnesium Level 1.7 Test 07/31/18 04:35 07/31/18 08:41 07/31/18 12:01 Bedside Glucose 202 227 H 234 H Medications Medication Current Medications Multivit/Ca Carb/ B Cmplx/FA/Prenat (Shyann-Raj) 1 tab DAILY PO Last administered on 07/31/18at 08:30; Admin Dose 1 TAB; Start 07/14/18 at 09:00 Tramadol HCl (Ultram) 50 mg TID PRN PO PAIN LEVEL 6-10 Last administered on 07/24/18at 03:35; Admin Dose 50 MG; Start 07/13/18 at 23:30 Acetaminophen (Tylenol Tab) 650 mg Q6H PRN PO MILD PAIN(1-3)OR ELEVATED TEMP; Start 07/13/18 at 23:30 Hydralazine HCl (Apresoline) 20 mg Q6H PRN IV sbp over 170 Last administered on 07/14/18at 11:56; Admin Dose 20 MG; Start 07/13/18 at 23:30 Miscellaneous Information 1 ea NOTE XX ; Start 07/13/18 at 23:30 Glucose (Glutose) 15 gm Q15M PRN PO DECREASED GLUCOSE; Start 07/13/18 at 23:30 Glucose (Glutose) 22.5 gm Q15M PRN PO DECREASED GLUCOSE; Start 07/13/18 at 23:30 Dextrose (D50w Syringe) 25 ml Q15M PRN IV DECREASED GLUCOSE Last administered on 07/24/18at 08:19; Admin Dose 25 ML; Start 07/13/18 at 23:30 Dextrose (D50w Syringe) 50 ml Q15M PRN IV DECREASED GLUCOSE; Start 07/13/18 at 23:30 Glucagon (Glucagen) 1 mg Q15M PRN IM DECREASED GLUCOSE; Start 07/13/18 at 23:30 Glucose (Glutose) 15 gm Q15M PRN BUCCAL DECREASED GLUCOSE; Start 07/13/18 at 23:30 Ondansetron HCl (Zofran Inj) 4 mg Q4H PRN IV NAUSEA AND/OR VOMITING Last administered on 07/23/18at 16:30; Admin Dose 4 MG; Start 07/14/18 at 00:30 Miscellaneous Information [facility] This patient easley... PRN PRN XX WOUND CARE; Start 07/14/18 at 04:30 Heparin Sodium (Porcine) (Heparin (1000 Units/ml)) 4,000 unit AFTER DIALYSIS CATHETER Last administered on 07/27/18at 20:16; Admin Dose 4,000 UNIT; Start 07/17/18 at 12:30 Diagnostic Test (Pha) (Accu-Chek) 1 ea 02 XX Last administered on 07/31/18at 01:54; Admin Dose 1 EA; Start 07/19/18 at 02:00 IV Flush (NS 3 ml) 3 ml PER PROTOCOL IV ; Start 07/20/18 at 11:30 Calcium/Vitamin D (Oyster Shell/ Vit-D (500/200)) 1 tab BID PO Last administered on 07/31/18 08:30; Admin Dose 1 TAB; Start 07/20/18 at 21:00 Metoprolol Tartrate (Lopressor) 5 mg Q4H PRN IV HR > 110; Hold if SBP < 100 Las t administered on 07/21/18 01:52; Admin Dose 5 MG; Start 07/21/18 at 02:00 Hydromorphone HCl (Dilaudid) 1 mg Q4H PRN IV SEVERE PAIN LEVEL 7-10 Last administered on 07/23/18 21:37; Admin Dose 1 MG; Start 07/23/18 at 22:00 Metoclopramide HCl (Reglan) 10 mg Q6H PRN IV NAUSEA AND/OR VOMITING Last ad ministered on 07/26/18 22:31; Admin Dose 10 MG; Start 07/23/18 at 20:30 Norepinephrine 250 ml @ 1.875 mls/ hr TITRATE IV Last administered on 07/29/18 01:20; Admin Dose 3.75 MLS/HR; Start 07/24/18 at 11:00 Collagenase (Santyl) 1 applic DAILY TOP Last administered on 07/31/18 08:33; Admin Dose 1 APPLIC; Start 07/25/18 at 09:00 Phenylephrine HCl 80 mg/Dextrose 250 ml @ 18.75 mls/ hr TITRATE IV Last administered on 07/31/18 12:18; Admin Dose 31.88 MLS/HR; Start 07/24/18 at 20:30 Insulin Aspart (Novolog Insulin Pen) NOVOLOG *MILD* ALGORI... Q4 SC Last administered on 07/31/18 12:12; Admin Dose 3 UNIT; Start 07/24/18 at 21:00 Propofol 100 ml @ 1.851 mls/ hr Q12H IV Last administered on 07/28/18 20:30; Admin Dose 5.553 MLS/HR; Start 07/25/18 at 13:00 Fentanyl 100 ml @ 2.5 mls/hr TITRATE IV Last administered on 07/30/18 06:29; Admin Dose 10 MLS/HR; Start 07/26/18 at 11:00 Metoclopramide HCl (Reglan) 5 mg Q6 IV Last administered on 07/31/18 12:01; Admin Dose 5 MG; Start 07/27/18 at 18:00 Levothyroxine Sodium (Synthroid Iv) 50 mcg DAILY@06 IV Last administered on 07/31/18at 05:22; Admin Dose 50 MCG; Start 07/28/18 at 06:00 Vancomycin HCl (Vanco Iv Per Pharmacy) VANCOMYCIN PER PHARMACY PER PROTOCOL XX ; Start 07/28/18 at 10:30 Cefepime HCl 50 ml @ 100 mls/hr Q24H IVPB Last administered on 07/31/18at 12:02; Admin Dose 100 MLS/HR; Start 07/30/18 at 12:00 Lansoprazole (Prevacid) 30 mg BID@0600,1800 PO Last administered on 07/31/18at 05:22; Admin Dose 30 MG; Start 07/30/18 at 18:00 Aspirin (Aspirin) 81 mg DAILY PO Last administered on 07/31/18at 08:30; Admin Dose 81 MG; Start 07/30/18 at 11:30 Atorvastatin Calcium (Lipitor) 20 mg HS PO Last administered on 07/30/18at 21:28; Admin Dose 20 MG; Start 07/30/18 at 21:00 Midodrine (Proamatine) 10 mg TID@09,13,17 PO Last administered on 07/30/18at 13:19; Admin Dose 10 MG; Start 07/30/18 at 13:00 Hydrocortisone (Solu-Cortef) 25 mg DAILY IV Last administered on 07/31/18at 08:27; Admin Dose 25 MG; Start 07/31/18 at 09:00 Insulin Glargine (Lantus) 15 units DAILY@0800 SC Last administered on 07/31/18at 09:33; Admin Dose 15 UNITS; Start 07/31/18 at 09:00 Miscellaneous Information (*Rx Drug Level Order Reminder*) VANCO RANDOM W/ AM LABS... ONCE ONCE XX ; Start 08/01/18 at 05:00; Stop 08/01/18 at 05:01 GLORIA TURNER MD Jul 31, 2018 14:31
[2018-07-31] MEDS: FENTAnyl (DRIP) 1000 mcg/100mL 100 ML IV SCH (14:41)
[2018-07-31] MEDS ORDERED: MAGNESIUM SULFATE 2 GM/50 ML 50 ML IVPB ONE (19:00)
[2018-07-31] MEDS: ATORVASTATIN 20 MG TAB PO SCH (20:14)
[2018-08-01] VITALS (113 sets, daily range): BP systolic 54–154; BP diastolic 26–125; PULSE 68–104; RESP 12–32
[2018-08-01] MEDS: INSULIN ASPART [NOVOLOG] 3 ML PEN SC SCH ×6 (00:52→20:41)
[2018-08-01] MEDS: ACCU-CHEK XX SCH (01:09)
[2018-08-01] MEDS: PHENYLephrine 80 MG in DEXTROSE 5% 242 ML IV SCH ×2 (02:39→21:02)
[2018-08-01] MEDS: LEVOTHYROXINE 100 MCG VIAL IV SCH (05:09)
[2018-08-01] MEDS: LANSOPRAZOLE 30 MG CAP PO SCH ×2 (05:09→17:00)
[2018-08-01] MEDS: METOCLOPRAMIDE 10 MG INJ IV SCH ×3 (05:09→17:00)
[2018-08-01] MEDS: MULTIVIT/CA CARB/B CMPLX/FA TAB PO SCH (09:00)
[2018-08-01] MEDS: ASPIRIN 81 MG TAB PO SCH (09:00)
[2018-08-01] MEDS: MIDODRINE 5 MG TAB PO SCH ×3 (09:00→16:56)
[2018-08-01] MEDS: CALCIUM/VITAMIN D (500/200) TAB PO SCH ×2 (09:00→20:11)
[2018-08-01] MEDS ORDERED: VANCOMYCIN 1 GM 250 ML IVPB SCH (09:00)
[2018-08-01] MEDS: BALSAM PERU/CASTOR OIL 60 GM TUBE TOP SCH ×2 (09:23→22:01)
[2018-08-01] MEDS: HYDROCORTISONE 100 MG INJ IV SCH (09:23)
[2018-08-01] MEDS: COLLAGENASE 5 GM (UD JAR) TOP SCH (09:23)
[2018-08-01] MEDS: INSULIN GLARGINE [LANTus] (100 UNITS/ML) SYG SC SCH (09:25)
--- NOTE | 2018-08-01 09:46 | PN ---
Date/Time of Note Date/Time of Note DATE: 08/01/18 TIME: 09:46 Assessment/Plan VTE Prophylaxis Risk score (from Nsg)>0 risk: 20 SCD applied (from Nsg): No Lines/Catheters IV Catheter Type (from Nrsg): A Line Urinary Cath still in place: Yes Assessment/Plan Hospital Course 78 y/o with IMPRESSION: # Cardiac pulmonary arrest s/p vfib # Respiratory failure s/p intubation # Hypotension s/p shock? cardiac vs hypovolemic/septic #LE me anemia likely to secondary to GI bleed H&H stable status post unit 2 units of blood # Hyperkalemia due to missed hemodialysis.due to fall # Acute comminuted fractures of the distal tibia and fibula that involve the distal tibiofibular joint. Distal tibia fracture extends to within 0.3 cm of the tibial plafond but does not involve the articular surface. The appearance is in keeping with an extra-articular Pilon fracture. #. Hyponatremia. resolved #. Metabolic acidosis. # Cardiomegaly and pulmonary edema. #. Aortic atherosclerosis. #. History of congestive heart failure. # History of diabetic retinopathy, nephropathy. #. Hypoalbuminemia. # The patient has right lower extremity brace.with fracture #. Left stump bruise now noticed to have a fracture on the left hip on the x- rays # ? AFIB. # Congestive heart failure by x-ray, question systolic versus diastolic, likely acute on chronic given presentation. # elevated troponin in the setting of end-stage kidney disease # Epigastric pain r/o gastritis/ GB disease> CT scan was pending # elevated troponin in the setting of cardiac arrest downtrending # Leukocytosis # AMS ? sedation vs s/p cpr arrest with encephalopathy , now with new cerebellar infarcts Plan - MRI Of the brain pending too unstable - Seen by neurology > poor prognosis - cw Low-dose aspirin statins/statin - Hd today tmw - increase lantus - try to decrease sedation and assess mental status - f/u midodrine with parametes anddec hydrocortisone - cw vancomycin/cefepime - replete lytes -Feeding as tolerated - Hb stable , no evidence of bleeding -Dr. [place] was also called for fracture of the left hip> intervention currently as patient is unstable -Hold anticoagulation due to bleeding - fu cardiac/pul recs Overall porr prognosis> will talk to family again today Is chemical code now however overall prognosis is guarded will wait for neurology recommendations Result Diagram: 08/01/18 0300 08/01/18 0300 Results 24hrs Laboratory Tests Test 07/31/18 12:01 07/31/18 16:57 07/31/18 20:14 08/01/18 00:49 Bedside Glucose 234 H 235 H 230 H 162 Test 08/01/18 03:00 08/01/18 04:19 08/01/18 05:00 08/01/18 09:11 White Blood Count 18.4 H Red Blood Count 2.76 L Hemoglobin 8.7 L Hematocrit 26.0 L Mean Corpuscular 94.2 Volume Mean Corpuscular 31.5 Hemoglobin Mean Corpuscular 33.5 Hemoglobin Concent Red Cell 20.1 H Distribution Width Platelet Count 117 L Mean Platelet Volume 12.3 H Immature 1.200 H Granulocytes % Neutrophils % 90.4 H Lymphocytes % 4.4 L Monocytes % 3.5 Eosinophils % 0.2 Basophils % 0.3 Nucleated Red Blood 0.2 H Cells % Immature 0.220 H Granulocytes # Neutrophils # 16.6 H Lymphocytes # 0.8 Monocytes # 0.6 Eosinophils # 0.0 Basophils # 0.1 Nucleated Red Blood 0.0 Cells # Sodium Level 129 L Potassium Level 3.6 Chloride Level 96 L Carbon Dioxide Level 24 Anion Gap 9 Blood Urea Nitrogen 31 H Creatinine 2.03 H Est Glomerular Filtrat Rate mL/min Glucose Level 148 # Calcium Level 7.6 L Phosphorus Level 2.9 Magnesium Level 2.3 Random Vancomycin 10.2 Level Bedside Glucose 191 213 Stool Occult Blood POSITIVE Exam/Review of Systems Exam Vitals Vital Signs Date Temp Pulse Resp B/P (MAP) Pulse Ox O2 O2 Flow FiO2 Time Delivery Rate 08/01/18 91 08:00 08/01/18 16 107/75 98 Mechanical 06:00 (86) Ventilator 08/01/18 40 05:38 08/01/18 97.8 04:00 Intake and Output 07/31/18 07/31/18 08/01/18 1515:00 23:00 07:00 IntakeIntake Total 909.27 ml 266.38 ml 471.76 ml OutputOutput Total 2 ml 5 ml 0 ml BalanceBalance 907.27 ml 261.38 ml 471.76 ml Results Results 24hrs Laboratory Tests Test 07/31/18 12:01 07/31/18 16:57 07/31/18 20:14 08/01/18 00:49 Bedside Glucose 234 H 235 H 230 H 162 Test 08/01/18 03:00 08/01/18 04:19 08/01/18 05:00 08/01/18 09:11 White Blood Count 18.4 H Red Blood Count 2.76 L Hemoglobin 8.7 L Hematocrit 26.0 L Mean Corpuscular 94.2 Volume Mean Corpuscular 31.5 Hemoglobin Mean Corpuscular 33.5 Hemoglobin Concent Red Cell 20.1 H Distribution Width Platelet Count 117 L Mean Platelet Volume 12.3 H Immature 1.200 H Granulocytes % Neutrophils % 90.4 H Lymphocytes % 4.4 L Monocytes % 3.5 Eosinophils % 0.2 Basophils % 0.3 Nucleated Red Blood 0.2 H Cells % Immature 0.220 H Granulocytes # Neutrophils # 16.6 H Lymphocytes # 0.8 Monocytes # 0.6 Eosinophils # 0.0 Basophils # 0.1 Nucleated Red Blood 0.0 Cells # Sodium Level 129 L Potassium Level 3.6 Chloride Level 96 L Carbon Dioxide Level 24 Anion Gap 9 Blood Urea Nitrogen 31 H Creatinine 2.03 H Est Glomerular Filtrat Rate mL/min Glucose Level 148 # Calcium Level 7.6 L Phosphorus Level 2.9 Magnesium Level 2.3 Random Vancomycin 10.2 Level Bedside Glucose 191 213 Stool Occult Blood POSITIVE Medications Medication Current Medications Multivit/Ca Carb/ B Cmplx/FA/Prenat (Shyann-Raj) 1 tab DAILY PO Last administered on 07/31/18at 08:30; Admin Dose 1 TAB; Start 07/14/18 at 09:00 Tramadol HCl (Ultram) 50 mg TID PRN PO PAIN LEVEL 6-10 Last administered on 07/24/18at 03:35; Admin Dose 50 MG; Start 07/13/18 at 23:30 Acetaminophen (Tylenol Tab) 650 mg Q6H PRN PO MILD PAIN(1-3)OR ELEVATED TEMP; Start 07/13/18 at 23:30 Hydralazine HCl (Apresoline) 20 mg Q6H PRN IV sbp over 170 Last administered on 07/14/18at 11:56; Admin Dose 20 MG; Start 07/13/18 at 23:30 Miscellaneous Information 1 ea NOTE XX ; Start 07/13/18 at 23:30 Glucose (Glutose) 15 gm Q15M PRN PO DECREASED GLUCOSE; Start 07/13/18 at 23:30 Glucose (Glutose) 22.5 gm Q15M PRN PO DECREASED GLUCOSE; Start 07/13/18 at 23:30 Dextrose (D50w Syringe) 25 ml Q15M PRN IV DECREASED GLUCOSE Last administered on 07/24/18at 08:19; Admin Dose 25 ML; Start 07/13/18 at 23:30 Dextrose (D50w Syringe) 50 ml Q15M PRN IV DECREASED GLUCOSE; Start 07/13/18 at 23:30 Glucagon (Glucagen) 1 mg Q15M PRN IM DECREASED GLUCOSE; Start 07/13/18 at 23:30 Glucose (Glutose) 15 gm Q15M PRN BUCCAL DECREASED GLUCOSE; Start 07/13/18 at 23:30 Ondansetron HCl (Zofran Inj) 4 mg Q4H PRN IV NAUSEA AND/OR VOMITING Last administered on 07/23/18at 16:30; Admin Dose 4 MG; Start 07/14/18 at 00:30 Miscellaneous Information (Pending [facility] Order For Wound Care) This patient easley... PRN PRN XX WOUND CARE; Start 07/14/18 at 04:30 Heparin Sodium (Porcine) (Heparin (1000 Units/ml)) 4,000 unit AFTER DIALYSIS CATHETER Last administered on 07/27/18at 20:16; Admin Dose 4,000 UNIT; Start 07/17/18 at 12:30 Diagnostic Test (Pha) (Accu-Chek) 1 ea 02 XX Last administered on 07/31/18at 01:54; Admin Dose 1 EA; Start 07/19/18 at 02:00 IV Flush (NS 3 ml) 3 ml PER PROTOCOL IV ; Start 07/20/18 at 11:30 Calcium/Vitamin D (Oyster Shell/ Vit-D (500/200)) 1 tab BID PO Last administered on 07/31/18at 20:14; Admin Dose 1 TAB; Start 07/20/18 at 21:00 Metoprolol Tartrate (Lopressor) 5 mg Q4H PRN IV HR > 110; Hold if SBP < 100 Last administered on 07/21/18at 01:52; Admin Dose 5 MG; Start 07/21/18 at 02:00 Hydromorphone HCl (Dilaudid) 1 mg Q4H PRN IV SEVERE PAIN LEVEL 7-10 Last administered on 07/23/18 21:37; Admin Dose 1 MG; Start 07/23/18 at 22:00 Metoclopramide HCl (Reglan) 10 mg Q6H PRN IV NAUSEA AND/OR VOMITING Last administered on 07/26/18 22:31; Admin Dose 10 MG; Start 07/23/18 at 20:30 Norepinephrine 250 ml @ 1.875 mls/ hr TITRATE IV Last administered on 07/29/18 01:20; Admin Dose 3.75 MLS/HR; Start 07/24/18 at 11:00 Collagenase (Santyl) 1 applic DAILY TOP Last administered on 08/01/18 09:23; Admin Dose 1 APPLIC; Start 07/25/18 at 09:00 Phenylephrine HCl 80 mg/Dextrose 250 ml @ 18.75 mls/ hr TITRATE IV Last administered on 08/01/18 02:39; Admin Dose 15 MLS/HR; Start 07/24/18 at 20:30 Insulin Aspart (Novolog Insulin Pen) NOVOLOG *MILD* ALGORI... Q4 SC Last administered on 08/01/18 09:19; Admin Dose 2 UNIT; Start 07/24/18 at 21:00 Propofol 100 ml @ 1.851 mls/ hr Q12H IV Last administered on 07/28/18 20:30; Admin Dose 5.553 MLS/HR; Start 07/25/18 at 13:00 Fentanyl 100 ml @ 2.5 mls/hr TITRATE IV Last administered on 07/31/18 14:41; Admin Dose 2.5 MLS/HR; Start 07/26/18 at 11:00 Metoclopramide HCl (Reglan) 5 mg Q6 IV Last administered on 08/01/18 05:09; Admin Dose 5 MG; Start 07/27/18 at 18:00 Levothyroxine Sodium (Synthroid Iv) 50 mcg DAILY@06 IV Last administered on 08/01/18 05:09; Admin Dose 50 MCG; Start 07/28/18 at 06:00 Vancomycin HCl (Vanco Iv Per Pharmacy) VANCOMYCIN PER PHARMACY PER PROTOCOL XX ; Start 07/28/18 at 10:30 Cefepime HCl 50 ml @ 100 mls/hr Q24H IVPB Last administered on 07/31/18 12:02; Admin Dose 100 MLS/HR; Start 07/30/18 at 12:00 Lansoprazole (Prevacid) 30 mg BID@0600,1800 PO Last administered on 08/01/18 05:09; Admin Dose 30 MG; Start 07/30/18 at 18:00 Aspirin (Aspirin) 81 mg DAILY PO Last administered on 07/31/18 08:30; Admin Dose 81 MG; Start 07/30/18 at 11:30 Atorvastatin Calcium (Lipitor) 20 mg HS PO Last administered on 07/31/18 20:14; Admin Dose 20 MG; Start 07/30/18 at 21:00 Midodrine (Proamatine) 10 mg TID@09,13,17 PO Last administered on 07/30/18 13:19; Admin Dose 10 MG; Start 07/30/18 at 13:00 Hydrocortisone (Solu-Cortef) 25 mg DAILY IV Last administered on 08/01/18 09:23; Admin Dose 25 MG; Start 07/31/18 at 09:00 Insulin Glargine (Lantus) 15 units DAILY@0800 SC Last administered on 08/01/18 09:25; Admin Dose 15 UNITS; Start 07/31/18 at 09:00 Vancomycin HCl 250 ml @ 125 mls/hr ONCE IVPB Last administered on 08/01/18 09:23; Admin Dose 125 MLS/HR; Start 08/01/18 at 09:00; Stop 08/01/18 at 10:59 ADAM DUARTE MD Aug 01, 2018 09:46
--- NOTE | 2018-08-01 11:03 | CONS ---
Assessment/Plan Assessment/Plan Hospital Course (Demo Recall) IMP: 1. Preoperative for LE ORIF-NL EF by echo with mod-sev TR. Lexiscan with NL EF and partially reversible inferior wall defect. Thus patient has no cardiac contraindication to proceeding to OR on current medications but at moderate to high risk. Now post-op s/p ORIF 2.Positive troponin 3.BRadycardia to 40's/stable BP. S Misael- now improved with decrease in dose of clonidine and having short runs of tachycardia/SVT. ? Now in AF s/p code yesterday 4.HTN-uncontrolled at this time 5.ankle fracture 6.ESRD on HD 7. TR-mod-sev 8. ? sick euthyroid-elevated TSH and Free t4 9. Patient with PEA and VFA this am requiring ACLS and intubation protocol on onset during HD 10. anemia-acute drop. ? where bleeding,internal given abd pain. Now s/p transfusion PRBC's/possible melena overnight 11.PAF- in AF at this time. Reasonable rates on amiodarone 12. Nstemi- downtrending cardiac enzymes significantly 14. hypotension-on jake- s/p repeat echo 07/29 with EF slightly lower but still wnl 50% 15. UTI Recc -ICU -Continue Jake with weaning as tolerated -continue vent support -Continue ASA as tolerated. Not on systemic anticoagulation secondary to anemia/GIB -transfuse PRBC's as necessary -HD as tolearted only, ongoing now -trend cardiac enzymes -Contineu abx's and f/u cx data Consultation Date/Type/Reason Admit Date/Time Jul 13, 2018 at 21:32 Initial Consult Date 07/16/18 Type of Consult Cardiology Reason for Consultation Nstemi Requesting Provider: ADAM DUARTE MD Date/Time of Note DATE: 08/01/18 TIME: 10:58 Exam/Review of Systems Vital Signs Vitals Vital Signs Date Temp Pulse Resp B/P (MAP) Pulse Ox O2 O2 Flow FiO2 Time Delivery Rate 08/01/18 91 08:00 08/01/18 16 107/75 98 Mechanical 06:00 (86) Ventilator 08/01/18 40 05:38 08/01/18 97.8 04:00 Intake and Output 07/31/18 07/31/18 08/01/18 1515:00 23:00 07:00 IntakeIntake Total 909.27 ml 266.38 ml 471.76 ml OutputOutput Total 2 ml 5 ml 0 ml BalanceBalance 907.27 ml 261.38 ml 471.76 ml Exam Exam Review of Systems: CONSTITUTIONAL: No fevers, chills. PULMONARY: No sob CARDIOVASCULAR: No chest pain/palpitations GASTROINTESTINAL: No nausea/vomiting. GENITOURINARY: No hematuria/dysuria. MUSCULOSKELETAL: No myagias/arthalgias. PSYCHIATRIC: The patient denies depression. NEUROLOGIC: No weakness Constitutional: alert Psych: no complaints Head: normocephalic ENMT: mucosa pink and moist Neck: supple, jvd (9 cm water) Respiratory: diminished breath sounds Cardiovascular: regular rate and rhythm Gastrointestinal: soft, non-tender Musculoskeletal: muscle tone (normal) Extremities: edema (trace/B) Neurological: other (No focal deficits) Labs Result Diagram: 08/01/18 0300 08/01/18 0300 Results 24hrs Laboratory Tests Test 07/31/18 12:01 07/31/18 16:57 07/31/18 20:14 08/01/18 00:49 Bedside Glucose 234 H 235 H 230 H 162 Test 08/01/18 03:00 08/01/18 04:19 08/01/18 05:00 08/01/18 09:11 White Blood Count 18.4 H Red Blood Count 2.76 L Hemoglobin 8.7 L Hematocrit 26.0 L Mean Corpuscular 94.2 Volume Mean Corpuscular 31.5 Hemoglobin Mean Corpuscular 33.5 Hemoglobin Concent Red Cell 20.1 H Distribution Width Platelet Count 117 L Mean Platelet Volume 12.3 H Immature 1.200 H Granulocytes % Neutrophils % 90.4 H Lymphocytes % 4.4 L Monocytes % 3.5 Eosinophils % 0.2 Basophils % 0.3 Nucleated Red Blood 0.2 H Cells % Immature 0.220 H Granulocytes # Neutrophils # 16.6 H Lymphocytes # 0.8 Monocytes # 0.6 Eosinophils # 0.0 Basophils # 0.1 Nucleated Red Blood 0.0 Cells # Sodium Level 129 L Potassium Level 3.6 Chloride Level 96 L Carbon Dioxide Level 24 Anion Gap 9 Blood Urea Nitrogen 31 H Creatinine 2.03 H Est Glomerular Filtrat Rate mL/min Glucose Level 148 # Calcium Level 7.6 L Phosphorus Level 2.9 Magnesium Level 2.3 Random Vancomycin 10.2 Level Bedside Glucose 191 213 Stool Occult Blood POSITIVE Medications Medications Current Medications Multivit/Ca Carb/ B Cmplx/FA/Prenat (Shyann-Raj) 1 tab DAILY PO Last administered on 07/31/18at 08:30; Admin Dose 1 TAB; Start 07/14/18 at 09:00 Tramadol HCl (Ultram) 50 mg TID PRN PO PAIN LEVEL 6-10 Last administered on 07/24/18at 03:35; Admin Dose 50 MG; Start 07/13/18 at 23:30 Acetaminophen (Tylenol Tab) 650 mg Q6H PRN PO MILD PAIN(1-3)OR ELEVATED TEMP; Start 07/13/18 at 23:30 Hydralazine HCl (Apresoline) 20 mg Q6H PRN IV sbp over 170 Last administered on 07/14/18at 11:56; Admin Dose 20 MG; Start 07/13/18 at 23:30 Miscellaneous Information 1 ea NOTE XX ; Start 07/13/18 at 23:30 Glucose (Glutose) 15 gm Q15M PRN PO DECREASED GLUCOSE; Start 07/13/18 at 23:30 Glucose (Glutose) 22.5 gm Q15M PRN PO DECREASED GLUCOSE; Start 07/13/18 at 23:30 Dextrose (D50w Syringe) 25 ml Q15M PRN IV DECREASED GLUCOSE Last administered on 07/24/18at 08:19; Admin Dose 25 ML; Start 07/13/18 at 23:30 Dextrose (D50w Syringe) 50 ml Q15M PRN IV DECREASED GLUCOSE; Start 07/13/18 at 23:30 Glucagon (Glucagen) 1 mg Q15M PRN IM DECREASED GLUCOSE; Start 07/13/18 at 23:30 Glucose (Glutose) 15 gm Q15M PRN BUCCAL DECREASED GLUCOSE; Start 07/13/18 at 23:30 Ondansetron HCl (Zofran Inj) 4 mg Q4H PRN IV NAUSEA AND/OR VOMITING Last administered on 07/23/18at 16:30; Admin Dose 4 MG; Start 07/14/18 at 00:30 Miscellaneous [facility] This patient easley... PRN PRN XX WOUND CARE; Start 07/14/18 at 04:30 Heparin Sodium (Porcine) (Heparin (1000 Units/ml)) 4,000 unit AFTER DIALYSIS CATHETER Last administered on 07/27/18 20:16; Admin Dose 4,000 UNIT; Start 07/17/18 at 12:30 Diagnostic Test (Pha) (Accu-Chek) 1 ea 02 XX Last administered on 07/31/18 01:54; Admin Dose 1 EA; Start 07/19/18 at 02:00 IV Flush (NS 3 ml) 3 ml PER PROTOCOL IV ; Start 07/20/18 at 11:30 Calcium/Vitamin D (Oyster Shell/ Vit-D (500/200)) 1 tab BID PO Last administered on 07/31/18 20:14; Admin Dose 1 TAB; Start 07/20/18 at 21:00 Metoprolol Tartrate (Lopressor) 5 mg Q4H PRN IV HR > 110; Hold if SBP < 100 Last administered on 07/21/18 01:52; Admin Dose 5 MG; Start 07/21/18 at 02:00 Hydromorphone HCl (Dilaudid) 1 mg Q4H PRN IV SEVERE PAIN LEVEL 7-10 Last administered on 07/23/18 21:37; Admin Dose 1 MG; Start 07/23/18 at 22:00 Metoclopramide HCl (Reglan) 10 mg Q6H PRN IV NAUSEA AND/OR VOMITING Last administered on 07/26/18 22:31; Admin Dose 10 MG; Start 07/23/18 at 20:30 Norepinephrine 250 ml @ 1.875 mls/ hr TITRATE IV Last administered on 07/29/18 01:20; Admin Dose 3.75 MLS/HR; Start 07/24/18 at 11:00 Collagenase (Santyl) 1 applic DAILY TOP Last administered on 08/01/18 09:23; Admin Dose 1 APPLIC; Start 07/25/18 at 09:00 Phenylephrine HCl 80 mg/Dextrose 250 ml @ 18.75 mls/ hr TITRATE IV Last administered on 08/01/18 02:39; Admin Dose 15 MLS/HR; Start 07/24/18 at 20:30 Insulin Aspart (Novolog Insulin Pen) NOVOLOG *MILD* ALGORI... Q4 SC Last administered on 08/01/18 09:19; Admin Dose 2 UNIT; Start 07/24/18 at 21:00 Propofol 100 ml @ 1.851 mls/ hr Q12H IV Last administered on 07/28/18 20:30; Admin Dose 5.553 MLS/HR; Start 07/25/18 at 13:00 Fentanyl 100 ml @ 2.5 mls/hr TITRATE IV Last administered on 07/31/18 14:41; Admin Dose 2.5 MLS/HR; Start 07/26/18 at 11:00 Metoclopramide HCl (Reglan) 5 mg Q6 IV Last administered on 08/01/18 05:09; Admin Dose 5 MG; Start 07/27/18 at 18:00 Levothyroxine Sodium (Synthroid Iv) 50 mcg DAILY@06 IV Last administered on 08/01/18 05:09; Admin Dose 50 MCG; Start 07/28/18 at 06:00 Vancomycin HCl (Vanco Iv Per Pharmacy) VANCOMYCIN PER PHARMACY PER PROTOCOL XX ; Start 07/28/18 at 10:30 Cefepime HCl 50 ml @ 100 mls/hr Q24H IVPB Last administered on 07/31/18 12:02; Admin Dose 100 MLS/HR; Start 07/30/18 at 12:00 Lansoprazole (Prevacid) 30 mg BID@0600,1800 PO Last administered on 08/01/18 05:09; Admin Dose 30 MG; Start 07/30/18 at 18:00 Aspirin (Aspirin) 81 mg DAILY PO Last administered on 07/31/18 08:30; Admin Dose 81 MG; Start 07/30/18 at 11:30 Atorvastatin Calcium (Lipitor) 20 mg HS PO Last administered on 07/31/18 20:14; Admin Dose 20 MG; Start 07/30/18 at 21:00 Midodrine (Proamatine) 10 mg TID@09,13,17 PO Last administered on 07/30/18 13:19; Admin Dose 10 MG; Start 07/30/18 at 13:00 Hydrocortisone (Solu-Cortef) 25 mg DAILY IV Last administered on 08/01/18 09:23; Admin Dose 25 MG; Start 07/31/18 at 09:00 Insulin Glargine (Lantus) 15 units DAILY@0800 SC Last administered on 08/01/18 09:25; Admin Dose 15 UNITS; Start 07/31/18 at 09:00 Vancomycin HCl 250 ml @ 125 mls/hr ONCE IVPB Last administered on 08/01/18at 09:23; Admin Dose 125 MLS/HR; Start 08/01/18 at 09:00; Stop 08/01/18 at 10:59 JUSTICE HARRISON Aug 01, 2018 11:03
--- NOTE | 2018-08-01 11:49 | CONS ---
Consult Date/Type/Reason Admit Date/Time Jul 13, 2018 at 21:32 Initial Consult Date Type of Consult Pulmonary Requesting Provider: ADAM DUARTE MD Date/Time of Note DATE: 08/01/18 TIME: 11:48 Subjective Patient unresponsive on mechanical ventilation. Objective Vital Signs Date Temp Pulse Resp B/P (MAP) Pulse Ox O2 O2 Flow FiO2 Time Delivery Rate 08/01/18 91 11:20 08/01/18 20 107/34 98 Mechanical 10:35 (58) Ventilator 08/01/18 40 05:38 08/01/18 97.8 04:00 Intake and Output 07/31/18 07/31/18 08/01/18 1515:00 23:00 07:00 IntakeIntake Total 909.27 ml 266.38 ml 471.76 ml OutputOutput Total 2 ml 5 ml 0 ml BalanceBalance 907.27 ml 261.38 ml 471.76 ml Exam PHYSICAL EXAMINATION: GENERAL: Chronically ill appearing lady on mechanical ventilation. VITAL SIGNS: Opens eyes attempting to communicate. NECK: Supple. No JVD or lymphadenopathy. CARDIAC: S1, S2, no added sounds or murmurs. CHEST: Diminished air entry bilaterally. ABDOMEN: Soft, nontender. No guarding or rebound. EXTREMITIES: No cyanosis, clubbing or edema. NEUROLOGIC: Unable to assess. Vent Setting Ventilator Support Mode: AC Fraction of Inspired Oxygen pe: 40 Positive End Expiratory Pressu: 5.0 Results/Medications Result Diagram: 08/01/18 0300 08/01/18 0300 Results 24 hrs Laboratory Tests Test 07/31/18 12:01 07/31/18 16:57 07/31/18 20:14 08/01/18 00:49 Bedside Glucose 234 H 235 H 230 H 162 Test 08/01/18 03:00 08/01/18 04:19 08/01/18 05:00 08/01/18 09:11 White Blood Count 18.4 H Red Blood Count 2.76 L Hemoglobin 8.7 L Hematocrit 26.0 L Mean Corpuscular 94.2 Volume Mean Corpuscular 31.5 Hemoglobin Mean Corpuscular 33.5 Hemoglobin Concent Red Cell 20.1 H Distribution Width Platelet Count 117 L Mean Platelet Volume 12.3 H Immature 1.200 H Granulocytes % Neutrophils % 90.4 H Lymphocytes % 4.4 L Monocytes % 3.5 Eosinophils % 0.2 Basophils % 0.3 Nucleated Red Blood 0.2 H Cells % Immature 0.220 H Granulocytes # Neutrophils # 16.6 H Lymphocytes # 0.8 Monocytes # 0.6 Eosinophils # 0.0 Basophils # 0.1 Nucleated Red Blood 0.0 Cells # Sodium Level 129 L Potassium Level 3.6 Chloride Level 96 L Carbon Dioxide Level 24 Anion Gap 9 Blood Urea Nitrogen 31 H Creatinine 2.03 H Est Glomerular Filtrat Rate mL/min Glucose Level 148 # Calcium Level 7.6 L Phosphorus Level 2.9 Magnesium Level 2.3 Random Vancomycin 10.2 Level Bedside Glucose 191 213 Stool Occult Blood POSITIVE Medications Current Medications Multivit/Ca Carb/ B Cmplx/FA/Prenat (Shyann-Raj) 1 tab DAILY PO Last administered on 07/31/18at 08:30; Admin Dose 1 TAB; Start 07/14/18 at 09:00 Tramadol HCl (Ultram) 50 mg TID PRN PO PAIN LEVEL 6-10 Last administered on 07/24/18at 03:35; Admin Dose 50 MG; Start 07/13/18 at 23:30 Acetaminophen (Tylenol Tab) 650 mg Q6H PRN PO MILD PAIN(1-3)OR ELEVATED TEMP; Start 07/13/18 at 23:30 Hydralazine HCl (Apresoline) 20 mg Q6H PRN IV sbp over 170 Last administered on 07/14/18at 11:56; Admin Dose 20 MG; Start 07/13/18 at 23:30 Miscellaneous Information 1 ea NOTE XX ; Start 07/13/18 at 23:30 Glucose (Glutose) 15 gm Q15M PRN PO DECREASED GLUCOSE; Start 07/13/18 at 23:30 Glucose (Glutose) 22.5 gm Q15M PRN PO DECREASED GLUCOSE; Start 07/13/18 at 23:30 Dextrose (D50w Syringe) 25 ml Q15M PRN IV DECREASED GLUCOSE Last administered on 07/24/18at 08:19; Admin Dose 25 ML; Start 07/13/18 at 23:30 Dextrose (D50w Syringe) 50 ml Q15M PRN IV DECREASED GLUCOSE; Start 07/13/18 at 23:30 Glucagon (Glucagen) 1 mg Q15M PRN IM DECREASED GLUCOSE; Start 07/13/18 at 23:30 Glucose (Glutose) 15 gm Q15M PRN BUCCAL DECREASED GLUCOSE; Start 07/13/18 at 23:30 Ondansetron HCl (Zofran Inj) 4 mg Q4H PRN IV NAUSEA AND/OR VOMITING Last administered on 07/23/18 16:30; Admin Dose 4 MG; Start 07/14/18 at 00:30 Miscellaneous Information (Pending Santyl Order For Wound Care) This patient easley... PRN PRN XX WOUND CARE; Start 07/14/18 at 04:30 Heparin Sodium (Porcine) (Heparin (1000 Units/ml)) 4,000 unit AFTER DIALYSIS CATHETER Last administered on 07/27/18 20:16; Admin Dose 4,000 UNIT; Start 07/17/18 at 12:30 Diagnostic Test (Pha) (Accu-Chek) 1 ea 02 XX Last administered on 07/31/18 01:54; Admin Dose 1 EA; Start 07/19/18 at 02:00 IV Flush (NS 3 ml) 3 ml PER PROTOCOL IV ; Start 07/20/18 at 11:30 Calcium/Vitamin D (Oyster Shell/ Vit-D (500/200)) 1 tab BID PO Last administered on 07/31/18 20:14; Admin Dose 1 TAB; Start 07/20/18 at 21:00 Metoprolol Tartrate (Lopressor) 5 mg Q4H PRN IV HR > 110; Hold if SBP < 100 Last administered on 07/21/18 01:52; Admin Dose 5 MG; Start 07/21/18 at 02:00 Hydromorphone HCl (Dilaudid) 1 mg Q4H PRN IV SEVERE PAIN LEVEL 7-10 Last administered on 07/23/18 21:37; Admin Dose 1 MG; Start 07/23/18 at 22:00 Metoclopramide HCl (Reglan) 10 mg Q6H PRN IV NAUSEA AND/OR VOMITING Last administered on 07/26/18 22:31; Admin Dose 10 MG; Start 07/23/18 at 20:30 Norepinephrine 250 ml @ 1.875 mls/ hr TITRATE IV Last administered on 07/29/18 01:20; Admin Dose 3.75 MLS/HR; Start 07/24/18 at 11:00 Collagenase (Santyl) 1 applic DAILY TOP Last administered on 08/01/18 09:23; Admin Dose 1 APPLIC; Start 07/25/18 at 09:00 Phenylephrine HCl 80 mg/Dextrose 250 ml @ 18.75 mls/ hr TITRATE IV Last admin istered on 08/01/18 02:39; Admin Dose 15 MLS/HR; Start 07/24/18 at 20:30 Insulin Aspart (Novolog Insulin Pen) NOVOLOG *MILD* ALGORI... Q4 SC Last administered on 08/01/18 09:19; Admin Dose 2 UNIT; Start 07/24/18 at 21:00 Propofol 100 ml @ 1.851 mls/ hr Q12H IV Last administered on 07/28/18 20:30; Admin Dose 5.553 MLS/HR; Start 07/25/18 at 13:00 Fentanyl 100 ml @ 2.5 mls/hr TITRATE IV Last administered on 07/31/18 14:41; Admin Dose 2.5 MLS/HR; Start 07/26/18 at 11:00 Metoclopramide HCl (Reglan) 5 mg Q6 IV Last administered on 08/01/18 05:09; Admin Dose 5 MG; Start 07/27/18 at 18:00 Levothyroxine Sodium (Synthroid Iv) 50 mcg DAILY@06 IV Last administered on 08/01/18 05:09; Admin Dose 50 MCG; Start 07/28/18 at 06:00 Vancomycin HCl (Vanco Iv Per Pharmacy) VANCOMYCIN PER PHARMACY PER PROTOCOL XX ; Start 07/28/18 at 10:30 Cefepime HCl 50 ml @ 100 mls/hr Q24H IVPB Last administered on 07/31/18 12:02; Admin Dose 100 MLS/HR; Start 07/30/18 at 12:00 Lansoprazole (Prevacid) 30 mg BID@0600,1800 PO Last administered on 08/01/18 05:09; Admin Dose 30 MG; Start 07/30/18 at 18:00 Aspirin (Aspirin) 81 mg DAILY PO Last administered on 07/31/18 08:30; Admin Dose 81 MG; Start 07/30/18 at 11:30 Atorvastatin Calcium (Lipitor) 20 mg HS PO Last administered on 07/31/18 20:14; Admin Dose 20 MG; Start 07/30/18 at 21:00 Midodrine (Proamatine) 10 mg TID@09,13,17 PO Last administered on 07/30/18at 13:19; Admin Dose 10 MG; Start 07/30/18 at 13:00 Hydrocortisone (Solu-Cortef) 25 mg DAILY IV Last administered on 08/01/18at 09:23; Admin Dose 25 MG; Start 07/31/18 at 09:00 Insulin Glargine (Lantus) 15 units DAILY@0800 SC Last administered on 08/01/18at 09:25; Admin Dose 15 UNITS; Start 07/31/18 at 09:00 Assessment/Plan Hospital Course (Demo Recall) IMPRESSION 1. Cardiopulmonary arrest. Prolonged CPR with ACLS protocol. Significant encephalopathy 2. Multiple cardiopulmonary arrests and prolonged hypotension, despite this patient seems to be somewhat neurologically intact. 3. End-stage renal failure on hemodialysis. 4. Possible aspiration pneumonia. Septic shock. Requiring vasopressor support, increasing pressor requirements 5. History of severe peripheral vascular disease. 6. Possible acute GI bleed given acute drop in hemoglobin prior to cardiac arrest 7. refractory septic shock Plan 1. Vasopressor support as needed. 2. Mechanical ventilation currently not stable for CPAP trials. Unlikely to be liberated from mechanical ventilation 3. Broad-spectrum antibiotic coverage for possible aspiration. 4. GI recommendations 5. DVT and GI prophylaxis. Critical care time 40 minutes. Prognosis guarded. Family conference regarding goals of care. Very poor prognosis. DEVAN MIDDLETON MD, [facility] Aug 01, 2018 11:49
[2018-08-01] MEDS: CEFEPIME 1GM/50 ML IVPB SCH ×2 (12:00→15:53)
[2018-08-01] MEDS: PROPOFOL 100 ML IV SCH (12:13)
--- NOTE | 2018-08-01 13:34 | PN ---
Date/Time of Note Date/Time of Note DATE: 08/01/18 TIME: 13:32 Assessment/Plan VTE Prophylaxis Risk score (from Ns)>0 risk: 9 SCD applied (from Ns): Yes Pharmacological prophylaxis: NA/contraindicated Pharm contraindication: low risk/ambulating Lines/Catheters IV Catheter Type (from Nrsg): A Line Urinary Cath still in place: Yes Reason Cath still needed: urinary retention Assessment/Plan Hospital Course 78 y/o with IMPRESSION: # Cardiac pulmonary arrest s/p vfib # Respiratory failure s/p intubation # Hypotension s/p shock? cardiac vs hypovolemic/septic #LE me anemia likely to secondary to GI bleed H&H stable status post unit 2 units of blood # Hyperkalemia due to missed hemodialysis.due to fall # Acute comminuted fractures of the distal tibia and fibula that involve the distal tibiofibular joint. Distal tibia fracture extends to within 0.3 cm of the tibial plafond but does not involve the articular surface. The appearance is in keeping with an extra-articular Pilon fracture. #. Hyponatremia. resolved #. Metabolic acidosis. # Cardiomegaly and pulmonary edema. #. Aortic atherosclerosis. #. History of congestive heart failure. # History of diabetic retinopathy, nephropathy. #. Hypoalbuminemia. # The patient has right lower extremity brace.with fracture #. Left stump bruise now noticed to have a fracture on the left hip on the x- rays # ? AFIB. # Congestive heart failure by x-ray, question systolic versus diastolic, likely acute on chronic given presentation. # elevated troponin in the setting of end-stage kidney disease # Epigastric pain r/o gastritis/ GB disease> CT scan was pending # elevated troponin in the setting of cardiac arrest downtrending # Leukocytosis # AMS ? sedation vs s/p cpr arrest with encephalopathy , now with new cerebellar infarcts Plan - MRI Of the brain pending too unstable - Seen by neurology > poor prognosis - cw Low-dose aspirin statins/statin - Hd today today - cw lantus - try to decrease sedation and assess mental status - f/u midodrine with parametes and dec hydrocortisone - cw vancomycin/cefepime -Feeding as tolerated - Hb stable , no evidence of bleeding -Dr. [place] was also called for fracture of the left hip> intervention currently as patient is unstable -Hold anticoagulation due to bleeding - fu cardiac/pul recs Family meeting tmw Overall porr prognosis> will talk to family again today Is chemical code now however overall prognosis is guarded will wait for neurology recommendations Result Diagram: 08/01/18 0300 08/01/18 0300 Results 24hrs Laboratory Tests Test 07/31/18 16:57 07/31/18 20:14 08/01/18 00:49 08/01/18 03:00 Bedside Glucose 235 H 230 H 162 White Blood Count 18.4 H Red Blood Count 2.76 L Hemoglobin 8.7 L Hematocrit 26.0 L Mean Corpuscular 94.2 Volume Mean Corpuscular 31.5 Hemoglobin Mean Corpuscular 33.5 Hemoglobin Concent Red Cell 20.1 H Distribution Width Platelet Count 117 L Mean Platelet Volume 12.3 H Immature 1.200 H Granulocytes % Neutrophils % 90.4 H Lymphocytes % 4.4 L Monocytes % 3.5 Eosinophils % 0.2 Basophils % 0.3 Nucleated Red Blood 0.2 H Cells % Immature 0.220 H Granulocytes # Neutrophils # 16.6 H Lymphocytes # 0.8 Monocytes # 0.6 Eosinophils # 0.0 Basophils # 0.1 Nucleated Red Blood 0.0 Cells # Sodium Level 129 L Potassium Level 3.6 Chloride Level 96 L Carbon Dioxide Level 24 Anion Gap 9 Blood Urea Nitrogen 31 H Creatinine 2.03 H Est Glomerular Filtrat Rate mL/min Glucose Level 148 # Calcium Level 7.6 L Phosphorus Level 2.9 Magnesium Level 2.3 Random Vancomycin 10.2 Level Test 08/01/18 04:19 08/01/18 05:00 08/01/18 09:11 08/01/18 12:43 Bedside Glucose 191 213 172 Stool Occult Blood POSITIVE Subjective 24 Hr Interval Summary Free Text/Dictation She remains unresponsive. opens Her eyes may be withdraws to pain HD plan today Exam/Review of Systems Exam Vitals Vital Signs Date Temp Pulse Resp B/P (MAP) Pulse Ox O2 O2 Flow FiO2 Time Delivery Rate 08/01/18 94 13:20 08/01/18 23 102/59 93 12:15 (73) 08/01/18 98.5 12:00 08/01/18 Mechanical 10:35 Ventilator 08/01/18 40 05:38 Intake and Output 07/31/18 07/31/18 08/01/18 1515:00 23:00 07:00 IntakeIntake Total 909.27 ml 266.38 ml 471.76 ml OutputOutput Total 2 ml 5 ml 0 ml BalanceBalance 907.27 ml 261.38 ml 471.76 ml Exam espiratory: diminished breath sounds Cardiovascular: regular rate and rhythm Gastrointestinal: soft, bowel sounds (+) Extremities: edema (+) 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 open eyes does not follow any commands Right arm more swollen than the left Results Results 24hrs Laboratory Tests Test 07/31/18 16:57 07/31/18 20:14 08/01/18 00:49 08/01/18 03:00 Bedside Glucose 235 H 230 H 162 White Blood Count 18.4 H Red Blood Count 2.76 L Hemoglobin 8.7 L Hematocrit 26.0 L Mean Corpuscular 94.2 Volume Mean Corpuscular 31.5 Hemoglobin Mean Corpuscular 33.5 Hemoglobin Concent Red Cell 20.1 H Distribution Width Platelet Count 117 L Mean Platelet Volume 12.3 H Immature 1.200 H Granulocytes % Neutrophils % 90.4 H Lymphocytes % 4.4 L Monocytes % 3.5 Eosinophils % 0.2 Basophils % 0.3 Nucleated Red Blood 0.2 H Cells % Immature 0.220 H Granulocytes # Neutrophils # 16.6 H Lymphocytes # 0.8 Monocytes # 0.6 Eosinophils # 0.0 Basophils # 0.1 Nucleated Red Blood 0.0 Cells # Sodium Level 129 L Potassium Level 3.6 Chloride Level 96 L Carbon Dioxide Level 24 Anion Gap 9 Blood Urea Nitrogen 31 H Creatinine 2.03 H Est Glomerular Filtrat Rate mL/min Glucose Level 148 # Calcium Level 7.6 L Phosphorus Level 2.9 Magnesium Level 2.3 Random Vancomycin 10.2 Level Test 08/01/18 04:19 08/01/18 05:00 08/01/18 09:11 08/01/18 12:43 Bedside Glucose 191 213 172 Stool Occult Blood POSITIVE Medications Medication Current Medications Multivit/Ca Carb/ B Cmplx/FA/Prenat (Shyann-Raj) 1 tab DAILY PO Last administered on 07/31/18at 08:30; Admin Dose 1 TAB; Start 07/14/18 at 09:00 Tramadol HCl (Ultram) 50 mg TID PRN PO PAIN LEVEL 6-10 Last administered on 07/24/18at 03:35; Admin Dose 50 MG; Start 07/13/18 at 23:30 Acetaminophen (Tylenol Tab) 650 mg Q6H PRN PO MILD PAIN(1-3)OR ELEVATED TEMP; Start 07/13/18 at 23:30 Hydralazine HCl (Apresoline) 20 mg Q6H PRN IV sbp over 170 Last administered on 07/14/18at 11:56; Admin Dose 20 MG; Start 07/13/18 at 23:30 Miscellaneous Information 1 ea NOTE XX ; Start 07/13/18 at 23:30 Glucose (Glutose) 15 gm Q15M PRN PO DECREASED GLUCOSE; Start 07/13/18 at 23:30 Glucose (Glutose) 22.5 gm Q15M PRN PO DECREASED GLUCOSE; Start 07/13/18 at 23:30 Dextrose (D50w Syringe) 25 ml Q15M PRN IV DECREASED GLUCOSE Last administered on 07/24/18at 08:19; Admin Dose 25 ML; Start 07/13/18 at 23:30 Dextrose (D50w Syringe) 50 ml Q15M PRN IV DECREASED GLUCOSE; Start 07/13/18 at 23:30 Glucagon (Glucagen) 1 mg Q15M PRN IM DECREASED GLUCOSE; Start 07/13/18 at 23:30 Glucose (Glutose) 15 gm Q15M PRN BUCCAL DECREASED GLUCOSE; Start 07/13/18 at 23:30 Ondansetron HCl (Zofran Inj) 4 mg Q4H PRN IV NAUSEA AND/OR VOMITING Last administered on 07/23/18at 16:30; Admin Dose 4 MG; Start 07/14/18 at 00:30 Miscellaneous Information (Pending [facility] Order For Wound Care) This patient easley... PRN PRN XX WOUND CARE; Start 07/14/18 at 04:30 Heparin Sodium (Porcine) (Heparin (1000 Units/ml)) 4,000 unit AFTER DIALYSIS CATHETER Last administered on 07/27/18at 20:16; Admin Dose 4,000 UNIT; Start 07/17/18 at 12:30 Diagnostic Test (Pha) (Accu-Chek) 1 ea 02 XX Last administered on 07/31/18at 01:54; Admin Dose 1 EA; Start 07/19/18 at 02:00 IV Flush (NS 3 ml) 3 ml PER PROTOCOL IV ; Start 07/20/18 at 11:30 Calcium/Vitamin D (Oyster Shell/ Vit-D (500/200)) 1 tab BID PO Last administ ered on 07/31/18 20:14; Admin Dose 1 TAB; Start 07/20/18 at 21:00 Metoprolol Tartrate (Lopressor) 5 mg Q4H PRN IV HR > 110; Hold if SBP < 100 Last administered on 07/21/18 01:52; Admin Dose 5 MG; Start 07/21/18 at 02:00 Hydromorphone HCl (Dilaudid) 1 mg Q4H PRN IV SEVERE PAIN LEVEL 7-10 Last admi nistered on 07/23/18 21:37; Admin Dose 1 MG; Start 07/23/18 at 22:00 Metoclopramide HCl (Reglan) 10 mg Q6H PRN IV NAUSEA AND/OR VOMITING Last administered on 07/26/18 22:31; Admin Dose 10 MG; Start 07/23/18 at 20:30 Norepinephrine 250 ml @ 1.875 mls/ hr TITRATE IV Last administered on 07/29/18 01:20; Admin Dose 3.75 MLS/HR; Start 07/24/18 at 11:00 Collagenase (Santyl) 1 applic DAILY TOP Last administered on 08/01/18 09:23; Admin Dose 1 APPLIC; Start 07/25/18 at 09:00 Phenylephrine HCl 80 mg/Dextrose 250 ml @ 18.75 mls/ hr TITRATE IV Last administered on 08/01/18 02:39; Admin Dose 15 MLS/HR; Start 07/24/18 at 20:30 Insulin Aspart (Novolog Insulin Pen) NOVOLOG *MILD* ALGORI... Q4 SC Last administered on 08/01/18 12:50; Admin Dose 1 UNIT; Start 07/24/18 at 21:00 Propofol 100 ml @ 1.851 mls/ hr Q12H IV Last administered on 07/28/18 20:30; Admin Dose 5.553 MLS/HR; Start 07/25/18 at 13:00 Fentanyl 100 ml @ 2.5 mls/hr TITRATE IV Last administered on 07/31/18 14:41; Admin Dose 2.5 MLS/HR; Start 07/26/18 at 11:00 Metoclopramide HCl (Reglan) 5 mg Q6 IV Last administered on 08/01/18 12:46; Admin Dose 5 MG; Start 07/27/18 at 18:00 Levothyroxine Sodium (Synthroid Iv) 50 mcg DAILY@06 IV Last administered on 08/01/18 05:09; Admin Dose 50 MCG; Start 07/28/18 at 06:00 Vancomycin HCl (Vanco Iv Per Pharmacy) VANCOMYCIN PER PHARMACY PER PROTOCOL XX ; Start 07/28/18 at 10:30 Cefepime HCl 50 ml @ 100 mls/hr Q24H IVPB Last administered on 07/31/18 12:02; Admin Dose 100 MLS/HR; Start 07/30/18 at 12:00 Lansoprazole (Prevacid) 30 mg BID@0600,1800 PO Last administered on 08/01/18 05:09; Admin Dose 30 MG; Start 07/30/18 at 18:00 Aspirin (Aspirin) 81 mg DAILY PO Last administered on 07/31/18 08:30; Admin Dose 81 MG; Start 07/30/18 at 11:30 Atorvastatin Calcium (Lipitor) 20 mg HS PO Last administered on 07/31/18 20:14; Admin Dose 20 MG; Start 07/30/18 at 21:00 Midodrine (Proamatine) 10 mg TID@09,13,17 PO Last administered on 08/01/18 12:46; Admin Dose 10 MG; Start 07/30/18 at 13:00 Hydrocortisone (Solu-Cortef) 25 mg DAILY IV Last administered on 08/01/18 09: 23; Admin Dose 25 MG; Start 07/31/18 at 09:00 Insulin Glargine (Lantus) 15 units DAILY@0800 SC Last administered on 08/01/18 09:25; Admin Dose 15 UNITS; Start 07/31/18 at 09:00 Fosfomycin Tromethamine (Monurol) 3 gm ONCE ONCE PO ; Start 08/01/18 at 13:30; Stop 08/01/18 at 13:31; Status ADAM ESQUEDA MD Aug 01, 2018 13:34
[2018-08-01] MEDS ORDERED: FOSFOMYCIN 3 GM PACKET PO ONE (14:30)
[2018-08-01] MEDS: FENTAnyl (DRIP) 1000 mcg/100mL 100 ML IV SCH (15:58)
--- NOTE | 2018-08-01 17:38 | CONS ---
Assessment/Plan Assessment/Plan Assessment/Plan (Daily) 1. Anemia, rule out gastrointestinal bleeding. -concern for GI bleed due to drop in H/H prior to cardiac arrest. -per RN bm was brown with potentially old melena, no active bleeding 2. Status post pulseless electrical activity period and cardiac arrest. 3. Ventilator-dependent respiratory failure. 4. End-stage renal disease, on dialysis. 5. 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 6. Left stump bruises. 7. Ankle fracture. 8. Cirrhosis of liver 9. Gastroparesis 10 bilateral cerebellar infarct 11 septic shock patient is on pressor support Plan Family spoke with Dr. Hernandez, chemical code only. Monitor HH and replace as necessary. Anemia work up, FOB pending. Iron and TIBC low, ferritin folate b 12 pending Continue present care Continue tube feeds as tolerated Aspiration precautions Patient is unstable for any endoscopy procedures and there is no active GI bleeding at this point Continue on lactulose and Reglan and PPI BID. Consultation Date/Type/Reason Admit Date/Time Jul 13, 2018 at 21:32 Initial Consult Date Requesting Provider: ADAM HERNANDEZ MD Date/Time of Note DATE: 08/01/18 TIME: 17:36 24 HR Interval Summary Subjective hx not possible: pt non-verbal, pt critical Exam/Review of Systems Exam Vitals Vital Signs Date Temp Pulse Resp B/P (MAP) Pulse Ox O2 O2 Flow FiO2 Time Delivery Rate 08/01/18 90 16:00 08/01/18 29 126/35 96 15:30 (65) 08/01/18 Mechanical 14:18 Ventilator 08/01/18 40 13:35 08/01/18 98.5 12:00 Intake and Output 07/31/18 07/31/18 08/01/18 1414:59 22:59 06:59 IntakeIntake Total 921.64 ml 277.51 ml 525.76 ml OutputOutput Total 2 ml 5 ml 0 ml BalanceBalance 919.64 ml 272.51 ml 525.76 ml Neck: supple, non-tender Respiratory: diminished breath sounds Extremities: normal pulses Results Result Diagram: 08/01/18 0300 08/01/18 0300 Results 24hrs Laboratory Tests Test 07/31/18 20:14 08/01/18 00:49 08/01/18 03:00 08/01/18 04:19 Bedside Glucose 230 H 162 191 White Blood Count 18.4 H Red Blood Count 2.76 L Hemoglobin 8.7 L Hematocrit 26.0 L Mean Corpuscular 94.2 Volume Mean Corpuscular 31.5 Hemoglobin Mean Corpuscular 33.5 Hemoglobin Concent Red Cell 20.1 H Distribution Width Platelet Count 117 L Mean Platelet Volume 12.3 H Immature 1.200 H Granulocytes % Neutrophils % 90.4 H Lymphocytes % 4.4 L Monocytes % 3.5 Eosinophils % 0.2 Basophils % 0.3 Nucleated Red Blood 0.2 H Cells % Immature 0.220 H Granulocytes # Neutrophils # 16.6 H Lymphocytes # 0.8 Monocytes # 0.6 Eosinophils # 0.0 Basophils # 0.1 Nucleated Red Blood 0.0 Cells # Sodium Level 129 L Potassium Level 3.6 Chloride Level 96 L Carbon Dioxide Level 24 Anion Gap 9 Blood Urea Nitrogen 31 H Creatinine 2.03 H Est Glomerular Filtrat Rate mL/min Glucose Level 148 # Calcium Level 7.6 L Phosphorus Level 2.9 Magnesium Level 2.3 Random Vancomycin 10.2 Level Test 08/01/18 05:00 08/01/18 09:11 08/01/18 12:43 08/01/18 16:46 Stool Occult Blood POSITIVE Bedside Glucose 213 172 186 Medications Medication Current Medications Multivit/Ca Carb/ B Cmplx/FA/Prenat (Shyann-Raj) 1 tab DAILY PO Last administered on 07/31/18at 08:30; Admin Dose 1 TAB; Start 07/14/18 at 09:00 Tramadol HCl (Ultram) 50 mg TID PRN PO PAIN LEVEL 6-10 Last administered on at 03:35; Admin Dose 50 MG; Start 07/13/18 at 23:30 Acetaminophen (Tylenol Tab) 650 mg Q6H PRN PO MILD PAIN(1-3)OR ELEVATED TEMP; Start 07/13/18 at 23:30 Hydralazine HCl (Apresoline) 20 mg Q6H PRN IV sbp over 170 Last administered on 07/14/18at 11:56; Admin Dose 20 MG; Start 07/13/18 at 23:30 Miscellaneous Information 1 ea NOTE XX ; Start 07/13/18 at 23:30 Glucose (Glutose) 15 gm Q15M PRN PO DECREASED GLUCOSE; Start 07/13/18 at 23:30 Glucose (Glutose) 22.5 gm Q15M PRN PO DECREASED GLUCOSE; Start 07/13/18 at 23:30 Dextrose (D50w Syringe) 25 ml Q15M PRN IV DECREASED GLUCOSE Last administered on 07/24/18at 08:19; Admin Dose 25 ML; Start 07/13/18 at 23:30 Dextrose (D50w Syringe) 50 ml Q15M PRN IV DECREASED GLUCOSE; Start 07/13/18 at 23:30 Glucagon (Glucagen) 1 mg Q15M PRN IM DECREASED GLUCOSE; Start 07/13/18 at 23:30 Glucose (Glutose) 15 gm Q15M PRN BUCCAL DECREASED GLUCOSE; Start 07/13/18 at 23:30 Ondansetron HCl (Zofran Inj) 4 mg Q4H PRN IV NAUSEA AND/OR VOMITING Last administered on 07/23/18 16:30; Admin Dose 4 MG; Start 07/14/18 at 00:30 Miscellaneous Information (Pending [facility] Order For Wound Care) This patient easley... PRN PRN XX WOUND CARE; Start 07/14/18 at 04:30 Heparin Sodium (Porcine) (Heparin (1000 Units/ml)) 4,000 unit AFTER DIALYSIS CATHETER Last administered on 07/27/18 20:16; Admin Dose 4,000 UNIT; Start 07/17/18 at 12:30 Diagnostic Test (Pha) (Accu-Chek) 1 ea 02 XX Last administered on 07/31/18at 01:54; Admin Dose 1 EA; Start 07/19/18 at 02:00 IV Flush (NS 3 ml) 3 ml PER PROTOCOL IV ; Start 07/20/18 at 11:30 Calcium/Vitamin D (Oyster Shell/ Vit-D (500/200)) 1 tab BID PO Last administered on 07/31/18 20:14; Admin Dose 1 TAB; Start 07/20/18 at 21:00 Metoprolol Tartrate (Lopressor) 5 mg Q4H PRN IV HR > 110; Hold if SBP < 100 Last administered on 07/21/18 01:52; Admin Dose 5 MG; Start 07/21/18 at 02:00 Hydromorphone HCl (Dilaudid) 1 mg Q4H PRN IV SEVERE PAIN LEVEL 7-10 Last administered on 07/23/18 21:37; Admin Dose 1 MG; Start 07/23/18 at 22:00 Metoclopramide HCl (Reglan) 10 mg Q6H PRN IV NAUSEA AND/OR VOMITING Last administered on 07/26/18 22:31; Admin Dose 10 MG; Start 07/23/18 at 20:30 Norepinephrine 250 ml @ 1.875 mls/ hr TITRATE IV Last administered on 07/29/18 01:20; Admin Dose 3.75 MLS/HR; Start 07/24/18 at 11:00 Collagenase (Santyl) 1 applic DAILY TOP Last administered on 08/01/18 09:23; Admin Dose 1 APPLIC; Start 07/25/18 at 09:00 Phenylephrine HCl 80 mg/Dextrose 250 ml @ 18.75 mls/ hr TITRATE IV Last administered on 08/01/18 02:39; Admin Dose 15 MLS/HR; Start 07/24/18 at 20:30 Insulin Aspart (Novolog Insulin Pen) NOVOLOG *MILD* ALGORI... Q4 SC Last administered on 08/01/18 16:53; Admin Dose 2 UNIT; Start 07/24/18 at 21:00 Propofol 100 ml @ 1.851 mls/ hr Q12H IV Last administered on 07/28/18 20:30; Admin Dose 5.553 MLS/HR; Start 07/25/18 at 13:00 Fentanyl 100 ml @ 2.5 mls/hr TITRATE IV Last administered on 08/01/18 15:58; Admin Dose 5 MLS/HR; Start 07/26/18 at 11:00 Metoclopramide HCl (Reglan) 5 mg Q6 IV Last administered on 08/01/18 17:00; Admin Dose 5 MG; Start 07/27/18 at 18:00 Levothyroxine Sodium (Synthroid Iv) 50 mcg DAILY@06 IV Last administered on 08/01/18 05:09; Admin Dose 50 MCG; Start 07/28/18 at 06:00 Vancomycin HCl (Vanco Iv Per Pharmacy) VANCOMYCIN PER PHARMACY PER PROTOCOL XX ; Start 07/28/18 at 10:30 Cefepime HCl 50 ml @ 100 mls/hr Q24H IVPB Last administered on 08/01/18 15: 53; Admin Dose 100 MLS/HR; Start 07/30/18 at 12:00 Lansoprazole (Prevacid) 30 mg BID@0600,1800 PO Last administered on 08/01/18 17:00; Admin Dose 30 MG; Start 07/30/18 at 18:00 Aspirin (Aspirin) 81 mg DAILY PO Last administered on 07/31/18 08:30; Admin Dose 81 MG; Start 07/30/18 at 11:30 Atorvastatin Calcium (Lipitor) 20 mg HS PO Last administered on 07/31/18 20:14; Admin Dose 20 MG; Start 07/30/18 at 21:00 Midodrine (Proamatine) 10 mg TID@09,13,17 PO Last administered on 08/01/18 16:56; Admin Dose 10 MG; Start 07/30/18 at 13:00 Hydrocortisone (Solu-Cortef) 25 mg DAILY IV Last administered on 08/01/18 09:23; Admin Dose 25 MG; Start 07/31/18 at 09:00 Insulin Glargine (Lantus) 15 units DAILY@0800 SC Last administered on 08/01/18 09:25; Admin Dose 15 UNITS; Start 07/31/18 at 09:00 GLORIA TURNER MD Aug 01, 2018 17:38
[2018-08-01] MEDS: ATORVASTATIN 20 MG TAB PO SCH (20:11)
[2018-08-02] VITALS (102 sets, daily range): BP systolic 62–143; BP diastolic 22–103; PULSE 61–97; RESP 14–33
[2018-08-02] MEDS: METOCLOPRAMIDE 10 MG INJ IV SCH ×3 (00:05→12:55)
[2018-08-02] MEDS: PROPOFOL 100 ML IV SCH ×2 (00:06→12:16)
[2018-08-02] MEDS: INSULIN ASPART [NOVOLOG] 3 ML PEN SC SCH ×6 (00:41→21:48)
[2018-08-02] MEDS: ACCU-CHEK XX SCH (00:42)
[2018-08-02] MEDS: LEVOTHYROXINE 100 MCG VIAL IV SCH (05:11)
[2018-08-02] MEDS: LANSOPRAZOLE 30 MG CAP PO SCH ×2 (05:12→18:01)
[2018-08-02] MEDS: HYDROCORTISONE 100 MG INJ IV SCH (09:03)
[2018-08-02] MEDS: COLLAGENASE 5 GM (UD JAR) TOP SCH (09:03)
[2018-08-02] MEDS: CALCIUM/VITAMIN D (500/200) TAB PO SCH ×2 (09:03→21:46)
[2018-08-02] MEDS: MIDODRINE 5 MG TAB PO SCH ×3 (09:03→18:04)
[2018-08-02] MEDS: ASPIRIN 81 MG TAB PO SCH (09:03)
[2018-08-02] MEDS: MULTIVIT/CA CARB/B CMPLX/FA TAB PO SCH (09:03)
[2018-08-02] MEDS: BALSAM PERU/CASTOR OIL 60 GM TUBE TOP SCH ×2 (09:03→21:46)
[2018-08-02] MEDS: INSULIN GLARGINE [LANTus] (100 UNITS/ML) SYG SC SCH (09:10)
[2018-08-02] MEDS: MIDAZOLAM (DRIP) 50 mg/50 mL 50 ML IV SCH (09:55)
--- NOTE | 2018-08-02 10:03 | CONS ---
Assessment/Plan Assessment/Plan Assessment/Plan (Daily) 1. Anemia, rule out gastrointestinal bleeding. -concern for GI bleed due to drop in H/H prior to cardiac arrest. -per RN bm was brown with potentially old melena, no active bleeding 2. Status post pulseless electrical activity period and cardiac arrest. 3. Ventilator-dependent respiratory failure. 4. End-stage renal disease, on dialysis. 5. 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 6. Left stump bruises. 7. Ankle fracture. 8. Cirrhosis of liver 9. Gastroparesis 10 bilateral cerebellar infarct 11 septic shock patient is on pressor support Plan Family spoke with Dr. Hernandez, chemical code only. Monitor HH and replace as necessary. Continue present care Continue tube feeds as tolerated Aspiration precautions Patient is unstable for any endoscopy procedures and there is no active GI bleeding at this point Continue on lactulose and Reglan and PPI BID. Patient is tolerating feeding no gastric residual Consultation Date/Type/Reason Admit Date/Time Jul 13, 2018 at 21:32 Initial Consult Date Requesting Provider: ADAM HERNANDEZ MD Date/Time of Note DATE: 08/02/18 TIME: 10:01 24 HR Interval Summary Free Text/Dictation Skin is unconscious not not responding to verbal command or to touch Exam/Review of Systems Exam Vitals Vital Signs Date Temp Pulse Resp B/P (MAP) Pulse Ox O2 O2 Flow FiO2 Time Delivery Rate 08/02/18 88 18 94/47 (63) 95 09:45 08/02/18 97.2 Mechanical 08:00 Ventilator 08/02/18 40 08:00 Intake and Output 08/01/18 08/01/18 08/02/18 1515:00 23:00 07:00 IntakeIntake Total 521.91 ml 674.14 ml 225 ml OutputOutput Total 3600 ml 1 ml BalanceBalance -3078.09 ml 673.14 ml 225 ml Respiratory: clear to auscultation, normal air movement Neurological: unresponsive Results Result Diagram: 08/02/18 04308/02/18 0430 Results 24hrs Laboratory Tests Test 08/01/18 12:43 08/01/18 16:46 08/01/18 20:37 08/02/18 00:38 Bedside Glucose 172 186 182 178 Test 08/02/18 04:30 08/02/18 05:08 08/02/18 09:02 White Blood Count 17.3 H Red Blood Count 2.65 L Hemoglobin 8.7 L Hematocrit 24.9 L Mean Corpuscular 94.0 Volume Mean Corpuscular 32.8 Hemoglobin Mean Corpuscular 34.9 Hemoglobin Concent Red Cell 21.0 H Distribution Width Platelet Count 114 L Mean Platelet Volume 12.2 H Immature 0.800 H Granulocytes % Neutrophils % Segmented 83 H Neutrophils % (Manual) Band Neutrophils % 11 H (Manual) Lymphocytes % Lymphocytes % 1 L (Manual) Reactive Lymphocytes 1 H % (Manual) Monocytes % Monocytes % (Manual) 2 Eosinophils % Eosinophils % 2 (Manual) Basophils % Nucleated Red Blood 0.2 H Cells % Immature 0.140 H Granulocytes # Neutrophils # Neutrophils # 14.7 H (Manual) Band Neutrophils # 1.9 H Lymphocytes (Manual) 0.1 L Lymphocytes # Reactive Lymphocytes 0.1 H # Monocytes # Monocytes # (Manual) 0.3 Eosinophils # Basophils # Nucleated Red Blood Cells # Platelet Estimate DECREASED Giant Platelets 3 H Poikilocytosis 2+ Anisocytosis 2+ Macrocytosis 2+ Spherocytes 1+ Target Cells 1+ Sodium Level 132 L Potassium Level 3.2 L Chloride Level 99 Carbon Dioxide Level 23 Anion Gap 10 Blood Urea Nitrogen 23 H Creatinine 1.65 H Est Glomerular Filtrat Rate mL/min Glucose Level 196 Calcium Level 7.6 L Phosphorus Level 2.0 L Magnesium Level 2.1 Bedside Glucose 194 222 H Medications Medication Current Medications Multivit/Ca Carb/ B Cmplx/FA/Prenat (Shyann-Raj) 1 tab DAILY PO Last administered on 08/02/18at 09:03; Admin Dose 1 TAB; Start 07/14/18 at 09:00 Tramadol HCl (Ultram) 50 mg TID PRN PO PAIN LEVEL 6-10 Last administered on 07/24/18at 03:35; Admin Dose 50 MG; Start 07/13/18 at 23:30 Acetaminophen (Tylenol Tab) 650 mg Q6H PRN PO MILD PAIN(1-3)OR ELEVATED TEMP; Start 07/13/18 at 23:30 Hydralazine HCl (Apresoline) 20 mg Q6H PRN IV sbp over 170 Last administered on 07/14/18at 11:56; Admin Dose 20 MG; Start 07/13/18 at 23:30 Miscellaneous Information 1 ea NOTE XX ; Start 07/13/18 at 23:30 Glucose (Glutose) 15 gm Q15M PRN PO DECREASED GLUCOSE; Start 07/13/18 at 23:30 Glucose (Glutose) 22.5 gm Q15M PRN PO DECREASED GLUCOSE; Start 07/13/18 at 23:30 Dextrose (D50w Syringe) 25 ml Q15M PRN IV DECREASED GLUCOSE Last administered on 07/24/18at 08:19; Admin Dose 25 ML; Start 07/13/18 at 23:30 Dextrose (D50w Syringe) 50 ml Q15M PRN IV DECREASED GLUCOSE; Start 07/13/18 at 23:30 Glucagon (Glucagen) 1 mg Q15M PRN IM DECREASED GLUCOSE; Start 07/13/18 at 23:30 Glucose (Glutose) 15 gm Q15M PRN BUCCAL DECREASED GLUCOSE; Start 07/13/18 at 23:30 Ondansetron HCl (Zofran Inj) 4 mg Q4H PRN IV NAUSEA AND/OR VOMITING Last administered on 07/23/18at 16:30; Admin Dose 4 MG; Start 07/14/18 at 00:30 Miscellaneous Information (Pending [facility] Order For Wound Care) This patient easley... PRN PRN XX WOUND CARE; Start 07/14/18 at 04:30 Heparin Sodium (Porcine) (Heparin (1000 Units/ml)) 4,000 unit AFTER DIALYSIS CATHETER Last administered on 07/27/18at 20:16; Admin Dose 4,000 UNIT; Start 07/17/18 at 12:30 Diagnostic Test (Pha) (Accu-Chek) 1 ea 02 XX Last administered on 08/02/18at 00:42; Admin Dose 1 EA; Start 07/19/18 at 02:00 IV Flush (NS 3 ml) 3 ml PER PROTOCOL IV ; Start 07/20/18 at 11:30 Calcium/Vitamin D (Oyster Shell/ Vit-D (500/200)) 1 tab BID PO Last administer ed on 08/02/18at 09:03; Admin Dose 1 TAB; Start 07/20/18 at 21:00 Metoprolol Tartrate (Lopressor) 5 mg Q4H PRN IV HR > 110; Hold if SBP < 100 Last administered on 07/21/18at 01:52; Admin Dose 5 MG; Start 07/21/18 at 02:00 Hydromorphone HCl (Dilaudid) 1 mg Q4H PRN IV SEVERE PAIN LEVEL 7-10 Last admini stered on 07/23/18 21:37; Admin Dose 1 MG; Start 07/23/18 at 22:00 Metoclopramide HCl (Reglan) 10 mg Q6H PRN IV NAUSEA AND/OR VOMITING Last administered on 07/26/18 22:31; Admin Dose 10 MG; Start 07/23/18 at 20:30 Norepinephrine 250 ml @ 1.875 mls/ hr TITRATE IV Last administered on 07/29/18 01:20; Admin Dose 3.75 MLS/HR; Start 07/24/18 at 11:00 Collagenase (Santyl) 1 applic DAILY TOP Last administered on 08/02/18 09:03; Admin Dose 1 APPLIC; Start 07/25/18 at 09:00 Phenylephrine HCl 80 mg/Dextrose 250 ml @ 18.75 mls/ hr TITRATE IV Last administered on 08/01/18 21:02; Admin Dose 9.38 MLS/HR; Start 07/24/18 at 20:30 Insulin Aspart (Novolog Insulin Pen) NOVOLOG *MILD* ALGORI... Q4 SC Last administered on 08/02/18 09:09; Admin Dose 3 UNIT; Start 07/24/18 at 21:00 Propofol 100 ml @ 1.851 mls/ hr Q12H IV Last administered on 07/28/18 20:30; Admin Dose 5.553 MLS/HR; Start 07/25/18 at 13:00 Fentanyl 100 ml @ 2.5 mls/hr TITRATE IV Last administered on 08/01/18 15:58; Admin Dose 5 MLS/HR; Start 07/26/18 at 11:00 Metoclopramide HCl (Reglan) 5 mg Q6 IV Last administered on 08/02/18 05:11; Admin Dose 5 MG; Start 07/27/18 at 18:00 Levothyroxine Sodium (Synthroid Iv) 50 mcg DAILY@06 IV Last administered on 08/02/18 05:11; Admin Dose 50 MCG; Start 07/28/18 at 06:00 Vancomycin HCl (Vanco Iv Per Pharmacy) VANCOMYCIN PER PHARMACY PER PROTOCOL XX ; Start 07/28/18 at 10:30 Cefepime HCl 50 ml @ 100 mls/hr Q24H IVPB Last administered on 08/01/18 15:53; Admin Dose 100 MLS/HR; Start 07/30/18 at 12:00 Lansoprazole (Prevacid) 30 mg BID@0600,1800 PO Last administered on 08/02/18 05:12; Admin Dose 30 MG; Start 07/30/18 at 18:00 Aspirin (Aspirin) 81 mg DAILY PO Last administered on 08/02/18 09:03; Admin Dose 81 MG; Start 07/30/18 at 11:30 Atorvastatin Calcium (Lipitor) 20 mg HS PO Last administered on 08/01/18 20:11; Admin Dose 20 MG; Start 07/30/18 at 21:00 Midodrine (Proamatine) 10 mg TID@09,13,17 PO Last administered on 08/02/18 09:03; Admin Dose 10 MG; Start 07/30/18 at 13:00 Hydrocortisone (Solu-Cortef) 25 mg DAILY IV Last administered on 08/02/18 09:03; Admin Dose 25 MG; Start 07/31/18 at 09:00 Insulin Glargine (Lantus) 15 units DAILY@0800 SC Last administered on 08/02/18 09:10; Admin Dose 15 UNITS; Start 07/31/18 at 09:00 Midazolam HCl 50 ml @ 1 mls/hr TITRATE IV Last administered on 08/02/18 09:55; Admin Dose 1 MLS/HR; Start 08/02/18 at 10:00 GLORIA TURNER MD Aug 02, 2018 10:03
[2018-08-02] MEDS: FENTAnyl (DRIP) 1000 mcg/100mL 100 ML IV SCH ×2 (10:23→23:07)
--- NOTE | 2018-08-02 11:31 | CONS ---
Consult Date/Type/Reason Admit Date/Time Jul 13, 2018 at 21:32 Initial Consult Date Type of Consult Pulmonary Requesting Provider: ADAM DUARTE MD Date/Time of Note DATE: 08/02/18 TIME: 11:30 Subjective Patient remains unresponsive on mechanical ventilation Objective Vital Signs Date Temp Pulse Resp B/P (MAP) Pulse Ox O2 O2 Flow FiO2 Time Delivery Rate 08/02/18 88 18 94/47 (63) 95 09:45 08/02/18 97.2 Mechanical 08:00 Ventilator 08/02/18 40 08:00 Intake and Output 08/01/18 08/01/18 08/02/18 1515:00 23:00 07:00 IntakeIntake Total 521.91 ml 674.14 ml 225 ml OutputOutput Total 3600 ml 1 ml BalanceBalance -3078.09 ml 673.14 ml 225 ml Exam PHYSICAL EXAMINATION: GENERAL: Chronically ill appearing lady on mechanical ventilation. VITAL SIGNS: Opens eyes attempting to communicate. NECK: Supple. No JVD or lymphadenopathy. CARDIAC: S1, S2, no added sounds or murmurs. CHEST: Diminished air entry bilaterally. ABDOMEN: Soft, nontender. No guarding or rebound. EXTREMITIES: No cyanosis, clubbing or edema. NEUROLOGIC: Unable to assess. Vent Setting Ventilator Support Mode: AC Fraction of Inspired Oxygen pe: 40 Positive End Expiratory Pressu: 5.0 Results/Medications Result Diagram: 08/02/18 04308/02/18 043 Results 24 hrs Laboratory Tests Test 08/01/18 12:43 08/01/18 16:46 08/01/18 20:37 08/02/18 00:38 Bedside Glucose 172 186 182 178 Test 08/02/18 04:30 08/02/18 05:08 08/02/18 09:02 White Blood Count 17.3 H Red Blood Count 2.65 L Hemoglobin 8.7 L Hematocrit 24.9 L Mean Corpuscular 94.0 Volume Mean Corpuscular 32.8 Hemoglobin Mean Corpuscular 34.9 Hemoglobin Concent Red Cell 21.0 H Distribution Width Platelet Count 114 L Mean Platelet Volume 12.2 H Immature 0.800 H Granulocytes % Neutrophils % Segmented 83 H Neutrophils % (Manual) Band Neutrophils % 11 H (Manual) Lymphocytes % Lymphocytes % 1 L (Manual) Reactive Lymphocytes 1 H % (Manual) Monocytes % Monocytes % (Manual) 2 Eosinophils % Eosinophils % 2 (Manual) Basophils % Nucleated Red Blood 0.2 H Cells % Immature 0.140 H Granulocytes # Neutrophils # Neutrophils # 14.7 H (Manual) Band Neutrophils # 1.9 H Lymphocytes (Manual) 0.1 L Lymphocytes # Reactive Lymphocytes 0.1 H # Monocytes # Monocytes # (Manual) 0.3 Eosinophils # Basophils # Nucleated Red Blood Cells # Platelet Estimate DECREASED Giant Platelets 3 H Poikilocytosis 2+ Anisocytosis 2+ Macrocytosis 2+ Spherocytes 1+ Target Cells 1+ Sodium Level 132 L Potassium Level 3.2 L Chloride Level 99 Carbon Dioxide Level 23 Anion Gap 10 Blood Urea Nitrogen 23 H Creatinine 1.65 H Est Glomerular Filtrat Rate mL/min Glucose Level 196 Calcium Level 7.6 L Phosphorus Level 2.0 L Magnesium Level 2.1 Bedside Glucose 194 222 H Medications Current Medications Multivit/Ca Carb/ B Cmplx/FA/Prenat (Shyann-Raj) 1 tab DAILY PO Last administ ered on 08/02/18at 09:03; Admin Dose 1 TAB; Start 07/14/18 at 09:00 Tramadol HCl (Ultram) 50 mg TID PRN PO PAIN LEVEL 6-10 Last administered on 07/24/18at 03:35; Admin Dose 50 MG; Start 07/13/18 at 23:30 Acetaminophen (Tylenol Tab) 650 mg Q6H PRN PO MILD PAIN(1-3)OR ELEVATED TEMP; Start 07/13/18 at 23:30 Hydralazine HCl (Apresoline) 20 mg Q6H PRN IV sbp over 170 Last administered on 07/14/18at 11:56; Admin Dose 20 MG; Start 07/13/18 at 23:30 Miscellaneous Information 1 ea NOTE XX ; Start 07/13/18 at 23:30 Glucose (Glutose) 15 gm Q15M PRN PO DECREASED GLUCOSE; Start 07/13/18 at 23:30 Glucose (Glutose) 22.5 gm Q15M PRN PO DECREASED GLUCOSE; Start 07/13/18 at 23:30 Dextrose (D50w Syringe) 25 ml Q15M PRN IV DECREASED GLUCOSE Last administered on 07/24/18at 08:19; Admin Dose 25 ML; Start 07/13/18 at 23:30 Dextrose (D50w Syringe) 50 ml Q15M PRN IV DECREASED GLUCOSE; Start 07/13/18 at 23:30 Glucagon (Glucagen) 1 mg Q15M PRN IM DECREASED GLUCOSE; Start 07/13/18 at 23:30 Glucose (Glutose) 15 gm Q15M PRN BUCCAL DECREASED GLUCOSE; Start 07/13/18 at 23:30 Ondansetron HCl (Zofran Inj) 4 mg Q4H PRN IV NAUSEA AND/OR VOMITING Last administered on 07/23/18 16:30; Admin Dose 4 MG; Start 07/14/18 at 00:30 Miscellaneous Information (Pending Santyl Order For Wound Care) This patient easley... PRN PRN XX WOUND CARE; Start 07/14/18 at 04:30 Heparin Sodium (Porcine) (Heparin (1000 Units/ml)) 4,000 unit AFTER DIALYSIS CATHETER Last administered on 07/27/18 20:16; Admin Dose 4,000 UNIT; Start 07/17/18 at 12:30 Diagnostic Test (Pha) (Accu-Chek) 1 ea 02 XX Last administered on 08/02/18 00:42; Admin Dose 1 EA; Start 07/19/18 at 02:00 IV Flush (NS 3 ml) 3 ml PER PROTOCOL IV ; Start 07/20/18 at 11:30 Calcium/Vitamin D (Oyster Shell/ Vit-D (500/200)) 1 tab BID PO Last administered on 08/02/18 09:03; Admin Dose 1 TAB; Start 07/20/18 at 21:00 Metoprolol Tartrate (Lopressor) 5 mg Q4H PRN IV HR > 110; Hold if SBP < 100 Last administered on 07/21/18 01:52; Admin Dose 5 MG; Start 07/21/18 at 02:00 Hydromorphone HCl (Dilaudid) 1 mg Q4H PRN IV SEVERE PAIN LEVEL 7-10 Last administered on 07/23/18 21:37; Admin Dose 1 MG; Start 07/23/18 at 22:00 Metoclopramide HCl (Reglan) 10 mg Q6H PRN IV NAUSEA AND/OR VOMITING Last administered on 07/26/18 22:31; Admin Dose 10 MG; Start 07/23/18 at 20:30 Norepinephrine 250 ml @ 1.875 mls/ hr TITRATE IV Last administered on 07/29/18 01:20; Admin Dose 3.75 MLS/HR; Start 07/24/18 at 11:00 Collagenase (Santyl) 1 applic DAILY TOP Last administered on 08/02/18 09:03; Admin Dose 1 APPLIC; Start 07/25/18 at 09:00 Phenylephrine HCl 80 mg/Dextrose 250 ml @ 18.75 mls/ hr TITRATE IV Last administered on 08/01/18 21:02; Admin Dose 9.38 MLS/HR; Start 07/24/18 at 20:30 Insulin Aspart (Novolog Insulin Pen) NOVOLOG *MILD* ALGORI... Q4 SC Last administered on 08/02/18 09:09; Admin Dose 3 UNIT; Start 07/24/18 at 21:00 Propofol 100 ml @ 1.851 mls/ hr Q12H IV Last administered on 07/28/18 20:30; Admin Dose 5.553 MLS/HR; Start 07/25/18 at 13:00 Fentanyl 100 ml @ 2.5 mls/hr TITRATE IV Last administered on 08/02/18 10:23; Admin Dose 10 MLS/HR; Start 07/26/18 at 11:00 Metoclopramide HCl (Reglan) 5 mg Q6 IV Last administered on 08/02/18 05:11; Admin Dose 5 MG; Start 07/27/18 at 18:00 Levothyroxine Sodium (Synthroid Iv) 50 mcg DAILY@06 IV Last administered on 08/02/18 05:11; Admin Dose 50 MCG; Start 07/28/18 at 06:00 Vancomycin HCl (Vanco Iv Per Pharmacy) VANCOMYCIN PER PHARMACY PER PROTOCOL XX ; Start 07/28/18 at 10:30 Cefepime HCl 50 ml @ 100 mls/hr Q24H IVPB Last administered on 08/01/18 15:53; Admin Dose 100 MLS/HR; Start 07/30/18 at 12:00 Lansoprazole (Prevacid) 30 mg BID@0600,1800 PO Last administered on 08/02/18 05:12; Admin Dose 30 MG; Start 07/30/18 at 18:00 Aspirin (Aspirin) 81 mg DAILY PO Last administered on 08/02/18 09:03; Admin Dose 81 MG; Start 07/30/18 at 11:30 Atorvastatin Calcium (Lipitor) 20 mg HS PO Last administered on 08/01/18 20:11; Admin Dose 20 MG; Start 07/30/18 at 21:00 Midodrine (Proamatine) 10 mg TID@09,13,17 PO Last administered on 08/02/18 09:03; Admin Dose 10 MG; Start 07/30/18 at 13:00 Hydrocortisone (Solu-Cortef) 25 mg DAILY IV Last administered on 08/02/18 09:03; Admin Dose 25 MG; Start 07/31/18 at 09:00 Insulin Glargine (Lantus) 15 units DAILY@0800 SC Last administered on 08/02/18 09:10; Admin Dose 15 UNITS; Start 07/31/18 at 09:00 Midazolam HCl 50 ml @ 1 mls/hr TITRATE IV Last administered on 08/02/18 09:55; Admin Dose 1 MLS/HR; Start 08/02/18 at 10:00 Assessment/Plan Hospital Course (Demo Recall) IMPRESSION 1. Cardiopulmonary arrest. Prolonged CPR with ACLS protocol. Significant encephalopathy 2. Multiple cardiopulmonary arrests and prolonged hypotension, despite this patient seems to be somewhat neurologically intact. 3. End-stage renal failure on hemodialysis. 4. Possible aspiration pneumonia. Septic shock. Requiring vasopressor support, increasing pressor requirements 5. History of severe peripheral vascular disease. 6. Possible acute GI bleed given acute drop in hemoglobin prior to cardiac arrest 7. refractory septic shock Plan 1. Vasopressor support as needed. 2. Mechanical ventilation currently not stable for CPAP trials. Unlikely to be liberated from mechanical ventilation 3. Broad-spectrum antibiotic coverage for possible aspiration. 4. GI recommendations 5. DVT and GI prophylaxis. Critical care time 40 minutes. Prognosis guarded. Family conference regarding goals of care. Very poor prognosis. DEVAN MIDDLETON MD, [facility] Aug 02, 2018 11:31
--- NOTE | 2018-08-02 11:41 | CONS ---
Assessment/Plan Assessment/Plan Hospital Course (Demo Recall) IMP: 1. Preoperative for LE ORIF-NL EF by echo with mod-sev TR. Lexiscan with NL EF and partially reversible inferior wall defect. Thus patient has no cardiac contraindication to proceeding to OR on current medications but at moderate to high risk. Now post-op s/p ORIF 2.Positive troponin 3.BRadycardia to 40's/stable BP. S Misael- now improved with decrease in dose of clonidine and having short runs of tachycardia/SVT. ? Now in AF s/p code yesterday 4.HTN-uncontrolled at this time 5.ankle fracture 6.ESRD on HD 7. TR-mod-sev 8. ? sick euthyroid-elevated TSH and Free t4 9. Patient with PEA and VFA this am requiring ACLS and intubation protocol on onset during HD 10. anemia-acute drop. ? where bleeding,internal given abd pain. Now s/p transfusion PRBC's/possible melena overnight 11.PAF- in AF at this time. Reasonable rates on amiodarone 12. Nstemi- downtrending cardiac enzymes significantly 14. hypotension-on jake- s/p repeat echo 07/29 with EF slightly lower but still wnl 50% 15. UTI Recc -ICU -Continue Jake with weaning as tolerated -continue vent support -Continue ASA as tolerated. Not on systemic anticoagulation secondary to anemia/GIB -transfuse PRBC's as necessary -HD as tolearted only, ongoing now -trend cardiac enzymes -Contineu abx's and f/u cx data -ongoing family discussion about direction of care Consultation Date/Type/Reason Admit Date/Time Jul 13, 2018 at 21:32 Initial Consult Date 07/16/18 Type of Consult Cardiology Reason for Consultation arrythmia Requesting Provider: ADAM DUARTE MD Date/Time of Note DATE: 08/02/18 TIME: 11:38 Exam/Review of Systems Vital Signs Vitals Vital Signs Date Temp Pulse Resp B/P (MAP) Pulse Ox O2 O2 Flow FiO2 Time Delivery Rate 08/02/18 88 18 94/47 (63) 95 09:45 08/02/18 97.2 Mechanical 08:00 Ventilator 08/02/18 40 08:00 Intake and Output 08/01/18 08/01/18 08/02/18 1515:00 23:00 07:00 IntakeIntake Total 521.91 ml 674.14 ml 225 ml OutputOutput Total 3600 ml 1 ml BalanceBalance -3078.09 ml 673.14 ml 225 ml Exam Exam Review of Systems: CONSTITUTIONAL: No fevers, chills. PULMONARY: No sob CARDIOVASCULAR: No chest pain/palpitations GASTROINTESTINAL: No nausea/vomiting. GENITOURINARY: No hematuria/dysuria. MUSCULOSKELETAL: No myagias/arthalgias. PSYCHIATRIC: The patient denies depression. NEUROLOGIC: No weakness Constitutional: other (encephalopathic) Psych: no complaints Head: normocephalic ENMT: mucosa pink and moist Neck: supple, jvd (9 cm water) Respiratory: clear to auscultation Gastrointestinal: soft, non-tender Musculoskeletal: muscle weakness (generallly) Extremities: other (s/p LE amputation) Labs Result Diagram: 08/02/18 0430 08/02/18 0430 Results 24hrs Laboratory Tests Test 08/01/18 12:43 08/01/18 16:46 08/01/18 20:37 08/02/18 00:38 Bedside Glucose 172 186 182 178 Test 08/02/18 04:30 08/02/18 05:08 08/02/18 09:02 White Blood Count 17.3 H Red Blood Count 2.65 L Hemoglobin 8.7 L Hematocrit 24.9 L Mean Corpuscular 94.0 Volume Mean Corpuscular 32.8 Hemoglobin Mean Corpuscular 34.9 Hemoglobin Concent Red Cell 21.0 H Distribution Width Platelet Count 114 L Mean Platelet Volume 12.2 H Immature 0.800 H Granulocytes % Neutrophils % Segmented 83 H Neutrophils % (Manual) Band Neutrophils % 11 H (Manual) Lymphocytes % Lymphocytes % 1 L (Manual) Reactive Lymphocytes 1 H % (Manual) Monocytes % Monocytes % (Manual) 2 Eosinophils % Eosinophils % 2 (Manual) Basophils % Nucleated Red Blood 0.2 H Cells % Immature 0.140 H Granulocytes # Neutrophils # Neutrophils # 14.7 H (Manual) Band Neutrophils # 1.9 H Lymphocytes (Manual) 0.1 L Lymphocytes # Reactive Lymphocytes 0.1 H # Monocytes # Monocytes # (Manual) 0.3 Eosinophils # Basophils # Nucleated Red Blood Cells # Platelet Estimate DECREASED Giant Platelets 3 H Poikilocytosis 2+ Anisocytosis 2+ Macrocytosis 2+ Spherocytes 1+ Target Cells 1+ Sodium Level 132 L Potassium Level 3.2 L Chloride Level 99 Carbon Dioxide Level 23 Anion Gap 10 Blood Urea Nitrogen 23 H Creatinine 1.65 H Est Glomerular Filtrat Rate mL/min Glucose Level 196 Calcium Level 7.6 L Phosphorus Level 2.0 L Magnesium Level 2.1 Bedside Glucose 194 222 H Medications Medications Current Medications Multivit/Ca Carb/ B Cmplx/FA/Prenat (Shyann-Raj) 1 tab DAILY PO Last administ ered on 08/02/18at 09:03; Admin Dose 1 TAB; Start 07/14/18 at 09:00 Tramadol HCl (Ultram) 50 mg TID PRN PO PAIN LEVEL 6-10 Last administered on 07/24/18at 03:35; Admin Dose 50 MG; Start 07/13/18 at 23:30 Acetaminophen (Tylenol Tab) 650 mg Q6H PRN PO MILD PAIN(1-3)OR ELEVATED TEMP; Start 07/13/18 at 23:30 Hydralazine HCl (Apresoline) 20 mg Q6H PRN IV sbp over 170 Last administered on 07/14/18at 11:56; Admin Dose 20 MG; Start 07/13/18 at 23:30 Miscellaneous Information 1 ea NOTE XX ; Start 07/13/18 at 23:30 Glucose (Glutose) 15 gm Q15M PRN PO DECREASED GLUCOSE; Start 07/13/18 at 23:30 Glucose (Glutose) 22.5 gm Q15M PRN PO DECREASED GLUCOSE; Start 07/13/18 at 23:30 Dextrose (D50w Syringe) 25 ml Q15M PRN IV DECREASED GLUCOSE Last administered on 07/24/18at 08:19; Admin Dose 25 ML; Start 07/13/18 at 23:30 Dextrose (D50w Syringe) 50 ml Q15M PRN IV DECREASED GLUCOSE; Start 07/13/18 at 23:30 Glucagon (Glucagen) 1 mg Q15M PRN IM DECREASED GLUCOSE; Start 07/13/18 at 23:30 Glucose (Glutose) 15 gm Q15M PRN BUCCAL DECREASED GLUCOSE; Start 07/13/18 at 23:30 Ondansetron HCl (Zofran Inj) 4 mg Q4H PRN IV NAUSEA AND/OR VOMITING Last administered on 07/23/18at 16:30; Admin Dose 4 MG; Start 07/14/18 at 00:30 Miscellaneous Information (Pending Santyl Order For Wound Care) This patient easley... PRN PRN XX WOUND CARE; Start 07/14/18 at 04:30 Heparin Sodium (Porcine) (Heparin (1000 Units/ml)) 4,000 unit AFTER DIALYSIS CATHETER Last administered on 07/27/18 20:16; Admin Dose 4,000 UNIT; Start 07/17/18 at 12:30 Diagnostic Test (Pha) (Accu-Chek) 1 ea 02 XX Last administered on 08/02/18 00:42; Admin Dose 1 EA; Start 07/19/18 at 02:00 IV Flush (NS 3 ml) 3 ml PER PROTOCOL IV ; Start 07/20/18 at 11:30 Calcium/Vitamin D (Oyster Shell/ Vit-D (500/200)) 1 tab BID PO Last administered on 08/02/18 09:03; Admin Dose 1 TAB; Start 07/20/18 at 21:00 Metoprolol Tartrate (Lopressor) 5 mg Q4H PRN IV HR > 110; Hold if SBP < 100 Last administered on 07/21/18 01:52; Admin Dose 5 MG; Start 07/21/18 at 02:00 Hydromorphone HCl (Dilaudid) 1 mg Q4H PRN IV SEVERE PAIN LEVEL 7-10 Last administered on 07/23/18 21:37; Admin Dose 1 MG; Start 07/23/18 at 22:00 Metoclopramide HCl (Reglan) 10 mg Q6H PRN IV NAUSEA AND/OR VOMITING Last administered on 07/26/18 22:31; Admin Dose 10 MG; Start 07/23/18 at 20:30 Norepinephrine 250 ml @ 1.875 mls/ hr TITRATE IV Last administered on 07/29/18 01:20; Admin Dose 3.75 MLS/HR; Start 07/24/18 at 11:00 Collagenase (Santyl) 1 applic DAILY TOP Last administered on 08/02/18 09:03; Admin Dose 1 APPLIC; Start 07/25/18 at 09:00 Phenylephrine HCl 80 mg/Dextrose 250 ml @ 18.75 mls/ hr TITRATE IV Last administered on 08/01/18 21:02; Admin Dose 9.38 MLS/HR; Start 07/24/18 at 20:30 Insulin Aspart (Novolog Insulin Pen) NOVOLOG *MILD* ALGORI... Q4 SC Last administered on 08/02/18 09:09; Admin Dose 3 UNIT; Start 07/24/18 at 21:00 Propofol 100 ml @ 1.851 mls/ hr Q12H IV Last administered on 07/28/18 20:30; Admin Dose 5.553 MLS/HR; Start 07/25/18 at 13:00 Fentanyl 100 ml @ 2.5 mls/hr TITRATE IV Last administered on 08/02/18 10:23; Admin Dose 10 MLS/HR; Start 07/26/18 at 11:00 Metoclopramide HCl (Reglan) 5 mg Q6 IV Last administered on 08/02/18 05:11; Admin Dose 5 MG; Start 07/27/18 at 18:00 Levothyroxine Sodium (Synthroid Iv) 50 mcg DAILY@06 IV Last administered on 08/02/18 05:11; Admin Dose 50 MCG; Start 07/28/18 at 06:00 Vancomycin HCl (Vanco Iv Per Pharmacy) VANCOMYCIN PER PHARMACY PER PROTOCOL XX ; Start 07/28/18 at 10:30 Cefepime HCl 50 ml @ 100 mls/hr Q24H IVPB Last administered on 08/01/18 15:53; Admin Dose 100 MLS/HR; Start 07/30/18 at 12:00 Lansoprazole (Prevacid) 30 mg BID@0600,1800 PO Last administered on 08/02/18 05:12; Admin Dose 30 MG; Start 07/30/18 at 18:00 Aspirin (Aspirin) 81 mg DAILY PO Last administered on 08/02/18 09:03; Admin Dose 81 MG; Start 07/30/18 at 11:30 Atorvastatin Calcium (Lipitor) 20 mg HS PO Last administered on 08/01/18 20:11; Admin Dose 20 MG; Start 07/30/18 at 21:00 Midodrine (Proamatine) 10 mg TID@,13,17 PO Last administered on 08/02/18 09:03; Admin Dose 10 MG; Start 07/30/18 at 13:00 Hydrocortisone (Solu-Cortef) 25 mg DAILY IV Last administered on 2/22/19at 09:03; Admin Dose 25 MG; Start 07/31/18 at 09:00 Insulin Glargine (Lantus) 15 units DAILY@0800 SC Last administered on 08/02/18 09:10; Admin Dose 15 UNITS; Start 07/31/18 at 09:00 Midazolam HCl 50 ml @ 1 mls/hr TITRATE IV Last administered on 08/02/18at 09:55; Admin Dose 1 MLS/HR; Start 08/02/18 at 10:00 JUSTICE HARRISON Aug 02, 2018 11:41
--- NOTE | 2018-08-02 14:03 | PN ---
DAE KEYESA 08/02/18 1403: Date/Time of Note Date/Time of Note DATE: 08/02/18 TIME: 13:59 Assessment/Plan VTE Prophylaxis Risk score (from [facility])>0 risk: 24 SCD applied (from [facility]): No SCD contraindicated: bilateral amputee Pharmacological prophylaxis: NA/contraindicated Pharm contraindication: anticoag not tolerated Lines/Catheters [facility] A Line Urinary Cath still in place: Yes Reason Cath still needed: urinary retention Assessment/Plan Hospital Course # Cardiac pulmonary arrest s/p vfib # Respiratory failure s/p intubation # Hypotension s/p shock? cardiac vs hypovolemic/septic # LE anemia likely to secondary to GI bleed H&H stable status post unit 2 units of blood # Hyperkalemia due to missed hemodialysis.due to fall # Acute comminuted fractures of the distal tibia and fibula that involve the distal tibiofibular joint. Distal tibia fracture extends to within 0.3 cm of the tibial plafond but does not involve the articular surface. The appearance is in keeping with an extra-articular Pilon fracture. #. Hyponatremia. resolved #. Metabolic acidosis. # Cardiomegaly and pulmonary edema. #. Aortic atherosclerosis. #. History of congestive heart failure. # History of diabetic retinopathy, nephropathy. #. Hypoalbuminemia. # The patient has right lower extremity brace.with fracture #. Left stump bruise now noticed to have a fracture on the left hip on the x- rays # ? AFIB. # Congestive heart failure by x-ray, question systolic versus diastolic, likely acute on chronic given presentation. # elevated troponin in the setting of end-stage kidney disease # Epigastric pain r/o gastritis/ GB disease> CT scan was pending # elevated troponin in the setting of cardiac arrest downtrending # Leukocytosis # AMS ? sedation vs s/p cpr arrest with encephalopathy , now with new cerebellar infarcts Family meeting tmw Assessment/Plan - family meeting today -MRI Of the brain pending too unstable - Seen by neurology > poor prognosis - cw Low-dose aspirin statins/statin - Hd was yesterday - cw lantus - try to decrease sedation and assess mental status - f/u midodrine with parameters and dec hydrocortisone - cw vancomycin/cefepime -Feeding as tolerated - Hb stable , no evidence of bleeding -Dr. [place] was also called for fracture of the left hip> intervention currently as patient is unstable -Hold anticoagulation due to bleeding - fu cardiac/pul recs Result Diagram: 08/02/18 0430 08/02/18 0430 Results 24hrs Laboratory Tests Test 08/01/18 16:46 08/01/18 20:37 08/02/18 00:38 08/02/18 04:30 Bedside Glucose 186 182 178 White Blood Count 17.3 H Red Blood Count 2.65 L Hemoglobin 8.7 L Hematocrit 24.9 L Mean Corpuscular 94.0 Volume Mean Corpuscular 32.8 Hemoglobin Mean Corpuscular 34.9 Hemoglobin Concent Red Cell 21.0 H Distribution Width Platelet Count 114 L Mean Platelet Volume 12.2 H Immature 0.800 H Granulocytes % Neutrophils % Segmented 83 H Neutrophils % (Manual) Band Neutrophils % 11 H (Manual) Lymphocytes % Lymphocytes % 1 L (Manual) Reactive Lymphocytes 1 H % (Manual) Monocytes % Monocytes % (Manual) 2 Eosinophils % Eosinophils % 2 (Manual) Basophils % Nucleated Red Blood 0.2 H Cells % Immature 0.140 H Granulocytes # Neutrophils # Neutrophils # 14.7 H (Manual) Band Neutrophils # 1.9 H Lymphocytes (Manual) 0.1 L Lymphocytes # Reactive Lymphocytes 0.1 H # Monocytes # Monocytes # (Manual) 0.3 Eosinophils # Basophils # Nucleated Red Blood Cells # Platelet Estimate DECREASED Giant Platelets 3 H Poikilocytosis 2+ Anisocytosis 2+ Macrocytosis 2+ Spherocytes 1+ Target Cells 1+ Sodium Level 132 L Potassium Level 3.2 L Chloride Level 99 Carbon Dioxide Level 23 Anion Gap 10 Blood Urea Nitrogen 23 H Creatinine 1.65 H Est Glomerular Filtrat Rate mL/min Glucose Level 196 Calcium Level 7.6 L Phosphorus Level 2.0 L Magnesium Level 2.1 Test 08/02/18 05:08 08/02/18 09:02 08/02/18 13:05 Bedside Glucose 194 222 H 212 Subjective 24 Hr Interval Summary Free Text/Dictation orally intubated Subjective hx not possible: pt non-verbal Exam/Review of Systems Exam Vitals Vital Signs Date Temp Pulse Resp B/P (MAP) Pulse Ox O2 O2 Flow FiO2 Time Delivery Rate 08/02/18 69 16 95/33 (53) 100 13:30 08/02/18 97.0 Mechanical 12:00 Ventilator 08/02/18 40 08:00 Intake and Output 08/01/18 08/01/18 08/02/18 1515:00 23:00 07:00 IntakeIntake Total 521.91 ml 674.14 ml 244.38 ml OutputOutput Total 3600 ml 1 ml BalanceBalance -3078.09 ml 673.14 ml 244.38 ml Exam sedated Constitutional: distress, frail Respiratory: diminished breath sounds Cardiovascular: regular rate and rhythm, other (normotensive) Gastrointestinal: soft Additional Comments Right chest Permcath Results Result Diagram: 08/02/18 0430 08/02/18 0430 Results 24hrs Laboratory Tests Test 08/01/18 16:46 08/01/18 20:37 08/02/18 00:38 08/02/18 04:30 Bedside Glucose 186 182 178 White Blood Count 17.3 H Red Blood Count 2.65 L Hemoglobin 8.7 L Hematocrit 24.9 L Mean Corpuscular 94.0 Volume Mean Corpuscular 32.8 Hemoglobin Mean Corpuscular 34.9 Hemoglobin Concent Red Cell 21.0 H Distribution Width Platelet Count 114 L Mean Platelet Volume 12.2 H Immature 0.800 H Granulocytes % Neutrophils % Segmented 83 H Neutrophils % (Manual) Band Neutrophils % 11 H (Manual) Lymphocytes % Lymphocytes % 1 L (Manual) Reactive Lymphocytes 1 H % (Manual) Monocytes % Monocytes % (Manual) 2 Eosinophils % Eosinophils % 2 (Manual) Basophils % Nucleated Red Blood 0.2 H Cells % Immature 0.140 H Granulocytes # Neutrophils # Neutrophils # 14.7 H (Manual) Band Neutrophils # 1.9 H Lymphocytes (Manual) 0.1 L Lymphocytes # Reactive Lymphocytes 0.1 H # Monocytes # Monocytes # (Manual) 0.3 Eosinophils # Basophils # Nucleated Red Blood Cells # Platelet Estimate DECREASED Giant Platelets 3 H Poikilocytosis 2+ Anisocytosis 2+ Macrocytosis 2+ Spherocytes 1+ Target Cells 1+ Sodium Level 132 L Potassium Level 3.2 L Chloride Level 99 Carbon Dioxide Level 23 Anion Gap 10 Blood Urea Nitrogen 23 H Creatinine 1.65 H Est Glomerular Filtrat Rate mL/min Glucose Level 196 Calcium Level 7.6 L Phosphorus Level 2.0 L Magnesium Level 2.1 Test 08/02/18 05:08 08/02/18 09:02 08/02/18 13:05 Bedside Glucose 194 222 H 212 Medications Medication Current Medications Multivit/Ca Carb/ B Cmplx/FA/Prenat (Shyann-Raj) 1 tab DAILY PO Last administered on 08/02/18at 09:03; Admin Dose 1 TAB; Start 07/14/18 at 09:00 Tramadol HCl (Ultram) 50 mg TID PRN PO PAIN LEVEL 6-10 Last administered on 07/24/18at 03:35; Admin Dose 50 MG; Start 07/13/18 at 23:30 Acetaminophen (Tylenol Tab) 650 mg Q6H PRN PO MILD PAIN(1-3)OR ELEVATED TEMP; Start 07/13/18 at 23:30 Hydralazine HCl (Apresoline) 20 mg Q6H PRN IV sbp over 170 Last administered on 07/14/18at 11:56; Admin Dose 20 MG; Start 07/13/18 at 23:30 Miscellaneous Information 1 ea NOTE XX ; Start 07/13/18 at 23:30 Glucose (Glutose) 15 gm Q15M PRN PO DECREASED GLUCOSE; Start 07/13/18 at 23:30 Glucose (Glutose) 22.5 gm Q15M PRN PO DECREASED GLUCOSE; Start 07/13/18 at 23:30 Dextrose (D50w Syringe) 25 ml Q15M PRN IV DECREASED GLUCOSE Last administered on 07/24/18at 08:19; Admin Dose 25 ML; Start 07/13/18 at 23:30 Dextrose (D50w Syringe) 50 ml Q15M PRN IV DECREASED GLUCOSE; Start 07/13/18 at 23:30 Glucagon (Glucagen) 1 mg Q15M PRN IM DECREASED GLUCOSE; Start 07/13/18 at 23:30 Glucose (Glutose) 15 gm Q15M PRN BUCCAL DECREASED GLUCOSE; Start 07/13/18 at 23:30 Ondansetron HCl (Zofran Inj) 4 mg Q4H PRN IV NAUSEA AND/OR VOMITING Last administered on 07/23/18at 16:30; Admin Dose 4 MG; Start 07/14/18 at 00:30 Miscellaneous Information (Pending [facility] Order For Wound Care) This patient easley... PRN PRN XX WOUND CARE; Start 07/14/18 at 04:30 Heparin Sodium (Porcine) (Heparin (1000 Units/ml)) 4,000 unit AFTER DIALYSIS CATHETER Last administered on 07/27/18 20:16; Admin Dose 4,000 UNIT; Start 07/17/18 at 12:30 Diagnostic Test (Pha) (Accu-Chek) 1 ea 02 XX Last administered on 08/02/18 00:42; Admin Dose 1 EA; Start 07/19/18 at 02:00 IV Flush (NS 3 ml) 3 ml PER PROTOCOL IV ; Start 07/20/18 at 11:30 Calcium/Vitamin D (Oyster Shell/ Vit-D (500/200)) 1 tab BID PO Last administered on 08/02/18 09:03; Admin Dose 1 TAB; Start 07/20/18 at 21:00 Metoprolol Tartrate (Lopressor) 5 mg Q4H PRN IV HR > 110; Hold if SBP < 100 Las t administered on 07/21/18 01:52; Admin Dose 5 MG; Start 07/21/18 at 02:00 Hydromorphone HCl (Dilaudid) 1 mg Q4H PRN IV SEVERE PAIN LEVEL 7-10 Last administered on 07/23/18 21:37; Admin Dose 1 MG; Start 07/23/18 at 22:00 Metoclopramide HCl (Reglan) 10 mg Q6H PRN IV NAUSEA AND/OR VOMITING Last ad ministered on 07/26/18 22:31; Admin Dose 10 MG; Start 07/23/18 at 20:30 Norepinephrine 250 ml @ 1.875 mls/ hr TITRATE IV Last administered on 07/29/18 01:20; Admin Dose 3.75 MLS/HR; Start 07/24/18 at 11:00 Collagenase (Santyl) 1 applic DAILY TOP Last administered on 08/02/18 09:03; Admin Dose 1 APPLIC; Start 07/25/18 at 09:00 Phenylephrine HCl 80 mg/Dextrose 250 ml @ 18.75 mls/ hr TITRATE IV Last administered on 08/01/18 21:02; Admin Dose 9.38 MLS/HR; Start 07/24/18 at 20:30 Insulin Aspart (Novolog Insulin Pen) NOVOLOG *MILD* ALGORI... Q4 SC Last administered on 08/02/18 13:10; Admin Dose 2 UNIT; Start 07/24/18 at 21:00 Propofol 100 ml @ 1.851 mls/ hr Q12H IV Last administered on 07/28/18 20:30; Admin Dose 5.553 MLS/HR; Start 07/25/18 at 13:00 Fentanyl 100 ml @ 2.5 mls/hr TITRATE IV Last administered on 08/02/18 10:23; Admin Dose 10 MLS/HR; Start 07/26/18 at 11:00 Metoclopramide HCl (Reglan) 5 mg Q6 IV Last administered on 08/02/18 12:55; Admin Dose 5 MG; Start 07/27/18 at 18:00 Levothyroxine Sodium (Synthroid Iv) 50 mcg DAILY@06 IV Last administered on 08/02/18 05:11; Admin Dose 50 MCG; Start 07/28/18 at 06:00 Vancomycin HCl (Vanco Iv Per Pharmacy) VANCOMYCIN PER PHARMACY PER PROTOCOL XX ; Start 07/28/18 at 10:30 Cefepime HCl 50 ml @ 100 mls/hr Q24H IVPB Last administered on 08/01/18 15:53; Admin Dose 100 MLS/HR; Start 07/30/18 at 12:00 Lansoprazole (Prevacid) 30 mg BID@0600,1800 PO Last administered on 08/02/18 05:12; Admin Dose 30 MG; Start 07/30/18 at 18:00 Aspirin (Aspirin) 81 mg DAILY PO Last administered on 08/02/18 09:03; Admin Dose 81 MG; Start 07/30/18 at 11:30 Atorvastatin Calcium (Lipitor) 20 mg HS PO Last administered on 08/01/18 20:11; Admin Dose 20 MG; Start 07/30/18 at 21:00 Midodrine (Proamatine) 10 mg TID@09,13,17 PO Last administered on 08/02/18 13:18; Admin Dose 10 MG; Start 07/30/18 at 13:00 Hydrocortisone (Solu-Cortef) 25 mg DAILY IV Last administered on 08/02/18 09:03; Admin Dose 25 MG; Start 07/31/18 at 09:00 Insulin Glargine (Lantus) 15 units DAILY@0800 SC Last administered on 08/02/18 09:10; Admin Dose 15 UNITS; Start 07/31/18 at 09:00 Midazolam HCl 50 ml @ 1 mls/hr TITRATE IV Last administered on 08/02/18at 09:55; Admin Dose 1 MLS/HR; Start 08/02/18 at 10:00 ADAM DUARTE MD 08/02/18 1759: Assessment/Plan Assessment/Plan Assessment/Plan SPOKE TO FAMILY ALL QS ANWERED FULL CODE PER FAMILY WOULD LIKE TRACH AND PEG Result Diagram: 08/02/18 0430 08/02/18 0430 ANAYELI KEYES Aug 02, 2018 14:03 ADAM DUARTE MD Aug 02, 2018 17:59
[2018-08-02] MEDS ORDERED: POTASSIUM CHLORIDE (SR) 20 MEQ TAB PO STA (15:34)
[2018-08-02] MEDS: PHENYLephrine 80 MG in DEXTROSE 5% 242 ML IV SCH (15:36)
[2018-08-02] MEDS ORDERED: POTASSIUM CHLORIDE 20 MEQ POWDER FOR ORAL SOLN GTB ONE (17:30)
[2018-08-02] MEDS ORDERED: HEPARIN 1000 UNITS/ML 10 ML INJ CATHETER SCH ×2 (18:00→19:00)
[2018-08-02] MEDS: ATORVASTATIN 20 MG TAB PO SCH (21:46)
[2018-08-03] VITALS (105 sets, daily range): BP systolic 98–134; BP diastolic 30–92; PULSE 61–97; RESP 13–28
[2018-08-03] MEDS: PROPOFOL 100 ML IV SCH ×2 (01:00→13:00)
[2018-08-03] MEDS: INSULIN ASPART [NOVOLOG] 3 ML PEN SC SCH ×6 (01:00→21:00)
[2018-08-03] MEDS: PHENYLephrine 80 MG in DEXTROSE 5% 242 ML IV SCH ×3 (01:18→18:13)
[2018-08-03] MEDS: ACCU-CHEK XX SCH (02:00)
[2018-08-03] MEDS: LEVOTHYROXINE 100 MCG TAB PO SCH (05:57)
[2018-08-03] MEDS: LANSOPRAZOLE 30 MG CAP PO SCH ×2 (05:57→17:12)
[2018-08-03] MEDS: MIDODRINE 5 MG TAB PO SCH ×3 (08:24→17:03)
[2018-08-03] MEDS: ASPIRIN 81 MG TAB PO SCH (08:24)
[2018-08-03] MEDS: CALCIUM/VITAMIN D (500/200) TAB PO SCH ×2 (08:24→21:21)
[2018-08-03] MEDS: MULTIVIT/CA CARB/B CMPLX/FA TAB PO SCH (08:24)
[2018-08-03] MEDS: HYDROCORTISONE 100 MG INJ IV SCH (08:24)
[2018-08-03] MEDS: COLLAGENASE 5 GM (UD JAR) TOP SCH (08:24)
[2018-08-03] MEDS: BALSAM PERU/CASTOR OIL 60 GM TUBE TOP SCH ×2 (08:25→21:21)
[2018-08-03] MEDS: INSULIN GLARGINE [LANTus] (100 UNITS/ML) SYG SC SCH (08:25)
[2018-08-03] MEDS: FENTAnyl (DRIP) 1000 mcg/100mL 100 ML IV SCH (10:14)
--- NOTE | 2018-08-03 10:30 | CONS ---
Consult Date/Type/Reason Admit Date/Time Jul 13, 2018 at 21:32 Initial Consult Date Type of Consult Pulmonary Requesting Provider: ADAM DUARTE MD Date/Time of Note DATE: 08/03/18 TIME: 10:27 Subjective No changes, somnolent on pressors. Objective Vital Signs Date Temp Pulse Resp B/P (MAP) Pulse Ox O2 O2 Flow FiO2 Time Delivery Rate 08/03/18 74 10:00 08/03/18 15 108/50 97 09:30 (69) 08/03/18 Mechanical 09:00 Ventilator 08/03/18 35 08:00 08/03/18 97.7 08:00 Intake and Output 08/02/18 08/02/18 08/03/18 1515:00 23:00 07:00 IntakeIntake Total 653.52 ml 519.78 ml 628.87 ml OutputOutput Total 0 ml 0 ml 0 ml BalanceBalance 653.52 ml 519.78 ml 628.87 ml Exam PHYSICAL EXAMINATION: GENERAL: Chronically ill appearing lady on mechanical ventilation. VITAL SIGNS: Opens eyes attempting to communicate. NECK: Supple. No JVD or lymphadenopathy. CARDIAC: S1, S2, no added sounds or murmurs. CHEST: Diminished air entry bilaterally. ABDOMEN: Soft, nontender. No guarding or rebound. EXTREMITIES: No cyanosis, clubbing or edema. NEUROLOGIC: Unable to assess. Vent Setting Ventilator Support Mode: AC Fraction of Inspired Oxygen pe: 35 Positive End Expiratory Pressu: 5.0 Results/Medications Result Diagram: 08/03/18 0430 08/03/18 0430 Results 24 hrs Laboratory Tests Test 08/02/18 13:05 08/02/18 18:01 08/02/18 21:45 08/03/18 01:16 Bedside Glucose 212 183 142 139 Test 08/03/18 04:30 08/03/18 05:56 08/03/18 08:23 White Blood Count 16.6 H Red Blood Count 2.76 L Hemoglobin 9.0 L Hematocrit 26.4 L Mean Corpuscular 95.7 Volume Mean Corpuscular 32.6 Hemoglobin Mean Corpuscular 34.1 Hemoglobin Concent Red Cell 21.5 H Distribution Width Platelet Count 140 # Mean Platelet Volume 12.8 H Immature 1.100 H Granulocytes % Neutrophils % 88.5 H Lymphocytes % 5.4 L Monocytes % 4.3 Eosinophils % 0.6 Basophils % 0.1 Nucleated Red Blood 0.4 H Cells % Immature 0.190 H Granulocytes # Neutrophils # 14.7 H Lymphocytes # 0.9 Monocytes # 0.7 Eosinophils # 0.1 Basophils # 0.0 Nucleated Red Blood 0.1 H Cells # Sodium Level 131 L Potassium Level 4.1 Chloride Level 99 Carbon Dioxide Level 25 Anion Gap 7 Blood Urea Nitrogen 32 H Creatinine 1.89 H Est Glomerular Filtrat Rate mL/min Glucose Level 158 Calcium Level 7.5 L Bedside Glucose 165 171 Medications Current Medications Multivit/Ca Carb/ B Cmplx/FA/Prenat (Shyann-Raj) 1 tab DAILY PO Last administered on 08/03/18at 08:24; Admin Dose 1 TAB; Start 07/14/18 at 09:00 Tramadol HCl (Ultram) 50 mg TID PRN PO PAIN LEVEL 6-10 Last administered on 07/24/18at 03:35; Admin Dose 50 MG; Start 07/13/18 at 23:30 Acetaminophen (Tylenol Tab) 650 mg Q6H PRN PO MILD PAIN(1-3)OR ELEVATED TEMP; Start 07/13/18 at 23:30 Hydralazine HCl (Apresoline) 20 mg Q6H PRN IV sbp over 170 Last administered on 07/14/18at 11:56; Admin Dose 20 MG; Start 07/13/18 at 23:30 Miscellaneous Information 1 ea NOTE XX ; Start 07/13/18 at 23:30 Glucose (Glutose) 15 gm Q15M PRN PO DECREASED GLUCOSE; Start 07/13/18 at 23:30 Glucose (Glutose) 22.5 gm Q15M PRN PO DECREASED GLUCOSE; Start 07/13/18 at 23:30 Dextrose (D50w Syringe) 25 ml Q15M PRN IV DECREASED GLUCOSE Last administered on 07/24/18at 08:19; Admin Dose 25 ML; Start 07/13/18 at 23:30 Dextrose (D50w Syringe) 50 ml Q15M PRN IV DECREASED GLUCOSE; Start 07/13/18 at 23:30 Glucagon (Glucagen) 1 mg Q15M PRN IM DECREASED GLUCOSE; Start 07/13/18 at 23:30 Glucose (Glutose) 15 gm Q15M PRN BUCCAL DECREASED GLUCOSE; Start 07/13/18 at 23:30 Ondansetron HCl (Zofran Inj) 4 mg Q4H PRN IV NAUSEA AND/OR VOMITING Last administered on 07/23/18 16:30; Admin Dose 4 MG; Start 07/14/18 at 00:30 Miscellaneous Information (Pending Santyl Order For Wound Care) This patient easley... PRN PRN XX WOUND CARE; Start 07/14/18 at 04:30 Heparin Sodium (Porcine) (Heparin (1000 Units/ml)) 4,000 unit AFTER DIALYSIS CATHETER Last administered on 07/27/18 20:16; Admin Dose 4,000 UNIT; Start 07/17/18 at 12:30 Diagnostic Test (Pha) (Accu-Chek) 1 ea 02 XX Last administered on 08/02/18 00:42; Admin Dose 1 EA; Start 07/19/18 at 02:00 IV Flush (NS 3 ml) 3 ml PER PROTOCOL IV ; Start 07/20/18 at 11:30 Calcium/Vitamin D (Oyster Shell/ Vit-D (500/200)) 1 tab BID PO Last administered on 08/03/18 08:24; Admin Dose 1 TAB; Start 07/20/18 at 21:00 Metoprolol Tartrate (Lopressor) 5 mg Q4H PRN IV HR > 110; Hold if SBP < 100 Last administered on 07/21/18 01:52; Admin Dose 5 MG; Start 07/21/18 at 02:00 Metoclopramide HCl (Reglan) 10 mg Q6H PRN IV NAUSEA AND/OR VOMITING Last administered on 07/26/18 22:31; Admin Dose 10 MG; Start 07/23/18 at 20:30 Norepinephrine 250 ml @ 1.875 mls/ hr TITRATE IV Last administered on 07/29/18 01:20; Admin Dose 3.75 MLS/HR; Start 07/24/18 at 11:00 Collagenase (Santyl) 1 applic DAILY TOP Last administered on 08/03/18 08:24; Admin Dose 1 APPLIC; Start 07/25/18 at 09:00 Phenylephrine HCl 80 mg/Dextrose 250 ml @ 18.75 mls/ hr TITRATE IV Last administered on 08/03/18 10:11; Admin Dose 31.88 MLS/HR; Start 07/24/18 at 20:30 Insulin Aspart (Novolog Insulin Pen) NOVOLOG *MILD* ALGORI... Q4 SC Last administered on 08/03/18 08:26; Admin Dose 1 UNIT; Start 07/24/18 at 21:00 Propofol 100 ml @ 1.851 mls/ hr Q12H IV Last administered on 07/28/18 20:30; Admin Dose 5.553 MLS/HR; Start 07/25/18 at 13:00 Fentanyl 100 ml @ 2.5 mls/hr TITRATE IV Last administered on 08/03/18 10:14; Admin Dose 5 MLS/HR; Start 07/26/18 at 11:00 Vancomycin HCl (Vanco Iv Per Pharmacy) VANCOMYCIN PER PHARMACY PER PROTOCOL XX ; Start 07/28/18 at 10:30 Cefepime HCl 50 ml @ 100 mls/hr Q24H IVPB Last administered on 08/01/18 15:53; Admin Dose 100 MLS/HR; Start 07/30/18 at 12:00 Lansoprazole (Prevacid) 30 mg BID@0600,1800 PO Last administered on 08/03/18 05:57; Admin Dose 30 MG; Start 07/30/18 at 18:00 Aspirin (Aspirin) 81 mg DAILY PO Last administered on 08/03/18 08:24; Admin Dose 81 MG; Start 07/30/18 at 11:30 Atorvastatin Calcium (Lipitor) 20 mg HS PO Last administered on 08/02/18 21:46; Admin Dose 20 MG; Start 07/30/18 at 21:00 Midodrine (Proamatine) 10 mg TID@,,17 PO Last administered on 08/03/18 08:24; Admin Dose 10 MG; Start 07/30/18 at 13:00 Insulin Glargine (Lantus) 15 units DAILY@0800 SC Last administered on 08/03/18 08:25; Admin Dose 15 UNITS; Start 07/31/18 at 09:00 Midazolam HCl 50 ml @ 1 mls/hr TITRATE IV Last administered on 08/02/18 09:55; Admin Dose 1 MLS/HR; Start 08/02/18 at 10:00 Hydrocortisone (Solu-Cortef) 10 mg DAILY IV Last administered on 2/23/19at 08:24; Admin Dose 10 MG; Start 08/03/18 at 09:00 Epoetin Derick (Epogen (Esrd)) 3,000 units TuThSa@17 SC ; Start 08/03/18 at 17:00 Levothyroxine Sodium (Synthroid) 100 mcg DAILY@06 PO Last administered on 08/03/18at 05:57; Admin Dose 100 MCG; Start 08/03/18 at 06:00 Assessment/Plan Hospital Course (Demo Recall) IMPRESSION 1. Cardiopulmonary arrest. Prolonged CPR with ACLS protocol. Significant ence phalopathy 2. Multiple cardiopulmonary arrests and prolonged hypotension, despite this patient seems to be somewhat neurologically intact. 3. End-stage renal failure on hemodialysis. 4. Possible aspiration pneumonia. Septic shock. Requiring vasopressor support, increasing pressor requirements 5. History of severe peripheral vascular disease. 6. Possible acute GI bleed given acute drop in hemoglobin prior to cardiac arrest 7. refractory septic shock Plan 1. Vasopressor support as needed. 2. Mechanical ventilation 3. Broad-spectrum antibiotic coverage for possible aspiration. 4. GI recommendations 5. DVT and GI prophylaxis. Critical care time 40 minutes. Prognosis guarded. Family conference noted, changed to full code and family requesting trach and peg. Very poor prognosis. Consider bioethics if condition remains critical DEVAN MIDDLETON MD, [facility] Aug 03, 2018 10:30
--- NOTE | 2018-08-03 10:58 | CONS ---
Assessment/Plan Assessment/Plan Assessment/Plan (Daily) 1. Anemia, rule out gastrointestinal bleeding. -concern for GI bleed due to drop in H/H prior to cardiac arrest. -per RN bm was brown with potentially old melena, no active bleeding 2. Status post pulseless electrical activity period and cardiac arrest. 3. Ventilator-dependent respiratory failure. 4. End-stage renal disease, on dialysis. 5. 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 6. Left stump bruises. 7. Ankle fracture. 8. Cirrhosis of liver 9. Gastroparesis 10 bilateral cerebellar infarct 11 septic shock patient is on pressor support Plan Family spoke with Dr. Hernandez, chemical code only. Monitor HH and replace as necessary. Continue present care Continue tube feeds as tolerated Aspiration precautions Patient is unstable for any endoscopy procedures and there is no active GI bleeding at this point Continue on lactulose and Reglan and PPI BID. Patient is tolerating feeding no gastric residual Patient is a full code. For the long-term she may need tracheostomy and G-tube Consultation Date/Type/Reason Admit Date/Time Jul 13, 2018 at 21:32 Initial Consult Date Requesting Provider: ADAM HERNANDEZ MD Date/Time of Note DATE: 08/03/18 TIME: 10:56 24 HR Interval Summary Subjective hx not possible: pt non-verbal, pt critical Exam/Review of Systems Exam Vitals Vital Signs Date Temp Pulse Resp B/P (MAP) Pulse Ox O2 O2 Flow FiO2 Time Delivery Rate 08/03/18 76 10:30 08/03/18 15 108/50 97 09:30 (69) 08/03/18 Mechanical 09:00 Ventilator 08/03/18 35 08:00 08/03/18 97.7 08:00 Intake and Output 08/02/18 08/02/18 08/03/18 1515:00 23:00 07:00 IntakeIntake Total 653.52 ml 519.78 ml 628.87 ml OutputOutput Total 0 ml 0 ml 0 ml BalanceBalance 653.52 ml 519.78 ml 628.87 ml Constitutional: non-verbal Psych: confusion Head: normocephalic, atraumatic Eyes: nl conjunctiva, EOMI, nl lids, nl sclera, PERRL ENMT: nl external ears & nose, nl lips & teeth, nl nasal mucosa & septum Respiratory: diminished breath sounds Extremities: normal pulses Results Result Diagram: 08/03/18 0430 08/03/18 0430 Results 24hrs Laboratory Tests Test 08/02/18 13:05 08/02/18 18:01 08/02/18 21:45 08/03/18 01:16 Bedside Glucose 212 183 142 139 Test 08/03/18 04:30 08/03/18 05:56 08/03/18 08:23 White Blood Count 16.6 H Red Blood Count 2.76 L Hemoglobin 9.0 L Hematocrit 26.4 L Mean Corpuscular 95.7 Volume Mean Corpuscular 32.6 Hemoglobin Mean Corpuscular 34.1 Hemoglobin Concent Red Cell 21.5 H Distribution Width Platelet Count 140 # Mean Platelet Volume 12.8 H Immature 1.100 H Granulocytes % Neutrophils % 88.5 H Lymphocytes % 5.4 L Monocytes % 4.3 Eosinophils % 0.6 Basophils % 0.1 Nucleated Red Blood 0.4 H Cells % Immature 0.190 H Granulocytes # Neutrophils # 14.7 H Lymphocytes # 0.9 Monocytes # 0.7 Eosinophils # 0.1 Basophils # 0.0 Nucleated Red Blood 0.1 H Cells # Sodium Level 131 L Potassium Level 4.1 Chloride Level 99 Carbon Dioxide Level 25 Anion Gap 7 Blood Urea Nitrogen 32 H Creatinine 1.89 H Est Glomerular Filtrat Rate mL/min Glucose Level 158 Calcium Level 7.5 L Bedside Glucose 165 171 Medications Medication Current Medications Multivit/Ca Carb/ B Cmplx/FA/Prenat (Shyann-Raj) 1 tab DAILY PO Last administered on 08/03/18at 08:24; Admin Dose 1 TAB; Start 07/14/18 at 09:00 Tramadol HCl (Ultram) 50 mg TID PRN PO PAIN LEVEL 6-10 Last administered on 07/24/18at 03:35; Admin Dose 50 MG; Start 07/13/18 at 23:30 Acetaminophen (Tylenol Tab) 650 mg Q6H PRN PO MILD PAIN(1-3)OR ELEVATED TEMP; Start 07/13/18 at 23:30 Hydralazine HCl (Apresoline) 20 mg Q6H PRN IV sbp over 170 Last administered on 07/14/18at 11:56; Admin Dose 20 MG; Start 07/13/18 at 23:30 Miscellaneous Information 1 ea NOTE XX ; Start 07/13/18 at 23:30 Glucose (Glutose) 15 gm Q15M PRN PO DECREASED GLUCOSE; Start 07/13/18 at 23:30 Glucose (Glutose) 22.5 gm Q15M PRN PO DECREASED GLUCOSE; Start 07/13/18 at 23:30 Dextrose (D50w Syringe) 25 ml Q15M PRN IV DECREASED GLUCOSE Last administered on 07/24/18at 08:19; Admin Dose 25 ML; Start 07/13/18 at 23:30 Dextrose (D50w Syringe) 50 ml Q15M PRN IV DECREASED GLUCOSE; Start 07/13/18 at 23:30 Glucagon (Glucagen) 1 mg Q15M PRN IM DECREASED GLUCOSE; Start 07/13/18 at 23:30 Glucose (Glutose) 15 gm Q15M PRN BUCCAL DECREASED GLUCOSE; Start 07/13/18 at 23:30 Ondansetron HCl (Zofran Inj) 4 mg Q4H PRN IV NAUSEA AND/OR VOMITING Last administered on 07/23/18at 16:30; Admin Dose 4 MG; Start 07/14/18 at 00:30 Miscellaneous Information (Pending [facility] Order For Wound Care) This patient easley... PRN PRN XX WOUND CARE; Start 07/14/18 at 04:30 Heparin Sodium (Porcine) (Heparin (1000 Units/ml)) 4,000 unit AFTER DIALYSIS CATHETER Last administered on 07/27/18at 20:16; Admin Dose 4,000 UNIT; Start 07/17/18 at 12:30 Diagnostic Test (Pha) (Accu-Chek) 1 ea 02 XX Last administered on 08/02/18at 00:42; Admin Dose 1 EA; Start 07/19/18 at 02:00 IV Flush (NS 3 ml) 3 ml PER PROTOCOL IV ; Start 07/20/18 at 11:30 Calcium/Vitamin D (Oyster Shell/ Vit-D (500/200)) 1 tab BID PO Last admini stered on 08/03/18at 08:24; Admin Dose 1 TAB; Start 07/20/18 at 21:00 Metoprolol Tartrate (Lopressor) 5 mg Q4H PRN IV HR > 110; Hold if SBP < 100 Last administered on 07/21/18at 01:52; Admin Dose 5 MG; Start 07/21/18 at 02:00 Metoclopramide HCl (Reglan) 10 mg Q6H PRN IV NAUSEA AND/OR VOMITING Last ad ministered on 07/26/18 22:31; Admin Dose 10 MG; Start 07/23/18 at 20:30 Norepinephrine 250 ml @ 1.875 mls/ hr TITRATE IV Last administered on 07/29/18 01:20; Admin Dose 3.75 MLS/HR; Start 07/24/18 at 11:00 Collagenase (Santyl) 1 applic DAILY TOP Last administered on 08/03/18 08:24; Admin Dose 1 APPLIC; Start 07/25/18 at 09:00 Phenylephrine HCl 80 mg/Dextrose 250 ml @ 18.75 mls/ hr TITRATE IV Last administered on 08/03/18 10:11; Admin Dose 31.88 MLS/HR; Start 07/24/18 at 20:30 Insulin Aspart (Novolog Insulin Pen) NOVOLOG *MILD* ALGORI... Q4 SC Last administered on 08/03/18 08:26; Admin Dose 1 UNIT; Start 07/24/18 at 21:00 Propofol 100 ml @ 1.851 mls/ hr Q12H IV Last administered on 07/28/18 20:30; Admin Dose 5.553 MLS/HR; Start 07/25/18 at 13:00 Fentanyl 100 ml @ 2.5 mls/hr TITRATE IV Last administered on 08/03/18 10:14; Admin Dose 5 MLS/HR; Start 07/26/18 at 11:00 Vancomycin HCl (Vanco Iv Per Pharmacy) VANCOMYCIN PER PHARMACY PER PROTOCOL XX ; Start 07/28/18 at 10:30 Cefepime HCl 50 ml @ 100 mls/hr Q24H IVPB Last administered on 08/01/18 15:53; Admin Dose 100 MLS/HR; Start 07/30/18 at 12:00 Lansoprazole (Prevacid) 30 mg BID@0600,1800 PO Last administered on 08/03/18 05:57; Admin Dose 30 MG; Start 07/30/18 at 18:00 Aspirin (Aspirin) 81 mg DAILY PO Last administered on 08/03/18 08:24; Admin Dose 81 MG; Start 07/30/18 at 11:30 Atorvastatin Calcium (Lipitor) 20 mg HS PO Last administered on 08/02/18at 21:46; Admin Dose 20 MG; Start 07/30/18 at 21:00 Midodrine (Proamatine) 10 mg TID@09,13,17 PO Last administered on 08/03/18at 08:24; Admin Dose 10 MG; Start 07/30/18 at 13:00 Insulin Glargine (Lantus) 15 units DAILY@0800 SC Last administered on 08/03/18 08:25; Admin Dose 15 UNITS; Start 07/31/18 at 09:00 Midazolam HCl 50 ml @ 1 mls/hr TITRATE IV Last administered on 08/02/18 09:55; Admin Dose 1 MLS/HR; Start 08/02/18 at 10:00 Hydrocortisone (Solu-Cortef) 10 mg DAILY IV Last administered on 08/03/18at 08:24; Admin Dose 10 MG; Start 08/03/18 at 09:00 Epoetin Derick (Epogen (Esrd)) 3,000 units TuThSa@17 SC ; Start 08/03/18 at 17:00 Levothyroxine Sodium (Synthroid) 100 mcg DAILY@06 PO Last administered on 08/03/18at 05:57; Admin Dose 100 MCG; Start 08/03/18 at 06:00 GLORIA TURNER MD Aug 03, 2018 10:58
--- NOTE | 2018-08-03 11:20 | CONS ---
Assessment/Plan Assessment/Plan Hospital Course (Demo Recall) IMP: 1. Preoperative for LE ORIF-NL EF by echo with mod-sev TR. Lexiscan with NL EF and partially reversible inferior wall defect. Thus patient has no cardiac contraindication to proceeding to OR on current medications but at moderate to high risk. Now post-op s/p ORIF 2.Positive troponin 3.BRadycardia to 40's/stable BP. S Misael- now improved with decrease in dose of clonidine and having short runs of tachycardia/SVT. ? Now in AF s/p code yesterday 4.HTN-uncontrolled at this time 5.ankle fracture 6.ESRD on HD 7. TR-mod-sev 8. ? sick euthyroid-elevated TSH and Free t4 9. Patient with PEA and VFA this am requiring ACLS and intubation protocol on onset during HD 10. anemia-acute drop. ? where bleeding,internal given abd pain. Now s/p transfusion PRBC's/possible melena overnight 11.PAF- in AF at this time. Reasonable rates on amiodarone 12. Nstemi- downtrending cardiac enzymes significantly 14. hypotension-on jake- s/p repeat echo 07/29 with EF slightly lower but still wnl 50% 15. UTI Recc -ICU -Continue Jake with weaning as tolerated -continue vent support -Continue ASA as tolerated. Not on systemic anticoagulation secondary to anemia/GIB -transfuse PRBC's as necessary -HD as tolearted only, ongoing now -trend cardiac enzymes -Contineu abx's and f/u cx data -ongoing family discussion about direction of care with patient now currently full code Consultation Date/Type/Reason Admit Date/Time Jul 13, 2018 at 21:32 Initial Consult Date 07/16/18 Type of Consult Cardiology Reason for Consultation hypotension Requesting Provider: ADAM DUARTE MD Date/Time of Note DATE: 08/03/18 TIME: 11:17 Exam/Review of Systems Vital Signs Vitals Vital Signs Date Temp Pulse Resp B/P (MAP) Pulse Ox O2 O2 Flow FiO2 Time Delivery Rate 08/03/18 81 11:00 08/03/18 15 108/50 97 09:30 (69) 08/03/18 Mechanical 09:00 Ventilator 08/03/18 35 08:00 08/03/18 97.7 08:00 Intake and Output 08/02/18 08/02/18 08/03/18 1515:00 23:00 07:00 IntakeIntake Total 653.52 ml 519.78 ml 628.87 ml OutputOutput Total 0 ml 0 ml 0 ml BalanceBalance 653.52 ml 519.78 ml 628.87 ml Exam Exam Review of Systems: CONSTITUTIONAL: No fevers, chills. PULMONARY: intubated CARDIOVASCULAR: No chest pain/palpitations GASTROINTESTINAL: No nausea/vomiting. GENITOURINARY: No hematuria/dysuria. MUSCULOSKELETAL: No myagias/arthalgias. PSYCHIATRIC: The patient denies depression. NEUROLOGIC: No weakness Constitutional: other (encephalopathic) Psych: no complaints Head: normocephalic ENMT: mucosa pink and moist Neck: supple, jvd (9 cm water) Respiratory: diminished breath sounds (at bases/B) Cardiovascular: regular rate and rhythm Gastrointestinal: soft, non-tender Musculoskeletal: muscle weakness (generalized) Extremities: edema (trace/B) Neurological: other (No focal deficits) Labs Result Diagram: 08/03/1842908/03/18 0430 Results 24hrs Laboratory Tests Test 08/02/18 13:05 08/02/18 18:01 08/02/18 21:45 08/03/18 01:16 Bedside Glucose 212 183 142 139 Test 08/03/18 04:30 08/03/18 05:56 08/03/18 08:23 White Blood Count 16.6 H Red Blood Count 2.76 L Hemoglobin 9.0 L Hematocrit 26.4 L Mean Corpuscular 95.7 Volume Mean Corpuscular 32.6 Hemoglobin Mean Corpuscular 34.1 Hemoglobin Concent Red Cell 21.5 H Distribution Width Platelet Count 140 # Mean Platelet Volume 12.8 H Immature 1.100 H Granulocytes % Neutrophils % 88.5 H Lymphocytes % 5.4 L Monocytes % 4.3 Eosinophils % 0.6 Basophils % 0.1 Nucleated Red Blood 0.4 H Cells % Immature 0.190 H Granulocytes # Neutrophils # 14.7 H Lymphocytes # 0.9 Monocytes # 0.7 Eosinophils # 0.1 Basophils # 0.0 Nucleated Red Blood 0.1 H Cells # Sodium Level 131 L Potassium Level 4.1 Chloride Level 99 Carbon Dioxide Level 25 Anion Gap 7 Blood Urea Nitrogen 32 H Creatinine 1.89 H Est Glomerular Filtrat Rate mL/min Glucose Level 158 Calcium Level 7.5 L Bedside Glucose 165 171 Medications Medications Current Medications Multivit/Ca Carb/ B Cmplx/FA/Prenat (Shyann-Raj) 1 tab DAILY PO Last administered on 08/03/18at 08:24; Admin Dose 1 TAB; Start 07/14/18 at 09:00 Tramadol HCl (Ultram) 50 mg TID PRN PO PAIN LEVEL 6-10 Last administered on 07/24/18at 03:35; Admin Dose 50 MG; Start 07/13/18 at 23:30 Acetaminophen (Tylenol Tab) 650 mg Q6H PRN PO MILD PAIN(1-3)OR ELEVATED TEMP; Start 07/13/18 at 23:30 Hydralazine HCl (Apresoline) 20 mg Q6H PRN IV sbp over 170 Last administered on 07/14/18at 11:56; Admin Dose 20 MG; Start 07/13/18 at 23:30 Miscellaneous Information 1 ea NOTE XX ; Start 07/13/18 at 23:30 Glucose (Glutose) 15 gm Q15M PRN PO DECREASED GLUCOSE; Start 07/13/18 at 23:30 Glucose (Glutose) 22.5 gm Q15M PRN PO DECREASED GLUCOSE; Start 07/13/18 at 23:30 Dextrose (D50w Syringe) 25 ml Q15M PRN IV DECREASED GLUCOSE Last administered on 07/24/18at 08:19; Admin Dose 25 ML; Start 07/13/18 at 23:30 Dextrose (D50w Syringe) 50 ml Q15M PRN IV DECREASED GLUCOSE; Start 07/13/18 at 23:30 Glucagon (Glucagen) 1 mg Q15M PRN IM DECREASED GLUCOSE; Start 07/13/18 at 23:30 Glucose (Glutose) 15 gm Q15M PRN BUCCAL DECREASED GLUCOSE; Start 07/13/18 at 23:30 Ondansetron HCl (Zofran Inj) 4 mg Q4H PRN IV NAUSEA AND/OR VOMITING Last administered on 07/23/18at 16:30; Admin Dose 4 MG; Start 07/14/18 at 00:30 [facility] This patient easley... PRN PRN XX WOUND CARE; Start 07/14/18 at 04:30 Heparin Sodium (Porcine) (Heparin (1000 Units/ml)) 4,000 unit AFTER DIALYSIS CATHETER Last administered on 07/27/18 20:16; Admin Dose 4,000 UNIT; Start 07/17/18 at 12:30 Diagnostic Test (Pha) (Accu-Chek) 1 ea 02 XX Last administered on 08/02/18 00:42; Admin Dose 1 EA; Start 07/19/18 at 02:00 IV Flush (NS 3 ml) 3 ml PER PROTOCOL IV ; Start 07/20/18 at 11:30 Calcium/Vitamin D (Oyster Shell/ Vit-D (500/200)) 1 tab BID PO Last admini stered on 08/03/18 08:24; Admin Dose 1 TAB; Start 07/20/18 at 21:00 Metoprolol Tartrate (Lopressor) 5 mg Q4H PRN IV HR > 110; Hold if SBP < 100 Last administered on 07/21/18 01:52; Admin Dose 5 MG; Start 07/21/18 at 02:00 Metoclopramide HCl (Reglan) 10 mg Q6H PRN IV NAUSEA AND/OR VOMITING Last ad ministered on 07/26/18 22:31; Admin Dose 10 MG; Start 07/23/18 at 20:30 Norepinephrine 250 ml @ 1.875 mls/ hr TITRATE IV Last administered on 07/29/18 01:20; Admin Dose 3.75 MLS/HR; Start 07/24/18 at 11:00 Collagenase (Santyl) 1 applic DAILY TOP Last administered on 08/03/18 08:24; Admin Dose 1 APPLIC; Start 07/25/18 at 09:00 Phenylephrine HCl 80 mg/Dextrose 250 ml @ 18.75 mls/ hr TITRATE IV Last administered on 08/03/18 10:11; Admin Dose 31.88 MLS/HR; Start 07/24/18 at 20:30 Insulin Aspart (Novolog Insulin Pen) NOVOLOG *MILD* ALGORI... Q4 SC Last administered on 08/03/18 08:26; Admin Dose 1 UNIT; Start 07/24/18 at 21:00 Propofol 100 ml @ 1.851 mls/ hr Q12H IV Last administered on 07/28/18 20:30; Admin Dose 5.553 MLS/HR; Start 07/25/18 at 13:00 Fentanyl 100 ml @ 2.5 mls/hr TITRATE IV Last administered on 08/03/18at 10:14; Admin Dose 5 MLS/HR; Start 07/26/18 at 11:00 Vancomycin HCl (Vanco Iv Per Pharmacy) VANCOMYCIN PER PHARMACY PER PROTOCOL XX ; Start 07/28/18 at 10:30 Cefepime HCl 50 ml @ 100 mls/hr Q24H IVPB Last administered on 08/01/18at 15:53; Admin Dose 100 MLS/HR; Start 07/30/18 at 12:00 Lansoprazole (Prevacid) 30 mg BID@0600,1800 PO Last administered on 08/03/18 05:57; Admin Dose 30 MG; Start 07/30/18 at 18:00 Aspirin (Aspirin) 81 mg DAILY PO Last administered on 08/03/18 08:24; Admin Dose 81 MG; Start 07/30/18 at 11:30 Atorvastatin Calcium (Lipitor) 20 mg HS PO Last administered on 08/02/18at 21:46; Admin Dose 20 MG; Start 07/30/18 at 21:00 Midodrine (Proamatine) 10 mg TID@09,13,17 PO Last administered on 08/03/18 08:24; Admin Dose 10 MG; Start 07/30/18 at 13:00 Insulin Glargine (Lantus) 15 units DAILY@0800 SC Last administered on 08/03/18 08:25; Admin Dose 15 UNITS; Start 07/31/18 at 09:00 Midazolam HCl 50 ml @ 1 mls/hr TITRATE IV Last administered on 08/02/18at 09:55; Admin Dose 1 MLS/HR; Start 08/02/18 at 10:00 Hydrocortisone (Solu-Cortef) 10 mg DAILY IV Last administered on 08/03/18 08:24; Admin Dose 10 MG; Start 08/03/18 at 09:00 Epoetin Derick (Epogen (Esrd)) 3,000 units TuThSa@17 SC ; Start 08/03/18 at 17:00 Levothyroxine Sodium (Synthroid) 100 mcg DAILY@06 PO Last administered on 08/03/18 05:57; Admin Dose 100 MCG; Start 08/03/18 at 06:00 JUSTICE HARRISON 23, 2019 11:20
--- NOTE | 2018-08-03 13:11 | PN ---
Date/Time of Note Date/Time of Note DATE: 08/03/18 TIME: 13:10 Assessment/Plan VTE Prophylaxis Risk score (from [facility] [place]0 risk: 32 SCD applied (from [facility] [place]): No SCD contraindicated: bilateral amputee Pharmacological prophylaxis: NA/contraindicated Pharm contraindication: hemorrhagic infarct Lines/Catheters IV Catheter Type (from [facility]): A Line Urinary Cath still in place: Yes Reason Cath still needed: urinary retention Assessment/Plan Hospital Course # Cardiac pulmonary arrest s/p vfib # Respiratory failure s/p intubation # Hypotension s/p shock? cardiac vs hypovolemic/septic # LE anemia likely to secondary to GI bleed H&H stable status post unit 2 units of blood # Hyperkalemia due to missed hemodialysis.due to fall # Acute comminuted fractures of the distal tibia and fibula that involve the distal tibiofibular joint. Distal tibia fracture extends to within 0.3 cm of the tibial plafond but does not involve the articular surface. The appearance is in keeping with an extra-articular Pilon fracture. #. Hyponatremia. resolved #. Metabolic acidosis. # Cardiomegaly and pulmonary edema. #. Aortic atherosclerosis. #. History of congestive heart failure. # History of diabetic retinopathy, nephropathy. #. Hypoalbuminemia. # The patient has right lower extremity brace.with fracture #. Left stump bruise now noticed to have a fracture on the left hip on the x-ra ys # ? AFIB. # Congestive heart failure by x-ray, question systolic versus diastolic, partha trejo acute on chronic given presentation. # elevated troponin in the setting of end-stage kidney disease # Epigastric pain r/o gastritis/ GB disease> CT scan was pending # elevated troponin in the setting of cardiac arrest downtrending # Leukocytosis # AMS ? sedation vs s/p cpr arrest with encephalopathy , now with new cerebellar infarcts Family meeting tmw Assessment/Plan - family meeting was yesterday, they wish trach and PEG -MRI Of the brain pending too unstable - Seen by neurology > poor prognosis - cw Low-dose aspirin statins/statin - Hd was yesterday - cw lantus - cw vancomycin/cefepime -Feeding as tolerated - Hb stable, no evidence of bleeding, even increased -Dr. [place] was also called for fracture of the left hip> intervention currently as patient is unstable -Hold anticoagulation due to bleeding - fu cardiac/pul recs Result Diagram: 08/03/18 0430 08/03/18 0430 Results 24hrs Laboratory Tests Test 08/02/18 18:01 08/02/18 21:45 08/03/18 01:16 08/03/18 04:30 Bedside Glucose 183 142 139 White Blood Count 16.6 H Red Blood Count 2.76 L Hemoglobin 9.0 L Hematocrit 26.4 L Mean Corpuscular 95.7 Volume Mean Corpuscular 32.6 Hemoglobin Mean Corpuscular 34.1 Hemoglobin Concent Red Cell 21.5 H Distribution Width Platelet Count 140 # Mean Platelet Volume 12.8 H Immature 1.100 H Granulocytes % Neutrophils % 88.5 H Lymphocytes % 5.4 L Monocytes % 4.3 Eosinophils % 0.6 Basophils % 0.1 Nucleated Red Blood 0.4 H Cells % Immature 0.190 H Granulocytes # Neutrophils # 14.7 H Lymphocytes # 0.9 Monocytes # 0.7 Eosinophils # 0.1 Basophils # 0.0 Nucleated Red Blood 0.1 H Cells # Sodium Level 131 L Potassium Level 4.1 Chloride Level 99 Carbon Dioxide Level 25 Anion Gap 7 Blood Urea Nitrogen 32 H Creatinine 1.89 H Est Glomerular Filtrat Rate mL/min Glucose Level 158 Calcium Level 7.5 L Test 08/03/18 05:56 08/03/18 08:23 Bedside Glucose 165 171 Subjective 24 Hr Interval Summary Free Text/Dictation orally intubated Subjective hx not possible: pt non-verbal Exam/Review of Systems Exam Vitals Vital Signs Date Temp Pulse Resp B/P (MAP) Pulse Ox O2 O2 Flow FiO2 Time Delivery Rate 08/03/18 89 12:19 08/03/18 50 12:00 08/03/18 97.6 19 99/49 (66) 94 Mechanical 12:00 Ventilator Intake and Output 08/02/18 08/02/18 08/03/18 1515:00 23:00 07:00 IntakeIntake Total 653.52 ml 519.78 ml 628.87 ml OutputOutput Total 0 ml 0 ml 0 ml BalanceBalance 653.52 ml 519.78 ml 628.87 ml Exam sedated , orally intubated Head: normocephalic Neck: supple Respiratory: diminished breath sounds Cardiovascular: regular rate and rhythm Gastrointestinal: soft, other (NG tube with feeding) Genitourinary - Female: other (neff) Extremities: other (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) Results Results 24hrs Laboratory Tests Test 08/02/18 18:01 08/02/18 21:45 08/03/18 01:16 08/03/18 04:30 Bedside Glucose 183 142 139 White Blood Count 16.6 H Red Blood Count 2.76 L Hemoglobin 9.0 L Hematocrit 26.4 L Mean Corpuscular 95.7 Volume Mean Corpuscular 32.6 Hemoglobin Mean Corpuscular 34.1 Hemoglobin Concent Red Cell 21.5 H Distribution Width Platelet Count 140 # Mean Platelet Volume 12.8 H Immature 1.100 H Granulocytes % Neutrophils % 88.5 H Lymphocytes % 5.4 L Monocytes % 4.3 Eosinophils % 0.6 Basophils % 0.1 Nucleated Red Blood 0.4 H Cells % Immature 0.190 H Granulocytes # Neutrophils # 14.7 H Lymphocytes # 0.9 Monocytes # 0.7 Eosinophils # 0.1 Basophils # 0.0 Nucleated Red Blood 0.1 H Cells # Sodium Level 131 L Potassium Level 4.1 Chloride Level 99 Carbon Dioxide Level 25 Anion Gap 7 Blood Urea Nitrogen 32 H Creatinine 1.89 H Est Glomerular Filtrat Rate mL/min Glucose Level 158 Calcium Level 7.5 L Test 08/03/18 05:56 08/03/18 08:23 Bedside Glucose 165 171 Medications Medication Current Medications Multivit/Ca Carb/ B Cmplx/FA/Prenat (Shyann-Raj) 1 tab DAILY PO Last administered on 08/03/18at 08:24; Admin Dose 1 TAB; Start 07/14/18 at 09:00 Tramadol HCl (Ultram) 50 mg TID PRN PO PAIN LEVEL 6-10 Last administered on 07/24/18at 03:35; Admin Dose 50 MG; Start 07/13/18 at 23:30 Acetaminophen (Tylenol Tab) 650 mg Q6H PRN PO MILD PAIN(1-3)OR ELEVATED TEMP; Start 07/13/18 at 23:30 Hydralazine HCl (Apresoline) 20 mg Q6H PRN IV sbp over 170 Last administered on 07/14/18at 11:56; Admin Dose 20 MG; Start 07/13/18 at 23:30 Miscellaneous Information 1 ea NOTE XX ; Start 07/13/18 at 23:30 Glucose (Glutose) 15 gm Q15M PRN PO DECREASED GLUCOSE; Start 07/13/18 at 23:30 Glucose (Glutose) 22.5 gm Q15M PRN PO DECREASED GLUCOSE; Start 07/13/18 at 23:30 Dextrose (D50w Syringe) 25 ml Q15M PRN IV DECREASED GLUCOSE Last administered on 07/24/18at 08:19; Admin Dose 25 ML; Start 07/13/18 at 23:30 Dextrose (D50w Syringe) 50 ml Q15M PRN IV DECREASED GLUCOSE; Start 07/13/18 at 23:30 Glucagon (Glucagen) 1 mg Q15M PRN IM DECREASED GLUCOSE; Start 07/13/18 at 23:30 Glucose (Glutose) 15 gm Q15M PRN BUCCAL DECREASED GLUCOSE; Start 07/13/18 at 23:30 Ondansetron HCl (Zofran Inj) 4 mg Q4H PRN IV NAUSEA AND/OR VOMITING Last administered on 07/23/18 16:30; Admin Dose 4 MG; Start 07/14/18 at 00:30 Miscellaneous Information (Pending [facility] Order For Wound Care) This patient easley... PRN PRN XX WOUND CARE; Start 07/14/18 at 04:30 Heparin Sodium (Porcine) (Heparin (1000 Units/ml)) 4,000 unit AFTER DIALYSIS CATHETER Last administered on 07/27/18at 20:16; Admin Dose 4,000 UNIT; Start 07/17/18 at 12:30 Diagnostic Test (Pha) (Accu-Chek) 1 ea 02 XX Last administered on 08/02/18at 00:42; Admin Dose 1 EA; Start 07/19/18 at 02:00 IV Flush (NS 3 ml) 3 ml PER PROTOCOL IV ; Start 07/20/18 at 11:30 Calcium/Vitamin D (Oyster Shell/ Vit-D (500/200)) 1 tab BID PO Last adm inistered on 08/03/18at 08:24; Admin Dose 1 TAB; Start 07/20/18 at 21:00 Metoprolol Tartrate (Lopressor) 5 mg Q4H PRN IV HR > 110; Hold if SBP < 100 Last administered on 07/21/18at 01:52; Admin Dose 5 MG; Start 07/21/18 at 02:00 Metoclopramide HCl (Reglan) 10 mg Q6H PRN IV NAUSEA AND/OR VOMITING Last administered on 07/26/18 22:31; Admin Dose 10 MG; Start 07/23/18 at 20:30 Norepinephrine 250 ml @ 1.875 mls/ hr TITRATE IV Last administered on 07/29/18 01:20; Admin Dose 3.75 MLS/HR; Start 07/24/18 at 11:00 Collagenase (Santyl) 1 applic DAILY TOP Last administered on 08/03/18 08:24; Admin Dose 1 APPLIC; Start 07/25/18 at 09:00 Phenylephrine HCl 80 mg/Dextrose 250 ml @ 18.75 mls/ hr TITRATE IV Last administered on 08/03/18 10:11; Admin Dose 31.88 MLS/HR; Start 07/24/18 at 20:30 Insulin Aspart (Novolog Insulin Pen) NOVOLOG *MILD* ALGORI... Q4 SC Last administered on 08/03/18 08:26; Admin Dose 1 UNIT; Start 07/24/18 at 21:00 Propofol 100 ml @ 1.851 mls/ hr Q12H IV Last administered on 07/28/18 20:30; Admin Dose 5.553 MLS/HR; Start 07/25/18 at 13:00 Fentanyl 100 ml @ 2.5 mls/hr TITRATE IV Last administered on 08/03/18 10:14; Admin Dose 5 MLS/HR; Start 07/26/18 at 11:00 Vancomycin HCl (Vanco Iv Per Pharmacy) VANCOMYCIN PER PHARMACY PER PROTOCOL XX ; Start 07/28/18 at 10:30 Cefepime HCl 50 ml @ 100 mls/hr Q24H IVPB Last administered on 08/01/18 15:53; Admin Dose 100 MLS/HR; Start 07/30/18 at 12:00 Lansoprazole (Prevacid) 30 mg BID@0600,1800 PO Last administered on 08/03/18 05:57; Admin Dose 30 MG; Start 07/30/18 at 18:00 Aspirin (Aspirin) 81 mg DAILY PO Last administered on 08/03/18 08:24; Admin Dose 81 MG; Start 07/30/18 at 11:30 Atorvastatin Calcium (Lipitor) 20 mg HS PO Last administered on 2/22/19at 21:46; Admin Dose 20 MG; Start 07/30/18 at 21:00 Midodrine (Proamatine) 10 mg TID@09,13,17 PO Last administered on 08/03/18 08:24; Admin Dose 10 MG; Start 07/30/18 at 13:00 Insulin Glargine (Lantus) 15 units DAILY@0800 SC Last administered on 08/03/18 08:25; Admin Dose 15 UNITS; Start 07/31/18 at 09:00 Midazolam HCl 50 ml @ 1 mls/hr TITRATE IV Last administered on 08/02/18 09:55; Admin Dose 1 MLS/HR; Start 08/02/18 at 10:00 Hydrocortisone (Solu-Cortef) 10 mg DAILY IV Last administered on 08/03/18 08:24; Admin Dose 10 MG; Start 08/03/18 at 09:00 Epoetin Derick (Epogen (Esrd)) 3,000 units TuThSa@17 SC ; Start 08/03/18 at 17:00 Levothyroxine Sodium (Synthroid) 100 mcg DAILY@06 PO Last administered on 08/03/18 05:57; Admin Dose 100 MCG; Start 08/03/18 at 06:00 ANAYELI KEYES Aug 03, 2018 13:11
[2018-08-03] MEDS: CEFEPIME 1GM/50 ML IVPB SCH (13:24)
[2018-08-03] MEDS: MIDAZOLAM (DRIP) 50 mg/50 mL 50 ML IV SCH (14:52)
[2018-08-03] MEDS: EPOETIN 3000 UNITS/1 ML INJ (ESRD) SC SCH (17:05)
[2018-08-03] MEDS: ATORVASTATIN 20 MG TAB PO SCH (21:20)
[2018-08-04] VITALS (99 sets, daily range): BP systolic 82–125; BP diastolic 26–93; PULSE 68–93; RESP 9–47
[2018-08-04] MEDS: INSULIN ASPART [NOVOLOG] 3 ML PEN SC SCH ×6 (01:00→21:29)
[2018-08-04] MEDS: PROPOFOL 100 ML IV SCH ×2 (01:00→12:16)
[2018-08-04] MEDS: ACCU-CHEK XX SCH (02:00)
[2018-08-04] MEDS: PHENYLephrine 80 MG in DEXTROSE 5% 242 ML IV SCH ×2 (04:26→15:36)
[2018-08-04] MEDS: LANSOPRAZOLE 30 MG CAP PO SCH ×2 (05:46→17:03)
[2018-08-04] MEDS: LEVOTHYROXINE 100 MCG TAB PO SCH (05:46)
[2018-08-04] MEDS: FENTAnyl (DRIP) 1000 mcg/100mL 100 ML IV SCH (06:36)
[2018-08-04] MEDS: COLLAGENASE 5 GM (UD JAR) TOP SCH ×2 (09:14→21:24)
[2018-08-04] MEDS: BALSAM PERU/CASTOR OIL 60 GM TUBE TOP SCH ×2 (09:14→21:24)
[2018-08-04] MEDS: HYDROCORTISONE 100 MG INJ IV SCH ×3 (09:14→21:14)
[2018-08-04] MEDS: CALCIUM/VITAMIN D (500/200) TAB PO SCH ×2 (09:15→21:15)
[2018-08-04] MEDS: MULTIVIT/CA CARB/B CMPLX/FA TAB PO SCH (09:15)
[2018-08-04] MEDS: MIDODRINE 5 MG TAB PO SCH ×3 (09:15→17:03)
[2018-08-04] MEDS: ASPIRIN 81 MG TAB PO SCH (09:15)
[2018-08-04] MEDS: INSULIN GLARGINE [LANTus] (100 UNITS/ML) SYG SC SCH (09:17)
--- NOTE | 2018-08-04 10:40 | CONS ---
Consult Date/Type/Reason Admit Date/Time Jul 13, 2018 at 21:32 Initial Consult Date Type of Consult Pulmonary Requesting Provider: ADAM DUARTE MD Date/Time of Note DATE: 08/04/18 TIME: 10:38 Subjective Patient remains somnolent on mechanical ventilation. Hypoxemia and ET tube adjustment this morning. Objective Vital Signs Date Temp Pulse Resp B/P (MAP) Pulse Ox O2 O2 Flow FiO2 Time Delivery Rate 08/04/18 89 08:00 08/04/18 20 103/39 92 07:30 (60) 08/04/18 Mechanical 07:00 Ventilator 08/04/18 30 05:30 08/04/18 97.9 04:00 Intake and Output 08/03/18 08/03/18 08/04/18 1515:00 23:00 07:00 IntakeIntake Total 721.53 ml 563.01 ml 589.0 ml OutputOutput Total 2000 ml 0 ml 0 ml BalanceBalance -1278.47 ml 563.01 ml 589.0 ml Exam PHYSICAL EXAMINATION: GENERAL: Chronically ill appearing lady on mechanical ventilation. VITAL SIGNS: Opens eyes attempting to communicate. NECK: Supple. No JVD or lymphadenopathy. CARDIAC: S1, S2, no added sounds or murmurs. CHEST: Diminished air entry bilaterally. ABDOMEN: Soft, nontender. No guarding or rebound. EXTREMITIES: No cyanosis, clubbing or edema. NEUROLOGIC: Unable to assess. Vent Setting Ventilator Support Mode: AC, VC plus Fraction of Inspired Oxygen pe: 30 Positive End Expiratory Pressu: 5.0 Results/Medications Result Diagram: 08/04/18 0430 08/04/18 0430 Results 24 hrs Laboratory Tests Test 08/03/18 13:23 08/03/18 17:08 08/03/18 21:23 08/04/18 01:46 Bedside Glucose 150 124 83 108 Test 08/04/18 04:30 08/04/18 05:49 08/04/18 07:00 08/04/18 09:16 White Blood Count 14.1 H Red Blood Count 2.63 L Hemoglobin 8.6 L Hematocrit 25.7 L Mean Corpuscular 97.7 Volume Mean Corpuscular 32.7 Hemoglobin Mean Corpuscular 33.5 Hemoglobin Concen t Red Cell 22.5 H Distribution Width Platelet Count 130 L Mean Platelet 13.0 H Volume Immature 1.300 H Granulocytes % Neutrophils % 88.3 H Lymphocytes % 5.5 L Monocytes % 3.8 Eosinophils % 0.9 Basophils % 0.2 Nucleated Red 0.9 H Blood Cells % Immature 0.190 H Granulocytes # Neutrophils # 12.5 H Lymphocytes # 0.8 Monocytes # 0.5 Eosinophils # 0.1 Basophils # 0.0 Nucleated Red 0.1 H Blood Cells # Sodium Level 131 L Potassium Level 3.6 Chloride Level 97 Carbon Dioxide 26 Level Anion Gap 8 Blood Urea 23 H Nitrogen Creatinine 1.57 H Est Glomerular Filtrat Rate mL/min Glucose Level 118 # Calcium Level 7.7 L Random Vancomycin 13.5 Level Bedside Glucose 124 175 Blood Gas Blood arterial Specimen Source Arterial Blood 08/04/2018 7:47:1 Date Drawn 3 AM Arterial Blood pH 7.477 H (Temp corrected) Arterial Blood 34.9 L pCO2 (Temp correct) Arterial Blood 47.7 *L pO2 (Temp corrected) Arterial Blood 25.2 HCO3 Arterial Blood 1.8 Base Excess Arterial Blood 85.6 L Oxygen Saturation Low Test ACCEPTAB Arterial Blood Right Radial Gas Puncture Site Arterial 0.9 Blood Carboxyhemo globin Arterial Blood 0.3 Methemoglobin Blood Gas A-a O2 125.2 H Differential Oxyhemoglobin 84.6 L Percent Blood Gas 37.0 Temperature Blood Gas 10.0 Respiration Rate Blood Gas Actual 18 Respiration Rate Blood Gas VENT - AC Modality FiO2 30.0 Blood Gas Tidal 400.0 Volume Blood Gas Low 5.0 PEEP Setting Blood Gas K GALDALYO RN Critical Value Read Back Blood Gas DT Notified Whom Blood Gas 08/04/2018 8:07:4 Notified Time 6 AM Medications Current Medications Multivit/Ca Carb/ B Cmplx/FA/Prenat (Shyann-Raj) 1 tab DAILY PO Last adminis tered on 08/04/18at 09:15; Admin Dose 1 TAB; Start 07/14/18 at 09:00 Tramadol HCl (Ultram) 50 mg TID PRN PO PAIN LEVEL 6-10 Last administered on 07/24/18at 03:35; Admin Dose 50 MG; Start 07/13/18 at 23:30 Acetaminophen (Tylenol Tab) 650 mg Q6H PRN PO MILD PAIN(1-3)OR ELEVATED TEMP; Start 07/13/18 at 23:30 Hydralazine HCl (Apresoline) 20 mg Q6H PRN IV sbp over 170 Last administered on 07/14/18at 11:56; Admin Dose 20 MG; Start 07/13/18 at 23:30 Miscellaneous Information 1 ea NOTE XX ; Start 07/13/18 at 23:30 Glucose (Glutose) 15 gm Q15M PRN PO DECREASED GLUCOSE; Start 07/13/18 at 23:30 Glucose (Glutose) 22.5 gm Q15M PRN PO DECREASED GLUCOSE; Start 07/13/18 at 23:30 Dextrose (D50w Syringe) 25 ml Q15M PRN IV DECREASED GLUCOSE Last administered on 07/24/18at 08:19; Admin Dose 25 ML; Start 07/13/18 at 23:30 Dextrose (D50w Syringe) 50 ml Q15M PRN IV DECREASED GLUCOSE; Start 07/13/18 at 23:30 Glucagon (Glucagen) 1 mg Q15M PRN IM DECREASED GLUCOSE; Start 07/13/18 at 23:30 Glucose (Glutose) 15 gm Q15M PRN BUCCAL DECREASED GLUCOSE; Start 07/13/18 at 23:30 Ondansetron HCl (Zofran Inj) 4 mg Q4H PRN IV NAUSEA AND/OR VOMITING Last administered on 07/23/18at 16:30; Admin Dose 4 MG; Start 07/14/18 at 00:30 Miscellaneous Information [facility] This patient easley... PRN PRN XX WOUND CARE; Start 07/14/18 at 04:30 Heparin Sodium (Porcine) (Heparin (1000 Units/ml)) 4,000 unit AFTER DIALYSIS CATHETER Last administered on 07/27/18at 20:16; Admin Dose 4,000 UNIT; Start 07/17/18 at 12:30 Diagnostic Test (Pha) (Accu-Chek) 1 ea 02 XX Last administered on 08/02/18at 00:42; Admin Dose 1 EA; Start 07/19/18 at 02:00 IV Flush (NS 3 ml) 3 ml PER PROTOCOL IV ; Start 07/20/18 at 11:30 Calcium/Vitamin D (Oyster Shell/ Vit-D (500/200)) 1 tab BID PO Last administered on 08/04/18at 09:15; Admin Dose 1 TAB; Start 07/20/18 at 21:00 Metoprolol Tartrate (Lopressor) 5 mg Q4H PRN IV HR > 110; Hold if SBP < 100 Last administered on 07/21/18 01:52; Admin Dose 5 MG; Start 07/21/18 at 02:00 Metoclopramide HCl (Reglan) 10 mg Q6H PRN IV NAUSEA AND/OR VOMITING Last administered on 07/26/18 22:31; Admin Dose 10 MG; Start 07/23/18 at 20:30 Norepinephrine 250 ml @ 1.875 mls/ hr TITRATE IV Last administered on 07/29/18 01:20; Admin Dose 3.75 MLS/HR; Start 07/24/18 at 11:00 Collagenase (Santyl) 1 applic DAILY TOP Last administered on 08/04/18 09:14; Admin Dose 1 APPLIC; Start 07/25/18 at 09:00 Phenylephrine HCl 80 mg/Dextrose 250 ml @ 18.75 mls/ hr TITRATE IV Last administered on 08/04/18 04:26; Admin Dose 22.5 MLS/HR; Start 07/24/18 at 20:30 Insulin Aspart (Novolog Insulin Pen) NOVOLOG *MILD* ALGORI... Q4 SC Last administered on 08/04/18 09:18; Admin Dose 1 UNIT; Start 07/24/18 at 21:00 Propofol 100 ml @ 1.851 mls/ hr Q12H IV Last administered on 07/28/18 20:30; Admin Dose 5.553 MLS/HR; Start 07/25/18 at 13:00 Fentanyl 100 ml @ 2.5 mls/hr TITRATE IV Last administered on 08/04/18 06:36; Admin Dose 5 MLS/HR; Start 07/26/18 at 11:00 Vancomycin HCl (Vanco Iv Per Pharmacy) VANCOMYCIN PER PHARMACY PER PROTOCOL XX ; Start 07/28/18 at 10:30 Cefepime HCl 50 ml @ 100 mls/hr Q24H IVPB Last administered on 08/03/18 13:24; Admin Dose 100 MLS/HR; Start 07/30/18 at 12:00 Lansoprazole (Prevacid) 30 mg BID@0600,1800 PO Last administered on 08/04/18 05:46; Admin Dose 30 MG; Start 07/30/18 at 18:00 Aspirin (Aspirin) 81 mg DAILY PO Last administered on 08/04/18 09:15; Admin Dose 81 MG; Start 07/30/18 at 11:30 Atorvastatin Calcium (Lipitor) 20 mg HS PO Last administered on 08/03/18 21:20; Admin Dose 20 MG; Start 07/30/18 at 21:00 Midodrine (Proamatine) 10 mg TID@09,13,17 PO Last administered on 08/04/18 09:15; Admin Dose 10 MG; Start 07/30/18 at 13:00 Insulin Glargine (Lantus) 15 units DAILY@0800 SC Last administered on 08/04/18 09:17; Admin Dose 15 UNITS; Start 07/31/18 at 09:00 Midazolam HCl 50 ml @ 1 mls/hr TITRATE IV Last administered on 08/03/18 14:52; Admin Dose 1 MLS/HR; Start 08/02/18 at 10:00 Hydrocortisone (Solu-Cortef) 10 mg DAILY IV Last administered on 08/04/18 09:14; Admin Dose 10 MG; Start 08/03/18 at 09:00 Epoetin Derick (Epogen (Esrd)) 3,000 units TuThSa@17 SC Last administered on 08/03/18 17:05; Admin Dose 3,000 UNITS; Start 08/03/18 at 17:00 Levothyroxine Sodium (Synthroid) 100 mcg DAILY@06 PO Last administered on 08/04/18 05:46; Admin Dose 100 MCG; Start 08/03/18 at 06:00 Assessment/Plan Hospital Course (Demo Recall) IMPRESSION 1. Cardiopulmonary arrest. Prolonged CPR with ACLS protocol. Significant encephalopathy 2. Multiple cardiopulmonary arrests and prolonged hypotension, despite this patient seems to be somewhat neurologically intact. 3. End-stage renal failure on hemodialysis. 4. Possible aspiration pneumonia. Septic shock. Requiring vasopressor support, increasing pressor requirements 5. History of severe peripheral vascular disease. 6. Possible acute GI bleed given acute drop in hemoglobin prior to cardiac arrest 7. refractory septic shock Plan 1. Vasopressor support as needed. Increased stress dose steroids 2. Mechanical ventilation 3. Broad-spectrum antibiotic coverage for possible aspiration. 4. GI recommendations 5. DVT and GI prophylaxis. Critical care time 40 minutes. DEVAN MIDDLETON MD, [facility] Aug 04, 2018 10:40
--- NOTE | 2018-08-04 10:52 | CONS ---
Assessment/Plan Assessment/Plan Hospital Course (Demo Recall) IMP: 1. Preoperative for LE ORIF-NL EF by echo with mod-sev TR. Lexiscan with NL EF and partially reversible inferior wall defect. Thus patient has no cardiac contraindication to proceeding to OR on current medications but at moderate to high risk. Now post-op s/p ORIF 2.Positive troponin 3.BRadycardia to 40's/stable BP. S Misael- now improved with decrease in dose of clonidine and having short runs of tachycardia/SVT. ? Now in AF s/p code yesterday 4.HTN-uncontrolled at this time 5.ankle fracture 6.ESRD on HD 7. TR-mod-sev 8. ? sick euthyroid-elevated TSH and Free t4 9. Patient with PEA and VFA this am requiring ACLS and intubation protocol on onset during HD 10. anemia-acute drop. ? where bleeding,internal given abd pain. Now s/p transfusion PRBC's/possible melena overnight 11.PAF- in AF at this time. Reasonable rates on amiodarone 12. Nstemi- downtrending cardiac enzymes significantly 14. hypotension-on jake- s/p repeat echo 07/29 with EF slightly lower but still wnl 50% 15. UTI Recc -ICU -Continue Jake with weaning as possible -continue vent support -Continue ASA as tolerated. Not on systemic anticoagulation secondary to anemia/GIB -transfuse PRBC's as necessary -HD as tolerated only, ongoing now -trend cardiac enzymes -Contineu abx's and f/u cx data -ongoing family discussion about direction of care with patient now currently full code Consultation Date/Type/Reason Admit Date/Time Jul 13, 2018 at 21:32 Initial Consult Date 07/16/18 Type of Consult Cardiology Reason for Consultation hypotension Requesting Provider: ADAM DUARTE MD Date/Time of Note DATE: 08/04/18 TIME: 10:48 Exam/Review of Systems Vital Signs Vitals Vital Signs Date Temp Pulse Resp B/P (MAP) Pulse Ox O2 O2 Flow FiO2 Time Delivery Rate 08/04/18 89 08:00 08/04/18 20 103/39 92 07:30 (60) 08/04/18 Mechanical 07:00 Ventilator 08/04/18 30 05:30 08/04/18 97.9 04:00 Intake and Output 2/08/03/18 08/04/18 1515:00 23:00 07:00 IntakeIntake Total 721.53 ml 563.01 ml 589.0 ml OutputOutput Total 2000 ml 0 ml 0 ml BalanceBalance -1278.47 ml 563.01 ml 589.0 ml Exam Exam Review of Systems: CONSTITUTIONAL: No fevers, chills. PULMONARY: No sob CARDIOVASCULAR: No chest pain/palpitations GASTROINTESTINAL: No nausea/vomiting. GENITOURINARY: No hematuria/dysuria. MUSCULOSKELETAL: No myagias/arthalgias. PSYCHIATRIC: The patient denies depression. NEUROLOGIC: No weakness Constitutional: other (sleeping) Psych: no complaints Head: normocephalic ENMT: intubated Neck: supple, jvd (9 cm water) Respiratory: clear to auscultation Cardiovascular: regular rate and rhythm Gastrointestinal: soft, non-tender Musculoskeletal: muscle tone (normal) Extremities: edema (none) Neurological: unresponsive Labs Result Diagram: 08/04/18 0430 08/04/18 0430 Results 24hrs Laboratory Tests Test 08/03/18 13:23 08/03/18 17:08 08/03/18 21:23 08/04/18 01:46 Bedside Glucose 150 124 83 108 Test 08/04/18 04:30 08/04/18 05:49 08/04/18 07:00 08/04/18 09:16 White Blood Count 14.1 H Red Blood Count 2.63 L Hemoglobin 8.6 L Hematocrit 25.7 L Mean Corpuscular 97.7 Volume Mean Corpuscular 32.7 Hemoglobin Mean Corpuscular 33.5 Hemoglobin Concen t Red Cell 22.5 H Distribution Width Platelet Count 130 L Mean Platelet 13.0 H Volume Immature 1.300 H Granulocytes % Neutrophils % 88.3 H Lymphocytes % 5.5 L Monocytes % 3.8 Eosinophils % 0.9 Basophils % 0.2 Nucleated Red 0.9 H Blood Cells % Immature 0.190 H Granulocytes # Neutrophils # 12.5 H Lymphocytes # 0.8 Monocytes # 0.5 Eosinophils # 0.1 Basophils # 0.0 Nucleated Red 0.1 H Blood Cells # Sodium Level 131 L Potassium Level 3.6 Chloride Level 97 Carbon Dioxide 26 Level Anion Gap 8 Blood Urea 23 H Nitrogen Creatinine 1.57 H Est Glomerular Filtrat Rate mL/min Glucose Level 118 # Calcium Level 7.7 L Random Vancomycin 13.5 Level Bedside Glucose 124 175 Blood Gas Blood arterial Specimen Source Arterial Blood 08/04/2018 7:47:1 Date Drawn 3 AM Arterial Blood pH 7.477 H (Temp corrected) Arterial Blood 34.9 L pCO2 (Temp correct) Arterial Blood 47.7 *L pO2 (Temp corrected) Arterial Blood 25.2 HCO3 Arterial Blood 1.8 Base Excess Arterial Blood 85.6 L Oxygen Saturation Low Test ACCEPTAB Arterial Blood Right Radial Gas Puncture Site Arterial 0.9 Blood Carboxyhemo globin Arterial Blood 0.3 Methemoglobin Blood Gas A-a O2 125.2 H Differential Oxyhemoglobin 84.6 L Percent Blood Gas 37.0 Temperature Blood Gas 10.0 Respiration Rate Blood Gas Actual 18 Respiration Rate Blood Gas VENT - AC Modality FiO2 30.0 Blood Gas Tidal 400.0 Volume Blood Gas Low 5.0 PEEP Setting Blood Gas K MORELIA HOOD Critical Value Read Back Blood Gas DT Notified Whom Blood Gas 08/04/2018 8:07:4 Notified Time 6 AM Medications Medications Current Medications Multivit/Ca Carb/ B Cmplx/FA/Prenat (Shyann-Raj) 1 tab DAILY PO Last administered on 08/04/18at 09:15; Admin Dose 1 TAB; Start 07/14/18 at 09:00 Tramadol HCl (Ultram) 50 mg TID PRN PO PAIN LEVEL 6-10 Last administered on at 03:35; Admin Dose 50 MG; Start 07/13/18 at 23:30 Acetaminophen (Tylenol Tab) 650 mg Q6H PRN PO MILD PAIN(1-3)OR ELEVATED TEMP; Start 07/13/18 at 23:30 Hydralazine HCl (Apresoline) 20 mg Q6H PRN IV sbp over 170 Last administered on 07/14/18at 11:56; Admin Dose 20 MG; Start 07/13/18 at 23:30 Miscellaneous Information 1 ea NOTE XX ; Start 07/13/18 at 23:30 Glucose (Glutose) 15 gm Q15M PRN PO DECREASED GLUCOSE; Start 07/13/18 at 23:30 Glucose (Glutose) 22.5 gm Q15M PRN PO DECREASED GLUCOSE; Start 07/13/18 at 23:30 Dextrose (D50w Syringe) 25 ml Q15M PRN IV DECREASED GLUCOSE Last administered o n 07/24/18 08:19; Admin Dose 25 ML; Start 07/13/18 at 23:30 Dextrose (D50w Syringe) 50 ml Q15M PRN IV DECREASED GLUCOSE; Start 07/13/18 at 23:30 Glucagon (Glucagen) 1 mg Q15M PRN IM DECREASED GLUCOSE; Start 07/13/18 at 23:30 Glucose (Glutose) 15 gm Q15M PRN BUCCAL DECREASED GLUCOSE; Start 07/13/18 at 23:30 Ondansetron HCl (Zofran Inj) 4 mg Q4H PRN IV NAUSEA AND/OR VOMITING Last administered on 07/23/18 16:30; Admin Dose 4 MG; Start 07/14/18 at 00:30 Miscellaneous Information (Pending [facility] Order For Wound Care) This patient easley... PRN PRN XX WOUND CARE; Start 07/14/18 at 04:30 Heparin Sodium (Porcine) (Heparin (1000 Units/ml)) 4,000 unit AFTER DIALYSIS CATHETER Last administered on 07/27/18 20:16; Admin Dose 4,000 UNIT; Start 07/17/18 at 12:30 Diagnostic Test (Pha) (Accu-Chek) 1 ea 02 XX Last administered on 08/02/18 00:42; Admin Dose 1 EA; Start 07/19/18 at 02:00 IV Flush (NS 3 ml) 3 ml PER PROTOCOL IV ; Start 07/20/18 at 11:30 Calcium/Vitamin D (Oyster Shell/ Vit-D (500/200)) 1 tab BID PO Last administered on 08/04/18 09:15; Admin Dose 1 TAB; Start 07/20/18 at 21:00 Metoprolol Tartrate (Lopressor) 5 mg Q4H PRN IV HR > 110; Hold if SBP < 100 Last administered on 07/21/18 01:52; Admin Dose 5 MG; Start 07/21/18 at 02:00 Metoclopramide HCl (Reglan) 10 mg Q6H PRN IV NAUSEA AND/OR VOMITING Last administered on 07/26/18 22:31; Admin Dose 10 MG; Start 07/23/18 at 20:30 Norepinephrine 250 ml @ 1.875 mls/ hr TITRATE IV Last administered on 07/29/18 01:20; Admin Dose 3.75 MLS/HR; Start 07/24/18 at 11:00 Collagenase (Santyl) 1 applic DAILY TOP Last administered on 08/04/18 09:14; Admin Dose 1 APPLIC; Start 07/25/18 at 09:00 Phenylephrine HCl 80 mg/Dextrose 250 ml @ 18.75 mls/ hr TITRATE IV Last administered on 08/04/18 04:26; Admin Dose 22.5 MLS/HR; Start 07/24/18 at 20:30 Insulin Aspart (Novolog Insulin Pen) NOVOLOG *MILD* ALGORI... Q4 SC Last administered on 08/04/18 09:18; Admin Dose 1 UNIT; Start 07/24/18 at 21:00 Propofol 100 ml @ 1.851 mls/ hr Q12H IV Last administered on 07/28/18 20:30; Admin Dose 5.553 MLS/HR; Start 07/25/18 at 13:00 Fentanyl 100 ml @ 2.5 mls/hr TITRATE IV Last administered on 08/04/18 06:36; Admin Dose 5 MLS/HR; Start 07/26/18 at 11:00 Vancomycin HCl (Vanco Iv Per Pharmacy) VANCOMYCIN PER PHARMACY PER PROTOCOL XX ; Start 07/28/18 at 10:30 Cefepime HCl 50 ml @ 100 mls/hr Q24H IVPB Last administered on 08/03/18 13:24; Admin Dose 100 MLS/HR; Start 07/30/18 at 12:00 Lansoprazole (Prevacid) 30 mg BID@0600,1800 PO Last administered on 08/04/18 05:46; Admin Dose 30 MG; Start 07/30/18 at 18:00 Aspirin (Aspirin) 81 mg DAILY PO Last administered on 08/04/18 09:15; Admin Dose 81 MG; Start 07/30/18 at 11:30 Atorvastatin Calcium (Lipitor) 20 mg HS PO Last administered on 08/03/18 21:20; Admin Dose 20 MG; Start 07/30/18 at 21:00 Midodrine (Proamatine) 10 mg TID@09,13,17 PO Last administered on 08/04/18 09:15; Admin Dose 10 MG; Start 07/30/18 at 13:00 Insulin Glargine (Lantus) 15 units DAILY@0800 SC Last administered on 08/04/18at 09:17; Admin Dose 15 UNITS; Start 07/31/18 at 09:00 Midazolam HCl 50 ml @ 1 mls/hr TITRATE IV Last administered on 08/03/18at 14:52; Admin Dose 1 MLS/HR; Start 08/02/18 at 10:00 Epoetin Derick (Epogen (Esrd)) 3,000 units TuThSa@17 SC Last administered on 08/03/18at 17:05; Admin Dose 3,000 UNITS; Start 08/03/18 at 17:00 Levothyroxine Sodium (Synthroid) 100 mcg DAILY@06 PO Last administered on 08/04/18at 05:46; Admin Dose 100 MCG; Start 08/03/18 at 06:00 Hydrocortisone (Solu-Cortef) 100 mg TID IV ; Start 08/04/18 at 13:00 JUSTICE HARRISON Aug 04, 2018 10:52
[2018-08-04] MEDS: VANCOMYCIN 1 GM 250 ML IVPB SCH (12:21)
[2018-08-04] MEDS: CEFEPIME 1GM/50 ML IVPB SCH (12:21)
--- NOTE | 2018-08-04 14:33 | CONS ---
Assessment/Plan Assessment/Plan Assessment/Plan (Daily) 1. Anemia, rule out gastrointestinal bleeding. -concern for GI bleed due to drop in H/H prior to cardiac arrest. -per RN bm was brown with potentially old melena, no active bleeding 2. Status post pulseless electrical activity period and cardiac arrest. 3. Ventilator-dependent respiratory failure. 4. End-stage renal disease, on dialysis. 5. 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 6. Left stump bruises. 7. Ankle fracture. 8. Cirrhosis of liver 9. Gastroparesis 10 bilateral cerebellar infarct 11 septic shock patient is on pressor support Plan Family spoke with Dr. Duarte, chemical code only. Monitor HH and replace as necessary. Continue present care Continue tube feeds as tolerated Aspiration precautions Patient is unstable for any endoscopy procedures and there is no active GI bleeding at this point Continue on lactulose and Reglan and PPI BID. Patient is tolerating feeding no gastric residual Patient is a full code. she may need tracheostomy and G-tube Consultation Date/Type/Reason Admit Date/Time Jul 13, 2018 at 21:32 Initial Consult Date Requesting Provider: ADAM DUARTE MD Date/Time of Note DATE: 08/04/18 TIME: 14:32 24 HR Interval Summary Subjective hx not possible: pt non-verbal, pt critical status Exam/Review of Systems Exam Vitals Vital Signs Date Temp Pulse Resp B/P (MAP) Pulse Ox O2 O2 Flow FiO2 Time Delivery Rate 08/04/18 78 16 99/35 (56) 97 12:45 08/04/18 97.8 Mechanical 12:00 Ventilator 08/04/18 55 11:30 Intake and Output 08/03/18 08/03/18 08/04/18 1515:00 23:00 07:00 IntakeIntake Total 721.53 ml 563.01 ml 624.0 ml OutputOutput Total 2000 ml 0 ml 0 ml BalanceBalance -1278.47 ml 563.01 ml 624.0 ml ENMT: nl external ears & nose Extremities: normal pulses Results Result Diagram: 08/04/18 04308/04/18 043 Results 24hrs Laboratory Tests Test 08/03/18 17:08 08/03/18 21:23 08/04/18 01:46 08/04/18 04:30 Bedside Glucose 124 83 108 White Blood Count 14.1 H Red Blood Count 2.63 L Hemoglobin 8.6 L Hematocrit 25.7 L Mean Corpuscular 97.7 Volume Mean Corpuscular 32.7 Hemoglobin Mean Corpuscular 33.5 Hemoglobin Concen t Red Cell 22.5 H Distribution Width Platelet Count 130 L Mean Platelet 13.0 H Volume Immature 1.300 H Granulocytes % Neutrophils % 88.3 H Lymphocytes % 5.5 L Monocytes % 3.8 Eosinophils % 0.9 Basophils % 0.2 Nucleated Red 0.9 H Blood Cells % Immature 0.190 H Granulocytes # Neutrophils # 12.5 H Lymphocytes # 0.8 Monocytes # 0.5 Eosinophils # 0.1 Basophils # 0.0 Nucleated Red 0.1 H Blood Cells # Sodium Level 131 L Potassium Level 3.6 Chloride Level 97 Carbon Dioxide 26 Level Anion Gap 8 Blood Urea 23 H Nitrogen Creatinine 1.57 H Est Glomerular Filtrat Rate mL/min Glucose Level 118 # Calcium Level 7.7 L Random Vancomycin 13.5 Level Test 08/04/18 05:49 08/04/18 07:00 08/04/18 09:16 08/04/18 12:23 Bedside Glucose 124 175 156 Blood Gas Blood arterial Specimen Source Arterial Blood 08/04/2018 7:47:1 Date Drawn 3 AM Arterial Blood pH 7.477 H (Temp corrected) Arterial Blood 34.9 L pCO2 (Temp correct) Arterial Blood 47.7 *L pO2 (Temp corrected) Arterial Blood 25.2 HCO3 Arterial Blood 1.8 Base Excess Arterial Blood 85.6 L Oxygen Saturation Low Test ACCEPTAB Arterial Blood Right Radial Gas Puncture Site Arterial 0.9 Blood Carboxyhemo globin Arterial Blood 0.3 Methemoglobin Blood Gas A-a O2 125.2 H Differential Oxyhemoglobin 84.6 L Percent Blood Gas 37.0 Temperature Blood Gas 10.0 Respiration Rate Blood Gas Actual 18 Respiration Rate Blood Gas VENT - AC Modality FiO2 30.0 Blood Gas Tidal 400.0 Volume Blood Gas Low 5.0 PEEP Setting Blood Gas Danii THIBODEAUX RN Critical Value Read Back Blood Gas DT Notified Whom Blood Gas 08/04/2018 8:07:4 Notified Time 6 AM Medications Medication Current Medications Multivit/Ca Carb/ B Cmplx/FA/Prenat (Shyann-Raj) 1 tab DAILY PO Last administered on 08/04/18at 09:15; Admin Dose 1 TAB; Start 07/14/18 at 09:00 Tramadol HCl (Ultram) 50 mg TID PRN PO PAIN LEVEL 6-10 Last administered on 07/24/18at 03:35; Admin Dose 50 MG; Start 07/13/18 at 23:30 Acetaminophen (Tylenol Tab) 650 mg Q6H PRN PO MILD PAIN(1-3)OR ELEVATED TEMP; Start 07/13/18 at 23:30 Hydralazine HCl (Apresoline) 20 mg Q6H PRN IV sbp over 170 Last administered on 07/14/18at 11:56; Admin Dose 20 MG; Start 07/13/18 at 23:30 Miscellaneous Information 1 ea NOTE XX ; Start 07/13/18 at 23:30 Glucose (Glutose) 15 gm Q15M PRN PO DECREASED GLUCOSE; Start 07/13/18 at 23:30 Glucose (Glutose) 22.5 gm Q15M PRN PO DECREASED GLUCOSE; Start 07/13/18 at 23:30 Dextrose (D50w Syringe) 25 ml Q15M PRN IV DECREASED GLUCOSE Last administered on 07/24/18at 08:19; Admin Dose 25 ML; Start 07/13/18 at 23:30 Dextrose (D50w Syringe) 50 ml Q15M PRN IV DECREASED GLUCOSE; Start 07/13/18 at 23:30 Glucagon (Glucagen) 1 mg Q15M PRN IM DECREASED GLUCOSE; Start 07/13/18 at 23:30 Glucose (Glutose) 15 gm Q15M PRN BUCCAL DECREASED GLUCOSE; Start 07/13/18 at 23:30 Ondansetron HCl (Zofran Inj) 4 mg Q4H PRN IV NAUSEA AND/OR VOMITING Last administered on 07/23/18at 16:30; Admin Dose 4 MG; Start 07/14/18 at 00:30 Miscellaneous Information (Pending Santyl Order For Wound Care) This patient easley... PRN PRN XX WOUND CARE; Start 07/14/18 at 04:30 Heparin Sodium (Porcine) (Heparin (1000 Units/ml)) 4,000 unit AFTER DIALYSIS CATHETER Last administered on 07/27/18at 20:16; Admin Dose 4,000 UNIT; Start 07/17/18 at 12:30 Diagnostic Test (Pha) (Accu-Chek) 1 ea 02 XX Last administered on 08/02/18 00:42; Admin Dose 1 EA; Start 07/19/18 at 02:00 IV Flush (NS 3 ml) 3 ml PER PROTOCOL IV ; Start 07/20/18 at 11:30 Calcium/Vitamin D (Oyster Shell/ Vit-D (500/200)) 1 tab BID PO Last adm inistered on 08/04/18 09:15; Admin Dose 1 TAB; Start 07/20/18 at 21:00 Metoprolol Tartrate (Lopressor) 5 mg Q4H PRN IV HR > 110; Hold if SBP < 100 Last administered on 07/21/18 01:52; Admin Dose 5 MG; Start 07/21/18 at 02:00 Metoclopramide HCl (Reglan) 10 mg Q6H PRN IV NAUSEA AND/OR VOMITING Last administered on 07/26/18 22:31; Admin Dose 10 MG; Start 07/23/18 at 20:30 Norepinephrine 250 ml @ 1.875 mls/ hr TITRATE IV Last administered on 07/29/18 01:20; Admin Dose 3.75 MLS/HR; Start 07/24/18 at 11:00 Collagenase (Santyl) 1 applic DAILY TOP Last administered on 08/04/18 09:14; Admin Dose 1 APPLIC; Start 07/25/18 at 09:00 Phenylephrine HCl 80 mg/Dextrose 250 ml @ 18.75 mls/ hr TITRATE IV Last administered on 08/04/18 04:26; Admin Dose 22.5 MLS/HR; Start 07/24/18 at 20:30 Insulin Aspart (Novolog Insulin Pen) NOVOLOG *MILD* ALGORI... Q4 SC Last administered on 08/04/18 12:34; Admin Dose 1 UNIT; Start 07/24/18 at 21:00 Propofol 100 ml @ 1.851 mls/ hr Q12H IV Last administered on 07/28/18 20:30; Admin Dose 5.553 MLS/HR; Start 07/25/18 at 13:00 Fentanyl 100 ml @ 2.5 mls/hr TITRATE IV Last administered on 08/04/18 06:36; Admin Dose 5 MLS/HR; Start 07/26/18 at 11:00 Vancomycin HCl (Vanco Iv Per Pharmacy) VANCOMYCIN PER PHARMACY PER PROTOCOL XX ; Start 07/28/18 at 10:30 Cefepime HCl 50 ml @ 100 mls/hr Q24H IVPB Last administered on 08/04/18 12:21; Admin Dose 100 MLS/HR; Start 07/30/18 at 12:00 Lansoprazole (Prevacid) 30 mg BID@0600,1800 PO Last administered on 08/04/18 05:46; Admin Dose 30 MG; Start 07/30/18 at 18:00 Aspirin (Aspirin) 81 mg DAILY PO Last administered on 08/04/18 09:15; Admin Dose 81 MG; Start 07/30/18 at 11:30 Atorvastatin Calcium (Lipitor) 20 mg HS PO Last administered on 08/03/18 21:20; Admin Dose 20 MG; Start 07/30/18 at 21:00 Midodrine (Proamatine) 10 mg TID@09,13,17 PO Last administered on 08/04/18 12:22; Admin Dose 10 MG; Start 07/30/18 at 13:00 Insulin Glargine (Lantus) 15 units DAILY@0800 SC Last administered on 08/04/18 09:17; Admin Dose 15 UNITS; Start 07/31/18 at 09:00 Midazolam HCl 50 ml @ 1 mls/hr TITRATE IV Last administered on 08/03/18 14:52; Admin Dose 1 MLS/HR; Start 08/02/18 at 10:00 Epoetin Derick (Epogen (Esrd)) 3,000 units TuThSa@17 SC Last administered on 08/03/18 17:05; Admin Dose 3,000 UNITS; Start 08/03/18 at 17:00 Levothyroxine Sodium (Synthroid) 100 mcg DAILY@06 PO Last administered on 07/13 05:46; Admin Dose 100 MCG; Start 08/03/18 at 06:00 Hydrocortisone (Solu-Cortef) 100 mg TID IV Last administered on 08/04/18 12:21; Admin Dose 100 MG; Start 08/04/18 at 13:00 Vancomycin HCl 250 ml @ 125 mls/hr Q96H IVPB Last administered on 08/04/18 12:21; Admin Dose 125 MLS/HR; Start 08/04/18 at 12:00 GLORIA TURNER MD Aug 04, 2018 14:32
--- NOTE | 2018-08-04 17:00 | PN ---
Date/Time of Note Date/Time of Note DATE: 08/04/18 TIME: 16:57 Assessment/Plan VTE Prophylaxis Risk score (from [facility])>0 risk: 32 SCD applied (from [facility]): No SCD contraindicated: other Pharmacological prophylaxis: other Lines/Catheters IV Catheter Type (from [facility]): Central Line Central line still needed: Yes Urinary Cath still in place: Yes Reason Cath still needed: other (indicate) Assessment/Plan Hospital Course # Cardiac pulmonary arrest s/p vfib # Respiratory failure s/p intubation # Hypotension on pressor # anemia # Acute comminuted fractures of the distal tibia and fibula that involve the distal tibiofibular joint. Distal tibia fracture extends to within 0.3 cm of the tibial plafond but does not involve the articular surface. The appearance is in keeping with an extra-articular Pilon fracture. #. Hyponatremia. #. Metabolic acidosis. # Cardiomegaly and pulmonary edema. #. Aortic atherosclerosis. #. History of congestive heart failure. # History of diabetic retinopathy, nephropathy. #. Hypoalbuminemia. # The patient has right lower extremity brace.with fracture #. Left stump bruise better # Congestive heart failure by x-ray, question systolic versus diastolic, likely acute on chronic given presentation. # elevated troponin in the setting of end-stage kidney disease # elevated troponin in the setting of cardiac arrest downtrending # Leukocytosis plan continue same hd peg and trac soon Result Diagram: 08/04/18 0430 08/04/18 0430 Results 24hrs Laboratory Tests Test 08/03/18 17:08 08/03/18 21:23 08/04/18 01:46 08/04/18 04:30 Bedside Glucose 124 83 108 White Blood Count 14.1 H Red Blood Count 2.63 L Hemoglobin 8.6 L Hematocrit 25.7 L Mean Corpuscular 97.7 Volume Mean Corpuscular 32.7 Hemoglobin Mean Corpuscular 33.5 Hemoglobin Concen t Red Cell 22.5 H Distribution Width Platelet Count 130 L Mean Platelet 13.0 H Volume Immature 1.300 H Granulocytes % Neutrophils % 88.3 H Lymphocytes % 5.5 L Monocytes % 3.8 Eosinophils % 0.9 Basophils % 0.2 Nucleated Red 0.9 H Blood Cells % Immature 0.190 H Granulocytes # Neutrophils # 12.5 H Lymphocytes # 0.8 Monocytes # 0.5 Eosinophils # 0.1 Basophils # 0.0 Nucleated Red 0.1 H Blood Cells # Sodium Level 131 L Potassium Level 3.6 Chloride Level 97 Carbon Dioxide 26 Level Anion Gap 8 Blood Urea 23 H Nitrogen Creatinine 1.57 H Est Glomerular Filtrat Rate mL/min Glucose Level 118 # Calcium Level 7.7 L Random Vancomycin 13.5 Level Test 08/04/18 05:49 08/04/18 07:00 08/04/18 09:16 08/04/18 12:23 Bedside Glucose 124 175 156 Blood Gas Blood arterial Specimen Source Arterial Blood 08/04/2018 7:47:1 Date Drawn 3 AM Arterial Blood pH 7.477 H (Temp corrected) Arterial Blood 34.9 L pCO2 (Temp correct) Arterial Blood 47.7 *L pO2 (Temp corrected) Arterial Blood 25.2 HCO3 Arterial Blood 1.8 Base Excess Arterial Blood 85.6 L Oxygen Saturation Low Test ACCEPTAB Arterial Blood Right Radial Gas Puncture Site Arterial 0.9 Blood Carboxyhemo globin Arterial Blood 0.3 Methemoglobin Blood Gas A-a O2 125.2 H Differential Oxyhemoglobin 84.6 L Percent Blood Gas 37.0 Temperature Blood Gas 10.0 Respiration Rate Blood Gas Actual 18 Respiration Rate Blood Gas VENT - AC Modality FiO2 30.0 Blood Gas Tidal 400.0 Volume Blood Gas Low 5.0 PEEP Setting Blood Gas K MORELIA RN Critical Value Read Back Blood Gas DT Notified Whom Blood Gas 08/04/2018 8:07:4 Notified Time 6 AM Subjective 24 Hr Interval Summary Subjective hx not possible: other (on vent) Exam/Review of Systems Exam Vitals Vital Signs Date Temp Pulse Resp B/P (MAP) Pulse Ox O2 O2 Flow FiO2 Time Delivery Rate 08/04/18 98.9 75 21 118/32 98 Mechanical 16:00 (60) Ventilator 08/04/18 55 15:30 Intake and Output 08/03/18 08/03/18 08/04/18 1515:00 23:00 07:00 IntakeIntake Total 721.53 ml 563.01 ml 624.0 ml OutputOutput Total 2000 ml 0 ml 0 ml BalanceBalance -1278.47 ml 563.01 ml 624.0 ml Respiratory: diminished breath sounds Cardiovascular: regular rate and rhythm Gastrointestinal: soft, bowel sounds (+) Extremities: edema (++) Results Results 24hrs Laboratory Tests Test 08/03/18 17:08 08/03/18 21:23 08/04/18 01:46 08/04/18 04:30 Bedside Glucose 124 83 108 White Blood Count 14.1 H Red Blood Count 2.63 L Hemoglobin 8.6 L Hematocrit 25.7 L Mean Corpuscular 97.7 Volume Mean Corpuscular 32.7 Hemoglobin Mean Corpuscular 33.5 Hemoglobin Concen t Red Cell 22.5 H Distribution Width Platelet Count 130 L Mean Platelet 13.0 H Volume Immature 1.300 H Granulocytes % Neutrophils % 88.3 H Lymphocytes % 5.5 L Monocytes % 3.8 Eosinophils % 0.9 Basophils % 0.2 Nucleated Red 0.9 H Blood Cells % Immature 0.190 H Granulocytes # Neutrophils # 12.5 H Lymphocytes # 0.8 Monocytes # 0.5 Eosinophils # 0.1 Basophils # 0.0 Nucleated Red 0.1 H Blood Cells # Sodium Level 131 L Potassium Level 3.6 Chloride Level 97 Carbon Dioxide 26 Level Anion Gap 8 Blood Urea 23 H Nitrogen Creatinine 1.57 H Est Glomerular Filtrat Rate mL/min Glucose Level 118 # Calcium Level 7.7 L Random Vancomycin 13.5 Level Test 08/04/18 05:49 08/04/18 07:00 08/04/18 09:16 08/04/18 12:23 Bedside Glucose 124 175 156 Blood Gas Blood arterial Specimen Source Arterial Blood 08/04/2018 7:47:1 Date Drawn 3 AM Arterial Blood pH 7.477 H (Temp corrected) Arterial Blood 34.9 L pCO2 (Temp correct) Arterial Blood 47.7 *L pO2 (Temp corrected) Arterial Blood 25.2 HCO3 Arterial Blood 1.8 Base Excess Arterial Blood 85.6 L Oxygen Saturation Low Test ACCEPTAB Arterial Blood Right Radial Gas Puncture Site Arterial 0.9 Blood Carboxyhemo globin Arterial Blood 0.3 Methemoglobin Blood Gas A-a O2 125.2 H Differential Oxyhemoglobin 84.6 L Percent Blood Gas 37.0 Temperature Blood Gas 10.0 Respiration Rate Blood Gas Actual 18 Respiration Rate Blood Gas VENT - AC Modality FiO2 30.0 Blood Gas Tidal 400.0 Volume Blood Gas Low 5.0 PEEP Setting Blood Gas Danii THIBODEAUX RN Critical Value Read Back Blood Gas DT Notified Whom Blood Gas 08/04/2018 8:07:4 Notified Time 6 AM Medications Medication Current Medications Multivit/Ca Carb/ B Cmplx/FA/Prenat (Shyann-Raj) 1 tab DAILY PO Last administ ered on 08/04/18at 09:15; Admin Dose 1 TAB; Start 07/14/18 at 09:00 Tramadol HCl (Ultram) 50 mg TID PRN PO PAIN LEVEL 6-10 Last administered on 07/24/18at 03:35; Admin Dose 50 MG; Start 07/13/18 at 23:30 Acetaminophen (Tylenol Tab) 650 mg Q6H PRN PO MILD PAIN(1-3)OR ELEVATED TEMP; Start 07/13/18 at 23:30 Hydralazine HCl (Apresoline) 20 mg Q6H PRN IV sbp over 170 Last administered on 07/14/18at 11:56; Admin Dose 20 MG; Start 07/13/18 at 23:30 Miscellaneous Information 1 ea NOTE XX ; Start 07/13/18 at 23:30 Glucose (Glutose) 15 gm Q15M PRN PO DECREASED GLUCOSE; Start 07/13/18 at 23:30 Glucose (Glutose) 22.5 gm Q15M PRN PO DECREASED GLUCOSE; Start 07/13/18 at 23:30 Dextrose (D50w Syringe) 25 ml Q15M PRN IV DECREASED GLUCOSE Last administered on 07/24/18at 08:19; Admin Dose 25 ML; Start 07/13/18 at 23:30 Dextrose (D50w Syringe) 50 ml Q15M PRN IV DECREASED GLUCOSE; Start 07/13/18 at 23:30 Glucagon (Glucagen) 1 mg Q15M PRN IM DECREASED GLUCOSE; Start 07/13/18 at 23:30 Glucose (Glutose) 15 gm Q15M PRN BUCCAL DECREASED GLUCOSE; Start 07/13/18 at 23:30 Ondansetron HCl (Zofran Inj) 4 mg Q4H PRN IV NAUSEA AND/OR VOMITING Last administered on 07/23/18at 16:30; Admin Dose 4 MG; Start 07/14/18 at 00:30 Miscellaneous Information ([facility] This patient easley... PRN PRN XX WOUND CARE; Start 07/14/18 at 04:30 Heparin Sodium (Porcine) (Heparin (1000 Units/ml)) 4,000 unit AFTER DIALYSIS CATHETER Last administered on 07/27/18 20:16; Admin Dose 4,000 UNIT; Start 07/17/18 at 12:30 Diagnostic Test (Pha) (Accu-Chek) 1 ea 02 XX Last administered on 08/02/18 00:42; Admin Dose 1 EA; Start 07/19/18 at 02:00 IV Flush (NS 3 ml) 3 ml PER PROTOCOL IV ; Start 07/20/18 at 11:30 Calcium/Vitamin D (Oyster Shell/ Vit-D (500/200)) 1 tab BID PO Last administered on 08/04/18 09:15; Admin Dose 1 TAB; Start 07/20/18 at 21:00 Metoprolol Tartrate (Lopressor) 5 mg Q4H PRN IV HR > 110; Hold if SBP < 100 Last administered on 07/21/18 01:52; Admin Dose 5 MG; Start 07/21/18 at 02:00 Metoclopramide HCl (Reglan) 10 mg Q6H PRN IV NAUSEA AND/OR VOMITING Last administered on 07/26/18 22:31; Admin Dose 10 MG; Start 07/23/18 at 20:30 Norepinephrine 250 ml @ 1.875 mls/ hr TITRATE IV Last administered on 07/29/18 01:20; Admin Dose 3.75 MLS/HR; Start 07/24/18 at 11:00 Collagenase (Santyl) 1 applic DAILY TOP Last administered on 08/04/18 09:14; Admin Dose 1 APPLIC; Start 07/25/18 at 09:00 Phenylephrine HCl 80 mg/Dextrose 250 ml @ 18.75 mls/ hr TITRATE IV Last administered on 08/04/18 15:36; Admin Dose 28.13 MLS/HR; Start 07/24/18 at 20:30 Insulin Aspart (Novolog Insulin Pen) NOVOLOG *MILD* ALGORI... Q4 SC Last administered on 08/04/18 12:34; Admin Dose 1 UNIT; Start 07/24/18 at 21:00 Propofol 100 ml @ 1.851 mls/ hr Q12H IV Last administered on 07/28/18 20:30; Admin Dose 5.553 MLS/HR; Start 07/25/18 at 13:00 Fentanyl 100 ml @ 2.5 mls/hr TITRATE IV Last administered on 08/04/18 06:36; Admin Dose 5 MLS/HR; Start 07/26/18 at 11:00 Vancomycin HCl (Vanco Iv Per Pharmacy) VANCOMYCIN PER PHARMACY PER PROTOCOL XX ; Start 07/28/18 at 10:30 Cefepime HCl 50 ml @ 100 mls/hr Q24H IVPB Last administered on 08/04/18 12:21; Admin Dose 100 MLS/HR; Start 07/30/18 at 12:00 Lansoprazole (Prevacid) 30 mg BID@0600,1800 PO Last administered on 08/04/18 05:46; Admin Dose 30 MG; Start 07/30/18 at 18:00 Aspirin (Aspirin) 81 mg DAILY PO Last administered on 08/04/18 09:15; Admin Dose 81 MG; Start 07/30/18 at 11:30 Atorvastatin Calcium (Lipitor) 20 mg HS PO Last administered on 08/03/18 21:20; Admin Dose 20 MG; Start 07/30/18 at 21:00 Midodrine (Proamatine) 10 mg TID@09,13,17 PO Last administered on 08/04/18 12:22; Admin Dose 10 MG; Start 07/30/18 at 13:00 Insulin Glargine (Lantus) 15 units DAILY@0800 SC Last administered on 08/04/18 09:17; Admin Dose 15 UNITS; Start 07/31/18 at 09:00 Midazolam HCl 50 ml @ 1 mls/hr TITRATE IV Last administered on 08/03/18 14:52; Admin Dose 1 MLS/HR; Start 08/02/18 at 10:00 Epoetin Derick (Epogen (Esrd)) 3,000 units TuThSa@17 SC Last administered on 08/03/18 17:05; Admin Dose 3,000 UNITS; Start 08/03/18 at 17:00 Levothyroxine Sodium (Synthroid) 100 mcg DAILY@06 PO Last administered on 08/04/18 05:46; Admin Dose 100 MCG; Start 08/03/18 at 06:00 Hydrocortisone (Solu-Cortef) 100 mg TID IV Last administered on 08/04/18 12: 21; Admin Dose 100 MG; Start 08/04/18 at 13:00 Vancomycin HCl 250 ml @ 125 mls/hr Q96H IVPB Last administered on 08/04/18at 12:21; Admin Dose 125 MLS/HR; Start 08/04/18 at 12:00 SAM KRUEGER MD Aug 04, 2018 17:00
[2018-08-04] MEDS: ATORVASTATIN 20 MG TAB PO SCH (21:15)
[2018-08-05] VITALS (104 sets, daily range): BP systolic 81–139; BP diastolic 24–73; PULSE 60–89; RESP 12–32
[2018-08-05] MEDS: PROPOFOL 100 ML IV SCH ×2 (01:00→12:32)
[2018-08-05] MEDS: INSULIN ASPART [NOVOLOG] 3 ML PEN SC SCH ×6 (01:20→20:45)
[2018-08-05] MEDS: ACCU-CHEK XX SCH (01:22)
[2018-08-05] MEDS: PHENYLephrine 80 MG in DEXTROSE 5% 242 ML IV SCH ×2 (01:53→12:31)
[2018-08-05] MEDS: FENTAnyl (DRIP) 1000 mcg/100mL 100 ML IV SCH (03:35)
[2018-08-05] MEDS: LANSOPRAZOLE 30 MG CAP PO SCH ×2 (05:58→16:54)
[2018-08-05] MEDS: LEVOTHYROXINE 100 MCG TAB PO SCH (05:58)
--- NOTE | 2018-08-05 08:09 | PN ---
Date/Time of Note Date/Time of Note DATE: 08/05/18 TIME: 08:06 Assessment/Plan VTE Prophylaxis Risk score (from [facility])>0 risk: 32 SCD applied (from [facility]): No SCD contraindicated: low risk/ambulating Pharmacological prophylaxis: NA/contraindicated Pharm contraindication: low risk/ambulating Lines/Catheters IV Catheter Type (from [facility]): Central Line Central line still needed: Yes Urinary Cath still in place: Yes Reason Cath still needed: urinary retention Assessment/Plan Hospital Course 78 y/o with IMPRESSION: # Cardiac pulmonary arrest s/p vfib # Respiratory failure s/p intubation # Hypotension s/p shock? cardiac vs hypovolemic/septic #LE me anemia likely to secondary to GI bleed H&H stable status post unit 2 units of blood # Hyperkalemia due to missed hemodialysis.due to fall # Acute comminuted fractures of the distal tibia and fibula that involve the d istal tibiofibular joint. Distal tibia fracture extends to within 0.3 cm of the tibial plafond but does not involve the articular surface. The appearance is in keeping with an extra-articular Pilon fracture. #. Hyponatremia. resolved #. Metabolic acidosis. # Cardiomegaly and pulmonary edema. #. Aortic atherosclerosis. #. History of congestive heart failure. # History of diabetic retinopathy, nephropathy. #. Hypoalbuminemia. # The patient has right lower extremity brace.with fracture #. Left stump bruise now noticed to have a fracture on the left hip on the x- rays # ? AFIB. # Congestive heart failure by x-ray, question systolic versus diastolic, likely acute on chronic given presentation. # elevated troponin in the setting of end-stage kidney disease # Epigastric pain r/o gastritis/ GB disease> CT scan was pending # elevated troponin in the setting of cardiac arrest downtrending # Leukocytosis # AMS ? sedation vs s/p cpr arrest with encephalopathy , now with new cerebellar infarcts Plan - MRI Of the brain pending too unstable - Seen by neurology > poor prognosis - cw Low-dose aspirin statins/statin - Hd tmw - cw lantus - try to decrease sedation and assess mental status again - f/u midodrine /hydrocortisone - cw vancomycin/cefepime -Feeding as tolerated - Hb stable , no evidence of bleeding -Dr. [place] was also called for fracture of the left hip> intervention currently as patient is unstable -Hold anticoagulation due to bleeding - fu cardiac/pul recs Pt will need trach and peg per discussion with family > pt is full code again Family meeting tmw Overall porr prognosis> will talk to family again today Is chemical code now however overall prognosis is guarded will wait for neurology recommendations Result Diagram: 08/05/18 0512 08/05/18 0512 Results 24hrs Laboratory Tests Test 08/04/18 09:16 08/04/18 12:23 08/04/18 17:02 08/04/18 21:27 Bedside Glucose 175 156 192 206 Test 08/05/18 01:16 08/05/18 05:02 08/05/18 05:12 Bedside Glucose 234 H 183 White Blood Count 17.8 #H Red Blood Count 2.63 L Hemoglobin 8.6 L Hematocrit 25.5 L Mean Corpuscular 97.0 Volume Mean Corpuscular 32.7 Hemoglobin Mean Corpuscular 33.7 Hemoglobin Concent Red Cell 23.3 H Distribution Width Platelet Count 170 # Mean Platelet Volume 12.8 H Immature 0.800 H Granulocytes % Neutrophils % 92.7 H Lymphocytes % 3.1 L Monocytes % 3.3 Eosinophils % 0.0 Basophils % 0.1 Nucleated Red Blood 0.8 H Cells % Immature 0.150 H Granulocytes # Neutrophils # 16.5 H Lymphocytes # 0.6 L Monocytes # 0.6 Eosinophils # 0.0 Basophils # 0.0 Nucleated Red Blood 0.2 H Cells # Sodium Level 130 L Potassium Level 3.9 Chloride Level 93 L Carbon Dioxide Level 26 Anion Gap 11 Blood Urea Nitrogen 32 H Creatinine 1.84 H Est Glomerular Filtrat Rate mL/min Glucose Level 227 #H Calcium Level 7.4 L Total Bilirubin 0.2 Direct Bilirubin 0.00 Indirect Bilirubin 0.2 Aspartate Amino 40 Transf (AST/SGOT) Alanine 35 Aminotransferase (AL T/SGPT) Alkaline Phosphatase 298 H Total Protein 4.9 L Albumin 1.7 L Globulin 3.20 Albumin/Globulin 0.53 Ratio Subjective 24 Hr Interval Summary Free Text/Dictation currently on sedation on phenyl epinephrine started again on hydrocortisone Exam/Review of Systems Exam Vitals Vital Signs Date Temp Pulse Resp B/P (MAP) Pulse Ox O2 O2 Flow FiO2 Time Delivery Rate 08/05/18 78 19 100 40 07:52 08/05/18 97.5 107/34 Mechanical 07:00 (58) Ventilator Intake and Output 08/04/18 08/04/18 08/05/18 1515:00 23:00 07:00 IntakeIntake Total 852.38 ml 447.76 ml 380 ml OutputOutput Total 0 ml 0 ml 0 ml BalanceBalance 852.38 ml 447.76 ml 380 ml Exam Exam espiratory: diminished breath sounds Cardiovascular: regular rate and rhythm Gastrointestinal: soft, bowel sounds (+) Extremities: edema (+) 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 currently sedated Right arm more swollen than the left Results Results 24hrs Laboratory Tests Test 08/04/18 09:16 08/04/18 12:23 08/04/18 17:02 08/04/18 21:27 Bedside Glucose 175 156 192 206 Test 08/05/18 01:16 08/05/18 05:02 08/05/18 05:12 Bedside Glucose 234 H 183 White Blood Count 17.8 #H Red Blood Count 2.63 L Hemoglobin 8.6 L Hematocrit 25.5 L Mean Corpuscular 97.0 Volume Mean Corpuscular 32.7 Hemoglobin Mean Corpuscular 33.7 Hemoglobin Concent Red Cell 23.3 H Distribution Width Platelet Count 170 # Mean Platelet Volume 12.8 H Immature 0.800 H Granulocytes % Neutrophils % 92.7 H Lymphocytes % 3.1 L Monocytes % 3.3 Eosinophils % 0.0 Basophils % 0.1 Nucleated Red Blood 0.8 H Cells % Immature 0.150 H Granulocytes # Neutrophils # 16.5 H Lymphocytes # 0.6 L Monocytes # 0.6 Eosinophils # 0.0 Basophils # 0.0 Nucleated Red Blood 0.2 H Cells # Sodium Level 130 L Potassium Level 3.9 Chloride Level 93 L Carbon Dioxide Level 26 Anion Gap 11 Blood Urea Nitrogen 32 H Creatinine 1.84 H Est Glomerular Filtrat Rate mL/min Glucose Level 227 #H Calcium Level 7.4 L Total Bilirubin 0.2 Direct Bilirubin 0.00 Indirect Bilirubin 0.2 Aspartate Amino 40 Transf (AST/SGOT) Alanine 35 Aminotransferase (AL T/SGPT) Alkaline Phosphatase 298 H Total Protein 4.9 L Albumin 1.7 L Globulin 3.20 Albumin/Globulin 0.53 Ratio Medications Medication Current Medications Multivit/Ca Carb/ B Cmplx/FA/Prenat (Shyann-Raj) 1 tab DAILY PO Last administered on 08/04/18at 09:15; Admin Dose 1 TAB; Start 07/14/18 at 09:00 Tramadol HCl (Ultram) 50 mg TID PRN PO PAIN LEVEL 6-10 Last administered on 07/24/18at 03:35; Admin Dose 50 MG; Start 07/13/18 at 23:30 Acetaminophen (Tylenol Tab) 650 mg Q6H PRN PO MILD PAIN(1-3)OR ELEVATED TEMP; Start 07/13/18 at 23:30 Hydralazine HCl (Apresoline) 20 mg Q6H PRN IV sbp over 170 Last administered on 07/14/18at 11:56; Admin Dose 20 MG; Start 07/13/18 at 23:30 Miscellaneous Information 1 ea NOTE XX ; Start 07/13/18 at 23:30 Glucose (Glutose) 15 gm Q15M PRN PO DECREASED GLUCOSE; Start 07/13/18 at 23:30 Glucose (Glutose) 22.5 gm Q15M PRN PO DECREASED GLUCOSE; Start 07/13/18 at 23:30 Dextrose (D50w Syringe) 25 ml Q15M PRN IV DECREASED GLUCOSE Last administered on 07/24/18at 08:19; Admin Dose 25 ML; Start 07/13/18 at 23:30 Dextrose (D50w Syringe) 50 ml Q15M PRN IV DECREASED GLUCOSE; Start 07/13/18 at 23:30 Glucagon (Glucagen) 1 mg Q15M PRN IM DECREASED GLUCOSE; Start 07/13/18 at 23:30 Glucose (Glutose) 15 gm Q15M PRN BUCCAL DECREASED GLUCOSE; Start 07/13/18 at 23:30 Ondansetron HCl (Zofran Inj) 4 mg Q4H PRN IV NAUSEA AND/OR VOMITING Last administered on 07/23/18at 16:30; Admin Dose 4 MG; Start 07/14/18 at 00:30 Miscellaneous Information (Pending [facility] Order For Wound Care) This patient easley... PRN PRN XX WOUND CARE; Start 07/14/18 at 04:30 Heparin Sodium (Porcine) (Heparin (1000 Units/ml)) 4,000 unit AFTER DIALYSIS CATHETER Last administered on 07/27/18at 20:16; Admin Dose 4,000 UNIT; Start 07/17/18 at 12:30 Diagnostic Test (Pha) (Accu-Chek) 1 ea 02 XX Last administered on 08/05/18 01:22; Admin Dose 1 EA; Start 07/19/18 at 02:00 IV Flush (NS 3 ml) 3 ml PER PROTOCOL IV ; Start 07/20/18 at 11:30 Calcium/Vitamin D (Oyster Shell/ Vit-D (500/200)) 1 tab BID PO Last administered on 08/04/18 21:15; Admin Dose 1 TAB; Start 07/20/18 at 21:00 Metoprolol Tartrate (Lopressor) 5 mg Q4H PRN IV HR > 110; Hold if SBP < 100 Last administered on 07/21/18 01:52; Admin Dose 5 MG; Start 07/21/18 at 02:00 Metoclopramide HCl (Reglan) 10 mg Q6H PRN IV NAUSEA AND/OR VOMITING Last administered on 07/26/18 22:31; Admin Dose 10 MG; Start 07/23/18 at 20:30 Norepinephrine 250 ml @ 1.875 mls/ hr TITRATE IV Last administered on 07/29/18 at 01:20; Admin Dose 3.75 MLS/HR; Start 07/24/18 at 11:00 Collagenase (Santyl) 1 applic DAILY TOP Last administered on 08/04/18 21:24; Admin Dose 1 APPLIC; Start 07/25/18 at 09:00 Phenylephrine HCl 80 mg/Dextrose 250 ml @ 18.75 mls/ hr TITRATE IV Last administered on 08/05/18 01:53; Admin Dose 24.38 MLS/HR; Start 07/24/18 at 20:30 Insulin Aspart (Novolog Insulin Pen) NOVOLOG *MILD* ALGORI... Q4 SC Last administered on 08/05/18 05:06; Admin Dose 2 UNIT; Start 07/24/18 at 21:00 Propofol 100 ml @ 1.851 mls/ hr Q12H IV Last administered on 07/28/18 20:30; Admin Dose 5.553 MLS/HR; Start 07/25/18 at 13:00 Fentanyl 100 ml @ 2.5 mls/hr TITRATE IV Last administered on 08/05/18 03:35; Admin Dose 5 MLS/HR; Start 07/26/18 at 11:00 Vancomycin HCl (Vanco Iv Per Pharmacy) VANCOMYCIN PER PHARMACY PER PROTOCOL XX ; Start 07/28/18 at 10:30 Cefepime HCl 50 ml @ 100 mls/hr Q24H IVPB Last administered on 08/04/18 12:21; Admin Dose 100 MLS/HR; Start 07/30/18 at 12:00 Lansoprazole (Prevacid) 30 mg BID@0600,1800 PO Last administered on 08/05/18 05:58; Admin Dose 30 MG; Start 07/30/18 at 18:00 Aspirin (Aspirin) 81 mg DAILY PO Last administered on 08/04/18 09:15; Admin Dose 81 MG; Start 07/30/18 at 11:30 Atorvastatin Calcium (Lipitor) 20 mg HS PO Last administered on 08/04/18 21:15; Admin Dose 20 MG; Start 07/30/18 at 21:00 Midodrine (Proamatine) 10 mg TID@09,13,17 PO Last administered on 08/04/18 17:03; Admin Dose 10 MG; Start 07/30/18 at 13:00 Insulin Glargine (Lantus) 15 units DAILY@0800 SC Last administered on 08/04/18 09:17; Admin Dose 15 UNITS; Start 07/31/18 at 09:00 Midazolam HCl 50 ml @ 1 mls/hr TITRATE IV Last administered on 08/03/18 14:52; Admin Dose 1 MLS/HR; Start 08/02/18 at 10:00 Epoetin Derick (Epogen (Esrd)) 3,000 units TuThSa@17 SC Last administered on 08/03/18 17:05; Admin Dose 3,000 UNITS; Start 08/03/18 at 17:00 Levothyroxine Sodium (Synthroid) 100 mcg DAILY@06 PO Last administered on 08/05/18 05:58; Admin Dose 100 MCG; Start 08/03/18 at 06:00 Hydrocortisone (Solu-Cortef) 100 mg TID IV Last administered on 08/04/18 21:14; Admin Dose 100 MG; Start 08/04/18 at 13:00 Vancomycin HCl 250 ml @ 125 mls/hr Q96H IVPB Last administered on 08/04/18 12:21; Admin Dose 125 MLS/HR; Start 08/04/18 at 12:00 ADAM DUARTE MD Aug 05, 2018 08:09
--- NOTE | 2018-08-05 08:46 | CONS ---
Assessment/Plan Assessment/Plan Hospital Course (Demo Recall) 78 yo female presented in cardiac arrest with prolonged ACLS Interval hx: Pt laying flat when I walked in. Tube feeds on hold. pale beige secretions from mouth. Liquid brown stool with wounds on buttocks and coccyx. WBC 17.8 which has been waxing and waning., hgb stable, positive FOB, no active bleeding noted by RN. Tolerating tube feeds. Alk phos 298. On phenylephrine, levophed, fentanyl and propofol gtt. Afebrile 1. Anemia, rule out gastrointestinal bleeding. -concern for GI bleed due to drop in H/H prior to cardiac arrest. -per RN bm was brown with potentially old melena, no active bleeding -FOB positive 2. Status post pulseless electrical activity period and cardiac arrest. 3. Ventilator-dependent respiratory failure. 4. End-stage renal disease, on dialysis. 5. 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 6. left aka 7. Ankle fracture. 8. Cirrhosis of liver 9. Gastroparesis 10. Multiple decubitus ulcers on buttocks and coccyx. 11. Enterococcus in urine Plan: Hold TF KUB Aspiration precautions Full code Monitor HH and replace as necessary. Continue tube feeds as tolerated Aspiration precautions Patient is unstable for any endoscopy procedures and there is no active GI bleeding at this point Pt examined and plan of care discussed with Dr. Hoskins Consultation Date/Type/Reason Admit Date/Time Jul 13, 2018 at 21:32 Initial Consult Date Requesting Provider: ADAM DUARTE MD Date/Time of Note DATE: 08/05/18 TIME: 08:26 Exam/Review of Systems Exam Vitals Vital Signs Date Temp Pulse Resp B/P (MAP) Pulse Ox O2 O2 Flow FiO2 Time Delivery Rate 08/05/18 78 19 100 40 07:52 08/05/18 97.5 107/34 Mechanical 07:00 (58) Ventilator Intake and Output 08/04/18 08/04/18 08/05/18 1414:59 22:59 06:59 IntakeIntake Total 596.63 ml 730.01 ml 380 ml OutputOutput Total 0 ml 0 ml 0 ml BalanceBalance 596.63 ml 730.01 ml 380 ml Respiratory: crackles/rales, diminished breath sounds Cardiovascular: regular rate and rhythm Gastrointestinal: soft, distended, mass (Lower rt mass when turned to side) Results Result Diagram: 08/05/18 0512 08/05/18 0512 Results 24hrs Laboratory Tests Test 08/04/18 09:16 08/04/18 12:23 08/04/18 17:02 08/04/18 21:27 Bedside Glucose 175 156 192 206 Test 08/05/18 01:16 08/05/18 05:02 08/05/18 05:12 Bedside Glucose 234 H 183 White Blood Count 17.8 #H Red Blood Count 2.63 L Hemoglobin 8.6 L Hematocrit 25.5 L Mean Corpuscular 97.0 Volume Mean Corpuscular 32.7 Hemoglobin Mean Corpuscular 33.7 Hemoglobin Concent Red Cell 23.3 H Distribution Width Platelet Count 170 # Mean Platelet Volume 12.8 H Immature 0.800 H Granulocytes % Neutrophils % 92.7 H Lymphocytes % 3.1 L Monocytes % 3.3 Eosinophils % 0.0 Basophils % 0.1 Nucleated Red Blood 0.8 H Cells % Immature 0.150 H Granulocytes # Neutrophils # 16.5 H Lymphocytes # 0.6 L Monocytes # 0.6 Eosinophils # 0.0 Basophils # 0.0 Nucleated Red Blood 0.2 H Cells # Sodium Level 130 L Potassium Level 3.9 Chloride Level 93 L Carbon Dioxide Level 26 Anion Gap 11 Blood Urea Nitrogen 32 H Creatinine 1.84 H Est Glomerular Filtrat Rate mL/min Glucose Level 227 #H Calcium Level 7.4 L Total Bilirubin 0.2 Direct Bilirubin 0.00 Indirect Bilirubin 0.2 Aspartate Amino 40 Transf (AST/SGOT) Alanine 35 Aminotransferase (AL T/SGPT) Alkaline Phosphatase 298 H Total Protein 4.9 L Albumin 1.7 L Globulin 3.20 Albumin/Globulin 0.53 Ratio Medications Medication Current Medications Multivit/Ca Carb/ B Cmplx/FA/Prenat (Shyann-Raj) 1 tab DAILY PO Last administered on 08/04/18at 09:15; Admin Dose 1 TAB; Start 07/14/18 at 09:00 Tramadol HCl (Ultram) 50 mg TID PRN PO PAIN LEVEL 6-10 Last administered on 07/24/18at 03:35; Admin Dose 50 MG; Start 07/13/18 at 23:30 Acetaminophen (Tylenol Tab) 650 mg Q6H PRN PO MILD PAIN(1-3)OR ELEVATED TEMP; Start 07/13/18 at 23:30 Hydralazine HCl (Apresoline) 20 mg Q6H PRN IV sbp over 170 Last administered on 07/14/18at 11:56; Admin Dose 20 MG; Start 07/13/18 at 23:30 Miscellaneous Information 1 ea NOTE XX ; Start 07/13/18 at 23:30 Glucose (Glutose) 15 gm Q15M PRN PO DECREASED GLUCOSE; Start 07/13/18 at 23:30 Glucose (Glutose) 22.5 gm Q15M PRN PO DECREASED GLUCOSE; Start 07/13/18 at 23:30 Dextrose (D50w Syringe) 25 ml Q15M PRN IV DECREASED GLUCOSE Last administered on 07/24/18at 08:19; Admin Dose 25 ML; Start 07/13/18 at 23:30 Dextrose (D50w Syringe) 50 ml Q15M PRN IV DECREASED GLUCOSE; Start 07/13/18 at 23:30 Glucagon (Glucagen) 1 mg Q15M PRN IM DECREASED GLUCOSE; Start 07/13/18 at 23:30 Glucose (Glutose) 15 gm Q15M PRN BUCCAL DECREASED GLUCOSE; Start 07/13/18 at 23:30 Ondansetron HCl (Zofran Inj) 4 mg Q4H PRN IV NAUSEA AND/OR VOMITING Last administered on 07/23/18at 16:30; Admin Dose 4 MG; Start 07/14/18 at 00:30 Miscellaneous Information [facility] This patient easley... PRN PRN XX WOUND CARE; Start 07/14/18 at 04:30 Heparin Sodium (Porcine) (Heparin (1000 Units/ml)) 4,000 unit AFTER DIALYSIS CATHETER Last administered on 07/27/18at 20:16; Admin Dose 4,000 UNIT; Start 07/17/18 at 12:30 Diagnostic Test (Pha) (Accu-Chek) 1 ea 02 XX Last administered on 08/05/18at 01:22; Admin Dose 1 EA; Start 07/19/18 at 02:00 IV Flush (NS 3 ml) 3 ml PER PROTOCOL IV ; Start 07/20/18 at 11:30 Calcium/Vitamin D (Oyster Shell/ Vit-D (500/200)) 1 tab BID PO Last administered on 08/04/18at 21:15; Admin Dose 1 TAB; Start 07/20/18 at 21:00 Metoprolol Tartrate (Lopressor) 5 mg Q4H PRN IV HR > 110; Hold if SBP < 100 Last administered on 07/21/18 01:52; Admin Dose 5 MG; Start 07/21/18 at 02:00 Metoclopramide HCl (Reglan) 10 mg Q6H PRN IV NAUSEA AND/OR VOMITING Last administered on 07/26/18 22:31; Admin Dose 10 MG; Start 07/23/18 at 20:30 Norepinephrine 250 ml @ 1.875 mls/ hr TITRATE IV Last administered on 07/29/18 01:20; Admin Dose 3.75 MLS/HR; Start 07/24/18 at 11:00 Collagenase (Santyl) 1 applic DAILY TOP Last administered on 08/04/18 21:24; Admin Dose 1 APPLIC; Start 07/25/18 at 09:00 Phenylephrine HCl 80 mg/Dextrose 250 ml @ 18.75 mls/ hr TITRATE IV Last administered on 08/05/18 01:53; Admin Dose 24.38 MLS/HR; Start 07/24/18 at 20:30 Insulin Aspart (Novolog Insulin Pen) NOVOLOG *MILD* ALGORI... Q4 SC Last administered on 08/05/18 05:06; Admin Dose 2 UNIT; Start 07/24/18 at 21:00 Propofol 100 ml @ 1.851 mls/ hr Q12H IV Last administered on 07/28/18 20:30; Admin Dose 5.553 MLS/HR; Start 07/25/18 at 13:00 Fentanyl 100 ml @ 2.5 mls/hr TITRATE IV Last administered on 08/05/18 03:35; Admin Dose 5 MLS/HR; Start 07/26/18 at 11:00 Vancomycin HCl (Vanco Iv Per Pharmacy) VANCOMYCIN PER PHARMACY PER PROTOCOL XX ; Start 07/28/18 at 10:30 Cefepime HCl 50 ml @ 100 mls/hr Q24H IVPB Last administered on 08/04/18 12:21; Admin Dose 100 MLS/HR; Start 07/30/18 at 12:00 Lansoprazole (Prevacid) 30 mg BID@0600,1800 PO Last administered on 08/05/18 05:58; Admin Dose 30 MG; Start 07/30/18 at 18:00 Aspirin (Aspirin) 81 mg DAILY PO Last administered on 08/04/18 09:15; Admin Dose 81 MG; Start 07/30/18 at 11:30 Atorvastatin Calcium (Lipitor) 20 mg HS PO Last administered on 08/04/18 21:15; Admin Dose 20 MG; Start 07/30/18 at 21:00 Midodrine (Proamatine) 10 mg TID@09,13,17 PO Last administered on 08/04/18 17:03; Admin Dose 10 MG; Start 07/30/18 at 13:00 Insulin Glargine (Lantus) 15 units DAILY@0800 SC Last administered on 08/04/18 09:17; Admin Dose 15 UNITS; Start 07/31/18 at 09:00 Midazolam HCl 50 ml @ 1 mls/hr TITRATE IV Last administered on 08/03/18 14:52; Admin Dose 1 MLS/HR; Start 08/02/18 at 10:00 Epoetin Derick (Epogen (Esrd)) 3,000 units TuThSa@17 SC Last administered on 08/03/18 17:05; Admin Dose 3,000 UNITS; Start 08/03/18 at 17:00 Levothyroxine Sodium (Synthroid) 100 mcg DAILY@06 PO Last administered on 08/05/18 05:58; Admin Dose 100 MCG; Start 08/03/18 at 06:00 Hydrocortisone (Solu-Cortef) 100 mg TID IV Last administered on 08/04/18 21:14; Admin Dose 100 MG; Start 08/04/18 at 13:00 Vancomycin HCl 250 ml @ 125 mls/hr Q96H IVPB Last administered on 08/04/18 12:21; Admin Dose 125 MLS/HR; Start 08/04/18 at 12:00 PATRICIA ALLEN Aug 05, 2018 08:46
[2018-08-05] MEDS: ASPIRIN 81 MG TAB PO SCH (09:24)
[2018-08-05] MEDS: CALCIUM/VITAMIN D (500/200) TAB PO SCH ×2 (09:24→20:43)
[2018-08-05] MEDS: HYDROCORTISONE 100 MG INJ IV SCH ×3 (09:24→20:43)
[2018-08-05] MEDS: BALSAM PERU/CASTOR OIL 60 GM TUBE TOP SCH ×2 (09:24→20:43)
[2018-08-05] MEDS: MULTIVIT/CA CARB/B CMPLX/FA TAB PO SCH (09:24)
[2018-08-05] MEDS: INSULIN GLARGINE [LANTus] (100 UNITS/ML) SYG SC SCH (09:28)
[2018-08-05] MEDS: MIDODRINE 5 MG TAB PO SCH ×3 (09:29→16:53)
[2018-08-05] MEDS ORDERED: METOCLOPRAMIDE 10 MG INJ IV PRN (10:49)
--- NOTE | 2018-08-05 11:07 | CONS ---
Consult Date/Type/Reason Admit Date/Time Jul 13, 2018 at 21:32 Initial Consult Date Type of Consult Pulmonary Requesting Provider: ADAM DUARTE MD Date/Time of Note DATE: 08/05/18 TIME: 11:03 Subjective Remains orally intubated on mechanical ventilation. Remains somnolent. Currently decreasing vasopressor requirements. Will need PICC line and removal of left femoral line. Objective Vital Signs Date Temp Pulse Resp B/P (MAP) Pulse Ox O2 O2 Flow FiO2 Time Delivery Rate 08/05/18 76 18 122/35 98 10:30 (64) 08/05/18 Mechanical 10:00 Ventilator 08/05/18 40 09:14 08/05/18 97.9 08:00 Intake and Output 08/04/18 08/04/18 08/05/18 1414:59 22:59 06:59 IntakeIntake Total 596.63 ml 821.15 ml 623.04 ml OutputOutput Total 0 ml 0 ml 0 ml BalanceBalance 596.63 ml 821.15 ml 623.04 ml Exam PHYSICAL EXAMINATION: GENERAL: Elderly-appearing lady, opens eyes to voice, talking in full and complete sentences VITAL SIGNS: NECK: Supple. No JVD or lymphadenopathy. CARDIAC: S1, S2, no added sounds or murmurs. CHEST: Diminished air entry bilaterally with rales. ABDOMEN: Soft, nontender. No guarding or rebound. EXTREMITIES: No cyanosis, clubbing or edema. NEUROLOGIC: Generalized weakness. Vent Setting Ventilator Support Mode: AC, VC plus Fraction of Inspired Oxygen pe: 40 Positive End Expiratory Pressu: 5.0 Results/Medications Result Diagram: 08/05/1851108/05/18511 Results 24 hrs Laboratory Tests Test 08/04/18 12:23 08/04/18 17:02 08/04/18 21:27 08/05/18 01:16 Bedside Glucose 156 192 206 234 H Test 08/05/18 05:02 08/05/18 05:12 08/05/18 09:21 Bedside Glucose 183 293 H White Blood Count 17.8 #H Red Blood Count 2.63 L Hemoglobin 8.6 L Hematocrit 25.5 L Mean Corpuscular 97.0 Volume Mean Corpuscular 32.7 Hemoglobin Mean Corpuscular 33.7 Hemoglobin Concent Red Cell 23.3 H Distribution Width Platelet Count 170 # Mean Platelet Volume 12.8 H Immature 0.800 H Granulocytes % Neutrophils % 92.7 H Lymphocytes % 3.1 L Monocytes % 3.3 Eosinophils % 0.0 Basophils % 0.1 Nucleated Red Blood 0.8 H Cells % Immature 0.150 H Granulocytes # Neutrophils # 16.5 H Lymphocytes # 0.6 L Monocytes # 0.6 Eosinophils # 0.0 Basophils # 0.0 Nucleated Red Blood 0.2 H Cells # Sodium Level 130 L Potassium Level 3.9 Chloride Level 93 L Carbon Dioxide Level 26 Anion Gap 11 Blood Urea Nitrogen 32 H Creatinine 1.84 H Est Glomerular Filtrat Rate mL/min Glucose Level 227 #H Calcium Level 7.4 L Total Bilirubin 0.2 Direct Bilirubin 0.00 Indirect Bilirubin 0.2 Aspartate Amino 40 Transf (AST/SGOT) Alanine 35 Aminotransferase (AL T/SGPT) Alkaline Phosphatase 298 H Total Protein 4.9 L Albumin 1.7 L Globulin 3.20 Albumin/Globulin 0.53 Ratio Medications Current Medications Multivit/Ca Carb/ B Cmplx/FA/Prenat (Shyann-Raj) 1 tab DAILY PO Last administe red on 08/05/18at 09:24; Admin Dose 1 TAB; Start 07/14/18 at 09:00 Tramadol HCl (Ultram) 50 mg TID PRN PO PAIN LEVEL 6-10 Last administered on 07/24/18at 03:35; Admin Dose 50 MG; Start 07/13/18 at 23:30 Acetaminophen (Tylenol Tab) 650 mg Q6H PRN PO MILD PAIN(1-3)OR ELEVATED TEMP; Start 07/13/18 at 23:30 Hydralazine HCl (Apresoline) 20 mg Q6H PRN IV sbp over 170 Last administered on 07/14/18at 11:56; Admin Dose 20 MG; Start 07/13/18 at 23:30 Miscellaneous Information 1 ea NOTE XX ; Start 07/13/18 at 23:30 Glucose (Glutose) 15 gm Q15M PRN PO DECREASED GLUCOSE; Start 07/13/18 at 23:30 Glucose (Glutose) 22.5 gm Q15M PRN PO DECREASED GLUCOSE; Start 07/13/18 at 23:30 Dextrose (D50w Syringe) 25 ml Q15M PRN IV DECREASED GLUCOSE Last administered on 07/24/18at 08:19; Admin Dose 25 ML; Start 07/13/18 at 23:30 Dextrose (D50w Syringe) 50 ml Q15M PRN IV DECREASED GLUCOSE; Start 07/13/18 at 23:30 Glucagon (Glucagen) 1 mg Q15M PRN IM DECREASED GLUCOSE; Start 07/13/18 at 23:30 Glucose (Glutose) 15 gm Q15M PRN BUCCAL DECREASED GLUCOSE; Start 07/13/18 at 23:30 Ondansetron HCl (Zofran Inj) 4 mg Q4H PRN IV NAUSEA AND/OR VOMITING Last administered on 07/23/18 16:30; Admin Dose 4 MG; Start 07/14/18 at 00:30 Miscellaneous Information (Pending Santyl Order For Wound Care) This patient easley... PRN PRN XX WOUND CARE; Start 07/14/18 at 04:30 Heparin Sodium (Porcine) (Heparin (1000 Units/ml)) 4,000 unit AFTER DIALYSIS CATHETER Last administered on 07/27/18 20:16; Admin Dose 4,000 UNIT; Start 07/17/18 at 12:30 Diagnostic Test (Pha) (Accu-Chek) 1 ea 02 XX Last administered on 08/05/18 01:22; Admin Dose 1 EA; Start 07/19/18 at 02:00 IV Flush (NS 3 ml) 3 ml PER PROTOCOL IV ; Start 07/20/18 at 11:30 Calcium/Vitamin D (Oyster Shell/ Vit-D (500/200)) 1 tab BID PO Last administered on 08/05/18 09:24; Admin Dose 1 TAB; Start 07/20/18 at 21:00 Metoprolol Tartrate (Lopressor) 5 mg Q4H PRN IV HR > 110; Hold if SBP < 100 Last administered on 07/21/18 01:52; Admin Dose 5 MG; Start 07/21/18 at 02:00 Norepinephrine 250 ml @ 1.875 mls/ hr TITRATE IV Last administered on 07/29/18 01:20; Admin Dose 3.75 MLS/HR; Start 07/24/18 at 11:00 Collagenase (Santyl) 1 applic DAILY TOP Last administered on 08/04/18 21:24; Admin Dose 1 APPLIC; Start 07/25/18 at 09:00 Phenylephrine HCl 80 mg/Dextrose 250 ml @ 18.75 mls/ hr TITRATE IV Last administered on 08/05/18 01:53; Admin Dose 24.38 MLS/HR; Start 07/24/18 at 20:30 Insulin Aspart (Novolog Insulin Pen) NOVOLOG *MILD* ALGORI... Q4 SC Last administered on 08/05/18 09:28; Admin Dose 4 UNIT; Start 07/24/18 at 21:00 Propofol 100 ml @ 1.851 mls/ hr Q12H IV Last administered on 07/28/18 20:30; Admin Dose 5.553 MLS/HR; Start 07/25/18 at 13:00 Fentanyl 100 ml @ 2.5 mls/hr TITRATE IV Last administered on 08/05/18 03:35; Admin Dose 5 MLS/HR; Start 07/26/18 at 11:00 Vancomycin HCl (Vanco Iv Per Pharmacy) VANCOMYCIN PER PHARMACY PER PROTOCOL XX ; Start 07/28/18 at 10:30 Cefepime HCl 50 ml @ 100 mls/hr Q24H IVPB Last administered on 08/04/18 12:21; Admin Dose 100 MLS/HR; Start 07/30/18 at 12:00 Lansoprazole (Prevacid) 30 mg BID@0600,1800 PO Last administered on 08/05/18 05:58; Admin Dose 30 MG; Start 07/30/18 at 18:00 Aspirin (Aspirin) 81 mg DAILY PO Last administered on 08/05/18 09:24; Admin Dose 81 MG; Start 07/30/18 at 11:30 Atorvastatin Calcium (Lipitor) 20 mg HS PO Last administered on 08/04/18 21:15; Admin Dose 20 MG; Start 07/30/18 at 21:00 Midodrine (Proamatine) 10 mg TID@,13,17 PO Last administered on 08/05/18 09:29; Admin Dose 10 MG; Start 07/30/18 at 13:00 Insulin Glargine (Lantus) 15 units DAILY@0800 SC Last administered on 08/05/18 09:28; Admin Dose 15 UNITS; Start 07/31/18 at 09:00 Midazolam HCl 50 ml @ 1 mls/hr TITRATE IV Last administered on 2/23/19at 14:52; Admin Dose 1 MLS/HR; Start 08/02/18 at 10:00 Epoetin Derick (Epogen (Esrd)) 3,000 units TuThSa@17 SC Last administered on 08/03/18at 17:05; Admin Dose 3,000 UNITS; Start 08/03/18 at 17:00 Levothyroxine Sodium (Synthroid) 100 mcg DAILY@06 PO Last administered on 08/05/18at 05:58; Admin Dose 100 MCG; Start 08/03/18 at 06:00 Hydrocortisone (Solu-Cortef) 100 mg TID IV Last administered on 08/05/18at 09:24; Admin Dose 100 MG; Start 08/04/18 at 13:00 Vancomycin HCl 250 ml @ 125 mls/hr Q96H IVPB Last administered on 08/04/18at 12:21; Admin Dose 125 MLS/HR; Start 08/04/18 at 12:00 Metoclopramide HCl (Reglan) 5 mg Q6H PRN IV NAUSEA AND/OR VOMITING; Start 08/05/18 at 10:49 Assessment/Plan Hospital Course (Demo Recall) IMPRESSION 1. Cardiopulmonary arrest. Prolonged CPR with ACLS protocol. 2. Multiple cardiopulmonary arrests and prolonged hypotension, now with persistent encephalopathy 3. End-stage renal failure on hemodialysis. 4. Possible aspiration pneumonia. Septic shock. Requiring vasopressor suppo rt, increasing pressor requirements persistent right lower lobe infiltrate 5. History of severe peripheral vascular disease. 6. Possible acute GI bleed given acute drop in hemoglobin prior to cardiac arrest 7. Stress dose steroids Plan 1. Vasopressor support as needed. Increased stress dose steroids decrease vasopressor requirements noted 2. Mechanical ventilation pending tracheostomy 3. Broad-spectrum antibiotic coverage for possible aspiration. 4. GI recommendations pending G-tube 5. DVT and GI prophylaxis. Critical care time 40 minutes. DEVAN MIDDLETON MD, FCCP Aug 05, 2018 11:07
[2018-08-05] MEDS: CEFEPIME 1GM/50 ML IVPB SCH (12:24)
--- NOTE | 2018-08-05 12:51 | CONS ---
Assessment/Plan Assessment/Plan Hospital Course (Demo Recall) IMP: 1. Preoperative for LE ORIF-NL EF by echo with mod-sev TR. Lexiscan with NL EF and partially reversible inferior wall defect. Thus patient has no cardiac contraindication to proceeding to OR on current medications but at moderate to high risk. Now post-op s/p ORIF 2.Positive troponin 3.BRadycardia to 40's/stable BP. S Misael- now improved with decrease in dose of clonidine and having short runs of tachycardia/SVT. ? Now in AF s/p code yesterday 4.HTN-uncontrolled at this time 5.ankle fracture 6.ESRD on HD 7. TR-mod-sev 8. ? sick euthyroid-elevated TSH and Free t4 9. Patient with PEA and VFA this am requiring ACLS and intubation protocol on onset during HD 10. anemia-acute drop. ? where bleeding,internal given abd pain. Now s/p transfusion PRBC's/possible melena overnight 11.PAF- in AF at this time. Reasonable rates on amiodarone 12. Nstemi- downtrending cardiac enzymes significantly 14. hypotension-on jake- s/p repeat echo 07/29 with EF slightly lower but still wnl 50% 15. UTI Recc -ICU -Continue Jake with weaning as possible -continue vent support -Continue ASA as tolerated. Not on systemic anticoagulation secondary to anemia/GIB -transfuse PRBC's as necessary -HD as tolerated only -trend cardiac enzymes -Contineu abx's and f/u cx data -ongoing family discussion about direction of care with patient now currently full code Consultation Date/Type/Reason Admit Date/Time Jul 13, 2018 at 21:32 Initial Consult Date 07/16/18 Type of Consult Cardiology Reason for Consultation hypotension Requesting Provider: ADAM DUARTE MD Date/Time of Note DATE: 08/05/18 TIME: 12:50 Exam/Review of Systems Vital Signs Vitals Vital Signs Date Temp Pulse Resp B/P (MAP) Pulse Ox O2 O2 Flow FiO2 Time Delivery Rate 08/05/18 75 12:00 08/05/18 16 99 30 11:29 08/05/18 122/35 10:30 (64) 08/05/18 Mechanical 10:00 Ventilator 08/05/18 97.9 08:00 Intake and Output 08/04/18 08/04/18 08/05/18 1515:00 23:00 07:00 IntakeIntake Total 852.38 ml 569.28 ml 623.04 ml OutputOutput Total 0 ml 0 ml 0 ml BalanceBalance 852.38 ml 569.28 ml 623.04 ml Exam Exam Review of Systems: CONSTITUTIONAL: No fevers, chills. PULMONARY: No sob CARDIOVASCULAR: No chest pain/palpitations GASTROINTESTINAL: No nausea/vomiting. GENITOURINARY: No hematuria/dysuria. MUSCULOSKELETAL: No myagias/arthalgias. PSYCHIATRIC: The patient denies depression. NEUROLOGIC: No weakness Constitutional: alert Psych: no complaints Head: normocephalic ENMT: mucosa pink and moist Neck: supple, jvd (9 cm water) Respiratory: diminished breath sounds (at bases/B) Cardiovascular: regular rate and rhythm Gastrointestinal: soft, non-tender Musculoskeletal: muscle weakness (generalized) Extremities: other (LE amputation) Labs Result Diagram: 08/05/18 0512 08/05/18 0512 Results 24hrs Laboratory Tests Test 08/04/18 17:02 08/04/18 21:27 08/05/18 01:16 08/05/18 05:02 Bedside Glucose 192 206 234 H 183 Test 08/05/18 05:12 08/05/18 09:21 08/05/18 12:23 White Blood Count 17.8 #H Red Blood Count 2.63 L Hemoglobin 8.6 L Hematocrit 25.5 L Mean Corpuscular 97.0 Volume Mean Corpuscular 32.7 Hemoglobin Mean Corpuscular 33.7 Hemoglobin Concent Red Cell 23.3 H Distribution Width Platelet Count 170 # Mean Platelet Volume 12.8 H Immature 0.800 H Granulocytes % Neutrophils % 92.7 H Lymphocytes % 3.1 L Monocytes % 3.3 Eosinophils % 0.0 Basophils % 0.1 Nucleated Red Blood 0.8 H Cells % Immature 0.150 H Granulocytes # Neutrophils # 16.5 H Lymphocytes # 0.6 L Monocytes # 0.6 Eosinophils # 0.0 Basophils # 0.0 Nucleated Red Blood 0.2 H Cells # Sodium Level 130 L Potassium Level 3.9 Chloride Level 93 L Carbon Dioxide Level 26 Anion Gap 11 Blood Urea Nitrogen 32 H Creatinine 1.84 H Est Glomerular Filtrat Rate mL/min Glucose Level 227 #H Calcium Level 7.4 L Total Bilirubin 0.2 Direct Bilirubin 0.00 Indirect Bilirubin 0.2 Aspartate Amino 40 Transf (AST/SGOT) Alanine 35 Aminotransferase (AL T/SGPT) Alkaline Phosphatase 298 H Total Protein 4.9 L Albumin 1.7 L Globulin 3.20 Albumin/Globulin 0.53 Ratio Bedside Glucose 293 H 303 H Medications Medications Current Medications Multivit/Ca Carb/ B Cmplx/FA/Prenat (Shyann-Raj) 1 tab DAILY PO Last administered on 08/05/18 09:24; Admin Dose 1 TAB; Start 07/14/18 at 09:00 Tramadol HCl (Ultram) 50 mg TID PRN PO PAIN LEVEL 6-10 Last administered on 07/24/18 03:35; Admin Dose 50 MG; Start 07/13/18 at 23:30 Acetaminophen (Tylenol Tab) 650 mg Q6H PRN PO MILD PAIN(1-3)OR ELEVATED TEMP; Start 07/13/18 at 23:30 Hydralazine HCl (Apresoline) 20 mg Q6H PRN IV sbp over 170 Last administered on 07/14/18at 11:56; Admin Dose 20 MG; Start 07/13/18 at 23:30 Miscellaneous Information 1 ea NOTE XX ; Start 07/13/18 at 23:30 Glucose (Glutose) 15 gm Q15M PRN PO DECREASED GLUCOSE; Start 07/13/18 at 23:30 Glucose (Glutose) 22.5 gm Q15M PRN PO DECREASED GLUCOSE; Start 07/13/18 at 23:30 Dextrose (D50w Syringe) 25 ml Q15M PRN IV DECREASED GLUCOSE Last administered on 07/24/18at 08:19; Admin Dose 25 ML; Start 07/13/18 at 23:30 Dextrose (D50w Syringe) 50 ml Q15M PRN IV DECREASED GLUCOSE; Start 07/13/18 at 23:30 Glucagon (Glucagen) 1 mg Q15M PRN IM DECREASED GLUCOSE; Start 07/13/18 at 23:30 Glucose (Glutose) 15 gm Q15M PRN BUCCAL DECREASED GLUCOSE; Start 07/13/18 at 23:30 Ondansetron HCl (Zofran Inj) 4 mg Q4H PRN IV NAUSEA AND/OR VOMITING Last a dministered on 07/23/18at 16:30; Admin Dose 4 MG; Start 07/14/18 at 00:30 Miscellaneous Information (Pending Santyl Order For Wound Care) This patient easley... PRN PRN XX WOUND CARE; Start 07/14/18 at 04:30 Heparin Sodium (Porcine) (Heparin (1000 Units/ml)) 4,000 unit AFTER DIALYSIS CATHETER Last administered on 07/27/18 20:16; Admin Dose 4,000 UNIT; Start 07/17/18 at 12:30 Diagnostic Test (Pha) (Accu-Chek) 1 ea 02 XX Last administered on 08/05/18 01:22; Admin Dose 1 EA; Start 07/19/18 at 02:00 IV Flush (NS 3 ml) 3 ml PER PROTOCOL IV ; Start 07/20/18 at 11:30 Calcium/Vitamin D (Oyster Shell/ Vit-D (500/200)) 1 tab BID PO Last administered on 08/05/18 09:24; Admin Dose 1 TAB; Start 07/20/18 at 21:00 Metoprolol Tartrate (Lopressor) 5 mg Q4H PRN IV HR > 110; Hold if SBP < 100 Last administered on 07/21/18 01:52; Admin Dose 5 MG; Start 07/21/18 at 02:00 Norepinephrine 250 ml @ 1.875 mls/ hr TITRATE IV Last administered on 07/29/18 01:20; Admin Dose 3.75 MLS/HR; Start 07/24/18 at 11:00 Collagenase (Santyl) 1 applic DAILY TOP Last administered on 08/04/18 21:24; Admin Dose 1 APPLIC; Start 07/25/18 at 09:00 Phenylephrine HCl 80 mg/Dextrose 250 ml @ 18.75 mls/ hr TITRATE IV Last adm inistered on 08/05/18 12:31; Admin Dose 18.75 MLS/HR; Start 07/24/18 at 20:30 Insulin Aspart (Novolog Insulin Pen) NOVOLOG *MILD* ALGORI... Q4 SC Last administered on 08/05/18 12:28; Admin Dose 5 UNIT; Start 07/24/18 at 21:00 Propofol 100 ml @ 1.851 mls/ hr Q12H IV Last administered on 07/28/18 20:30; Admin Dose 5.553 MLS/HR; Start 07/25/18 at 13:00 Fentanyl 100 ml @ 2.5 mls/hr TITRATE IV Last administered on 08/05/18 03:35; Admin Dose 5 MLS/HR; Start 07/26/18 at 11:00 Vancomycin HCl (Vanco Iv Per Pharmacy) VANCOMYCIN PER PHARMACY PER PROTOCOL XX ; Start 07/28/18 at 10:30 Cefepime HCl 50 ml @ 100 mls/hr Q24H IVPB Last administered on 08/05/18 12:24; Admin Dose 100 MLS/HR; Start 07/30/18 at 12:00 Lansoprazole (Prevacid) 30 mg BID@0600,1800 PO Last administered on 08/05/18 05:58; Admin Dose 30 MG; Start 07/30/18 at 18:00 Aspirin (Aspirin) 81 mg DAILY PO Last administered on 08/05/18 09:24; Admin Dose 81 MG; Start 07/30/18 at 11:30 Atorvastatin Calcium (Lipitor) 20 mg HS PO Last administered on 08/04/18 21:15; Admin Dose 20 MG; Start 07/30/18 at 21:00 Midodrine (Proamatine) 10 mg TID@09,13,17 PO Last administered on 08/05/18 12:31; Admin Dose 10 MG; Start 07/30/18 at 13:00 Insulin Glargine (Lantus) 15 units DAILY@0800 SC Last administered on 08/05/18 09:28; Admin Dose 15 UNITS; Start 07/31/18 at 09:00 Midazolam HCl 50 ml @ 1 mls/hr TITRATE IV Last administered on 08/03/18 14:52; Admin Dose 1 MLS/HR; Start 08/02/18 at 10:00 Epoetin Derick (Epogen (Esrd)) 3,000 units TuThSa@17 SC Last administered on 08/03/18 17:05; Admin Dose 3,000 UNITS; Start 08/03/18 at 17:00 Levothyroxine Sodium (Synthroid) 100 mcg DAILY@06 PO Last administered on 08/05/18 05:58; Admin Dose 100 MCG; Start 08/03/18 at 06:00 Hydrocortisone (Solu-Cortef) 100 mg TID IV Last administered on 2/25/19at 12:24; Admin Dose 100 MG; Start 08/04/18 at 13:00 Vancomycin HCl 250 ml @ 125 mls/hr Q96H IVPB Last administered on 08/04/18at 12:21; Admin Dose 125 MLS/HR; Start 08/04/18 at 12:00 Metoclopramide HCl (Reglan) 5 mg Q6H PRN IV NAUSEA AND/OR VOMITING; Start 08/05/18 at 10:49 JUSTICE HARRISON Aug 05, 2018 12:51
--- NOTE | 2018-08-05 13:14 | CONS ---
DATE OF ADMISSION: 07/13/2018 DATE OF CONSULTATION: 08/05/2018 TYPE OF CONSULTATION: Infectious disease. REASON FOR CONSULTATION: Antibiotic management. HISTORY OF PRESENT ILLNESS: Holly Lanza is a 78-year-old female with end-stage renal disease on hem odialysis, who comes in after missing 3 dialysis sessions. At the last transplant apparently dropped the patient and suffered tibia-fibular fracture on the right side and a stump contusion on the left treated at an outside hospital. She complained of mild headache on admission. Her past problems include: 1. Bypass surgery. 2. BKA. 3. Hypertension. 4. Diabetes. 5. As noted, chronic renal failure. On admission, her right lower extremity had a splint and she had a contusion to the left stump of the lower extremity. White count was 6.6, H and H of 10.9 and 34.1, platelet count 344,000. BUN and cr eatinine is 66/5.66. She had cardiomegaly, pulmonary edema with right pleural effusion, aortic ather osclerosis, previous median sternotomy. CT scan of the brain showed no acute intracranial pathology, air fluid levels in the bilateral sphenoid sinuses which may represent acute sinusitis in the correc t clinical setting, small right posterior frontal cortical infarct in the vertex, mild to moderate di ffuse volume loss, mild chronic microvascular ischemic changes. She presented with general malaise a nd weakness. HOSPITAL COURSE: She was seen by orthopedics, Dr. Steff Boston. She has had obtained CT scan of the [facility] ankle to further assess the fracture better, possible manipulative reduction under anesthesia. I t may be better to avoid open reduction internal fixation. She was seen in cardiology consultation b luis manuel Cruz. No acute events. She was seen by multiple consultants including Dr. Hoskins in GI. Th e patient had a medial central IV catheter and urinary catheter. She had cardiopulmonary arrest stat us post V-fib, respiratory failure status post intubation, hypotension status post shock, cardiac osvaldo aniket septic shock, anemia likely secondary to GI bleed, acute comminuted fracture of the distal tibia and fibula that involved the distal tibiofibular joint. She had an extraarticular pilon fracture, le ft stump bruise now noticed to have a fracture on the left hip on the x-rays. She is status post cod e blue. Her white count on 07/25/2018 was 21.5. Currently, she still has central line and urinary c atheter. She is status post cardiac arrest and respiratory failure, status post intubation. White c ount today is 17.8. BUN and creatinine is 32/1.84 and she is on dialysis. Microbiology: She just h ad Enterococcus species in her urine. She is on vancomycin and cefepime. PAST MEDICAL HISTORY: As outlined. FAMILY HISTORY: Noncontributory. SOCIAL HISTORY: She does not smoke, drink or abuse drugs. ALLERGIES: NONE TO PENICILLIN, SULFA OR FOODS. MEDICATIONS: Per chart. REVIEW OF SYSTEMS: As per HPI. PHYSICAL EXAMINATION: GENERAL: The patient is intubated on a respirator. SKIN: Without generalized rash. HEENT: Within normal limits. NECK: Supple. She has an ET tube. LYMPH NODES: None palpable. CHEST: Decreased breath sounds at the bases. HEART: Without murmur or gallop. ABDOMEN: Soft, nontender. EXTREMITIES: Left lower extremity has a stump. Right lower extremity is bandaged. IMPRESSION AND PLAN: Continue current therapy on vancomycin and cefepime. We may want to stop the c efepime in the near future. Her chest x-ray just shows grossly stable bibasilar patchy airspace dise ase favor to be on the basis of infection or aspiration, so we will continue the cefepime as ordered. I will dictate my findings to Dr. Hernandez, to Dr. Krueger and numerous consultants. Dictated By: YESENIA HILL MD, JD/RENETTA Conf#: [id number] DID#: [id number] CC: GLORIA HOSKINS MD; SAM KRUEGER MD;*EndCC*
[2018-08-05] MEDS: ATORVASTATIN 20 MG TAB PO SCH (20:43)
--- NOTE | 2018-08-05 20:45 | CONS ---
Consult Date/Type/Reason Admit Date/Time Jul 13, 2018 at 21:32 Initial Consult Date Type of Consultation: neuro Requesting Provider: ADAM DUARTE MD Date/Time of Note DATE: 08/05/18 TIME: 20:40 Subjective intubated, unresponsive Objective Vitals Vital Signs Date Temp Pulse Resp B/P (MAP) Pulse Ox O2 O2 Flow FiO2 Time Delivery Rate 08/05/18 69 18 119/44 99 20:15 (69) 08/05/18 97.7 Mechanical 20:00 Ventilator 08/05/18 30 17:00 Intake and Output 08/04/18 08/04/18 08/05/18 1515:00 23:00 07:00 IntakeIntake Total 852.38 ml 569.28 ml 623.04 ml OutputOutput Total 0 ml 0 ml 0 ml BalanceBalance 852.38 ml 569.28 ml 623.04 ml Results/Medications Result Diagram: 08/05/18 0512 08/05/18 0512 Results 24 hrs Laboratory Tests Test 08/04/18 21:27 08/05/18 01:16 08/05/18 05:02 08/05/18 05:12 Bedside Glucose 206 234 H 183 White Blood Count 17.8 #H Red Blood Count 2.63 L Hemoglobin 8.6 L Hematocrit 25.5 L Mean Corpuscular 97.0 Volume Mean Corpuscular 32.7 Hemoglobin Mean Corpuscular 33.7 Hemoglobin Concent Red Cell 23.3 H Distribution Width Platelet Count 170 # Mean Platelet Volume 12.8 H Immature 0.800 H Granulocytes % Neutrophils % 92.7 H Lymphocytes % 3.1 L Monocytes % 3.3 Eosinophils % 0.0 Basophils % 0.1 Nucleated Red Blood 0.8 H Cells % Immature 0.150 H Granulocytes # Neutrophils # 16.5 H Lymphocytes # 0.6 L Monocytes # 0.6 Eosinophils # 0.0 Basophils # 0.0 Nucleated Red Blood 0.2 H Cells # Sodium Level 130 L Potassium Level 3.9 Chloride Level 93 L Carbon Dioxide Level 26 Anion Gap 11 Blood Urea Nitrogen 32 H Creatinine 1.84 H Est Glomerular Filtrat Rate mL/min Glucose Level 227 #H Calcium Level 7.4 L Total Bilirubin 0.2 Direct Bilirubin 0.00 Indirect Bilirubin 0.2 Aspartate Amino 40 Transf (AST/SGOT) Alanine 35 Aminotransferase (AL T/SGPT) Alkaline Phosphatase 298 H Total Protein 4.9 L Albumin 1.7 L Globulin 3.20 Albumin/Globulin 0.53 Ratio Test 08/05/18 09:21 08/05/18 12:23 08/05/18 16:52 Bedside Glucose 293 H 303 H 272 H Home Meds Reported Medications Atorvastatin* (Atorvastatin*) 40 Mg Tablet, 40 MG PO QHS, #30 TAB 07/13/18 Carvedilol* (Carvedilol*) 3.125 Mg Tablet, 3.125 MG PO BID, #60 TAB 07/13/18 Tramadol HCl (Tramadol HCl) 50 Mg Tablet, 50 MG PO TID PRN for PAIN LEVEL 6-10, #90 TAB 07/13/18 Multivit/Ca Carb/B Cmplx/Fa* (Shyann-Raj*) 1 Tab Tab, 1 TAB PO DAILY, TAB 07/13/18 Isosorbide Mononitrate* (Isosorbide Mononitrate*) 60 Mg Tab.er.24h, 60 MG PO DAILY, TAB 07/13/18 Pantoprazole* (Protonix*) 20 Mg Tablet.dr, 20 MG PO DAILY, TAB 07/13/18 Clonidine Hcl* (Clonidine Hcl*) 0.1 Mg Tab, 0.1 MG PO BID, TAB 07/13/18 Aspirin (Aspir-Low) 81 Mg Tablet.dr, 81 MG PO DAILY 07/13/18 Medications Current Medications Multivit/Ca Carb/ B Cmplx/FA/Prenat (Shyann-Raj) 1 tab DAILY PO Last administered on 08/05/18at 09:24; Admin Dose 1 TAB; Start 07/14/18 at 09:00 Tramadol HCl (Ultram) 50 mg TID PRN PO PAIN LEVEL 6-10 Last administered on 07/24/18at 03:35; Admin Dose 50 MG; Start 07/13/18 at 23:30 Acetaminophen (Tylenol Tab) 650 mg Q6H PRN PO MILD PAIN(1-3)OR ELEVATED TEMP; Start 07/13/18 at 23:30 Hydralazine HCl (Apresoline) 20 mg Q6H PRN IV sbp over 170 Last administered on 07/14/18at 11:56; Admin Dose 20 MG; Start 07/13/18 at 23:30 Miscellaneous Information 1 ea NOTE XX ; Start 07/13/18 at 23:30 Glucose (Glutose) 15 gm Q15M PRN PO DECREASED GLUCOSE; Start 07/13/18 at 23:30 Glucose (Glutose) 22.5 gm Q15M PRN PO DECREASED GLUCOSE; Start 07/13/18 at 23:30 Dextrose (D50w Syringe) 25 ml Q15M PRN IV DECREASED GLUCOSE Last administered on 07/24/18at 08:19; Admin Dose 25 ML; Start 07/13/18 at 23:30 Dextrose (D50w Syringe) 50 ml Q15M PRN IV DECREASED GLUCOSE; Start 07/13/18 at 23:30 Glucagon (Glucagen) 1 mg Q15M PRN IM DECREASED GLUCOSE; Start 07/13/18 at 23:30 Glucose (Glutose) 15 gm Q15M PRN BUCCAL DECREASED GLUCOSE; Start 07/13/18 at 23:30 Ondansetron HCl (Zofran Inj) 4 mg Q4H PRN IV NAUSEA AND/OR VOMITING Last administered on 07/23/18at 16:30; Admin Dose 4 MG; Start 07/14/18 at 00:30 Miscellaneous Information (Pending Santyl Order For Wound Care) This patient easley... PRN PRN XX WOUND CARE; Start 07/14/18 at 04:30 Heparin Sodium (Porcine) (Heparin (1000 Units/ml)) 4,000 unit AFTER DIALYSIS CATHETER Last administered on 07/27/18at 20:16; Admin Dose 4,000 UNIT; Start 07/17/18 at 12:30 Diagnostic Test (Pha) (Accu-Chek) 1 ea 02 XX Last administered on 08/05/18at 01:22; Admin Dose 1 EA; Start 07/19/18 at 02:00 IV Flush (NS 3 ml) 3 ml PER PROTOCOL IV ; Start 07/20/18 at 11:30 Calcium/Vitamin D (Oyster Shell/ Vit-D (500/200)) 1 tab BID PO Last administered on 08/05/18at 09:24; Admin Dose 1 TAB; Start 07/20/18 at 21:00 Metoprolol Tartrate (Lopressor) 5 mg Q4H PRN IV HR > 110; Hold if SBP < 100 Last administered on 07/21/18at 01:52; Admin Dose 5 MG; Start 07/21/18 at 02:00 Norepinephrine 250 ml @ 1.875 mls/ hr TITRATE IV Last administered on 07/29/18 01:20; Admin Dose 3.75 MLS/HR; Start 07/24/18 at 11:00 Collagenase (Santyl) 1 applic DAILY TOP Last administered on 08/04/18 21:24; Admin Dose 1 APPLIC; Start 07/25/18 at 09:00 Phenylephrine HCl 80 mg/Dextrose 250 ml @ 18.75 mls/ hr TITRATE IV Last administered on 08/05/18 12:31; Admin Dose 18.75 MLS/HR; Start 07/24/18 at 20:30 Insulin Aspart (Novolog Insulin Pen) NOVOLOG *MILD* ALGORI... Q4 SC Last administered on 08/05/18 16:56; Admin Dose 4 UNIT; Start 07/24/18 at 21:00 Propofol 100 ml @ 1.851 mls/ hr Q12H IV Last administered on 07/28/18 20:30; Admin Dose 5.553 MLS/HR; Start 07/25/18 at 13:00 Fentanyl 100 ml @ 2.5 mls/hr TITRATE IV Last administered on 08/05/18 03:35; Admin Dose 5 MLS/HR; Start 07/26/18 at 11:00 Vancomycin HCl (Vanco Iv Per Pharmacy) VANCOMYCIN PER PHARMACY PER PROTOCOL XX ; Start 07/28/18 at 10:30 Cefepime HCl 50 ml @ 100 mls/hr Q24H IVPB Last administered on 08/05/18 12:24; Admin Dose 100 MLS/HR; Start 07/30/18 at 12:00 Lansoprazole (Prevacid) 30 mg BID@0600,1800 PO Last administered on 08/05/18 16:54; Admin Dose 30 MG; Start 07/30/18 at 18:00 Aspirin (Aspirin) 81 mg DAILY PO Last administered on 08/05/18 09:24; Admin Dose 81 MG; Start 07/30/18 at 11:30 Atorvastatin Calcium (Lipitor) 20 mg HS PO Last administered on 08/04/18 21:15; Admin Dose 20 MG; Start 07/30/18 at 21:00 Midodrine (Proamatine) 10 mg TID@,,17 PO Last administered on 08/05/18 16:53; Admin Dose 10 MG; Start 07/30/18 at 13:00 Insulin Glargine (Lantus) 15 units DAILY@0800 SC Last administered on 08/05/18 09:28; Admin Dose 15 UNITS; Start 07/31/18 at 09:00 Midazolam HCl 50 ml @ 1 mls/hr TITRATE IV Last administered on 08/03/18 14:52; Admin Dose 1 MLS/HR; Start 08/02/18 at 10:00 Epoetin Derick (Epogen (Esrd)) 3,000 units TuThSa@17 SC Last administered on 08/03/18 17:05; Admin Dose 3,000 UNITS; Start 08/03/18 at 17:00 Levothyroxine Sodium (Synthroid) 100 mcg DAILY@06 PO Last administered on 08/05/18 05:58; Admin Dose 100 MCG; Start 08/03/18 at 06:00 Hydrocortisone (Solu-Cortef) 100 mg TID IV Last administered on 08/05/18 12:24; Admin Dose 100 MG; Start 08/04/18 at 13:00 Vancomycin HCl 250 ml @ 125 mls/hr Q96H IVPB Last administered on 08/04/18 12:21; Admin Dose 125 MLS/HR; Start 08/04/18 at 12:00 Metoclopramide HCl (Reglan) 5 mg Q6H PRN IV NAUSEA AND/OR VOMITING; Start 08/05/18 at 10:49 Assessment/Plan Hospital Course (Demo Recall) NEUROLOGIC exam: The patient keeps her eyes closed No response to voice or command. No response to visual threat. Pupils: Right-sided about 2 mm, sluggi shly borderline reactive to light, opacified left pupil. Extraocular movements are intact on oculocephalic maneuver. No spontaneous movements. Corneal reflexes are present bilaterally. Gag is present. Flaccid extremities. No withdrawal to pain. Deep tendon reflexes are 2+ upper extremities, absent knee jerks. No resting tremor observed. IMPRESSION: Severe encephalopathy in a 78-year-old lady with multiple medical problems, currently shock with hypotension, respiratory failure, status post several episodes of cardiopulmonary arrest on 07/24/2018, also renal insufficiency, electrolyte imbalance. Repeated CAT scan shows presence of new cerebellar infarcts but no mass effect. Most likely strokes were related to anoxia and hypotension during cardiac arrest Continue antiplatelet therapy. Try to keep her normotensive and euglycemic. Her encephalopathy is multifactorial - postanoxic, also related to CVA as well toxic metabolic encephalopathy related to ongoing medical problems. She has very poor prognosis for functional recovery. D/w family at bedside MELLO MCKEON MD Aug 05, 2018 20:45
[2018-08-06] VITALS (96 sets, daily range): BP systolic 86–141; BP diastolic 23–104; PULSE 68–109; RESP 13–37
[2018-08-06] MEDS: PROPOFOL 100 ML IV SCH ×2 (01:00→20:39)
[2018-08-06] MEDS: ACCU-CHEK XX SCH (01:01)
[2018-08-06] MEDS: INSULIN ASPART [NOVOLOG] 3 ML PEN SC SCH ×6 (01:10→21:40)
[2018-08-06] MEDS: PHENYLephrine 80 MG in DEXTROSE 5% 242 ML IV SCH (04:35)
[2018-08-06] MEDS: LANSOPRAZOLE 30 MG CAP PO SCH ×2 (05:21→16:31)
[2018-08-06] MEDS: LEVOTHYROXINE 100 MCG TAB PO SCH (05:21)
--- NOTE | 2018-08-06 07:34 | CONS ---
Assessment/Plan Assessment/Plan Hospital Course (Demo Recall) 78 yo female presented in cardiac arrest with prolonged ACLS Interval hx: Overnight pt continues to have tube feeds from mouth and nose when laid flat. No residuals noted. No coughing or gagging noted. Residuals this am are 10 cc of tube feeds. The content coming from her mouth when laid flat is pale beige, slightly tinged brown. She is only on phenylephrine gtt now. WBC are trending up. hgb 9.0. Neurology feels pt has a poor prognosis and discussed with family. Dr. Duarte will have family meeting today. 1. Anemia, rule out gastrointestinal bleeding. -concern for GI bleed due to drop in H/H prior to cardiac arrest. -per RN bm was brown with potentially old melena, no active bleeding -FOB positive 2. Status post pulseless electrical activity period and cardiac arrest. 3. Ventilator-dependent respiratory failure. 4. End-stage renal disease, on dialysis. 5. 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 6. left aka 7. Ankle fracture. 8. Cirrhosis of liver 9. Gastroparesis 10. Multiple decubitus ulcers on buttocks and coccyx. 11. Enterococcus in urine Plan: Family meeting today. Please let us know if patient will need PEG Aspiration precautions Full code Monitor HH and replace as necessary. Patient is unstable for any endoscopy procedures and there is no active GI bleeding at this point Pt examined and plan of care discussed with Dr. Hoskins Consultation Date/Type/Reason Admit Date/Time Jul 13, 2018 at 21:32 Initial Consult Date Requesting Provider: ADAM DUARTE MD Date/Time of Note DATE: 08/06/18 TIME: 07:24 Exam/Review of Systems Exam Vitals Vital Signs Date Temp Pulse Resp B/P (MAP) Pulse Ox O2 O2 Flow FiO2 Time Delivery Rate 08/06/18 89 21 126/41 96 Mechanical 07:00 (69) Ventilator 08/06/18 30 05:09 08/06/18 97.5 04:00 Intake and Output 08/05/18 08/05/18 08/06/18 1515:00 23:00 07:00 IntakeIntake Total 298.26 ml 422.48 ml 317.48 ml OutputOutput Total 0 ml 35 ml 0 ml BalanceBalance 298.26 ml 387.48 ml 317.48 ml ENMT: intubated Respiratory: clear to auscultation, diminished breath sounds (at bases) Cardiovascular: regular rate and rhythm Gastrointestinal: soft, non-tender, bowel sounds Extremities: other (left aka) Neurological: unresponsive Results Result Diagram: 08/06/18 0400 08/06/18 0400 Results 24hrs Laboratory Tests Test 08/05/18 09:21 08/05/18 12:23 08/05/18 16:52 08/05/18 20:41 Bedside Glucose 293 H 303 H 272 H 210 Test 08/06/18 01:07 08/06/18 04:00 08/06/18 05:20 Bedside Glucose 255 H 231 H White Blood Count 18.3 H Red Blood Count 2.79 L Hemoglobin 9.0 L Hematocrit 26.8 L Mean Corpuscular 96.1 Volume Mean Corpuscular 32.3 Hemoglobin Mean Corpuscular 33.6 Hemoglobin Concent Red Cell 23.4 H Distribution Width Platelet Count 222 # Mean Platelet Volume 12.5 H Immature 0.900 H Granulocytes % Neutrophils % 91.2 H Lymphocytes % 3.5 L Monocytes % 4.2 Eosinophils % 0.0 Basophils % 0.2 Nucleated Red Blood 0.9 H Cells % Immature 0.160 H Granulocytes # Neutrophils # 16.7 H Lymphocytes # 0.6 L Monocytes # 0.8 Eosinophils # 0.0 Basophils # 0.0 Nucleated Red Blood 0.2 H Cells # Sodium Level 129 L Potassium Level 3.6 Chloride Level 93 L Carbon Dioxide Level 25 Anion Gap 11 Blood Urea Nitrogen 42 H Creatinine 2.30 H Est Glomerular Filtrat Rate mL/min Glucose Level 215 Calcium Level 7.6 L Phosphorus Level 2.8 Magnesium Level 1.9 Medications Medication Current Medications Multivit/Ca Carb/ B Cmplx/FA/Prenat (Shyann-Raj) 1 tab DAILY PO Last administered on 08/05/18at 09:24; Admin Dose 1 TAB; Start 07/14/18 at 09:00 Tramadol HCl (Ultram) 50 mg TID PRN PO PAIN LEVEL 6-10 Last administered on 07/24/18at 03:35; Admin Dose 50 MG; Start 07/13/18 at 23:30 Acetaminophen (Tylenol Tab) 650 mg Q6H PRN PO MILD PAIN(1-3)OR ELEVATED TEMP; Start 07/13/18 at 23:30 Hydralazine HCl (Apresoline) 20 mg Q6H PRN IV sbp over 170 Last administered on 07/14/18at 11:56; Admin Dose 20 MG; Start 07/13/18 at 23:30 Miscellaneous Information 1 ea NOTE XX ; Start 07/13/18 at 23:30 Glucose (Glutose) 15 gm Q15M PRN PO DECREASED GLUCOSE; Start 07/13/18 at 23:30 Glucose (Glutose) 22.5 gm Q15M PRN PO DECREASED GLUCOSE; Start 07/13/18 at 23:30 Dextrose (D50w Syringe) 25 ml Q15M PRN IV DECREASED GLUCOSE Last administered on 07/24/18at 08:19; Admin Dose 25 ML; Start 07/13/18 at 23:30 Dextrose (D50w Syringe) 50 ml Q15M PRN IV DECREASED GLUCOSE; Start 07/13/18 at 23:30 Glucagon (Glucagen) 1 mg Q15M PRN IM DECREASED GLUCOSE; Start 07/13/18 at 23:30 Glucose (Glutose) 15 gm Q15M PRN BUCCAL DECREASED GLUCOSE; Start 07/13/18 at 23:30 Ondansetron HCl (Zofran Inj) 4 mg Q4H PRN IV NAUSEA AND/OR VOMITING Last admini stered on 07/23/18at 16:30; Admin Dose 4 MG; Start 07/14/18 at 00:30 Miscellaneous Information ([facility]) This patient easley... PRN PRN XX WOUND CARE; Start 07/14/18 at 04:30 Heparin Sodium (Porcine) (Heparin (1000 Units/ml)) 4,000 unit AFTER DIALYSIS CATHETER Last administered on 07/27/18at 20:16; Admin Dose 4,000 UNIT; Start 07/17/18 at 12:30 Diagnostic Test (Pha) (Accu-Chek) 1 ea 02 XX Last administered on 08/05/18at 01:22; Admin Dose 1 EA; Start 07/19/18 at 02:00 IV Flush (NS 3 ml) 3 ml PER PROTOCOL IV ; Start 07/20/18 at 11:30 Calcium/Vitamin D (Oyster Shell/ Vit-D (500/200)) 1 tab BID PO Last administered on 08/05/18at 20:43; Admin Dose 1 TAB; Start 07/20/18 at 21:00 Metoprolol Tartrate (Lopressor) 5 mg Q4H PRN IV HR > 110; Hold if SBP < 100 Last administered on 07/21/18 01:52; Admin Dose 5 MG; Start 07/21/18 at 02:00 Norepinephrine 250 ml @ 1.875 mls/ hr TITRATE IV Last administered on 07/29/18 01:20; Admin Dose 3.75 MLS/HR; Start 07/24/18 at 11:00 Collagenase (Santyl) 1 applic DAILY TOP Last administered on 08/04/18 21:24; Admin Dose 1 APPLIC; Start 07/25/18 at 09:00 Phenylephrine HCl 80 mg/Dextrose 250 ml @ 18.75 mls/ hr TITRATE IV Last administered on 08/06/18 04:35; Admin Dose 14.06 MLS/HR; Start 07/24/18 at 20:30 Insulin Aspart (Novolog Insulin Pen) NOVOLOG *MILD* ALGORI... Q4 SC Last administered on 08/06/18 05:26; Admin Dose 3 UNIT; Start 07/24/18 at 21:00 Propofol 100 ml @ 1.851 mls/ hr Q12H IV Last administered on 07/28/18 20:30; Admin Dose 5.553 MLS/HR; Start 07/25/18 at 13:00 Fentanyl 100 ml @ 2.5 mls/hr TITRATE IV Last administered on 08/05/18 03:35; Admin Dose 5 MLS/HR; Start 07/26/18 at 11:00 Vancomycin HCl (Vanco Iv Per Pharmacy) VANCOMYCIN PER PHARMACY PER PROTOCOL XX ; Start 07/28/18 at 10:30 Cefepime HCl 50 ml @ 100 mls/hr Q24H IVPB Last administered on 08/05/18 12:24; Admin Dose 100 MLS/HR; Start 07/30/18 at 12:00 Lansoprazole (Prevacid) 30 mg BID@0600,1800 PO Last administered on 08/06/18 05:21; Admin Dose 30 MG; Start 07/30/18 at 18:00 Aspirin (Aspirin) 81 mg DAILY PO Last administered on 08/05/18 09:24; Admin Dose 81 MG; Start 07/30/18 at 11:30 Atorvastatin Calcium (Lipitor) 20 mg HS PO Last administered on 08/05/18 20:43; Admin Dose 20 MG; Start 07/30/18 at 21:00 Midodrine (Proamatine) 10 mg TID@09,13,17 PO Last administered on 08/05/18 16:53; Admin Dose 10 MG; Start 07/30/18 at 13:00 Insulin Glargine (Lantus) 15 units DAILY@0800 SC Last administered on 08/05/18 09:28; Admin Dose 15 UNITS; Start 07/31/18 at 09:00 Midazolam HCl 50 ml @ 1 mls/hr TITRATE IV Last administered on 08/03/18 14:52; Admin Dose 1 MLS/HR; Start 08/02/18 at 10:00 Epoetin Derick (Epogen (Esrd)) 3,000 units TuThSa@17 SC Last administered on 08/03/18 17:05; Admin Dose 3,000 UNITS; Start 08/03/18 at 17:00 Levothyroxine Sodium (Synthroid) 100 mcg DAILY@06 PO Last administered on 08/06/18 05:21; Admin Dose 100 MCG; Start 08/03/18 at 06:00 Hydrocortisone (Solu-Cortef) 100 mg TID IV Last administered on 08/05/18 20:43; Admin Dose 100 MG; Start 08/04/18 at 13:00 Vancomycin HCl 250 ml @ 125 mls/hr Q96H IVPB Last administered on 08/04/18 12:21; Admin Dose 125 MLS/HR; Start 08/04/18 at 12:00 Metoclopramide HCl (Reglan) 5 mg Q6H PRN IV NAUSEA AND/OR VOMITING; Start 08/05/18 at 10:49 PATRICIA ALLEN Aug 06, 2018 07:34
[2018-08-06] MEDS: HYDROCORTISONE 100 MG INJ IV SCH ×3 (08:06→21:36)
[2018-08-06] MEDS: MULTIVIT/CA CARB/B CMPLX/FA TAB PO SCH (08:06)
[2018-08-06] MEDS: COLLAGENASE 5 GM (UD JAR) TOP SCH (08:06)
[2018-08-06] MEDS: CALCIUM/VITAMIN D (500/200) TAB PO SCH ×2 (08:06→21:36)
[2018-08-06] MEDS: ASPIRIN 81 MG TAB PO SCH (08:06)
[2018-08-06] MEDS: MIDODRINE 5 MG TAB PO SCH ×3 (08:06→16:32)
[2018-08-06] MEDS: BALSAM PERU/CASTOR OIL 60 GM TUBE TOP SCH ×2 (08:07→21:36)
[2018-08-06] MEDS: INSULIN GLARGINE [LANTus] (100 UNITS/ML) SYG SC SCH (08:13)
--- NOTE | 2018-08-06 08:50 | CONS ---
Consult Date/Type/Reason Admit Date/Time Jul 13, 2018 at 21:32 Initial Consult Date Type of Consultation: neuro Requesting Provider: ADAM DUARTE MD Date/Time of Note DATE: 08/06/18 TIME: 08:46 Subjective No acute evens - pt stable - intubated - no active CP noted in a. fib - overall rate controlled. ROS: (per nurse) no vomiting, no diarrhea/constipation No recent weight changes No chest pain, no PND, no orthopnea + SOB No dizziness, blurred vision No thirst, no heat or cold intolerance Objective Vitals Vital Signs Date Temp Pulse Resp B/P (MAP) Pulse Ox O2 O2 Flow FiO2 Time Delivery Rate 08/06/18 30 08:00 08/06/18 89 21 126/41 96 Mechanical 07:00 (69) Ventilator 08/06/18 97.5 04:00 Intake and Output 08/05/18 08/05/18 08/06/18 1515:00 23:00 07:00 IntakeIntake Total 298.26 ml 422.48 ml 317.48 ml OutputOutput Total 0 ml 35 ml 0 ml BalanceBalance 298.26 ml 387.48 ml 317.48 ml Results/Medications Result Diagram: 08/06/18 0400 08/06/18 0400 Results 24 hrs Laboratory Tests Test 08/05/18 09:21 08/05/18 12:23 08/05/18 16:52 08/05/18 20:41 Bedside Glucose 293 H 303 H 272 H 210 Test 08/06/18 01:07 08/06/18 04:00 08/06/18 05:20 08/06/18 08:11 Bedside Glucose 255 H 231 H 211 White Blood Count 18.3 H Red Blood Count 2.79 L Hemoglobin 9.0 L Hematocrit 26.8 L Mean Corpuscular 96.1 Volume Mean Corpuscular 32.3 Hemoglobin Mean Corpuscular 33.6 Hemoglobin Concent Red Cell 23.4 H Distribution Width Platelet Count 222 # Mean Platelet Volume 12.5 H Immature 0.900 H Granulocytes % Neutrophils % 91.2 H Lymphocytes % 3.5 L Monocytes % 4.2 Eosinophils % 0.0 Basophils % 0.2 Nucleated Red Blood 0.9 H Cells % Immature 0.160 H Granulocytes # Neutrophils # 16.7 H Lymphocytes # 0.6 L Monocytes # 0.8 Eosinophils # 0.0 Basophils # 0.0 Nucleated Red Blood 0.2 H Cells # Sodium Level 129 L Potassium Level 3.6 Chloride Level 93 L Carbon Dioxide Level 25 Anion Gap 11 Blood Urea Nitrogen 42 H Creatinine 2.30 H Est Glomerular Filtrat Rate mL/min Glucose Level 215 Calcium Level 7.6 L Phosphorus Level 2.8 Magnesium Level 1.9 Home Meds Reported Medications Atorvastatin* (Atorvastatin*) 40 Mg Tablet, 40 MG PO QHS, #30 TAB 07/13/18 Carvedilol* (Carvedilol*) 3.125 Mg Tablet, 3.125 MG PO BID, #60 TAB 07/13/18 Tramadol HCl (Tramadol HCl) 50 Mg Tablet, 50 MG PO TID PRN for PAIN LEVEL 6-10, #90 TAB 07/13/18 Multivit/Ca Carb/B Cmplx/Fa* (Shyann-Raj*) 1 Tab Tab, 1 TAB PO DAILY, TAB 07/13/18 Isosorbide Mononitrate* (Isosorbide Mononitrate*) 60 Mg Tab.er.24h, 60 MG PO DAILY, TAB 07/13/18 Pantoprazole* (Protonix*) 20 Mg Tablet.dr, 20 MG PO DAILY, TAB 07/13/18 Clonidine Hcl* (Clonidine Hcl*) 0.1 Mg Tab, 0.1 MG PO BID, TAB 07/13/18 Aspirin (Aspir-Low) 81 Mg Tablet.dr, 81 MG PO DAILY 07/13/18 Medications Current Medications Multivit/Ca Carb/ B Cmplx/FA/Prenat (Shyann-Raj) 1 tab DAILY PO Last administered on 08/06/18at 08:06; Admin Dose 1 TAB; Start 07/14/18 at 09:00 Tramadol HCl (Ultram) 50 mg TID PRN PO PAIN LEVEL 6-10 Last administered on 07/24/18at 03:35; Admin Dose 50 MG; Start 07/13/18 at 23:30 Acetaminophen (Tylenol Tab) 650 mg Q6H PRN PO MILD PAIN(1-3)OR ELEVATED TEMP; Start 07/13/18 at 23:30 Hydralazine HCl (Apresoline) 20 mg Q6H PRN IV sbp over 170 Last administered on 07/14/18at 11:56; Admin Dose 20 MG; Start 07/13/18 at 23:30 Miscellaneous Information 1 ea NOTE XX ; Start 07/13/18 at 23:30 Glucose (Glutose) 15 gm Q15M PRN PO DECREASED GLUCOSE; Start 07/13/18 at 23:30 Glucose (Glutose) 22.5 gm Q15M PRN PO DECREASED GLUCOSE; Start 07/13/18 at 23:30 Dextrose (D50w Syringe) 25 ml Q15M PRN IV DECREASED GLUCOSE Last administered on 07/24/18at 08:19; Admin Dose 25 ML; Start 07/13/18 at 23:30 Dextrose (D50w Syringe) 50 ml Q15M PRN IV DECREASED GLUCOSE; Start 07/13/18 at 23:30 Glucagon (Glucagen) 1 mg Q15M PRN IM DECREASED GLUCOSE; Start 07/13/18 at 23:30 Glucose (Glutose) 15 gm Q15M PRN BUCCAL DECREASED GLUCOSE; Start 07/13/18 at 23:30 Ondansetron HCl (Zofran Inj) 4 mg Q4H PRN IV NAUSEA AND/OR VOMITING Last administered on 07/23/18at 16:30; Admin Dose 4 MG; Start 07/14/18 at 00:30 Miscellaneous Information (Pending [facility] Order For Wound Care) This patient easley... PRN PRN XX WOUND CARE; Start 07/14/18 at 04:30 Heparin Sodium (Porcine) (Heparin (1000 Units/ml)) 4,000 unit AFTER DIALYSIS C ATHETER Last administered on 07/27/18at 20:16; Admin Dose 4,000 UNIT; Start 07/17/18 at 12:30 Diagnostic Test (Pha) (Accu-Chek) 1 ea 02 XX Last administered on 08/05/18at 01:22; Admin Dose 1 EA; Start 07/19/18 at 02:00 IV Flush (NS 3 ml) 3 ml PER PROTOCOL IV ; Start 07/20/18 at 11:30 Calcium/Vitamin D (Oyster Shell/ Vit-D (500/200)) 1 tab BID PO Last administered on 08/06/18at 08:06; Admin Dose 1 TAB; Start 07/20/18 at 21:00 Metoprolol Tartrate (Lopressor) 5 mg Q4H PRN IV HR > 110; Hold if SBP < 100 Last administered on 07/21/18 01:52; Admin Dose 5 MG; Start 07/21/18 at 02:00 Norepinephrine 250 ml @ 1.875 mls/ hr TITRATE IV Last administered on 07/29/18 01:20; Admin Dose 3.75 MLS/HR; Start 07/24/18 at 11:00 Collagenase (Santyl) 1 applic DAILY TOP Last administered on 08/06/18 08:06; Admin Dose 1 APPLIC; Start 07/25/18 at 09:00 Phenylephrine HCl 80 mg/Dextrose 250 ml @ 18.75 mls/ hr TITRATE IV Last administered on 08/06/18 04:35; Admin Dose 14.06 MLS/HR; Start 07/24/18 at 20:30 Insulin Aspart (Novolog Insulin Pen) NOVOLOG *MILD* ALGORI... Q4 SC Last administered on 08/06/18 08:16; Admin Dose 2 UNIT; Start 07/24/18 at 21:00 Propofol 100 ml @ 1.851 mls/ hr Q12H IV Last administered on 07/28/18 20:30; Admin Dose 5.553 MLS/HR; Start 07/25/18 at 13:00 Fentanyl 100 ml @ 2.5 mls/hr TITRATE IV Last administered on 08/05/18 03:35; Admin Dose 5 MLS/HR; Start 07/26/18 at 11:00 Vancomycin HCl (Vanco Iv Per Pharmacy) VANCOMYCIN PER PHARMACY PER PROTOCOL XX ; Start 07/28/18 at 10:30 Cefepime HCl 50 ml @ 100 mls/hr Q24H IVPB Last administered on 08/05/18 12:24; Admin Dose 100 MLS/HR; Start 07/30/18 at 12:00 Lansoprazole (Prevacid) 30 mg BID@0600,1800 PO Last administered on 08/06/18 05:21; Admin Dose 30 MG; Start 07/30/18 at 18:00 Aspirin (Aspirin) 81 mg DAILY PO Last administered on 08/06/18 08:06; Admin Dose 81 MG; Start 07/30/18 at 11:30 Atorvastatin Calcium (Lipitor) 20 mg HS PO Last administered on 08/05/18 20:43; Admin Dose 20 MG; Start 07/30/18 at 21:00 Midodrine (Proamatine) 10 mg TID@09,13,17 PO Last administered on 08/06/18 08:06; Admin Dose 10 MG; Start 07/30/18 at 13:00 Insulin Glargine (Lantus) 15 units DAILY@0800 SC Last administered on 08/06/18 08:13; Admin Dose 15 UNITS; Start 07/31/18 at 09:00 Midazolam HCl 50 ml @ 1 mls/hr TITRATE IV Last administered on 08/03/18at 14:52; Admin Dose 1 MLS/HR; Start 08/02/18 at 10:00 Epoetin Derick (Epogen (Esrd)) 3,000 units TuThSa@17 SC Last administered on 08/03/18 17:05; Admin Dose 3,000 UNITS; Start 08/03/18 at 17:00 Levothyroxine Sodium (Synthroid) 100 mcg DAILY@06 PO Last administered on 08/06/18 05:21; Admin Dose 100 MCG; Start 08/03/18 at 06:00 Hydrocortisone (Solu-Cortef) 100 mg TID IV Last administered on 08/06/18 08:06; Admin Dose 100 MG; Start 08/04/18 at 13:00 Vancomycin HCl 250 ml @ 125 mls/hr Q96H IVPB Last administered on 08/04/18 12:21; Admin Dose 125 MLS/HR; Start 08/04/18 at 12:00 Metoclopramide HCl (Reglan) 5 mg Q6H PRN IV NAUSEA AND/OR VOMITING; Start 07/13 10/27 at 10:49 Assessment/Plan Hospital Course (Demo Recall) 1. Preoperative for LE ORIF-NL EF by echo with mod-sev TR. Lexiscan with NL EF and partially reversible inferior wall defect. Thus patient has no cardiac contraindication to proceeding to OR on current medications but at moderate to high risk. Now post-op s/p ORIF - stable - ortho follws 2.Positive troponin - no intervention planned now. 3.BRadycardia to 40's/stable BP. S Misael- now improved with decrease in dose of clonidine and having short runs of tachycardia/SVT- now in AF rate controlled s/p code yesterday 4.HTN-uncontrolled at this time 5.Ankle fracture - defer to ortho. 6.ESRD on HD, rx per renal team. 7. TR-mod-sev 8. ? sick euthyroid-elevated TSH and Free t4 9. Patient with PEA and VFA this am requiring ACLS and intubation protocol on onset during HD - no signs of improvement. 10. anemia-acute drop. ? where bleeding,internal given abd pain. Now s/p transfusion PRBC's/possible melena overnight - anti-coag held. 11.PAF- in AF at this time. Reasonable rates on amiodarone 12. Nstemi- downtrending cardiac enzymes significantly 14. hypotension-on summer- s/p repeat echo 07/29 with EF slightly lower but still wnl 50% 15. AMY HEALY MD Aug 06, 2018 08:50
--- NOTE | 2018-08-06 11:28 | CONS ---
Consult Date/Type/Reason Admit Date/Time Jul 13, 2018 at 21:32 Initial Consult Date Type of Consult Pulmonary Requesting Provider: ADAM DUARTE MD Date/Time of Note DATE: 08/06/18 TIME: 11:26 Subjective Remains unresponsive on mechanical ventilation. Sedation has been held. Continues vasopressors. Tube feeding as tolerated. Objective Vital Signs Date Temp Pulse Resp B/P (MAP) Pulse Ox O2 O2 Flow FiO2 Time Delivery Rate 08/06/18 86 11:15 08/06/18 24 116/35 95 Mechanical 10:30 (62) Ventilator 08/06/18 30 08:00 08/06/18 97.6 08:00 Intake and Output 08/05/18 08/05/18 08/06/18 1515:00 23:00 07:00 IntakeIntake Total 298.26 ml 422.48 ml 317.48 ml OutputOutput Total 0 ml 35 ml 0 ml BalanceBalance 298.26 ml 387.48 ml 317.48 ml Exam PHYSICAL EXAMINATION: GENERAL: Elderly-appearing lady, opens eyes to voice, talking in full and complete sentences VITAL SIGNS: NECK: Supple. No JVD or lymphadenopathy. CARDIAC: S1, S2, no added sounds or murmurs. CHEST: Diminished air entry bilaterally with rales. ABDOMEN: Soft, nontender. No guarding or rebound. EXTREMITIES: No cyanosis, clubbing or edema. NEUROLOGIC: Generalized weakness. Vent Setting Ventilator Support Mode: AC Fraction of Inspired Oxygen pe: 30 Positive End Expiratory Pressu: 5.0 Results/Medications Result Diagram: 08/06/18 0400 08/06/18 0400 Results 24 hrs Laboratory Tests Test 08/05/18 12:23 08/05/18 16:52 08/05/18 20:41 08/06/18 01:07 Bedside Glucose 303 H 272 H 210 255 H Test 08/06/18 04:00 08/06/18 05:20 08/06/18 08:11 White Blood Count 18.3 H Red Blood Count 2.79 L Hemoglobin 9.0 L Hematocrit 26.8 L Mean Corpuscular 96.1 Volume Mean Corpuscular 32.3 Hemoglobin Mean Corpuscular 33.6 Hemoglobin Concent Red Cell 23.4 H Distribution Width Platelet Count 222 # Mean Platelet Volume 12.5 H Immature 0.900 H Granulocytes % Neutrophils % 91.2 H Lymphocytes % 3.5 L Monocytes % 4.2 Eosinophils % 0.0 Basophils % 0.2 Nucleated Red Blood 0.9 H Cells % Immature 0.160 H Granulocytes # Neutrophils # 16.7 H Lymphocytes # 0.6 L Monocytes # 0.8 Eosinophils # 0.0 Basophils # 0.0 Nucleated Red Blood 0.2 H Cells # Sodium Level 129 L Potassium Level 3.6 Chloride Level 93 L Carbon Dioxide Level 25 Anion Gap 11 Blood Urea Nitrogen 42 H Creatinine 2.30 H Est Glomerular Filtrat Rate mL/min Glucose Level 215 Calcium Level 7.6 L Phosphorus Level 2.8 Magnesium Level 1.9 Bedside Glucose 231 H 211 Medications Current Medications Multivit/Ca Carb/ B Cmplx/FA/Prenat (Shyann-Raj) 1 tab DAILY PO Last administered on 08/06/18at 08:06; Admin Dose 1 TAB; Start 07/14/18 at 09:00 Tramadol HCl (Ultram) 50 mg TID PRN PO PAIN LEVEL 6-10 Last administered on 07/24/18at 03:35; Admin Dose 50 MG; Start 07/13/18 at 23:30 Acetaminophen (Tylenol Tab) 650 mg Q6H PRN PO MILD PAIN(1-3)OR ELEVATED TEMP; Start 07/13/18 at 23:30 Hydralazine HCl (Apresoline) 20 mg Q6H PRN IV sbp over 170 Last administered on 07/14/18at 11:56; Admin Dose 20 MG; Start 07/13/18 at 23:30 Miscellaneous Information 1 ea NOTE XX ; Start 07/13/18 at 23:30 Glucose (Glutose) 15 gm Q15M PRN PO DECREASED GLUCOSE; Start 07/13/18 at 23:30 Glucose (Glutose) 22.5 gm Q15M PRN PO DECREASED GLUCOSE; Start 07/13/18 at 23:30 Dextrose (D50w Syringe) 25 ml Q15M PRN IV DECREASED GLUCOSE Last administered on 07/24/18at 08:19; Admin Dose 25 ML; Start 07/13/18 at 23:30 Dextrose (D50w Syringe) 50 ml Q15M PRN IV DECREASED GLUCOSE; Start 07/13/18 at 23:30 Glucagon (Glucagen) 1 mg Q15M PRN IM DECREASED GLUCOSE; Start 07/13/18 at 23:30 Glucose (Glutose) 15 gm Q15M PRN BUCCAL DECREASED GLUCOSE; Start 07/13/18 at 23:30 Ondansetron HCl (Zofran Inj) 4 mg Q4H PRN IV NAUSEA AND/OR VOMITING Last administered on 07/23/18 16:30; Admin Dose 4 MG; Start 07/14/18 at 00:30 Miscellaneous Information (Pending Santyl Order For Wound Care) This patient easley... PRN PRN XX WOUND CARE; Start 07/14/18 at 04:30 Heparin Sodium (Porcine) (Heparin (1000 Units/ml)) 4,000 unit AFTER DIALYSIS CATHETER Last administered on 07/27/18 20:16; Admin Dose 4,000 UNIT; Start 07/17/18 at 12:30 Diagnostic Test (Pha) (Accu-Chek) 1 ea 02 XX Last administered on 08/05/18 01:22; Admin Dose 1 EA; Start 07/19/18 at 02:00 IV Flush (NS 3 ml) 3 ml PER PROTOCOL IV ; Start 07/20/18 at 11:30 Calcium/Vitamin D (Oyster Shell/ Vit-D (500/200)) 1 tab BID PO Last administered on 08/06/18 08:06; Admin Dose 1 TAB; Start 07/20/18 at 21:00 Metoprolol Tartrate (Lopressor) 5 mg Q4H PRN IV HR > 110; Hold if SBP < 100 Last administered on 07/21/18 01:52; Admin Dose 5 MG; Start 07/21/18 at 02:00 Norepinephrine 250 ml @ 1.875 mls/ hr TITRATE IV Last administered on 07/29/18 01:20; Admin Dose 3.75 MLS/HR; Start 07/24/18 at 11:00 Collagenase (Santyl) 1 applic DAILY TOP Last administered on 08/06/18 08:06; Admin Dose 1 APPLIC; Start 07/25/18 at 09:00 Phenylephrine HCl 80 mg/Dextrose 250 ml @ 18.75 mls/ hr TITRATE IV Last administered on 08/06/18 04:35; Admin Dose 14.06 MLS/HR; Start 07/24/18 at 20:30 Insulin Aspart (Novolog Insulin Pen) NOVOLOG *MILD* ALGORI... Q4 SC Last administered on 08/06/18 08:16; Admin Dose 2 UNIT; Start 07/24/18 at 21:00 Propofol 100 ml @ 1.851 mls/ hr Q12H IV Last administered on 07/28/18 20:30; Admin Dose 5.553 MLS/HR; Start 07/25/18 at 13:00 Fentanyl 100 ml @ 2.5 mls/hr TITRATE IV Last administered on 08/05/18 03:35; Admin Dose 5 MLS/HR; Start 07/26/18 at 11:00 Vancomycin HCl (Vanco Iv Per Pharmacy) VANCOMYCIN PER PHARMACY PER PROTOCOL XX ; Start 07/28/18 at 10:30 Cefepime HCl 50 ml @ 100 mls/hr Q24H IVPB Last administered on 08/05/18 12:24; Admin Dose 100 MLS/HR; Start 07/30/18 at 12:00 Lansoprazole (Prevacid) 30 mg BID@0600,1800 PO Last administered on 08/06/18 05:21; Admin Dose 30 MG; Start 07/30/18 at 18:00 Aspirin (Aspirin) 81 mg DAILY PO Last administered on 08/06/18 08:06; Admin Dose 81 MG; Start 07/30/18 at 11:30 Atorvastatin Calcium (Lipitor) 20 mg HS PO Last administered on 08/05/18 20:43; Admin Dose 20 MG; Start 07/30/18 at 21:00 Midodrine (Proamatine) 10 mg TID@09,13,17 PO Last administered on 08/06/18 08:06; Admin Dose 10 MG; Start 07/30/18 at 13:00 Insulin Glargine (Lantus) 15 units DAILY@0800 SC Last administered on 08/06/18 08:13; Admin Dose 15 UNITS; Start 07/31/18 at 09:00 Midazolam HCl 50 ml @ 1 mls/hr TITRATE IV Last administered on 08/03/18 14:52; Admin Dose 1 MLS/HR; Start 08/02/18 at 10:00 Epoetin Derick (Epogen (Esrd)) 3,000 units TuThSa@17 SC Last administered on 08/03/18 17:05; Admin Dose 3,000 UNITS; Start 08/03/18 at 17:00 Levothyroxine Sodium (Synthroid) 100 mcg DAILY@06 PO Last administered on 08/06/18at 05:21; Admin Dose 100 MCG; Start 08/03/18 at 06:00 Hydrocortisone (Solu-Cortef) 100 mg TID IV Last administered on 08/06/18at 08:06; Admin Dose 100 MG; Start 08/04/18 at 13:00 Vancomycin HCl 250 ml @ 125 mls/hr Q96H IVPB Last administered on 08/04/18at 12:21; Admin Dose 125 MLS/HR; Start 08/04/18 at 12:00 Metoclopramide HCl (Reglan) 5 mg Q6H PRN IV NAUSEA AND/OR VOMITING; Start 08/05/18 at 10:49 Assessment/Plan Hospital Course (Demo Recall) IMPRESSION 1. Cardiopulmonary arrest. Prolonged CPR with ACLS protocol. 2. Multiple cardiopulmonary arrests and prolonged hypotension, now with persistent encephalopathy 3. End-stage renal failure on hemodialysis. 4. Possible aspiration pneumonia. Septic shock. Requiring vasopressor support, increasing pressor requirements persistent right lower lobe infiltrate 5. History of severe peripheral vascular disease. 6. Possible acute GI bleed given acute drop in hemoglobin prior to cardiac arrest 7. Stress dose steroids Plan 1. Vasopressor support as needed. Increased stress dose steroids decrease vaso pressor requirements noted 2. Mechanical ventilation pending tracheostomy 3. Broad-spectrum antibiotic coverage for possible aspiration. 4. GI recommendations pending G-tube 5. DVT and GI prophylaxis. Critical care time 40 minutes. Consider palliative care consult DEVAN MIDDLETON [facility] Aug 06, 2018 11:28
--- NOTE | 2018-08-06 12:03 | PN ---
Date/Time of Note Date/Time of Note DATE: 08/06/18 TIME: 12:00 Assessment/Plan VTE Prophylaxis Risk score (from Ns)>0 risk: 20 [place] [facility] [place] contraindicated: low risk/ambulating Pharmacological prophylaxis: NA/contraindicated Pharm contraindication: low risk/ambulating Lines/Catheters [facility] Central Line Central line still needed: Yes Urinary Cath still in place: Yes Reason Cath still needed: urinary retention Assessment/Plan Hospital Course 78 y/o with IMPRESSION: # Cardiac pulmonary arrest s/p vfib # Respiratory failure s/p intubation # Hypotension s/p shock? cardiac vs hypovolemic/septic #LE me anemia likely to secondary to GI bleed H&H stable status post unit 2 units of blood # Hyperkalemia due to missed hemodialysis.due to fall # Acute comminuted fractures of the distal tibia and fibula that involve the d istal tibiofibular joint. Distal tibia fracture extends to within 0.3 cm of the tibial plafond but does not involve the articular surface. The appearance is in keeping with an extra-articular Pilon fracture. #. Hyponatremia. resolved #. Metabolic acidosis. # Cardiomegaly and pulmonary edema. #. Aortic atherosclerosis. #. History of congestive heart failure. # History of diabetic retinopathy, nephropathy. #. Hypoalbuminemia. # The patient has right lower extremity brace.with fracture #. Left stump bruise now noticed to have a fracture on the left hip on the x- rays # ? AFIB. # Congestive heart failure by x-ray, question systolic versus diastolic, likely acute on chronic given presentation. # elevated troponin in the setting of end-stage kidney disease # Epigastric pain r/o gastritis/ GB disease> CT scan was pending # elevated troponin in the setting of cardiac arrest downtrending # Leukocytosis # AMS ? sedation vs s/p cpr arrest with encephalopathy , now with new cerebellar infarcts Plan - MRI Of the brain pending too unstable - Seen by neurology > poor prognosis - cw Low-dose aspirin statins/statin - Hd today, might give extra session of HDD tmw as anasarca - cw lantus icnrease to 22, add NPH - OFF Sedation> no response - f/u midodrine /hydrocortisone - abx per ID -Feeding as tolerated - Hb stable , no evidence of bleeding -Dr. [place] was also called for fracture of the left hip> intervention currently as patient is unstable -Hold anticoagulation due to bleeding - fu cardiac/pul recs Pt will need trach and peg per discussion with family > pt is full code again CALLED Dr Laguerre for Trach Result Diagram: 08/06/18 0400 08/06/18 0400 Results 24hrs Laboratory Tests Test 08/05/18 12:23 08/05/18 16:52 08/05/18 20:41 08/06/18 01:07 Bedside Glucose 303 H 272 H 210 255 H Test 08/06/18 04:00 08/06/18 05:20 08/06/18 08:11 White Blood Count 18.3 H Red Blood Count 2.79 L Hemoglobin 9.0 L Hematocrit 26.8 L Mean Corpuscular 96.1 Volume Mean Corpuscular 32.3 Hemoglobin Mean Corpuscular 33.6 Hemoglobin Concent Red Cell 23.4 H Distribution Width Platelet Count 222 # Mean Platelet Volume 12.5 H Immature 0.900 H Granulocytes % Neutrophils % 91.2 H Lymphocytes % 3.5 L Monocytes % 4.2 Eosinophils % 0.0 Basophils % 0.2 Nucleated Red Blood 0.9 H Cells % Immature 0.160 H Granulocytes # Neutrophils # 16.7 H Lymphocytes # 0.6 L Monocytes # 0.8 Eosinophils # 0.0 Basophils # 0.0 Nucleated Red Blood 0.2 H Cells # Sodium Level 129 L Potassium Level 3.6 Chloride Level 93 L Carbon Dioxide Level 25 Anion Gap 11 Blood Urea Nitrogen 42 H Creatinine 2.30 H Est Glomerular Filtrat Rate mL/min Glucose Level 215 Calcium Level 7.6 L Phosphorus Level 2.8 Magnesium Level 1.9 Bedside Glucose 231 H 211 Subjective 24 Hr Interval Summary Free Text/Dictation on low dose neospherinne sugars elevated off sedation >24 hrs> does not follow any commands Exam/Review of Systems Exam Vitals Vital Signs Date Temp Pulse Resp B/P (MAP) Pulse Ox O2 O2 Flow FiO2 Time Delivery Rate 08/06/18 98 11:30 08/06/18 24 116/35 95 Mechanical 10:30 (62) Ventilator 08/06/18 30 08:00 08/06/18 97.6 08:00 Intake and Output 08/05/18 08/05/18 08/06/18 1515:00 23:00 07:00 IntakeIntake Total 298.26 ml 422.48 ml 317.48 ml OutputOutput Total 0 ml 35 ml 0 ml BalanceBalance 298.26 ml 387.48 ml 317.48 ml Exam espiratory: diminished breath sounds Cardiovascular: regular rate and rhythm Gastrointestinal: soft, bowel sounds (+) Extremities: edema (+) 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 currently sedated Right arm more swollen than the left anasarca Results Results Results 24hrs Laboratory Tests Test 08/05/18 12:23 08/05/18 16:52 08/05/18 20:41 08/06/18 01:07 Bedside Glucose 303 H 272 H 210 255 H Test 08/06/18 04:00 08/06/18 05:20 08/06/18 08:11 White Blood Count 18.3 H Red Blood Count 2.79 L Hemoglobin 9.0 L Hematocrit 26.8 L Mean Corpuscular 96.1 Volume Mean Corpuscular 32.3 Hemoglobin Mean Corpuscular 33.6 Hemoglobin Concent Red Cell 23.4 H Distribution Width Platelet Count 222 # Mean Platelet Volume 12.5 H Immature 0.900 H Granulocytes % Neutrophils % 91.2 H Lymphocytes % 3.5 L Monocytes % 4.2 Eosinophils % 0.0 Basophils % 0.2 Nucleated Red Blood 0.9 H Cells % Immature 0.160 H Granulocytes # Neutrophils # 16.7 H Lymphocytes # 0.6 L Monocytes # 0.8 Eosinophils # 0.0 Basophils # 0.0 Nucleated Red Blood 0.2 H Cells # Sodium Level 129 L Potassium Level 3.6 Chloride Level 93 L Carbon Dioxide Level 25 Anion Gap 11 Blood Urea Nitrogen 42 H Creatinine 2.30 H Est Glomerular Filtrat Rate mL/min Glucose Level 215 Calcium Level 7.6 L Phosphorus Level 2.8 Magnesium Level 1.9 Bedside Glucose 231 H 211 Medications Medication Current Medications Multivit/Ca Carb/ B Cmplx/FA/Prenat (Shyann-Raj) 1 tab DAILY PO Last administered on 08/06/18at 08:06; Admin Dose 1 TAB; Start 07/14/18 at 09:00 Tramadol HCl (Ultram) 50 mg TID PRN PO PAIN LEVEL 6-10 Last administered on 07/24/18at 03:35; Admin Dose 50 MG; Start 07/13/18 at 23:30 Acetaminophen (Tylenol Tab) 650 mg Q6H PRN PO MILD PAIN(1-3)OR ELEVATED TEMP; Start 07/13/18 at 23:30 Hydralazine HCl (Apresoline) 20 mg Q6H PRN IV sbp over 170 Last administered on 07/14/18at 11:56; Admin Dose 20 MG; Start 07/13/18 at 23:30 Miscellaneous Information 1 ea NOTE XX ; Start 07/13/18 at 23:30 Glucose (Glutose) 15 gm Q15M PRN PO DECREASED GLUCOSE; Start 07/13/18 at 23:30 Glucose (Glutose) 22.5 gm Q15M PRN PO DECREASED GLUCOSE; Start 07/13/18 at 23:30 Dextrose (D50w Syringe) 25 ml Q15M PRN IV DECREASED GLUCOSE Last administered on 07/24/18at 08:19; Admin Dose 25 ML; Start 07/13/18 at 23:30 Dextrose (D50w Syringe) 50 ml Q15M PRN IV DECREASED GLUCOSE; Start 07/13/18 at 23:30 Glucagon (Glucagen) 1 mg Q15M PRN IM DECREASED GLUCOSE; Start 07/13/18 at 23:30 Glucose (Glutose) 15 gm Q15M PRN BUCCAL DECREASED GLUCOSE; Start 07/13/18 at 23:30 Ondansetron HCl (Zofran Inj) 4 mg Q4H PRN IV NAUSEA AND/OR VOMITING Last administered on 07/23/18at 16:30; Admin Dose 4 MG; Start 07/14/18 at 00:30 [facility] This patient easley... PRN PRN XX WOUND CARE; Start 07/14/18 at 04:30 Heparin Sodium (Porcine) (Heparin (1000 Units/ml)) 4,000 unit AFTER DIALYSIS CATHETER Last administered on 07/27/18at 20:16; Admin Dose 4,000 UNIT; Start 07/17/18 at 12:30 Diagnostic Test (Pha) (Accu-Chek) 1 ea 02 XX Last administered on 08/05/18at 01:22; Admin Dose 1 EA; Start 07/19/18 at 02:00 IV Flush (NS 3 ml) 3 ml PER PROTOCOL IV ; Start 07/20/18 at 11:30 Calcium/Vitamin D (Oyster Shell/ Vit-D (500/200)) 1 tab BID PO Last administered on 08/06/18 08:06; Admin Dose 1 TAB; Start 07/20/18 at 21:00 Metoprolol Tartrate (Lopressor) 5 mg Q4H PRN IV HR > 110; Hold if SBP < 100 Last administered on 07/21/18 01:52; Admin Dose 5 MG; Start 07/21/18 at 02:00 Norepinephrine 250 ml @ 1.875 mls/ hr TITRATE IV Last administered on 07/29/18 01:20; Admin Dose 3.75 MLS/HR; Start 07/24/18 at 11:00 Collagenase (Santyl) 1 applic DAILY TOP Last administered on 08/06/18 08:06; Admin Dose 1 APPLIC; Start 07/25/18 at 09:00 Phenylephrine HCl 80 mg/Dextrose 250 ml @ 18.75 mls/ hr TITRATE IV Last administered on 08/06/18 04:35; Admin Dose 14.06 MLS/HR; Start 07/24/18 at 20:30 Insulin Aspart (Novolog Insulin Pen) NOVOLOG *MILD* ALGORI... Q4 SC Last administered on 08/06/18 08:16; Admin Dose 2 UNIT; Start 07/24/18 at 21:00 Propofol 100 ml @ 1.851 mls/ hr Q12H IV Last administered on 07/28/18 20:30; Admin Dose 5.553 MLS/HR; Start 07/25/18 at 13:00 Fentanyl 100 ml @ 2.5 mls/hr TITRATE IV Last administered on 08/05/18 03:35; Admin Dose 5 MLS/HR; Start 07/26/18 at 11:00 Vancomycin HCl (Vanco Iv Per Pharmacy) VANCOMYCIN PER PHARMACY PER PROTOCOL XX ; Start 07/28/18 at 10:30 Cefepime HCl 50 ml @ 100 mls/hr Q24H IVPB Last administered on 08/05/18 12:24; Admin Dose 100 MLS/HR; Start 07/30/18 at 12:00 Lansoprazole (Prevacid) 30 mg BID@0600,1800 PO Last administered on 08/06/18 05:21; Admin Dose 30 MG; Start 07/30/18 at 18:00 Aspirin (Aspirin) 81 mg DAILY PO Last administered on 08/06/18 08:06; Admin Dose 81 MG; Start 07/30/18 at 11:30 Atorvastatin Calcium (Lipitor) 20 mg HS PO Last administered on 08/05/18at 20:43; Admin Dose 20 MG; Start 07/30/18 at 21:00 Midodrine (Proamatine) 10 mg TID@09,13,17 PO Last administered on 08/06/18 08:06; Admin Dose 10 MG; Start 07/30/18 at 13:00 Midazolam HCl 50 ml @ 1 mls/hr TITRATE IV Last administered on 08/03/18 14:52; Admin Dose 1 MLS/HR; Start 08/02/18 at 10:00 Epoetin Derick (Epogen (Esrd)) 3,000 units TuThSa@17 SC Last administered on 08/03/18 17:05; Admin Dose 3,000 UNITS; Start 08/03/18 at 17:00 Levothyroxine Sodium (Synthroid) 100 mcg DAILY@06 PO Last administered on 08/06/18at 05:21; Admin Dose 100 MCG; Start 08/03/18 at 06:00 Vancomycin HCl 250 ml @ 125 mls/hr Q96H IVPB Last administered on 08/04/18 12:21; Admin Dose 125 MLS/HR; Start 08/04/18 at 12:00 Metoclopramide HCl (Reglan) 5 mg Q6H PRN IV NAUSEA AND/OR VOMITING; Start 08/05/18 at 10:49 Insulin Glargine (Lantus) 22 units DAILY@0800 SC ; Start 08/07/18 at 08:00 Hydrocortisone (Solu-Cortef) 50 mg TID IV ; Start 08/06/18 at 13:00 ADAM DUARTE MD Aug 06, 2018 12:03
--- NOTE | 2018-08-06 12:51 | CONS ---
Assessment/Plan Assessment/Plan Hospital Course (Demo Recall) Patient is in hemodialysis, intubated, on pressors looks comfortable afebrile. WBC 18.3 H&H 9 and 26.8 platelets 222 neutrophils 91.2. Indwelling: Endotracheal tube NG tube right chest permacath femoral triple-lumen catheter, Hernandez catheter, rectal tube Microbiology: Nares swab positive for MRSA, urine culture positive for enterococcus, stool negative C. difficile Antimicrobials: Vancomycin, cefepime Physical examination: Chronically ill-appearing elderly woman who is intubated in no distress. Head atraumatic normocephalic sclera nonicteric. Neck is supple. Chest rise symmetrical, breath sounds diminished bases. Heart: S1-S2. Abdomen soft bowel sounds hypoactive. Extremities with right lower extremity in a cast patient has left below-knee amputation. Skin: Positive for anasarca, mottled sacral excoriation Assessment: 1. Severe sepsis with shock, rule out line sepsis 2. UTI 3. Diarrhea, C. difficile negative 4. Acute hypoxemic respiratory failure, possible aspiration pneumonia 5. Encephalopathy status post cardiopulmonary arrest with prolonged CPR and ACLS protocol 6. End-stage renal disease, hemodialysis dependent 7. Acute cerebellar infarcts, neurology on case Plan: Patient remains hemodynamically unstable, requiring vasopressor support, she is on appropriate antibiotic regimen, but will send blood cultures from hemodialysis catheter, order sputum culture, discontinue Hernandez catheter as she is anuric, add Bactroban to nares. Consultation Date/Type/Reason Admit Date/Time Jul 13, 2018 at 21:32 Initial Consult Date id Requesting Provider: ADAM DUARTE MD Date/Time of Note DATE: 08/06/18 TIME: 12:50 Exam/Review of Systems Exam Vitals Vital Signs Date Temp Pulse Resp B/P (MAP) Pulse Ox O2 O2 Flow FiO2 Time Delivery Rate 08/06/18 100 12:30 08/06/18 29 91/29 (49) 91 12:15 08/06/18 97.6 Mechanical 12:00 Ventilator 08/06/18 30 08:00 Intake and Output 08/05/18 08/05/18 08/06/18 1515:00 23:00 07:00 IntakeIntake Total 298.26 ml 422.48 ml 317.48 ml OutputOutput Total 0 ml 35 ml 0 ml BalanceBalance 298.26 ml 387.48 ml 317.48 ml Results Result Diagram: 08/06/18 0400 08/06/18 0400 Results 24hrs Laboratory Tests Test 08/05/18 16:52 08/05/18 20:41 08/06/18 01:07 08/06/18 04:00 Bedside Glucose 272 H 210 255 H White Blood Count 18.3 H Red Blood Count 2.79 L Hemoglobin 9.0 L Hematocrit 26.8 L Mean Corpuscular 96.1 Volume Mean Corpuscular 32.3 Hemoglobin Mean Corpuscular 33.6 Hemoglobin Concent Red Cell 23.4 H Distribution Width Platelet Count 222 # Mean Platelet Volume 12.5 H Immature 0.900 H Granulocytes % Neutrophils % 91.2 H Lymphocytes % 3.5 L Monocytes % 4.2 Eosinophils % 0.0 Basophils % 0.2 Nucleated Red Blood 0.9 H Cells % Immature 0.160 H Granulocytes # Neutrophils # 16.7 H Lymphocytes # 0.6 L Monocytes # 0.8 Eosinophils # 0.0 Basophils # 0.0 Nucleated Red Blood 0.2 H Cells # Sodium Level 129 L Potassium Level 3.6 Chloride Level 93 L Carbon Dioxide Level 25 Anion Gap 11 Blood Urea Nitrogen 42 H Creatinine 2.30 H Est Glomerular Filtrat Rate mL/min Glucose Level 215 Calcium Level 7.6 L Phosphorus Level 2.8 Magnesium Level 1.9 Test 08/06/18 05:20 08/06/18 08:11 Bedside Glucose 231 H 211 Medications Medication Current Medications Multivit/Ca Carb/ B Cmplx/FA/Prenat (Shyann-Raj) 1 tab DAILY PO Last administered on 08/06/18at 08:06; Admin Dose 1 TAB; Start 07/14/18 at 09:00 Tramadol HCl (Ultram) 50 mg TID PRN PO PAIN LEVEL 6-10 Last administered on 07/24/18at 03:35; Admin Dose 50 MG; Start 07/13/18 at 23:30 Acetaminophen (Tylenol Tab) 650 mg Q6H PRN PO MILD PAIN(1-3)OR ELEVATED TEMP; Start 07/13/18 at 23:30 Hydralazine HCl (Apresoline) 20 mg Q6H PRN IV sbp over 170 Last administered on 07/14/18at 11:56; Admin Dose 20 MG; Start 07/13/18 at 23:30 Miscellaneous Information 1 ea NOTE XX ; Start 07/13/18 at 23:30 Glucose (Glutose) 15 gm Q15M PRN PO DECREASED GLUCOSE; Start 07/13/18 at 23:30 Glucose (Glutose) 22.5 gm Q15M PRN PO DECREASED GLUCOSE; Start 07/13/18 at 23:30 Dextrose (D50w Syringe) 25 ml Q15M PRN IV DECREASED GLUCOSE Last administered on 07/24/18at 08:19; Admin Dose 25 ML; Start 07/13/18 at 23:30 Dextrose (D50w Syringe) 50 ml Q15M PRN IV DECREASED GLUCOSE; Start 07/13/18 at 23:30 Glucagon (Glucagen) 1 mg Q15M PRN IM DECREASED GLUCOSE; Start 07/13/18 at 23:30 Glucose (Glutose) 15 gm Q15M PRN BUCCAL DECREASED GLUCOSE; Start 07/13/18 at 23:30 Ondansetron HCl (Zofran Inj) 4 mg Q4H PRN IV NAUSEA AND/OR VOMITING Last administered on 07/23/18at 16:30; Admin Dose 4 MG; Start 07/14/18 at 00:30 Miscellaneous Information (Pending Santyl Order For Wound Care) This patient easley... PRN PRN XX WOUND CARE; Start 07/14/18 at 04:30 Heparin Sodium (Porcine) (Heparin (1000 Units/ml)) 4,000 unit AFTER DIALYSIS CATHETER Last administered on 07/27/18at 20:16; Admin Dose 4,000 UNIT; Start 07/17/18 at 12:30 Diagnostic Test (Pha) (Accu-Chek) 1 ea 02 XX Last administered on 08/05/18at 01:22; Admin Dose 1 EA; Start 07/19/18 at 02:00 IV Flush (NS 3 ml) 3 ml PER PROTOCOL IV ; Start 07/20/18 at 11:30 Calcium/Vitamin D (Oyster Shell/ Vit-D (500/200)) 1 tab BID PO Last administered on 08/06/18at 08:06; Admin Dose 1 TAB; Start 07/20/18 at 21:00 Metoprolol Tartrate (Lopressor) 5 mg Q4H PRN IV HR > 110; Hold if SBP < 100 Last administered on 07/21/18at 01:52; Admin Dose 5 MG; Start 07/21/18 at 02:00 Norepinephrine 250 ml @ 1.875 mls/ hr TITRATE IV Last administered on 07/29/18 01:20; Admin Dose 3.75 MLS/HR; Start 07/24/18 at 11:00 Collagenase (Santyl) 1 applic DAILY TOP Last administered on 08/06/18 08:06; Admin Dose 1 APPLIC; Start 07/25/18 at 09:00 Phenylephrine HCl 80 mg/Dextrose 250 ml @ 18.75 mls/ hr TITRATE IV Last a dministered on 08/06/18 04:35; Admin Dose 14.06 MLS/HR; Start 07/24/18 at 20:30 Insulin Aspart (Novolog Insulin Pen) NOVOLOG *MILD* ALGORI... Q4 SC Last administered on 08/06/18 08:16; Admin Dose 2 UNIT; Start 07/24/18 at 21:00 Propofol 100 ml @ 1.851 mls/ hr Q12H IV Last administered on 07/28/18 20:30; Admin Dose 5.553 MLS/HR; Start 07/25/18 at 13:00 Fentanyl 100 ml @ 2.5 mls/hr TITRATE IV Last administered on 08/05/18 03:35; Admin Dose 5 MLS/HR; Start 07/26/18 at 11:00 Vancomycin HCl (Vanco Iv Per Pharmacy) VANCOMYCIN PER PHARMACY PER PROTOCOL XX ; Start 07/28/18 at 10:30 Cefepime HCl 50 ml @ 100 mls/hr Q24H IVPB Last administered on 08/05/18 12:24; Admin Dose 100 MLS/HR; Start 07/30/18 at 12:00 Lansoprazole (Prevacid) 30 mg BID@0600,1800 PO Last administered on 08/06/18 05:21; Admin Dose 30 MG; Start 07/30/18 at 18:00 Aspirin (Aspirin) 81 mg DAILY PO Last administered on 08/06/18 08:06; Admin Dose 81 MG; Start 07/30/18 at 11:30 Atorvastatin Calcium (Lipitor) 20 mg HS PO Last administered on 08/05/18 20:43; Admin Dose 20 MG; Start 07/30/18 at 21:00 Midodrine (Proamatine) 10 mg TID@,,17 PO Last administered on 08/06/18 08:06; Admin Dose 10 MG; Start 07/30/18 at 13:00 Midazolam HCl 50 ml @ 1 mls/hr TITRATE IV Last administered on 08/03/18at 14:52; Admin Dose 1 MLS/HR; Start 08/02/18 at 10:00 Epoetin Derick (Epogen (Esrd)) 3,000 units TuThSa@17 SC Last administered on 08/03/18at 17:05; Admin Dose 3,000 UNITS; Start 08/03/18 at 17:00 Levothyroxine Sodium (Synthroid) 100 mcg DAILY@06 PO Last administered on 08/06/18 05:21; Admin Dose 100 MCG; Start 08/03/18 at 06:00 Vancomycin HCl 250 ml @ 125 mls/hr Q96H IVPB Last administered on 08/04/18at 12:21; Admin Dose 125 MLS/HR; Start 08/04/18 at 12:00 Metoclopramide HCl (Reglan) 5 mg Q6H PRN IV NAUSEA AND/OR VOMITING; Start 08/05/18 at 10:49 Insulin Glargine (Lantus) 22 units DAILY@0800 SC ; Start 08/07/18 at 08:00 Hydrocortisone (Solu-Cortef) 50 mg TID IV ; Start 08/06/18 at 13:00 Insulin Human NPH (Humulin N) 5 unit TID SC ; Start 08/06/18 at 13:00 INES ALMODOVAR NP Aug 06, 2018 12:51
[2018-08-06] MEDS: CEFEPIME 1GM/50 ML IVPB SCH (14:29)
[2018-08-06] MEDS: NPH, HUMAN INSULIN ISOPHANE 3ML VIAL SC SCH ×2 (15:01→21:39)
[2018-08-06] MEDS: MUPIROCIN 2% 22 GM OINT TOP SCH ×2 (15:14→21:36)
[2018-08-06] MEDS: EPOETIN 3000 UNITS/1 ML INJ (ESRD) SC SCH (16:33)
--- NOTE | 2018-08-06 19:46 | EN ---
Date/Time of Note Date/Time of Note DATE: 08/06/18 TIME: 19:45 ER Progress Note I was asked by her physician Dr Hernandez to put a central line for the patient in the ICU because she required pressor Central Line Placement by me: After the patient was consented and a time out was performed, appropriate hand hygiene was performed, the skin site was fully prepped and maximal sterile barrier technique was employed where the patient was sterilely draped, and the provider wore a mask and sterile gown and gloves. Anesthesia: 1% lidocaine locally Location: left femoral vein Device: Multiple lumen Technique: Seldinger technique. Secured with suture. Results: Venous return from all ports with easy saline flush. No complications. Guide wire retrieved and disposed of. ED Ultrasound: Central line placed by me using concurrent ultrasound guidance done using sterile technique. Real time image archived in the medical record confirms vascular anatomy. EMMA MCDONALD MD Aug 06, 2018 19:46
[2018-08-06] MEDS: ATORVASTATIN 20 MG TAB PO SCH (21:36)
[2018-08-07] VITALS (36 sets, daily range): BP systolic 102–132; BP diastolic 30–53; PULSE 80–100; RESP 18–33
[2018-08-07] MEDS: PROPOFOL 100 ML IV SCH ×2 (01:00→11:40)
[2018-08-07] MEDS: INSULIN ASPART [NOVOLOG] 3 ML PEN SC SCH ×6 (01:59→21:00)
[2018-08-07] MEDS: ACCU-CHEK XX SCH (02:00)
[2018-08-07] MEDS: LEVOTHYROXINE 100 MCG TAB PO SCH (05:18)
[2018-08-07] MEDS: LANSOPRAZOLE 30 MG CAP PO SCH ×2 (05:19→17:20)
--- NOTE | 2018-08-07 08:21 | PN ---
Date/Time of Note Date/Time of Note DATE: 08/07/18 TIME: 08:17 Assessment/Plan VTE Prophylaxis Risk score (from Ns)>0 risk: 20 [place] [facility] [place]CD contraindicated: low risk/ambulating Pharmacological prophylaxis: NA/contraindicated Pharm contraindication: low risk/ambulating Lines/Catheters IV Catheter Type (from [facility]): Central Line Central line still needed: Yes Urinary Cath still in place: No Assessment/Plan Hospital Course 78 y/o with IMPRESSION: # Cardiac pulmonary arrest s/p vfib # Respiratory failure s/p intubation # Hypotension s/p shock? cardiac vs hypovolemic/septic #LE me anemia likely to secondary to GI bleed H&H stable status post unit 2 units of blood # Hyperkalemia due to missed hemodialysis.due to fall # Acute comminuted fractures of the distal tibia and fibula that involve the distal tibiofibular joint. Distal tibia fracture extends to within 0.3 cm of the tibial plafond but does not involve the articular surface. The appearance is in keeping with an extra-articular Pilon fracture. #. Hyponatremia. resolved #. Metabolic acidosis. # Cardiomegaly and pulmonary edema. #. Aortic atherosclerosis. #. History of congestive heart failure. # History of diabetic retinopathy, nephropathy. #. Hypoalbuminemia. # The patient has right lower extremity brace.with fracture #. Left stump bruise now noticed to have a fracture on the left hip on the x- rays # ? AFIB. # Congestive heart failure by x-ray, question systolic versus diastolic, likely acute on chronic given presentation. # elevated troponin in the setting of end-stage kidney disease # Epigastric pain r/o gastritis/ GB disease> CT scan was pending # elevated troponin in the setting of cardiac arrest downtrending # Leukocytosis # AMS ? sedation vs s/p cpr arrest with encephalopathy , now with new cerebellar infarcts Plan - MRI Of the brain pending - Seen by neurology > poor prognosis - cw Low-dose aspirin statins/statin - Replete lytes - cw lantus 22, add NPH - OFF Sedation> no response> f/u neurology recs - f/u midodrine /hydrocortisone taper - abx per ID -Feeding as tolerated - Hb stable , no evidence of bleeding -Dr. Boston was also called for fracture of the left hip> intervention currently as patient is unstable, will recall again -Hold anticoagulation due to bleeding - fu cardiac/pul recs Dr Martínez called Dr Laguerre had been called too for trach Result Diagram: 08/07/189 08/07/18418 Results 24hrs Laboratory Tests Test 08/06/18 12:48 08/06/18 14:58 08/06/18 16:31 08/06/18 21:35 Bedside Glucose 135 177 204 210 Test 08/07/18 01:34 08/07/18 04:19 08/07/18 05:18 08/07/18 08:06 Bedside Glucose 216 185 185 White Blood Count 14.8 H Red Blood Count 2.47 L Hemoglobin 8.2 L Hematocrit 24.2 L Mean Corpuscular 98.0 Volume Mean Corpuscular 33.2 H Hemoglobin Mean Corpuscular 33.9 Hemoglobin Concent Red Cell 24.4 H Distribution Width Platelet Count 195 Mean Platelet Volume 12.3 H Immature 0.900 H Granulocytes % Neutrophils % 90.6 H Lymphocytes % 2.8 L Monocytes % 5.5 Eosinophils % 0.0 Basophils % 0.2 Nucleated Red Blood 0.9 H Cells % Immature 0.130 H Granulocytes # Neutrophils # 13.4 H Lymphocytes # 0.4 L Monocytes # 0.8 Eosinophils # 0.0 Basophils # 0.0 Nucleated Red Blood 0.1 H Cells # Sodium Level 133 L Potassium Level 3.1 L Chloride Level 96 L Carbon Dioxide Level 29 Anion Gap 8 Blood Urea Nitrogen 32 H Creatinine 1.69 H Est Glomerular Filtrat Rate mL/min Glucose Level 169 Calcium Level 7.3 L Phosphorus Level 2.4 L Magnesium Level 1.8 Subjective 24 Hr Interval Summary Free Text/Dictation off sedation x2 days off pressor does not follow any commands Exam/Review of Systems Exam Vitals Vital Signs Date Temp Pulse Resp B/P (MAP) Pulse Ox O2 O2 Flow FiO2 Time Delivery Rate 08/07/18 100 23 126/50 96 Mechanical 06:00 (75) Ventilator 08/07/18 30 05:34 08/07/18 97.5 04:00 Intake and Output 08/06/18 08/06/18 08/07/18 1414:59 22:59 06:59 IntakeIntake Total 177.94 ml 395.50 ml 340 ml OutputOutput Total 2000 ml 0 ml 0 ml BalanceBalance -1822.06 ml 395.50 ml 340 ml Exam respiratory: diminished breath sounds Cardiovascular: regular rate and rhythm Gastrointestinal: soft, bowel sounds (+) Extremities: edema (+) 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 currently sedated Right arm more swollen than the left anasarca does not follow commands, corneal=, gag + Results Results 24hrs Laboratory Tests Test 08/06/18 12:48 08/06/18 14:58 08/06/18 16:31 08/06/18 21:35 Bedside Glucose 135 177 204 210 Test 08/07/18 01:34 08/07/18 04:19 08/07/18 05:18 08/07/18 08:06 Bedside Glucose 216 185 185 White Blood Count 14.8 H Red Blood Count 2.47 L Hemoglobin 8.2 L Hematocrit 24.2 L Mean Corpuscular 98.0 Volume Mean Corpuscular 33.2 H Hemoglobin Mean Corpuscular 33.9 Hemoglobin Concent Red Cell 24.4 H Distribution Width Platelet Count 195 Mean Platelet Volume 12.3 H Immature 0.900 H Granulocytes % Neutrophils % 90.6 H Lymphocytes % 2.8 L Monocytes % 5.5 Eosinophils % 0.0 Basophils % 0.2 Nucleated Red Blood 0.9 H Cells % Immature 0.130 H Granulocytes # Neutrophils # 13.4 H Lymphocytes # 0.4 L Monocytes # 0.8 Eosinophils # 0.0 Basophils # 0.0 Nucleated Red Blood 0.1 H Cells # Sodium Level 133 L Potassium Level 3.1 L Chloride Level 96 L Carbon Dioxide Level 29 Anion Gap 8 Blood Urea Nitrogen 32 H Creatinine 1.69 H Est Glomerular Filtrat Rate mL/min Glucose Level 169 Calcium Level 7.3 L Phosphorus Level 2.4 L Magnesium Level 1.8 Medications Medication Current Medications Multivit/Ca Carb/ B Cmplx/FA/Prenat (Shyann-Raj) 1 tab DAILY PO Last administered on 08/06/18at 08:06; Admin Dose 1 TAB; Start 07/14/18 at 09:00 Tramadol HCl (Ultram) 50 mg TID PRN PO PAIN LEVEL 6-10 Last administered on 07/24/18at 03:35; Admin Dose 50 MG; Start 07/13/18 at 23:30 Acetaminophen (Tylenol Tab) 650 mg Q6H PRN PO MILD PAIN(1-3)OR ELEVATED TEMP; Start 07/13/18 at 23:30 Hydralazine HCl (Apresoline) 20 mg Q6H PRN IV sbp over 170 Last administered on 07/14/18at 11:56; Admin Dose 20 MG; Start 07/13/18 at 23:30 Miscellaneous Information 1 ea NOTE XX ; Start 07/13/18 at 23:30 Glucose (Glutose) 15 gm Q15M PRN PO DECREASED GLUCOSE; Start 07/13/18 at 23:30 Glucose (Glutose) 22.5 gm Q15M PRN PO DECREASED GLUCOSE; Start 07/13/18 at 23:30 Dextrose (D50w Syringe) 25 ml Q15M PRN IV DECREASED GLUCOSE Last administered on 07/24/18at 08:19; Admin Dose 25 ML; Start 07/13/18 at 23:30 Dextrose (D50w Syringe) 50 ml Q15M PRN IV DECREASED GLUCOSE; Start 07/13/18 at 23:30 Glucagon (Glucagen) 1 mg Q15M PRN IM DECREASED GLUCOSE; Start 07/13/18 at 23:30 Glucose (Glutose) 15 gm Q15M PRN BUCCAL DECREASED GLUCOSE; Start 07/13/18 at 23:30 Ondansetron HCl (Zofran Inj) 4 mg Q4H PRN IV NAUSEA AND/OR VOMITING Last administered on 07/23/18at 16:30; Admin Dose 4 MG; Start 07/14/18 at 00:30 Miscellaneous Information (Pending Santyl Order For Wound Care) This patient easley... PRN PRN XX WOUND CARE; Start 07/14/18 at 04:30 Heparin Sodium (Porcine) (Heparin (1000 Units/ml)) 4,000 unit AFTER DIALYSIS CATHETER Last administered on 07/27/18at 20:16; Admin Dose 4,000 UNIT; Start 07/17/18 at 12:30 Diagnostic Test (Pha) (Accu-Chek) 1 ea 02 XX Last administered on 08/05/18at 01:22; Admin Dose 1 EA; Start 07/19/18 at 02:00 IV Flush (NS 3 ml) 3 ml PER PROTOCOL IV ; Start 07/20/18 at 11:30 Calcium/Vitamin D (Oyster Shell/ Vit-D (500/200)) 1 tab BID PO Last administered on 08/06/18 21:36; Admin Dose 1 TAB; Start 07/20/18 at 21:00 Metoprolol Tartrate (Lopressor) 5 mg Q4H PRN IV HR > 110; Hold if SBP < 100 Last administered on 07/21/18 01:52; Admin Dose 5 MG; Start 07/21/18 at 02:00 Norepinephrine 250 ml @ 1.875 mls/ hr TITRATE IV Last administered on 07/29/18 01:20; Admin Dose 3.75 MLS/HR; Start 07/24/18 at 11:00 Collagenase (Santyl) 1 applic DAILY TOP Last administered on 08/06/18 08:06; Admin Dose 1 APPLIC; Start 07/25/18 at 09:00 Phenylephrine HCl 80 mg/Dextrose 250 ml @ 18.75 mls/ hr TITRATE IV Last administered on 08/06/18 04:35; Admin Dose 14.06 MLS/HR; Start 07/24/18 at 20:3 0 Insulin Aspart (Novolog Insulin Pen) NOVOLOG *MILD* ALGORI... Q4 SC Last administered on 08/07/18 05:21; Admin Dose 2 UNIT; Start 07/24/18 at 21:00 Propofol 100 ml @ 1.851 mls/ hr Q12H IV Last administered on 07/28/18 20:30; Admin Dose 5.553 MLS/HR; Start 07/25/18 at 13:00 Fentanyl 100 ml @ 2.5 mls/hr TITRATE IV Last administered on 08/05/18 03:35; Admin Dose 5 MLS/HR; Start 07/26/18 at 11:00 Vancomycin HCl (Vanco Iv Per Pharmacy) VANCOMYCIN PER PHARMACY PER PROTOCOL XX ; Start 07/28/18 at 10:30 Cefepime HCl 50 ml @ 100 mls/hr Q24H IVPB Last administered on 08/06/18 14:29; Admin Dose 100 MLS/HR; Start 07/30/18 at 12:00 Lansoprazole (Prevacid) 30 mg BID@0600,1800 PO Last administered on 08/07/18 05:19; Admin Dose 30 MG; Start 07/30/18 at 18:00 Aspirin (Aspirin) 81 mg DAILY PO Last administered on 08/06/18 08:06; Admin Dose 81 MG; Start 07/30/18 at 11:30 Atorvastatin Calcium (Lipitor) 20 mg HS PO Last administered on 08/06/18 21:36; Admin Dose 20 MG; Start 07/30/18 at 21:00 Midodrine (Proamatine) 10 mg TID@09,13,17 PO Last administered on 08/06/18 16:32; Admin Dose 10 MG; Start 07/30/18 at 13:00 Midazolam HCl 50 ml @ 1 mls/hr TITRATE IV Last administered on 08/03/18 14:52; Admin Dose 1 MLS/HR; Start 08/02/18 at 10:00 Epoetin Derick (Epogen (Esrd)) 3,000 units TuThSa@17 SC Last administered on 08/06/18 16:33; Admin Dose 3,000 UNITS; Start 08/03/18 at 17:00 Levothyroxine Sodium (Synthroid) 100 mcg DAILY@06 PO Last administered on 08/07/18 05:18; Admin Dose 100 MCG; Start 08/03/18 at 06:00 Vancomycin HCl 250 ml @ 125 mls/hr Q96H IVPB Last administered on 08/04/18 12:21; Admin Dose 125 MLS/HR; Start 08/04/18 at 12:00 Metoclopramide HCl (Reglan) 5 mg Q6H PRN IV NAUSEA AND/OR VOMITING; Start 08/05/18 at 10:49 Insulin Glargine (Lantus) 22 units DAILY@0800 SC ; Start 08/07/18 at 08:00 Hydrocortisone (Solu-Cortef) 50 mg TID IV Last administered on 08/06/18 21:36; Admin Dose 50 MG; Start 08/06/18 at 13:00 Insulin Human NPH (Humulin N) 5 unit TID SC Last administered on 08/06/18 21:39; Admin Dose 5 UNIT; Start 08/06/18 at 13:00 Mupirocin (Bactroban) 1 applic BID TOP Last administered on 08/06/18 21:36; Admin Dose 1 APPLIC; Start 08/06/18 at 14:00 Potassium Phosphate 30 mm/ Sodium Chloride 260 ml @ 65 mls/hr ONCE ONCE IVPB ; Start 08/07/18 at 08:30; Stop 08/07/18 at 12:29; Status ADAM ESQUEDA MD Aug 07, 2018 08:21
[2018-08-07] MEDS: INSULIN GLARGINE [LANTus] (100 UNITS/ML) SYG SC SCH (08:37)
[2018-08-07] MEDS: ASPIRIN 81 MG TAB PO SCH (08:43)
[2018-08-07] MEDS: HYDROCORTISONE 100 MG INJ IV SCH ×3 (08:43→21:06)
[2018-08-07] MEDS: MIDODRINE 5 MG TAB PO SCH ×3 (08:44→17:20)
[2018-08-07] MEDS: CALCIUM/VITAMIN D (500/200) TAB PO SCH ×2 (08:44→21:06)
[2018-08-07] MEDS: MULTIVIT/CA CARB/B CMPLX/FA TAB PO SCH (08:44)
[2018-08-07] MEDS: BALSAM PERU/CASTOR OIL 60 GM TUBE TOP SCH ×2 (08:45→21:07)
[2018-08-07] MEDS: COLLAGENASE 5 GM (UD JAR) TOP SCH (08:45)
[2018-08-07] MEDS: MUPIROCIN 2% 22 GM OINT TOP SCH ×2 (08:45→21:07)
[2018-08-07] MEDS: NPH, HUMAN INSULIN ISOPHANE 3ML VIAL SC SCH ×3 (08:48→21:21)
[2018-08-07] MEDS ORDERED: POTASSIUM PHOSPHATE 30 MM in SOD CHLORIDE 0.9% 250 ML IVPB ONE (09:30)
--- NOTE | 2018-08-07 10:15 | CONS ---
Assessment/Plan Assessment/Plan Hospital Course (Demo Recall) IMP: 1. Preoperative for LE ORIF-NL EF by echo with mod-sev TR. Lexiscan with NL EF and partially reversible inferior wall defect. Thus patient has no cardiac contraindication to proceeding to OR on current medications but at moderate to high risk. Now post-op s/p ORIF 2.Positive troponin 3.BRadycardia to 40's/stable BP. S Misael- now improved with decrease in dose of clonidine and having short runs of tachycardia/SVT. ? Now in AF s/p code yesterday 4.HOtn-now off summer on midodrine 5.ankle fracture 6.ESRD on HD 7. TR-mod-sev 8. ? sick euthyroid-elevated TSH and Free t4 9. Patient with PEA and VFA this am requiring ACLS and intubation protocol on onset during HD 10. anemia-acute drop. ? where bleeding,internal given abd pain. Now s/p transfusion PRBC's/possible melena overnight 11.PAF- in AF at this time. Reasonable rates on amiodarone 12. Nstemi- downtrending cardiac enzymes significantly 14. hypotension-on summer- s/p repeat echo 07/29 with EF slightly lower but still wnl 50% 15. UTI Recc -ICU -Continue midodrine BP support as necessary -continue vent support -Continue ASA as tolerated. Not on systemic anticoagulation secondary to anemia/GIB -transfuse PRBC's as necessary -HD as tolerated only -trend cardiac enzymes -Contineu abx's and f/u cx data -ongoing family discussion about direction of care with patient now currently full code Consultation Date/Type/Reason Admit Date/Time Jul 13, 2018 at 21:32 Initial Consult Date 07/16/18 Type of Consult Cardiology Reason for Consultation hypotension/tachycardia Requesting Provider: ADAM DUARTE MD Date/Time of Note DATE: 08/07/18 TIME: 10:12 Exam/Review of Systems Vital Signs Vitals Vital Signs Date Temp Pulse Resp B/P (MAP) Pulse Ox O2 O2 Flow FiO2 Time Delivery Rate 08/07/18 88 08:00 08/07/18 30 08:00 08/07/18 23 126/50 96 Mechanical 06:00 (75) Ventilator 08/07/18 97.5 04:00 Intake and Output 08/06/18 08/06/18 08/07/18 1515:00 23:00 07:00 IntakeIntake Total 261.88 ml 332.50 ml 305 ml OutputOutput Total 2000 ml 0 ml 0 ml BalanceBalance -1738.12 ml 332.50 ml 305 ml Exam Exam Review of Systems: CONSTITUTIONAL: No fevers, chills. PULMONARY: No sob CARDIOVASCULAR: No chest pain/palpitations GASTROINTESTINAL: No nausea/vomiting. GENITOURINARY: No hematuria/dysuria. MUSCULOSKELETAL: No myagias/arthalgias. PSYCHIATRIC: The patient denies depression. NEUROLOGIC: nonrespsonsive Constitutional: other (encephalopathic) Psych: no complaints Head: normocephalic ENMT: mucosa pink and moist Neck: supple, jvd (9 cm water) Respiratory: diminished breath sounds (at bases/B) Cardiovascular: irregular rhythm Gastrointestinal: soft, non-tender Musculoskeletal: other (LE amputation) Extremities: edema (trace) Labs Result Diagram: 08/07/18 0419 08/07/18 0419 Results 24hrs Laboratory Tests Test 08/06/18 12:48 08/06/18 14:58 08/06/18 16:31 08/06/18 21:35 Bedside Glucose 135 177 204 210 Test 08/07/18 01:34 08/07/18 04:19 08/07/18 05:18 08/07/18 08:06 Bedside Glucose 216 185 185 White Blood Count 14.8 H Red Blood Count 2.47 L Hemoglobin 8.2 L Hematocrit 24.2 L Mean Corpuscular 98.0 Volume Mean Corpuscular 33.2 H Hemoglobin Mean Corpuscular 33.9 Hemoglobin Concent Red Cell 24.4 H Distribution Width Platelet Count 195 Mean Platelet Volume 12.3 H Immature 0.900 H Granulocytes % Neutrophils % 90.6 H Lymphocytes % 2.8 L Monocytes % 5.5 Eosinophils % 0.0 Basophils % 0.2 Nucleated Red Blood 0.9 H Cells % Immature 0.130 H Granulocytes # Neutrophils # 13.4 H Lymphocytes # 0.4 L Monocytes # 0.8 Eosinophils # 0.0 Basophils # 0.0 Nucleated Red Blood 0.1 H Cells # Sodium Level 133 L Potassium Level 3.1 L Chloride Level 96 L Carbon Dioxide Level 29 Anion Gap 8 Blood Urea Nitrogen 32 H Creatinine 1.69 H Est Glomerular Filtrat Rate mL/min Glucose Level 169 Calcium Level 7.3 L Phosphorus Level 2.4 L Magnesium Level 1.8 Medications Medications Current Medications Multivit/Ca Carb/ B Cmplx/FA/Prenat (Shyann-Raj) 1 tab DAILY PO Last administered on 08/07/18at 08:44; Admin Dose 1 TAB; Start 07/14/18 at 09:00 Tramadol HCl (Ultram) 50 mg TID PRN PO PAIN LEVEL 6-10 Last administered on 07/24/18at 03:35; Admin Dose 50 MG; Start 07/13/18 at 23:30 Acetaminophen (Tylenol Tab) 650 mg Q6H PRN PO MILD PAIN(1-3)OR ELEVATED TEMP; Start 07/13/18 at 23:30 Hydralazine HCl (Apresoline) 20 mg Q6H PRN IV sbp over 170 Last administered on 07/14/18at 11:56; Admin Dose 20 MG; Start 07/13/18 at 23:30 Miscellaneous Information 1 ea NOTE XX ; Start 07/13/18 at 23:30 Glucose (Glutose) 15 gm Q15M PRN PO DECREASED GLUCOSE; Start 07/13/18 at 23:30 Glucose (Glutose) 22.5 gm Q15M PRN PO DECREASED GLUCOSE; Start 07/13/18 at 23:30 Dextrose (D50w Syringe) 25 ml Q15M PRN IV DECREASED GLUCOSE Last administered on 07/24/18at 08:19; Admin Dose 25 ML; Start 07/13/18 at 23:30 Dextrose (D50w Syringe) 50 ml Q15M PRN IV DECREASED GLUCOSE; Start 07/13/18 at 23:30 Glucagon (Glucagen) 1 mg Q15M PRN IM DECREASED GLUCOSE; Start 07/13/18 at 23:30 Glucose (Glutose) 15 gm Q15M PRN BUCCAL DECREASED GLUCOSE; Start 07/13/18 at 23:30 Ondansetron HCl (Zofran Inj) 4 mg Q4H PRN IV NAUSEA AND/OR VOMITING Last administered on 07/23/18at 16:30; Admin Dose 4 MG; Start 07/14/18 at 00:30 Miscellaneous Information (Pending [facility]) This patient easley... PRN PRN XX WOUND CARE; Start 07/14/18 at 04:30 Heparin Sodium (Porcine) (Heparin (1000 Units/ml)) 4,000 unit AFTER DIALYSIS CATHETER Last administered on 07/27/18 20:16; Admin Dose 4,000 UNIT; Start 07/17/18 at 12:30 Diagnostic Test (Pha) (Accu-Chek) 1 ea 02 XX Last administered on 08/05/18 01:22; Admin Dose 1 EA; Start 07/19/18 at 02:00 IV Flush (NS 3 ml) 3 ml PER PROTOCOL IV ; Start 07/20/18 at 11:30 Calcium/Vitamin D (Oyster Shell/ Vit-D (500/200)) 1 tab BID PO Last administered on 08/07/18 08:44; Admin Dose 1 TAB; Start 07/20/18 at 21:00 Metoprolol Tartrate (Lopressor) 5 mg Q4H PRN IV HR > 110; Hold if SBP < 100 Last administered on 07/21/18 01:52; Admin Dose 5 MG; Start 07/21/18 at 02:00 Norepinephrine 250 ml @ 1.875 mls/ hr TITRATE IV Last administered on 07/29/18 01:20; Admin Dose 3.75 MLS/HR; Start 07/24/18 at 11:00 Collagenase (Santyl) 1 applic DAILY TOP Last administered on 08/07/18 08:45; Admin Dose 1 APPLIC; Start 07/25/18 at 09:00 Phenylephrine HCl 80 mg/Dextrose 250 ml @ 18.75 mls/ hr TITRATE IV Last administered on 08/06/18 04:35; Admin Dose 14.06 MLS/HR; Start 07/24/18 at 20:30 Insulin Aspart (Novolog Insulin Pen) NOVOLOG *MILD* ALGORI... Q4 SC Last administered on 08/07/18 08:49; Admin Dose 2 UNIT; Start 07/24/18 at 21:00 Propofol 100 ml @ 1.851 mls/ hr Q12H IV Last administered on 07/28/18 20:30; Admin Dose 5.553 MLS/HR; Start 07/25/18 at 13:00 Fentanyl 100 ml @ 2.5 mls/hr TITRATE IV Last administered on 08/05/18 03:35; Admin Dose 5 MLS/HR; Start 07/26/18 at 11:00 Vancomycin HCl (Vanco Iv Per Pharmacy) VANCOMYCIN PER PHARMACY PER PROTOCOL XX ; Start 07/28/18 at 10:30 Cefepime HCl 50 ml @ 100 mls/hr Q24H IVPB Last administered on 08/06/18 14:29; Admin Dose 100 MLS/HR; Start 07/30/18 at 12:00 Lansoprazole (Prevacid) 30 mg BID@0600,1800 PO Last administered on 08/07/18 05:19; Admin Dose 30 MG; Start 07/30/18 at 18:00 Aspirin (Aspirin) 81 mg DAILY PO Last administered on 08/07/18 08:43; Admin Dose 81 MG; Start 07/30/18 at 11:30 Atorvastatin Calcium (Lipitor) 20 mg HS PO Last administered on 08/06/18 21:36; Admin Dose 20 MG; Start 07/30/18 at 21:00 Midodrine (Proamatine) 10 mg TID@09,13,17 PO Last administered on 08/07/18 08: 44; Admin Dose 10 MG; Start 07/30/18 at 13:00 Midazolam HCl 50 ml @ 1 mls/hr TITRATE IV Last administered on 08/03/18 14:52; Admin Dose 1 MLS/HR; Start 08/02/18 at 10:00 Epoetin Derick (Epogen (Esrd)) 3,000 units TuThSa@17 SC Last administered on 08/06/18 16:33; Admin Dose 3,000 UNITS; Start 08/03/18 at 17:00 Levothyroxine Sodium (Synthroid) 100 mcg DAILY@06 PO Last administered on 08/07/18 05:18; Admin Dose 100 MCG; Start 08/03/18 at 06:00 Vancomycin HCl 250 ml @ 125 mls/hr Q96H IVPB Last administered on 08/04/18 12:21; Admin Dose 125 MLS/HR; Start 08/04/18 at 12:00 Metoclopramide HCl (Reglan) 5 mg Q6H PRN IV NAUSEA AND/OR VOMITING; Start 08/05/18 at 10:49 Insulin Glargine (Lantus) 22 units DAILY@0800 SC Last administered on 08/07/18 08:37; Admin Dose 22 UNITS; Start 08/07/18 at 08:00 Insulin Human NPH (Humulin N) 5 unit TID SC Last administered on 08/07/18at 08:48; Admin Dose 5 UNIT; Start 08/06/18 at 13:00 Mupirocin (Bactroban) 1 applic BID TOP Last administered on 08/07/18at 08:45; Admin Dose 1 APPLIC; Start 08/06/18 at 14:00 Potassium Phosphate 30 mm/ Sodium Chloride 260 ml @ 65 mls/hr ONCE ONCE IVPB Last administered on 08/07/18at 09:25; Admin Dose 65 MLS/HR; Start 08/07/18 at 09:30; Stop 08/07/18 at 13:29 Hydrocortisone (Solu-Cortef) 25 mg TID IV Last administered on 08/07/18at 08:43; Admin Dose 25 MG; Start 08/07/18 at 09:00 JUSTICE HARRISON Aug 07, 2018 10:15
--- NOTE | 2018-08-07 11:02 | CONS ---
Consult Date/Type/Reason Admit Date/Time Jul 13, 2018 at 21:32 Initial Consult Date Type of Consult Pulmonary Requesting Provider: ADAM DUARTE MD Date/Time of Note DATE: 08/07/18 TIME: 11:01 Subjective Remains unresponsive on mechanical ventilation currently off vasopressors. Objective Vital Signs Date Temp Pulse Resp B/P (MAP) Pulse Ox O2 O2 Flow FiO2 Time Delivery Rate 08/07/18 88 08:00 08/07/18 30 08:00 08/07/18 23 126/50 96 Mechanical 06:00 (75) Ventilator 08/07/18 97.5 04:00 Intake and Output 08/06/18 08/06/18 08/07/18 1515:00 23:00 07:00 IntakeIntake Total 261.88 ml 332.50 ml 305 ml OutputOutput Total 2000 ml 0 ml 0 ml BalanceBalance -1738.12 ml 332.50 ml 305 ml Exam PHYSICAL EXAMINATION: GENERAL: Elderly-appearing lady, opens eyes to voice, talking in full and complete sentences VITAL SIGNS: NECK: Supple. No JVD or lymphadenopathy. CARDIAC: S1, S2, no added sounds or murmurs. CHEST: Diminished air entry bilaterally with rales. ABDOMEN: Soft, nontender. No guarding or rebound. EXTREMITIES: No cyanosis, clubbing or edema. NEUROLOGIC: Generalized weakness. Vent Setting Ventilator Support Mode: AC Fraction of Inspired Oxygen pe: 30 Positive End Expiratory Pressu: 5.0 Results/Medications Result Diagram: 08/07/18 0419 08/07/18 0419 Results 24 hrs Laboratory Tests Test 08/06/18 12:48 08/06/18 14:58 08/06/18 16:31 08/06/18 21:35 Bedside Glucose 135 177 204 210 Test 08/07/18 01:34 08/07/18 04:19 08/07/18 05:18 08/07/18 08:06 Bedside Glucose 216 185 185 White Blood Count 14.8 H Red Blood Count 2.47 L Hemoglobin 8.2 L Hematocrit 24.2 L Mean Corpuscular 98.0 Volume Mean Corpuscular 33.2 H Hemoglobin Mean Corpuscular 33.9 Hemoglobin Concent Red Cell 24.4 H Distribution Width Platelet Count 195 Mean Platelet Volume 12.3 H Immature 0.900 H Granulocytes % Neutrophils % 90.6 H Lymphocytes % 2.8 L Monocytes % 5.5 Eosinophils % 0.0 Basophils % 0.2 Nucleated Red Blood 0.9 H Cells % Immature 0.130 H Granulocytes # Neutrophils # 13.4 H Lymphocytes # 0.4 L Monocytes # 0.8 Eosinophils # 0.0 Basophils # 0.0 Nucleated Red Blood 0.1 H Cells # Sodium Level 133 L Potassium Level 3.1 L Chloride Level 96 L Carbon Dioxide Level 29 Anion Gap 8 Blood Urea Nitrogen 32 H Creatinine 1.69 H Est Glomerular Filtrat Rate mL/min Glucose Level 169 Calcium Level 7.3 L Phosphorus Level 2.4 L Magnesium Level 1.8 Medications Current Medications Multivit/Ca Carb/ B Cmplx/FA/Prenat (Shyann-Raj) 1 tab DAILY PO Last administered on 08/07/18at 08:44; Admin Dose 1 TAB; Start 07/14/18 at 09:00 Tramadol HCl (Ultram) 50 mg TID PRN PO PAIN LEVEL 6-10 Last administered on 07/24/18at 03:35; Admin Dose 50 MG; Start 07/13/18 at 23:30 Acetaminophen (Tylenol Tab) 650 mg Q6H PRN PO MILD PAIN(1-3)OR ELEVATED TEMP; Start 07/13/18 at 23:30 Hydralazine HCl (Apresoline) 20 mg Q6H PRN IV sbp over 170 Last administered on 07/14/18at 11:56; Admin Dose 20 MG; Start 07/13/18 at 23:30 Miscellaneous Information 1 ea NOTE XX ; Start 07/13/18 at 23:30 Glucose (Glutose) 15 gm Q15M PRN PO DECREASED GLUCOSE; Start 07/13/18 at 23:30 Glucose (Glutose) 22.5 gm Q15M PRN PO DECREASED GLUCOSE; Start 07/13/18 at 23:30 Dextrose (D50w Syringe) 25 ml Q15M PRN IV DECREASED GLUCOSE Last administered on 07/24/18at 08:19; Admin Dose 25 ML; Start 07/13/18 at 23:30 Dextrose (D50w Syringe) 50 ml Q15M PRN IV DECREASED GLUCOSE; Start 07/13/18 at 23:30 Glucagon (Glucagen) 1 mg Q15M PRN IM DECREASED GLUCOSE; Start 07/13/18 at 23:30 Glucose (Glutose) 15 gm Q15M PRN BUCCAL DECREASED GLUCOSE; Start 07/13/18 at 23:30 Ondansetron HCl (Zofran Inj) 4 mg Q4H PRN IV NAUSEA AND/OR VOMITING Last administered on 07/23/18 16:30; Admin Dose 4 MG; Start 07/14/18 at 00:30 Miscellaneous Information (Pending Santyl Order For Wound Care) This patient easley... PRN PRN XX WOUND CARE; Start 07/14/18 at 04:30 Heparin Sodium (Porcine) (Heparin (1000 Units/ml)) 4,000 unit AFTER DIALYSIS CATHETER Last administered on 07/27/18 20:16; Admin Dose 4,000 UNIT; Start 07/17/18 at 12:30 Diagnostic Test (Pha) (Accu-Chek) 1 ea 02 XX Last administered on 08/05/18 01:22; Admin Dose 1 EA; Start 07/19/18 at 02:00 IV Flush (NS 3 ml) 3 ml PER PROTOCOL IV ; Start 07/20/18 at 11:30 Calcium/Vitamin D (Oyster Shell/ Vit-D (500/200)) 1 tab BID PO Last ad ministered on 08/07/18 08:44; Admin Dose 1 TAB; Start 07/20/18 at 21:00 Metoprolol Tartrate (Lopressor) 5 mg Q4H PRN IV HR > 110; Hold if SBP < 100 Last administered on 07/21/18 01:52; Admin Dose 5 MG; Start 07/21/18 at 02:00 Norepinephrine 250 ml @ 1.875 mls/ hr TITRATE IV Last administered on 07/29/18 01:20; Admin Dose 3.75 MLS/HR; Start 07/24/18 at 11:00 Collagenase (Santyl) 1 applic DAILY TOP Last administered on 08/07/18 08:45; Admin Dose 1 APPLIC; Start 07/25/18 at 09:00 Phenylephrine HCl 80 mg/Dextrose 250 ml @ 18.75 mls/ hr TITRATE IV Last administered on 08/06/18 04:35; Admin Dose 14.06 MLS/HR; Start 07/24/18 at 20:30 Insulin Aspart (Novolog Insulin Pen) NOVOLOG *MILD* ALGORI... Q4 SC Last administered on 08/07/18 08:49; Admin Dose 2 UNIT; Start 07/24/18 at 21:00 Propofol 100 ml @ 1.851 mls/ hr Q12H IV Last administered on 07/28/18 20:30; Admin Dose 5.553 MLS/HR; Start 07/25/18 at 13:00 Fentanyl 100 ml @ 2.5 mls/hr TITRATE IV Last administered on 08/05/18 03:35; Admin Dose 5 MLS/HR; Start 07/26/18 at 11:00 Vancomycin HCl (Vanco Iv Per Pharmacy) VANCOMYCIN PER PHARMACY PER PROTOCOL XX ; Start 07/28/18 at 10:30 Cefepime HCl 50 ml @ 100 mls/hr Q24H IVPB Last administered on 08/06/18 14:29; Admin Dose 100 MLS/HR; Start 07/30/18 at 12:00 Lansoprazole (Prevacid) 30 mg BID@0600,1800 PO Last administered on 08/07/18 05:19; Admin Dose 30 MG; Start 07/30/18 at 18:00 Aspirin (Aspirin) 81 mg DAILY PO Last administered on 08/07/18 08:43; Admin Dose 81 MG; Start 07/30/18 at 11:30 Atorvastatin Calcium (Lipitor) 20 mg HS PO Last administered on 08/06/18 21:36; Admin Dose 20 MG; Start 07/30/18 at 21:00 Midodrine (Proamatine) 10 mg TID@09,13,17 PO Last administered on 08/07/18 08:44; Admin Dose 10 MG; Start 07/30/18 at 13:00 Midazolam HCl 50 ml @ 1 mls/hr TITRATE IV Last administered on 08/03/18 14:52; Admin Dose 1 MLS/HR; Start 08/02/18 at 10:00 Epoetin Derick (Epogen (Esrd)) 3,000 units TuThSa@17 SC Last administered on 08/06/18 16:33; Admin Dose 3,000 UNITS; Start 08/03/18 at 17:00 Levothyroxine Sodium (Synthroid) 100 mcg DAILY@06 PO Last administered on 08/07/18 05:18; Admin Dose 100 MCG; Start 08/03/18 at 06:00 Vancomycin HCl 250 ml @ 125 mls/hr Q96H IVPB Last administered on 08/04/18 12:21; Admin Dose 125 MLS/HR; Start 08/04/18 at 12:00 Metoclopramide HCl (Reglan) 5 mg Q6H PRN IV NAUSEA AND/OR VOMITING; Start 08/05/18 at 10:49 Insulin Glargine (Lantus) 22 units DAILY@0800 SC Last administered on 08/07/18 08:37; Admin Dose 22 UNITS; Start 08/07/18 at 08:00 Insulin Human NPH (Humulin N) 5 unit TID SC Last administered on 08/07/18 08:48; Admin Dose 5 UNIT; Start 08/06/18 at 13:00 Mupirocin (Bactroban) 1 applic BID TOP Last administered on 08/07/18 08:45; Admin Dose 1 APPLIC; Start 08/06/18 at 14:00 Potassium Phosphate 30 mm/ Sodium Chloride 260 ml @ 65 mls/hr ONCE ONCE IVPB Last administered on 08/07/18 09:25; Admin Dose 65 MLS/HR; Start 08/07/18 at 09:30; Stop 08/07/18 at 13:29 Hydrocortisone (Solu-Cortef) 25 mg TID IV Last administered on 08/07/18 08:43; Admin Dose 25 MG; Start 08/07/18 at 09:00 Assessment/Plan Hospital Course (Demo Recall) IMPRESSION 1. Cardiopulmonary arrest. Prolonged CPR with ACLS protocol. 2. Multiple cardiopulmonary arrests and prolonged hypotension, now with persistent encephalopathy 3. End-stage renal failure on hemodialysis. 4. Possible aspiration pneumonia. Septic shock. Requiring vasopressor support, increasing pressor requirements persistent right lower lobe infiltrate 5. History of severe peripheral vascular disease. 6. Possible acute GI bleed given acute drop in hemoglobin prior to cardiac arrest 7. Stress dose steroids Plan 1. Vasopressor support as needed. Increased stress dose steroids decrease vasopressor requirements noted 2. Mechanical ventilation pending tracheostomy 3. Broad-spectrum antibiotic coverage for possible aspiration. 4. GI recommendations pending G-tube 5. DVT and GI prophylaxis. Critical care time 40 minutes. Palliative care consultation and recommendations. Prognosis extremely poor would recommend transition to comfort care. DEVAN MIDDLETON MD, [facility] Aug 07, 2018 11:02
[2018-08-07] MEDS: CEFEPIME 1GM/50 ML IVPB SCH (11:49)
--- NOTE | 2018-08-07 15:16 | CONS ---
Assessment/Plan Assessment/Plan Hospital Course (Demo Recall) No acute changes overnight patient remains intubated off pressors afebrile. WBC 14.8 H&H 8.2 and 24.2 platelets 195 neutrophils 90.6. Microbiology: Blood cultures preliminary negative sputum culture negative stool for C. difficile negative urine culture grew enterococcus species Antimicrobials: Vancomycin cefepime Indwelling: Endotracheal tube NG tube right chest permacath femoral triple-lumen catheter, Hernandez catheter, rectal tube Physical examination: Chronically ill-appearing elderly woman who is intubated in no distress. Head atraumatic normocephalic sclera nonicteric. Neck is supple. Chest rise symmetrical, breath sounds diminished bases. Heart: S1-S2. Abdomen soft bowel sounds hypoactive. Extremities with right lower extremity in a cast patient has left below-knee amputation. Skin: Positive for anasarca, mottled sacral excoriation Assessment: 1. Severe sepsis with shock, rule out line sepsis 2. UTI 3. Diarrhea, C. difficile negative 4. Acute hypoxemic respiratory failure, possible aspiration pneumonia 5. Encephalopathy status post cardiopulmonary arrest with prolonged CPR and ACLS protocol 6. End-stage renal disease, hemodialysis dependent 7. Acute cerebellar infarcts, neurology on case 8. MRSA colonization Plan: Stable off pressors, continue present care, antibiotics, pulse steroids. Overall prognosis guarded, pending palliative care evaluation Consultation Date/Type/Reason Admit Date/Time Jul 13, 2018 at 21:32 Initial Consult Date id Requesting Provider: ADAM DUARTE MD Date/Time of Note DATE: 08/07/18 TIME: 15:14 Exam/Review of Systems Exam Vitals Vital Signs Date Temp Pulse Resp B/P (MAP) Pulse Ox O2 O2 Flow FiO2 Time Delivery Rate 08/07/18 85 12:00 08/07/18 24 128/51 97 Mechanical 11:00 (76) Ventilator 08/07/18 98.0 08:00 08/07/18 30 08:00 Intake and Output 08/06/18 08/06/18 08/07/18 1515:00 23:00 07:00 IntakeIntake Total 261.88 ml 332.50 ml 305 ml OutputOutput Total 2000 ml 0 ml 0 ml BalanceBalance -1738.12 ml 332.50 ml 305 ml Results Result Diagram: 08/07/18 0419 08/07/18 0419 Results 24hrs Laboratory Tests Test 08/06/18 16:31 08/06/18 21:35 08/07/18 01:34 08/07/18 04:19 Bedside Glucose 204 210 216 White Blood Count 14.8 H Red Blood Count 2.47 L Hemoglobin 8.2 L Hematocrit 24.2 L Mean Corpuscular 98.0 Volume Mean Corpuscular 33.2 H Hemoglobin Mean Corpuscular 33.9 Hemoglobin Concent Red Cell 24.4 H Distribution Width Platelet Count 195 Mean Platelet Volume 12.3 H Immature 0.900 H Granulocytes % Neutrophils % 90.6 H Lymphocytes % 2.8 L Monocytes % 5.5 Eosinophils % 0.0 Basophils % 0.2 Nucleated Red Blood 0.9 H Cells % Immature 0.130 H Granulocytes # Neutrophils # 13.4 H Lymphocytes # 0.4 L Monocytes # 0.8 Eosinophils # 0.0 Basophils # 0.0 Nucleated Red Blood 0.1 H Cells # Sodium Level 133 L Potassium Level 3.1 L Chloride Level 96 L Carbon Dioxide Level 29 Anion Gap 8 Blood Urea Nitrogen 32 H Creatinine 1.69 H Est Glomerular Filtrat Rate mL/min Glucose Level 169 Calcium Level 7.3 L Phosphorus Level 2.4 L Magnesium Level 1.8 Test 08/07/18 05:18 08/07/18 08:06 08/07/18 12:55 Bedside Glucose 185 185 110 Medications Medication Current Medications Multivit/Ca Carb/ B Cmplx/FA/Prenat (Shyann-Raj) 1 tab DAILY PO Last administered on 08/07/18at 08:44; Admin Dose 1 TAB; Start 07/14/18 at 09:00 Tramadol HCl (Ultram) 50 mg TID PRN PO PAIN LEVEL 6-10 Last administered on 07/24/18at 03:35; Admin Dose 50 MG; Start 07/13/18 at 23:30 Acetaminophen (Tylenol Tab) 650 mg Q6H PRN PO MILD PAIN(1-3)OR ELEVATED TEMP; Start 07/13/18 at 23:30 Hydralazine HCl (Apresoline) 20 mg Q6H PRN IV sbp over 170 Last administered on 07/14/18at 11:56; Admin Dose 20 MG; Start 07/13/18 at 23:30 Miscellaneous Information 1 ea NOTE XX ; Start 07/13/18 at 23:30 Glucose (Glutose) 15 gm Q15M PRN PO DECREASED GLUCOSE; Start 07/13/18 at 23:30 Glucose (Glutose) 22.5 gm Q15M PRN PO DECREASED GLUCOSE; Start 07/13/18 at 23:30 Dextrose (D50w Syringe) 25 ml Q15M PRN IV DECREASED GLUCOSE Last administered on 07/24/18at 08:19; Admin Dose 25 ML; Start 07/13/18 at 23:30 Dextrose (D50w Syringe) 50 ml Q15M PRN IV DECREASED GLUCOSE; Start 07/13/18 at 23:30 Glucagon (Glucagen) 1 mg Q15M PRN IM DECREASED GLUCOSE; Start 07/13/18 at 23:30 Glucose (Glutose) 15 gm Q15M PRN BUCCAL DECREASED GLUCOSE; Start 07/13/18 at 23:30 Ondansetron HCl (Zofran Inj) 4 mg Q4H PRN IV NAUSEA AND/OR VOMITING Last administered on 07/23/18at 16:30; Admin Dose 4 MG; Start 07/14/18 at 00:30 Miscellaneous Information ([facility]) This patient easley... PRN PRN XX WOUND CARE; Start 07/14/18 at 04:30 Heparin Sodium (Porcine) (Heparin (1000 Units/ml)) 4,000 unit AFTER DIALYSIS CATHETER Last administered on 07/27/18at 20:16; Admin Dose 4,000 UNIT; Start at 12:30 Diagnostic Test (Pha) (Accu-Chek) 1 ea 02 XX Last administered on 08/05/18at 01:22; Admin Dose 1 EA; Start 07/19/18 at 02:00 IV Flush (NS 3 ml) 3 ml PER PROTOCOL IV ; Start 07/20/18 at 11:30 Calcium/Vitamin D (Oyster Shell/ Vit-D (500/200)) 1 tab BID PO Last administered on 08/07/18at 08:44; Admin Dose 1 TAB; Start 07/20/18 at 21:00 Metoprolol Tartrate (Lopressor) 5 mg Q4H PRN IV HR > 110; Hold if SBP < 100 Last administered on 07/21/18at 01:52; Admin Dose 5 MG; Start 07/21/18 at 02:00 Norepinephrine 250 ml @ 1.875 mls/ hr TITRATE IV Last administered on 07/29/18 01:20; Admin Dose 3.75 MLS/HR; Start 07/24/18 at 11:00 Collagenase (Santyl) 1 applic DAILY TOP Last administered on 08/07/18 08:45; Admin Dose 1 APPLIC; Start 07/25/18 at 09:00 Phenylephrine HCl 80 mg/Dextrose 250 ml @ 18.75 mls/ hr TITRATE IV Last administered on 08/06/18 04:35; Admin Dose 14.06 MLS/HR; Start 07/24/18 at 20:30 Insulin Aspart (Novolog Insulin Pen) NOVOLOG *MILD* ALGORI... Q4 SC Last admini stered on 08/07/18 08:49; Admin Dose 2 UNIT; Start 07/24/18 at 21:00 Propofol 100 ml @ 1.851 mls/ hr Q12H IV Last administered on 07/28/18 20:30; Admin Dose 5.553 MLS/HR; Start 07/25/18 at 13:00 Fentanyl 100 ml @ 2.5 mls/hr TITRATE IV Last administered on 08/05/18 03:35; Admin Dose 5 MLS/HR; Start 07/26/18 at 11:00 Vancomycin HCl (Vanco Iv Per Pharmacy) VANCOMYCIN PER PHARMACY PER PROTOCOL XX ; Start 07/28/18 at 10:30 Cefepime HCl 50 ml @ 100 mls/hr Q24H IVPB Last administered on 08/07/18 11:49; Admin Dose 100 MLS/HR; Start 07/30/18 at 12:00 Lansoprazole (Prevacid) 30 mg BID@0600,1800 PO Last administered on 08/07/18 05:19; Admin Dose 30 MG; Start 07/30/18 at 18:00 Aspirin (Aspirin) 81 mg DAILY PO Last administered on 08/07/18 08:43; Admin Dose 81 MG; Start 07/30/18 at 11:30 Atorvastatin Calcium (Lipitor) 20 mg HS PO Last administered on 08/06/18 21:36; Admin Dose 20 MG; Start 07/30/18 at 21:00 Midodrine (Proamatine) 10 mg TID@,13,17 PO Last administered on 08/07/18 13:04; Admin Dose 10 MG; Start 07/30/18 at 13:00 Midazolam HCl 50 ml @ 1 mls/hr TITRATE IV Last administered on 08/03/18 14:52; Admin Dose 1 MLS/HR; Start 08/02/18 at 10:00 Epoetin Derick (Epogen (Esrd)) 3,000 units TuThSa@17 SC Last administered on 08/06/18 16:33; Admin Dose 3,000 UNITS; Start 08/03/18 at 17:00 Levothyroxine Sodium (Synthroid) 100 mcg DAILY@06 PO Last administered on 08/07/18 05:18; Admin Dose 100 MCG; Start 08/03/18 at 06:00 Vancomycin HCl 250 ml @ 125 mls/hr Q96H IVPB Last administered on 08/04/18 12:21; Admin Dose 125 MLS/HR; Start 08/04/18 at 12:00 Metoclopramide HCl (Reglan) 5 mg Q6H PRN IV NAUSEA AND/OR VOMITING; Start 08/05/18 at 10:49 Insulin Glargine (Lantus) 22 units DAILY@0800 SC Last administered on 08/07/18 08:37; Admin Dose 22 UNITS; Start 08/07/18 at 08:00 Insulin Human NPH (Humulin N) 5 unit TID SC Last administered on 08/07/18 12:59; Admin Dose 5 UNIT; Start 08/06/18 at 13:00 Mupirocin (Bactroban) 1 applic BID TOP Last administered on 08/07/18 08:45; Admin Dose 1 APPLIC; Start 08/06/18 at 14:00 Hydrocortisone (Solu-Cortef) 25 mg TID IV Last administered on 08/07/18 13:05; Admin Dose 25 MG; Start 08/07/18 at 09:00 INES ALMODOVAR NP Aug 07, 2018 15:16
[2018-08-07] MEDS: MIDAZOLAM (DRIP) 50 mg/50 mL 50 ML IV SCH (15:26)
--- NOTE | 2018-08-07 16:39 | CONS ---
Assessment/Plan Assessment/Plan Assessment/Plan (Daily) Hospital Course (Demo Recall) 78 yo female presented in cardiac arrest with prolonged ACLS Interval hx: Overnight pt continues to have tube feeds from mouth and nose when laid flat. No residuals noted. No coughing or gagging noted. Residuals this am are 10 cc of tube feeds. The content coming from her mouth when laid flat is pale beige, slightly tinged brown. She is only on phenylephrine gtt now. WBC are trending up. hgb 9.0. Neurology feels pt has a poor prognosis and discussed with family. Dr. Hernandez will have family meeting today. 1. Anemia, rule out gastrointestinal bleeding. -concern for GI bleed due to drop in H/H prior to cardiac arrest. -per RN bm was brown with potentially old melena, no active bleeding -FOB positive 2. Status post pulseless electrical activity period and cardiac arrest. 3. Ventilator-dependent respiratory failure. 4. End-stage renal disease, on dialysis. 5. 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 6. left aka 7. Ankle fracture. 8. Cirrhosis of liver 9. Gastroparesis 10. Multiple decubitus ulcers on buttocks and coccyx. 11. Enterococcus in urine Plan: Family meeting today. Please let us know if patient will need PEG Aspiration precautions Full code Monitor HH and replace as necessary. Consultation Date/Type/Reason Admit Date/Time Jul 13, 2018 at 21:32 Initial Consult Date Requesting Provider: ADAM HERNANDEZ MD Date/Time of Note DATE: 08/07/18 TIME: 16:38 24 HR Interval Summary Subjective hx not possible: pt non-verbal, pt critical status Exam/Review of Systems Exam Vitals Vital Signs Date Temp Pulse Resp B/P (MAP) Pulse Ox O2 O2 Flow FiO2 Time Delivery Rate 08/07/18 85 12:00 08/07/18 24 128/51 97 Mechanical 11:00 (76) Ventilator 08/07/18 98.0 08:00 08/07/18 30 08:00 Intake and Output 08/06/18 08/06/18 08/07/18 1515:00 23:00 07:00 IntakeIntake Total 261.88 ml 332.50 ml 305 ml OutputOutput Total 2000 ml 0 ml 0 ml BalanceBalance -1738.12 ml 332.50 ml 305 ml Neck: supple, non-tender Cardiovascular: regular rate and rhythm, nl pulses Extremities: normal pulses Neurological: unresponsive Results Result Diagram: 08/07/189 08/07/18 0419 Results 24hrs Laboratory Tests Test 08/06/18 21:35 08/07/18 01:34 08/07/18 04:19 08/07/18 05:18 Bedside Glucose 210 216 185 White Blood Count 14.8 H Red Blood Count 2.47 L Hemoglobin 8.2 L Hematocrit 24.2 L Mean Corpuscular 98.0 Volume Mean Corpuscular 33.2 H Hemoglobin Mean Corpuscular 33.9 Hemoglobin Concent Red Cell 24.4 H Distribution Width Platelet Count 195 Mean Platelet Volume 12.3 H Immature 0.900 H Granulocytes % Neutrophils % 90.6 H Lymphocytes % 2.8 L Monocytes % 5.5 Eosinophils % 0.0 Basophils % 0.2 Nucleated Red Blood 0.9 H Cells % Immature 0.130 H Granulocytes # Neutrophils # 13.4 H Lymphocytes # 0.4 L Monocytes # 0.8 Eosinophils # 0.0 Basophils # 0.0 Nucleated Red Blood 0.1 H Cells # Sodium Level 133 L Potassium Level 3.1 L Chloride Level 96 L Carbon Dioxide Level 29 Anion Gap 8 Blood Urea Nitrogen 32 H Creatinine 1.69 H Est Glomerular Filtrat Rate mL/min Glucose Level 169 Calcium Level 7.3 L Phosphorus Level 2.4 L Magnesium Level 1.8 Test 08/07/18 08:06 08/07/18 12:55 Bedside Glucose 185 110 Medications Medication Current Medications Multivit/Ca Carb/ B Cmplx/FA/Prenat (Shyann-Raj) 1 tab DAILY PO Last a dministered on 08/07/18at 08:44; Admin Dose 1 TAB; Start 07/14/18 at 09:00 Tramadol HCl (Ultram) 50 mg TID PRN PO PAIN LEVEL 6-10 Last administered on 07/24/18at 03:35; Admin Dose 50 MG; Start 07/13/18 at 23:30 Acetaminophen (Tylenol Tab) 650 mg Q6H PRN PO MILD PAIN(1-3)OR ELEVATED TEMP; Start 07/13/18 at 23:30 Hydralazine HCl (Apresoline) 20 mg Q6H PRN IV sbp over 170 Last administered on 07/14/18at 11:56; Admin Dose 20 MG; Start 07/13/18 at 23:30 Miscellaneous Information 1 ea NOTE XX ; Start 07/13/18 at 23:30 Glucose (Glutose) 15 gm Q15M PRN PO DECREASED GLUCOSE; Start 07/13/18 at 23:30 Glucose (Glutose) 22.5 gm Q15M PRN PO DECREASED GLUCOSE; Start 07/13/18 at 23:30 Dextrose (D50w Syringe) 25 ml Q15M PRN IV DECREASED GLUCOSE Last administered on 07/24/18at 08:19; Admin Dose 25 ML; Start 07/13/18 at 23:30 Dextrose (D50w Syringe) 50 ml Q15M PRN IV DECREASED GLUCOSE; Start 07/13/18 at 23:30 Glucagon (Glucagen) 1 mg Q15M PRN IM DECREASED GLUCOSE; Start 07/13/18 at 23:30 Glucose (Glutose) 15 gm Q15M PRN BUCCAL DECREASED GLUCOSE; Start 07/13/18 at 23:30 Ondansetron HCl (Zofran Inj) 4 mg Q4H PRN IV NAUSEA AND/OR VOMITING Last administered on 07/23/18at 16:30; Admin Dose 4 MG; Start 07/14/18 at 00:30 Miscellaneous Information (Pending [facility] Order For Wound Care) This patient easley... PRN PRN XX WOUND CARE; Start 07/14/18 at 04:30 Heparin Sodium (Porcine) (Heparin (1000 Units/ml)) 4,000 unit AFTER DIALYSIS CATHETER Last administered on 07/27/18at 20:16; Admin Dose 4,000 UNIT; Start 07/17/18 at 12:30 Diagnostic Test (Pha) (Accu-Chek) 1 ea 02 XX Last administered on 08/05/18at 01:22; Admin Dose 1 EA; Start 07/19/18 at 02:00 IV Flush (NS 3 ml) 3 ml PER PROTOCOL IV ; Start 07/20/18 at 11:30 Calcium/Vitamin D (Oyster Shell/ Vit-D (500/200)) 1 tab BID PO Last administered on 08/07/18at 08:44; Admin Dose 1 TAB; Start 07/20/18 at 21:00 Metoprolol Tartrate (Lopressor) 5 mg Q4H PRN IV HR > 110; Hold if SBP < 100 Last administered on 07/21/18 01:52; Admin Dose 5 MG; Start 07/21/18 at 02:00 Norepinephrine 250 ml @ 1.875 mls/ hr TITRATE IV Last administered on 07/29/18 01:20; Admin Dose 3.75 MLS/HR; Start 07/24/18 at 11:00 Collagenase (Santyl) 1 applic DAILY TOP Last administered on 08/07/18 08:45; Admin Dose 1 APPLIC; Start 07/25/18 at 09:00 Phenylephrine HCl 80 mg/Dextrose 250 ml @ 18.75 mls/ hr TITRATE IV Last administered on 08/06/18 04:35; Admin Dose 14.06 MLS/HR; Start 07/24/18 at 20:30 Insulin Aspart (Novolog Insulin Pen) NOVOLOG *MILD* ALGORI... Q4 SC Last administered on 08/07/18 08:49; Admin Dose 2 UNIT; Start 07/24/18 at 21:00 Propofol 100 ml @ 1.851 mls/ hr Q12H IV Last administered on 07/28/18 20:30; Admin Dose 5.553 MLS/HR; Start 07/25/18 at 13:00 Fentanyl 100 ml @ 2.5 mls/hr TITRATE IV Last administered on 08/05/18 03:35; Admin Dose 5 MLS/HR; Start 07/26/18 at 11:00 Vancomycin HCl (Vanco Iv Per Pharmacy) VANCOMYCIN PER PHARMACY PER PROTOCOL XX ; Start 07/28/18 at 10:30 Cefepime HCl 50 ml @ 100 mls/hr Q24H IVPB Last administered on 08/07/18 11 :49; Admin Dose 100 MLS/HR; Start 07/30/18 at 12:00 Lansoprazole (Prevacid) 30 mg BID@0600,1800 PO Last administered on 08/07/18 05:19; Admin Dose 30 MG; Start 07/30/18 at 18:00 Aspirin (Aspirin) 81 mg DAILY PO Last administered on 08/07/18 08:43; Admin Dose 81 MG; Start 07/30/18 at 11:30 Atorvastatin Calcium (Lipitor) 20 mg HS PO Last administered on 08/06/18 21:36; Admin Dose 20 MG; Start 07/30/18 at 21:00 Midodrine (Proamatine) 10 mg TID@09,13,17 PO Last administered on 08/07/18 13:04; Admin Dose 10 MG; Start 07/30/18 at 13:00 Midazolam HCl 50 ml @ 1 mls/hr TITRATE IV Last administered on 08/07/18 15:26; Admin Dose 1 MLS/HR; Start 08/02/18 at 10:00 Epoetin Derick (Epogen (Esrd)) 3,000 units TuThSa@17 SC Last administered on 08/06/18 16:33; Admin Dose 3,000 UNITS; Start 08/03/18 at 17:00 Levothyroxine Sodium (Synthroid) 100 mcg DAILY@06 PO Last administered on 08/07/18 05:18; Admin Dose 100 MCG; Start 08/03/18 at 06:00 Vancomycin HCl 250 ml @ 125 mls/hr Q96H IVPB Last administered on 08/04/18 12:21; Admin Dose 125 MLS/HR; Start 08/04/18 at 12:00 Metoclopramide HCl (Reglan) 5 mg Q6H PRN IV NAUSEA AND/OR VOMITING; Start 08/05/18 at 10:49 Insulin Glargine (Lantus) 22 units DAILY@0800 SC Last administered on 08/07/18 08:37; Admin Dose 22 UNITS; Start 08/07/18 at 08:00 Insulin Human NPH (Humulin N) 5 unit TID SC Last administered on 08/07/18 12:59; Admin Dose 5 UNIT; Start 08/06/18 at 13:00 Mupirocin (Bactroban) 1 applic BID TOP Last administered on 08/07/18 08:45; Admin Dose 1 APPLIC; Start 08/06/18 at 14:00 Hydrocortisone (Solu-Cortef) 25 mg TID IV Last administered on 08/07/18 13:05; Admin Dose 25 MG; Start 08/07/18 at 09:00 GLORIA TURNER MD Aug 07, 2018 16:39
[2018-08-07] MEDS: FENTAnyl (DRIP) 1000 mcg/100mL 100 ML IV SCH (17:28)
[2018-08-07] MEDS: DEXTROSE 50% 50 ML SYRINGE IV PRN (19:38)
--- NOTE | 2018-08-07 19:48 | CONS ---
Assessment/Plan Assessment/Plan Assessment/Plan (Daily) Respiratory failure status post cardiac arrest Family to decide about a possible tracheostomy Consultation Date/Type/Reason Admit Date/Time Jul 13, 2018 at 21:32 Date of Consultation: Aug 07, 2018 Type of Consult Thoracic surgery Reason for Consultation Possible tracheostomy Date/Time of Note DATE: 08/07/18 TIME: 19:46 Hx of Present Illness 78-year-old female status post fall with cardiac arrest currently intubated unable to come off the ventilator secondary to neurological deficits and comorbidities Respiratory: no complaints Cardiovascular: no complaints Gastrointestinal: no complaints Genitourinary: no complaints Musculoskeletal: no complaints Skin: no complaints Neurologic: no complaints Past Medical History Home Meds Reported Medications Atorvastatin* (Atorvastatin*) 40 Mg Tablet, 40 MG PO QHS, #30 TAB 07/13/18 Carvedilol* (Carvedilol*) 3.125 Mg Tablet, 3.125 MG PO BID, #60 TAB 07/13/18 Tramadol HCl (Tramadol HCl) 50 Mg Tablet, 50 MG PO TID PRN for PAIN LEVEL 6-10, #90 TAB 07/13/18 Multivit/Ca Carb/B Cmplx/Fa* (Shyann-Raj*) 1 Tab Tab, 1 TAB PO DAILY, TAB 07/13/18 Isosorbide Mononitrate* (Isosorbide Mononitrate*) 60 Mg Tab.er.24h, 60 MG PO DAILY, TAB 07/13/18 Pantoprazole* (Protonix*) 20 Mg Tablet.dr, 20 MG PO DAILY, TAB 07/13/18 Clonidine Hcl* (Clonidine Hcl*) 0.1 Mg Tab, 0.1 MG PO BID, TAB 07/13/18 Aspirin (Aspir-Low) 81 Mg Tablet.dr, 81 MG PO DAILY 07/13/18 Medications Current Medications Multivit/Ca Carb/ B Cmplx/FA/Prenat (Shyann-Raj) 1 tab DAILY PO Last adm inistered on 08/07/18at 08:44; Admin Dose 1 TAB; Start 07/14/18 at 09:00 Tramadol HCl (Ultram) 50 mg TID PRN PO PAIN LEVEL 6-10 Last administered on 07/24/18at 03:35; Admin Dose 50 MG; Start 07/13/18 at 23:30 Acetaminophen (Tylenol Tab) 650 mg Q6H PRN PO MILD PAIN(1-3)OR ELEVATED TEMP; Start 07/13/18 at 23:30 Hydralazine HCl (Apresoline) 20 mg Q6H PRN IV sbp over 170 Last administered on 07/14/18at 11:56; Admin Dose 20 MG; Start 07/13/18 at 23:30 Miscellaneous Information 1 ea NOTE XX ; Start 07/13/18 at 23:30 Glucose (Glutose) 15 gm Q15M PRN PO DECREASED GLUCOSE; Start 07/13/18 at 23:30 Glucose (Glutose) 22.5 gm Q15M PRN PO DECREASED GLUCOSE; Start 07/13/18 at 23:30 Dextrose (D50w Syringe) 25 ml Q15M PRN IV DECREASED GLUCOSE Last administered on 08/07/18at 19:38; Admin Dose 25 ML; Start 07/13/18 at 23:30 Dextrose (D50w Syringe) 50 ml Q15M PRN IV DECREASED GLUCOSE; Start 07/13/18 at 23:30 Glucagon (Glucagen) 1 mg Q15M PRN IM DECREASED GLUCOSE; Start 07/13/18 at 23:30 Glucose (Glutose) 15 gm Q15M PRN BUCCAL DECREASED GLUCOSE; Start 07/13/18 at 23:30 Ondansetron HCl (Zofran Inj) 4 mg Q4H PRN IV NAUSEA AND/OR VOMITING Last administered on 07/23/18at 16:30; Admin Dose 4 MG; Start 07/14/18 at 00:30 [facility] This patient easley... PRN PRN XX WOUND CARE; Start 07/14/18 at 04:30 Heparin Sodium (Porcine) (Heparin (1000 Units/ml)) 4,000 unit AFTER DIALYSIS CATHETER Last administered on 07/27/18at 20:16; Admin Dose 4,000 UNIT; Start 07/17/18 at 12:30 Diagnostic Test (Pha) (Accu-Chek) 1 ea 02 XX Last administered on 08/05/18at 01:22; Admin Dose 1 EA; Start 07/19/18 at 02:00 IV Flush (NS 3 ml) 3 ml PER PROTOCOL IV ; Start 07/20/18 at 11:30 Calcium/Vitamin D (Oyster Shell/ Vit-D (500/200)) 1 tab BID PO Last administered on 08/07/18 08:44; Admin Dose 1 TAB; Start 07/20/18 at 21:00 Metoprolol Tartrate (Lopressor) 5 mg Q4H PRN IV HR > 110; Hold if SBP < 100 Last administered on 07/21/18 01:52; Admin Dose 5 MG; Start 07/21/18 at 02:00 Norepinephrine 250 ml @ 1.875 mls/ hr TITRATE IV Last administered on 07/29/18 01:20; Admin Dose 3.75 MLS/HR; Start 07/24/18 at 11:00 Collagenase (Santyl) 1 applic DAILY TOP Last administered on 08/07/18 08:45; Admin Dose 1 APPLIC; Start 07/25/18 at 09:00 Phenylephrine HCl 80 mg/Dextrose 250 ml @ 18.75 mls/ hr TITRATE IV Last administered on 08/06/18 04:35; Admin Dose 14.06 MLS/HR; Start 07/24/18 at 20:30 Insulin Aspart (Novolog Insulin Pen) NOVOLOG *MILD* ALGORI... Q4 SC Last administered on 08/07/18 08:49; Admin Dose 2 UNIT; Start 07/24/18 at 21:00 Propofol 100 ml @ 1.851 mls/ hr Q12H IV Last administered on 07/28/18 20:30; Admin Dose 5.553 MLS/HR; Start 07/25/18 at 13:00 Fentanyl 100 ml @ 2.5 mls/hr TITRATE IV Last administered on 08/07/18 17:28; Admin Dose 2.5 MLS/HR; Start 07/26/18 at 11:00 Vancomycin HCl (Vanco Iv Per Pharmacy) VANCOMYCIN PER PHARMACY PER PROTOCOL XX ; Start 07/28/18 at 10:30 Cefepime HCl 50 ml @ 100 mls/hr Q24H IVPB Last administered on 08/07/18 11 :49; Admin Dose 100 MLS/HR; Start 07/30/18 at 12:00 Lansoprazole (Prevacid) 30 mg BID@0600,1800 PO Last administered on 08/07/18 17:20; Admin Dose 30 MG; Start 07/30/18 at 18:00 Aspirin (Aspirin) 81 mg DAILY PO Last administered on 08/07/18 08:43; Admin Dose 81 MG; Start 07/30/18 at 11:30 Atorvastatin Calcium (Lipitor) 20 mg HS PO Last administered on 08/06/18 21:36; Admin Dose 20 MG; Start 07/30/18 at 21:00 Midodrine (Proamatine) 10 mg TID@09,13,17 PO Last administered on 08/07/18 17:20; Admin Dose 10 MG; Start 07/30/18 at 13:00 Midazolam HCl 50 ml @ 1 mls/hr TITRATE IV Last administered on 08/07/18 15:26; Admin Dose 1 MLS/HR; Start 08/02/18 at 10:00 Epoetin Derick (Epogen (Esrd)) 3,000 units TuThSa@17 SC Last administered on 08/06/18 16:33; Admin Dose 3,000 UNITS; Start 08/03/18 at 17:00 Levothyroxine Sodium (Synthroid) 100 mcg DAILY@06 PO Last administered on 08/07/18 05:18; Admin Dose 100 MCG; Start 08/03/18 at 06:00 Vancomycin HCl 250 ml @ 125 mls/hr Q96H IVPB Last administered on 08/04/18 12:21; Admin Dose 125 MLS/HR; Start 08/04/18 at 12:00 Metoclopramide HCl (Reglan) 5 mg Q6H PRN IV NAUSEA AND/OR VOMITING; Start 08/05/18 at 10:49 Insulin Glargine (Lantus) 22 units DAILY@0800 SC Last administered on 08/07/18 08:37; Admin Dose 22 UNITS; Start 08/07/18 at 08:00 Insulin Human NPH (Humulin N) 5 unit TID SC Last administered on 08/07/18 12:59; Admin Dose 5 UNIT; Start 08/06/18 at 13:00 Mupirocin (Bactroban) 1 applic BID TOP Last administered on 08/07/18 08:45; Admin Dose 1 APPLIC; Start 08/06/18 at 14:00 Hydrocortisone (Solu-Cortef) 25 mg TID IV Last administered on 08/07/18 13:05; Admin Dose 25 MG; Start 08/07/18 at 09:00 Allergies: Coded Allergies: No Known Allergy (Unverified , 07/27/18) Social History Smoking Status: Unknown if ever smoked Exam/Review of Systems Exam Vitals Vital Signs Date Temp Pulse Resp B/P (MAP) Pulse Ox O2 O2 Flow FiO2 Time Delivery Rate 08/07/18 96 28 114/34 96 Mechanical 19:00 (60) Ventilator 08/07/18 30 17:05 08/07/18 97.9 16:00 Intake and Output 08/06/18 08/06/18 08/07/18 1515:00 23:00 07:00 IntakeIntake Total 261.88 ml 332.50 ml 305 ml OutputOutput Total 2000 ml 0 ml 0 ml BalanceBalance -1738.12 ml 332.50 ml 305 ml Eyes: nl conjunctiva, EOMI, nl lids, nl sclera, PERRL ENMT: nl external ears & nose, nl lips & teeth, nl nasal mucosa & septum Neck: supple, non-tender Respiratory: clear to auscultation, normal air movement Cardiovascular: regular rate and rhythm, nl pulses Gastrointestinal: soft, nl liver, spleen, non-tender Musculoskeletal: nl extremities to inspection, nl gait and stance Extremities: normal pulses Results Result Diagram: 08/07/18 0419 08/07/18 0419 Results 24hrs Laboratory Tests Test 08/06/18 21:35 08/07/18 01:34 08/07/18 04:19 08/07/18 05:18 Bedside Glucose 210 216 185 White Blood Count 14.8 H Red Blood Count 2.47 L Hemoglobin 8.2 L Hematocrit 24.2 L Mean Corpuscular 98.0 Volume Mean Corpuscular 33.2 H Hemoglobin Mean Corpuscular 33.9 Hemoglobin Concent Red Cell 24.4 H Distribution Width Platelet Count 195 Mean Platelet Volume 12.3 H Immature 0.900 H Granulocytes % Neutrophils % 90.6 H Lymphocytes % 2.8 L Monocytes % 5.5 Eosinophils % 0.0 Basophils % 0.2 Nucleated Red Blood 0.9 H Cells % Immature 0.130 H Granulocytes # Neutrophils # 13.4 H Lymphocytes # 0.4 L Monocytes # 0.8 Eosinophils # 0.0 Basophils # 0.0 Nucleated Red Blood 0.1 H Cells # Sodium Level 133 L Potassium Level 3.1 L Chloride Level 96 L Carbon Dioxide Level 29 Anion Gap 8 Blood Urea Nitrogen 32 H Creatinine 1.69 H Est Glomerular Filtrat Rate mL/min Glucose Level 169 Calcium Level 7.3 L Phosphorus Level 2.4 L Magnesium Level 1.8 Test 08/07/18 08:06 08/07/18 12:55 Bedside Glucose 185 110 Medications Medication Current Medications Multivit/Ca Carb/ B Cmplx/FA/Prenat (Shyann-Raj) 1 tab DAILY PO Last administered on 08/07/18at 08:44; Admin Dose 1 TAB; Start 07/14/18 at 09:00 Tramadol HCl (Ultram) 50 mg TID PRN PO PAIN LEVEL 6-10 Last administered on 07/24/18at 03:35; Admin Dose 50 MG; Start 07/13/18 at 23:30 Acetaminophen (Tylenol Tab) 650 mg Q6H PRN PO MILD PAIN(1-3)OR ELEVATED TEMP; Start 07/13/18 at 23:30 Hydralazine HCl (Apresoline) 20 mg Q6H PRN IV sbp over 170 Last administered on 07/14/18at 11:56; Admin Dose 20 MG; Start 07/13/18 at 23:30 Miscellaneous Information 1 ea NOTE XX ; Start 07/13/18 at 23:30 Glucose (Glutose) 15 gm Q15M PRN PO DECREASED GLUCOSE; Start 07/13/18 at 23:30 Glucose (Glutose) 22.5 gm Q15M PRN PO DECREASED GLUCOSE; Start 07/13/18 at 23:30 Dextrose (D50w Syringe) 25 ml Q15M PRN IV DECREASED GLUCOSE Last administered on 08/07/18at 19:38; Admin Dose 25 ML; Start 07/13/18 at 23:30 Dextrose (D50w Syringe) 50 ml Q15M PRN IV DECREASED GLUCOSE; Start 07/13/18 at 23:30 Glucagon (Glucagen) 1 mg Q15M PRN IM DECREASED GLUCOSE; Start 07/13/18 at 23:30 Glucose (Glutose) 15 gm Q15M PRN BUCCAL DECREASED GLUCOSE; Start 07/13/18 at 23:30 Ondansetron HCl (Zofran Inj) 4 mg Q4H PRN IV NAUSEA AND/OR VOMITING Last administered on 07/23/18at 16:30; Admin Dose 4 MG; Start 07/14/18 at 00:30 Miscellaneous Information (Pending Santyl Order For Wound Care) This patient easley... PRN PRN XX WOUND CARE; Start 07/14/18 at 04:30 Heparin Sodium (Porcine) (Heparin (1000 Units/ml)) 4,000 unit AFTER DIALYSIS CATHETER Last administered on 07/27/18 20:16; Admin Dose 4,000 UNIT; Start 07/17/18 at 12:30 Diagnostic Test (Pha) (Accu-Chek) 1 ea 02 XX Last administered on 08/05/18 01:22; Admin Dose 1 EA; Start 07/19/18 at 02:00 IV Flush (NS 3 ml) 3 ml PER PROTOCOL IV ; Start 07/20/18 at 11:30 Calcium/Vitamin D (Oyster Shell/ Vit-D (500/200)) 1 tab BID PO Last a dministered on 08/07/18 08:44; Admin Dose 1 TAB; Start 07/20/18 at 21:00 Metoprolol Tartrate (Lopressor) 5 mg Q4H PRN IV HR > 110; Hold if SBP < 100 Last administered on 07/21/18 01:52; Admin Dose 5 MG; Start 07/21/18 at 02:00 Norepinephrine 250 ml @ 1.875 mls/ hr TITRATE IV Last administered on 07/29/18 01:20; Admin Dose 3.75 MLS/HR; Start 07/24/18 at 11:00 Collagenase (Santyl) 1 applic DAILY TOP Last administered on 08/07/18 08:45; Admin Dose 1 APPLIC; Start 07/25/18 at 09:00 Phenylephrine HCl 80 mg/Dextrose 250 ml @ 18.75 mls/ hr TITRATE IV Last administered on 08/06/18 04:35; Admin Dose 14.06 MLS/HR; Start 07/24/18 at 20:30 Insulin Aspart (Novolog Insulin Pen) NOVOLOG *MILD* ALGORI... Q4 SC Last administered on 08/07/18 08:49; Admin Dose 2 UNIT; Start 07/24/18 at 21:00 Propofol 100 ml @ 1.851 mls/ hr Q12H IV Last administered on 07/28/18 20:30; Admin Dose 5.553 MLS/HR; Start 07/25/18 at 13:00 Fentanyl 100 ml @ 2.5 mls/hr TITRATE IV Last administered on 08/07/18 17:28; Admin Dose 2.5 MLS/HR; Start 07/26/18 at 11:00 Vancomycin HCl (Vanco Iv Per Pharmacy) VANCOMYCIN PER PHARMACY PER PROTOCOL XX ; Start 07/28/18 at 10:30 Cefepime HCl 50 ml @ 100 mls/hr Q24H IVPB Last administered on 08/07/18 11:49; Admin Dose 100 MLS/HR; Start 07/30/18 at 12:00 Lansoprazole (Prevacid) 30 mg BID@0600,1800 PO Last administered on 08/07/18 17:20; Admin Dose 30 MG; Start 07/30/18 at 18:00 Aspirin (Aspirin) 81 mg DAILY PO Last administered on 08/07/18 08:43; Admin Dose 81 MG; Start 07/30/18 at 11:30 Atorvastatin Calcium (Lipitor) 20 mg HS PO Last administered on 08/06/18 21:36; Admin Dose 20 MG; Start 07/30/18 at 21:00 Midodrine (Proamatine) 10 mg TID@09,13,17 PO Last administered on 08/07/18 17:20; Admin Dose 10 MG; Start 07/30/18 at 13:00 Midazolam HCl 50 ml @ 1 mls/hr TITRATE IV Last administered on 08/07/18 15:26; Admin Dose 1 MLS/HR; Start 08/02/18 at 10:00 Epoetin Derick (Epogen (Esrd)) 3,000 units TuThSa@17 SC Last administered on 08/06/18 16:33; Admin Dose 3,000 UNITS; Start 08/03/18 at 17:00 Levothyroxine Sodium (Synthroid) 100 mcg DAILY@06 PO Last administered on 08/07/18 05:18; Admin Dose 100 MCG; Start 08/03/18 at 06:00 Vancomycin HCl 250 ml @ 125 mls/hr Q96H IVPB Last administered on 08/04/18 12:21; Admin Dose 125 MLS/HR; Start 08/04/18 at 12:00 Metoclopramide HCl (Reglan) 5 mg Q6H PRN IV NAUSEA AND/OR VOMITING; Start 08/05/18 at 10:49 Insulin Glargine (Lantus) 22 units DAILY@0800 SC Last administered on 08/07/18 08:37; Admin Dose 22 UNITS; Start 08/07/18 at 08:00 Insulin Human NPH (Humulin N) 5 unit TID SC Last administered on 08/07/18 12:59; Admin Dose 5 UNIT; Start 08/06/18 at 13:00 Mupirocin (Bactroban) 1 applic BID TOP Last administered on 08/07/18 08:45; Admin Dose 1 APPLIC; Start 08/06/18 at 14:00 Hydrocortisone (Solu-Cortef) 25 mg TID IV Last administered on 08/07/18 13:05; Admin Dose 25 MG; Start 08/07/18 at 09:00 CHALO SOARES MD Aug 07, 2018 19:48
[2018-08-07] MEDS: ATORVASTATIN 20 MG TAB PO SCH (21:06)
[2018-08-08] VITALS (69 sets, daily range): BP systolic 75–125; BP diastolic 25–47; PULSE 71–94; RESP 16–33
[2018-08-08] MEDS: PROPOFOL 100 ML IV SCH ×2 (00:38→13:00)
[2018-08-08] MEDS: INSULIN ASPART [NOVOLOG] 3 ML PEN SC SCH ×6 (01:00→20:39)
[2018-08-08] MEDS: ACCU-CHEK XX SCH (01:44)
[2018-08-08] MEDS: LANSOPRAZOLE 30 MG CAP PO SCH ×2 (05:35→17:54)
[2018-08-08] MEDS: LEVOTHYROXINE 100 MCG TAB PO SCH (05:35)
[2018-08-08] MEDS: CALCIUM/VITAMIN D (500/200) TAB PO SCH ×2 (08:19→20:36)
[2018-08-08] MEDS: HYDROCORTISONE 100 MG INJ IV SCH ×3 (08:19→20:36)
[2018-08-08] MEDS: MULTIVIT/CA CARB/B CMPLX/FA TAB PO SCH (08:19)
[2018-08-08] MEDS: ASPIRIN 81 MG TAB PO SCH (08:19)
[2018-08-08] MEDS: BALSAM PERU/CASTOR OIL 60 GM TUBE TOP SCH ×2 (08:20→20:37)
[2018-08-08] MEDS: MUPIROCIN 2% 22 GM OINT TOP SCH ×2 (08:20→20:37)
[2018-08-08] MEDS: NPH, HUMAN INSULIN ISOPHANE 3ML VIAL SC SCH ×3 (08:28→20:38)
[2018-08-08] MEDS: INSULIN GLARGINE [LANTus] (100 UNITS/ML) SYG SC SCH (08:29)
[2018-08-08] MEDS: MIDODRINE 5 MG TAB PO SCH ×3 (08:53→17:02)
[2018-08-08] MEDS: COLLAGENASE 5 GM (UD JAR) TOP SCH ×2 (08:58→10:33)
[2018-08-08] MEDS ORDERED: COLLAGENASE 5 GM (UD JAR) TOP PRN (09:30)
[2018-08-08] MEDS ORDERED: COLLAGENASE 5 GM (UD JAR) TOP SCH (09:30)
--- NOTE | 2018-08-08 10:22 | PN ---
Date/Time of Note Date/Time of Note DATE: 08/08/18 TIME: 10:22 Assessment/Plan VTE Prophylaxis Risk score (from Ns)>0 risk: 22 SCD applied (from Ns): No SCD contraindicated: low risk/ambulating Pharmacological prophylaxis: NA/contraindicated Pharm contraindication: low risk/ambulating Lines/Catheters [facility] Central Line Central line still needed: Yes Urinary Cath still in place: No Assessment/Plan Hospital Course 78 y/o with IMPRESSION: # Cardiac pulmonary arrest s/p vfib # Respiratory failure s/p intubation # Hypotension s/p shock? cardiac vs hypovolemic/septic #LE me anemia likely to secondary to GI bleed H&H stable status post unit 2 units of blood # Hyperkalemia due to missed hemodialysis.due to fall # Acute comminuted fractures of the distal tibia and fibula that involve the distal tibiofibular joint. Distal tibia fracture extends to within 0.3 cm of the tibial plafond but does not involve the articular surface. The appearance is in keeping with an extra-articular Pilon fracture. #. Hyponatremia. resolved #. Metabolic acidosis. # Cardiomegaly and pulmonary edema. #. Aortic atherosclerosis. #. History of congestive heart failure. # History of diabetic retinopathy, nephropathy. #. Hypoalbuminemia. # The patient has right lower extremity brace.with fracture #. Left stump bruise now noticed to have a fracture on the left hip on the x- rays # ? AFIB. # Congestive heart failure by x-ray, question systolic versus diastolic, likely acute on chronic given presentation. # elevated troponin in the setting of end-stage kidney disease # Epigastric pain r/o gastritis/ GB disease> CT scan was pending # elevated troponin in the setting of cardiac arrest downtrending # Leukocytosis # AMS ? sedation vs s/p cpr arrest with encephalopathy , now with new cerebellar infarcts Plan - Seen by neurology > poor prognosis - cw Low-dose aspirin statins/statin - cw vasopressor - would hold HD as unstable again SBP 80 - Replete lytes - cw lantus 22, add NPH - OFF Sedation> no response> f/u neurology recs - f/u midodrine /hydrocortisone taper - abx per ID> diflucan -Feeding as tolerated - Hb stable , no evidence of bleeding -Dr. [place] was also called for fracture of the left hip> intervention currently as patient is unstable, will recall again -Hold anticoagulation due to bleeding - fu cardiac/pul recs Dr Martínez called>? Trach, family meeting was done> again meeting tmw Dr Laguerre had been called too for trach but pts family likely inclining on keeping comfortable Result Diagram: 08/08/18 0502 08/08/18 0500 Results 24hrs Laboratory Tests Test 08/07/18 12:55 08/07/18 17:16 08/07/18 19:14 08/07/18 19:34 Bedside Glucose 110 72 62 L Glucose Level 62 #L Test 08/07/18 19:54 08/07/18 20:10 08/07/18 21:09 08/08/18 01:27 Bedside Glucose 126 104 106 129 Test 08/08/18 05:00 08/08/18 05:01 08/08/18 05:02 08/08/18 05:03 Sodium Level 133 L Potassium Level 3.2 L Chloride Level 99 Carbon Dioxide Level 24 Anion Gap 10 Blood Urea Nitrogen 49 #H Creatinine 1.82 H Est Glomerular Filtrat Rate mL/min Glucose Level 117 # Calcium Level 6.9 L Bedside Glucose 140 White Blood Count 17.1 H Red Blood Count 2.17 L Hemoglobin 7.4 L Hematocrit 21.7 L Mean Corpuscular 100.0 Volume Mean Corpuscular 34.1 H Hemoglobin Mean Corpuscular 34.1 Hemoglobin Concent Red Cell 26.6 H Distribution Width Platelet Count 182 Mean Platelet Volume 12.2 H Immature 0.800 H Granulocytes % Neutrophils % 89.0 H Lymphocytes % 3.6 L Monocytes % 6.5 Eosinophils % 0.0 Basophils % 0.1 Nucleated Red Blood 1.9 H Cells % Immature 0.130 H Granulocytes # Neutrophils # 15.2 H Lymphocytes # 0.6 L Monocytes # 1.1 H Eosinophils # 0.0 Basophils # 0.0 Nucleated Red Blood 0.3 H Cells # Phosphorus Level 4.2 Magnesium Level 1.7 Test 08/08/18 07:40 Bedside Glucose 162 Subjective 24 Hr Interval Summary Free Text/Dictation Pt is on pressor and sedation as was agitated Exam/Review of Systems Exam Vitals Vital Signs Date Temp Pulse Resp B/P (MAP) Pulse Ox O2 O2 Flow FiO2 Time Delivery Rate 08/08/18 88 23 97/41 (59) 96 Mechanical 10:00 Ventilator 08/08/18 30 09:40 08/08/18 97.4 07:00 Intake and Output 08/07/18 08/07/18 08/08/18 1515:00 23:00 07:00 IntakeIntake Total 680 ml 366.75 ml 364.5 ml OutputOutput Total 0 ml 100 ml 225 ml BalanceBalance 680 ml 266.75 ml 139.5 ml Exam espiratory: diminished breath sounds Cardiovascular: regular rate and rhythm Gastrointestinal: soft, bowel sounds (+) Extremities: edema (+) 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 currently sedated Right arm more swollen than the left anasarca does not follow commands, corneal+, gag + Results Results 24hrs Laboratory Tests Test 08/07/18 12:55 08/07/18 17:16 08/07/18 19:14 08/07/18 19:34 Bedside Glucose 110 72 62 L Glucose Level 62 #L Test 08/07/18 19:54 08/07/18 20:10 08/07/18 21:09 08/08/18 01:27 Bedside Glucose 126 104 106 129 Test 08/08/18 05:00 08/08/18 05:01 08/08/18 05:02 08/08/18 05:03 Sodium Level 133 L Potassium Level 3.2 L Chloride Level 99 Carbon Dioxide Level 24 Anion Gap 10 Blood Urea Nitrogen 49 #H Creatinine 1.82 H Est Glomerular Filtrat Rate mL/min Glucose Level 117 # Calcium Level 6.9 L Bedside Glucose 140 White Blood Count 17.1 H Red Blood Count 2.17 L Hemoglobin 7.4 L Hematocrit 21.7 L Mean Corpuscular 100.0 Volume Mean Corpuscular 34.1 H Hemoglobin Mean Corpuscular 34.1 Hemoglobin Concent Red Cell 26.6 H Distribution Width Platelet Count 182 Mean Platelet Volume 12.2 H Immature 0.800 H Granulocytes % Neutrophils % 89.0 H Lymphocytes % 3.6 L Monocytes % 6.5 Eosinophils % 0.0 Basophils % 0.1 Nucleated Red Blood 1.9 H Cells % Immature 0.130 H Granulocytes # Neutrophils # 15.2 H Lymphocytes # 0.6 L Monocytes # 1.1 H Eosinophils # 0.0 Basophils # 0.0 Nucleated Red Blood 0.3 H Cells # Phosphorus Level 4.2 Magnesium Level 1.7 Test 08/08/18 07:40 Bedside Glucose 162 Medications Medication Current Medications Multivit/Ca Carb/ B Cmplx/FA/Prenat (Shyann-Raj) 1 tab DAILY PO Last administered on 08/08/18at 08:19; Admin Dose 1 TAB; Start 07/14/18 at 09:00 Tramadol HCl (Ultram) 50 mg TID PRN PO PAIN LEVEL 6-10 Last administered on 07/24/18at 03:35; Admin Dose 50 MG; Start 07/13/18 at 23:30 Acetaminophen (Tylenol Tab) 650 mg Q6H PRN PO MILD PAIN(1-3)OR ELEVATED TEMP; Start 07/13/18 at 23:30 Hydralazine HCl (Apresoline) 20 mg Q6H PRN IV sbp over 170 Last administered on 07/14/18at 11:56; Admin Dose 20 MG; Start 07/13/18 at 23:30 Miscellaneous Information 1 ea NOTE XX ; Start 07/13/18 at 23:30 Glucose (Glutose) 15 gm Q15M PRN PO DECREASED GLUCOSE; Start 07/13/18 at 23:30 Glucose (Glutose) 22.5 gm Q15M PRN PO DECREASED GLUCOSE; Start 07/13/18 at 23:30 Dextrose (D50w Syringe) 25 ml Q15M PRN IV DECREASED GLUCOSE Last administered on 08/07/18at 19:38; Admin Dose 25 ML; Start 07/13/18 at 23:30 Dextrose (D50w Syringe) 50 ml Q15M PRN IV DECREASED GLUCOSE; Start 07/13/18 at 23:30 Glucagon (Glucagen) 1 mg Q15M PRN IM DECREASED GLUCOSE; Start 07/13/18 at 23:30 Glucose (Glutose) 15 gm Q15M PRN BUCCAL DECREASED GLUCOSE; Start 07/13/18 at 23:30 Ondansetron HCl (Zofran Inj) 4 mg Q4H PRN IV NAUSEA AND/OR VOMITING Last adm inistered on 07/23/18at 16:30; Admin Dose 4 MG; Start 07/14/18 at 00:30 Miscellaneous Information (Pending [facility] Order For Wound Care) This patient easley... PRN PRN XX WOUND CARE; Start 07/14/18 at 04:30 Heparin Sodium (Porcine) (Heparin (1000 Units/ml)) 4,000 unit AFTER DIALYSIS CATHETER Last administered on 07/27/18 20:16; Admin Dose 4,000 UNIT; Start 07/17/18 at 12:30 Diagnostic Test (Pha) (Accu-Chek) 1 ea 02 XX Last administered on 08/05/18 01:22; Admin Dose 1 EA; Start 07/19/18 at 02:00 IV Flush (NS 3 ml) 3 ml PER PROTOCOL IV ; Start 07/20/18 at 11:30 Calcium/Vitamin D (Oyster Shell/ Vit-D (500/200)) 1 tab BID PO Last administered on 08/08/18 08:19; Admin Dose 1 TAB; Start 07/20/18 at 21:00 Metoprolol Tartrate (Lopressor) 5 mg Q4H PRN IV HR > 110; Hold if SBP < 100 Last administered on 07/21/18 01:52; Admin Dose 5 MG; Start 07/21/18 at 02:00 Norepinephrine 250 ml @ 1.875 mls/ hr TITRATE IV Last administered on 07/29/18 01:20; Admin Dose 3.75 MLS/HR; Start 07/24/18 at 11:00 Collagenase (Santyl) 1 applic DAILY TOP Last administered on 08/07/18 08:45; Admin Dose 1 APPLIC; Start 07/25/18 at 09:00 Phenylephrine HCl 80 mg/Dextrose 250 ml @ 18.75 mls/ hr TITRATE IV Last admin istered on 08/06/18 04:35; Admin Dose 14.06 MLS/HR; Start 07/24/18 at 20:30 Insulin Aspart (Novolog Insulin Pen) NOVOLOG *MILD* ALGORI... Q4 SC Last administered on 08/08/18 08:29; Admin Dose 1 UNIT; Start 07/24/18 at 21:00 Propofol 100 ml @ 1.851 mls/ hr Q12H IV Last administered on 07/28/18 20:30; Admin Dose 5.553 MLS/HR; Start 07/25/18 at 13:00 Fentanyl 100 ml @ 2.5 mls/hr TITRATE IV Last administered on 08/07/18 17:28; Admin Dose 2.5 MLS/HR; Start 07/26/18 at 11:00 Vancomycin HCl (Vanco Iv Per Pharmacy) VANCOMYCIN PER PHARMACY PER PROTOCOL XX ; Start 07/28/18 at 10:30 Cefepime HCl 50 ml @ 100 mls/hr Q24H IVPB Last administered on 08/07/18 11:49; Admin Dose 100 MLS/HR; Start 07/30/18 at 12:00 Lansoprazole (Prevacid) 30 mg BID@0600,1800 PO Last administered on 08/08/18 05:35; Admin Dose 30 MG; Start 07/30/18 at 18:00 Aspirin (Aspirin) 81 mg DAILY PO Last administered on 08/08/18 08:19; Admin Dose 81 MG; Start 07/30/18 at 11:30 Atorvastatin Calcium (Lipitor) 20 mg HS PO Last administered on 08/07/18 21:06; Admin Dose 20 MG; Start 07/30/18 at 21:00 Midodrine (Proamatine) 10 mg TID@09,13,17 PO Last administered on 08/08/18 08:53; Admin Dose 10 MG; Start 07/30/18 at 13:00 Midazolam HCl 50 ml @ 1 mls/hr TITRATE IV Last administered on 08/07/18 15:26; Admin Dose 1 MLS/HR; Start 08/02/18 at 10:00 Epoetin Derick (Epogen (Esrd)) 3,000 units TuThSa@17 SC Last administered on 08/06/18 16:33; Admin Dose 3,000 UNITS; Start 08/03/18 at 17:00 Levothyroxine Sodium (Synthroid) 100 mcg DAILY@06 PO Last administered on 08/08/18 05:35; Admin Dose 100 MCG; Start 08/03/18 at 06:00 Vancomycin HCl 250 ml @ 125 mls/hr Q96H IVPB Last administered on 08/04/18 12:21; Admin Dose 125 MLS/HR; Start 08/04/18 at 12:00 Metoclopramide HCl (Reglan) 5 mg Q6H PRN IV NAUSEA AND/OR VOMITING; Start 08/05/18 at 10:49 Insulin Glargine (Lantus) 22 units DAILY@0800 SC Last administered on 08/08/18 08:29; Admin Dose 22 UNITS; Start 08/07/18 at 08:00 Insulin Human NPH (Humulin N) 5 unit TID SC Last administered on 08/08/18at 08:28; Admin Dose 5 UNIT; Start 08/06/18 at 13:00 Mupirocin (Bactroban) 1 applic BID TOP Last administered on 08/08/18at 08:20; Admin Dose 1 APPLIC; Start 08/06/18 at 14:00 Hydrocortisone (Solu-Cortef) 25 mg TID IV Last administered on 08/08/18at 08:19; Admin Dose 25 MG; Start 08/07/18 at 09:00 ADAM DUARTE MD Aug 08, 2018 10:22
--- NOTE | 2018-08-08 10:30 | CONS ---
Consult Date/Type/Reason Admit Date/Time Jul 13, 2018 at 21:32 Initial Consult Date Type of Consult Pulmonary Requesting Provider: ADAM DUARTE MD Date/Time of Note DATE: 08/08/18 TIME: 10:27 Subjective Unresponsive. No pressors. Objective Vital Signs Date Temp Pulse Resp B/P (MAP) Pulse Ox O2 O2 Flow FiO2 Time Delivery Rate 08/08/18 88 23 97/41 (59) 96 Mechanical 10:00 Ventilator 08/08/18 30 09:40 08/08/18 97.4 07:00 Intake and Output 08/07/18 08/07/18 08/08/18 1515:00 23:00 07:00 IntakeIntake Total 680 ml 366.75 ml 364.5 ml OutputOutput Total 0 ml 100 ml 225 ml BalanceBalance 680 ml 266.75 ml 139.5 ml Exam PHYSICAL EXAMINATION: GENERAL: Elderly-appearing lady, on vent, unresponsive. VITAL SIGNS: NECK: Supple. No JVD or lymphadenopathy. CARDIAC: S1, S2, no added sounds or murmurs. CHEST: Diminished air entry bilaterally with rales. ABDOMEN: Soft, nontender. No guarding or rebound. EXTREMITIES: No cyanosis, clubbing or edema. NEUROLOGIC: Generalized weakness.Unable to assess. Vent Setting Ventilator Support Mode: AC, VC plus Fraction of Inspired Oxygen pe: 30 Positive End Expiratory Pressu: 5.0 Results/Medications Result Diagram: 08/08/18 0502 08/08/18 0500 Results 24 hrs Laboratory Tests Test 08/07/18 12:55 08/07/18 17:16 08/07/18 19:14 08/07/18 19:34 Bedside Glucose 110 72 62 L Glucose Level 62 #L Test 08/07/18 19:54 08/07/18 20:10 08/07/18 21:09 08/08/18 01:27 Bedside Glucose 126 104 106 129 Test 08/08/18 05:00 08/08/18 05:01 08/08/18 05:02 08/08/18 05:03 Sodium Level 133 L Potassium Level 3.2 L Chloride Level 99 Carbon Dioxide Level 24 Anion Gap 10 Blood Urea Nitrogen 49 #H Creatinine 1.82 H Est Glomerular Filtrat Rate mL/min Glucose Level 117 # Calcium Level 6.9 L Bedside Glucose 140 White Blood Count 17.1 H Red Blood Count 2.17 L Hemoglobin 7.4 L Hematocrit 21.7 L Mean Corpuscular 100.0 Volume Mean Corpuscular 34.1 H Hemoglobin Mean Corpuscular 34.1 Hemoglobin Concent Red Cell 26.6 H Distribution Width Platelet Count 182 Mean Platelet Volume 12.2 H Immature 0.800 H Granulocytes % Neutrophils % 89.0 H Lymphocytes % 3.6 L Monocytes % 6.5 Eosinophils % 0.0 Basophils % 0.1 Nucleated Red Blood 1.9 H Cells % Immature 0.130 H Granulocytes # Neutrophils # 15.2 H Lymphocytes # 0.6 L Monocytes # 1.1 H Eosinophils # 0.0 Basophils # 0.0 Nucleated Red Blood 0.3 H Cells # Phosphorus Level 4.2 Magnesium Level 1.7 Test 08/08/18 07:40 Bedside Glucose 162 Medications Current Medications Multivit/Ca Carb/ B Cmplx/FA/Prenat (Shyann-Raj) 1 tab DAILY PO Last administered on 08/08/18at 08:19; Admin Dose 1 TAB; Start 07/14/18 at 09:00 Tramadol HCl (Ultram) 50 mg TID PRN PO PAIN LEVEL 6-10 Last administered on 07/24/18at 03:35; Admin Dose 50 MG; Start 07/13/18 at 23:30 Acetaminophen (Tylenol Tab) 650 mg Q6H PRN PO MILD PAIN(1-3)OR ELEVATED TEMP; Start 07/13/18 at 23:30 Hydralazine HCl (Apresoline) 20 mg Q6H PRN IV sbp over 170 Last administered on 07/14/18at 11:56; Admin Dose 20 MG; Start 07/13/18 at 23:30 Miscellaneous Information 1 ea NOTE XX ; Start 07/13/18 at 23:30 Glucose (Glutose) 15 gm Q15M PRN PO DECREASED GLUCOSE; Start 07/13/18 at 23:30 Glucose (Glutose) 22.5 gm Q15M PRN PO DECREASED GLUCOSE; Start 07/13/18 at 23:30 Dextrose (D50w Syringe) 25 ml Q15M PRN IV DECREASED GLUCOSE Last administered on 08/07/18at 19:38; Admin Dose 25 ML; Start 07/13/18 at 23:30 Dextrose (D50w Syringe) 50 ml Q15M PRN IV DECREASED GLUCOSE; Start 07/13/18 at 23:30 Glucagon (Glucagen) 1 mg Q15M PRN IM DECREASED GLUCOSE; Start 07/13/18 at 23:30 Glucose (Glutose) 15 gm Q15M PRN BUCCAL DECREASED GLUCOSE; Start 07/13/18 at 23:30 Ondansetron HCl (Zofran Inj) 4 mg Q4H PRN IV NAUSEA AND/OR VOMITING Last administered on 07/23/18 16:30; Admin Dose 4 MG; Start 07/14/18 at 00:30 Miscellaneous Information (Pending Santyl Order For Wound Care) This patient easley... PRN PRN XX WOUND CARE; Start 07/14/18 at 04:30 Heparin Sodium (Porcine) (Heparin (1000 Units/ml)) 4,000 unit AFTER DIALYSIS CATHETER Last administered on 07/27/18 20:16; Admin Dose 4,000 UNIT; Start 07/17/18 at 12:30 Diagnostic Test (Pha) (Accu-Chek) 1 ea 02 XX Last administered on 08/05/18 01:22; Admin Dose 1 EA; Start 07/19/18 at 02:00 IV Flush (NS 3 ml) 3 ml PER PROTOCOL IV ; Start 07/20/18 at 11:30 Calcium/Vitamin D (Oyster Shell/ Vit-D (500/200)) 1 tab BID PO Last administered on 08/08/18 08:19; Admin Dose 1 TAB; Start 07/20/18 at 21:00 Metoprolol Tartrate (Lopressor) 5 mg Q4H PRN IV HR > 110; Hold if SBP < 100 Last administered on 07/21/18 01:52; Admin Dose 5 MG; Start 07/21/18 at 02:00 Norepinephrine 250 ml @ 1.875 mls/ hr TITRATE IV Last administered on 07/29/18 01:20; Admin Dose 3.75 MLS/HR; Start 07/24/18 at 11:00 Collagenase (Santyl) 1 applic DAILY TOP Last administered on 08/07/18 08:45; Admin Dose 1 APPLIC; Start 07/25/18 at 09:00 Phenylephrine HCl 80 mg/Dextrose 250 ml @ 18.75 mls/ hr TITRATE IV Last administered on 08/06/18 04:35; Admin Dose 14.06 MLS/HR; Start 07/24/18 at 20:30 Insulin Aspart (Novolog Insulin Pen) NOVOLOG *MILD* ALGORI... Q4 SC Last administered on 08/08/18 08:29; Admin Dose 1 UNIT; Start 07/24/18 at 21:00 Propofol 100 ml @ 1.851 mls/ hr Q12H IV Last administered on 07/28/18 20:30; Admin Dose 5.553 MLS/HR; Start 07/25/18 at 13:00 Fentanyl 100 ml @ 2.5 mls/hr TITRATE IV Last administered on 08/07/18 17:28; Admin Dose 2.5 MLS/HR; Start 07/26/18 at 11:00 Vancomycin HCl (Vanco Iv Per Pharmacy) VANCOMYCIN PER PHARMACY PER PROTOCOL XX ; Start 07/28/18 at 10:30 Cefepime HCl 50 ml @ 100 mls/hr Q24H IVPB Last administered on 08/07/18 11:49; Admin Dose 100 MLS/HR; Start 07/30/18 at 12:00 Lansoprazole (Prevacid) 30 mg BID@0600,1800 PO Last administered on 08/08/18 05:35; Admin Dose 30 MG; Start 07/30/18 at 18:00 Aspirin (Aspirin) 81 mg DAILY PO Last administered on 08/08/18 08:19; Admin Dose 81 MG; Start 07/30/18 at 11:30 Atorvastatin Calcium (Lipitor) 20 mg HS PO Last administered on 08/07/18 21:06; Admin Dose 20 MG; Start 07/30/18 at 21:00 Midodrine (Proamatine) 10 mg TID@09,13,17 PO Last administered on 08/08/18 08:53; Admin Dose 10 MG; Start 07/30/18 at 13:00 Midazolam HCl 50 ml @ 1 mls/hr TITRATE IV Last administered on 08/07/18 15:26; Admin Dose 1 MLS/HR; Start 08/02/18 at 10:00 Epoetin Derick (Epogen (Esrd)) 3,000 units TuThSa@17 SC Last administered on 08/06/18 16:33; Admin Dose 3,000 UNITS; Start 08/03/18 at 17:00 Levothyroxine Sodium (Synthroid) 100 mcg DAILY@06 PO Last administered on 08/08/18at 05:35; Admin Dose 100 MCG; Start 08/03/18 at 06:00 Vancomycin HCl 250 ml @ 125 mls/hr Q96H IVPB Last administered on 08/04/18at 12:21; Admin Dose 125 MLS/HR; Start 08/04/18 at 12:00 Metoclopramide HCl (Reglan) 5 mg Q6H PRN IV NAUSEA AND/OR VOMITING; Start 08/05/18 at 10:49 Insulin Glargine (Lantus) 22 units DAILY@0800 SC Last administered on 08/08/18 08:29; Admin Dose 22 UNITS; Start 08/07/18 at 08:00 Insulin Human NPH (Humulin N) 5 unit TID SC Last administered on 08/08/18 08:28; Admin Dose 5 UNIT; Start 08/06/18 at 13:00 Mupirocin (Bactroban) 1 applic BID TOP Last administered on 08/08/18 08:20; Admin Dose 1 APPLIC; Start 08/06/18 at 14:00 Hydrocortisone (Solu-Cortef) 25 mg TID IV Last administered on 08/08/18 08:19; Admin Dose 25 MG; Start 08/07/18 at 09:00 Assessment/Plan Hospital Course (Demo Recall) IMPRESSION 1. Cardiopulmonary arrest. Prolonged CPR with ACLS protocol. 2. Multiple cardiopulmonary arrests and prolonged hypotension, now with persistent encephalopathy 3. End-stage renal failure on hemodialysis. 4. Possible aspiration pneumonia. Septic shock. Requiring vasopressor support, increasing pressor requirements persistent right lower lobe infiltrate 5. History of severe peripheral vascular disease. 6. Possible acute GI bleed given acute drop in hemoglobin prior to cardiac arrest 7. Stress dose steroids Plan 1. Vasopressor support as needed. Increased stress dose steroids decrease vasopressor requirements noted 2. Mechanical ventilation pending tracheostomy 3. Broad-spectrum antibiotic coverage for possible aspiration. 4. GI recommendations pending G-tube 5. DVT and GI prophylaxis. 6. decrease steroids. Critical care time 40 minutes. Palliative care consultation and recommendations.Meeting today Prognosis extremely poor would recommend transition to comfort care. DEVAN MIDDLETON MD, [facility] Aug 08, 2018 10:30
--- NOTE | 2018-08-08 11:37 | PN ---
Date/Time of Note Date/Time of Note DATE: 08/08/18 TIME: 11:36 Assessment/Plan Lines/Catheters IV Catheter Type (from Nrsg): Central Line Hernandez in Place (from Nrsg): No Assessment/Plan Assessment/Plan Respiratory failure status post cardiac arrest Family to decide about a possible tracheostomy Subjective 24 Hr Interval Summary Constitutional: improved Pain Control: mild Exam/Review of Systems Vital Signs Vitals Vital Signs Date Temp Pulse Resp B/P (MAP) Pulse Ox O2 O2 Flow FiO2 Time Delivery Rate 08/08/18 84 21 90/28 (48) 98 Mechanical 11:00 Ventilator 08/08/18 30 09:40 08/08/18 97.4 07:00 Intake and Output 08/07/18 08/07/18 08/08/18 1515:00 23:00 07:00 IntakeIntake Total 680 ml 366.75 ml 364.5 ml OutputOutput Total 0 ml 100 ml 225 ml BalanceBalance 680 ml 266.75 ml 139.5 ml Exam ENMT: nl external ears & nose, nl lips & teeth, nl nasal mucosa & septum, mucosa pink and moist Neck: supple, non-tender Respiratory: clear to auscultation, normal air movement Cardiovascular: regular rate and rhythm, nl pulses Gastrointestinal: soft, nl liver, spleen, non-tender Genitourinary - Female: No nl adnexae, No nl external genitalia, No CMT, No CVA tenderness, No uterus, No other Results Result Diagram: 08/08/18 0502 08/08/18 0500 CHALO SOARES MD Aug 08, 2018 11:37
[2018-08-08] MEDS: CEFEPIME 1GM/50 ML IVPB SCH (12:05)
--- NOTE | 2018-08-08 12:22 | CONS ---
Consultation Date/Type/Reason Admit Date/Time Jul 13, 2018 at 21:32 Date/Time of Note DATE: 08/08/18 TIME: 12:22 Hx of Present Illness Dictating a palliative care consultation on patient who is a 78-year-old female in the intensive care unit [facility] July 18, 2018. Patient had an [id number] cardiac arrest and then once again had a second cardiac arrest after admission. Since that time she has had a steady downhill course she still intubated in shock requiring pressors profound fluid and electrolyte abnormalities, history of diabetic retinopathy diabetic nephropathy and most importantly altered mental status presumed secondary to anoxic encephalopathy. She has been seen by multiple appropriate subspecialists medical records of physicians are in agreement that her prognosis is extremely poor. Most recently the patient CT scan shows a new cerebellar infarct. Today I met with for patient's children there is one son who is not available. We reviewed all of patient's outpatient as well as inpatient current major medical problems. All 4 family members where the voice for patient's care however the one son who was not available remains of the opinion that something further recommend on, according to family members Essentially family members who were here had a clear understanding that she would have no quality of life and there is no hope that she would return to her baseline medical condition prior to hospitalization. They are very concerned that she would suffer for the rest of her life if she had a PEG and trach and required admission to a subacute unit. They requested to have a underwriter solicitation director to visit her to have strong spiritual beliefs which do not interfere with her ability to make a decision on compassionate care as compared to continue with current aggressive interventions. At the end of the conversation which was done through an fur mixer operator before family members decided upon comfort measures. I did tell them that they had the right to make that decision but that it would be in her best interest to try and bring the final sibling on board make him understand that there is no hope that his mother will significantly improve. They have decided on comfort measures if he is in agreement to be done tomorrow morning. They will be here tomorrow morning informed medical staff the results of the meeting with their fifth sibling. If every once in agreement we will proceed with comfort measures tomorrow. Past Medical History Home Meds Reported Medications Atorvastatin* (Atorvastatin*) 40 Mg Tablet, 40 MG PO QHS, #30 TAB 07/13/18 Carvedilol* (Carvedilol*) 3.125 Mg Tablet, 3.125 MG PO BID, #60 TAB 07/13/18 Tramadol HCl (Tramadol HCl) 50 Mg Tablet, 50 MG PO TID PRN for PAIN LEVEL 6-10, #90 TAB 07/13/18 Multivit/Ca Carb/B Cmplx/Fa* (Shyann-Raj*) 1 Tab Tab, 1 TAB PO DAILY, TAB 07/13/18 Isosorbide Mononitrate* (Isosorbide Mononitrate*) 60 Mg Tab.er.24h, 60 MG PO DAILY, TAB 07/13/18 Pantoprazole* (Protonix*) 20 Mg Tablet.dr, 20 MG PO DAILY, TAB 07/13/18 Clonidine Hcl* (Clonidine Hcl*) 0.1 Mg Tab, 0.1 MG PO BID, TAB 07/13/18 Aspirin (Aspir-Low) 81 Mg Tablet.dr, 81 MG PO DAILY 07/13/18 Medications Current Medications Multivit/Ca Carb/ B Cmplx/FA/Prenat (Shyann-Raj) 1 tab DAILY PO Last administered on 08/08/18at 08:19; Admin Dose 1 TAB; Start 07/14/18 at 09:00 Tramadol HCl (Ultram) 50 mg TID PRN PO PAIN LEVEL 6-10 Last administered on 07/24/18at 03:35; Admin Dose 50 MG; Start 07/13/18 at 23:30 Acetaminophen (Tylenol Tab) 650 mg Q6H PRN PO MILD PAIN(1-3)OR ELEVATED TEMP; Start 07/13/18 at 23:30 Hydralazine HCl (Apresoline) 20 mg Q6H PRN IV sbp over 170 Last administered on 07/14/18at 11:56; Admin Dose 20 MG; Start 07/13/18 at 23:30 Miscellaneous Information 1 ea NOTE XX ; Start 07/13/18 at 23:30 Glucose (Glutose) 15 gm Q15M PRN PO DECREASED GLUCOSE; Start 07/13/18 at 23:30 Glucose (Glutose) 22.5 gm Q15M PRN PO DECREASED GLUCOSE; Start 07/13/18 at 23:30 Dextrose (D50w Syringe) 25 ml Q15M PRN IV DECREASED GLUCOSE Last administered on 08/07/18 19:38; Admin Dose 25 ML; Start 07/13/18 at 23:30 Dextrose (D50w Syringe) 50 ml Q15M PRN IV DECREASED GLUCOSE; Start 07/13/18 at 23:30 Glucagon (Glucagen) 1 mg Q15M PRN IM DECREASED GLUCOSE; Start 07/13/18 at 23:30 Glucose (Glutose) 15 gm Q15M PRN BUCCAL DECREASED GLUCOSE; Start 07/13/18 at 23:30 Ondansetron HCl (Zofran Inj) 4 mg Q4H PRN IV NAUSEA AND/OR VOMITING Last administered on 07/23/18 16:30; Admin Dose 4 MG; Start 07/14/18 at 00:30 Miscellaneous Information (Pending Santyl Order For Wound Care) This patient ealsey... PRN PRN XX WOUND CARE; Start 07/14/18 at 04:30 Heparin Sodium (Porcine) (Heparin (1000 Units/ml)) 4,000 unit AFTER DIALYSIS CATHETER Last administered on 07/27/18 20:16; Admin Dose 4,000 UNIT; Start 07/17/18 at 12:30 Diagnostic Test (Pha) (Accu-Chek) 1 ea 02 XX Last administered on 08/05/18 01:22; Admin Dose 1 EA; Start 07/19/18 at 02:00 IV Flush (NS 3 ml) 3 ml PER PROTOCOL IV ; Start 07/20/18 at 11:30 Calcium/Vitamin D (Oyster Shell/ Vit-D (500/200)) 1 tab BID PO Last administered on 08/08/18 08:19; Admin Dose 1 TAB; Start 07/20/18 at 21:00 Metoprolol Tartrate (Lopressor) 5 mg Q4H PRN IV HR > 110; Hold if SBP < 100 Last administered on 07/21/18 01:52; Admin Dose 5 MG; Start 07/21/18 at 02:00 Norepinephrine 250 ml @ 1.875 mls/ hr TITRATE IV Last administered on 07/29/18 01:20; Admin Dose 3.75 MLS/HR; Start 07/24/18 at 11:00 Collagenase (Santyl) 1 applic DAILY TOP Last administered on 08/08/18 10:33; Admin Dose 1 APPLIC; Start 07/25/18 at 09:00 Phenylephrine HCl 80 mg/Dextrose 250 ml @ 18.75 mls/ hr TITRATE IV Last administered on 08/06/18 04:35; Admin Dose 14.06 MLS/HR; Start 07/24/18 at 20:30 Insulin Aspart (Novolog Insulin Pen) NOVOLOG *MILD* ALGORI... Q4 SC Last administered on 08/08/18 08:29; Admin Dose 1 UNIT; Start 07/24/18 at 21:00 Propofol 100 ml @ 1.851 mls/ hr Q12H IV Last administered on 07/28/18 20:30; Admin Dose 5.553 MLS/HR; Start 07/25/18 at 13:00 Fentanyl 100 ml @ 2.5 mls/hr TITRATE IV Last administered on 08/07/18 17:28; Admin Dose 2.5 MLS/HR; Start 07/26/18 at 11:00 Vancomycin HCl (Vanco Iv Per Pharmacy) VANCOMYCIN PER PHARMACY PER PROTOCOL XX ; Start 07/28/18 at 10:30 Cefepime HCl 50 ml @ 100 mls/hr Q24H IVPB Last administered on 08/07/18 11:49; Admin Dose 100 MLS/HR; Start 07/30/18 at 12:00 Lansoprazole (Prevacid) 30 mg BID@0600,1800 PO Last administered on 08/08/18 05:35; Admin Dose 30 MG; Start 07/30/18 at 18:00 Aspirin (Aspirin) 81 mg DAILY PO Last administered on 08/08/18 08:19; Admin Dose 81 MG; Start 07/30/18 at 11:30 Atorvastatin Calcium (Lipitor) 20 mg HS PO Last administered on 08/07/18 21:06; Admin Dose 20 MG; Start 07/30/18 at 21:00 Midodrine (Proamatine) 10 mg TID@,,17 PO Last administered on 08/08/18 08:53; Admin Dose 10 MG; Start 07/30/18 at 13:00 Midazolam HCl 50 ml @ 1 mls/hr TITRATE IV Last administered on 08/07/18 15:26; Admin Dose 1 MLS/HR; Start 08/02/18 at 10:00 Epoetin Derick (Epogen (Esrd)) 3,000 units TuThSa@17 SC Last administered on 16:33; Admin Dose 3,000 UNITS; Start 08/03/18 at 17:00 Levothyroxine Sodium (Synthroid) 100 mcg DAILY@06 PO Last administered on 08/08/18 05:35; Admin Dose 100 MCG; Start 08/03/18 at 06:00 Vancomycin HCl 250 ml @ 125 mls/hr Q96H IVPB Last administered on 08/04/18 12:21; Admin Dose 125 MLS/HR; Start 08/04/18 at 12:00 Metoclopramide HCl (Reglan) 5 mg Q6H PRN IV NAUSEA AND/OR VOMITING; Start 08/05/18 at 10:49 Insulin Glargine (Lantus) 22 units DAILY@0800 SC Last administered on 08/08/18 08:29; Admin Dose 22 UNITS; Start 08/07/18 at 08:00 Insulin Human NPH (Humulin N) 5 unit TID SC Last administered on 08/08/18 08:28; Admin Dose 5 UNIT; Start 08/06/18 at 13:00 Mupirocin (Bactroban) 1 applic BID TOP Last administered on 08/08/18 08:20; Admin Dose 1 APPLIC; Start 08/06/18 at 14:00 Hydrocortisone (Solu-Cortef) 25 mg TID IV Last administered on 08/08/18 08:19; Admin Dose 25 MG; Start 08/07/18 at 09:00 Allergies: Coded Allergies: No Known Allergy (Unverified , 07/27/18) Social History Smoking Status: Unknown if ever smoked Exam/Review of Systems Exam Vitals Vital Signs Date Temp Pulse Resp B/P (MAP) Pulse Ox O2 O2 Flow FiO2 Time Delivery Rate 08/08/18 88 23 97/41 (59) 96 Mechanical 10:00 Ventilator 08/08/18 30 09:40 08/08/18 97.4 07:00 Intake and Output 08/07/18 08/07/18 08/08/18 1515:00 23:00 07:00 IntakeIntake Total 680 ml 366.75 ml 364.5 ml OutputOutput Total 0 ml 100 ml 225 ml BalanceBalance 680 ml 266.75 ml 139.5 ml Results Result Diagram: 08/08/18 0502 08/08/18 0500 Results 24hrs Laboratory Tests Test 08/07/18 12:55 08/07/18 17:16 08/07/18 19:14 08/07/18 19:34 Bedside Glucose 110 72 62 L Glucose Level 62 #L Test 08/07/18 19:54 08/07/18 20:10 08/07/18 21:09 08/08/18 01:27 Bedside Glucose 126 104 106 129 Test 08/08/18 05:00 08/08/18 05:01 08/08/18 05:02 08/08/18 05:03 Sodium Level 133 L Potassium Level 3.2 L Chloride Level 99 Carbon Dioxide Level 24 Anion Gap 10 Blood Urea Nitrogen 49 #H Creatinine 1.82 H Est Glomerular Filtrat Rate mL/min Glucose Level 117 # Calcium Level 6.9 L Bedside Glucose 140 White Blood Count 17.1 H Red Blood Count 2.17 L Hemoglobin 7.4 L Hematocrit 21.7 L Mean Corpuscular 100.0 Volume Mean Corpuscular 34.1 H Hemoglobin Mean Corpuscular 34.1 Hemoglobin Concent Red Cell 26.6 H Distribution Width Platelet Count 182 Mean Platelet Volume 12.2 H Immature 0.800 H Granulocytes % Neutrophils % 89.0 H Lymphocytes % 3.6 L Monocytes % 6.5 Eosinophils % 0.0 Basophils % 0.1 Nucleated Red Blood 1.9 H Cells % Immature 0.130 H Granulocytes # Neutrophils # 15.2 H Lymphocytes # 0.6 L Monocytes # 1.1 H Eosinophils # 0.0 Basophils # 0.0 Nucleated Red Blood 0.3 H Cells # Phosphorus Level 4.2 Magnesium Level 1.7 Test 08/08/18 07:40 Bedside Glucose 162 Medications Medication Current Medications Multivit/Ca Carb/ B Cmplx/FA/Prenat (Shyann-Raj) 1 tab DAILY PO Last administered on 08/08/18at 08:19; Admin Dose 1 TAB; Start 07/14/18 at 09:00 Tramadol HCl (Ultram) 50 mg TID PRN PO PAIN LEVEL 6-10 Last administered on 07/24/18at 03:35; Admin Dose 50 MG; Start 07/13/18 at 23:30 Acetaminophen (Tylenol Tab) 650 mg Q6H PRN PO MILD PAIN(1-3)OR ELEVATED TEMP; Start 07/13/18 at 23:30 Hydralazine HCl (Apresoline) 20 mg Q6H PRN IV sbp over 170 Last administered on 07/14/18at 11:56; Admin Dose 20 MG; Start 07/13/18 at 23:30 Miscellaneous Information 1 ea NOTE XX ; Start 07/13/18 at 23:30 Glucose (Glutose) 15 gm Q15M PRN PO DECREASED GLUCOSE; Start 07/13/18 at 23:30 Glucose (Glutose) 22.5 gm Q15M PRN PO DECREASED GLUCOSE; Start 07/13/18 at 23:30 Dextrose (D50w Syringe) 25 ml Q15M PRN IV DECREASED GLUCOSE Last administered on 08/07/18at 19:38; Admin Dose 25 ML; Start 07/13/18 at 23:30 Dextrose (D50w Syringe) 50 ml Q15M PRN IV DECREASED GLUCOSE; Start 07/13/18 at 23:30 Glucagon (Glucagen) 1 mg Q15M PRN IM DECREASED GLUCOSE; Start 07/13/18 at 23:30 Glucose (Glutose) 15 gm Q15M PRN BUCCAL DECREASED GLUCOSE; Start 07/13/18 at 23:30 Ondansetron HCl (Zofran Inj) 4 mg Q4H PRN IV NAUSEA AND/OR VOMITING Last administered on 07/23/18at 16:30; Admin Dose 4 MG; Start 07/14/18 at 00:30 Miscellaneous Information [facility] This patient easley... PRN PRN XX WOUND CARE; Start 07/14/18 at 04:30 Heparin Sodium (Porcine) (Heparin (1000 Units/ml)) 4,000 unit AFTER DIALYSIS CATHETER Last administered on 07/27/18at 20:16; Admin Dose 4,000 UNIT; Start 07/17/18 at 12:30 Diagnostic Test (Pha) (Accu-Chek) 1 ea 02 XX Last administered on 08/05/18at 01:22; Admin Dose 1 EA; Start 07/19/18 at 02:00 IV Flush (NS 3 ml) 3 ml PER PROTOCOL IV ; Start 07/20/18 at 11:30 Calcium/Vitamin D (Oyster Shell/ Vit-D (500/200)) 1 tab BID PO Last administered on 08/08/18at 08:19; Admin Dose 1 TAB; Start 07/20/18 at 21:00 Metoprolol Tartrate (Lopressor) 5 mg Q4H PRN IV HR > 110; Hold if SBP < 100 Last administered on 07/21/18 01:52; Admin Dose 5 MG; Start 07/21/18 at 02:00 Norepinephrine 250 ml @ 1.875 mls/ hr TITRATE IV Last administered on 07/29/18 01:20; Admin Dose 3.75 MLS/HR; Start 07/24/18 at 11:00 Collagenase (Santyl) 1 applic DAILY TOP Last administered on 08/08/18 10:33; Admin Dose 1 APPLIC; Start 07/25/18 at 09:00 Phenylephrine HCl 80 mg/Dextrose 250 ml @ 18.75 mls/ hr TITRATE IV Last administered on 08/06/18 04:35; Admin Dose 14.06 MLS/HR; Start 07/24/18 at 20:30 Insulin Aspart (Novolog Insulin Pen) NOVOLOG *MILD* ALGORI... Q4 SC Last admin istered on 08/08/18 08:29; Admin Dose 1 UNIT; Start 07/24/18 at 21:00 Propofol 100 ml @ 1.851 mls/ hr Q12H IV Last administered on 07/28/18 20:30; Admin Dose 5.553 MLS/HR; Start 07/25/18 at 13:00 Fentanyl 100 ml @ 2.5 mls/hr TITRATE IV Last administered on 08/07/18 17:28; Admin Dose 2.5 MLS/HR; Start 07/26/18 at 11:00 Vancomycin HCl (Vanco Iv Per Pharmacy) VANCOMYCIN PER PHARMACY PER PROTOCOL XX ; Start 07/28/18 at 10:30 Cefepime HCl 50 ml @ 100 mls/hr Q24H IVPB Last administered on 08/07/18 11:49; Admin Dose 100 MLS/HR; Start 07/30/18 at 12:00 Lansoprazole (Prevacid) 30 mg BID@0600,1800 PO Last administered on 08/08/18 05:35; Admin Dose 30 MG; Start 07/30/18 at 18:00 Aspirin (Aspirin) 81 mg DAILY PO Last administered on 08/08/18 08:19; Admin Dose 81 MG; Start 07/30/18 at 11:30 Atorvastatin Calcium (Lipitor) 20 mg HS PO Last administered on 08/07/18 21:06; Admin Dose 20 MG; Start 07/30/18 at 21:00 Midodrine (Proamatine) 10 mg TID@09,13,17 PO Last administered on 08/08/18 08:53; Admin Dose 10 MG; Start 07/30/18 at 13:00 Midazolam HCl 50 ml @ 1 mls/hr TITRATE IV Last administered on 08/07/18 15:26; Admin Dose 1 MLS/HR; Start 08/02/18 at 10:00 Epoetin Derick (Epogen (Esrd)) 3,000 units TuThSa@17 SC Last administered on 08/06/18 16:33; Admin Dose 3,000 UNITS; Start 08/03/18 at 17:00 Levothyroxine Sodium (Synthroid) 100 mcg DAILY@06 PO Last administered on 05:35; Admin Dose 100 MCG; Start 08/03/18 at 06:00 Vancomycin HCl 250 ml @ 125 mls/hr Q96H IVPB Last administered on 08/04/18 12:21; Admin Dose 125 MLS/HR; Start 08/04/18 at 12:00 Metoclopramide HCl (Reglan) 5 mg Q6H PRN IV NAUSEA AND/OR VOMITING; Start 08/05/18 at 10:49 Insulin Glargine (Lantus) 22 units DAILY@0800 SC Last administered on 08/08/18 08:29; Admin Dose 22 UNITS; Start 08/07/18 at 08:00 Insulin Human NPH (Humulin N) 5 unit TID SC Last administered on 08/08/18 08:28; Admin Dose 5 UNIT; Start 08/06/18 at 13:00 Mupirocin (Bactroban) 1 applic BID TOP Last administered on 08/08/18 08:20; Admin Dose 1 APPLIC; Start 08/06/18 at 14:00 Hydrocortisone (Solu-Cortef) 25 mg TID IV Last administered on 08/08/18 08:19; Admin Dose 25 MG; Start 08/07/18 at 09:00 EMELY BERMUDEZ Aug 08, 2018 12:22
[2018-08-08] MEDS: VANCOMYCIN 1 GM 250 ML IVPB SCH (12:34)
--- NOTE | 2018-08-08 12:41 | CONS ---
Assessment/Plan Assessment/Plan Hospital Course (Demo Recall) IMP: 1. Preoperative for LE ORIF-NL EF by echo with mod-sev TR. Lexiscan with NL EF and partially reversible inferior wall defect. Thus patient has no cardiac contraindication to proceeding to OR on current medications but at moderate to high risk. Now post-op s/p ORIF 2.Positive troponin 3.BRadycardia to 40's/stable BP. S Misael- now improved with decrease in dose of clonidine and having short runs of tachycardia/SVT. ? Now in AF s/p code yesterday 4.HOtn-now off summer on midodrine 5.ankle fracture 6.ESRD on HD 7. TR-mod-sev 8. ? sick euthyroid-elevated TSH and Free t4 9. Patient with PEA and VFA this am requiring ACLS and intubation protocol on onset during HD 10. anemia-acute drop. ? where bleeding,internal given abd pain. Now s/p transfusion PRBC's/possible melena overnight 11.PAF- in AF at this time. Reasonable rates on amiodarone 12. Nstemi- downtrending cardiac enzymes significantly 14. hypotension-on summer- s/p repeat echo 07/29 with EF slightly lower but still wnl 50% 15. UTI Recc -ICU -Continue midodrine BP support as necessary and summer as necessary -continue vent support -Continue ASA as tolerated. Not on systemic anticoagulation secondary to anemia/GIB -transfuse PRBC's as necessary -HD as tolerated only -trend cardiac enzymes -Contineu abx's and f/u cx data -ongoing family discussion about direction of care with patient now currently full code Consultation Date/Type/Reason Admit Date/Time Jul 13, 2018 at 21:32 Initial Consult Date 07/16/18 Type of Consult Cardiology Reason for Consultation hypotension Requesting Provider: ADAM DUARTE MD Date/Time of Note DATE: 08/08/18 TIME: 12:39 Exam/Review of Systems Vital Signs Vitals Vital Signs Date Temp Pulse Resp B/P (MAP) Pulse Ox O2 O2 Flow FiO2 Time Delivery Rate 08/08/18 97.3 93 25 75/27 (43) 96 Mechanical 12:00 Ventilator 08/08/18 30 11:40 Intake and Output 08/07/18 08/07/18 08/08/18 1515:00 23:00 07:00 IntakeIntake Total 680 ml 366.75 ml 364.5 ml OutputOutput Total 0 ml 100 ml 225 ml BalanceBalance 680 ml 266.75 ml 139.5 ml Exam Exam Review of Systems: CONSTITUTIONAL: No fevers, chills. PULMONARY: No sob CARDIOVASCULAR: No chest pain/palpitations GASTROINTESTINAL: No nausea/vomiting. GENITOURINARY: No hematuria/dysuria. MUSCULOSKELETAL: No myagias/arthalgias. PSYCHIATRIC: The patient denies depression. NEUROLOGIC: No weakness Constitutional: other (encepohalopathic) Psych: no complaints Head: normocephalic ENMT: mucosa pink and moist Neck: supple, jvd (9 cm water) Respiratory: diminished breath sounds Cardiovascular: regular rate and rhythm Gastrointestinal: soft, non-tender Musculoskeletal: muscle weakness (generalized ) Extremities: edema (none) Labs Result Diagram: 08/08/18 0502 08/08/18 0500 Results 24hrs Laboratory Tests Test 08/07/18 12:55 08/07/18 17:16 08/07/18 19:14 08/07/18 19:34 Bedside Glucose 110 72 62 L Glucose Level 62 #L Test 08/07/18 19:54 08/07/18 20:10 08/07/18 21:09 08/08/18 01:27 Bedside Glucose 126 104 106 129 Test 08/08/18 05:00 08/08/18 05:01 08/08/18 05:02 08/08/18 05:03 Sodium Level 133 L Potassium Level 3.2 L Chloride Level 99 Carbon Dioxide Level 24 Anion Gap 10 Blood Urea Nitrogen 49 #H Creatinine 1.82 H Est Glomerular Filtrat Rate mL/min Glucose Level 117 # Calcium Level 6.9 L Bedside Glucose 140 White Blood Count 17.1 H Red Blood Count 2.17 L Hemoglobin 7.4 L Hematocrit 21.7 L Mean Corpuscular 100.0 Volume Mean Corpuscular 34.1 H Hemoglobin Mean Corpuscular 34.1 Hemoglobin Concent Red Cell 26.6 H Distribution Width Platelet Count 182 Mean Platelet Volume 12.2 H Immature 0.800 H Granulocytes % Neutrophils % 89.0 H Lymphocytes % 3.6 L Monocytes % 6.5 Eosinophils % 0.0 Basophils % 0.1 Nucleated Red Blood 1.9 H Cells % Immature 0.130 H Granulocytes # Neutrophils # 15.2 H Lymphocytes # 0.6 L Monocytes # 1.1 H Eosinophils # 0.0 Basophils # 0.0 Nucleated Red Blood 0.3 H Cells # Phosphorus Level 4.2 Magnesium Level 1.7 Test 08/08/18 07:40 Bedside Glucose 162 Medications Medications Current Medications Multivit/Ca Carb/ B Cmplx/FA/Prenat (Shyann-Raj) 1 tab DAILY PO Last administered on 08/08/18at 08:19; Admin Dose 1 TAB; Start 07/14/18 at 09:00 Tramadol HCl (Ultram) 50 mg TID PRN PO PAIN LEVEL 6-10 Last administered on 07/24/18at 03:35; Admin Dose 50 MG; Start 07/13/18 at 23:30 Acetaminophen (Tylenol Tab) 650 mg Q6H PRN PO MILD PAIN(1-3)OR ELEVATED TEMP; Start 07/13/18 at 23:30 Hydralazine HCl (Apresoline) 20 mg Q6H PRN IV sbp over 170 Last administered on 07/14/18at 11:56; Admin Dose 20 MG; Start 07/13/18 at 23:30 Miscellaneous Information 1 ea NOTE XX ; Start 07/13/18 at 23:30 Glucose (Glutose) 15 gm Q15M PRN PO DECREASED GLUCOSE; Start 07/13/18 at 23:30 Glucose (Glutose) 22.5 gm Q15M PRN PO DECREASED GLUCOSE; Start 07/13/18 at 23:30 Dextrose (D50w Syringe) 25 ml Q15M PRN IV DECREASED GLUCOSE Last administered on 08/07/18at 19:38; Admin Dose 25 ML; Start 07/13/18 at 23:30 Dextrose (D50w Syringe) 50 ml Q15M PRN IV DECREASED GLUCOSE; Start 07/13/18 at 23:30 Glucagon (Glucagen) 1 mg Q15M PRN IM DECREASED GLUCOSE; Start 07/13/18 at 23:30 Glucose (Glutose) 15 gm Q15M PRN BUCCAL DECREASED GLUCOSE; Start 07/13/18 at 23:30 Ondansetron HCl (Zofran Inj) 4 mg Q4H PRN IV NAUSEA AND/OR VOMITING Last administered on 07/23/18at 16:30; Admin Dose 4 MG; Start 07/14/18 at 00:30 Miscellaneous Information (Pending Santyl Order For Wound Care) This patient easley... PRN PRN XX WOUND CARE; Start 07/14/18 at 04:30 Heparin Sodium (Porcine) (Heparin (1000 Units/ml)) 4,000 unit AFTER DIALYSIS CATHETER Last administered on 07/27/18 20:16; Admin Dose 4,000 UNIT; Start 07/17/18 at 12:30 Diagnostic Test (Pha) (Accu-Chek) 1 ea 02 XX Last administered on 08/05/18 01:22; Admin Dose 1 EA; Start 07/19/18 at 02:00 IV Flush (NS 3 ml) 3 ml PER PROTOCOL IV ; Start 07/20/18 at 11:30 Calcium/Vitamin D (Oyster Shell/ Vit-D (500/200)) 1 tab BID PO Last administered on 08/08/18 08:19; Admin Dose 1 TAB; Start 07/20/18 at 21:00 Metoprolol Tartrate (Lopressor) 5 mg Q4H PRN IV HR > 110; Hold if SBP < 100 Last administered on 07/21/18 01:52; Admin Dose 5 MG; Start 07/21/18 at 02:00 Norepinephrine 250 ml @ 1.875 mls/ hr TITRATE IV Last administered on 07/29/18 01:20; Admin Dose 3.75 MLS/HR; Start 07/24/18 at 11:00 Collagenase (Santyl) 1 applic DAILY TOP Last administered on 08/08/18 10:33; Admin Dose 1 APPLIC; Start 07/25/18 at 09:00 Phenylephrine HCl 80 mg/Dextrose 250 ml @ 18.75 mls/ hr TITRATE IV Last administered on 08/06/18 04:35; Admin Dose 14.06 MLS/HR; Start 07/24/18 at 20:30 Insulin Aspart (Novolog Insulin Pen) NOVOLOG *MILD* ALGORI... Q4 SC Last administered on 08/08/18 08:29; Admin Dose 1 UNIT; Start 07/24/18 at 21:00 Propofol 100 ml @ 1.851 mls/ hr Q12H IV Last administered on 07/28/18 20:30; Admin Dose 5.553 MLS/HR; Start 07/25/18 at 13:00 Fentanyl 100 ml @ 2.5 mls/hr TITRATE IV Last administered on 08/07/18 17:28; Admin Dose 2.5 MLS/HR; Start 07/26/18 at 11:00 Vancomycin HCl (Vanco Iv Per Pharmacy) VANCOMYCIN PER PHARMACY PER PROTOCOL XX ; Start 07/28/18 at 10:30 Cefepime HCl 50 ml @ 100 mls/hr Q24H IVPB Last administered on 08/08/18 12:05; Admin Dose 100 MLS/HR; Start 07/30/18 at 12:00 Lansoprazole (Prevacid) 30 mg BID@0600,1800 PO Last administered on 08/08/18 05:35; Admin Dose 30 MG; Start 07/30/18 at 18:00 Aspirin (Aspirin) 81 mg DAILY PO Last administered on 08/08/18 08:19; Admin Dose 81 MG; Start 07/30/18 at 11:30 Atorvastatin Calcium (Lipitor) 20 mg HS PO Last administered on 08/07/18 21:06; Admin Dose 20 MG; Start 07/30/18 at 21:00 Midodrine (Proamatine) 10 mg TID@09,13,17 PO Last administered on 08/08/18 08:53; Admin Dose 10 MG; Start 07/30/18 at 13:00 Midazolam HCl 50 ml @ 1 mls/hr TITRATE IV Last administered on 08/07/18 15:26; Admin Dose 1 MLS/HR; Start 08/02/18 at 10:00 Epoetin Derick (Epogen (Esrd)) 3,000 units TuThSa@17 SC Last administered on 08/06/18 16:33; Admin Dose 3,000 UNITS; Start 08/03/18 at 17:00 Levothyroxine Sodium (Synthroid) 100 mcg DAILY@06 PO Last administered on 08/08/18 05:35; Admin Dose 100 MCG; Start 08/03/18 at 06:00 Vancomycin HCl 250 ml @ 125 mls/hr Q96H IVPB Last administered on 08/08/18 12:34; Admin Dose 125 MLS/HR; Start 08/04/18 at 12:00 Metoclopramide HCl (Reglan) 5 mg Q6H PRN IV NAUSEA AND/OR VOMITING; Start 08/05/18 at 10:49 Insulin Glargine (Lantus) 22 units DAILY@0800 SC Last administered on 08/08/18 08:29; Admin Dose 22 UNITS; Start 08/07/18 at 08:00 Insulin Human NPH (Humulin N) 5 unit TID SC Last administered on 08/08/18 08:28; Admin Dose 5 UNIT; Start 08/06/18 at 13:00 Mupirocin (Bactroban) 1 applic BID TOP Last administered on 08/08/18 08:20; Admin Dose 1 APPLIC; Start 08/06/18 at 14:00 Hydrocortisone (Solu-Cortef) 25 mg TID IV Last administered on 08/08/18 08:19; Admin Dose 25 MG; Start 08/07/18 at 09:00 JUSTICE HARRISON Aug 08, 2018 12:41
[2018-08-08] MEDS ORDERED: POTASSIUM CHLORIDE (SR) 20 MEQ TAB PO STA (14:27)
--- NOTE | 2018-08-08 15:44 | CONS ---
Assessment/Plan Assessment/Plan Hospital Course (Demo Recall) No acute changes overnight patient remains intubated, unresponsive, on Levophed drip she is oozing blood from her left femoral triple-lumen catheter family is at bedside she is afebrile WBC 17.1 H&H 7.1 and 21.7 platelets 182 neutrophils 89 Microbiology: Blood cultures remain negative sputum culture growing Johnna albicans urine culture grew enterococcus species on July 24 Antimicrobials: Vancomycin cefepime Indwelling: Endotracheal tube NG tube right chest permacath femoral triple-lumen catheter, Hernandez catheter, rectal tube Physical examination: Chronically ill-appearing elderly woman who is intubated in no distress. Head atraumatic normocephalic sclera nonicteric. Neck is supple. Chest rise symmetrical, breath sounds diminished bases. Heart: S1-S2. Abdomen soft bowel sounds hypoactive. Extremities with right lower extremity in a cast patient has left below-knee amputation. Skin: Positive for anasarca, mottled sacral excoriation Assessment: 1. Severe sepsis with shock 2. UTI 3. Diarrhea, C. difficile negative 4. Acute hypoxemic respiratory failure, possible aspiration pneumonia 5. Encephalopathy status post cardiopulmonary arrest with prolonged CPR and ACLS protocol 6. End-stage renal disease, hemodialysis dependent 7. Acute cerebellar infarcts, neurology on case 8. MRSA colonization Plan: Remains unchanged, add fluconazole, continue present care Consultation Date/Type/Reason Admit Date/Time Jul 13, 2018 at 21:32 Initial Consult Date id Requesting Provider: ADAM DUARTE MD Date/Time of Note DATE: 08/08/18 TIME: 15:43 Exam/Review of Systems Exam Vitals Vital Signs Date Temp Pulse Resp B/P (MAP) Pulse Ox O2 O2 Flow FiO2 Time Delivery Rate 08/08/18 81 22 125/34 97 Mechanical 15:15 (64) Ventilator 08/08/18 97.3 12:00 08/08/18 30 11:40 Intake and Output 08/07/18 08/07/18 08/08/18 1515:00 23:00 07:00 IntakeIntake Total 680 ml 366.75 ml 364.5 ml OutputOutput Total 0 ml 100 ml 225 ml BalanceBalance 680 ml 266.75 ml 139.5 ml Results Result Diagram: 08/08/18 0502 08/08/18 0500 Results 24hrs Laboratory Tests Test 08/07/18 17:16 2/27/19 19:14 08/07/18 19:34 08/07/18 19:54 Bedside Glucose 72 62 L 126 Glucose Level 62 #L Test 08/07/18 20:10 08/07/18 21:09 08/08/18 01:27 08/08/18 05:00 Bedside Glucose 104 106 129 Sodium Level 133 L Potassium Level 3.2 L Chloride Level 99 Carbon Dioxide Level 24 Anion Gap 10 Blood Urea Nitrogen 49 #H Creatinine 1.82 H Est Glomerular Filtrat Rate mL/min Glucose Level 117 # Calcium Level 6.9 L Test 08/08/18 05:01 08/08/18 05:02 08/08/18 05:03 08/08/18 07:40 Bedside Glucose 140 162 White Blood Count 17.1 H Red Blood Count 2.17 L Hemoglobin 7.4 L Hematocrit 21.7 L Mean Corpuscular 100.0 Volume Mean Corpuscular 34.1 H Hemoglobin Mean Corpuscular 34.1 Hemoglobin Concent Red Cell 26.6 H Distribution Width Platelet Count 182 Mean Platelet Volume 12.2 H Immature 0.800 H Granulocytes % Neutrophils % 89.0 H Lymphocytes % 3.6 L Monocytes % 6.5 Eosinophils % 0.0 Basophils % 0.1 Nucleated Red Blood 1.9 H Cells % Immature 0.130 H Granulocytes # Neutrophils # 15.2 H Lymphocytes # 0.6 L Monocytes # 1.1 H Eosinophils # 0.0 Basophils # 0.0 Nucleated Red Blood 0.3 H Cells # Phosphorus Level 4.2 Magnesium Level 1.7 Test 08/08/18 12:37 Bedside Glucose 192 Medications Medication Current Medications Multivit/Ca Carb/ B Cmplx/FA/Prenat (Shyann-Raj) 1 tab DAILY PO Last administered on 08/08/18at 08:19; Admin Dose 1 TAB; Start 07/14/18 at 09:00 Tramadol HCl (Ultram) 50 mg TID PRN PO PAIN LEVEL 6-10 Last administered on 07/24/18at 03:35; Admin Dose 50 MG; Start 07/13/18 at 23:30 Acetaminophen (Tylenol Tab) 650 mg Q6H PRN PO MILD PAIN(1-3)OR ELEVATED TEMP; Start 07/13/18 at 23:30 Hydralazine HCl (Apresoline) 20 mg Q6H PRN IV sbp over 170 Last administered on 07/14/18at 11:56; Admin Dose 20 MG; Start 07/13/18 at 23:30 Miscellaneous Information 1 ea NOTE XX ; Start 07/13/18 at 23:30 Glucose (Glutose) 15 gm Q15M PRN PO DECREASED GLUCOSE; Start 07/13/18 at 23:30 Glucose (Glutose) 22.5 gm Q15M PRN PO DECREASED GLUCOSE; Start 07/13/18 at 23:30 Dextrose (D50w Syringe) 25 ml Q15M PRN IV DECREASED GLUCOSE Last administered on 08/07/18at 19:38; Admin Dose 25 ML; Start 07/13/18 at 23:30 Dextrose (D50w Syringe) 50 ml Q15M PRN IV DECREASED GLUCOSE; Start 07/13/18 at 23:30 Glucagon (Glucagen) 1 mg Q15M PRN IM DECREASED GLUCOSE; Start 07/13/18 at 23:30 Glucose (Glutose) 15 gm Q15M PRN BUCCAL DECREASED GLUCOSE; Start 07/13/18 at 23:30 Ondansetron HCl (Zofran Inj) 4 mg Q4H PRN IV NAUSEA AND/OR VOMITING Last administered on 07/23/18at 16:30; Admin Dose 4 MG; Start 07/14/18 at 00:30 Miscellaneous Information (Pending [facility] Order For Wound Care) This patient easley... PRN PRN XX WOUND CARE; Start 07/14/18 at 04:30 Heparin Sodium (Porcine) (Heparin (1000 Units/ml)) 4,000 unit AFTER DIALYSIS CATHETER Last administered on 07/27/18at 20:16; Admin Dose 4,000 UNIT; Start 07/17/18 at 12:30 Diagnostic Test (Pha) (Accu-Chek) 1 ea 02 XX Last administered on 08/05/18at 01:22; Admin Dose 1 EA; Start 07/19/18 at 02:00 IV Flush (NS 3 ml) 3 ml PER PROTOCOL IV ; Start 07/20/18 at 11:30 Calcium/Vitamin D (Oyster Shell/ Vit-D (500/200)) 1 tab BID PO Last administered on 08/08/18at 08:19; Admin Dose 1 TAB; Start 07/20/18 at 21:00 Metoprolol Tartrate (Lopressor) 5 mg Q4H PRN IV HR > 110; Hold if SBP < 100 Last administered on 07/21/18 01:52; Admin Dose 5 MG; Start 07/21/18 at 02:00 Norepinephrine 250 ml @ 1.875 mls/ hr TITRATE IV Last administered on 07/29/18 01:20; Admin Dose 3.75 MLS/HR; Start 07/24/18 at 11:00 Collagenase (Santyl) 1 applic DAILY TOP Last administered on 08/08/18 10:33; Admin Dose 1 APPLIC; Start 07/25/18 at 09:00 Phenylephrine HCl 80 mg/Dextrose 250 ml @ 18.75 mls/ hr TITRATE IV Last administered on 08/06/18 04:35; Admin Dose 14.06 MLS/HR; Start 07/24/18 at 20:30 Insulin Aspart (Novolog Insulin Pen) NOVOLOG *MILD* ALGORI... Q4 SC Last administered on 08/08/18 12:44; Admin Dose 2 UNIT; Start 07/24/18 at 21:00 Propofol 100 ml @ 1.851 mls/ hr Q12H IV Last administered on 07/28/18 20:30; Admin Dose 5.553 MLS/HR; Start 07/25/18 at 13:00 Fentanyl 100 ml @ 2.5 mls/hr TITRATE IV Last administered on 08/07/18 17:28; Admin Dose 2.5 MLS/HR; Start 07/26/18 at 11:00 Vancomycin HCl (Vanco Iv Per Pharmacy) VANCOMYCIN PER PHARMACY PER PROTOCOL XX ; Start 07/28/18 at 10:30 Cefepime HCl 50 ml @ 100 mls/hr Q24H IVPB Last administered on 08/08/18 12:05; Admin Dose 100 MLS/HR; Start 07/30/18 at 12:00 Lansoprazole (Prevacid) 30 mg BID@0600,1800 PO Last administered on 08/08/18 05:35; Admin Dose 30 MG; Start 07/30/18 at 18:00 Aspirin (Aspirin) 81 mg DAILY PO Last administered on 08/08/18 08:19; Admin Dose 81 MG; Start 07/30/18 at 11:30 Atorvastatin Calcium (Lipitor) 20 mg HS PO Last administered on 08/07/18 21:06; Admin Dose 20 MG; Start 07/30/18 at 21:00 Midodrine (Proamatine) 10 mg TID@09,13,17 PO Last administered on 08/08/18 13:05; Admin Dose 10 MG; Start 07/30/18 at 13:00 Midazolam HCl 50 ml @ 1 mls/hr TITRATE IV Last administered on 08/07/18 15:26; Admin Dose 1 MLS/HR; Start 08/02/18 at 10:00 Epoetin Derick (Epogen (Esrd)) 3,000 units TuThSa@17 SC Last administered on 08/06/18 16:33; Admin Dose 3,000 UNITS; Start 08/03/18 at 17:00 Levothyroxine Sodium (Synthroid) 100 mcg DAILY@06 PO Last administered on 08/08/18 05:35; Admin Dose 100 MCG; Start 08/03/18 at 06:00 Vancomycin HCl 250 ml @ 125 mls/hr Q96H IVPB Last administered on 08/08/18 12 :34; Admin Dose 125 MLS/HR; Start 08/04/18 at 12:00 Metoclopramide HCl (Reglan) 5 mg Q6H PRN IV NAUSEA AND/OR VOMITING; Start 08/05/18 at 10:49 Insulin Glargine (Lantus) 22 units DAILY@0800 SC Last administered on 08/08/18 08:29; Admin Dose 22 UNITS; Start 08/07/18 at 08:00 Insulin Human NPH (Humulin N) 5 unit TID SC Last administered on 08/08/18 12:45; Admin Dose 5 UNIT; Start 08/06/18 at 13:00 Mupirocin (Bactroban) 1 applic BID TOP Last administered on 08/08/18 08:20; Admin Dose 1 APPLIC; Start 08/06/18 at 14:00 Hydrocortisone (Solu-Cortef) 25 mg TID IV Last administered on 08/08/18 12:42; Admin Dose 25 MG; Start 08/07/18 at 09:00 INES ALMODOVAR NP Aug 08, 2018 15:44
[2018-08-08] MEDS: FLUCONAZOLE 100 MG TAB PO SCH (17:02)
[2018-08-08] MEDS: PHENYLephrine 80 MG in DEXTROSE 5% 242 ML IV SCH (17:05)
[2018-08-08] MEDS: EPOETIN 3000 UNITS/1 ML INJ (ESRD) SC SCH (17:55)
--- NOTE | 2018-08-08 19:05 | CONS ---
Assessment/Plan Assessment/Plan Assessment/Plan (Daily) Hospital Course (Demo Recall) 78 yo female presented in cardiac arrest with prolonged ACLS Interval hx: Overnight pt continues to have tube feeds from mouth and nose when laid flat. No residuals noted. No coughing or gagging noted. Residuals this am are 10 cc of tube feeds. The content coming from her mouth when laid flat is pale beige, slightly tinged brown. She is only on phenylephrine gtt now. WBC are trending up. hgb 9.0. Neurology feels pt has a poor prognosis and discussed with family. Dr. Hernandez will have family meeting today. 1. Anemia, rule out gastrointestinal bleeding. -concern for GI bleed due to drop in H/H prior to cardiac arrest. -per RN bm was brown with potentially old melena, no active bleeding -FOB positive 2. Status post pulseless electrical activity period and cardiac arrest. 3. Ventilator-dependent respiratory failure. 4. End-stage renal disease, on dialysis. 5. 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 6. left aka 7. Ankle fracture. 8. Cirrhosis of liver 9. Gastroparesis 10. Multiple decubitus ulcers on buttocks and coccyx. 11. Enterococcus in urine Plan: Family meeting today. Please let us know if patient will need PEG Aspiration precautions Full code Monitor HH and replace as necessary. Final decision will be made by the family on Sunday or Sunday for possible terminal extubation Consultation Date/Type/Reason Admit Date/Time Jul 13, 2018 at 21:32 Initial Consult Date Requesting Provider: ADAM HERNANDEZ MD Date/Time of Note DATE: 08/08/18 TIME: 19:04 24 HR Interval Summary Subjective hx not possible: pt non-verbal, pt critical status Exam/Review of Systems Exam Vitals Vital Signs Date Temp Pulse Resp B/P (MAP) Pulse Ox O2 O2 Flow FiO2 Time Delivery Rate 08/08/18 76 16 107/31 99 Mechanical 19:00 (56) Ventilator 08/08/18 30 17:48 08/08/18 97.6 16:00 Intake and Output 08/07/18 08/07/18 08/08/18 1414:59 22:59 06:59 IntakeIntake Total 680 ml 328.25 ml 368.0 ml OutputOutput Total 0 ml 100 ml 225 ml BalanceBalance 680 ml 228.25 ml 143.0 ml Constitutional: non-verbal Cardiovascular: bruits Musculoskeletal: nl extremities to inspection, nl gait and stance Neurological: unresponsive Results Result Diagram: 08/08/18 0502 08/08/18 0500 Results 24hrs Laboratory Tests Test 08/07/18 19:14 08/07/18 19:34 08/07/18 19:54 08/07/18 20:10 Glucose Level 62 #L Bedside Glucose 62 L 126 104 Test 08/07/18 21:09 08/08/18 01:27 08/08/18 05:00 08/08/18 05:01 Bedside Glucose 106 129 140 Sodium Level 133 L Potassium Level 3.2 L Chloride Level 99 Carbon Dioxide Level 24 Anion Gap 10 Blood Urea Nitrogen 49 #H Creatinine 1.82 H Est Glomerular Filtrat Rate mL/min Glucose Level 117 # Calcium Level 6.9 L Test 08/08/18 05:02 08/08/18 05:03 08/08/18 07:40 08/08/18 12:37 White Blood Count 17.1 H Red Blood Count 2.17 L Hemoglobin 7.4 L Hematocrit 21.7 L Mean Corpuscular 100.0 Volume Mean Corpuscular 34.1 H Hemoglobin Mean Corpuscular 34.1 Hemoglobin Concent Red Cell 26.6 H Distribution Width Platelet Count 182 Mean Platelet Volume 12.2 H Immature 0.800 H Granulocytes % Neutrophils % 89.0 H Lymphocytes % 3.6 L Monocytes % 6.5 Eosinophils % 0.0 Basophils % 0.1 Nucleated Red Blood 1.9 H Cells % Immature 0.130 H Granulocytes # Neutrophils # 15.2 H Lymphocytes # 0.6 L Monocytes # 1.1 H Eosinophils # 0.0 Basophils # 0.0 Nucleated Red Blood 0.3 H Cells # Phosphorus Level 4.2 Magnesium Level 1.7 Bedside Glucose 162 192 Test 08/08/18 17:04 Bedside Glucose 180 Medications Medication Current Medications Multivit/Ca Carb/ B Cmplx/FA/Prenat (Shyann-Raj) 1 tab DAILY PO Last administe red on 08/08/18at 08:19; Admin Dose 1 TAB; Start 07/14/18 at 09:00 Tramadol HCl (Ultram) 50 mg TID PRN PO PAIN LEVEL 6-10 Last administered on 07/24/18at 03:35; Admin Dose 50 MG; Start 07/13/18 at 23:30 Acetaminophen (Tylenol Tab) 650 mg Q6H PRN PO MILD PAIN(1-3)OR ELEVATED TEMP; Start 07/13/18 at 23:30 Hydralazine HCl (Apresoline) 20 mg Q6H PRN IV sbp over 170 Last administered on 07/14/18at 11:56; Admin Dose 20 MG; Start 07/13/18 at 23:30 Miscellaneous Information 1 ea NOTE XX ; Start 07/13/18 at 23:30 Glucose (Glutose) 15 gm Q15M PRN PO DECREASED GLUCOSE; Start 07/13/18 at 23:30 Glucose (Glutose) 22.5 gm Q15M PRN PO DECREASED GLUCOSE; Start 07/13/18 at 23:30 Dextrose (D50w Syringe) 25 ml Q15M PRN IV DECREASED GLUCOSE Last administered on 08/07/18at 19:38; Admin Dose 25 ML; Start 07/13/18 at 23:30 Dextrose (D50w Syringe) 50 ml Q15M PRN IV DECREASED GLUCOSE; Start 07/13/18 at 23:30 Glucagon (Glucagen) 1 mg Q15M PRN IM DECREASED GLUCOSE; Start 07/13/18 at 23:30 Glucose (Glutose) 15 gm Q15M PRN BUCCAL DECREASED GLUCOSE; Start 07/13/18 at 23:30 Ondansetron HCl (Zofran Inj) 4 mg Q4H PRN IV NAUSEA AND/OR VOMITING Last administered on 07/23/18at 16:30; Admin Dose 4 MG; Start 07/14/18 at 00:30 Miscellaneous Information (Pending [facility] Order For Wound Care) This patient easley... PRN PRN XX WOUND CARE; Start 07/14/18 at 04:30 Heparin Sodium (Porcine) (Heparin (1000 Units/ml)) 4,000 unit AFTER DIALYSIS CATHETER Last administered on 07/27/18at 20:16; Admin Dose 4,000 UNIT; Start 07/17/18 at 12:30 Diagnostic Test (Pha) (Accu-Chek) 1 ea 02 XX Last administered on 08/05/18at 01:22; Admin Dose 1 EA; Start 07/19/18 at 02:00 IV Flush (NS 3 ml) 3 ml PER PROTOCOL IV ; Start 07/20/18 at 11:30 Calcium/Vitamin D (Oyster Shell/ Vit-D (500/200)) 1 tab BID PO Last administered on 08/08/18 08:19; Admin Dose 1 TAB; Start 07/20/18 at 21:00 Metoprolol Tartrate (Lopressor) 5 mg Q4H PRN IV HR > 110; Hold if SBP < 100 Last administered on 07/21/18 01:52; Admin Dose 5 MG; Start 07/21/18 at 02:00 Norepinephrine 250 ml @ 1.875 mls/ hr TITRATE IV Last administered on 07/29/18 01:20; Admin Dose 3.75 MLS/HR; Start 07/24/18 at 11:00 Collagenase (Santyl) 1 applic DAILY TOP Last administered on 08/08/18 10:33; Admin Dose 1 APPLIC; Start 07/25/18 at 09:00 Phenylephrine HCl 80 mg/Dextrose 250 ml @ 18.75 mls/ hr TITRATE IV Last administered on 08/08/18 17:05; Admin Dose 11.25 MLS/HR; Start 07/24/18 at 20:30 Insulin Aspart (Novolog Insulin Pen) NOVOLOG *MILD* ALGORI... Q4 SC Last administered on 08/08/18 17:06; Admin Dose 1 UNIT; Start 07/24/18 at 21:00 Propofol 100 ml @ 1.851 mls/ hr Q12H IV Last administered on 07/28/18 20:30; Admin Dose 5.553 MLS/HR; Start 07/25/18 at 13:00 Fentanyl 100 ml @ 2.5 mls/hr TITRATE IV Last administered on 08/07/18 17:28; Admin Dose 2.5 MLS/HR; Start 07/26/18 at 11:00 Vancomycin HCl (Vanco Iv Per Pharmacy) VANCOMYCIN PER PHARMACY PER PROTOCOL XX ; Start 07/28/18 at 10:30 Cefepime HCl 50 ml @ 100 mls/hr Q24H IVPB Last administered on 08/08/18 12:05; Admin Dose 100 MLS/HR; Start 07/30/18 at 12:00 Lansoprazole (Prevacid) 30 mg BID@0600,1800 PO Last administered on 08/08/18 17:54; Admin Dose 30 MG; Start 07/30/18 at 18:00 Aspirin (Aspirin) 81 mg DAILY PO Last administered on 08/08/18 08:19; Admin Dose 81 MG; Start 07/30/18 at 11:30 Atorvastatin Calcium (Lipitor) 20 mg HS PO Last administered on 08/07/18 21:06; Admin Dose 20 MG; Start 07/30/18 at 21:00 Midodrine (Proamatine) 10 mg TID@09,13,17 PO Last administered on 08/08/18 17:02; Admin Dose 10 MG; Start 07/30/18 at 13:00 Midazolam HCl 50 ml @ 1 mls/hr TITRATE IV Last administered on 08/07/18 15:26; Admin Dose 1 MLS/HR; Start 08/02/18 at 10:00 Epoetin Derick (Epogen (Esrd)) 3,000 units TuThSa@17 SC Last administered on 08/08/18 17:55; Admin Dose 3,000 UNITS; Start 08/03/18 at 17:00 Levothyroxine Sodium (Synthroid) 100 mcg DAILY@06 PO Last administered on 08/08/18 05:35; Admin Dose 100 MCG; Start 08/03/18 at 06:00 Vancomycin HCl 250 ml @ 125 mls/hr Q96H IVPB Last administered on 08/08/18 12:34; Admin Dose 125 MLS/HR; Start 08/04/18 at 12:00 Metoclopramide HCl (Reglan) 5 mg Q6H PRN IV NAUSEA AND/OR VOMITING; Start 08/05/18 at 10:49 Insulin Glargine (Lantus) 22 units DAILY@0800 SC Last administered on 08/08/18 08:29; Admin Dose 22 UNITS; Start 08/07/18 at 08:00 Insulin Human NPH (Humulin N) 5 unit TID SC Last administered on 08/08/18 12:45; Admin Dose 5 UNIT; Start 08/06/18 at 13:00 Mupirocin (Bactroban) 1 applic BID TOP Last administered on 08/08/18 08:20; Admin Dose 1 APPLIC; Start 08/06/18 at 14:00 Hydrocortisone (Solu-Cortef) 25 mg TID IV Last administered on 08/08/18 12:42; Admin Dose 25 MG; Start 08/07/18 at 09:00 Fluconazole (Diflucan) 100 mg DAILY PO Last administered on 08/08/18at 17:02; Admin Dose 100 MG; Start 08/08/18 at 16:00 GLORIA TURNER MD Aug 08, 2018 19:05
[2018-08-08] MEDS: ATORVASTATIN 20 MG TAB PO SCH (20:36)
[2018-08-08] MEDS: FENTAnyl (DRIP) 1000 mcg/100mL 100 ML IV SCH (21:45)
[2018-08-09] VITALS (57 sets, daily range): BP systolic 66–138; BP diastolic 20–97; PULSE 0–98; RESP 19–31
[2018-08-09] MEDS: PROPOFOL 100 ML IV SCH (00:56)
[2018-08-09] MEDS: INSULIN ASPART [NOVOLOG] 3 ML PEN SC SCH ×3 (00:59→08:40)
[2018-08-09] MEDS: ACCU-CHEK XX SCH (01:41)
[2018-08-09] MEDS: LEVOTHYROXINE 100 MCG TAB PO SCH (05:29)
[2018-08-09] MEDS: LANSOPRAZOLE 30 MG CAP PO SCH (05:29)
[2018-08-09] MEDS: INSULIN GLARGINE [LANTus] (100 UNITS/ML) SYG SC SCH (08:00)
[2018-08-09] MEDS: MULTIVIT/CA CARB/B CMPLX/FA TAB PO SCH (08:31)
[2018-08-09] MEDS: CALCIUM/VITAMIN D (500/200) TAB PO SCH (08:31)
[2018-08-09] MEDS: FLUCONAZOLE 100 MG TAB PO SCH (08:31)
[2018-08-09] MEDS: ASPIRIN 81 MG TAB PO SCH (08:31)
[2018-08-09] MEDS: COLLAGENASE 5 GM (UD JAR) TOP SCH (08:32)
[2018-08-09] MEDS: HYDROCORTISONE 100 MG INJ IV SCH (08:32)
[2018-08-09] MEDS: MIDODRINE 5 MG TAB PO SCH (08:32)
[2018-08-09] MEDS: MUPIROCIN 2% 22 GM OINT TOP SCH (08:33)
[2018-08-09] MEDS: BALSAM PERU/CASTOR OIL 60 GM TUBE TOP SCH (08:33)
[2018-08-09] MEDS: NPH, HUMAN INSULIN ISOPHANE 3ML VIAL SC SCH (08:39)
[2018-08-09] MEDS ORDERED: POTASSIUM CHLORIDE (SR) 20 MEQ TAB PO STA (10:07)
--- NOTE | 2018-08-09 10:11 | PN ---
Date/Time of Note Date/Time of Note DATE: 08/09/18 TIME: 10:09 Assessment/Plan VTE Prophylaxis Risk score (from Ns)>0 risk: 19 SCD applied (from Ns): Yes Pharmacological prophylaxis: NA/contraindicated Pharm contraindication: low risk/ambulating Lines/Catheters IV Catheter Type (from Nrsg): Central Line Central line still needed: Yes Urinary Cath still in place: No Assessment/Plan Hospital Course 78 y/o with IMPRESSION: # Cardiac pulmonary arrest s/p vfib # Respiratory failure s/p intubation # Hypotension s/p shock? cardiac vs hypovolemic/septic #LE me anemia likely to secondary to GI bleed H&H stable status post unit 2 units of blood # Hyperkalemia due to missed hemodialysis.due to fall # Acute comminuted fractures of the distal tibia and fibula that involve the distal tibiofibular joint. Distal tibia fracture extends to within 0.3 cm of the tibial plafond but does not involve the articular surface. The appearance is in keeping with an extra-articular Pilon fracture. #. Hyponatremia. resolved #. Metabolic acidosis. # Cardiomegaly and pulmonary edema. #. Aortic atherosclerosis. #. History of congestive heart failure. # History of diabetic retinopathy, nephropathy. #. Hypoalbuminemia. # The patient has right lower extremity brace.with fracture #. Left stump bruise now noticed to have a fracture on the left hip on the x- rays # ? AFIB. # Congestive heart failure by x-ray, question systolic versus diastolic, likely acute on chronic given presentation. # elevated troponin in the setting of end-stage kidney disease # Epigastric pain r/o gastritis/ GB disease> CT scan was pending # elevated troponin in the setting of cardiac arrest downtrending # Leukocytosis # AMS ? sedation vs s/p cpr arrest with encephalopathy , now with new cerebellar infarcts Plan - Seen by neurology > poor prognosis - cw Low-dose aspirin statins/statin - cw vasopressor restarted - would hold HD as unstable - Replete lytes - cw lantus 22, and NPH - OFF Sedation> no response> f/u neurology recs - f/u midodrine /hydrocortisone taper - abx per ID> diflucan -Feeding as tolerated - Hb stable , no evidence of bleeding -Dr. [place] was also called for fracture of the left hip> intervention currently as patient is unstable, will recall again -Hold anticoagulation due to bleeding - fu cardiac/pul recs family inclining on keeping comfortable> dr stewart meeting with them today Result Diagram: 08/09/18 0432 08/09/182 Results 24hrs Laboratory Tests Test 08/08/18 12:37 08/08/18 17:04 08/08/18 20:35 08/09/18 00:55 Bedside Glucose 192 180 177 163 Test 08/09/18 04:32 08/09/18 04:46 08/09/18 08:37 White Blood Count 18.8 H Red Blood Count 2.43 L Hemoglobin 8.1 L Hematocrit 24.7 L Mean Corpuscular 101.6 H Volume Mean Corpuscular 33.3 H Hemoglobin Mean Corpuscular 32.8 Hemoglobin Concent Red Cell Distribution 28.1 H Width Platelet Count 234 # Mean Platelet Volume 12.5 H Immature Granulocytes 0.500 H % Neutrophils % 92.3 H Lymphocytes % 1.9 L Monocytes % 5.0 Eosinophils % 0.1 Basophils % 0.2 Nucleated Red Blood 3.8 H Cells % Immature Granulocytes 0.100 H # Neutrophils # 17.4 H Lymphocytes # 0.4 L Monocytes # 0.9 Eosinophils # 0.0 Basophils # 0.0 Nucleated Red Blood 0.7 H Cells # Sodium Level 132 L Potassium Level 3.1 L Chloride Level 95 L Carbon Dioxide Level 22 Anion Gap 15 H Blood Urea Nitrogen 56 H Creatinine 2.39 H Est Glomerular Filtrat Rate mL/min Glucose Level 194 Calcium Level 6.8 L Phosphorus Level 4.2 Magnesium Level 1.7 Bedside Glucose 238 H 186 Subjective 24 Hr Interval Summary Free Text/Dictation hd could not be done as started back on pressors family inclining on keeping comfortable Exam/Review of Systems Exam Vitals Vital Signs Date Temp Pulse Resp B/P (MAP) Pulse Ox O2 O2 Flow FiO2 Time Delivery Rate 08/09/18 86 26 110/27 95 09:15 (54) 08/09/18 Mechanical 09:00 Ventilator 08/09/18 97.9 08:00 08/09/18 30 08:00 Intake and Output 08/08/18 08/08/18 08/09/18 1414:59 22:59 06:59 IntakeIntake Total 706.75 ml 429.50 ml 438.74 ml OutputOutput Total 20 ml 125 ml 225 ml BalanceBalance 686.75 ml 304.50 ml 213.74 ml Exam respiratory: diminished breath sounds Cardiovascular: regular rate and rhythm Gastrointestinal: soft, bowel sounds (+) Extremities: edema (+) 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 currently sedated Right arm more swollen than the left anasarca does not follow commands, corneal+, gag + Results Results 24hrs Laboratory Tests Test 08/08/18 12:37 08/08/18 17:04 08/08/18 20:35 08/09/18 00:55 Bedside Glucose 192 180 177 163 Test 08/09/18 04:32 08/09/18 04:46 08/09/18 08:37 White Blood Count 18.8 H Red Blood Count 2.43 L Hemoglobin 8.1 L Hematocrit 24.7 L Mean Corpuscular 101.6 H Volume Mean Corpuscular 33.3 H Hemoglobin Mean Corpuscular 32.8 Hemoglobin Concent Red Cell Distribution 28.1 H Width Platelet Count 234 # Mean Platelet Volume 12.5 H Immature Granulocytes 0.500 H % Neutrophils % 92.3 H Lymphocytes % 1.9 L Monocytes % 5.0 Eosinophils % 0.1 Basophils % 0.2 Nucleated Red Blood 3.8 H Cells % Immature Granulocytes 0.100 H # Neutrophils # 17.4 H Lymphocytes # 0.4 L Monocytes # 0.9 Eosinophils # 0.0 Basophils # 0.0 Nucleated Red Blood 0.7 H Cells # Sodium Level 132 L Potassium Level 3.1 L Chloride Level 95 L Carbon Dioxide Level 22 Anion Gap 15 H Blood Urea Nitrogen 56 H Creatinine 2.39 H Est Glomerular Filtrat Rate mL/min Glucose Level 194 Calcium Level 6.8 L Phosphorus Level 4.2 Magnesium Level 1.7 Bedside Glucose 238 H 186 Medications Medication Current Medications Multivit/Ca Carb/ B Cmplx/FA/Prenat (Shyann-Raj) 1 tab DAILY PO Last admini stered on 08/09/18at 08:31; Admin Dose 1 TAB; Start 07/14/18 at 09:00 Tramadol HCl (Ultram) 50 mg TID PRN PO PAIN LEVEL 6-10 Last administered on 07/24/18at 03:35; Admin Dose 50 MG; Start 07/13/18 at 23:30 Acetaminophen (Tylenol Tab) 650 mg Q6H PRN PO MILD PAIN(1-3)OR ELEVATED TEMP; Start 07/13/18 at 23:30 Hydralazine HCl (Apresoline) 20 mg Q6H PRN IV sbp over 170 Last administered on 07/14/18at 11:56; Admin Dose 20 MG; Start 07/13/18 at 23:30 Miscellaneous Information 1 ea NOTE XX ; Start 07/13/18 at 23:30 Glucose (Glutose) 15 gm Q15M PRN PO DECREASED GLUCOSE; Start 07/13/18 at 23:30 Glucose (Glutose) 22.5 gm Q15M PRN PO DECREASED GLUCOSE; Start 07/13/18 at 23:30 Dextrose (D50w Syringe) 25 ml Q15M PRN IV DECREASED GLUCOSE Last administered on 08/07/18at 19:38; Admin Dose 25 ML; Start 07/13/18 at 23:30 Dextrose (D50w Syringe) 50 ml Q15M PRN IV DECREASED GLUCOSE; Start 07/13/18 at 23:30 Glucagon (Glucagen) 1 mg Q15M PRN IM DECREASED GLUCOSE; Start 07/13/18 at 23:30 Glucose (Glutose) 15 gm Q15M PRN BUCCAL DECREASED GLUCOSE; Start 07/13/18 at 23:30 Ondansetron HCl (Zofran Inj) 4 mg Q4H PRN IV NAUSEA AND/OR VOMITING Last administered on 07/23/18at 16:30; Admin Dose 4 MG; Start 07/14/18 at 00:30 Miscellaneous Information (Pending [facility] Order For Wound Care) This patient easley... PRN PRN XX WOUND CARE; Start 07/14/18 at 04:30 Heparin Sodium (Porcine) (Heparin (1000 Units/ml)) 4,000 unit AFTER DIALYSIS CATHETER Last administered on 07/27/18at 20:16; Admin Dose 4,000 UNIT; Start 07/17/18 at 12:30 Diagnostic Test (Pha) (Accu-Chek) 1 ea 02 XX Last administered on 08/05/18at 01:22; Admin Dose 1 EA; Start 07/19/18 at 02:00 IV Flush (NS 3 ml) 3 ml PER PROTOCOL IV ; Start 07/20/18 at 11:30 Calcium/Vitamin D (Oyster Shell/ Vit-D (500/200)) 1 tab BID PO Last administered on 08/09/18 08:31; Admin Dose 1 TAB; Start 07/20/18 at 21:00 Metoprolol Tartrate (Lopressor) 5 mg Q4H PRN IV HR > 110; Hold if SBP < 100 Last administered on 07/21/18 01:52; Admin Dose 5 MG; Start 07/21/18 at 02:00 Norepinephrine 250 ml @ 1.875 mls/ hr TITRATE IV Last administered on 07/29/18 01:20; Admin Dose 3.75 MLS/HR; Start 07/24/18 at 11:00 Collagenase (Santyl) 1 applic DAILY TOP Last administered on 08/09/18 08:32; Admin Dose 1 APPLIC; Start 07/25/18 at 09:00 Phenylephrine HCl 80 mg/Dextrose 250 ml @ 18.75 mls/ hr TITRATE IV Last administered on 08/08/18 17:05; Admin Dose 11.25 MLS/HR; Start 07/24/18 at 20:30 Insulin Aspart (Novolog Insulin Pen) NOVOLOG *MILD* ALGORI... Q4 SC Last administered on 08/09/18 08:40; Admin Dose 2 UNIT; Start 07/24/18 at 21:00 Propofol 100 ml @ 1.851 mls/ hr Q12H IV Last administered on 07/28/18 20:30; Admin Dose 5.553 MLS/HR; Start 07/25/18 at 13:00 Fentanyl 100 ml @ 2.5 mls/hr TITRATE IV Last administered on 08/08/18 21:45; Admin Dose 2.5 MLS/HR; Start 07/26/18 at 11:00 Vancomycin HCl (Vanco Iv Per Pharmacy) VANCOMYCIN PER PHARMACY PER PROTOCOL XX ; Start 07/28/18 at 10:30 Cefepime HCl 50 ml @ 100 mls/hr Q24H IVPB Last administered on 08/08/18 12:05; Admin Dose 100 MLS/HR; Start 07/30/18 at 12:00 Lansoprazole (Prevacid) 30 mg BID@0600,1800 PO Last administered on 08/09/18 05:29; Admin Dose 30 MG; Start 07/30/18 at 18:00 Aspirin (Aspirin) 81 mg DAILY PO Last administered on 08/09/18 08:31; Admin Dose 81 MG; Start 07/30/18 at 11:30 Atorvastatin Calcium (Lipitor) 20 mg HS PO Last administered on 08/08/18 20:36; Admin Dose 20 MG; Start 07/30/18 at 21:00 Midodrine (Proamatine) 10 mg TID@09,13,17 PO Last administered on 08/09/18 08:32; Admin Dose 10 MG; Start 07/30/18 at 13:00 Midazolam HCl 50 ml @ 1 mls/hr TITRATE IV Last administered on 08/07/18 15:26; Admin Dose 1 MLS/HR; Start 08/02/18 at 10:00 Epoetin Derick (Epogen (Esrd)) 3,000 units TuThSa@17 SC Last administered on 08/08/18 17:55; Admin Dose 3,000 UNITS; Start 08/03/18 at 17:00 Levothyroxine Sodium (Synthroid) 100 mcg DAILY@06 PO Last administered on 08/09/18 05:29; Admin Dose 100 MCG; Start 08/03/18 at 06:00 Vancomycin HCl 250 ml @ 125 mls/hr Q96H IVPB Last administered on 08/08/18 12:34; Admin Dose 125 MLS/HR; Start 08/04/18 at 12:00 Metoclopramide HCl (Reglan) 5 mg Q6H PRN IV NAUSEA AND/OR VOMITING; Start 08/05/18 at 10:49 Insulin Glargine (Lantus) 22 units DAILY@0800 SC Last administered on 08/08/18 08:29; Admin Dose 22 UNITS; Start 08/07/18 at 08:00 Insulin Human NPH (Humulin N) 5 unit TID SC Last administered on 08/09/18 08:39; Admin Dose 5 UNIT; Start 08/06/18 at 13:00 Mupirocin (Bactroban) 1 applic BID TOP Last administered on 08/09/18 08:33; Admin Dose 1 APPLIC; Start 08/06/18 at 14:00 Hydrocortisone (Solu-Cortef) 25 mg TID IV Last administered on 08/09/18 08:32; Admin Dose 25 MG; Start 08/07/18 at 09:00 Fluconazole (Diflucan) 100 mg DAILY PO Last administered on 08/09/18at 08:31; Admin Dose 100 MG; Start 08/08/18 at 16:00 Potassium Chloride (Klor-Con 20) 20 meq ONCE STAT PO ; Start 08/09/18 at 10:07; Stop 08/09/18 at 10:08; Status UNV ADAM DUARTE MD Aug 09, 2018 10:11
--- NOTE | 2018-08-09 11:18 | CONS ---
Assessment/Plan Assessment/Plan Hospital Course (Demo Recall) IMP: 1. Preoperative for LE ORIF-NL EF by echo with mod-sev TR. Lexiscan with NL EF and partially reversible inferior wall defect. Thus patient has no cardiac contraindication to proceeding to OR on current medications but at moderate to high risk. Now post-op s/p ORIF 2.Positive troponin 3.BRadycardia to 40's/stable BP. S Misael- now improved with decrease in dose of clonidine and having short runs of tachycardia/SVT. ? Now in AF s/p code yesterday 4.HOtn-now off summer on midodrine 5.ankle fracture 6.ESRD on HD 7. TR-mod-sev 8. ? sick euthyroid-elevated TSH and Free t4 9. Patient with PEA and VFA this am requiring ACLS and intubation protocol on onset during HD 10. anemia-acute drop. ? where bleeding,internal given abd pain. Now s/p transfusion PRBC's/possible melena overnight 11.PAF- in AF at this time. Reasonable rates on amiodarone 12. Nstemi- downtrending cardiac enzymes significantly 14. hypotension-on summer- s/p repeat echo 07/29 with EF slightly lower but still wnl 50% 15. UTI Recc -ICU -Continue midodrine BP support as necessary and summer as necessary -continue vent support -Continue ASA as tolerated. Not on systemic anticoagulation secondary to anemia/GIB -transfuse PRBC's as necessary -HD as tolerated only -trend cardiac enzymes -Contineu abx's and f/u cx data -To be made [employer] Consultation Date/Type/Reason Admit Date/Time Jul 13, 2018 at 21:32 Initial Consult Date 07/16/18 Type of Consult Cardiology Reason for Consultation HYpotension Requesting Provider: ADAM DUARTE MD Date/Time of Note DATE: 08/09/18 TIME: 11:16 Exam/Review of Systems Vital Signs Vitals Vital Signs Date Temp Pulse Resp B/P (MAP) Pulse Ox O2 O2 Flow FiO2 Time Delivery Rate 08/09/18 84 26 103/30 94 Mechanical 11:00 (54) Ventilator 08/09/18 30 09:30 08/09/18 97.9 08:00 Intake and Output 08/08/18 08/08/18 08/09/18 1414:59 22:59 06:59 IntakeIntake Total 706.75 ml 429.50 ml 438.74 ml OutputOutput Total 20 ml 125 ml 225 ml BalanceBalance 686.75 ml 304.50 ml 213.74 ml Exam Exam Review of Systems: CONSTITUTIONAL: No fevers, chills. PULMONARY: No sob CARDIOVASCULAR: No chest pain/palpitations GASTROINTESTINAL: No nausea/vomiting. GENITOURINARY: No hematuria/dysuria. MUSCULOSKELETAL: No myagias/arthalgias. PSYCHIATRIC: The patient denies depression. NEUROLOGIC: No weakness Constitutional: other (encephalopathic) Neck: other (trached) Respiratory: diminished breath sounds Cardiovascular: irregular rhythm Gastrointestinal: soft, non-tender Musculoskeletal: muscle weakness (generalized) Extremities: edema (trace/B), other (s/p amputation) Neurological: other (No focal deficits) Labs Result Diagram: 08/09/182 08/09/18 0432 Results 24hrs Laboratory Tests Test 08/08/18 12:37 08/08/18 17:04 08/08/18 20:35 08/09/18 00:55 Bedside Glucose 192 180 177 163 Test 08/09/18 04:32 08/09/18 04:46 08/09/18 08:37 White Blood Count 18.8 H Red Blood Count 2.43 L Hemoglobin 8.1 L Hematocrit 24.7 L Mean Corpuscular 101.6 H Volume Mean Corpuscular 33.3 H Hemoglobin Mean Corpuscular 32.8 Hemoglobin Concent Red Cell Distribution 28.1 H Width Platelet Count 234 # Mean Platelet Volume 12.5 H Immature Granulocytes 0.500 H % Neutrophils % 92.3 H Lymphocytes % 1.9 L Monocytes % 5.0 Eosinophils % 0.1 Basophils % 0.2 Nucleated Red Blood 3.8 H Cells % Immature Granulocytes 0.100 H # Neutrophils # 17.4 H Lymphocytes # 0.4 L Monocytes # 0.9 Eosinophils # 0.0 Basophils # 0.0 Nucleated Red Blood 0.7 H Cells # Sodium Level 132 L Potassium Level 3.1 L Chloride Level 95 L Carbon Dioxide Level 22 Anion Gap 15 H Blood Urea Nitrogen 56 H Creatinine 2.39 H Est Glomerular Filtrat Rate mL/min Glucose Level 194 Calcium Level 6.8 L Phosphorus Level 4.2 Magnesium Level 1.7 Bedside Glucose 238 H 186 Medications Medications Current Medications Multivit/Ca Carb/ B Cmplx/FA/Prenat (Shyann-Raj) 1 tab DAILY PO Last administered on 08/09/18at 08:31; Admin Dose 1 TAB; Start 07/14/18 at 09:00 Tramadol HCl (Ultram) 50 mg TID PRN PO PAIN LEVEL 6-10 Last administered on 07/24/18at 03:35; Admin Dose 50 MG; Start 07/13/18 at 23:30 Acetaminophen (Tylenol Tab) 650 mg Q6H PRN PO MILD PAIN(1-3)OR ELEVATED TEMP; Start 07/13/18 at 23:30 Hydralazine HCl (Apresoline) 20 mg Q6H PRN IV sbp over 170 Last administered on 07/14/18at 11:56; Admin Dose 20 MG; Start 07/13/18 at 23:30 Miscellaneous Information 1 ea NOTE XX ; Start 07/13/18 at 23:30 Glucose (Glutose) 15 gm Q15M PRN PO DECREASED GLUCOSE; Start 07/13/18 at 23:30 Glucose (Glutose) 22.5 gm Q15M PRN PO DECREASED GLUCOSE; Start 07/13/18 at 23:30 Dextrose (D50w Syringe) 25 ml Q15M PRN IV DECREASED GLUCOSE Last administered on 08/07/18at 19:38; Admin Dose 25 ML; Start 07/13/18 at 23:30 Dextrose (D50w Syringe) 50 ml Q15M PRN IV DECREASED GLUCOSE; Start 07/13/18 at 23:30 Glucagon (Glucagen) 1 mg Q15M PRN IM DECREASED GLUCOSE; Start 07/13/18 at 23:30 Glucose (Glutose) 15 gm Q15M PRN BUCCAL DECREASED GLUCOSE; Start 07/13/18 at 23:30 Ondansetron HCl (Zofran Inj) 4 mg Q4H PRN IV NAUSEA AND/OR VOMITING Last administered on 07/23/18at 16:30; Admin Dose 4 MG; Start 07/14/18 at 00:30 Miscellaneous Information (Pending [facility] Order For Wound Care) This patient easley... PRN PRN XX WOUND CARE; Start 07/14/18 at 04:30 Heparin Sodium (Porcine) (Heparin (1000 Units/ml)) 4,000 unit AFTER DIALYSIS CATHETER Last administered on 07/27/18at 20:16; Admin Dose 4,000 UNIT; Start 07/17/18 at 12:30 Diagnostic Test (Pha) (Accu-Chek) 1 ea 02 XX Last administered on 08/05/18 01:22; Admin Dose 1 EA; Start 07/19/18 at 02:00 IV Flush (NS 3 ml) 3 ml PER PROTOCOL IV ; Start 07/20/18 at 11:30 Calcium/Vitamin D (Oyster Shell/ Vit-D (500/200)) 1 tab BID PO Last administered on 08/09/18 08:31; Admin Dose 1 TAB; Start 07/20/18 at 21:00 Metoprolol Tartrate (Lopressor) 5 mg Q4H PRN IV HR > 110; Hold if SBP < 100 Last administered on 07/21/18 01:52; Admin Dose 5 MG; Start 07/21/18 at 02:00 Norepinephrine 250 ml @ 1.875 mls/ hr TITRATE IV Last administered on 07/29/18 01:20; Admin Dose 3.75 MLS/HR; Start 07/24/18 at 11:00 Collagenase (Santyl) 1 applic DAILY TOP Last administered on 08/09/18 08:32; Admin Dose 1 APPLIC; Start 07/25/18 at 09:00 Phenylephrine HCl 80 mg/Dextrose 250 ml @ 18.75 mls/ hr TITRATE IV Last administered on 08/08/18 17:05; Admin Dose 11.25 MLS/HR; Start 07/24/18 at 20:30 Insulin Aspart (Novolog Insulin Pen) NOVOLOG *MILD* ALGORI... Q4 SC Last administered on 08/09/18 08:40; Admin Dose 2 UNIT; Start 07/24/18 at 21:00 Propofol 100 ml @ 1.851 mls/ hr Q12H IV Last administered on 07/28/18 20:30; Admin Dose 5.553 MLS/HR; Start 07/25/18 at 13:00 Fentanyl 100 ml @ 2.5 mls/hr TITRATE IV Last administered on 08/08/18 21:45; Admin Dose 2.5 MLS/HR; Start 07/26/18 at 11:00 Vancomycin HCl (Vanco Iv Per Pharmacy) VANCOMYCIN PER PHARMACY PER PROTOCOL XX ; Start 07/28/18 at 10:30 Cefepime HCl 50 ml @ 100 mls/hr Q24H IVPB Last administered on 08/08/18 12:05; Admin Dose 100 MLS/HR; Start 07/30/18 at 12:00 Lansoprazole (Prevacid) 30 mg BID@0600,1800 PO Last administered on 08/09/18 05:29; Admin Dose 30 MG; Start 07/30/18 at 18:00 Aspirin (Aspirin) 81 mg DAILY PO Last administered on 08/09/18 08:31; Admin Dose 81 MG; Start 07/30/18 at 11:30 Atorvastatin Calcium (Lipitor) 20 mg HS PO Last administered on 08/08/18 20:36; Admin Dose 20 MG; Start 07/30/18 at 21:00 Midodrine (Proamatine) 10 mg TID@09,13,17 PO Last administered on 08/09/18 08:32; Admin Dose 10 MG; Start 07/30/18 at 13:00 Midazolam HCl 50 ml @ 1 mls/hr TITRATE IV Last administered on 08/07/18 15:26; Admin Dose 1 MLS/HR; Start 08/02/18 at 10:00 Epoetin Derick (Epogen (Esrd)) 3,000 units TuThSa@17 SC Last administered on 08/08/18 17:55; Admin Dose 3,000 UNITS; Start 08/03/18 at 17:00 Levothyroxine Sodium (Synthroid) 100 mcg DAILY@06 PO Last administered on 08/09/18 05:29; Admin Dose 100 MCG; Start 08/03/18 at 06:00 Vancomycin HCl 250 ml @ 125 mls/hr Q96H IVPB Last administered on 08/08/18 12:34; Admin Dose 125 MLS/HR; Start 08/04/18 at 12:00 Metoclopramide HCl (Reglan) 5 mg Q6H PRN IV NAUSEA AND/OR VOMITING; Start 08/05/18 at 10:49 Insulin Glargine (Lantus) 22 units DAILY@0800 SC Last administered on 08/09/18 08:00; Admin Dose 22 UNITS; Start 08/07/18 at 08:00 Mupirocin (Bactroban) 1 applic BID TOP Last administered on 08/09/18 08:33; Admin Dose 1 APPLIC; Start 08/06/18 at 14:00 Hydrocortisone (Solu-Cortef) 25 mg TID IV Last administered on 08/09/18at 08:32; Admin Dose 25 MG; Start 08/07/18 at 09:00 Fluconazole (Diflucan) 100 mg DAILY PO Last administered on 08/09/18at 08:31; Admin Dose 100 MG; Start 08/08/18 at 16:00 Insulin Human NPH (Humulin N) 7 unit TID SC ; Start 08/09/18 at 13:00 JUSTICE HARRISON Aug 09, 2018 11:18
--- NOTE | 2018-08-09 11:35 | CONS ---
Consult Date/Type/Reason Admit Date/Time Jul 13, 2018 at 21:32 Initial Consult Date Type of Consult Pulmonary Requesting Provider: ADAM DUARTE MD Date/Time of Note DATE: 08/09/18 TIME: 11:34 Subjective No significant changes. Objective Vital Signs Date Temp Pulse Resp B/P (MAP) Pulse Ox O2 O2 Flow FiO2 Time Delivery Rate 08/09/18 84 26 103/30 94 Mechanical 11:00 (54) Ventilator 08/09/18 30 09:30 08/09/18 97.9 08:00 Intake and Output 08/08/18 08/08/18 08/09/18 1515:00 23:00 07:00 IntakeIntake Total 720.50 ml 429.50 ml 441.55 ml OutputOutput Total 20 ml 125 ml 225 ml BalanceBalance 700.50 ml 304.50 ml 216.55 ml Exam PHYSICAL EXAMINATION: GENERAL: Elderly-appearing lady, on vent, unresponsive. VITAL SIGNS: NECK: Supple. No JVD or lymphadenopathy. CARDIAC: S1, S2, no added sounds or murmurs. CHEST: Diminished air entry bilaterally with rales. ABDOMEN: Soft, nontender. No guarding or rebound. EXTREMITIES: No cyanosis, clubbing or edema. NEUROLOGIC: Generalized weakness.Unable to assess. Vent Setting Ventilator Support Mode: AC Fraction of Inspired Oxygen pe: 30 Positive End Expiratory Pressu: 5.0 Results/Medications Result Diagram: 08/09/1843108/09/18431 Results 24 hrs Laboratory Tests Test 08/08/18 12:37 08/08/18 17:04 08/08/18 20:35 08/09/18 00:55 Bedside Glucose 192 180 177 163 Test 08/09/18 04:32 08/09/18 04:46 08/09/18 08:37 White Blood Count 18.8 H Red Blood Count 2.43 L Hemoglobin 8.1 L Hematocrit 24.7 L Mean Corpuscular 101.6 H Volume Mean Corpuscular 33.3 H Hemoglobin Mean Corpuscular 32.8 Hemoglobin Concent Red Cell Distribution 28.1 H Width Platelet Count 234 # Mean Platelet Volume 12.5 H Immature Granulocytes 0.500 H % Neutrophils % 92.3 H Lymphocytes % 1.9 L Monocytes % 5.0 Eosinophils % 0.1 Basophils % 0.2 Nucleated Red Blood 3.8 H Cells % Immature Granulocytes 0.100 H # Neutrophils # 17.4 H Lymphocytes # 0.4 L Monocytes # 0.9 Eosinophils # 0.0 Basophils # 0.0 Nucleated Red Blood 0.7 H Cells # Sodium Level 132 L Potassium Level 3.1 L Chloride Level 95 L Carbon Dioxide Level 22 Anion Gap 15 H Blood Urea Nitrogen 56 H Creatinine 2.39 H Est Glomerular Filtrat Rate mL/min Glucose Level 194 Calcium Level 6.8 L Phosphorus Level 4.2 Magnesium Level 1.7 Bedside Glucose 238 H 186 Medications Current Medications Multivit/Ca Carb/ B Cmplx/FA/Prenat (Shyann-Raj) 1 tab DAILY PO Last administered on 08/09/18at 08:31; Admin Dose 1 TAB; Start 07/14/18 at 09:00 Tramadol HCl (Ultram) 50 mg TID PRN PO PAIN LEVEL 6-10 Last administered on 07/24/18at 03:35; Admin Dose 50 MG; Start 07/13/18 at 23:30 Acetaminophen (Tylenol Tab) 650 mg Q6H PRN PO MILD PAIN(1-3)OR ELEVATED TEMP; Start 07/13/18 at 23:30 Hydralazine HCl (Apresoline) 20 mg Q6H PRN IV sbp over 170 Last administered on 07/14/18at 11:56; Admin Dose 20 MG; Start 07/13/18 at 23:30 Miscellaneous Information 1 ea NOTE XX ; Start 07/13/18 at 23:30 Glucose (Glutose) 15 gm Q15M PRN PO DECREASED GLUCOSE; Start 07/13/18 at 23:30 Glucose (Glutose) 22.5 gm Q15M PRN PO DECREASED GLUCOSE; Start 07/13/18 at 23:30 Dextrose (D50w Syringe) 25 ml Q15M PRN IV DECREASED GLUCOSE Last administered on 08/07/18at 19:38; Admin Dose 25 ML; Start 07/13/18 at 23:30 Dextrose (D50w Syringe) 50 ml Q15M PRN IV DECREASED GLUCOSE; Start 07/13/18 at 23:30 Glucagon (Glucagen) 1 mg Q15M PRN IM DECREASED GLUCOSE; Start 07/13/18 at 23:30 Glucose (Glutose) 15 gm Q15M PRN BUCCAL DECREASED GLUCOSE; Start 07/13/18 at 23:30 Ondansetron HCl (Zofran Inj) 4 mg Q4H PRN IV NAUSEA AND/OR VOMITING Last administered on 07/23/18 16:30; Admin Dose 4 MG; Start 07/14/18 at 00:30 Miscellaneous Information (Pending Santyl Order For Wound Care) This patient easley... PRN PRN XX WOUND CARE; Start 07/14/18 at 04:30 Heparin Sodium (Porcine) (Heparin (1000 Units/ml)) 4,000 unit AFTER DIALYSIS CATHETER Last administered on 07/27/18 20:16; Admin Dose 4,000 UNIT; Start 07/17/18 at 12:30 Diagnostic Test (Pha) (Accu-Chek) 1 ea 02 XX Last administered on 08/05/18 01:22; Admin Dose 1 EA; Start 07/19/18 at 02:00 IV Flush (NS 3 ml) 3 ml PER PROTOCOL IV ; Start 07/20/18 at 11:30 Calcium/Vitamin D (Oyster Shell/ Vit-D (500/200)) 1 tab BID PO Last administered on 08/09/18 08:31; Admin Dose 1 TAB; Start 07/20/18 at 21:00 Metoprolol Tartrate (Lopressor) 5 mg Q4H PRN IV HR > 110; Hold if SBP < 100 Last administered on 07/21/18 01:52; Admin Dose 5 MG; Start 07/21/18 at 02:00 Norepinephrine 250 ml @ 1.875 mls/ hr TITRATE IV Last administered on 07/29/18 01:20; Admin Dose 3.75 MLS/HR; Start 07/24/18 at 11:00 Collagenase (Santyl) 1 applic DAILY TOP Last administered on 08/09/18 08:32; Admin Dose 1 APPLIC; Start 07/25/18 at 09:00 Phenylephrine HCl 80 mg/Dextrose 250 ml @ 18.75 mls/ hr TITRATE IV Last administered on 08/08/18 17:05; Admin Dose 11.25 MLS/HR; Start 07/24/18 at 20:30 Insulin Aspart (Novolog Insulin Pen) NOVOLOG *MILD* ALGORI... Q4 SC Last administered on 08/09/18 08:40; Admin Dose 2 UNIT; Start 07/24/18 at 21:00 Propofol 100 ml @ 1.851 mls/ hr Q12H IV Last administered on 07/28/18 20:30; Admin Dose 5.553 MLS/HR; Start 07/25/18 at 13:00 Fentanyl 100 ml @ 2.5 mls/hr TITRATE IV Last administered on 08/08/18 21:45; Admin Dose 2.5 MLS/HR; Start 07/26/18 at 11:00 Vancomycin HCl (Vanco Iv Per Pharmacy) VANCOMYCIN PER PHARMACY PER PROTOCOL XX ; Start 07/28/18 at 10:30 Cefepime HCl 50 ml @ 100 mls/hr Q24H IVPB Last administered on 08/08/18 12:05; Admin Dose 100 MLS/HR; Start 07/30/18 at 12:00 Lansoprazole (Prevacid) 30 mg BID@0600,1800 PO Last administered on 08/09/18 05:29; Admin Dose 30 MG; Start 07/30/18 at 18:00 Aspirin (Aspirin) 81 mg DAILY PO Last administered on 08/09/18 08:31; Admin Dose 81 MG; Start 07/30/18 at 11:30 Atorvastatin Calcium (Lipitor) 20 mg HS PO Last administered on 08/08/18 20:36; Admin Dose 20 MG; Start 07/30/18 at 21:00 Midodrine (Proamatine) 10 mg TID@09,13,17 PO Last administered on 08/09/18 08:32; Admin Dose 10 MG; Start 07/30/18 at 13:00 Midazolam HCl 50 ml @ 1 mls/hr TITRATE IV Last administered on 08/07/18 15:26; Admin Dose 1 MLS/HR; Start 08/02/18 at 10:00 Epoetin Derick (Epogen (Esrd)) 3,000 units TuThSa@17 SC Last administered on 08/08/18 17:55; Admin Dose 3,000 UNITS; Start 08/03/18 at 17:00 Levothyroxine Sodium (Synthroid) 100 mcg DAILY@06 PO Last administered on 08/09/18 05:29; Admin Dose 100 MCG; Start 08/03/18 at 06:00 Vancomycin HCl 250 ml @ 125 mls/hr Q96H IVPB Last administered on 08/08/18 12:34; Admin Dose 125 MLS/HR; Start 08/04/18 at 12:00 Metoclopramide HCl (Reglan) 5 mg Q6H PRN IV NAUSEA AND/OR VOMITING; Start 08/05/18 at 10:49 Insulin Glargine (Lantus) 22 units DAILY@0800 SC Last administered on 08/09/18at 08:00; Admin Dose 22 UNITS; Start 08/07/18 at 08:00 Mupirocin (Bactroban) 1 applic BID TOP Last administered on 08/09/18at 08:33; Admin Dose 1 APPLIC; Start 08/06/18 at 14:00 Hydrocortisone (Solu-Cortef) 25 mg TID IV Last administered on 08/09/18at 08:32; Admin Dose 25 MG; Start 08/07/18 at 09:00 Fluconazole (Diflucan) 100 mg DAILY PO Last administered on 08/09/18at 08:31; Admin Dose 100 MG; Start 08/08/18 at 16:00 Insulin Human NPH (Humulin N) 7 unit TID SC ; Start 08/09/18 at 13:00 Assessment/Plan Hospital Course (Demo Recall) IMPRESSION 1. Cardiopulmonary arrest. Prolonged CPR with ACLS protocol. 2. Multiple cardiopulmonary arrests and prolonged hypotension, now with persistent encephalopathy 3. End-stage renal failure on hemodialysis. 4. Possible aspiration pneumonia. Septic shock. Requiring vasopressor support, increasing pressor requirements persistent right lower lobe infiltrate 5. History of severe peripheral vascular disease. 6. Possible acute GI bleed given acute drop in hemoglobin prior to cardiac arrest 7. Stress dose steroids Plan Transition to comfort care today. DEVAN MIDDLETON MD, [facility] Aug 09, 2018 11:35
[2018-08-09] MEDS ORDERED: morphine (DRIP) 100 MG/100 ML 100 ML IV SCH (12:00)
[2018-08-09] MEDS ORDERED: LORAZEPAM 2 MG INJ IV PRN (12:00)
--- NOTE | 2018-08-09 12:45 | CONS ---
Assessment/Plan Assessment/Plan Assessment/Plan (Daily) 1. Anemia, rule out gastrointestinal bleeding. -concern for GI bleed due to drop in H/H prior to cardiac arrest. -per RN bm was brown with potentially old melena, no active bleeding -FOB positive 2. Status post pulseless electrical activity period and cardiac arrest. 3. Ventilator-dependent respiratory failure. 4. End-stage renal disease, on dialysis. 5. 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 6. left aka 7. Ankle fracture. 8. Cirrhosis of liver 9. Gastroparesis 10. Multiple decubitus ulcers on buttocks and coccyx. 11. Enterococcus in urine Plan: Family meeting today. Please let us know if patient will need PEG Aspiration precautions Full code Monitor HH and replace as necessary. Final decision will be made by the family after discussing with Dr. Gonzales Consultation Date/Type/Reason Admit Date/Time Jul 13, 2018 at 21:32 Initial Consult Date Requesting Provider: ADAM DUARTE MD Date/Time of Note DATE: 08/09/18 TIME: 12:43 24 HR Interval Summary Free Text/Dictation As per staff there is no active bleeding Subjective hx not possible: pt non-verbal, pt critical status Exam/Review of Systems Exam Vitals Vital Signs Date Temp Pulse Resp B/P (MAP) Pulse Ox O2 O2 Flow FiO2 Time Delivery Rate 08/09/18 83 22 94 30 11:00 08/09/18 103/30 Mechanical 11:00 (54) Ventilator 08/09/18 97.9 08:00 Intake and Output 08/08/18 08/08/18 08/09/18 1515:00 23:00 07:00 IntakeIntake Total 720.50 ml 429.50 ml 441.55 ml OutputOutput Total 20 ml 125 ml 225 ml BalanceBalance 700.50 ml 304.50 ml 216.55 ml ENMT: nl lips & teeth Gastrointestinal: soft, nl liver, spleen, non-tender Musculoskeletal: nl extremities to inspection, nl gait and stance Neurological: unresponsive Results Result Diagram: 08/09/18 0432 08/09/18 0432 Results 24hrs Laboratory Tests Test 08/08/18 17:04 08/08/18 20:35 08/09/18 00:55 08/09/18 04:32 Bedside Glucose 180 177 163 White Blood Count 18.8 H Red Blood Count 2.43 L Hemoglobin 8.1 L Hematocrit 24.7 L Mean Corpuscular 101.6 H Volume Mean Corpuscular 33.3 H Hemoglobin Mean Corpuscular 32.8 Hemoglobin Concent Red Cell Distribution 28.1 H Width Platelet Count 234 # Mean Platelet Volume 12.5 H Immature Granulocytes 0.500 H % Neutrophils % 92.3 H Lymphocytes % 1.9 L Monocytes % 5.0 Eosinophils % 0.1 Basophils % 0.2 Nucleated Red Blood 3.8 H Cells % Immature Granulocytes 0.100 H # Neutrophils # 17.4 H Lymphocytes # 0.4 L Monocytes # 0.9 Eosinophils # 0.0 Basophils # 0.0 Nucleated Red Blood 0.7 H Cells # Sodium Level 132 L Potassium Level 3.1 L Chloride Level 95 L Carbon Dioxide Level 22 Anion Gap 15 H Blood Urea Nitrogen 56 H Creatinine 2.39 H Est Glomerular Filtrat Rate mL/min Glucose Level 194 Calcium Level 6.8 L Phosphorus Level 4.2 Magnesium Level 1.7 Test 08/09/18 04:46 08/09/18 08:37 Bedside Glucose 238 H 186 Medications Medication Current Medications Morphine Sulfate/ Sodium Chloride 100 ml @ 1 mls/hr TITRATE IV Last administered on 08/09/18at 12:25; Admin Dose 2 MLS/HR; Start 08/09/18 at 12:00 Lorazepam (Ativan) 1 mg Q2H PRN IV agitation Last administered on 08/09/18at 12:03; Admin Dose 1 MG; Start 08/09/18 at 12:00 GLORIA TURNER MD Aug 09, 2018 12:45
--- NOTE | 2018-08-09 12:52 | CONS ---
Assessment/Plan Assessment/Plan Hospital Course (Demo Recall) 1100 No acute changes overnight, family at bedside for terminal extubation Microbiology: Blood cultures remain negative sputum culture growing Johnna albicans urine culture grew enterococcus species on July 24 Antimicrobials: Vancomycin cefepime Diflucan Indwelling: Endotracheal tube NG tube right chest permacath femoral triple-lumen catheter, Hernandez catheter, rectal tube Physical examination: Chronically ill-appearing elderly woman who is intubated in no distress. Head atraumatic normocephalic sclera nonicteric. Neck is supple. Chest rise symmetrical, breath sounds diminished bases. Heart: S1-S2. Abdomen soft bowel sounds hypoactive. Extremities with right lower extremity in a cast patient has left below-knee amputation. Skin: Positive for anasarca, mottled sacral excoriation Assessment: 1. Severe sepsis with shock 2. UTI 3. Diarrhea, C. difficile negative 4. Acute hypoxemic respiratory failure, possible aspiration pneumonia 5. Encephalopathy status post cardiopulmonary arrest with prolonged CPR and ACLS protocol 6. End-stage renal disease, hemodialysis dependent 7. Acute cerebellar infarcts, neurology on case 8. MRSA colonization Plan: Remains unchanged, pending terminal extubation Consultation Date/Type/Reason Admit Date/Time Jul 13, 2018 at 21:32 Initial Consult Date id Requesting Provider: ADAM DUARTE MD Date/Time of Note DATE: 08/09/18 TIME: 12:51 Exam/Review of Systems Exam Vitals Vital Signs Date Temp Pulse Resp B/P (MAP) Pulse Ox O2 O2 Flow FiO2 Time Delivery Rate 08/09/18 83 22 94 30 11:00 08/09/18 103/30 Mechanical 11:00 (54) Ventilator 08/09/18 97.9 08:00 Intake and Output 08/08/18 08/08/18 08/09/18 1515:00 23:00 07:00 IntakeIntake Total 720.50 ml 429.50 ml 441.55 ml OutputOutput Total 20 ml 125 ml 225 ml BalanceBalance 700.50 ml 304.50 ml 216.55 ml Results Result Diagram: 08/09/18 0432 08/09/18 0432 Results 24hrs Laboratory Tests Test 08/08/18 17:04 08/08/18 20:35 08/09/18 00:55 08/09/18 04:32 Bedside Glucose 180 177 163 White Blood Count 18.8 H Red Blood Count 2.43 L Hemoglobin 8.1 L Hematocrit 24.7 L Mean Corpuscular 101.6 H Volume Mean Corpuscular 33.3 H Hemoglobin Mean Corpuscular 32.8 Hemoglobin Concent Red Cell Distribution 28.1 H Width Platelet Count 234 # Mean Platelet Volume 12.5 H Immature Granulocytes 0.500 H % Neutrophils % 92.3 H Lymphocytes % 1.9 L Monocytes % 5.0 Eosinophils % 0.1 Basophils % 0.2 Nucleated Red Blood 3.8 H Cells % Immature Granulocytes 0.100 H # Neutrophils # 17.4 H Lymphocytes # 0.4 L Monocytes # 0.9 Eosinophils # 0.0 Basophils # 0.0 Nucleated Red Blood 0.7 H Cells # Sodium Level 132 L Potassium Level 3.1 L Chloride Level 95 L Carbon Dioxide Level 22 Anion Gap 15 H Blood Urea Nitrogen 56 H Creatinine 2.39 H Est Glomerular Filtrat Rate mL/min Glucose Level 194 Calcium Level 6.8 L Phosphorus Level 4.2 Magnesium Level 1.7 Test 08/09/18 04:46 08/09/18 08:37 Bedside Glucose 238 H 186 Medications Medication Current Medications Morphine Sulfate/ Sodium Chloride 100 ml @ 1 mls/hr TITRATE IV Last ad ministered on 08/09/18at 12:25; Admin Dose 2 MLS/HR; Start 08/09/18 at 12:00 Lorazepam (Ativan) 1 mg Q2H PRN IV agitation Last administered on 08/09/18at 12:03; Admin Dose 1 MG; Start 08/09/18 at 12:00 INES ALMODOVAR NP Aug 09, 2018 12:52
[2018-08-09] MEDS ORDERED: NPH, HUMAN INSULIN ISOPHANE 3ML VIAL SC SCH (13:00)
--- NOTE | 2018-08-09 13:53 | RADRPT ---
Vent Rate: 93 bpm RR Interval: 0 msec [place] Interval: 0 msec QRS Duration: 82 msec QT Interval: 394 msec QTC Interval: 489 msec P-R-T [place]: 0 - -41 - 0 degrees Undetermined rhythm. Possibly atrial fibrillation. PVC. Left axis deviation Anterior infarct , age undetermined Abnormal ECG Electronically Signed By: Stefano Bazan
--- NOTE | 2018-08-09 13:57 | QN ---
Documentation Comment Patient was reported to be , called by nurse, approached patient at bedside, patient has no pupillary reflex, no spontaneous breaths, monitor is showing asystole, no heart rate, no breath sounds, no response to sternal rub. Time of is at 1354 on August 09, 2018. GROVER POPE Aug 09, 2018 13:57
--- NOTE | 2018-08-09 13:59 | RADRPT ---
Vent Rate: 112 bpm RR Interval: 0 msec [place] Interval: 0 msec QRS Duration: 76 msec QT Interval: 504 msec QTC Interval: 687 msec P-R-T [place]: 0 - 0 - 93 degrees Atrial fibrillation with rapid ventricular response with premature ventricular or aberrantly conducted complexes Right superior axis deviation Anterior infarct , age undetermined Abnormal ECG Electronically Signed By: Juan R Palma
--- NOTE | 2018-08-09 13:59 | RADRPT ---
Vent Rate: 76 bpm RR Interval: 0 msec [place] Interval: 134 msec QRS Duration: 94 msec QT Interval: 446 msec QTC Interval: 501 msec P-R-T [place]: 81 - 19 - 138 degrees Sinus rhythm with premature supraventricular complexes Nonspecific ST and T wave abnormality Prolonged QT Abnormal ECG Electronically Signed By: Juan R Palma
--- NOTE | 2018-08-09 14:00 | RADRPT ---
Vent Rate: 119 bpm RR Interval: 0 msec [place] Interval: 0 msec QRS Duration: 126 msec QT Interval: 422 msec QTC Interval: 593 msec P-R-T [place]: 0 - 90 - 5 degrees Atrial fibrillation with rapid ventricular response with premature ventricular or aberrantly conducted complexes Right bundle branch block Abnormal ECG Electronically Signed By: Franco Estrada
== END 2018-08-09 13:54 | disposition expired | DRG 640 ==
LOC: E/R 19:51 → 6WM 21:32 → PP2 07-22 20:07 → ICU 07-24 09:26
PROVIDERS: ADMIT Internal Medicine Nephrology; ATTEND Internal Medicine Nephrology
PROC: 5A1D70Z Performance of Urinary Filtration, Intermittent, Less than 6 Hours Per Day (ICD-10-PCS; principal; 2018-07-14)
PROC: 0QSGXZZ Reposition Right Tibia, External Approach (ICD-10-PCS; 2018-07-20)
PROC: 0HDMXZZ Extraction of Right Foot Skin, External Approach (ICD-10-PCS; 2018-07-20)
PROC: 0BH17EZ Insertion of Endotracheal Airway into Trachea, Via Natural or Artificial Opening (ICD-10-PCS; 2018-07-24)
PROC: 5A1955Z Respiratory Ventilation, Greater than 96 Consecutive Hours (ICD-10-PCS; 2018-07-24)
PROC: 5A2204Z Restoration of Cardiac Rhythm, Single (ICD-10-PCS; 2018-07-24)
PROC: 5A12012 Performance of Cardiac Output, Single, Manual (ICD-10-PCS; 2018-07-24)
PROC: 06HY33Z Insertion of Infusion Device into Lower Vein, Percutaneous Approach (ICD-10-PCS; 2018-07-24)
PROC: 04HY33Z Insertion of Infusion Device into Lower Artery, Percutaneous Approach (ICD-10-PCS; 2018-07-24)
PROC: 30233N1 Transfusion of Nonautologous Red Blood Cells into Peripheral Vein, Percutaneous Approach (ICD-10-PCS; 2018-07-24)
PROC: 06HY33Z Insertion of Infusion Device into Lower Vein, Percutaneous Approach (ICD-10-PCS; 2018-08-06)
DX: E87.5 Hyperkalemia (principal); N18.6 End stage renal disease; I50.33 Acute on chronic diastolic (congestive) heart failure; J96.00 Acute respiratory failure, unspecified whether with hypoxia or hypercapnia; J69.0 Pneumonitis due to inhalation of food and vomit; A41.9 Sepsis, unspecified organism; R65.21 Severe sepsis with septic shock; I21.4 Non-ST elevation (NSTEMI) myocardial infarction; I63.9 Cerebral infarction, unspecified; I13.2 Hypertensive heart and chronic kidney disease with heart failure and with stage 5 chronic kidney disease, or end stage renal disease; G93.1 Anoxic brain damage, not elsewhere classified; D62 Acute posthemorrhagic anemia; K92.2 Gastrointestinal hemorrhage, unspecified; M80.052A Age-related osteoporosis with current pathological fracture, left femur, initial encounter for fracture; N39.0 Urinary tract infection, site not specified; I46.2 Cardiac arrest due to underlying cardiac condition; I49.01 Ventricular fibrillation; E11.22 Type 2 diabetes mellitus with diabetic chronic kidney disease; E11.21 Type 2 diabetes mellitus with diabetic nephropathy; E11.40 Type 2 diabetes mellitus with diabetic neuropathy, unspecified; E11.43 Type 2 diabetes mellitus with diabetic autonomic (poly)neuropathy; K31.84 Gastroparesis; E11.319 Type 2 diabetes mellitus with unspecified diabetic retinopathy without macular edema; E87.1 Hypo-osmolality and hyponatremia; E87.2 Acidosis; E88.09 Other disorders of plasma-protein metabolism, not elsewhere classified; E03.9 Hypothyroidism, unspecified; H54.62 Unqualified visual loss, left eye, normal vision right eye; I25.10 Atherosclerotic heart disease of native coronary artery without angina pectoris; I70.0 Atherosclerosis of aorta; I48.0 Paroxysmal atrial fibrillation; K74.60 Unspecified cirrhosis of liver; S82.871A Displaced pilon fracture of right tibia, initial encounter for closed fracture; S80.12XA Contusion of left lower leg, initial encounter; W18.30XA Fall on same level, unspecified, initial encounter; Z51.5 Encounter for palliative care; Z89.512 Acquired absence of left leg below knee; Z99.2 Dependence on renal dialysis; Z79.82 Long term (current) use of aspirin; Z79.4 Long term (current) use of insulin
CPT/HCPCS: 31500; 32555; 36415; 36430; 36600; 70450; 71045; 71250; 73510; 73560; 73600; 73700; 74018; 74176; 78452; 80048; 80053; 80061; 80076; 80202; 82140; 82270; 82550; 82553; 82607; 82728; 82746; 82803; 82947; 82962; 83540; 83605; 83690; 83735; 84100; 84439; 84443; 84484; 85014; 85018; 85025; 85045; 85610; 85730; 86850; 86900; 86901; 86920; 87040; 87070; 87075; 87081; 87086; 87340; 90935; 92950; 93005; 93017; 93306; 93922; 93970; 94002; 94003; 94770; 96374; 96375; 97163; A9500; A9505; C1751; C9113; J0171; J0282; J0360; J0461; J0690; J0692; J0696; J0886; J1170; J1265; J1644; J1720; J1815; J1885; J2060; J2250; J2270; J2405; J2765; J2785; J2795; J3010; J3370; J3475; J3480; J7030; J7040; J7042; J7050; J7060; J7070; P9016